=== PATIENT | male | born 1950 | race Caucasian/White ===

== ENCOUNTER → 2017-12-08 | Outpatient (CLI) | payer MEDICARE ==
[2017-12-08 19:48] LABS: Blood Urea Nitrogen 19 mg/dL (9-20)
--- NOTE | 2017-12-08 22:53 | MR ---
MRI CERVICAL SPINE: MRI THORACIC SPINE: CLINICAL HISTORY: Recurrent falls per order. Pain and weakness into both arms and fingers with histor y of Guillian Glasgow. Arm and leg weakness with dialysis use in March 22, 2011. TECHNIQUE: Multiplanar, multisequence imaging of the cervical the thoracic spine are performed withou t and with IV contrast, 10 cc of gadolinium was given intravenously. COMPARISON: None. FINDINGS: C-SPINE: Sagittal images of the cervical spine show the craniocervical junction to appear within normal limits . The cervical and upper thoracic spinal cord is normal in course, caliber, and signal. Vertebral a lignment is 3. The vertebral body heights are normal. There is [id number]-[id number] disc space narrowing C4-C5 through C6-C7 levels. Multilevel posterior disc herniations are seen C3-C4 through C6-C7 level s on sagittal images. The bone marrow signal intensity is within normal limits. No suspicious enhance ment is noted. [id number] multilevel anterior spurring is seen. Axial images show the C2-C3 level to appear within normal limits. Axial images at the C3-C4 level shows central disc protrusion effacing the anterior thecal sac, there is additional right foraminal disc protrusion component, there is mild to moderate right-sided neura l foraminal narrowing. Left-sided neural foramina is patent. Axial images at C4-C5 level showed broad based posterior disc protrusion effacing anterior thecal sac , there is mild bilateral neural foraminal narrowing noted. Axial images at C5-C6 level show more prominent broad-based posterior disc protrusion with right para central/foraminal component, there is effacement of the anterior thecal sac with fairly moderate bila teral neural foraminal narrowing. Axial images at C6-C7 levels are broad-based posterior disc protrusion effacing anterior thecal sac a nd causing moderate bilateral neural foraminal narrowing. Axial images at C7-T1 level showed right paracentral/foraminal spur disc complex effacing anterior le ft thecal sac and causing asymmetric moderate to advanced right-sided neural foraminal narrowing. Lef t-sided neural foramina is patent. IMPRESSION: Straightening of cervical spine with multilevel degenerative changes seen as detailed abo ve. T-SPINE: FINDINGS: Spinal cord shows normal course, caliber, and signal as it courses the thoracic spine. Ana tebral body heights and alignment are satisfactory. Disc space heights are fairly well maintained. Th ere are small posterior disc herniations noted at T6-T7, T7-T8, T9-T10, T10-T11 levels effacing anter ior thecal sac on sagittal images . Bone marrow signal intensity shows some heterogeneous endplate ch anges in the lower thoracic spine. There is mild to moderate multilevel anterior and lateral spurring . No suspicious enhancement is seen. Review of the axial images also shows facet arthropathy and ligamentum flavum hypertrophy effacing po sterior lateral thecal sac T10-11 and T11-T12 levels. No additional disc herniations are seen. No efrain picious enhancement is noted. IMPRESSION: Multilevel degenerative changes in the mid to lower thoracic spine as detailed above.
== END ==
LOC: RADMRIMAIN 19:12
PROVIDERS: ATTEND Psychiatry & Neurology Neurology
DX: M48.02 Spinal stenosis, cervical region (principal); M99.71 Connective tissue and disc stenosis of intervertebral foramina of cervical region; M50.21 Other cervical disc displacement, high cervical region; M47.812 Spondylosis without myelopathy or radiculopathy, cervical region; M51.24 Other intervertebral disc displacement, thoracic region; M46.94 Unspecified inflammatory spondylopathy, thoracic region; M47.814 Spondylosis without myelopathy or radiculopathy, thoracic region; Z79.899 Other long term (current) drug therapy
CPT/HCPCS: 82565; 84520; 72156; 72157; A9581

== ENCOUNTER → 2018-01-19 | Outpatient (CLI) | payer MEDICARE ==
--- NOTE | 2018-01-20 07:30 | MR ---
MR brain without contrast HISTORY: Gait dysfunction and repeated falls Multiplanar multisequence imaging obtained through the brain No comparisons There is no restricted diffusion. Corpus callosum, pituitary, cervical medullary junction, cerebellop ontine angles are normal. Orbits show symmetric appearance. There is no hemorrhage or hydrocephalus. Brain signal is remarkable for punctate focus of hyperintensity within the subcortical white matter a xial image 23 in the left frontal lobe of questionable clinical significance.. Minimal inflammatory c hange right mastoid air cells. Mild mucosal disease present in the maxillary sinuses. There is age-re lated atrophy. IMPRESSION: No abnormality evident to account for patient's symptoms. Mild sinus disease, inflammator y change right mastoid air cells. Nonspecific focus of demyelination of questionable clinical signifi cance.
== END ==
LOC: RADMRIMAIN 19:00
PROVIDERS: ATTEND Psychiatry & Neurology Neurology
DX: R26.9 Unspecified abnormalities of gait and mobility (principal); R29.6 Repeated falls
CPT/HCPCS: 70551

== ENCOUNTER → 2019-03-30 | Outpatient (CLI) | payer MEDICARE ==
--- NOTE | 2019-03-30 15:18 | US ---
EXAMINATION TYPE: US carotid duplex BILAT DATE OF EXAM: 03/30/2019 COMPARISON: MR brain CLINICAL HISTORY: R42 LIGHT HEADEDNESS. Dizziness is noted after walking 1mile EXAM MEASUREMENTS: RIGHT: Peak Systolic Velocity (PSV) cm/sec ----- Right CCA: 79.1 ----- Right ICA: 62.3 ----- Right ECA: 89.2 ICA/CCA ratio: 0.8 RIGHT: End Diastole cm/sec ----- Right CCA: 24.8 ----- Right ICA: 17.2 ----- Right ECA: 15.9 LEFT: Peak Systolic Velocity (PSV) cm/sec ----- Left CCA: 79.1 ----- Left ICA: 66.8 ----- Left ECA: 73.1 ICA/CCA ratio: 0.8 LEFT: End Diastole cm/sec ----- Left CCA: 28.5 ----- Left ICA: 25.1 ----- Left ECA: 13.8 VERTEBRALS (direction of flow): Right Vertebral: Antegrade Left Vertebral: Antegrade Rhythm: Normal Very mild intimal wall thickening, but PSV is wnl bilaterally. IMPRESSION: Mild degree of grayscale atheromatous plaquing with no sonographically evident hemodynam ically significant stenosis within either visualized carotid arterial system. Criteria for Assigning % of Stenosis / Diameter reduction (Estimation based on the indirect measurements of the internal carotid artery velocities (ICA PSV). 1. Normal (no stenosis)=ICA PSV < 125 cm/s: ratio < 2.0: ICA EDV<40 cm/s. 2. Less than 50% stenosis=ICA PSV < 125 cm/s: ratio < 2.0: ICA EDV<40 cm/s. 3. 50 to 69% stenosis=ICA PSV of 125 to 230 cm/s: ration 2.0 ? 4.0: ICA EDV 40-100 cm/s. 4. Greater than 70% stenosis to near occlusion= ICA PSV > 230 cm/s: ratio > 4.0: ICA EDV > 100 cm/s. 5. Near occlusion= ICA PSV velocities may be low or undetectable: variable ratio and ICA EDV. 6. Total occlusion=unable to detect flow.
== END | disposition home or self-care (01) ==
LOC: RADUSWWP 13:24
PROVIDERS: ATTEND Internal Medicine Geriatric Medicine
DX: I65.23 Occlusion and stenosis of bilateral carotid arteries (principal)
CPT/HCPCS: 93880

== ENCOUNTER → 2019-04-12 | Outpatient (CLI) | payer MEDICARE, OTHER ==
--- NOTE | 2019-04-19 10:41 | HM ---
HOLTER MONITOR REPORT The 48-hour Holter monitor. 1. The -Holter monitor shows sinus mechanism with a mild MN prolongation. Sinus rhythm. 2. Sinus tachycardia. Heart rate is 54 to 138 beats per minute. Average 71 beats per minute. 3. No significant arrhythmias. 4. Occasional premature beats. JOSHUA / KELL: [id number] /
== END | disposition home or self-care (01) ==
LOC: RADECHMAIN 12:38
PROVIDERS: ATTEND Nurse Practitioner Gerontology
DX: R00.0 Tachycardia, unspecified (principal)
CPT/HCPCS: 93225; 93226

== ENCOUNTER → 2019-07-13 | Outpatient (CLI) | payer MEDICARE, OTHER ==
--- NOTE | 2019-07-13 11:44 | XR ---
EXAMINATION TYPE: XR lumbar spine 2 or 3V DATE OF EXAM: 07/13/2019 COMPARISON: None HISTORY: Falls, pain TECHNIQUE: Three-view lumbar spine FINDINGS: There 5 lumbar-type vertebral bodies. Pedicles are intact. There is diffuse loss of disc he ight throughout the lumbar spine greatest to L2-3 through L5-S1. Vacuum phenomenon is present L3-4, L 4-5, L5-S1. Spondylosis is present. Some posterior endplate spurring may be present L2-3 and L5-S1. MRI can be performed if additional evaluation would be of benefit. IMPRESSION: 1. No acute osseous abnormality. 2. Advanced degenerative disc changes and spondylosis discussed above.
== END | disposition home or self-care (01) ==
LOC: RADXRMAIN 10:30
PROVIDERS: ATTEND Internal Medicine Geriatric Medicine
DX: M47.896 Other spondylosis, lumbar region (principal)
CPT/HCPCS: 72100

== ENCOUNTER → 2019-08-17 | Outpatient (CLI) | payer MEDICARE, OTHER ==
--- NOTE | 2019-08-17 14:17 | MR ---
EXAMINATION TYPE: MR lumbar spine wo/w con DATE OF EXAM: 08/17/2019 1:28 PM COMPARISON: NONE HISTORY: Spinal Stenosis CONTRAST: The patient was injected with 10 mL intravenous Gadavist gadolinium contrast. Multiplanar, MultiSpin echo imaging of the lumbar spine was performed. L1-L2: Normal disc appearance without desiccation. No herniation, protrusion or disc bulging. No ca nal stenosis is present. Foramina are patent bilaterally. L2-L3: Severe disc desiccation with degenerative endplate marrow change and vacuum disc. Moderate cir cumferential disc bulge greatest posteriorly with hypertrophy of the ligamentum flavum and facet join t arthropathy resulting in moderate central stenosis as well as bilateral foraminal encroachment. L3-L4: Severe disc desiccation with degenerative endplate marrow change and vacuum disc. Moderate cir cumferential disc bulge greatest posteriorly with hypertrophy of the ligamentum flavum and facet join t arthropathy resulting in moderate central stenosis as well as bilateral foraminal encroachment. L4-L5: Moderate disc desiccation with posterior disc bulge. Constriction of the thecal sac with mild central stenosis. Bilateral lateral recess stenosis and bilateral foraminal encroachment. Facet joint arthropathy. L5-S1: Left-sided hemilaminectomy change. Severe disc desiccation with vacuum disc. Partially enhanci ng focus of decreased signal left paracentral region may reflect granulation tissue however a recurre nt disc herniation is difficult to exclude. There is left lateral recess stenosis and foraminal encro achment. Lumbar segments are intact. No paraspinal masses are identified. Conus medullaris has a normal appe arance. Multilevel degenerative endplate marrow change. IMPRESSION: 1. Multilevel degenerative disc disease as outlined above. 2. Multilevel central stenosis. 3. Recurrent disc herniation is difficult to exclude paracentrally and to the left at L5-S1 with left lateral recess stenosis and foraminal encroachment. Left hemilaminectomy changes at this level.
== END | disposition home or self-care (01) ==
LOC: RADMRIMAIN 11:51
PROVIDERS: ATTEND Internal Medicine Geriatric Medicine
DX: M51.36 Other intervertebral disc degeneration, lumbar region (principal); M48.061 Spinal stenosis, lumbar region without neurogenic claudication; Z98.890 Other specified postprocedural states
CPT/HCPCS: 72158; A9585

== ENCOUNTER → 2019-09-16 | Outpatient (CLI) | payer MEDICARE, OTHER ==
--- NOTE | 2019-09-16 19:20 | MR ---
EXAMINATION TYPE: MR brain wo/w con DATE OF EXAM: 09/16/2019 COMPARISON: MRI brain 01/19/2018 HISTORY: Falls, anteropulsion. Gait abnormality. TECHNIQUE: Multiplanar, multisequence images of the brain and brainstem is performed without and with IV contras t, utilizing 10.5 mL intravenous Gadavist . FINDINGS: Diffusion weighted images demonstrate no evidence of a recent infarct or other diffusion ab normality. There is no extra-axial fluid collection or significant white matter signal abnormality. Prominent ventricular temporal horns are unchanged versus 2018 comparison and most likely related to age-related volume loss. Otherwise the ventricular system and cisternal spaces are normal in size an d appearance. Midline structures demonstrate normal morphology. The craniocervical junction demonstrates normal al ignment with degenerative changes at the atlantooccipital joint. Post contrast images demonstrate no abnormal enhancement. The dural venous sinuses appear patent. The visualized sinuses are clear and t he globes are intact. Small focus of fluid of the right mastoid air cells unchanged versus 2018. IMPRESSION: No abnormality to account for patient's symptoms of falls and gait abnormality.
== END | disposition home or self-care (01) ==
LOC: RADMRIMAIN 08:27
PROVIDERS: ATTEND Psychiatry & Neurology Neurology
DX: R26.89 Other abnormalities of gait and mobility (principal)
CPT/HCPCS: 70553; A9585

== ENCOUNTER → 2019-10-25 | Outpatient (CLI) | payer MEDICARE, OTHER ==
--- NOTE | 2019-10-25 17:29 | MR ---
EXAMINATION TYPE: MR cervical spine wo con DATE OF EXAM: 10/25/2019 COMPARISON: None HISTORY: 69-year-old male Recurrent falls; r/o myelopathy TECHNIQUE: Multiplanar, multisequence images of the cervical spine were acquired. FINDINGS: No craniocervical junction abnormality, predental space widening, or prevertebral soft tissue swellin g. There is grade 1 anterolisthesis at C3-C4. Otherwise, alignment is maintained. No suspicious bone marrow replacement. Scattered facet and uncovertebral joint degenerative change. Moderate degenerative disc disease from C4 through C7 levels with disc space narrowing, disc desiccat ion, disc osteophyte complex formation. At C2-C3, mild facet arthropathy. No significant canal or foraminal stenosis. At C3-C4, mild discussed by complex formation with ligamentum flavum thickening and facet and uncover tebral joint arthropathy. Changes result in moderate right neuroforaminal stenosis. Mild overall narr owing of the spinal canal. At C4-C5, as discussed by complex formation with uncovertebral joint and facet degenerative change. M ild overall narrowing of the spinal canal. No significant neural foraminal stenosis. At C5-C6, broad-based disc osteophyte complex with ligamentum flavum thickening and uncovertebral devin nt and facet degenerative change. Changes result in moderate right greater than left neuroforaminal s tenosis. There is mild overall spinal canal stenosis with abutment and slight flattening of the ventr al cord. At C6-C7, broad-based disc osteophyte complex with hypertrophic uncovertebral joint and facet arthrop athy. Changes result in moderate to severe left and moderate right neuroforaminal stenosis. Mild over all spinal canal stenosis with impression on the ventral thecal sac but no cord contact or cord jef ening. At C7-T1, there is a right paracentral disc osteophyte complex with facet and uncovertebral joint art hropathy. Changes result in moderate right neuroforaminal stenosis. No spinal canal stenosis. Normal course and signal intensity of the cervical spinal cord. No prevertebral or paravertebral soft tissue abnormality seen. IMPRESSION: 1. Moderate multilevel spondylotic change. Degenerative grade 1 anterolisthesis at C3-C4. 2. Multilevel mild spinal canal stenoses. At some levels, disc osteophyte complex abuts and slightly flattens the ventral cord. No cord compression or myelopathic cord signal change. 3. Variable moderate neural foraminal stenoses as outlined above, more moderate to severe on the left at C6-C7.
== END | disposition home or self-care (01) ==
LOC: RADMRIMAIN 11:55
PROVIDERS: ATTEND Psychiatry & Neurology Neurology
DX: M48.02 Spinal stenosis, cervical region (principal); Z91.81 History of falling; M25.78 Osteophyte, vertebrae
CPT/HCPCS: 72141

== ENCOUNTER 2020-10-01 18:20 | Inpatient (IN) | payer MEDICARE, OTHER ==
[2020-10-01] MEDS ORDERED: ACETAMINOPHEN TAB 500 MG TAB PO STA (18:39)
[2020-10-01] MEDS ORDERED: IBUPROFEN 600 MG TAB PO STA (18:39)
--- NOTE | 2020-10-01 18:42 | ED ---
General Adult HPI - General Chief complaint: Altered Mental Status Stated complaint: memory loss/fever Time Seen by Provider: 10/01/20 18:34 Source: patient, family, RN notes reviewed Mode of arrival: wheelchair Limitations: no limitations - History of Present Illness Initial comments: Patient is a pleasant [age]-year-old male presenting to the emergency department with confusion and fever. Son is present and provides majority of history. Onset of symptoms was today. Patient did seem somewhat confused about several things. They did check his temperature at 102.0 at home. Patient does admit to having mild cough recently. Son has noticed also mild cough. Nonproductive. No urinary symptoms. No abdominal pain. No other upper respiratory symptoms. Patient did not receive covid vaccination secondary to history of Guellian barre - Related Data Home Medications Medication Instructions Recorded Confirmed Aspirin EC [Ecotrin Low Dose] 81 mg PO DAILY 10/01/20 10/01/20 Carbidopa-Levodopa 25-100 mg 1.5 tab PO TID 10/01/20 10/01/20 [Sinemet 25-100] Levothyroxine Sodium [Synthroid] 150 mcg PO DAILY 10/01/20 10/01/20 Multivitamins, Thera [Multivitamin 1 tab PO DAILY 10/01/20 10/01/20 (formulary)] Pregabalin [Lyrica] 150 mg PO TID 10/01/20 10/01/20 Tamsulosin HCl [Flomax] 0.4 mg PO DAILY 10/01/20 10/01/20 metFORMIN HCL [Glucophage] 1,000 mg PO BID 10/01/20 10/01/20 Allergies Allergy/AdvReac Type Severity Reaction Status Date / Time Sulfa (Sulfonamide Allergy Unknown Verified 10/01/20 20:11 Antibiotics) Review of Systems ROS Statement: Those systems with pertinent positive or pertinent negative responses have been documented in the HPI. ROS Other: All systems not noted in ROS Statement are negative. Constitutional: Reports: fever, chills, weakness Eyes: Denies: eye pain ENT: Denies: ear pain Respiratory: Reports: cough. Denies: dyspnea Cardiovascular: Denies: chest pain Endocrine: Reports: fatigue Gastrointestinal: Denies: abdominal pain, nausea, vomiting Genitourinary: Denies: dysuria Musculoskeletal: Denies: back pain Skin: Denies: rash Neurological: Reports: confusion. Denies: weakness Past Medical History Past Medical History: Diabetes Mellitus Additional Past Medical History / Comment(s): guillian-barre syndrome, parkinsons History of Any Multi-Drug Resistant Organisms: None Reported Past Surgical History: Back Surgery Past Psychological History: No Psychological Hx Reported Smoking Status: Never smoker Past Alcohol Use History: None Reported Past Drug Use History: None Reported General Exam Limitations: no limitations General appearance: alert, in no apparent distress Head exam: Present: atraumatic Eye exam: Present: normal appearance, PERRL, EOMI ENT exam: Present: normal oropharynx Neck exam: Present: normal inspection, full ROM. Absent: tenderness, meningismus Respiratory exam: Present: normal lung sounds bilaterally Cardiovascular Exam: Present: regular rate, normal rhythm GI/Abdominal exam: Present: soft. Absent: tenderness Extremities exam: Present: normal inspection Neurological exam: Present: alert, CN II-XII intact. Absent: motor sensory deficit Expanded Patient oriented to: Absent: time Psychiatric exam: Present: normal affect, normal mood Skin exam: Present: normal color Course Vital Signs 10/01/20 10/01/20 10/01/20 18:21 18:48 20:24 Temperature 99.8 F H 103.2 F H 100.4 F H Pulse Rate 109 H 108 H 91 Respiratory 18 18 18 Rate Blood Pressure 149/79 139/81 122/79 O2 Sat by Pulse 96 92 L 95 Oximetry - Reevaluation(s) Reevaluation #1: 10/01/20 21:11 There is concern for sepsis diagnosed at 2030. Blood culture and lactic acid and IV antibiotics have all been ordered. EKG Findings - EKG Comments: EKG Findings:: Sinus tachycardia with rate of 107. WA 172. QRS 90. QT 36. QTc 408. Normal axis. Q wave in lead III. No acute ST change. Medical Decision Making - Medical Decision Making Patient reevaluated and significantly improved. Patient updated on results and plan. Patient is alert and oriented 3. Case discussed with Dr. Robert, covering Dr. davis, who will admit. - Lab Data Result diagrams: 10/01/20 18:46 10/01/20 18:46 Lab Results 10/01/20 10/01/20 10/01/20 Range/Units 18:46 18:46 18:46 WBC 9.3 (3.8-10.6) k/uL RBC 4.99 (4.30-5.90) m/uL Hgb 15.4 (13.0-17.5) gm/dL Hct 45.3 (39.0-53.0) % MCV 90.8 (80.0-100.0) fL MCH 30.8 (25.0-35.0) pg MCHC 33.9 (31.0-37.0) g/dL RDW 14.4 (11.5-15.5) % Plt Count 189 (150-450) k/uL MPV 7.9 Neutrophils % 87 % Lymphocytes % 7 % Monocytes % 2 % Eosinophils % 2 % Basophils % 0 % Neutrophils # 8.1 H (1.3-7.7) k/uL Lymphocytes # 0.7 L (1.0-4.8) k/uL Monocytes # 0.2 (0-1.0) k/uL Eosinophils # 0.2 (0-0.7) k/uL Basophils # 0.0 (0-0.2) k/uL PT 10.7 (9.0-12.0) sec INR 1.0 (<1.2) APTT 21.1 L (22.0-30.0) sec Sodium (137-145) mmol/L Potassium (3.5-5.1) mmol/L Chloride (98-107) mmol/L Carbon Dioxide (22-30) mmol/L Anion Gap mmol/L BUN (9-20) mg/dL Creatinine (0.66-1.25) mg/dL Est GFR (CKD-EPI)AfAm (>60 ml/min/1.73 sqM) Est GFR (CKD-EPI)NonAf (>60 ml/min/1.73 sqM) Glucose (74-99) mg/dL Lactic Ac Sepsis Rflx Plasma Lactic Acid Be (0.7-2.0) mmol/L Calcium (8.4-10.2) mg/dL Total Bilirubin (0.2-1.3) mg/dL AST (17-59) U/L ALT (4-49) U/L Alkaline Phosphatase (38-126) U/L Total Protein (6.3-8.2) g/dL Albumin (3.5-5.0) g/dL Urine Color Yellow Urine Appearance Clear (Clear) Urine pH 7.0 (5.0-8.0) Ur Specific [place] 1.016 (1.001-1.035) Urine Protein Negative (Negative) Urine Glucose (UA) Negative (Negative) Urine Ketones Trace H (Negative) Urine Blood Large H (Negative) Urine Nitrite Negative (Negative) Urine Bilirubin Negative (Negative) Urine Urobilinogen <2.0 (<2.0) mg/dL Ur Leukocyte Esterase Large H (Negative) Urine RBC 110 H (0-5) /hpf Urine WBC 69 H (0-5) /hpf Urine Bacteria Moderate H (None) /hpf Urine Mucus Rare H (None) /hpf Coronavirus (PCR) (Not Detectd) 10/01/20 10/01/20 10/01/20 Range/Units 18:46 18:46 18:57 WBC (3.8-10.6) k/uL RBC (4.30-5.90) m/uL Hgb (13.0-17.5) gm/dL Hct (39.0-53.0) % MCV (80.0-100.0) fL MCH (25.0-35.0) pg MCHC (31.0-37.0) g/dL RDW (11.5-15.5) % Plt Count (150-450) k/uL MPV Neutrophils % % Lymphocytes % % Monocytes % % Eosinophils % % Basophils % % Neutrophils # (1.3-7.7) k/uL Lymphocytes # (1.0-4.8) k/uL Monocytes # (0-1.0) k/uL Eosinophils # (0-0.7) k/uL Basophils # (0-0.2) k/uL PT (9.0-12.0) sec INR (<1.2) APTT (22.0-30.0) sec Sodium 137 (137-145) mmol/L Potassium 4.5 (3.5-5.1) mmol/L Chloride 104 (98-107) mmol/L Carbon Dioxide 22 (22-30) mmol/L Anion Gap 11 mmol/L BUN 17 (9-20) mg/dL Creatinine 0.88 (0.66-1.25) mg/dL Est GFR (CKD-EPI)AfAm >90 (>60 ml/min/1.73 sqM) Est GFR (CKD-EPI)NonAf 88 (>60 ml/min/1.73 sqM) Glucose 134 H (74-99) mg/dL Lactic Ac Sepsis Rflx Plasma Lactic Acid Be 3.0 H* (0.7-2.0) mmol/L Calcium 10.6 H (8.4-10.2) mg/dL Total Bilirubin 0.6 (0.2-1.3) mg/dL AST 72 H (17-59) U/L ALT 60 H (4-49) U/L Alkaline Phosphatase 87 (38-126) U/L Total Protein 7.4 (6.3-8.2) g/dL Albumin 4.3 (3.5-5.0) g/dL Urine Color Urine Appearance (Clear) Urine pH (5.0-8.0) Ur Specific [place] (1.001-1.035) Urine Protein (Negative) Urine Glucose (UA) (Negative) Urine Ketones (Negative) Urine Blood (Negative) Urine Nitrite (Negative) Urine Bilirubin (Negative) Urine Urobilinogen (<2.0) mg/dL Ur Leukocyte Esterase (Negative) Urine RBC (0-5) /hpf Urine WBC (0-5) /hpf Urine Bacteria (None) /hpf Urine Mucus (None) /hpf Coronavirus (PCR) Not Detected (Not Detectd) 10/01/20 Range/Units 19:08 WBC (3.8-10.6) k/uL RBC (4.30-5.90) m/uL Hgb (13.0-17.5) gm/dL Hct (39.0-53.0) % MCV (80.0-100.0) fL MCH (25.0-35.0) pg MCHC (31.0-37.0) g/dL RDW (11.5-15.5) % Plt Count (150-450) k/uL MPV Neutrophils % % Lymphocytes % % Monocytes % % Eosinophils % % Basophils % % Neutrophils # (1.3-7.7) k/uL Lymphocytes # (1.0-4.8) k/uL Monocytes # (0-1.0) k/uL Eosinophils # (0-0.7) k/uL Basophils # (0-0.2) k/uL PT (9.0-12.0) sec INR (<1.2) APTT (22.0-30.0) sec Sodium (137-145) mmol/L Potassium (3.5-5.1) mmol/L Chloride (98-107) mmol/L Carbon Dioxide (22-30) mmol/L Anion Gap mmol/L BUN (9-20) mg/dL Creatinine (0.66-1.25) mg/dL Est GFR (CKD-EPI)AfAm (>60 ml/min/1.73 sqM) Est GFR (CKD-EPI)NonAf (>60 ml/min/1.73 sqM) Glucose (74-99) mg/dL Lactic Ac Sepsis Rflx Y Plasma Lactic Acid Be (0.7-2.0) mmol/L Calcium (8.4-10.2) mg/dL Total Bilirubin (0.2-1.3) mg/dL AST (17-59) U/L ALT (4-49) U/L Alkaline Phosphatase (38-126) U/L Total Protein (6.3-8.2) g/dL Albumin (3.5-5.0) g/dL Urine Color Urine Appearance (Clear) Urine pH (5.0-8.0) Ur Specific [place] (1.001-1.035) Urine Protein (Negative) Urine Glucose (UA) (Negative) Urine Ketones (Negative) Urine Blood (Negative) Urine Nitrite (Negative) Urine Bilirubin (Negative) Urine Urobilinogen (<2.0) mg/dL Ur Leukocyte Esterase (Negative) Urine RBC (0-5) /hpf Urine WBC (0-5) /hpf Urine Bacteria (None) /hpf Urine Mucus (None) /hpf Coronavirus (PCR) (Not Detectd) - Radiology Data Radiology results: report reviewed (Computed tomography scan of the brain shows no hemorrhage or mass effect or shift. Mildly prominent ventricular system, possible normal pressure hydrocephalus.), image reviewed (Chest x-ray shows no acute process) Critical Care Time Critical Care Time: Yes Total Critical Care Time: 33 Disposition Clinical Impression: Sepsis, Urinary tract infection Disposition: ADMITTED IP TO THIS HOSP Is patient prescribed a controlled substance at d/c from ED?: No Referrals: Guru Davis MD [Primary Care Provider] - 1-2 days Decision Time: 21:12
[2020-10-01] MEDS: SODIUM CHLORIDE 0.9% 500 ML 500 ML IV SCH ×2 (18:53→20:10)
[2020-10-01 18:59] LABS: Basophils % (A) 0 %; Eosinophils # (A) 0.2 k/uL (0-0.7); Eosinophils % (A) 2 %; HCT 45.3 % (39.0-53.0); HGB 15.4 gm/dL (13.0-17.5); Lymphocytes # (A) 0.7 k/uL (1.0-4.8); Lymphocytes % (A) 7 %; MCH 30.8 pg (25.0-35.0); MCHC 33.9 g/dL (31.0-37.0); MCV 90.8 fL (80.0-100.0); Mean Platelet Volume 7.9; Monocytes # (A) 0.2 k/uL (0-1.0); Monocytes % (A) 2 %; Neutrophils # (A) 8.1 k/uL (1.3-7.7); Neutrophils % (A) 87 %; Platelet Count 189 k/uL (150-450); RBC 4.99 m/uL (4.30-5.90); RDW 14.4 % (11.5-15.5); WBC 9.3 k/uL (3.8-10.6)
[2020-10-01 19:06] LABS: ALT 60 U/L (4-49); AST 72 U/L (17-59); African American GFR (CKD) >90 (>60 ml/min/1.73 sqM); Albumin 4.3 g/dL (3.5-5.0); Alkaline Phosphatase 87 U/L (38-126); Anion Gap 11 mmol/L; Blood Urea Nitrogen 17 mg/dL (9-20); Calcium 10.6 mg/dL (8.4-10.2); Carbon Dioxide 22 mmol/L (22-30); Chloride 104 mmol/L (98-107); Glucose 134 mg/dL (74-99); Non-African American GFR(CKD) 88 (>60 ml/min/1.73 sqM); Potassium 4.5 mmol/L (3.5-5.1); Sodium 137 mmol/L (137-145); Total Bilirubin 0.6 mg/dL (0.2-1.3); Total Protein 7.4 g/dL (6.3-8.2)
[2020-10-01] MEDS ORDERED: SODIUM CHLORIDE 0.9% 1,000 ML IV STA ×2 (19:13)
[2020-10-01 19:14] LABS: Prothrombin Time 10.7 sec (9.0-12.0)
--- NOTE | 2020-10-01 19:21 | CT ---
EXAMINATION TYPE: CT brain wo con DATE OF EXAM: 10/01/2020 1906 COMPARISON: Brain MRI 09/16/2019 and 01/19/2018 HISTORY: Altered mental status. CT DLP: 1153.4 mGycm Automated exposure control for dose reduction was used. FINDINGS: Acute intracranial hemorrhage, mass effect, or midline shift. Mildly prominent ventricular system, wh ich has mildly progressed compared to prior and is slightly out of proportion for the sulci. White di fferentiation is preserved. No CT evidence of large vessel ischemic changes. IMPRESSION: 1. NO ACUTE INTRACRANIAL HEMORRHAGE, MASS EFFECT, OR MIDLINE SHIFT. 2. MILDLY PROMINENT VENTRICULAR SYSTEM SLIGHTLY OUT OF PROPORTION FOR THE SULCI, WHICH HAS PROGRESSED COMPARED TO PRIOR. FINDINGS MAY RELATE TO CENTRAL ATROPHY; HOWEVER, RECOMMEND CLINICAL CORRELATION F OR NORMAL PRESSURE HYDROCEPHALUS.
--- NOTE | 2020-10-01 19:22 | XR ---
EXAMINATION TYPE: XR chest 2V DATE OF EXAM: 10/01/20201913 COMPARISON: NONE HISTORY: Altered mental status TECHNIQUE: Frontal and lateral views of the chest are obtained. FINDINGS: There is no focal air space opacity, pleural effusion, or pneumothorax seen. The cardiac silhouette size is within normal limits. The osseous structures are intact. IMPRESSION: No acute cardiopulmonary process.
[2020-10-01 19:33] LABS: Partial Thromboplastin Time 21.1 sec (22.0-30.0)
[2020-10-01 20:36] LABS: Appearance,Urine Clear (Clear); Bacteria,Urine Moderate /hpf; Bilirubin,Urine Negative (Negative); Blood,Urine Large (Negative); Color,Urine Yellow; Glucose,Urine (UA) Negative (Negative); Ketones,Urine Trace (Negative); Leukocyte Esterase,Urine Large (Negative); Mucus,Urine Rare /hpf; Nitrite,Urine Negative (Negative); Protein,Urine Negative (Negative); RBC,Urine 110 /hpf (0-5); Specific Gravity,Urine 1.016 (1.001-1.035); Urobilinogen,Urine <2.0 mg/dL (<2.0); WBC,Urine 69 /hpf (0-5)
[2020-10-01] MEDS ORDERED: NALOXONE 0.4 MG/ML 1 ML VIAL IV PRN (21:13)
[2020-10-01] MEDS: SODIUM CHLORIDE 0.9% 1,000 ML IV SCH (21:15)
[2020-10-02] MEDS: LEVOTHYROXINE 75 MCG TAB PO SCH (05:43)
[2020-10-02] MEDS: SODIUM CHLORIDE 0.9% 1,000 ML IV SCH (05:49)
[2020-10-02] MEDS ORDERED: metFORMIN 500 MG TAB PO SCH (09:00)
[2020-10-02] MEDS: TAMSULOSIN 0.4 MG CAP.ER.24H PO SCH (09:24)
[2020-10-02] MEDS: PREGABALIN 75 MG CAP PO SCH ×3 (09:25→21:15)
[2020-10-02] MEDS: ASPIRIN 81 MG PO SCH (09:25)
[2020-10-02] MEDS: CARBIDOPA-LEVODOPA 25-100 MG 1 EACH TAB PO SCH ×3 (09:27→21:16)
--- NOTE | 2020-10-02 10:24 | P.HPIM ---
History of Present Illness H&P Date: 10/02/20 HISTORY OF PRESENT ILLNESS This is a 70-year-old male patient of Dr. Pennington with past medical history of diabetes mellitus type 2, diabetic poly-neuropathy, Guillain-Hoffman syndrome in 2007, Parkinson's, hypothyroidism, chronic back pain with lumbar surgery approximately 25 years ago. He denies history of stroke. Patient has had ongoing problems with weakness and degenerative disc disease and follows with Dr. Erica Benitez) [facility]ists at [facility]. The patient has chronic tremor secondary to Parkinson's but he does go to the gym 4 times per week and is able to walk on a treadmill at 1.8 miles per hour. He does not use a cane or walker. Patient states that he was confused yesterday afternoon which occurred around 4 or 5 PM. Family past on the patient was feeling dizzy falling a lot and had a fall prior to coming into the hospital. Patient apparently was confused and unable to answer questions appropriately. Patient presented to [facility] emergency center with temperature max of 103.2, heart rate 109, blood pressure 149/79 and pulse ox 96%. EKG was sinus tachycardia with no acute ST changes. CBC was normal. Electrolytes and renal function within normal limits. Blood sugar 134. INR 1.0. Urinalysis clear, blood large, leukoesterase large, WBC 69, RBCs 110, bacteria moderate. Lactic acid 3.0. Calcium 10.6, total bilirubin 0.6, AST 72, ALT 60, apply phosphatase 87. Albumin 4.3. Coronavirus PCR not detected. est x-ray shows no acute cardio pulmonary process. CT of the brain revealed no acute intracranial hemorrhage, mass effect or midline shift. Mildly prominent ventricular system slightly out of proportion for the sulci which has progressed compared to prior. Findings may be related to central atrophy however recommend clinical correlation for normal pressure hydrocephalus. Patient admitted to the [facility] floor and started on ceftriaxone and IV fluids, consult with neurology added. REVIEW OF SYSTEMS Constitutional: Noted fever, no chills, no night sweats. No weight change. No weakness, fatigue or lethargy. No daytime sleepiness. EENT: No headache. No blurred vision or double vision, no loss of vision. No loss of Hearing, no ringing in the ears, no dizziness. No nasal drainage or congestion. No epistaxis. No sore throat. Lungs: No shortness of breath, cough, no sputum production. No wheezing. Cardiovascular: No chest pain, no lower extremity edema. No palpitations. No paroxysmal nocturnal dyspnea. No orthopnea. Reported dizziness. No syncopal e pisodes. Abdominal: No abdominal pain. No nausea, vomiting. No diarrhea. No constipation. No bloody or tarry stools.. No loss of appetite. Genitourinary: No dysuria, increased frequency, urgency. No urinary retention. Musculoskeletal: No myalgias. No muscle weakness, reported gait dysfunction, reported frequent falls. Reported chronic back pain. Reported chronic neck pain. Integumentary: No wounds, no lesions. No rash or pruritus. No unusual bruising. No change in hair or nails. Neurologic: No aphasia. No facial droop. Reported change in mentation with confusion. No head injury. No headache. No paralysis. No paresthesia. Psychiatric: No depression. No anxiety. No mood swings. Endocrine: No abnormal blood sugars. No weight change. No excessive sweating or thirst. No cold intolerance. SOCIAL HISTORY Patient is a lifelong nonsmoker. He denies any alcohol or street drug use. He is using THC cream for neuropathy. FAMILY HISTORY Mother is alive at age 90 with no major medical problems. Father at age 88 from dementia. Patient has 2 brothers and 2 sisters with no major medical problems. Patient has one son and one daughter with no major medical problems.. PHYSICAL EXAMINATION Gen: This is a 70-year-old male patient, resting in bed and appears to be comfortable and in no acute distress. HEENT: Head is atraumatic, normocephalic. Pupils equal, round. Sclerae is anicteric. NECK: Supple. No JVD. No lymphadenopathy. No thyromegaly. LUNGS: Clear to auscultation. No wheezes or rhonchi. No intercostal retractions. HEART: Regular rate and rhythm. No murmur. ABDOMEN: Soft. Bowel sounds are present. No masses. No tenderness. EXTREMITIES: No pedal edema. No calf tenderness. Chronic numbness to the anterior pretibial areas residual from Guillain-[place]sa syndrome. NEUROLOGICAL: Patient is awake, alert and oriented x3. Cranial nerves 2 through 12 are grossly intact. Tremor noted. ASSESSMENT AND PLAN 1. Sepsis secondary to acute urinary tract infection. Continue ceftriaxone 2 g IV piggyback daily. Monitor urine culture and blood cultures. 2. Lactic acidosis secondary to sepsis. Patient is status post 2-1/2 L of IV fluids. 3. Infectious metabolic encephalopathy and rule out and rule out normal pressure hydrocephalus . Continue treatment and #1. Neurology consult. 4. Frequent falls possibly related to worsening Parkinson's, exacerbated by sepsis. PT and OT.h 5. Diabetes mellitus type 2. Continue metformin 1000 mg twice daily, NovoLog scale before meals and at bedtime. 6. Diabetic polyneuropathy. Continue Lyrica 150 mg 3 times daily. 7. Parkinson's. Continue Sinemet 251 101-1/2 3 times daily. 8 Hypothyroidism. Continue levothyroxine 150 Scott grams daily. 9. Guillain-Tulsa syndrome in 2007. 10. Benign prostatic hypertrophy. Continue Flomax or 0.4 mg daily. 11. GI prophylaxis. Protonix. 12. DVT prophylaxis. Heparin subcu. Patient will be admitted to the hospital for a minimum of 2 night stay. DISCHARGE PLAN Home, to be determined. PT and OT consults.. Impression and plan of care have been directed as dictated by the signing physician. Sophie Hitchcock nurse practitioner acting as scribe for signing physician. Past Medical History Past Medical History: Diabetes Mellitus Additional Past Medical History / Comment(s): guillian-barre syndrome, parkinsons, rt. shoulder rotator cuff repair, lasic eye surgery, L4-L5 laporoscopy History of Any Multi-Drug Resistant Organisms: None Reported Past Surgical History: Back Surgery Past Psychological History: No Psychological Hx Reported Smoking Status: Never smoker Past Alcohol Use History: None Reported Past Drug Use History: None Reported Medications and Allergies Home Medications Medication Instructions Recorded Confirmed Type Aspirin EC [Ecotrin Low Dose] 81 mg PO DAILY 10/01/20 10/01/20 History Carbidopa-Levodopa 25-100 mg 1.5 tab PO TID 10/01/20 10/01/20 History [Sinemet 25-100] Levothyroxine Sodium [Synthroid] 150 mcg PO DAILY 10/01/20 10/01/20 History Multivitamins, Thera [Multivitamin 1 tab PO DAILY 10/01/20 10/01/20 History (formulary)] Pregabalin [Lyrica] 150 mg PO TID 10/01/20 10/01/20 History Tamsulosin HCl [Flomax] 0.4 mg PO DAILY 10/01/20 10/01/20 History metFORMIN HCL [Glucophage] 1,000 mg PO BID 10/01/20 10/01/20 History Allergies Allergy/AdvReac Type Severity Reaction Status Date / Time Sulfa (Sulfonamide Allergy Unknown Verified 10/01/20 20:11 Antibiotics) Physical Exam Vitals: Vital Signs Temp Pulse Pulse Resp BP BP Pulse Ox 10/02/20 02:00 98.3 F 70 17 100/65 98 10/01/20 22:10 98.8 F 77 18 113/67 97 10/01/20 21:50 98.7 F 82 18 105/75 95 10/01/20 20:24 100.4 F H 91 18 122/79 95 10/01/20 18:48 103.2 F H 108 H 18 139/81 92 L 10/01/20 18:21 99.8 F H 109 H 18 149/79 96 Intake and Output 10/01/20 10/02/20 10/02/20 22:59 06:59 14:59 Other: Voiding Method Urinal # Voids 2 Weight 108.862 kg Results CBC & Chem 7: 10/01/20 18:46 10/01/20 18:46 Labs: Abnormal Lab Results - Last 24 Hours (Table) 10/01/20 10/01/20 10/01/20 Range/Units 18:46 18:46 18:46 Neutrophils # 8.1 H (1.3-7.7) k/uL Lymphocytes # 0.7 L (1.0-4.8) k/uL APTT 21.1 L (22.0-30.0) sec Glucose (74-99) mg/dL Plasma Lactic Acid Be (0.7-2.0) mmol/L Calcium (8.4-10.2) mg/dL AST (17-59) U/L ALT (4-49) U/L Urine Ketones Trace H (Negative) Urine Blood Large H (Negative) Ur Leukocyte Esterase Large H (Negative) Urine RBC 110 H (0-5) /hpf Urine WBC 69 H (0-5) /hpf Urine Bacteria Moderate H (None) /hpf Urine Mucus Rare H (None) /hpf 08/01/21 08/01/21 Range/Units 18:46 18:46 Neutrophils # (1.3-7.7) k/uL Lymphocytes # (1.0-4.8) k/uL APTT (22.0-30.0) sec Glucose 134 H (74-99) mg/dL Plasma Lactic Acid Be 3.0 H* (0.7-2.0) mmol/L Calcium 10.6 H (8.4-10.2) mg/dL AST 72 H (17-59) U/L ALT 60 H (4-49) U/L Urine Ketones (Negative) Urine Blood (Negative) Ur Leukocyte Esterase (Negative) Urine RBC (0-5) /hpf Urine WBC (0-5) /hpf Urine Bacteria (None) /hpf Urine Mucus (None) /hpf
--- NOTE | 2020-10-02 10:44 | US ---
EXAMINATION TYPE: US abdomen complete DATE OF EXAM: 10/02/2020 COMPARISON: NONE CLINICAL HISTORY: 70-year-old male elevated LFT, UTI r/o pyel. TECHNIQUE: Multiple sonographic images of the abdomen are obtained. FINDINGS: EXAM MEASUREMENTS: Liver Length: 18.4 cm Gallbladder Wall: .2 cm CBD: .5 cm Spleen: 13.6 cm Right Kidney: 11.9 x 5.0 x 5.2 cm Left Kidney: 12.7 x 5.8 x 5.1cm Pancreas: Only small portions of the pancreatic body are seen. Remainder is obscured by bowel gas sh adowing. Liver: Mildly enlarged, echogenic, and attenuating. The secondary limits assessment for focal lesions . Gallbladder: No gallstones or wall thickening. Evidence for sonographic Zhao's sign: No CBD: wnl Spleen: Borderline in size. Right Kidney: wnl Left Kidney: wnl Upper IVC: wnl Abd Aorta: Limited IMPRESSION: 1. Hepatomegaly (18.4 cm) with severe hepatic steatosis. This secondarily limits assessment for focal lesions by ultrasound. 2. No gallstones or biliary ductal dilatation. 3. No hydronephrosis on either side.
[2020-10-02] MEDS: MULTIVITAMINS, THERA 1 EACH TAB PO SCH (11:34)
--- NOTE | 2020-10-02 12:11 | ECHOF ---
Referral Reason:LVF MEASUREMENTS -------- HEIGHT: 180.3 cm WEIGHT: 108.9 kg BP: 120/76 RVIDd: 3.5 cm (< 3.3) IVSd: 1.3 cm (0.6 - 1.1) LVIDd: 4.6 cm (3.9 - 5.3) LVPWd: 1.7 cm (0.6 - 1.1) IVSs: 2.1 cm LVIDs: 2.7 cm LVPWs: 2.3 cm Ao Diam: 3.6 cm (2.0 - 3.7) AV Cusp: 2.2 cm (1.5 - 2.6) LA Diam: 3.9 cm (2.7 - 3.8) MV EXCURSION: 10.759 mm (> 18.000) MV EF SLOPE: 33 mm/s (70 - 150) EPSS: 0.3 cm MV E Allen: 0.87 m/s MV DecT: 193 ms MV A Allen: 0.75 m/s MV E/A Ratio: 1.16 RAP: 5.00 mmHg RVSP: 13.69 mmHg FINDINGS -------- Sinus rhythm. This was a technically difficult study with suboptimal views. The left ventricular size is normal. There is moderate concentric left ventricular hypertrophy. O verall left ventricular systolic function is normal with, an EF between 55 - 60 %. The right ventricle is mildly enlarged. The left atrial size is normal. The right atrial size is normal. Lumason used The aortic valve is trileaflet, and appears structurally normal. No aortic stenosis or regurgitation. The mitral valve is normal. Mild mitral regurgitation is present. The tricuspid valve appears structurally normal. Mild tricuspid regurgitation present. Right vent ricular systolic pressure is normal at < 35 mmHg. Trace/mild (physiologic) pulmonic regurgitation. The aortic root size is normal. Normal inferior vena cava with normal inspiratory collapse consistent with estimated right atrial pre ssure of 5 mmHg. There is no pericardial effusion. CONCLUSIONS -------- 1. This was a technically difficult study with suboptimal views. 2. There is moderate concentric left ventricular hypertrophy. 3. Overall left ventricular systolic function is normal with, an EF between 55 - 60 %. 4. The right ventricle is mildly enlarged. 5. The left atrial size is normal. 6. The aortic valve is trileaflet, and appears structurally normal. No aortic stenosis or regurgitati on. 7. Mild mitral regurgitation is present. 8. Mild tricuspid regurgitation present. 9. There is no pericardial effusion. [employer] SUPERVISOR: Sarahi Maldonado RDCS
--- NOTE | 2020-10-02 12:13 | P.CNNES ---
History of Present Illness Consult date: 10/02/20 Requesting physician: Sophie Hitchcock Reason for Consult: encephalopathy, parkinson's History of Present Illness: This is a 70-year-old gentleman with medical history of Parkinson's disease, Guillain-Clinton Syndrome (GBS) in 2007, diabetic polyneuropathy and neuropathy due to history of GBS, diabetes mellitus (for 20 years), chronic back pain, lumbar surgery about 25 years ago, hypothyroidism who presented to the emergency department on 10/01/2020 for confusion and fever. Some of the history is obtained from patient's daughter (Ana Laura) who is at bedside and medical records. According to the patient he was confused yesterday but unsure what transpired. Per the daughter she was notified around 4-5pm yesterday he was confused, had a temperature of 101F that was checked by the patient son and had generalized chi lls and tremor of entire body. Per the ED note they were notified the temp at home was 102F. per the daughter there is no focal deficit associated with the his confusion, there is no gaze deviation, no foaming around the mouth that was witnessed, no urinary or bowel incontinence. Patient denies of any headaches that he had the. Denies of any recent travel, denies of any visual disturbance, denies of any focal weakness, denies any history of seizure. Denies of any rash. Denies of any new neck pain. He does have history of chronic neck and lower back pain. He denies of any new numbness or tingling. She denies of any nausea or vomiting. Patient has chronic cough and it's not new. Today at patient stated that he has some headache over the occipital region and he stated it's because the way he was lying on the pillow but denies being very severe or aggravating. Denies any photophobia, nausea or vomitting. According to patient he has an episode of GBS in 2007 and he had a fever and then had significant weakness of the lower extremities as well as numbness. He also had upset stomach. He said that his symptoms currently are not as drastic as a the one in 2007 and he denies of any weakness or numbness the that's new. Patient stated that the during the 2007 his the weakness as a result but his numbness has not and his numbness is up to his knees bilaterally. He also has n umbness of bilateral hands up to the wrist and he said that predominantly has neuropathy due to GBS and some component due to diabetes. Patient does follow up with a neurologist over at the [facility] (Dr. Erica Tamayo). Regarding his Parkinson's he does not use a cane or walker but has tremor. He goes to the gym 4 times a week. A shunt has been diagnosed with Parkinson's disease and he has tremor of bilateral hands and he said he was diagnosed Parkinson's disease in the last 1 year. He has chronic falls because of the way he walks and likely due to neuropathy and he said that he does not lose consciousness with these episodes and he was told it's because of that his gait while walking. He denies using any cane or walker Some of the patient's home medications consists of: ASA 81mg daily, Metformin, Sinement 25-100mg 1 1/2 tab tid, synthroid, Flomax, Lyrica 150mg 1 tab tid. Some of the work-up in the hospital consisted of: Initial vitals his blood pressure of 149/79, heart rate of 109, temperature of 99.8 Fahrenheit oral, respiratory of 18 and pulse ox of 96% room air. Then next temperature was 103.2 Fahrenheit oral. Currently the patient has been afebrile. CT of the head is reported as no acute intracranial hemorrhage, mass effect or midline shift. Mildly prominent ventricular system slightly out of proportion for the sulci which has a progressed compared to prior. Finding may relate to central atrophy the; however recommend clinical correlation for normal pressure hydrocephalus. Chest x-rays reported as no acute cardiopulmonary process. Initial white blood cell is 9.3 thousand which is considered within normal limits. Chemistry panel was significant as a plasma lactic acid vein is 3.0 which is elevated, the glucose is 134 which is elevated but not too significant. AST of 72 and ALT of 60 which is elevated. Calcium is 10.6 which is elevated that. Urinalysis suggestive of UTI. Hoff virus not detected. Per the patient's nurse it seems that today the patient got up on his own and using his socks and not hospital and slipped and fell. He did not have any jerk in of any extremities, no loss of consciousness. Per the patient's nurse he is alert, oriented X3. No seizure activity noted. Review of Systems Review of system: The 12 point system was reviewed and apparent positive and negative per HPI. Past Medical History Past Medical History: Diabetes Mellitus Additional Past Medical History / Comment(s): guillian-barre syndrome, sandra sons, rt. shoulder rotator cuff repair, lasic eye surgery, L4-L5 laporoscopy History of Any Multi-Drug Resistant Organisms: None Reported Past Surgical History: Back Surgery Past Psychological History: No Psychological Hx Reported Smoking Status: Never smoker Past Alcohol Use History: None Reported Past Drug Use History: None Reported Medications and Allergies Home Medications Medication Instructions Recorded Confirmed Type Aspirin EC [Ecotrin Low Dose] 81 mg PO DAILY 10/01/20 10/01/20 History Carbidopa-Levodopa 25-100 mg 1.5 tab PO TID 10/01/20 10/01/20 History [Sinemet 25-100] Levothyroxine Sodium [Synthroid] 150 mcg PO DAILY 10/01/20 10/01/20 History Multivitamins, Thera [Multivitamin 1 tab PO DAILY 10/01/20 10/01/20 History (formulary)] Pregabalin [Lyrica] 150 mg PO TID 10/01/20 10/01/20 History Tamsulosin HCl [Flomax] 0.4 mg PO DAILY 10/01/20 10/01/20 History metFORMIN HCL [Glucophage] 1,000 mg PO BID 10/01/20 10/01/20 History Allergies Allergy/AdvReac Type Severity Reaction Status Date / Time Sulfa (Sulfonamide Allergy Unknown Verified 10/01/20 20:11 Antibiotics) Physical Examination - Vital Signs Vital Signs: Vital Signs Temp Pulse Pulse Pulse Pulse Pulse Resp 10/02/20 10:22 76 10/02/20 10:21 84 10/02/20 10:18 87 10/02/20 07:00 99.1 F 81 18 10/02/20 02:00 98.3 F 70 17 10/01/20 22:10 98.8 F 77 18 10/01/20 21:50 98.7 F 82 18 10/01/20 20:24 100.4 F H 91 18 10/01/20 18:48 103.2 F H 108 H 18 10/01/20 18:21 99.8 F H 109 H 18 BP BP BP BP BP Pulse Ox 10/02/20 10:22 111/69 94 L 10/02/20 10:21 106/66 94 L 10/02/20 10:18 108/66 92 L 10/02/20 07:00 120/76 98 10/02/20 02:00 100/65 98 10/01/20 22:10 113/67 97 10/01/20 21:50 105/75 95 10/01/20 20:24 122/79 95 10/01/20 18:48 139/81 92 L 10/01/20 18:21 149/79 96 Intake and Output 10/01/20 10/02/20 10/02/20 22:59 06:59 14:59 Other: Voiding Method Urinal # Voids 2 Weight 108.862 kg GENERAL: The patient is lying in bed and is not in acute distress. HENT: Normocephalic, atraumatic. Supple neck. No nuchal rigidity. CHEST: The heart rate is regular rate rhythm. No murmurs to auscultation. No carotid bruit bilaterally. LUNG: Clear to auscultation bilaterally no wheezing noted throughout. Not labored breathing. ABDOMEN/GI: Bowel sounds present in all 4 quadrants. No tenderness to palpation throughout. NEUROLOGICAL: Higher mental function: The patient is awake, alert, oriented to self, place and time. Patient is following commands. No aphasia and no neglect. Cranial nerves: The pupils are round, equal and reactive to light and accommodation. Visual pollard are full to confrontation throughout. Extraocular movement is intact no nystagmus is noted. Facial sensation is normal to touch throughout. The facial strength is normal throughout. Hearing is normal bilaterally to hand rub. Tongue is midline and moved [id number] without any difficulty. No dysarthria is noted. Shoulder shrug is normal bilaterally. Motor: Gait is normal walk with arm swings but upon turning I felt he was slightly unsteady not making a careful turn (per daughter baseline). The strength is 5 over 5 throughout. Normal tone and bulk. Cerebellum: Normal finger to nose heel to shah bilaterally. Sensation: Sensation is decreased from knees down and from bilateral wrist down (chronic). . Reflexes (right/left): 1+ throughout upper and lowers are 0 bilaterally. Plantars are mute bilaterally. Results - Laboratory Findings CBC and BMP: 10/01/20 18:46 10/01/20 18:46 Abnormal Lab Findings: Abnormal Labs 10/01/20 10/01/20 10/01/20 18:46 18:46 18:46 Neutrophils # 8.1 H Lymphocytes # 0.7 L APTT 21.1 L Glucose Plasma Lactic Acid Eb Calcium AST ALT Urine Ketones Trace H Urine Blood Large H Ur Leukocyte Esterase Large H Urine RBC 110 H Urine WBC 69 H Urine Bacteria Moderate H Urine Mucus Rare H 10/01/20 10/01/20 18:46 18:46 Neutrophils # Lymphocytes # APTT Glucose 134 H Plasma Lactic Acid Be 3.0 H* Calcium 10.6 H AST 72 H ALT 60 H Urine Ketones Urine Blood Ur Leukocyte Esterase Urine RBC Urine WBC Urine Bacteria Urine Mucus Assessment and Plan Assessment: * Altered mental status seems due septic encephalopathy (acute UTI). Also mild component of metabolic (has elevated LFT's). Rule out any intracranial process or acute inflammatory demylination polyneuropathy (GBS) * Acute urinary tract infection * Mild elevated LFT's (AST 72 and ALT 60) * Parkinson's disease * History of Guillain-Clinton syndrome in 2007 with residual numbness. * Diabetes mellitus * Diabetic polyneuropathy * Chronic history lower back pain and had history lumbar surgery (remote0 Plan: I ordered MRI of the brain w and without. Also ordered routine EEG. I will not start the patient on anti-epileptic drug unless there is epileptiform discharges or seizure on the EEG. Patient refused Lumbar puncture. He said beside those work-up he will follow-up with his neurologist as outpatient regarding further management. Ordered TSH, vitamin B-12, folate and HbA1c. 2-D echo was ordered by the primary team. Every 4 hours neuro checks Blood cultures are ordered by the primary team and are pending. Consulted physical therapy and occupation therapy Recommend infection disease team consult because of the patient's underlying infection. Upon discharge, the patient needs to follow-up with his neurologist (Dr. Erica Tamayo) as outpatient within 1-2 weeks. The plan is discussed with the patient and his daughter (Ana Laura) who is at bedside and his nurse. Thank you for the consult. Justin Wade MD Neuro-Hospitalist Time with Patient: Greater than 30
[2020-10-02 12:14] LABS: Glucose,Whole Blood 131 mg/dL (75-99)
[2020-10-02] MEDS: ACETAMINOPHEN TAB 325 MG TAB PO PRN ×2 (13:03→18:29)
[2020-10-02] MEDS: INSULIN ASPART (NovoLOG) 100 UNIT/ML VIAL SQ SCH ×3 (13:39→21:16)
[2020-10-02 17:16] LABS: Glucose,Whole Blood 213 mg/dL (75-99)
[2020-10-02 20:23] LABS: Glucose,Whole Blood 171 mg/dL (75-99)
--- NOTE | 2020-10-02 21:06 | EEG ---
ELECTROENCEPHALOGRAM REPORT DATE OF SERVICE: 10/02/2020 This is a 70-year-old gentleman with episode of confusion. The video EEG is obtained to evaluate for seizure and epileptiform activity. RELEVANT MEDICATION: The patient is not on any antiepileptic drugs. EEG TYPE: Routine 21 channel EEG is performed with video using the 10/20 electrode placement system. DESCRIPTION: Wakefulness and drowsiness are obtained. During wakefulness there is a posterior dominant rhythm of low to moderate amplitude, well modulated, well sustained of 8.5-9 hertz activity. During drowsiness there is slowing attenuation of the background activity. There is no physiological stage 2 sleep architecture. There is no focal slowing. Interictal and ictal are none. ACTIVATION PROCEDURE: Photic stimulation did not evoke a posterior driving response. Hyperventilation is not performed. CLINICAL INTERPRETATION: This is a normal routine EEG. There are no focal slowing, epileptiform discharge or seizure on the EEG. Clinical correlation is recommended. JOSHUA / KELL: [id number] / [id number]
[2020-10-02] MEDS: HEPARIN SODIUM,PORCINE/PF 5,000 UNIT/0.5 ML SYRINGE SQ SCH ×2 (21:15→21:41)
[2020-10-02 21:19] LABS: Folate, Serum >24.0 ng/mL
[2020-10-02 21:24] LABS: Hemoglobin A1C 7.2 % (4.0-6.0)
[2020-10-03] MEDS: LEVOTHYROXINE 75 MCG TAB PO SCH (05:57)
[2020-10-03 07:18] LABS: Glucose,Whole Blood 129 mg/dL (75-99)
[2020-10-03] MEDS: INSULIN ASPART (NovoLOG) 100 UNIT/ML VIAL SQ SCH ×4 (08:09→21:45)
[2020-10-03] MEDS: MULTIVITAMINS, THERA 1 EACH TAB PO SCH (08:10)
[2020-10-03] MEDS: CARBIDOPA-LEVODOPA 25-100 MG 1 EACH TAB PO SCH ×3 (08:11→21:55)
[2020-10-03] MEDS: TAMSULOSIN 0.4 MG CAP.ER.24H PO SCH (08:11)
[2020-10-03] MEDS: PREGABALIN 75 MG CAP PO SCH ×3 (08:11→21:45)
[2020-10-03] MEDS: ASPIRIN 81 MG PO SCH (08:12)
[2020-10-03] MEDS: HEPARIN SODIUM,PORCINE/PF 5,000 UNIT/0.5 ML SYRINGE SQ SCH ×2 (08:13→21:45)
[2020-10-03] MEDS ORDERED: LORazepam 2 MG/ML INJ IV STA (08:26)
[2020-10-03 08:43] LABS: HCT 39.4 % (39.0-53.0); HGB 13.1 gm/dL (13.0-17.5); MCH 30.4 pg (25.0-35.0); MCHC 33.3 g/dL (31.0-37.0); MCV 91.4 fL (80.0-100.0); Mean Platelet Volume 8.1; Platelet Count 138 k/uL (150-450); RBC 4.32 m/uL (4.30-5.90); RDW 14.5 % (11.5-15.5); WBC 4.3 k/uL (3.8-10.6)
[2020-10-03 09:06] LABS: ALT 23 U/L (4-49); AST 53 U/L (17-59); African American GFR (CKD) >90 (>60 ml/min/1.73 sqM); Albumin 3.1 g/dL (3.5-5.0); Albumin/Globulin Ratio 1.1; Alkaline Phosphatase 54 U/L (38-126); Anion Gap 7 mmol/L; Blood Urea Nitrogen 12 mg/dL (9-20); Calcium 9.3 mg/dL (8.4-10.2); Carbon Dioxide 23 mmol/L (22-30); Chloride 107 mmol/L (98-107); Globulin 2.9 g/dL; Glucose 134 mg/dL (74-99); Non-African American GFR(CKD) >90 (>60 ml/min/1.73 sqM); Potassium 4.2 mmol/L (3.5-5.1); Sodium 137 mmol/L (137-145); Total Bilirubin 0.4 mg/dL (0.2-1.3)
--- NOTE | 2020-10-03 11:16 | MR ---
EXAMINATION TYPE: MR brain wo/w con DATE OF EXAM: 10/03/2020 COMPARISON: CT brain 2 days ago. MRI brain September 16, 2019 HISTORY: Altered mental status, headache. TECHNIQUE: Multiplanar, multisequence images of the brain and brainstem is performed without and with IV contras t, utilizing 11 mL intravenous Gadavist . FINDINGS: Diffusion weighted images demonstrate no evidence of a recent infarct or other diffusion ab normality. There is no extra-axial fluid collection or significant white matter signal abnormality. The ventricular system and cisternal spaces are stable in size and appearance. The brain volume is age appropriate. Midline structures demonstrate normal morphology. The craniocervical junction appears within normal limits. Post contrast images demonstrate no abnormal enhancement. The dural venous sinuses appear pa tent. The visualized sinuses are clear and the globes are intact. IMPRESSION: Fairly unremarkable study. No significant change from prior MRI.
--- NOTE | 2020-10-03 11:26 | P.PN ---
Subjective Progress Note Date: 10/03/20 HISTORY OF PRESENT ILLNESS This is a 70-year-old male patient of Dr. Pennington with past medical history of diabetes mellitus type 2, diabetic poly-neuropathy, Guillain-Hoffman syndrome in 2007, Parkinson's, hypothyroidism, chronic back pain with lumbar surgery approximately 25 years ago. He denies history of stroke. Patient has had ongoing problems with weakness and degenerative disc disease [facility]. The patient has chronic tremor secondary to Parkinson's but he does go to the gym 4 times per week and is able to walk on a treadmill at 1.8 miles per hour. He does not use a cane or walker. Patient states that he was confused yesterday afternoon which occurred around 4 or 5 PM. Family past on the patient was feeling dizzy falling a lot and had a fall prior to coming into the hospital. Patient apparently was confused and unable to answer questions appropriately. Patient presented to [facility] emergency center with temperature max of 103.2, heart rate 109, blood pressure 149/79 and pulse ox 96%. EKG was sinus tachycardia with no acute ST changes. CBC was normal. Electrolytes and renal function within normal limits. Blood sugar 134. INR 1.0. Urinalysis clear, blood large, leukoesterase large, WBC 69, RBCs 110, bacteria moderate. Lactic acid 3.0. Calcium 10.6, total bilirubin 0.6, AST 72, ALT 60, apply phosphatase 87. Albumin 4.3. Coronavirus PCR not detected. Chest x-ray shows no acute cardio pulmonary process. CT of the brain revealed no acute intracranial hemorrhage, mass effect or midline shift. Mildly prominent ventricular system slightly out of proportion for the sulci which has progressed compared to prior. Findings may be related to central atrophy how ever recommend clinical correlation for normal pressure hydrocephalus. Patient admitted to the MedSurg floor and started on ceftriaxone and IV fluids, consult with neurology added. 10/03: Temperature max 100.2, heart rate 69, blood pressure 125/76, pulse ox 95% on room air. Capillary blood glucose running between 129 and 213. Hemoglobin A1c 7.2. Vitamin B12 270. Folate greater than 24. TSH 1.450. Repeat blood work reveals WBC 4.3, hemoglobin 13.1, platelet count 138. Electrolytes are normal. Creatinine 0.81. Urine culture is gram-negative bacilli. The patient states that this first time he's been out of bed. Patient seen sitting up in a chair. He does complain of dysuria. Patient has been seen by neurology for altered mental status due to septic encephalopathy with component of metabolic with elevated liver function tests. MRI of the brain with and without contrast has been ordered. Echocardiogram reveals EF of 55-60% with moderate concentric left ventricle hypertrophy, mild mitral regurgitation, mild tricuspid regurgitation. EEG was normal. REVIEW OF SYSTEMS Constitutional: Noted fever, no chills, no night sweats. No weight change. No weakness, fatigue or lethargy. No daytime sleepiness. EENT: No headache. No blurred vision or double vision, no loss of vision. No loss of Hearing, no ringing in the ears, no dizziness. No nasal drainage or congestion. No epistaxis. No sore throat. Lungs: No shortness of breath, cough, no sputum production. No wheezing. Cardiovascular: No chest pain, no lower extremity edema. No palpitations. No paroxysmal nocturnal dyspnea. No orthopnea. Reported dizziness. No syncopal episodes. Abdominal: No abdominal pain. No nausea, vomiting. No diarrhea. No constipation. No bloody or tarry stools.. No loss of appetite. Genitourinary: No dysuria, increased frequency, urgency. No urinary retention. Musculoskeletal: No myalgias. No muscle weakness, reported gait dysfunction, reported frequent falls. Reported chronic back pain. Reported chronic neck pain. Integumentary: No wounds, no lesions. No rash or pruritus. No unusual bruising. No change in hair or nails. Neurologic: No aphasia. No facial droop. Reported change in mentation with confusion. No head injury. No headache. No paralysis. No paresthesia. Psychiatric: No depression. No anxiety. No mood swings. Endocrine: No abnormal blood sugars. No weight change. No excessive sweating or thirst. No cold intolerance. PHYSICAL EXAMINATION Gen: This is a 70-year-old male patient, resting in bed and appears to be comfortable and in no acute distress. HEENT: Head is atraumatic, normocephalic. Pupils equal, round. Sclerae is anicteric. NECK: Supple. No JVD. No lymphadenopathy. No thyromegaly. LUNGS: Clear to auscultation. No wheezes or rhonchi. No intercostal retractions. HEART: Regular rate and rhythm. No murmur. ABDOMEN: Soft. Bowel sounds are present. No masses. No tenderness. EXTREMITIES: No pedal edema. No calf tenderness. Chronic numbness to the anterior pretibial areas residual from Guillain-[place] syndrome. NEUROLOGICAL: Patient is awake, alert and oriented x3. Cranial nerves 2 through 12 are grossly intact. Tremor noted. ASSESSMENT AND PLAN 1. Sepsis secondary to acute urinary tract infection. Continue ceftriaxone 2 g IV piggyback daily. Monitor urine culture and blood cultures. 2. Lactic acidosis secondary to sepsis. Patient is status post 2-1/2 L of IV fluids. Hold metformin. 3. Infectious metabolic encephalopathy and rule out and rule out normal pressure hydrocephalus . Continue treatment and #1. Neurology consult. 4. Frequent falls possibly related to worsening Parkinson's, exacerbated by sepsis. PT and OT. 5. Diabetes mellitus type 2. Holed metformin 1000 mg twice daily, continue NovoLog scale before meals and at bedtime. 6. Diabetic polyneuropathy. Continue Lyrica 150 mg 3 times daily. 7. Parkinson's. Continue Sinemet 251 101-1/2 3 times daily. 8 Hypothyroidism. Continue levothyroxine 150 Scott grams daily. 9. Guillain-[place] syndrome in 2007. 10. Benign prostatic hypertrophy. Continue Flomax or 0.4 mg daily. 11. GI prophylaxis. Protonix. 12. DVT prophylaxis. Heparin subcu. Patient will be admitted to the hospital for a minimum of 2 night stay. DISCHARGE PLAN Home, to be determined. PT and OT consults. Impression and plan of care have been directed as dictated by the signing physician. Sophie Hitchcock nurse practitioner acting as scribe for signing physician. Objective - Vital Signs Vital signs: Vital Signs Temp 98.4 F 10/03/20 07:00 Pulse 69 10/03/20 07:00 Resp 16 10/03/20 07:00 BP 125/76 10/03/20 07:00 Pulse Ox 95 10/03/20 07:00 Intake & Output 10/02/20 10/03/20 10/03/20 18:59 06:59 18:59 Intake Total 550 Output Total 850 Balance -300 Intake: Oral 550 Output: Urine 850 Other: Voiding Method Urinal # Voids 3 1 - Labs CBC & Chem 7: 10/03/20 08:02 10/03/20 08:02 Labs: Abnormal Lab Results - Last 24 Hours (Table) 10/02/20 10/02/20 10/02/20 Range/Units 12:13 12:52 17:15 POC Glucose (mg/dL) 131 H 213 H (75-99) mg/dL Hemoglobin A1c 7.2 H (4.0-6.0) % 10/02/20 10/03/20 Range/Units 20:22 07:04 POC Glucose (mg/dL) 171 H 129 H (75-99) mg/dL Hemoglobin A1c (4.0-6.0) % Microbiology - Last 24 Hours (Table) 10/01/20 19:29 Blood Culture - Preliminary Blood No Growth after 24 hours 10/01/20 19:29 Blood Culture - Preliminary Blood No Growth after 24 hours 10/01/20 18:46 Urine Culture - Preliminary Urine,Voided
[2020-10-03 11:40] LABS: Glucose,Whole Blood 187 mg/dL (75-99)
[2020-10-03] MEDS ORDERED: CYANOCOBALAMIN 1,000 MCG/ML 1 ML VIAL IM STA (16:46)
--- NOTE | 2020-10-03 16:48 | P.PN ---
Subjective Progress Note Date: 10/03/20 Ration seen at bedside and he stated that he's doing well. He denies of any weakness, numbness, visual disturbance, difficulty getting his words out that. He feels neurologically back to baseline. Objective - Vital Signs Vital signs: Vital Signs Temp 97.9 F 10/03/20 13:55 Pulse 70 10/03/20 13:55 Resp 14 10/03/20 13:55 BP 113/67 10/03/20 13:55 Pulse Ox 97 10/03/20 13:55 Intake & Output 10/02/20 10/03/20 10/03/20 18:59 06:59 18:59 Intake Total 550 Output Total 850 Balance -300 Intake: Oral 550 Output: Urine 850 Other: Voiding Method Urinal Urinal # Voids 3 1 4 # Bowel Movements 0 - Exam GENERAL: The patient is lying in bed and is not in acute distress. HENT: Normocephalic, atraumatic. Supple neck. No nuchal rigidity. NEUROLOGICAL: Higher mental function: The patient is awake, alert, oriented to self, place and time. Patient is following commands. No aphasia and no neglect. Cranial nerves: The pupils are round, equal and reactive to light and accommodation. Visual pollard are full to confrontation throughout. Extraocular movement is intact no nystagmus is noted. Facial sensation is normal to touch throughout. The facial strength is normal throughout. Hearing is normal bilate rally to hand rub. Tongue is midline and moved [id number] without any difficulty. No dysarthria is noted. Shoulder shrug is normal bilaterally. Motor: Gait is deferred. The strength is 5 over 5 throughout. Normal tone and bulk. Cerebellum: Normal finger to nose heel to shah bilaterally. Sensation: Sensation is decreased from knees down and from bilateral wrist down (chronic). . Reflexes (right/left): 1+ throughout upper and lowers are 0 bilaterally. Plantars are mute bilaterally. WORK-UP: CT of the head is reported as no acute intracranial hemorrhage, mass effect or midline shift. Mildly prominent ventricular system slightly out of proportion for the sulci which has a progressed compared to prior. Finding may relate to central atrophy the; however recommend clinical correlation for normal pressure hydrocephalus. Chest x-rays reported as no acute cardiopulmonary process. Initial white blood cell is 9.3 thousand which is considered within normal limits. Chemistry panel was significant as a plasma lactic acid vein is 3.0 which is elevated, the glucose is 134 which is elevated but not too significant. AST of 72 and ALT of 60 which is elevated. Calcium is 10.6 which is elevated that. Urinalysis suggestive of UTI. Routine EEG on 10/02/2020: Normal. There are no focal slowing, epileptiform discharges or seizure in the EEG. MR the brain is reported as fairly unremarkable study. No significant change from prior MRI. Hemoglobin A1c is 7.2 which is elevated. Vitamin B12 is 270 which is considered normal but very low normal. Folate is more than 24 which is considered within normal limits. TSH is 1.45 which is considered within normal limits - Labs CBC & Chem 7: 10/03/20 08:02 10/03/20 08:02 Labs: Abnormal Lab Results - Last 24 Hours (Table) 10/02/20 10/02/20 10/02/20 Range/Units 12:52 12:52 17:15 Plt Count (150-450) k/uL Glucose (74-99) mg/dL POC Glucose (mg/dL) 213 H (75-99) mg/dL Hemoglobin A1c 7.2 H (4.0-6.0) % Total Protein (6.3-8.2) g/dL Albumin (3.5-5.0) g/dL RBC Folate 1,060 H (280 - 791) ng/mL 10/02/20 10/03/20 10/03/20 Range/Units 20:22 07:04 08:02 Plt Count 138 L (150-450) k/uL Glucose (74-99) mg/dL POC Glucose (mg/dL) 171 H 129 H (75-99) mg/dL Hemoglobin A1c (4.0-6.0) % Total Protein (6.3-8.2) g/dL Albumin (3.5-5.0) g/dL RBC Folate (280 - 791) ng/mL 10/03/20 10/03/20 Range/Units 08:02 11:35 Plt Count (150-450) k/uL Glucose 134 H (74-99) mg/dL POC Glucose (mg/dL) 187 H (75-99) mg/dL Hemoglobin A1c (4.0-6.0) % Total Protein 6.0 L (6.3-8.2) g/dL Albumin 3.1 L (3.5-5.0) g/dL RBC Folate (280 - 791) ng/mL Microbiology - Last 24 Hours (Table) 10/01/20 18:46 Urine Culture - Preliminary Urine,Voided Gram Neg Bacilli 10/01/20 19:29 Blood Culture - Preliminary Blood No Growth after 24 hours 10/01/20 19:29 Blood Culture - Preliminary Blood No Growth after 24 hours Assessment and Plan Assessment: * Altered mental status seems due septic encephalopathy (acute UTI). Also mild component of metabolic (has elevated LFT's). * Low Vitamin B12 (270) * Acute urinary tract infection * Mild elevated LFT's (AST 72 and ALT 60) * Parkinson's disease * History of Guillain-[place] syndrome in 2007 with residual numbness. * Diabetes mellitus * Diabetic polyneuropathy * Chronic history lower back pain and had history lumbar surgery (remote0 Plan: I gave the patient on vitamin B12 1000 mcg IM once and said to be on vitamin B12 1000 mcg daily. Patient refused Lumbar puncture (since he felt possible same or close symptoms to his prior GBS in the past). Every 4 hours neuro checks Consulted physical therapy and occupation therapy Recommend infection disease team consult because of the patient's underlying infection. Upon discharge, the patient needs to follow-up with his neurologist (Dr. Erica Tamayo) as outpatient within 1-2 weeks. The plan is discussed with the patient and his daughter (Ana Laura) who is at bedside and his nurse. He is clear from neurological perspective. Justin Wade MD Neuro-Hospitalist Time with Patient: Less than 30
[2020-10-03 17:06] LABS: Glucose,Whole Blood 147 mg/dL (75-99)
[2020-10-03 19:54] VITALS: RESP 16
[2020-10-03 20:33] LABS: Glucose,Whole Blood 233 mg/dL (75-99)
[2020-10-04] MEDS: LEVOTHYROXINE 75 MCG TAB PO SCH (06:17)
[2020-10-04] MEDS: ACETAMINOPHEN TAB 325 MG TAB PO PRN (06:20)
[2020-10-04 07:44] LABS: Glucose,Whole Blood 122 mg/dL (75-99)
[2020-10-04 08:24] VITALS: BP 121/80; PULSE 62; TEMP 97.7
[2020-10-04] MEDS: HEPARIN SODIUM,PORCINE/PF 5,000 UNIT/0.5 ML SYRINGE SQ SCH (08:33)
[2020-10-04] MEDS: PREGABALIN 75 MG CAP PO SCH (08:34)
[2020-10-04] MEDS: ASPIRIN 81 MG PO SCH (08:34)
[2020-10-04] MEDS: MULTIVITAMINS, THERA 1 EACH TAB PO SCH (08:35)
[2020-10-04] MEDS: TAMSULOSIN 0.4 MG CAP.ER.24H PO SCH (08:35)
[2020-10-04] MEDS: INSULIN ASPART (NovoLOG) 100 UNIT/ML VIAL SQ SCH (08:39)
[2020-10-04] MEDS ORDERED: CYANOCOBALAMIN 500 MCG TAB PO SCH (09:00)
--- NOTE | 2020-10-04 09:15 | P.DS ---
Providers Date of admission: 10/02/20 08:01 Expected date of discharge: 10/04/20 Attending physician: Adrian Sy MD Consults: 10/02/20 08:56 Consult Physician Routine Consulting Provider: Justin Wade Consult Reason/Comments: encephalopathy, parkinsons Do you want consulting provider notified?: Yes Primary care physician: [facility] Course: HISTORY OF PRESENT ILLNESS This is a 70-year-old male patient of Dr. Pennington with past medical history of diabetes mellitus type 2, diabetic poly-neuropathy, Guillain-Hoffman syndrome in 2007, Parkinson's, hypothyroidism, chronic back pain with lumbar surgery approximately 25 years ago. He denies history of stroke. Patient has had ongoing problems with weakness and degenerative disc disease [facility]. The patient has chronic tremor secondary to Parkinson's but he does go to the gym 4 times per week and is able to walk on a treadmill at 1.8 miles per hour. He does not use a cane or walker. Patient states that he was confused yesterday afternoon which occurred around 4 or 5 PM. Family past on the patient was feeling dizzy falling a lot and had a fall prior to coming into the hospital. Patient apparently was confused and unable to answer questions appropriately. Patient presented to [facility] emergency center with temperature max of 103.2, heart rate 109, blood pressure 149/79 and pulse ox 96%. EKG was sinus tachycardia with no acute ST changes. CBC was normal. Electrolytes and renal function within normal limits. Blood sugar 134. INR 1.0. Urinalysis clear, blood large, leukoesterase large, WBC 69, RBCs 110, bacteria moderate. Lactic acid 3.0. Calcium 10.6, total bilirubin 0.6, AST 72, ALT 60, apply phosphatase 87. Albumin 4.3. Coronavirus PCR not detected. Chest x-ray shows no acute cardio pulmonary process. CT of the brain revealed no acute intracranial hemorrhage, mass effect or midline shift. Mildly prominent ventricular system slightly out of proportion for the sulci which has progressed compared to prior. Findings may be related to central atrophy however recommend clinical correlation for normal pressure hydrocephalus. Patient admitted to the MedSur floor and started on ceftriaxone and IV fluids, consult with neurology added. 10/03: Temperature max 100.2, heart rate 69, blood pressure 125/76, pulse ox 95% on room air. Capillary blood glucose running between 129 and 213. Hemoglobin A1c 7.2. Vitamin B12 270. Folate greater than 24. TSH 1.450. Repeat blood work reveals WBC 4.3, hemoglobin 13.1, platelet count 138. Electrolytes are normal. Creatinine 0.81. Urine culture is gram-negative bacilli. The patient states that this first time he's been out of bed. Patient seen sitting up in a chair. He does complain of dysuria. Patient has been seen by neurology for altered mental status due to septic encephalopathy with component of metabolic with elevated liver function tests. MRI of the brain with and without contrast has been ordered. Echocardiogram reveals EF of 55-60% with moderate concentric left ventricle hypertrophy, mild mitral regurgitation, mild tricuspid regurgitation. EEG was normal. 10/04: She was seen yesterday by neurology and cleared for discharge. His urine culture remains pending. He has been afebrile, heart rate 62, blood pressure 121/80, pulse ox 96% on room air. Patient is very anxious to be discharged home and is being discharged on Cipro until culture is been completed. ASSESSMENT AND PLAN 1. Sepsis secondary to acute urinary tract infection. 2. Lactic acidosis secondary to sepsis. 3. Infectious metabolic encephalopathy and rule out and rule out normal pressure hydrocephalus. 4. Frequent falls possibly related to worsening Parkinson's, exacerbated by sepsis, back to baseline. 5. Diabetes mellitus type 2. 6. Diabetic polyneuropathy. 7. Parkinson's. 8 Hypothyroidism. 9. Guillain-[place] syndrome in 2007. 10. Benign prostatic hypertrophy. DISCHARGE PLAN Home. Impression and plan of care have been directed as dictated by the signing physician. Sophie Hitchcock nurse practitioner acting as scribe for signing physician. Patient Condition at Discharge: Good Plan - Discharge Summary Discharge Rx Participant: Yes New Discharge Prescriptions: New Cyanocobalamin [Vitamin B-12] 1,000 mcg PO DAILY tab Ciprofloxacin HCl [Cipro] 500 mg PO BID 12 Days #24 tab Continue Tamsulosin HCl [Flomax] 0.4 mg PO DAILY Pregabalin [Lyrica] 150 mg PO TID Multivitamins, Thera [Multivitamin (formulary)] 1 tab PO DAILY Aspirin EC [Ecotrin Low Dose] 81 mg PO DAILY metFORMIN HCL [Glucophage] 1,000 mg PO BID Levothyroxine Sodium [Synthroid] 150 mcg PO DAILY Carbidopa-Levodopa 25-100 mg [Sinemet 25-100 mg] 1.5 tab PO TID Discharge Medication List Aspirin EC [Ecotrin Low Dose] 81 mg PO DAILY 10/01/20 [History] Carbidopa-Levodopa 25-100 mg [Sinemet 25-100 mg] 1.5 tab PO TID 10/01/20 [History] Levothyroxine Sodium [Synthroid] 150 mcg PO DAILY 10/01/20 [History] Multivitamins, Thera [Multivitamin (formulary)] 1 tab PO DAILY 10/01/20 [History] Pregabalin [Lyrica] 150 mg PO TID 10/01/20 [History] Tamsulosin HCl [Flomax] 0.4 mg PO DAILY 10/01/20 [History] metFORMIN HCL [Glucophage] 1,000 mg PO BID 10/01/20 [History] Ciprofloxacin HCl [Cipro] 500 mg PO BID 12 Days #24 tab 10/04/20 [Rx] Cyanocobalamin [Vitamin B-12] 1,000 mcg PO DAILY tab 10/04/20 [Rx] Follow up Appointment(s)/Referral(s): Erica Concepcion DO [REFERRING] - 10/24/20 8:15 am Guru Pennington MD [Primary Care Provider] - 10/11/20 9:30 am Patient Instructions/Handouts: Urinary Tract Infection in Men (DC) Discharge Disposition: HOME SELF-CARE
[2020-10-04] MEDS: CARBIDOPA-LEVODOPA 25-100 MG 1 EACH TAB PO SCH (09:27)
== END 2020-10-04 10:28 | disposition home or self-care (01) | DRG 871 ==
LOC: EC 18:20 → 6NMEDSUR 21:13 → OBSVTOIN 10-02 08:01 → 6NMEDSUR 10-02 23:56
PROVIDERS: ADMIT Internal Medicine; ATTEND Internal Medicine
DX: A41.9 Sepsis, unspecified organism (principal); G93.41 Metabolic encephalopathy; G61.0 Guillain-Barre syndrome; N39.0 Urinary tract infection, site not specified; E87.2 Acidosis; G20 Parkinson's disease; E11.42 Type 2 diabetes mellitus with diabetic polyneuropathy; R29.6 Repeated falls; Z20.822 Contact with and (suspected) exposure to COVID-19; E03.9 Hypothyroidism, unspecified; N40.0 Benign prostatic hyperplasia without lower urinary tract symptoms; Z79.82 Long term (current) use of aspirin; Z79.84 Long term (current) use of oral hypoglycemic drugs; Z79.890 Hormone replacement therapy; G89.29 Other chronic pain; M54.9 Dorsalgia, unspecified; I51.7 Cardiomegaly; Z79.899 Other long term (current) drug therapy
CPT/HCPCS: 36415; 70450; 70553; 71046; 76700; 80053; 81001; 82607; 82746; 82747; 83036; 83605; 84443; 85025; 85027; 85610; 85730; 87040; 87077; 87086; 87186; 87635; 93005; 93306; 95819; 96360; 96361; 96365; 99285

== ENCOUNTER 2021-03-21 12:31 | Inpatient (IN) | payer MEDICARE, OTHER ==
[2021-03-21] MEDS ORDERED: SODIUM CHLORIDE 0.9% 1,000 ML IV STA (13:00)
--- NOTE | 2021-03-21 13:15 | ED ---
Upper Extremity HPI - General Chief Complaint: Extremity Injury, Upper Stated Complaint: fall Time Seen by Provider: 03/21/21 12:35 Source: patient Mode of arrival: ambulatory Limitations: no limitations - History of Present Illness Initial Comments: 70-year-old male past history of Parkinson's presents emergency department after he had a fall and was pinned in between his bed and nightstand. Patient reports that he was watching football on Friday night. He was playing in his bed. He fell asleep, when he awoke he had rolled over onto his side. His right arm was flexed at the elbow and pinned behind his back. The patient's weight was on top of the extremity. Patient was suspended in the air in between the bed and the nightstand. He was unable to move himself from this position. Family had not heard from him in a couple of days therefore they went to his house this afternoon. They're unable to get into the front door and therefore police were called. They found the patient alert and released him from the position. He denies that he passed out or had any chest pain or headache previous to the episode. Denies that he was drinking. Patient arrives with complete paralysis of the right hand. Hand is ecchymotic. Has no sensation from the mid arm to the fingers. This is his dominant hand. He had been given 50 of fentanyl by Estefani MORGAN. Reports his pain is controlled at this time. He denies any headaches or visual changes. No chest pain or shortness of breath. No pain in his neck, back or lower extremities. No paralysis in his legs. 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 - Related Data Home Medications Medication Instructions Recorded Confirmed Aspirin EC [Ecotrin Low Dose] 81 mg PO DAILY 10/01/20 03/21/21 Carbidopa-Levodopa 25-100 mg 1.5 tab PO TID 10/01/20 03/21/21 [Sinemet 25-100 mg] Levothyroxine Sodium [Synthroid] 150 mcg PO DAILY 10/01/20 03/21/21 Multivitamins, Thera [Multivitamin 1 tab PO DAILY 10/01/20 03/21/21 (formulary)] Tamsulosin HCl [Flomax] 0.4 mg PO DAILY 10/01/20 03/21/21 Previous Rx's Medication Instructions Recorded ALPRAZolam [Xanax] 0.25 mg PO TID PRN #9 tab 04/03/21 Ascorbic Acid [Vitamin C] 1,000 mg PO DAILY tab 04/03/21 Calcium Carbonate [Tums] 500 mg PO TID 04/03/21 Cephalexin [Keflex] 250 mg PO Q6HR #20 cap 04/03/21 Cyanocobalamin [Vitamin B-12] 1,000 mcg PO DAILY tab 04/03/21 Ergocalciferol [Vitamin D2 (1250 1,250 mcg PO Q7D capsule 04/03/21 Mcg = 70487 Iu)] HYDROcodone/APAP 5-325MG [[place] 1 each PO Q6HR PRN #12 tab 04/03/21 5-325] INSULIN ASPART (NovoLOG) [NovoLOG 0 unit SQ ACHS ml 04/03/21 (formulary)] Insulin Detemir (Levemir) [Levemir] 15 unit SQ HS ml 04/03/21 Pregabalin [Lyrica] 150 mg PO TID #9 cap 04/03/21 Sennosides-Docusate Sodium 2 each PO HS PRN tab 04/03/21 [Senokot-S] Sodium Bicarbonate Tab 1,300 mg PO BID tab 04/03/21 Zinc Sulfate [Orazinc] 220 mg PO DAILY cap 04/03/21 Allergies Allergy/AdvReac Type Severity Reaction Status Date / Time Sulfa (Sulfonamide Allergy Unknown Verified 03/21/21 15:47 Antibiotics) Review of Systems ROS Statement: Those systems with pertinent positive or pertinent negative responses have been documented in the HPI. ROS Other: All systems not noted in ROS Statement are negative. Past Medical History Past Medical History: Diabetes Mellitus Additional Past Medical History / Comment(s): guillian-barre syndrome, parkinsons, rt. shoulder rotator cuff repair, lasic eye surgery, L4-L5 laporoscopy History of Any Multi-Drug Resistant Organisms: None Reported Past Surgical History: Back Surgery Past Psychological History: No Psychological Hx Reported Smoking Status: Never smoker Past Alcohol Use History: None Reported Past Drug Use History: None Reported General Exam Limitations: no limitations General appearance: alert, in no apparent distress Head exam: Present: atraumatic, normocephalic, normal inspection Eye exam: Present: normal appearance, PERRL, EOMI. Absent: scleral icterus, conjunctival injection, periorbital swelling ENT exam: Present: normal exam, mucous membranes moist Neck exam: Present: normal inspection. Absent: tenderness, meningismus, lymphadenopathy Respiratory exam: Present: normal lung sounds bilaterally, chest wall tenderness (ecchymosis over left chest wall with pressure abrasions). Absent: respiratory distress, wheezes, rales, rhonchi, stridor Cardiovascular Exam: Present: regular rate, normal rhythm, normal heart sounds. Absent: systolic murmur, diastolic murmur, rubs, gallop, clicks GI/Abdominal exam: Present: soft, normal bowel sounds. Absent: distended, tenderness, guarding, rebound, rigid Extremities exam: Present: other (right hand ecchymotic with pitting edema extending up to elbow. All fingers contracted into a loose fist. Patient unable to open hand, flex/extend at the wrist or elbow. No sensation in any nerve distribution below the shoulder. bounding radial pulse ). Absent: pedal edema Back exam: Present: normal inspection Neurological exam: Present: alert, oriented X3, CN II-XII intact Psychiatric exam: Present: normal affect, normal mood Skin exam: Present: warm, dry, other (ecchymosis right elbow to wrist. ). Absent: rash Course Vital Signs 03/21/21 03/21/21 03/21/21 12:36 14:48 15:10 Temperature 98 F 98.9 F Pulse Rate 74 82 Pulse Rate [ 63 Pulse Oximetery ] Respiratory 18 18 16 Rate Blood Pressure 142/99 147/99 Blood Pressure 174/80 [Left Arm] O2 Sat by Pulse 96 95 97 Oximetry - Reevaluation(s) Reevaluation #1: 03/21/21 13:[address] Paez Reevaluation #2: Spoke with Dr. Gerardo - will come to evaluate the patient 03/21/21 13:21 Reevaluation #3: 03/21/21 13:43 Dr. Paez and Dr. Gerardo has evaluated the patient - will go for fasciotomy with Dr. Paez Reevaluation #4: 03/21/21 14:22 Dr. Sy notified of patients presence Medical Decision Making - Medical Decision Making Upon arrival patient is placed in room 18. Patient evaluated immediately upon EMS arrival. Concern for right upper external compartment syndrome. Laboratory studies are ordered. I did speak with Dr. Paez and Dr. Gerardo who do evaluate the patient in the ER. Dr. Gerardo requests right upper extremity ultrasound. Dr. Paez requests upper extremity x-rays. Studies are performed. Patient remained in stable condition and does have some improvement in his symptoms. Patient taken to OR with Dr. Paez. - Lab Data Result diagrams: 03/31/21 06:27 04/04/21 05:50 Lab Results 03/21/21 03/21/21 03/21/21 Range/Units 13:08 13:08 13:08 WBC 13.9 H (3.8-10.6) k/uL RBC 5.72 (4.30-5.90) m/uL Hgb 17.4 (13.0-17.5) gm/dL Hct 53.6 H (39.0-53.0) % MCV 93.8 (80.0-100.0) fL MCH 30.5 (25.0-35.0) pg MCHC 32.5 (31.0-37.0) g/dL RDW 13.9 (11.5-15.5) % Plt Count 233 (150-450) k/uL MPV 8.8 Neutrophils % 87 % Lymphocytes % 5 % Monocytes % 6 % Eosinophils % 0 % Basophils % 1 % Neutrophils # 12.2 H (1.3-7.7) k/uL Lymphocytes # 0.7 L (1.0-4.8) k/uL Monocytes # 0.9 (0-1.0) k/uL Eosinophils # 0.0 (0-0.7) k/uL Basophils # 0.1 (0-0.2) k/uL PT 11.6 (9.0-12.0) sec INR 1.1 (<1.2) APTT 22.7 (22.0-30.0) sec Sodium 136 L (137-145) mmol/L Potassium 6.1 H* (3.5-5.1) mmol/L Chloride 100 (98-107) mmol/L Carbon Dioxide 19 L (22-30) mmol/L Anion Gap 17 mmol/L BUN 16 (9-20) mg/dL Creatinine 1.35 H (0.66-1.25) mg/dL Est GFR (CKD-EPI)AfAm 61 (>60 ml/min/1.73 sqM) Est GFR (CKD-EPI)NonAf 53 (>60 ml/min/1.73 sqM) Glucose 242 H (74-99) mg/dL Estimated Ave Glu mg/dL Hemoglobin A1c (0.0-6.0) % Lactic Ac Sepsis Rflx Plasma Lactic Acid Be (0.7-2.0) mmol/L Calcium 9.8 (8.4-10.2) mg/dL Magnesium 2.2 (1.6-2.3) mg/dL Total Bilirubin 0.7 (0.2-1.3) mg/dL AST 660 H (17-59) U/L ALT 259 H (4-49) U/L Alkaline Phosphatase 80 (38-126) U/L Creatine Kinase 44994 H* (55-170) U/L Troponin I (0.000-0.034) ng/mL Total Protein 8.0 (6.3-8.2) g/dL Albumin 4.5 (3.5-5.0) g/dL 03/21/21 03/21/21 03/21/21 Range/Units 13:08 13:08 13:08 WBC (3.8-10.6) k/uL RBC (4.30-5.90) m/uL Hgb (13.0-17.5) gm/dL Hct (39.0-53.0) % MCV (80.0-100.0) fL MCH (25.0-35.0) pg MCHC (31.0-37.0) g/dL RDW (11.5-15.5) % Plt Count (150-450) k/uL MPV Neutrophils % % Lymphocytes % % Monocytes % % Eosinophils % % Basophils % % Neutrophils # (1.3-7.7) k/uL Lymphocytes # (1.0-4.8) k/uL Monocytes # (0-1.0) k/uL Eosinophils # (0-0.7) k/uL Basophils # (0-0.2) k/uL PT (9.0-12.0) sec INR (<1.2) APTT (22.0-30.0) sec Sodium (137-145) mmol/L Potassium (3.5-5.1) mmol/L Chloride (98-107) mmol/L Carbon Dioxide (22-30) mmol/L Anion Gap mmol/L BUN (9-20) mg/dL Creatinine (0.66-1.25) mg/dL Est GFR (CKD-EPI)AfAm (>60 ml/min/1.73 sqM) Est GFR (CKD-EPI)NonAf (>60 ml/min/1.73 sqM) Glucose (74-99) mg/dL Estimated Ave Glu mg/dL 191 Hemoglobin A1c 8.3 H (0.0-6.0) % Lactic Ac Sepsis Rflx Plasma Lactic Acid Be 7.1 H* (0.7-2.0) mmol/L Calcium (8.4-10.2) mg/dL Magnesium (1.6-2.3) mg/dL Total Bilirubin (0.2-1.3) mg/dL AST (17-59) U/L ALT (4-49) U/L Alkaline Phosphatase (38-126) U/L Creatine Kinase (55-170) U/L Troponin I 0.013 (0.000-0.034) ng/mL Total Protein (6.3-8.2) g/dL Albumin (3.5-5.0) g/dL 03/21/21 Range/Units 13:38 WBC (3.8-10.6) k/uL RBC (4.30-5.90) m/uL Hgb (13.0-17.5) gm/dL Hct (39.0-53.0) % MCV (80.0-100.0) fL MCH (25.0-35.0) pg MCHC (31.0-37.0) g/dL RDW (11.5-15.5) % Plt Count (150-450) k/uL MPV Neutrophils % % Lymphocytes % % Monocytes % % Eosinophils % % Basophils % % Neutrophils # (1.3-7.7) k/uL Lymphocytes # (1.0-4.8) k/uL Monocytes # (0-1.0) k/uL Eosinophils # (0-0.7) k/uL Basophils # (0-0.2) k/uL PT (9.0-12.0) sec INR (<1.2) APTT (22.0-30.0) sec Sodium (137-145) mmol/L Potassium (3.5-5.1) mmol/L Chloride (98-107) mmol/L Carbon Dioxide (22-30) mmol/L Anion Gap mmol/L BUN (9-20) mg/dL Creatinine (0.66-1.25) mg/dL Est GFR (CKD-EPI)AfAm (>60 ml/min/1.73 sqM) Est GFR (CKD-EPI)NonAf (>60 ml/min/1.73 sqM) Glucose (74-99) mg/dL Estimated Ave Glu mg/dL Hemoglobin A1c (0.0-6.0) % Lactic Ac Sepsis Rflx Y Plasma Lactic Acid Be (0.7-2.0) mmol/L Calcium (8.4-10.2) mg/dL Magnesium (1.6-2.3) mg/dL Total Bilirubin (0.2-1.3) mg/dL AST (17-59) U/L ALT (4-49) U/L Alkaline Phosphatase (38-126) U/L Creatine Kinase (55-170) U/L Troponin I (0.000-0.034) ng/mL Total Protein (6.3-8.2) g/dL Albumin (3.5-5.0) g/dL - EKG Data EKG Comments: EKG demonstrates normal sinus rhythm with a ventricular rate of 79. MI interval 158. QRS 98. QTC 426. Biphasic T waves in V4 through V6. Inverted T-wave in 1 and aVL Critical Care Time Critical Care Time: Yes Critical Care Time: 45 minutes for consultation with multiple surgeons, diagnosis of compartment syndrome and transfer to the OR for limb sparing procedure Disposition Clinical Impression: Fall, Compression neuropathy of right upper extremity, Compartment syndrome of right upper extremity, MINI (acute kidney injury), Lactic acidosis, Hyperkalemia Disposition: ADMITTED IP TO THIS [facility] Condition: Stable Is patient prescribed a controlled substance at d/c from ED?: No Decision to Admit Reason: Admit from EC Decision Date: 03/21/21 Decision Time: 14:15
[2021-03-21 13:22] LABS: Basophils # (A) 0.1 k/uL (0-0.2); Basophils % (A) 1 %; Eosinophils % (A) 0 %; HCT 53.6 % (39.0-53.0); HGB 17.4 gm/dL (13.0-17.5); Lymphocytes # (A) 0.7 k/uL (1.0-4.8); Lymphocytes % (A) 5 %; MCH 30.5 pg (25.0-35.0); MCHC 32.5 g/dL (31.0-37.0); MCV 93.8 fL (80.0-100.0); Mean Platelet Volume 8.8; Monocytes # (A) 0.9 k/uL (0-1.0); Monocytes % (A) 6 %; Neutrophils # (A) 12.2 k/uL (1.3-7.7); Neutrophils % (A) 87 %; Platelet Count 233 k/uL (150-450); RBC 5.72 m/uL (4.30-5.90); RDW 13.9 % (11.5-15.5); WBC 13.9 k/uL (3.8-10.6)
[2021-03-21 13:33] LABS: Albumin 4.5 g/dL (3.5-5.0); Calcium 9.8 mg/dL (8.4-10.2); Magnesium 2.2 mg/dL (1.6-2.3); Total Bilirubin 0.7 mg/dL (0.2-1.3)
[2021-03-21 13:39] LABS: INR 1.1 (<1.2); Partial Thromboplastin Time 22.7 sec (22.0-30.0); Prothrombin Time 11.6 sec (9.0-12.0)
[2021-03-21 13:45] LABS: Potassium 6.1 mmol/L (3.5-5.1)
[2021-03-21] MEDS ORDERED: INSULIN REGULAR 100 UNIT/ML VIAL (IV) IV ONE (13:46)
[2021-03-21] MEDS ORDERED: SODIUM CHLORIDE 0.9% 1,000 ML IV ONE (13:48)
--- NOTE | 2021-03-21 14:03 | CT ---
EXAMINATION TYPE: CT brain cspine wo con DATE OF EXAM: 03/21/2021 COMPARISON: 10/01/2020 HISTORY: R arm paralysis CT DLP: 1713.4 mGycm Automated exposure control for dose reduction was used. TECHNIQUE: CT scan of the head and cervical spine are performed without contrast. FINDINGS: Moderate generalized degenerative change of the greater central component. Low-attenuatio n in the white matter is not cystic. No acute hemorrhage or mass effect. Right internal carotid arter y somewhat hyperdense. Recommend CTA mecho[place]da of [place] to exclude internal thrombus. Calvarium intact. Orbits are symmetric. Multilevel hypertrophic and degenerative change of the spine compatible severe multilevel degenerativ e disc disease and facet arthropathy. Suspect multilevel foraminal encroachment and canal stenosis. Assessment spinal canal nondiagnostic due to artifact and resolution. Incidental note made of a 7 mm soft tissue nodule posterior subcutaneous tissues on the right proxima l level C5-C6 which is indeterminate due to size. Odontoid intact. No definite acute fracture. Multilevel uncovertebral joint hypertrophy and facet art hropathy noted. IMPRESSION: 1. Right ICA is somewhat hyperdense would recommend CTA of the mecho[place]da of [place] to exclude internal t hrombus. 2. No acute intracranial hemorrhage or mass effect. Degenerative and nonspecific white matter changes most typical remote ischemia. Slightly greater central component of ventricular dilation can be asso ciated with normal pressure hydrocephalus correlate clinically. 3. Severe multilevel degenerative disc disease with no acute fracture.
[2021-03-21] MEDS ORDERED: SODIUM BICARB 8.4% 50 ML SYR (1 MEQ/ML) IV STA (14:07)
[2021-03-21] MEDS ORDERED: DEXTROSE 50% SYRINGE 50 ML IVP STA (14:23)
--- NOTE | 2021-03-21 14:36 | P.HPOR ---
History of Present Illness H&P Date: 03/21/21 Chief Complaint: right upper extremity injury Mr. Busby is a 70-year-old male with a history of Parkinson's and diabetes who either Friday night or Friday morning got trapped between an end table and the box spring of his bed with his right arm caught behind him with his weight on it. He was trapped in this position as he was unable to extricate himself until today, Friday, when he was found by relatives and brought to [facility] for further evaluation and management. On admission to the ER, he was found to have a ecchymotic and swollen right upper extremity which the patient was unable to move with regards to the shoulder, elbow or wrist/fingers. He was noted to be particularly swollen and tense in his forearm compartments. He lacks sensation below the level of the elbow in all areas, and had patchy significantly decreased sensation above the elbow to the shoulder. He was unable to move shoulder elbow or hand/fingers as previously noted. Pulses were checked at the time of the admission and found to have excellent radial and ulna r pulses. I was called for further evaluation and management considering that this patient was showing signs of compartment syndrome. He has a history of Parkinson syndrome for which he takes medications, and denies any other injury currently. He is a diabetic with a history of diabetes-related bilateral lower extremity neuropathy. He is somewhat of a poor historian and so it is unclear whether he had neuropathy involving his upper extremities prior to this injury. However, he notes full motion, strength and sensation of the contralateral left forearm, hand, and wrist. Review of Systems Constitutional: Reports as per HPI Past Medical History Past Medical History: Diabetes Mellitus Additional Past Medical History / Comment(s): guillian-barre syndrome, parkinsons, rt. shoulder rotator cuff repair, lasic eye surgery, L4-L5 laporoscopy History of Any Multi-Drug Resistant Organisms: None Reported Past Surgical History: Back Surgery Past Psychological History: No Psychological Hx Reported Smoking Status: Never smoker Past Alcohol Use History: None Reported Past Drug Use History: None Reported Medications and Allergies Home Medications Medication Instructions Recorded Confirmed Type Aspirin EC [Ecotrin Low Dose] 81 mg PO DAILY 10/01/20 10/01/20 History Carbidopa-Levodopa 25-100 mg 1.5 tab PO TID 10/01/20 10/01/20 History [Sinemet 25-100 mg] Levothyroxine Sodium [Synthroid] 150 mcg PO DAILY 10/01/20 10/01/20 History Multivitamins, Thera [Multivitamin 1 tab PO DAILY 10/01/20 10/01/20 History (formulary)] Pregabalin [Lyrica] 150 mg PO TID 10/01/20 10/01/20 History Tamsulosin HCl [Flomax] 0.4 mg PO DAILY 10/01/20 10/01/20 History metFORMIN HCL [Glucophage] 1,000 mg PO BID 10/01/20 10/01/20 History Ciprofloxacin HCl [Cipro] 500 mg PO BID 12 Days #24 tab 10/04/20 Rx Cyanocobalamin [Vitamin B-12] 1,000 mcg PO DAILY tab 10/04/20 Rx Cephalexin [Keflex] 500 mg PO Q12HR 10 Days #20 cap 10/05/20 Rx Allergies Allergy/AdvReac Type Severity Reaction Status Date / Time Sulfa (Sulfonamide Allergy Unknown Verified 03/21/21 15:34 Antibiotics) Physical Examination Examination of the right upper extremity shows a swollen arm region from the shoulder to the elbow, with moderate swelling but minimal ecchymosis. Sensation is very patchy in this region as he is able to feel some degree of light touch but he describes it as a electric sensation. He was unable to elevate the arm at the shoulder in any direction. Passive movement of the shoulder does not cause much pain but it is slightly irritable. Compartments of the actual arm feel relatively soft compared to the forearm. Forearm compartments are tense. He is unable to feel any sensation below the level of the elbow in median, ulnar and radial nerve distributions. Hand and wrist are ecchymotic but fingertips are relatively normal. Capillary refill in fingertips is approximately 2 seconds. He is unable to move the wrist or the fingers including the thumb in any direction. Passive extension of the fingers and flexion of the fingers produces no pain presumably due to his lack of sensation below the level of the elbow. Radial pulse and ulnar pulse are 2+. Forearm compartments are tense, especially proximally. Results - Labs Labs: Abnormal Lab Results - Last 24 Hours (Table) 03/21/21 03/21/21 03/21/21 Range/Units 13:08 13:08 13:08 WBC 13.9 H (3.8-10.6) k/uL Hct 53.6 H (39.0-53.0) % Neutrophils # 12.2 H (1.3-7.7) k/uL Lymphocytes # 0.7 L (1.0-4.8) k/uL Sodium 136 L (137-145) mmol/L Potassium 6.1 H* (3.5-5.1) mmol/L Carbon Dioxide 19 L (22-30) mmol/L Creatinine 1.35 H (0.66-1.25) mg/dL Glucose 242 H (74-99) mg/dL Plasma Lactic Acid Be 7.1 H* (0.7-2.0) mmol/L AST 660 H (17-59) U/L ALT 259 H (4-49) U/L H & H 03/21/21 Range/Units 13:08 Hgb 17.4 (13.0-17.5) gm/dL Hct 53.6 H (39.0-53.0) % Coagulation 03/21/21 Range/Units 13:08 INR 1.1 (<1.2) Result Diagrams: 03/21/21 13:08 03/21/21 13:08 Assessment and Plan Assessment: 70 year old with apparent right upper extremity compartment syndrome involving the forearm (1) Compartment syndrome of forearm Current Visit: Yes Status: Acute Priority: High Onset Date: ~03/21/21 Code(s): T79.A19A - TRAUMATIC COMPARTMENT SYNDROME OF UNSP UPPER EXTREMITY, INIT SNOMED Code(s): 996060923 Plan: I have seen and examined the patient personally today along with Dr. Gerardo, from vascular who recommended an upper extremity Doppler exam. I'm still awaiting upper extremity x-rays. Considering his clinical picture and warm ischemia time of 30+ hours, I do feel that forearm compartment fasciotomy would be his best chance of regaining function, although I have warned him of the risk of persistent problems such as diminished hand, wrist, finger, forearm, elbow, and possibly shoulder function due to the compression of neurovascular structures. He has signs of reperfusion injury with a plasma lactic acid [place] 7.[address] [place] [id number]. He also has elevated potassium at 6.2. I have recommended forearm fasciotomies for this patient and have discussed the procedure with the patient and his daughter in depth. I have told him that this may or may not help and recovery of the muscle depending on the issues around the warm ischemia time was 30+ hours. He also has a history of diabetes, which will increase the risk of certain complications. It may be that the muscle will continue to due to microvascular compromise during these last 36 hours. However, the fasciotomy would provide the best chance of recovery for this patient. I discussed the risks of surgery as being inclusive of, but not limited to: Bleeding, infection, scarring, discomfort, blood vessel and/or nerve damage, persistence of or worsening of problems, blood clot, pulmonary embolism, , loss of limb, need for amputation, and other risks. We have also considered transferred to a higher level institution, however, per Dr. Austin emergency rooms of higher level centers are not accepting patients for any reason. The operation has been scheduled at the earliest available time which is 3:30 pm today. I have answered all the patient's questions and those of his daughter and they wish to proceed with surgery. A consent will be signed forthwith. Time with Patient: Greater than 30
--- NOTE | 2021-03-21 14:46 | XR ---
EXAMINATION TYPE: XR humerus RT DATE OF EXAM: 03/21/2021 COMPARISON: NONE HISTORY: Pain TECHNIQUE: 2 views submitted. FINDINGS: The osseous structures are intact and hypertrophic changes involving the humeral noted. IMPRESSION: 1. No acute fracture or dislocation.
--- NOTE | 2021-03-21 14:47 | XR ---
EXAMINATION TYPE: XR forearm RT DATE OF EXAM: 03/21/2021 COMPARISON: NONE HISTORY: Pain Two views of the forearm demonstrate that the osseous structures appear to be intact and the joint sp aces appear to be preserved. There is no acute fracture or dislocation. Soft tissue edema noted. IMPRESSION: 1. No acute fracture or dislocation. 2. Diffuse soft tissue edema. Correlate for posttraumatic or postinfectious edema.
--- NOTE | 2021-03-21 14:48 | XR ---
EXAMINATION TYPE: XR shoulder complete RT DATE OF EXAM: 03/21/2021 COMPARISON: NONE HISTORY: Pain TECHNIQUE: Three views are submitted. FINDINGS: Widening of the AC joint is likely chronic. Hypertrophic spurring and arthropathy of the glenohumeral joint. Visualized rib cage intact. There is a faint lucency involving the distal margin of the clavi rhoda. Soft tissue edema noted. IMPRESSION: 1. Findings suspicious for hairline fracture nondisplaced distal right clavicle. 2. Correlate for soft tissue edema.
[2021-03-21] MEDS ORDERED: SODIUM POLYSTYRENE SULFONATE 15 GM/60 ML BOTTLE PO STA (14:49)
--- NOTE | 2021-03-21 14:49 | XR ---
EXAMINATION TYPE: XR chest 2V DATE OF EXAM: 03/21/2021 COMPARISON: 10/01/2020 TECHNIQUE: PA and lateral views submitted. HISTORY: Pain FINDINGS: Elevated right hemidiaphragm with subsegmental changes at the right lung base. There is no pneumothor ax. No overt failure. Heart size is enlarged but stable. Widening of the right AC joint noted. Arthro juliane of the left AC joint. Density overlying the right upper lobe may be related to the tubing rathe r than a pulmonary nodule. IMPRESSION: 1. Right lower lobe atelectasis or early infiltrate. 2. Nodular density right lung may be related to superimposed structures short-term follow-up PA and l ateral view of the chest recommended.
[2021-03-21] MEDS ORDERED: NALOXONE 0.4 MG/ML 1 ML VIAL IV PRN (14:50)
--- NOTE | 2021-03-21 15:00 | XR ---
Right hand HISTORY: Trauma and pain 3 views of the right hand Arthropathy is present in the first digit to include the carpometacarpal joint, metacarpophalangeal j oint and interphalangeal joint, degenerative changes are present at the interphalangeal joints of the remaining digits. Digits are flexed which could limit evaluation. Some remodeling present at the rad iocarpal joint. Alignment is maintained. Soft tissue swelling is suspected. Some sclerosis at the dis rupa phalanx of the first digit appears chronic. IMPRESSION: Flexed digits limits evaluation. No fracture or dislocation is evident, follow-up as mathieu cated. There is extensive soft tissue swelling. Osteoarthritis.
[2021-03-21] MEDS ORDERED: CALCIUM GLUCONATE 1 GM in SODIUM CHLORIDE 0.9% 100 ML IVPB ONE (15:02)
--- NOTE | 2021-03-21 15:25 | US ---
EXAMINATION TYPE: US venous doppler duplex UE RT DATE OF EXAM: 03/21/2021 COMPARISON: NONE CLINICAL HISTORY: dvt. Patient had pinned right arm for 2 days, discoloration of arm - purple, pain, numbness, no h/o dvt, patient headed to OR immediate following for compartment syndrome SIDE PERFORMED: Right Visualized portions of the right internal jugular vein, subclavian vein and brachial veins are patent with color flow and vascular waveforms. The cephalic vein, basilic vein, ulnar and radial veins are patent. Right Arm: Limited view of distal subclavian vein and axillary vein due to extensive edema and irregu lar breathing due to pain, otherwise no obvious DVT or SVT seen at this time. IMPRESSION: There are some limitations the exam. No evident deep venous thrombosis in the right upper extremity a s described.
[2021-03-21] MEDS ORDERED: IV FLUID CONTINUATION 800 ML IV ONE (15:41)
[2021-03-21] MEDS ORDERED: IV FLUID CONTINUATION 600 ML IV ONE (15:42)
[2021-03-21 15:45] LABS: Albumin 3.8 g/dL (3.5-5.0); Calcium 8.7 mg/dL (8.4-10.2); Potassium 5.1 mmol/L (3.5-5.1); Total Bilirubin 0.6 mg/dL (0.2-1.3); Total Protein 7.1 g/dL (6.3-8.2)
--- NOTE | 2021-03-21 15:54 | P.CONS ---
History of Present Illness - Reason for Consult Consult date: 03/21/21 - Chief Complaint Compartment syndrome right arm - History of Present Illness 70 years old male patient of Dr. Pennington with past medical history of Parkinson's, diabetes with diabetic neuropathy, hypothyroidism, calendar in 2007, chronic back pain with lumbar surgery 25 years ago comes in after he was found pinned in between his bed and the nightstand. Patient stated that he was rolling in his bed when he got stuck. According to the daughter bedside it appears patient has been stuck there for 2 days since he has not taken his medication. Patient was unable to reach anybody. Since nobody heard anything from the patient family called neighbors and friends to check on him. Patient was alert and was found suspended and there in between his bed and nightstand and unable to move himself from this position. Patient was released from his position and brought to the hospital. He is unable to move his right upper extremity with significant bruising and ecchymosis involving the forearm and the hand. Patient has no mobility involving his right arm , with contracture involving his hand.. Patient denies dizziness, confusion or recent falls. He states he was doing well and had no fever, chills, polyuria increased frequency or concern for sepsis. He did see a urologist at [facility] for his recurrent UTIs in January and was found to have a urine infection. Patient was admitted in in October for recurrent falls and UTI sepsis with E. coli resistant to fluoroquinolones. Patient is fairly active at baseline and goes to gym 4 times a week. Patient had a detailed workup including MRI, EEG and echocardiogram on his admission in October, echocardiogram suggest moderate concentric left ventricle hypertrophy with EF 55-60% on the valves with mild mitral and tr icuspid regurgitation. Right ventricle pressures were less than 35mm. Vitals reviewed patient is afebrile pulse 63 respiratory rate 16 blood pressure 147/99 oxybutynin 95% on room air. Labs reviewed WBC 13.9 hemoglobin 17.4 sodium 136 potassium 6.1 bicarbonate 19 creatinine 1.35 and blood sugar 242 lactic acid 7.1 AST 660 ALT 259 with CK levels [id number] troponin [address] head and cervical spine showed right ICA hyperdense and recommended CT angiography to: For list exclude internal thrombosis no acute intracranial hemorrhage or mass effect degenerative and nonspecific white matter changes most typical remote ischemia slightly gait greater central competent of ventricle dil ation can be associated with normal pressure hydrocephalus severe multilevel degenerative disc disease no fracture X-rays humerus was negative for fracture or dislocation. X-ray forearm suggestive no acute fracture diffuse soft tissue edema suggestive of posttraumatic or postinfectious edema shoulder x-ray on the right shows hairline fracture nondisplaced distal right clavicle with soft tissue edema. Chest x-ray with right lower lobe A to lactose is only infiltrated nodular density right lung may be related to superimposed structure short-term follow-up with repeat chest x-ray recommended. EKG suggested normal sinus rhythm with T-wave abnormality noted x-ray hand no fracture or dislocation but patient's patient's were flexed extensive soft tissue swelling noted ROS Constitutional: Denies chills, Denies fever, Denies lethargy, Denies malaise, Denies poor appetite, Denies weakness, Denies weight loss Eyes: denies decreased vision, denies diplopia, denies discharge, denies pain Ears: deny: decreased hearing Ears, nose, mouth and throat: Denies dental pain, Denies headache, Denies nasal discharge, Denies nose pain Cardiovascular: Denies chest pain, Denies decreased exercise tolerance, Denies edema, Denies high blood pressure, Denies irregular heart beat, Denies palpitations, Denies paroxysmal nocturnal dyspnea, Denies rapid heart beat, Denies shortness of breath Respiratory: Denies congestion, Denies cough, Denies cough with sputum, Denies dyspnea, Denies home oxygen, Denies wheezing Gastrointestinal: Denies abdominal pain, Denies change in bowel habits, Denies coffee ground emesis, Denies early satiety, Denies excessive gas, Denies heartb urn, Denies hematemesis, Denies hematochezia, Denies loss of appetite, Denies nausea, Denies vomiting Genitourinary: Denies dysuria, Denies flank pain, Denies kidney stones, Denies menorrhagia, Denies urgency, Denies urinary frequency Musculoskeletal: Denies gait dysfunction, Denies limitation of motion, Denies morning stiffness, Denies muscle cramps endorses contracture, swelling involving right upper extremity Integumentary: Denies rash, Denies wounds, Denies brittle nails, Denies change in hair/nails, Denies darkening of skin Neurological: Denies balance difficulties, Denies change in speech, Denies double vision, Denies gait dysfunction, Denies loss of vision, Denies motor disturbance, Denies numbness, Denies paralysis, induces theER and tingling involving the dorsal aspect of foot Denies seizures Psychiatric: Denies anxiety, Denies depression Endocrine: Denies excessive sweating, Denies excessive thirst, Denies high blood sugars, Denies palpitations Hematologic/Lymphatic: Denies easy bruising, Denies lymphadenopathy SOCIAL HISTORY Patient is a lifelong nonsmoker. He denies any alcohol or street drug use. He is using THC cream for neuropathy. FAMILY HISTORY Mother is alive at age 90 with no major medical problems. Father at age 88 from dementia. Patient has 2 brothers and 2 sisters with no major medical problems. Patient has one son and one daughter with no major medical problems.. Physical exam - Constitutional General appearance: Alert and oriented 3 cooperative, no acute distress, obese - EENT Eyes: anicteric sclerae, PERRLA, normal appearance ENT: hearing grossly normal - Neck Neck: no lymphadenopathy, normal ROM, no other, no rigidity, no stridor, no thyromegaly - Respiratory Respiratory: bilateral: CTA, negative: diminished, dullness, rales, rhonchi - Cardiovascular Rhythm: regular Heart sounds: normal: S1, S2 Abnormal Heart Sounds: no systolic murmur, no diastolic murmur, no rub, no S3 Gallop, no S4 Gallop, no click, no other - Gastrointestinal General gastrointestinal: normal bowel sounds, soft nontender - Integumentary Integumentary: Significant bruising and ecchymosis involving right upper extremity involving the hand, forearm and arm with significant swelling. - Neurologic Neurologic: 0/5 on flexion/extension /internal rotation and external rotation involving right upper extremity, lack of sensation involving the right forearm. Sensation intact in the upper arm. tingling and numbness involving the dorsal aspect of both feet - Musculoskeletal Musculoskeletal: gait not assessed, , right upper extremity with no active movement, hand in flexion with diffuse swelling involving the digits, wrist, forearm and upper arm and axilla. Nontender to touch peripheral pulses are diminished involving the right upper extremity. No mobility involving shoulder, elbow or wrist or fingers. Lack of sensation involving the right upper extremity. Passive shoulder movement present with no significant pain. No significant pain involving forearm or hand. capillary refill close to 2 seconds. Peripheral pulses are diminished compared to the other extremity. - Psychiatric Psychiatric: A&O x's 3, appropriate affect Assessment and plan Right forearm compartment syndrome -Plan for fasciotomy today with Dr. Paez. Vascular surgery Dr. Gerardo is consulted -Patient is cleared for surgery but carries a risk of 2.4% for any acute cardiac event involving cardiac nonfatal MT or nonfatal cardiac arrest. His surgery is eminent to save his limb. Patient echocardiogram from October 2020 denies any history of previous MT with ejection fraction of 55-60%. - Potassium corrected with insulin and bicarbonate. Repeat CMP and one dose of Kayexalate and calcium gluconate recommended to prevent arrhythmia loss during surgery Acute rhabdomyolysis secondary to injury -Status post 2 L IV fluids. Continue IV fluids at 1 30 mL per hour - Unclear if patient had a fall due to confusion Hyperkalemia secondary to Rhabdomyolysis - Status post insulin regular 10 units with sodium bicarb - 1 dose of Kayexalate 15 g ordered - Calcium gluconate 1 g stat to stabilize patient for surgery - EKG suggestive of T-wave changes Acute lactic acidosis secondary to hypovolemia - Repeat lactic acid - Status post 2 L IV fluids - Continue IV fluids at 1 30 mL/h. Patient may need further boluses Acute kidney injury secondary to rhabdomyolysis secondary to ATN - Continue IV fluids with normal saline at 1 30 mL per hour - Baseline creatinine 0.8 -Avoid nephrotoxic agent -Hold metformin Acute transaminitis - Liver enzymes have worsened since last admission -Continue perfusion with IV fluids Type II uncontrolled diabetes - Last A1c 7.2 - Hold metformin - Continue insulin sliding Scale and Lantus at 5 units at at bedtime History of UTI - Would recommend urinalysis as patient was septic in October 2020 and is currently undergoing treatment with urologist according to the daughter bedside. History of Sepsis secondary to acute urinary tract infection In October 2020 - Unclear if patient fall was a result of confusion. Infectious metabolic encephalopathy - resolved - CT head and neck suggestive of hyperdense involving right carotid. We will evaluate with CT angiogram head and neck.. Also mentioned normal pressure hydrocephalus on the CAT scan though MRI was negative for hydrocephalus in October Frequent falls possibly related to worsening Parkinson's, exacerbated by sepsis. - Does PT as outpatient. We'll evaluate for rehab once patient is stable Diabetic polyneuropathy. Lyrica 225 mg twice daily Parkinson's. -Continue Sinemet 251 101-1/2 3 times daily. Hypothyroidism. -Continue levothyroxine 150 Scott grams daily. Guillain-Tacoma syndrome in 2008. Benign prostatic hypertrophy. -Continue Flomax or 0.4 mg daily. GI prophylaxis. Protonix. DVT prophylaxis. Heparin subcu. . Thank you for the consult and I'll be happy to assist in patient's medical needs while patient is in the hospital DISCHARGE PLAN Home, to be determined. PT and OT consults.. Past Medical History Past Medical History: Diabetes Mellitus Additional Past Medical History / Comment(s): guillian-barre syndrome, parkinsons, rt. shoulder rotator cuff repair, lasic eye surgery, L4-L5 laporoscopy History of Any Multi-Drug Resistant Organisms: None Reported Past Surgical History: Back Surgery Past Psychological History: No Psychological Hx Reported Smoking Status: Never smoker Past Alcohol Use History: None Reported Past Drug Use History: None Reported Medications and Allergies Home Medications Medication Instructions Recorded Confirmed Type Aspirin EC [Ecotrin Low Dose] 81 mg PO DAILY 10/01/20 10/01/20 History Carbidopa-Levodopa 25-100 mg 1.5 tab PO TID 10/01/20 10/01/20 History [Sinemet 25-100 mg] Levothyroxine Sodium [Synthroid] 150 mcg PO DAILY 10/01/20 10/01/20 History Multivitamins, Thera [Multivitamin 1 tab PO DAILY 10/01/20 10/01/20 History (formulary)] Pregabalin [Lyrica] 150 mg PO TID 10/01/20 10/01/20 History Tamsulosin HCl [Flomax] 0.4 mg PO DAILY 10/01/20 10/01/20 History metFORMIN HCL [Glucophage] 1,000 mg PO BID 10/01/20 10/01/20 History Ciprofloxacin HCl [Cipro] 500 mg PO BID 12 Days #24 tab 10/04/20 Rx Cyanocobalamin [Vitamin B-12] 1,000 mcg PO DAILY tab 10/04/20 Rx Cephalexin [Keflex] 500 mg PO Q12HR 10 Days #20 cap 10/05/20 Rx Allergies Allergy/AdvReac Type Severity Reaction Status Date / Time Sulfa (Sulfonamide Allergy Unknown Verified 03/21/21 15:09 Antibiotics) Physical Exam Vitals: Vital Signs Temp Pulse Resp BP Pulse Ox 03/21/21 14:48 82 18 147/99 95 03/21/21 12:36 98 F 74 18 142/99 96 Intake and Output 03/21/21 03/21/21 03/21/21 06:59 14:59 22:59 Other: Weight 74.843 kg Results CBC & Chem 7: 03/21/21 13:08 03/21/21 13:08 Labs: Abnormal Lab Results - Last 24 Hours (Table) 03/21/21 03/21/21 03/21/21 Range/Units 13:08 13:08 13:08 WBC 13.9 H (3.8-10.6) k/uL Hct 53.6 H (39.0-53.0) % Neutrophils # 12.2 H (1.3-7.7) k/uL Lymphocytes # 0.7 L (1.0-4.8) k/uL Sodium 136 L (137-145) mmol/L Potassium 6.1 H* (3.5-5.1) mmol/L Carbon Dioxide 19 L (22-30) mmol/L Creatinine 1.35 H (0.66-1.25) mg/dL Glucose 242 H (74-99) mg/dL Plasma Lactic Acid Be 7.1 H* (0.7-2.0) mmol/L AST 660 H (17-59) U/L ALT 259 H (4-49) U/L Creatine Kinase 69814 H* (55-170) U/L
[2021-03-21] MEDS ORDERED: fentaNYL (PF) 50 MCG/ML 2 ML AMP ONE (15:55)
[2021-03-21] MEDS ORDERED: PHENYLEPHRINE-0.9% NACL SYG 1,000 MCG/10 ML SYRINGE ONE (15:55)
[2021-03-21] MEDS ORDERED: MIDAZOLAM 2 MG/2 ML VIAL ONE (15:55)
[2021-03-21] MEDS ORDERED: PROPOFOL 10 MG/ML 20 ML VIAL IV ONE (15:55)
[2021-03-21] MEDS ORDERED: ROCURONIUM 10 MG/ML (5 ML VIAL) IV ONE (15:55)
[2021-03-21] MEDS ORDERED: NEOSTIGMINE 1 MG/ML 10 ML VIAL ONE (15:55)
[2021-03-21] MEDS ORDERED: GLYCOPYRROLATE 0.2 MG/ML 2 ML VIAL ONE (15:55)
[2021-03-21] MEDS ORDERED: LIDOCAINE 1% INJ 10MG/ML (20 ML MDV) ONE (15:55)
[2021-03-21] MEDS ORDERED: LACTATED RINGERS 1,000 ML IV ONE (16:30)
[2021-03-21] MEDS ORDERED: SENNOSIDES-DOCUSATE SODIUM 1 EACH TAB PO PRN (17:24)
[2021-03-21] MEDS ORDERED: TEMAZEPAM 15 MG CAP PO PRN (17:24)
[2021-03-21] MEDS ORDERED: HYDROmorphone 0.2 MG/1 ML SYRINGE IVP PRN (17:24)
[2021-03-21] MEDS ORDERED: diphenhydrAMINE 25 MG CAP PO PRN (17:24)
[2021-03-21] MEDS ORDERED: HYDROmorphone 0.5 MG/0.5 ML SYRINGE IVP PRN (17:24)
[2021-03-21] MEDS ORDERED: ONDANSETRON 4 MG/2 ML VIAL IVP PRN (17:24)
--- NOTE | 2021-03-21 17:36 | P.OP ---
Date of Procedure: 03/21/21 Procedure(s) Performed: PREOPERATIVE DIAGNOSES: 1. Right forearm compartment syndrome POSTOPERATIVE DIAGNOSES: 1. Right forearm compartment syndrome PROCEDURES PERFORMED: 1. Right forearm fasciotomies of 3 compartments (volar, mobile wad, dorsal) 2. Application of wound VAC (negative pressure wound dressing) to forearm fasciotomy wounds ANESTHESIA: Gen. COMPLICATIONS: None ESTIMATED BLOOD LOSS: 25 mL. DISPOSITION: To post-anesthesia care unit INDICATIONS: Nilay is a 70-year-old male with multiple medical problems including Guillain-Hoffman syndrome, diabetes, peripheral neuropathy, and Parkinson's, who injured his right upper extremity when he was trapped between and end table and the boxspring of his bed. He has developed obvious compartment syndrome of his right forearm and I have recommended emergent fasciotomies to relieve the pressure. He already has signs of her reperfusion injury with high creatine kinase, potassium, lactic acid, and LFTs. The amount of time he was trapped is unclear, but apparently at least 8 hours to perhaps as long as 30 hours. I described the steps of the fasciotomy operation and potential risks and complications as being inclusive of, but not limited to: Bleeding, infection, scarring, discomfort, blood vessel and/or nerve damage, need for skin grafting, persistent pain, ischemic contracture, stiffness of elbow wrist and/or fingers, weakness, permanent nerve damage, , loss of limb, and other risks. The patient is aware these risks and wishes to proceed with surgery. The consent form has been signed. PROCEDURE: After appropriate consent was obtained, the patient was taken to the operating room placed in the supine position. General anesthesia was initiated, and after confirmation of adequate anesthesia, the patient was carefully positioned. Care was taken to make sure that all pressure points were adequately padded. Prepping and draping were completed in the usual aseptic fashion using ChloraPrep. Timeout was called, confirming patient identity, side, procedure, and administration of antibiotics. No tourniquet was used. An incision was created on the volar aspect of the forearm in the central third, starting from just radial to the FCU tendon and progressing to the radial side of the biceps tendon. After incision through skin, was noted that there was significant bulging of the wound just from the skin incision. The dissection proceeded down to FCU fascia which was identified and split longitudinally using long Metzenbaum scissors. Significant bulging of this muscular compartment was noted. Normal-appearing color, consistency, contractility, and perfusion with bleeding of the muscles was noted. There was no evidence of ischemic tissue. Dissection then proceeded between the FCU and FDS muscles to the deep flexor compartment which was also incised longitudinally. The mobile wad containing the brachial radialis, ECRB, and ECRL muscles was then approached from this volar incision and the brachial radialis muscular fascia was identified and split longitudinally in similar fashion under direct visualization. Once again, muscle appeared normal throughout. Once this above procedure was performed, attention was then directed to the dorsal side of the forearm. The dorsal compartment felt fairly soft at this point; however, dorsal compartment release was performed in similar fashion to the volar compartment with an incision from approximately midline wrist to the area approximately 2 cm distal to the lateral epicondyle. Incision was carefully taken down through skin and to fascia and the dorsal muscular compartment just adjacent to the ulna was released using long Metzenbaum scissors, under direct visualization. Both wounds were then thoroughly irrigated with normal saline and hemostasis was obtained using electrocautery. A large wound VAC was applied to both the dorsal and volar wounds with a bridge sponge between. Adequate seal was confirmed. Noticeable improvement in the color and appearance including the swelling of the hand was noted once these compartments were released. Radial pulse remained 2+ and capillary refill was at this point less than 2 seconds. Patient tolerated the procedure well and taken to recovery room in stable condition.
--- NOTE | 2021-03-21 18:02 | P.GSCN ---
History of Present Illness Consult date: 03/21/21 History of present illness: Nilay is a 70-year-old male who presented to the ER with a issue with his right upper extremity. He has a history of Parkinson's, diabetes, diabetic neuropathy, hypothyroidism, chronic back pain. He was found by a wellness visit after known had seen the patient and was reportedly found stuck in between his bed in his nightstand. He was alert and found suspended in this location and unable to move himself. Once he was released from his physician he was brought to the hospital. At the time of our evaluation he is able to move his right extremity. He has significant areas of mottling and tightness to his upper extremity with some ecchymosis. He has no mobility and a contracture of his hand. He denies a recent falls or other issues. He has a fevers, chills, nausea, vomiting or issues otherwise. Upon further evaluation in the area was found to be Covid positive Past Medical History Past Medical History: Diabetes Mellitus Additional Past Medical History / Comment(s): guillian-barre syndrome, parkinsons, rt. shoulder rotator cuff repair, lasic eye surgery, L4-L5 laporoscopy History of Any Multi-Drug Resistant Organisms: None Reported Past Surgical History: Back Surgery Past Psychological History: No Psychological Hx Reported Smoking Status: Never smoker Past Alcohol Use History: None Reported Past Drug Use History: None Reported Medications and Allergies Home Medications Medication Instructions Recorded Confirmed Type Aspirin EC [Ecotrin Low Dose] 81 mg PO DAILY 10/01/20 03/21/21 History Carbidopa-Levodopa 25-100 mg 1.5 tab PO TID 10/01/20 03/21/21 History [Sinemet 25-100 mg] Levothyroxine Sodium [Synthroid] 150 mcg PO DAILY 10/01/20 03/21/21 History Multivitamins, Thera [Multivitamin 1 tab PO DAILY 10/01/20 03/21/21 History (formulary)] Pregabalin [Lyrica] 150 mg PO TID 10/01/20 03/21/21 History Tamsulosin HCl [Flomax] 0.4 mg PO DAILY 10/01/20 03/21/21 History metFORMIN HCL [Glucophage] 1,000 mg PO BID 10/01/20 03/21/21 History Allergies Allergy/AdvReac Type Severity Reaction Status Date / Time Sulfa (Sulfonamide Allergy Unknown Verified 03/21/21 15:47 Antibiotics) Surgical - Exam Vital Signs Temp Pulse Resp BP Pulse Ox 98 F 74 18 142/99 96 03/21/21 12:36 03/21/21 12:36 03/21/21 12:36 03/21/21 12:36 03/21/21 12:36 Gen. a pleasant cooperative male in no acute distress. he is evaluated post-CT in the radiology suite. HEENT is normal cephalic, atraumatic, extraction motion intact. Heart appears regular this time. Lungs are clear bilaterally. Abdomen is soft, obese, nontender. There is some areas of pressure ulcers and pressure deformities of his chest wall and right upper arm. He has normal motor function of his lower extremities. Normal left upper extremity. Right upper extremity appears taut. He has palpable radial ulnar pulses. Cyanotic changes to the hand. Contraction deformity, unable to move. Results - Labs 03/21/21 13:08 03/21/21 15:25 Abnormal Lab Results - Last 24 Hours (Table) 03/21/21 03/21/21 03/21/21 Range/Units 13:08 13:08 13:08 WBC 13.9 H (3.8-10.6) k/uL Hct 53.6 H (39.0-53.0) % Neutrophils # 12.2 H (1.3-7.7) k/uL Lymphocytes # 0.7 L (1.0-4.8) k/uL Sodium 136 L (137-145) mmol/L Potassium 6.1 H* (3.5-5.1) mmol/L Carbon Dioxide 19 L (22-30) mmol/L Creatinine 1.35 H (0.66-1.25) mg/dL Glucose 242 H (74-99) mg/dL Plasma Lactic Acid Be 7.1 H* (0.7-2.0) mmol/L AST 660 H (17-59) U/L ALT 259 H (4-49) U/L Creatine Kinase 67884 H* (55-170) U/L Coronavirus (PCR) (Not Detectd) 03/21/21 03/21/21 03/21/21 Range/Units 15:20 15:25 15:25 WBC (3.8-10.6) k/uL Hct (39.0-53.0) % Neutrophils # (1.3-7.7) k/uL Lymphocytes # (1.0-4.8) k/uL Sodium 135 L (137-145) mmol/L Potassium (3.5-5.1) mmol/L Carbon Dioxide 21 L (22-30) mmol/L Creatinine 1.39 H (0.66-1.25) mg/dL Glucose 259 H (74-99) mg/dL Plasma Lactic Acid Be 6.9 H* (0.7-2.0) mmol/L AST 1293 H (17-59) U/L ALT 322 H (4-49) U/L Creatine Kinase (55-170) U/L Coronavirus (PCR) Detected A (Not Detectd) Diabetes panel 03/21/21 03/21/21 Range/Units 13:08 15:25 Sodium 136 L 135 L (137-145) mmol/L Potassium 6.1 H* 5.1 (3.5-5.1) mmol/L Chloride 100 102 (98-107) mmol/L Carbon Dioxide 19 L 21 L (22-30) mmol/L BUN 16 18 (9-20) mg/dL Creatinine 1.35 H 1.39 H (0.66-1.25) mg/dL Glucose 242 H 259 H (74-99) mg/dL Calcium 9.8 8.7 (8.4-10.2) mg/dL AST 660 H 1293 H (17-59) U/L ALT 259 H 322 H (4-49) U/L Alkaline Phosphatase 80 73 (38-126) U/L Total Protein 8.0 7.1 (6.3-8.2) g/dL Albumin 4.5 3.8 (3.5-5.0) g/dL Calcium panel 03/21/21 03/21/21 Range/Units 13:08 15:25 Calcium 9.8 8.7 (8.4-10.2) mg/dL Albumin 4.5 3.8 (3.5-5.0) g/dL Pituitary panel 03/21/21 03/21/21 Range/Units 13:08 15:25 Sodium 136 L 135 L (137-145) mmol/L Potassium 6.1 H* 5.1 (3.5-5.1) mmol/L Chloride 100 102 (98-107) mmol/L Carbon Dioxide 19 L 21 L (22-30) mmol/L BUN 16 18 (9-20) mg/dL Creatinine 1.35 H 1.39 H (0.66-1.25) mg/dL Glucose 242 H 259 H (74-99) mg/dL Calcium 9.8 8.7 (8.4-10.2) mg/dL Adrenal panel 03/21/21 03/21/21 Range/Units 13:08 15:25 Sodium 136 L 135 L (137-145) mmol/L Potassium 6.1 H* 5.1 (3.5-5.1) mmol/L Chloride 100 102 (98-107) mmol/L Carbon Dioxide 19 L 21 L (22-30) mmol/L BUN 16 18 (9-20) mg/dL Creatinine 1.35 H 1.39 H (0.66-1.25) mg/dL Glucose 242 H 259 H (74-99) mg/dL Calcium 9.8 8.7 (8.4-10.2) mg/dL Total Bilirubin 0.7 0.6 (0.2-1.3) mg/dL AST 660 H 1293 H (17-59) U/L ALT 259 H 322 H (4-49) U/L Alkaline Phosphatase 80 73 (38-126) U/L Total Protein 8.0 7.1 (6.3-8.2) g/dL Albumin 4.5 3.8 (3.5-5.0) g/dL Assessment and Plan Assessment: right upper extremity cyanotic changes, ischemia due to compression Palpable radial and ulnar pulse on the right Right arm compartment syndrome Plan: at this point no further vascular intervention is warranted. I did ask for a right upper extremity ultrasound for DVT to ensure no thrombus given his prolonged compression time. The plan will be for him to go to the operative suite with orthopedics for an emergent fasciotomy of his upper extremity.
[2021-03-21] MEDS: SODIUM CHLORIDE 0.9% 1,000 ML IV SCH ×2 (18:23→21:10)
[2021-03-21 19:13] LABS: Lactic Acid, Venous 4.5 mmol/L (0.7-2.0)
[2021-03-21 19:59] LABS: Glucose,Whole Blood 273 mg/dL (75-99)
[2021-03-21] MEDS: INSULIN ASPART (NovoLOG) 100 UNIT/ML VIAL SQ SCH (21:10)
[2021-03-21] MEDS: CARBIDOPA-LEVODOPA 25-100 MG 1 EACH TAB PO SCH (21:10)
[2021-03-21] MEDS: PREGABALIN 75 MG CAP PO SCH (21:10)
[2021-03-21] MEDS: HYDROmorphone 0.5 MG/0.5 ML SYRINGE IVP PRN (23:00)
--- NOTE | 2021-03-22 00:19 | CT ---
EXAMINATION TYPE: CT angio head neck DATE OF EXAM: 03/22/2021 COMPARISON: None HISTORY: abn ct brain read Right arm paralysis. CT DLP: 965.6 mGycm Automated exposure control for dose reduction was used. CONTRAST: Performed with IV Contrast, patient injected with 65 mL of Isovue 370. Images obtained from the aortic arch to the vertex of the brain with IV contrast. There are Three-D p ostprocessed images. There is normal branching pattern of the great vessels on the aortic arch. There is arterial flow in both subclavian arteries. There is arterial flow in the common internal and external carotid arteries bilaterally. There is wide patency of the carotid artery bifurcations. There is arterial flow in bot h vertebral arteries. There is arterial flow in the vertebrobasilar artery system. There is no eviden ce of carotid or vertebral artery aneurysm or dissection. There is arterial flow in the anterior middle and posterior cerebral arteries. There is no evidence o f intracranial aneurysm or neovascularity. There is no mass effect. No evidence of hemodynamic stenos is. There is normal enhancement of the venous sinuses. IMPRESSION: Negative CT angiogram of the neck. Negative CT angiogram of the brain.
[2021-03-22 01:41] LABS: Chol/HDL Ratio 4.52 Ratio; LDL Cholesterol,Calculated 87.6 mg/dL (0.0-131.0)
[2021-03-22] MEDS: SODIUM CHLORIDE 0.9% 1,000 ML IV SCH ×2 (03:29→21:29)
[2021-03-22 03:40] LABS: Appearance,Urine Turbid (Clear); Color,Urine Brown
[2021-03-22] MEDS: HYDROmorphone 0.5 MG/0.5 ML SYRINGE IVP PRN ×3 (03:42→15:30)
[2021-03-22 03:46] LABS: Amorphous Sediment,Urine Few /hpf; Bacteria,Urine Many /hpf; Mucus,Urine Many /hpf; RBC,Urine 56 /hpf (0-5); WBC,Urine >182 /hpf (0-5)
[2021-03-22] MEDS: LEVOTHYROXINE 75 MCG TAB PO SCH (06:26)
[2021-03-22] MEDS: INSULIN ASPART (NovoLOG) 100 UNIT/ML VIAL SQ SCH ×4 (06:26→21:41)
[2021-03-22] MEDS: PREGABALIN 75 MG CAP PO SCH ×3 (08:22→21:42)
[2021-03-22] MEDS: MULTIVITAMINS, THERA 1 EACH TAB PO SCH (08:22)
[2021-03-22] MEDS: CARBIDOPA-LEVODOPA 25-100 MG 1 EACH TAB PO SCH ×3 (08:22→21:41)
[2021-03-22] MEDS: TAMSULOSIN 0.4 MG CAP.ER.24H PO SCH (08:22)
[2021-03-22 09:49] LABS: Glucose,Whole Blood 221 mg/dL (75-99)
[2021-03-22] MEDS ORDERED: SODIUM CHLORIDE 0.9% 2,000 ML IV ONE ×2 (10:33→18:26)
--- NOTE | 2021-03-22 11:04 | P.PN ---
Subjective Progress Note Date: 03/22/21 Principal diagnosis: Compartment syndrome right forearm. Status post Dorsal and volar fasciotomy Right forearm. Multiple medical comorbidities. This is a 70-year-old male who is postop day #1 status post dorsal and volar fasciotomies to the right forearm. He states that he has no sensation to the entire right upper extremity at this time. He also has a nondisplaced distal clavicle fracture. The patient tested positive for Covid 19 on admission. He is afebrile. Objective - Vital Signs Vital signs: Vital Signs Temp 97.5 F L 03/22/21 04:00 Pulse 107 H 03/22/21 04:00 Resp 16 03/22/21 04:00 BP 92/86 03/22/21 04:00 Pulse Ox 95 03/22/21 08:27 Intake & Output 03/21/21 03/22/21 03/22/21 18:59 06:59 18:59 Intake Total 1950 240 360 Output Total 25 300 Balance 1925 -60 360 Weight 74.843 kg Intake: IV 1950 Oral 240 360 Output: Drainage 200 Right Arm 200 Urine 100 Estimated Blood Loss 25 Other: Voiding Method Urinal # Voids 1 - Exam This is a pleasant 70-year-old male in no acute distress. He is alert and oriented at this time. Exam of the right upper extremity reveals mild tenderness to the distal clavicle. There is some swelling to the upper extremity but compartments feel soft. The forearm has 2 open wounds with wound VAC in place. The wound VAC appears to be functioning well. He does not have a palpable radial or ulnar pulse at this time. I am able to find a weak radial pulse with the Doppler. He is unable to actively move fingers. Capillary refill is less than 3 seconds to all fingers. - Labs CBC & Chem 7: 03/21/21 13:08 03/21/21 15:25 Labs: Abnormal Lab Results - Last 24 Hours (Table) 03/21/21 03/21/21 03/21/21 Range/Units 13:08 13:08 13:08 WBC 13.9 H (3.8-10.6) k/uL Hct 53.6 H (39.0-53.0) % Neutrophils # 12.2 H (1.3-7.7) k/uL Lymphocytes # 0.7 L (1.0-4.8) k/uL Sodium 136 L (137-145) mmol/L Potassium 6.1 H* (3.5-5.1) mmol/L Carbon Dioxide 19 L (22-30) mmol/L Creatinine 1.35 H (0.66-1.25) mg/dL Glucose 242 H (74-99) mg/dL POC Glucose (mg/dL) (75-99) mg/dL Hemoglobin A1c (0.0-6.0) % Plasma Lactic Acid Be 7.1 H* (0.7-2.0) mmol/L AST 660 H (17-59) U/L ALT 259 H (4-49) U/L Creatine Kinase 93857 H* (55-170) U/L HDL Cholesterol (40.00-60.00) mg/dL Urine RBC (0-5) /hpf Urine WBC (0-5) /hpf Amorphous Sediment (None) /hpf Urine Bacteria (None) /hpf Urine Mucus (None) /hpf Coronavirus (PCR) (Not Detectd) 03/21/21 03/21/21 03/21/21 Range/Units 13:08 15:20 15:25 WBC (3.8-10.6) k/uL Hct (39.0-53.0) % Neutrophils # (1.3-7.7) k/uL Lymphocytes # (1.0-4.8) k/uL Sodium 135 L (137-145) mmol/L Potassium (3.5-5.1) mmol/L Carbon Dioxide 21 L (22-30) mmol/L Creatinine 1.39 H (0.66-1.25) mg/dL Glucose 259 H (74-99) mg/dL POC Glucose (mg/dL) (75-99) mg/dL Hemoglobin A1c 8.3 H (0.0-6.0) % Plasma Lactic Acid Eb (0.7-2.0) mmol/L AST 1293 H (17-59) U/L ALT 322 H (4-49) U/L Creatine Kinase (55-170) U/L HDL Cholesterol (40.00-60.00) mg/dL Urine RBC (0-5) /hpf Urine WBC (0-5) /hpf Amorphous Sediment (None) /hpf Urine Bacteria (None) /hpf Urine Mucus (None) /hpf Coronavirus (PCR) Detected A (Not Detectd) 03/21/21 03/21/21 03/21/21 Range/Units 15:25 18:34 18:34 WBC (3.8-10.6) k/uL Hct (39.0-53.0) % Neutrophils # (1.3-7.7) k/uL Lymphocytes # (1.0-4.8) k/uL Sodium (137-145) mmol/L Potassium (3.5-5.1) mmol/L Carbon Dioxide (22-30) mmol/L Creatinine (0.66-1.25) mg/dL Glucose (74-99) mg/dL POC Glucose (mg/dL) (75-99) mg/dL Hemoglobin A1c (0.0-6.0) % Plasma Lactic Acid Be 6.9 H* 4.5 H* (0.7-2.0) mmol/L AST (17-59) U/L ALT (4-49) U/L Creatine Kinase (55-170) U/L HDL Cholesterol 33.00 L (40.00-60.00) mg/dL Urine RBC (0-5) /hpf Urine WBC (0-5) /hpf Amorphous Sediment (None) /hpf Urine Bacteria (None) /hpf Urine Mucus (None) /hpf Coronavirus (PCR) (Not Detectd) 03/21/21 03/21/21 03/22/21 Range/Units 19:57 21:54 00:48 WBC (3.8-10.6) k/uL Hct (39.0-53.0) % Neutrophils # (1.3-7.7) k/uL Lymphocytes # (1.0-4.8) k/uL Sodium (137-145) mmol/L Potassium (3.5-5.1) mmol/L Carbon Dioxide (22-30) mmol/L Creatinine (0.66-1.25) mg/dL Glucose (74-99) mg/dL POC Glucose (mg/dL) 273 H (75-99) mg/dL Hemoglobin A1c (0.0-6.0) % Plasma Lactic Acid Be 4.7 H* 4.1 H* (0.7-2.0) mmol/L AST (17-59) U/L ALT (4-49) U/L Creatine Kinase (55-170) U/L HDL Cholesterol (40.00-60.00) mg/dL Urine RBC (0-5) /hpf Urine WBC (0-5) /hpf Amorphous Sediment (None) /hpf Urine Bacteria (None) /hpf Urine Mucus (None) /hpf Coronavirus (PCR) (Not Detectd) 03/22/21 03/22/21 03/22/21 Range/Units 03:36 04:45 06:08 WBC (3.8-10.6) k/uL Hct (39.0-53.0) % Neutrophils # (1.3-7.7) k/uL Lymphocytes # (1.0-4.8) k/uL Sodium (137-145) mmol/L Potassium (3.5-5.1) mmol/L Carbon Dioxide (22-30) mmol/L Creatinine (0.66-1.25) mg/dL Glucose (74-99) mg/dL POC Glucose (mg/dL) 221 H (75-99) mg/dL Hemoglobin A1c (0.0-6.0) % Plasma Lactic Acid Be 3.3 H* (0.7-2.0) mmol/L AST (17-59) U/L ALT (4-49) U/L Creatine Kinase (55-170) U/L HDL Cholesterol (40.00-60.00) mg/dL Urine RBC 56 H (0-5) /hpf Urine WBC >182 H (0-5) /hpf Amorphous Sediment Few H (None) /hpf Urine Bacteria Many H (None) /hpf Urine Mucus Many H (None) /hpf Coronavirus (PCR) (Not Detectd) Assessment and Plan (1) MINI (acute kidney injury) Current Visit: Yes Status: Acute Code(s): N17.9 - ACUTE KIDNEY FAILURE, UNSPECIFIED SNOMED Code(s): 36437615 (2) Compartment syndrome of right upper extremity Current Visit: Yes Status: Acute Code(s): T79.A11A - TRAUMATIC COMPARTMENT SYNDROME OF R UP EXTREM, INIT SNOMED Code(s): 687511317 (3) Compression neuropathy of right upper extremity Current Visit: Yes Status: Acute Code(s): G56.91 - UNSPECIFIED M ONONEUROPATHY OF RIGHT UPPER LIMB SNOMED Code(s): 674608169 (4) Fall Current Visit: Yes Status: Acute Code(s): W19.XXXA - UNSPECIFIED FALL, INITIAL ENCOUNTER SNOMED Code(s): 8697174 (5) Lactic acidosis Current Visit: Yes Status: Acute Code(s): E87.2 - ACIDOSIS SNOMED Code(s): 47740325 (6) Urinary tract infection Current Visit: No Status: Acute Code(s): N39.0 - URINARY TRACT INFECTION, SITE NOT SPECIFIED SNOMED Code(s): 45618515 Plan: The clinical findings are discussed with the patient and nursing staff. I would recommend reevaluation by vascular surgery to assess his pulses to that upper extremity. We're planning return to OR tomorrow to remove the wound VAC in assess the wounds with possible new wound VAC placement or possible closure/partial closure of the wounds.
--- NOTE | 2021-03-22 11:16 | P.CNNES ---
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 who presented emergency department on 03/21/2021 after the patient was found pinned between the bed and the nightstand. Neurology is consulted for dense right MCA reported on the CT of the head. Some of the history is obtained from medical records (since patient was drowsy and just received Dilaudid). It seems that the patient was sleeping and rolled in his bed and got stock and it seemed to the patient got stock therefore 2 days and it at prior to presented to the hospital and that is a result he was not taking any of his medication. He was unable to contact anybody as a result of him being stock. Then the patient was found suspended between his bed and nightstand and unable to move the from that position. He was unable to move his right upper extremity was significant bruising and ecchymosis in the forearm and the hand and had no ability of moving his right arm and had contraction of the right hand on presentation. Patient stated that the that he denied any recurrent falls, confusion or dizziness but just the rolled over in bed and as a result his arm got stock. Of note I personally saw the patient on 10/03/2020 for altered mental status I felt was mostly due to septic encephalopathy due to acute urinary tract infection and a component of metabolic. The patient had low vitamin B12 of 270. I started the patient on vitamin B12 1000 g daily. In admission the patient refused lumbar puncture since he felt possible same local symptoms his prior GBS in the past and he was notified to follow up with his neurologist (Dr. Erica Tamayo). Patient had an EEG during that admission and it was normal. Patient had MRI of the brain and it was fairly unremarkable study. Patient had hemoglobin A1c which was 7.2. Please review my note for further details. Some other workup in the hospital consisted of: Initial vital signs his blood pressure of 142/99, heart rate of 74, respiratory of 18, temperature of 98.0 Fahrenheit oral pulse ox of 96% room air. Initial white blood cells 13.9 thousand, hematocrit is 53.6 and predominantly neutrophilic otherwise the CBC with differential is unremarkable. Initial potassium 6.1 and the repeat is 5.1. Sodium is 136, creatinine is 1.3 5 repeat is 1.39, serum glucose is 242 and repeated is 259. Calcium is 9.8, magnesium 2.2, AST of 6 on 16 repeat is 1293 while the ALTs to 59 repeated 322. Ammonia level is 12. CK level is 45,732. Lipid panel is triglyceride of 142, cholesterol 149, LDLs 87, HDL is 33. Hoff virus PCR is detected positive Urinalysis seems possible suggestive of urinary tract infection CT of the head is reported right internal carotid artery is somewhat hyperdense would recommend CT angiography of [place] of [place] exclude internal thrombus. No acute intracranial hemorrhage or mass effect. Degenerative and nonspecific white matter changes most typical remote ischemia. Slightly greater central component ventricle dilation can be associated with normal pressure hydrocephalus correlate clinically. Personally reviewed the CT of the head there is no acute or subacute ischemia and there is no proximal hemorrhage. CT Cervical spine is reported as Severe multilevel degenerative disc disease with no acute fracture. I personally contacted the ED physician yesterday and notified the the ED to change from CT angiography of the neck too CT angiography of the head and neck and an change the order from routine to more urgent. CT angiography of the head and neck is reported as negative. X-ray of the right shoulder is reported as finding suspicious for hairline fracture nondisplaced distal right clavicle. Correlate for soft tissue edema. Otherwise the rest of the x-ray of the right upper extremity was negative for fracture reported. As a result in the ED the patient was found to have right forearm compartment syndrome and the was taken to surgery on 03/21/21. Also patient had acute rhabdomyolysis secondary to injury and had hyperkalemia due to rhabdo as well as acute kidney injury. Review of Systems Review of system: The 12 point system was reviewed and apparent positive and negative per HPI. Past Medical History Past Medical History: Diabetes Mellitus Additional Past Medical History / Comment(s): guillian-barre syndrome, parkinsons, rt. shoulder rotator cuff repair, lasic eye surgery, L4-L5 laporoscopy History of Any Multi-Drug Resistant Organisms: None Reported Past Surgical History: Back Surgery Past Psychological History: No Psychological Hx Reported Smoking Status: Never smoker Past Alcohol Use History: None Reported Past Drug Use History: None Reported Medications and Allergies Home Medications Medication Instructions Recorded Confirmed Type Aspirin EC [Ecotrin Low Dose] 81 mg PO DAILY 10/01/20 03/21/21 History Carbidopa-Levodopa 25-100 mg 1.5 tab PO TID 10/01/20 03/21/21 History [Sinemet 25-100 mg] Levothyroxine Sodium [Synthroid] 150 mcg PO DAILY 10/01/20 03/21/21 History Multivitamins, Thera [Multivitamin 1 tab PO DAILY 10/01/20 03/21/21 History (formulary)] Pregabalin [Lyrica] 150 mg PO TID 10/01/20 03/21/21 History Tamsulosin HCl [Flomax] 0.4 mg PO DAILY 10/01/20 03/21/21 History metFORMIN HCL [Glucophage] 1,000 mg PO BID 10/01/20 03/21/21 History Allergies Allergy/AdvReac Type Severity Reaction Status Date / Time Sulfa (Sulfonamide Allergy Unknown Verified 03/21/21 15:47 Antibiotics) Physical Examination - Vital Signs Vital Signs: Vital Signs Temp Pulse Pulse Pulse Resp BP BP 03/22/21 08:27 03/22/21 04:00 97.5 F L 107 H 16 92/86 03/22/21 00:00 97 F L 107 H 18 108/76 03/21/21 20:00 96.7 F L 110 H 18 98/72 03/21/21 17:41 92 18 110/78 03/21/21 17:26 83 16 122/65 03/21/21 17:11 86 18 112/84 03/21/21 16:56 97.6 F 88 16 140/88 03/21/21 15:10 98.9 F 63 16 174/80 03/21/21 14:48 82 18 147/99 03/21/21 12:36 98 F 74 18 142/99 Pulse Ox 03/22/21 08:27 95 03/22/21 04:00 96 03/22/21 00:00 95 03/21/21 20:00 96 03/21/21 17:41 96 03/21/21 17:26 97 03/21/21 17:11 98 03/21/21 16:56 98 03/21/21 15:10 97 03/21/21 14:48 95 03/21/21 12:36 96 Intake and Output 03/21/21 03/22/21 03/22/21 22:59 06:59 14:59 Intake Total 1950 240 Output Total 25 300 Balance 1924 Intake: IV 1950 Oral 240 Output: Drainage 200 Right Arm 200 Urine 100 Estimated Blood Loss 25 Other: Voiding Method Urinal Urinal # Voids 1 Weight 74.843 kg GENERAL: The patient is lying in bed and is in moderate acute distress. CHEST: The heart rate is regular rate rhythm. No murmurs to auscultation. No carotid bruit bilaterally. LUNG: Clear to auscultation bilaterally no wheezing noted throughout. Not labored breathing. ABDOMEN/GI: Bowel sounds present in all 4 quadrants. No tenderness to palpation throughout. INTEGUMENTARY: Has significant edema of entire right upper extremity. NEUROLOGICAL: Higher mental function: The patient is drowsy but is awakeable to voice, Is oriented to self, place and time. Patient is following simple commands. No aphasia and no neglect. Cranial nerves: The pupils are round, equal and reactive to light. Visual pollard are full to confrontation throughout. Extraocular movement is intact no nystagmus is noted. Facial sensation is normal to touch throughout. The facial strength is normal throughout. Tongue is midline and moved [id number] without any difficulty. No dysarthria is noted. Could not assess shoulder assessment because of pain. Motor: Gait is deferred because of his condition. The strength is 0/5 and was in pain trying to moving his arm. Otherwise is able to lift all extremities above gravity. Has significant edema of entire right upper extremity. Sensation: Unable to assess because of his cooperation. Reflexes (right/left): 1+ throughout except unable to perform right upper because of pain and significant edema. Plantars are mute bilaterally. Results - Laboratory Findings CBC and BMP: 03/22/21 12:28 03/22/21 11:04 Abnormal Lab Findings: Abnormal Labs 03/21/21 03/21/21 03/21/21 13:08 13:08 13:08 WBC 13.9 H Hct 53.6 H Neutrophils # 12.2 H Lymphocytes # 0.7 L Sodium 136 L Potassium 6.1 H* Carbon Dioxide 19 L Creatinine 1.35 H Glucose 242 H POC Glucose (mg/dL) Plasma Lactic Acid Be 7.1 H* AST 660 H ALT 259 H Creatine Kinase 38613 H* HDL Cholesterol Urine RBC Urine WBC Amorphous Sediment Urine Bacteria Urine Mucus Coronavirus (PCR) 03/21/21 03/21/21 03/21/21 15:20 15:25 15:25 WBC Hct Neutrophils # Lymphocytes # Sodium 135 L Potassium Carbon Dioxide 21 L Creatinine 1.39 H Glucose 259 H POC Glucose (mg/dL) Plasma Lactic Acid Be 6.9 H* AST 1293 H ALT 322 H Creatine Kinase HDL Cholesterol Urine RBC Urine WBC Amorphous Sediment Urine Bacteria Urine Mucus Coronavirus (PCR) Detected A 03/21/21 03/21/21 03/21/21 18:34 18:34 19:57 WBC Hct Neutrophils # Lymphocytes # Sodium Potassium Carbon Dioxide Creatinine Glucose POC Glucose (mg/dL) 273 H Plasma Lactic Acid Be 4.5 H* AST ALT Creatine Kinase HDL Cholesterol 33.00 L Urine RBC Urine WBC Amorphous Sediment Urine Bacteria Urine Mucus Coronavirus (PCR) 03/21/21 03/22/21 03/22/21 21:54 00:48 03:36 WBC Hct Neutrophils # Lymphocytes # Sodium Potassium Carbon Dioxide Creatinine Glucose POC Glucose (mg/dL) Plasma Lactic Acid Be 4.7 H* 4.1 H* AST ALT Creatine Kinase HDL Cholesterol Urine RBC 56 H Urine WBC >182 H Amorphous Sediment Few H Urine Bacteria Many H Urine Mucus Many H Coronavirus (PCR) 03/22/21 04:45 WBC Hct Neutrophils # Lymphocytes # Sodium Potassium Carbon Dioxide Creatinine Glucose POC Glucose (mg/dL) Plasma Lactic Acid Be 3.3 H* AST ALT Creatine Kinase HDL Cholesterol Urine RBC Urine WBC Amorphous Sediment Urine Bacteria Urine Mucus Coronavirus (PCR) Assessment and Plan Assessment: Right forearm compartment syndrome status post fasciotomy on 03/21/2021 (as result him rolling over while sleeping) Acute rhabdomyolysis secondary due to injury Acute COVID-19 infection Altered mental status due to toxic-metabolic encephalopathy (MINI, elevated LFT's, Dilaudid use). Acute kidney injury due to fall Possible acute urinary tract infection suspicious for hairline fracture nondisplaced distal right clavicle reported on x-ray: Likely from from his trauma Hyperkalemia secondary due to rhabdomyolysis---resolved Normal CTA of head and neck reported (initially CT head was reported as right internal carotid artery is somewhat hyperdense but that was overcalled). 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 Plan: I ordered a repeat CK level. Stroke is not suspected at this time, therefore cancelled MRI Brain (as well cannot get MRI because of surgical procedure). He is restarted on his home dose of Sinemet 34548 1-1/2 tablet 3 times a day. I start the patient on vitamin B12 1000 g daily since he has low vitamin B12 from October 2020 Infection disease is consulted for wound care PT, OT are consulted We'll defer the rest of the medical management to the primary team Upon discharge the patient needs to follow-up with his neurologist (Dr. Erica Tamayo) within 1-2 weeks. Recommend further investigation whether the patient truly has normal pressure hydrocephalus as outpatient. The plan is discussed with the patient's nurse. Thank you for the consultation Justin Wade M.D. Neuro-Hospitaist Time with Patient: Greater than 30
[2021-03-22 11:58] LABS: Glucose,Whole Blood 207 mg/dL (75-99)
[2021-03-22 12:02] LABS: Calcium 7.2 mg/dL (8.4-10.2); Total Bilirubin 0.8 mg/dL (0.2-1.3)
[2021-03-22 12:17] LABS: Potassium 6.5 mmol/L (3.5-5.1)
[2021-03-22 12:18] LABS: Albumin 2.6 g/dL (3.5-5.0); Total Protein 5.6 g/dL (6.3-8.2)
[2021-03-22 13:00] LABS: Basophils % (A) 0 %; Eosinophils % (A) 0 %; HCT 49.8 % (39.0-53.0); HGB 15.8 gm/dL (13.0-17.5); Hypochromasia Slight; Lymphocytes # (A) 1.1 k/uL (1.0-4.8); Lymphocytes % (A) 9 %; MCH 30.6 pg (25.0-35.0); MCHC 31.7 g/dL (31.0-37.0); MCV 96.5 fL (80.0-100.0); Monocytes # (A) 1.2 k/uL (0-1.0); Monocytes % (A) 10 %; Neutrophils # (A) 9.4 k/uL (1.3-7.7); Neutrophils % (A) 78 %; Platelet Count 170 k/uL (150-450); RBC 5.17 m/uL (4.30-5.90); RDW 14.4 % (11.5-15.5)
[2021-03-22] MEDS: CYANOCOBALAMIN 500 MCG TAB PO SCH (15:36)
[2021-03-22] MEDS ORDERED: DEXTROSE 50% SYRINGE 50 ML IVP STA (16:03)
[2021-03-22] MEDS ORDERED: SODIUM POLYSTYRENE SULFONATE 15 GM/60 ML BOTTLE PO STA (16:03)
[2021-03-22] MEDS ORDERED: INSULIN REGULAR 100 UNIT/ML VIAL (IV) IV ONE (16:15)
--- NOTE | 2021-03-22 16:16 | P.PN ---
Subjective Progress Note Date: 03/22/21 70 years old male patient of Dr. Pennington with past medical history of Parkinson's, diabetes with diabetic neuropathy, hypothyroidism, calendar in 2007, chronic back pain with lumbar surgery 25 years ago comes in after he was found pinned in between his bed and the nightstand. Patient stated that he was rolling in his bed when he got stuck. According to the daughter bedside it appears patient has been stuck there for 2 days since he has not taken his medication. Patient was unable to reach anybody. Since nobody heard anything from the patient family called neighbors and friends to check on him. Patient was alert and was found suspended and there in between his bed and nightstand and unable to move himself from this position. Patient was released from his position and brought to the hospital. He is unable to move his right upper extremity with significant bruising and ecchymosis involving the forearm and the hand. Patient has no mobility involving his right arm , with contracture involving his hand.. Patient denies dizziness, confusion or recent falls. He states he was doing well and had no fever, chills, polyuria increased frequency or concern for sepsis. He did see a urologist at [facility] for his recurrent UTIs in January and was found to have a urine infection. Patient was admitted in in October for recurrent falls and UTI sepsis with E. coli resistant to fluoroquinolones. Patient is fairly active at baseline and goes to gym 4 times a week. Patient had a detailed workup including MRI, EEG and echocardiogram on his admission in October, echocardiogram suggest moderate concentric left ventricle hypertrophy with EF 55-60% on the valves with mild mitral and tricuspid regurgitation. Right ventricle pressures were less than 35mm. Vitals reviewed patient is afebrile pulse 63 respiratory rate 16 blood pressure 147/99 oxybutynin 95% on room air. Labs reviewed WBC 13.9 hemoglobin 17.4 sodium 136 potassium 6.1 bicarbonate 19 creatinine 1.35 and blood sugar 242 lactic acid 7.1 AST 660 ALT 259 with CK levels [id number] troponin [address] head and cervical spine showed right ICA hyperdense and recommended CT angiography to: For list exclude internal thrombosis no acute intracranial hemorrhage or mass effect degenerative and nonspecific white matter changes most typical remote ischemia slightly gait greater central competent of ventricle dilation can be associated with normal pressure hydrocephalus severe multilevel degenerative disc disease no fracture X-rays humerus was negative for fracture or dislocation. X-ray forearm suggestive no acute fracture diffuse soft tissue edema suggestive of posttraumatic or postinfectious edema shoulder x-ray on the right shows hairline fracture nondisplaced distal right clavicle with soft tissue edema. Chest x-ray with right lower lobe A to lactose is only infiltrated nodular density right lung may be related to superimposed structure short-term follow-up with repeat chest x-ray recommended. EKG suggested normal sinus rhythm with T-wave abnormality noted x-ray hand no fracture or dislocation but patient's patient's were flexed extensive soft tissue swelling noted 03/22: She and has been hypotensive and ordered for 2 more liters of IV fluid bolus. Blood culture and urine culture in progress. Patient has been afebrile, temperature actually on the lower side 96.7-97.5. Heart rate 78, blood pressure 110/71 after fluids, pulse ox 93% on 4 L nasal cannula. Repeat blood work reveals WBC 12.0. Sodium 133, potassium 6.5, chloride 112, CO2 10, BUN 31 and creatinine 2.65. Blood sugars running between 207 and 221. Repeat lactic acid 2.7. CK 60,158. AST 1424, ALT 87. Kayexalate 30 g, calcium gluconate 1 g with 10 units of regular insulin and D50 50 ML's all ordered. Consult added for nephrology. Orthopedics is planning on returning to or tomorrow to remove wound VAC and assess wounds and possible new wound VAC placement, possible closure partial closure of the wounds. Patient also followed by neurology and infectious disease. Patient is currently on 2 g every 12 hours ROS Constitutional: Denies chills, Denies fever, Denies lethargy, Denies malaise, Denies poor appetite, Denies weakness, Denies weight loss Eyes: denies decreased vision, denies diplopia, denies discharge, denies pain Ears: deny: decreased hearing Ears, nose, mouth and throat: Denies dental pain, Denies headache, Denies nasal discharge, Denies nose pain Cardiovascular: Denies chest pain, Denies decreased exercise tolerance, Denies edema, Denies high blood pressure, Denies irregular heart beat, Denies palpitations, Denies paroxysmal nocturnal dyspnea, Denies rapid heart beat, Denies shortness of breath Respiratory: Denies congestion, Denies cough, Denies cough with sputum, Denies dyspnea, Denies home oxygen, Denies wheezing Gastrointestinal: Denies abdominal pain, Denies change in bowel habits, Denies coffee ground emesis, Denies heartburn, Denies hematemesis, Denies hematochezia, Denies loss of appetite, Denies nausea, Denies vomiting Genitourinary: Denies dysuria, Denies flank pain, Denies kidney stones, Denies menorrhagia, Denies urgency, Denies urinary frequency Musculoskeletal: Denies gait dysfunction, Denies limitation of motion, Denies morning stiffness, Denies muscle cramps endorses contracture, swelling involving right upper extremity Integumentary: Denies rash, Denies wounds, Denies brittle nails, Denies change in hair/nails, Denies darkening of skin Neurological: Denies balance difficulties, Denies change in speech, Denies double vision, Denies gait dysfunction, Denies loss of vision, Denies motor disturbance, Denies numbness, Denies paralysis, induces theER and tingling involving the dorsal aspect of foot Denies seizures Psychiatric: Denies anxiety, Denies depression Endocrine: Denies excessive sweating, Denies excessive thirst, Denies high blood sugars, Denies palpitations Hematologic/Lymphatic: Denies easy bruising, Denies lymphadenopathy Physical exam - Constitutional General appearance: Alert and oriented 3 cooperative, no acute distress, obese - EENT Eyes: anicteric sclerae, PERRLA, normal appearance ENT: hearing grossly normal - Neck Neck: no lymphadenopathy, normal ROM, no other, no rigidity, no stridor, no thyromegaly - Respiratory Respiratory: bilateral: CTA, negative: diminished, dullness, rales, rhonchi - Cardiovascular Rhythm: regular Heart sounds: normal: S1, S2 Abnormal Heart Sounds: no systolic murmur, no diastolic murmur, no rub, no S3 Gallop, no S4 Gallop, no click, no other - Gastrointestinal General gastrointestinal: normal bowel sounds, soft nontender - Integumentary Integumentary: Significant bruising and ecchymosis involving right upper extremity involving the hand, forearm and arm with significant swelling. Patient has no movement of the right arm. - Neurologic Neurologic: 0/5 on flexion/extension /internal rotation and external rotation involving right upper extremity, lack of sensation involving the right forearm. Sensation intact in the upper arm. tingling and numbness involving the dorsal aspect of both feet - Musculoskeletal Musculoskeletal: gait not assessed, , right upper extremity with no active movement, hand in flexion with diffuse swelling involving the digits, wrist, forearm and upper arm and axilla. Nontender to touch peripheral pulses are diminished involving the right upper extremity. No mobility involving shoulder, elbow or wrist or fingers. Lack of sensation involving the right upper extremity. Passive shoulder movement present with no significant pain. No significant pain involving forearm or hand. capillary refill close to 2 seconds. Peripheral pulses are diminished compared to the other extremity. - Psychiatric Psychiatric: A&O x's 3, appropriate affect Assessment and plan Right forearm compartment syndrome -Status post dorsal and volar fasciotomies with Dr. Paez, 03/21. Vascular surgery Dr. Gerardo is consulted -Patient is cleared for surgery but carries a risk of 2.4% for any acute cardiac event involving cardiac nonfatal MN or nonfatal cardiac arrest. His surgery is eminent to save his limb. Patient echocardiogram from October 2020 denies any history of previous MN with ejection fraction of 55-60%. - Repeat surgical intervention scheduled for 03/23 Acute rhabdomyolysis secondary to injury -Status post 2 L IV fluids. Continue IV fluids at 130 mL per hour -Repeat CK tomorrow Distal nondisplaced right clavicle fracture Acute COVID19 infection - Continue isolation Acute metabolic encephalopathy secondary to sepsis and acute kidney injury, rhabdomyolysis, Dilaudid Consult with neurology appreciated Stroke is not suspected Vitamin B12 1000 g daily added by neurology Hyperkalemia secondary to Rhabdomyolysis - Repeat calcium gluconate 1 g, 10 units of regular insulin and 50 ML's of D50. - Consult nephrology - EKG suggestive of T-wave changes Acute lactic acidosis secondary to hypovolemia - Repeat lactic acid - Status post 2 L IV fluids - Continue IV fluids at 1 30 mL/h. Patient may need further boluses Acute kidney injury secondary to rhabdomyolysis secondary to ATN - Continue IV fluids with normal saline at 130 mL per hour - Baseline creatinine 0.8 -Avoid nephrotoxic agent -Hold metformin -Consult nephrology Acute transaminitis - Liver enzymes have worsened since last admission -Continue perfusion with IV fluids Type II uncontrolled diabetes - Last A1c 7.2 - Hold metformin - Continue insulin sliding Scale and Lantus at 5 units at at bedtime History of UTI - Would recommend urinalysis as patient was septic in October 2020 and is currently undergoing treatment with urologist according to the daughter bedside. History of Sepsis secondary to acute urinary tract infection In October 2020 - Unclear if patient fall was a result of confusion. Infectious metabolic encephalopathy - resolved - CT head and neck suggestive of hyperdense involving right carotid. We will evaluate with CT angiogram head and neck.. Also mentioned normal pressure hydrocephalus on the CAT scan though MRI was negative for hydrocephalus in October Frequent falls possibly related to worsening Parkinson's, exacerbated by sepsis. - Does PT as outpatient. We'll evaluate for rehab once patient is stableDiabetic polyneuropathy. Lyrica 225 mg twice daily Parkinson's. -Continue Sinemet 251 101-1/2 3 times daily. Hypothyroidism. -Continue levothyroxine 150 Scott grams daily. Guillain-[place] syndrome in 2007. Benign prostatic hypertrophy. -Continue Flomax or 0.4 mg daily. GI prophylaxis. Protonix. DVT prophylaxis. Heparin subcu. Thank you for the consult and I'll be happy to assist in patient's medical needs while patient is in the hospital DISCHARGE PLAN Home, to be determined. PT and OT consults. Impression and plan of care have been directed as dictated by the signing physician. Sophie Hitchcock nurse practitioner acting as scribe for signing physician. Objective - Vital Signs Vital signs: Vital Signs Temp 97.5 F L 03/22/21 04:00 Pulse 107 H 03/22/21 04:00 Resp 16 03/22/21 04:00 BP 92/86 03/22/21 04:00 Pulse Ox 95 03/22/21 08:27 Intake & Output 03/21/21 03/22/21 03/22/21 18:59 06:59 18:59 Intake Total 1950 240 360 Output Total 25 300 Balance 1925 -60 360 Weight 74.843 kg Intake: IV 1950 Oral 240 360 Output: Drainage 200 Right Arm 200 Urine 100 Estimated Blood Loss 25 Other: Voiding Method Urinal # Voids 1 - Labs CBC & Chem 7: 03/22/21 12:28 03/22/21 11:04 Labs: Abnormal Lab Results - Last 24 Hours (Table) 03/21/21 03/21/21 03/21/21 Range/Units 13:08 13:08 13:08 WBC 13.9 H (3.8-10.6) k/uL Hct 53.6 H (39.0-53.0) % Neutrophils # 12.2 H (1.3-7.7) k/uL Lymphocytes # 0.7 L (1.0-4.8) k/uL Sodium 136 L (137-145) mmol/L Potassium 6.1 H* (3.5-5.1) mmol/L Carbon Dioxide 19 L (22-30) mmol/L Creatinine 1.35 H (0.66-1.25) mg/dL Glucose 242 H (74-99) mg/dL POC Glucose (mg/dL) (75-99) mg/dL Hemoglobin A1c (0.0-6.0) % Plasma Lactic Acid Be 7.1 H* (0.7-2.0) mmol/L AST 660 H (17-59) U/L ALT 259 H (4-49) U/L Creatine Kinase 43111 H* (55-170) U/L HDL Cholesterol (40.00-60.00) mg/dL Urine RBC (0-5) /hpf Urine WBC (0-5) /hpf Amorphous Sediment (None) /hpf Urine Bacteria (None) /hpf Urine Mucus (None) /hpf Coronavirus (PCR) (Not Detectd) 03/21/21 03/21/21 03/21/21 Range/Units 13:08 15:20 15:25 WBC (3.8-10.6) k/uL Hct (39.0-53.0) % Neutrophils # (1.3-7.7) k/uL Lymphocytes # (1.0-4.8) k/uL Sodium 135 L (137-145) mmol/L Potassium (3.5-5.1) mmol/L Carbon Dioxide 21 L (22-30) mmol/L Creatinine 1.39 H (0.66-1.25) mg/dL Glucose 259 H (74-99) mg/dL POC Glucose (mg/dL) (75-99) mg/dL Hemoglobin A1c 8.3 H (0.0-6.0) % Plasma Lactic Acid Be (0.7-2.0) mmol/L AST 1293 H (17-59) U/L ALT 322 H (4-49) U/L Creatine Kinase (55-170) U/L HDL Cholesterol (40.00-60.00) mg/dL Urine RBC (0-5) /hpf Urine WBC (0-5) /hpf Amorphous Sediment (None) /hpf Urine Bacteria (None) /hpf Urine Mucus (None) /hpf Coronavirus (PCR) Detected A (Not Detectd) 03/21/21 03/21/21 03/21/21 Range/Units 15:25 18:34 18:34 WBC (3.8-10.6) k/uL Hct (39.0-53.0) % Neutrophils # (1.3-7.7) k/uL Lymphocytes # (1.0-4.8) k/uL Sodium (137-145) mmol/L Potassium (3.5-5.1) mmol/L Carbon Dioxide (22-30) mmol/L Creatinine (0.66-1.25) mg/dL Glucose (74-99) mg/dL POC Glucose (mg/dL) (75-99) mg/dL Hemoglobin A1c (0.0-6.0) % Plasma Lactic Acid Be 6.9 H* 4.5 H* (0.7-2.0) mmol/L AST (17-59) U/L ALT (4-49) U/L Creatine Kinase (55-170) U/L HDL Cholesterol 33.00 L (40.00-60.00) mg/dL Urine RBC (0-5) /hpf Urine WBC (0-5) /hpf Amorphous Sediment (None) /hpf Urine Bacteria (None) /hpf Urine Mucus (None) /hpf Coronavirus (PCR) (Not Detectd) 03/21/21 03/21/21 03/22/21 Range/Units 19:57 21:54 00:48 WBC (3.8-10.6) k/uL Hct (39.0-53.0) % Neutrophils # (1.3-7.7) k/uL Lymphocytes # (1.0-4.8) k/uL Sodium (137-145) mmol/L Potassium (3.5-5.1) mmol/L Carbon Dioxide (22-30) mmol/L Creatinine (0.66-1.25) mg/dL Glucose (74-99) mg/dL POC Glucose (mg/dL) 273 H (75-99) mg/dL Hemoglobin A1c (0.0-6.0) % Plasma Lactic Acid Be 4.7 H* 4.1 H* (0.7-2.0) mmol/L AST (17-59) U/L ALT (4-49) U/L Creatine Kinase (55-170) U/L HDL Cholesterol (40.00-60.00) mg/dL Urine RBC (0-5) /hpf Urine WBC (0-5) /hpf Amorphous Sediment (None) /hpf Urine Bacteria (None) /hpf Urine Mucus (None) /hpf Coronavirus (PCR) (Not Detectd) 03/22/21 03/22/21 03/22/21 Range/Units 03:36 04:45 06:08 WBC (3.8-10.6) k/uL Hct (39.0-53.0) % Neutrophils # (1.3-7.7) k/uL Lymphocytes # (1.0-4.8) k/uL Sodium (137-145) mmol/L Potassium (3.5-5.1) mmol/L Carbon Dioxide (22-30) mmol/L Creatinine (0.66-1.25) mg/dL Glucose (74-99) mg/dL POC Glucose (mg/dL) 221 H (75-99) mg/dL Hemoglobin A1c (0.0-6.0) % Plasma Lactic Acid Be 3.3 H* (0.7-2.0) mmol/L AST (17-59) U/L ALT (4-49) U/L Creatine Kinase (55-170) U/L HDL Cholesterol (40.00-60.00) mg/dL Urine RBC 56 H (0-5) /hpf Urine WBC >182 H (0-5) /hpf Amorphous Sediment Few H (None) /hpf Urine Bacteria Many H (None) /hpf Urine Mucus Many H (None) /hpf Coronavirus (PCR) (Not Detectd)
[2021-03-22] MEDS ORDERED: CALCIUM GLUCONATE 1 GM in SODIUM CHLORIDE 0.9% 100 ML IVPB ONE (16:30)
[2021-03-22] MEDS ORDERED: SODIUM BICARB 8.4% 50 ML SYR (1 MEQ/ML) IV STA ×3 (16:42→21:32)
[2021-03-22] MEDS ORDERED: SODIUM ZIRCONIUM CYCLOSILICATE 10 GM PACKET PO ONE (16:45)
[2021-03-22 16:52] LABS: Glucose,Whole Blood 217 mg/dL (75-99)
--- NOTE | 2021-03-22 17:53 | XR ---
EXAMINATION TYPE: XR chest 1V portable DATE OF EXAM: 03/22/2021 5:21 PM COMPARISON:Chest radiograph from one day prior. Radiograph 10/01/2020. CLINICAL INDICATION:Male, 70 years old with history of shortness of breath; TECHNIQUE: Frontal view of the chest. FINDINGS: Lungs/Pleura: Patient is semiupright. The lung bases are grossly unchanged from one day prior. Serum of the right upper lung is in fact relate to patient's tubing. There is no evidence of pleural effusi on, focal consolidation, or pneumothorax. Pulmonary vascularity: Pulmonary vascular congestion. Heart/mediastinum: Cardiomediastinal silhouette is enlarged and stable. Musculoskeletal: No acute osseous pathology. IMPRESSION: 1. Basilar atelectasis in the lung bases. Not significantly changed from radiograph from 10/01/2020. 2. Pulmonary vascular congestion. Correlate with serum BNP for congestive heart failure.
--- NOTE | 2021-03-22 18:29 | P.PN ---
Subjective Progress Note Date: 03/22/21 patient is seen and examined He underwent right upper extremity fasciotomy. He remains unable to move his right upper extremity and no sensory Objective - Vital Signs Vital signs: Vital Signs Temp 97.4 F L 03/22/21 12:00 Pulse 78 03/22/21 14:00 Resp 16 03/22/21 14:00 BP 110/71 03/22/21 12:00 Pulse Ox 93 L 03/22/21 12:00 Intake & Output 03/21/21 03/22/21 03/22/21 18:59 06:59 18:59 Intake Total 1849 754 9454 Output Total 25 300 600 Balance 1925 -60 3890 Weight 74.843 kg Intake: IV 1950 Intake, IV Titration 3090 Amount Sodium Chloride 0.9% 1, 1040 000 ml @ 130 mls/hr IV . Q7H42M [facility] Rx#:[id number] Sodium Chloride 0.9% 2, 2000 000 ml @ 999 mls/hr IV . Q2H1M ONE Rx#:[id number] ceFAZolin 2 gm In Sodium 50 Chloride 0.9% 50 ml @ 100 mls/hr IVPB Q8HR [facility] Rx# :[id number] Oral 240 1400 Output: Drainage 200 Right Arm 200 Urine 100 600 Uretheral (Gerardo) 300 Estimated Blood Loss 25 Other: Voiding Method Urinal Urinal # Voids 1 - Exam Gen. a pleasant cooperative male in no acute distress. HEENT is normal cephalic, atraumatic, extraocular motion intact. Heart appears regular this time. Lungs are clear bilaterally. Abdomen is soft, obese, nontender. There is some areas of pressure ulcers and pressure deformities of his chest wall and right upper arm. He has normal motor function of his lower extremities. Normal left upper extremity. Right upper extremitycontinues to be swollen. Right forearm fasciotomy with wound VAC. Multiphasic radial and ulnar, as well as Palmar flow noted. Cyanotic changes to the hand, unable to move. - Labs CBC & Chem 7: 03/22/21 12:28 03/22/21 11:04 Labs: Abnormal Lab Results - Last 24 Hours (Table) 03/21/21 03/21/21 03/21/21 Range/Units 13:08 18:34 18:34 WBC (3.8-10.6) k/uL Neutrophils # (1.3-7.7) k/uL Monocytes # (0-1.0) k/uL Sodium (137-145) mmol/L Potassium (3.5-5.1) mmol/L Chloride (98-107) mmol/L Carbon Dioxide (22-30) mmol/L BUN (9-20) mg/dL Creatinine (0.66-1.25) mg/dL Glucose (74-99) mg/dL POC Glucose (mg/dL) (75-99) mg/dL Hemoglobin A1c 8.3 H (0.0-6.0) % Plasma Lactic Acid Be 4.5 H* (0.7-2.0) mmol/L Calcium (8.4-10.2) mg/dL AST (17-59) U/L ALT (4-49) U/L Creatine Kinase (55-170) U/L Total Protein (6.3-8.2) g/dL Albumin (3.5-5.0) g/dL HDL Cholesterol 33.00 L (40.00-60.00) mg/dL Urine RBC (0-5) /hpf Urine WBC (0-5) /hpf Amorphous Sediment (None) /hpf Urine Bacteria (None) /hpf Urine Mucus (None) /hpf 03/21/21 03/21/21 03/22/21 Range/Units 19:57 21:54 00:48 WBC (3.8-10.6) k/uL Neutrophils # (1.3-7.7) k/uL Monocytes # (0-1.0) k/uL Sodium (137-145) mmol/L Potassium (3.5-5.1) mmol/L Chloride (98-107) mmol/L Carbon Dioxide (22-30) mmol/L BUN (9-20) mg/dL Creatinine (0.66-1.25) mg/dL Glucose (74-99) mg/dL POC Glucose (mg/dL) 273 H (75-99) mg/dL Hemoglobin A1c (0.0-6.0) % Plasma Lactic Acid Be 4.7 H* 4.1 H* (0.7-2.0) mmol/L Calcium (8.4-10.2) mg/dL AST (17-59) U/L ALT (4-49) U/L Creatine Kinase (55-170) U/L Total Protein (6.3-8.2) g/dL Albumin (3.5-5.0) g/dL HDL Cholesterol (40.00-60.00) mg/dL Urine RBC (0-5) /hpf Urine WBC (0-5) /hpf Amorphous Sediment (None) /hpf Urine Bacteria (None) /hpf Urine Mucus (None) /hpf 03/22/21 03/22/21 03/22/21 Range/Units 03:36 04:45 06:08 WBC (3.8-10.6) k/uL Neutrophils # (1.3-7.7) k/uL Monocytes # (0-1.0) k/uL Sodium (137-145) mmol/L Potassium (3.5-5.1) mmol/L Chloride (98-107) mmol/L Carbon Dioxide (22-30) mmol/L BUN (9-20) mg/dL Creatinine (0.66-1.25) mg/dL Glucose (74-99) mg/dL POC Glucose (mg/dL) 221 H (75-99) mg/dL Hemoglobin A1c (0.0-6.0) % Plasma Lactic Acid Be 3.3 H* (0.7-2.0) mmol/L Calcium (8.4-10.2) mg/dL AST (17-59) U/L ALT (4-49) U/L Creatine Kinase (55-170) U/L Total Protein (6.3-8.2) g/dL Albumin (3.5-5.0) g/dL HDL Cholesterol (40.00-60.00) mg/dL Urine RBC 56 H (0-5) /hpf Urine WBC >182 H (0-5) /hpf Amorphous Sediment Few H (None) /hpf Urine Bacteria Many H (None) /hpf Urine Mucus Many H (None) /hpf 03/22/21 03/22/21 03/22/21 Range/Units 11:04 11:45 12:28 WBC (3.8-10.6) k/uL Neutrophils # (1.3-7.7) k/uL Monocytes # (0-1.0) k/uL Sodium 133 L (137-145) mmol/L Potassium 6.5 H* (3.5-5.1) mmol/L Chloride 112 H (98-107) mmol/L Carbon Dioxide 10 L (22-30) mmol/L BUN 31 H (9-20) mg/dL Creatinine 2.65 H (0.66-1.25) mg/dL Glucose 244 H (74-99) mg/dL POC Glucose (mg/dL) 207 H (75-99) mg/dL Hemoglobin A1c (0.0-6.0) % Plasma Lactic Acid Be 2.7 H* (0.7-2.0) mmol/L Calcium 7.2 L (8.4-10.2) mg/dL AST 1424 H (17-59) U/L ALT 87 H (4-49) U/L Creatine Kinase (55-170) U/L Total Protein 5.6 L (6.3-8.2) g/dL Albumin 2.6 L (3.5-5.0) g/dL HDL Cholesterol (40.00-60.00) mg/dL Urine RBC (0-5) /hpf Urine WBC (0-5) /hpf Amorphous Sediment (None) /hpf Urine Bacteria (None) /hpf Urine Mucus (None) /hpf 03/22/21 03/22/21 03/22/21 Range/Units 12:28 12:28 16:47 WBC 12.0 H (3.8-10.6) k/uL Neutrophils # 9.4 H (1.3-7.7) k/uL Monocytes # 1.2 H (0-1.0) k/uL Sodium (137-145) mmol/L Potassium (3.5-5.1) mmol/L Chloride (98-107) mmol/L Carbon Dioxide (22-30) mmol/L BUN (9-20) mg/dL Creatinine (0.66-1.25) mg/dL Glucose (74-99) mg/dL POC Glucose (mg/dL) 217 H (75-99) mg/dL Hemoglobin A1c (0.0-6.0) % Plasma Lactic Acid Be (0.7-2.0) mmol/L Calcium (8.4-10.2) mg/dL AST (17-59) U/L ALT (4-49) U/L Creatine Kinase 37982 H* (55-170) U/L Total Protein (6.3-8.2) g/dL Albumin (3.5-5.0) g/dL HDL Cholesterol (40.00-60.00) mg/dL Urine RBC (0-5) /hpf Urine WBC (0-5) /hpf Amorphous Sediment (None) /hpf Urine Bacteria (None) /hpf Urine Mucus (None) /hpf Microbiology - Last 24 Hours (Table) 03/22/21 03:36 Urine Culture - Preliminary Urine,Voided Assessment and Plan Assessment: right upper extremity cyanotic changes, ischemia due to compression Right arm compartment syndromepost fasciotomy Plan: at this time no vascular intervention or workup is noted. I believe he does not have a palpable pulses Due to the significant edema that is continuing. He maintained appropriate capillary refill and multiphasic signaling. await further demarcation Time with Patient: Less than 30
[2021-03-22 18:30] LABS: Glucose,Whole Blood 257 mg/dL (75-99)
[2021-03-22] MEDS: DEXTROSE 5% IN WATER 1,000 ML with SODIUM BICARB (1 MEQ/ML) 150 ML IV SCH (20:30)
[2021-03-22 21:18] LABS: Glucose,Whole Blood 189 mg/dL (75-99)
--- NOTE | 2021-03-22 21:31 | P.CNPUL ---
History of Present Illness Consult date: 03/22/21 Requesting physician: Lalo Paez Reason for consult: other (Acute compartment syndrome of right forearm, acute rhabdomyolysis, acute kidney injury. Hypotension.) Chief complaint: Swelling and pain of right forearm with change in color History of present illness: This is a 70-year-old white male with history of Parkinson's disease, diabetes and diabetic neuropathy, hypothyroidism, chronic back pain, patient apparently fell, and he was found pinned in between his bed and the nightstand. Patient apparently was rolling in bed when he fell and he got stuck. And apparently he was stuck for 2 days has not taken any of his medication. He was unable to reach anyone. Neighbors came in to check on him, and he was noted to be stuck in between the bed and the nightstand, unable to move, patient was released by the neighbor, and brought into the hospital. Upon arrival to the hospital, suri parker was found to have a thickened swelling bruising ecchymosis of the right forearm and right hand. Seen by orthopedics on consultation, and he was diagnosed as having acute compartment syndrome involving the forearm and right hand. Patient underwent fasciotomy of the right arm shortly after he was seen in the emergency room, and this was done on 03/21/2021. The surgery was done by Dr. Paez, apparently patient had right forearm fasciotomies of 3 compartments volar, dorsal, and mobile wad. He should also had application of wound VAC with negative pressure and wound dressing to forearm fasciotomy wounds. Patient was seen by internal medicine on consultation, and today he was noted to have hyperkalemia, hypotension, worsening renal failure, acute kidney injury, worsening CPK, and clearly the patient is developing a picture of acute rhabdomyolysis and acute renal failure. Hence arrangements were made to transfer the patient to the ICU. And nephrology was consulted. I was notified about this patient shortly after he arrived to the ICU, he had no adequate venous access, apparently multiple nurses attempted to establish a peripheral IV access and the patient, and attempts were unsuccessful. Then I came in and evaluated the patient. I was able to establish a right femoral triple-lumen catheter, and a left brachial arterial line. And I recommended more fluids to be given, recommended more bicarb to be given, I also recommended close monitoring of his urine output, as well as his electrolytes, and recommended an ABG which is pending during my evaluation. Patient was noted to have WBC count of 12, hemoglobin of 15.8, potassium was 6.5, and his potassium was 5.1 yesterda y. Bicarb came down from 21-10 over the last 24 hours, BUN up from 18-31, creatinine up from 1.39-2.65 today, CPK went up from 45,000-60,000 today. Clearly the patient is developing a picture of acute rhabdomyolysis, and acute kidney injury. Nephrology is already on the case today, and recommended sodium bicarb drip, more fluids, and the patient is on antibiotics in the form of cefazolin. Review of Systems Constitutional: Negative. Eyes: Negative. Ears: Negative. Ears, negative. Cardiovascular: Negative. Respiratory: Negative. Gastrointestinal: Negative. Genitourinary: Negative. Musculoskeletal: As noted in HPI, patient presented with right arm swelling, and he does have history of chronic back pain. Integumentary: As noted in HPI, patient had skin discoloration of the forearm and right hand on presentation. Neurological: Negative. History of Parkinson's disease. Psychiatric: Negative. Endocrine: History of type 2 diabetes. Hematologic/Lymphatic: Negative. Past Medical History Past Medical History: Diabetes Mellitus Additional Past Medical History / Comment(s): guillian-barre syndrome, parkinsons, rt. shoulder rotator cuff repair, lasic eye surgery, L4-L5 laporoscopy History of Any Multi-Drug Resistant Organisms: None Reported Past Surgical History: Back Surgery Past Psychological History: No Psychological Hx Reported Smoking Status: Never smoker Past Alcohol Use History: None Reported Past Drug Use History: None Reported Medications and Allergies Home Medications Medication Instructions Recorded Confirmed Type Aspirin EC [Ecotrin Low Dose] 81 mg PO DAILY 10/01/20 03/21/21 History Carbidopa-Levodopa 25-100 mg 1.5 tab PO TID 10/01/20 03/21/21 History [Sinemet 25-100 mg] Levothyroxine Sodium [Synthroid] 150 mcg PO DAILY 10/01/20 03/21/21 History Multivitamins, Thera [Multivitamin 1 tab PO DAILY 10/01/20 03/21/21 History (formulary)] Pregabalin [Lyrica] 150 mg PO TID 10/01/20 03/21/21 History Tamsulosin HCl [Flomax] 0.4 mg PO DAILY 10/01/20 03/21/21 History metFORMIN HCL [Glucophage] 1,000 mg PO BID 10/01/20 03/21/21 History Allergies Allergy/AdvReac Type Severity Reaction Status Date / Time Sulfa (Sulfonamide Allergy Unknown Verified 03/21/21 15:47 Antibiotics) Physical Exam Vitals: Vital Signs Temp Pulse Pulse Resp BP BP Pulse Ox 03/22/21 20:00 101 H 13 96/49 94 L 03/22/21 19:45 99 12 81/60 93 L 03/22/21 19:30 99 11 L 79/69 93 L 03/22/21 19:15 100 11 L 72/44 95 03/22/21 19:00 100 11 L 104/70 95 03/22/21 18:45 99 11 L 104/70 94 L 03/22/21 18:30 98 11 L 95 03/22/21 18:25 101 H 10 L 97 03/22/21 16:00 97.5 F L 95 20 86/66 03/22/21 14:00 78 16 03/22/21 12:00 97.4 F L 78 16 101/71 93 L 03/22/21 08:27 95 03/22/21 08:00 97.2 F L 104 H 16 86/44 95 03/22/21 04:00 97.5 F L 107 H 16 92/86 96 03/22/21 00:00 97 F L 107 H 18 108/76 95 Intake and Output 03/22/21 03/22/21 03/22/21 06:59 14:59 22:59 Intake Total 240 4490 Output Total 300 640 Balance -60 4490 -640 Intake: Intake, IV Titration 3090 Amount Sodium Chloride 0.9% 1, 1040 000 ml @ 130 mls/hr IV . Q7H42M [facility] Rx#:[id number] Sodium Chloride 0.9% 2, 2000 000 ml @ 999 mls/hr IV . Q2H1M [facility] Rx#:[id number] ceFAZolin 2 gm In Sodium 50 Chloride 0.9% 50 ml @ 100 mls/hr IVPB Q8HR [facility] Rx# :[id number] Oral 240 1400 Output: Drainage 200 Right Arm 200 Urine 100 640 Uretheral (Gerardo) 300 Other: Voiding Method Urinal Urinal # Voids 1 Physical Exam: Revealed a 70-year-old white male on 2 L nasal cannula, in no distress. Head: Atraumatic, normocephalic. HEENT:[Neck is supple.] [No neck masses.] [No thyromegaly.] [No JVD.] Chest: [Symmetrical chest expansion, diminished breath sounds at the bases. Cardiac Exam: [Distant S1 and S2, no S3 gallop. No murmur. Abdomen: [Soft, nontender, no megaly, no rebound, no guarding, normal bowel sounds.] Extremities: Right upper extremity swelling is noted. Right forearm is status post fasciotomy in 3 different compartments, and wound VAC is noted with serosanguineous material oxygen into the wound VAC.. Patient had lack of sensation involving the right upper extremity. And lack of sensation in the right hand. Significant swelling is noted. Neurological Exam: Alert and oriented 3, no gross focal neurologic deficits. Psychiatric: Normal mood, affect and normal mental status examination. Musculoskeletal: As noted above with issues related to right forearm and right hand. Results - Laboratory Findings CBC and BMP: 03/22/21 12:28 03/22/21 11:04 PT/INR, D-dimer PT 11.6 sec (9.0-12.0) 03/21/21 13:08 INR 1.1 (<1.2) 03/21/21 13:08 Abnormal lab findings: Abnormal Labs 03/21/21 03/21/21 03/21/21 13:08 13:08 13:08 WBC 13.9 H Hct 53.6 H Neutrophils # 12.2 H Lymphocytes # 0.7 L Monocytes # Sodium 136 L Potassium 6.1 H* Chloride Carbon Dioxide 19 L BUN Creatinine 1.35 H Glucose 242 H POC Glucose (mg/dL) Hemoglobin A1c Plasma Lactic Acid Be 7.1 H* Calcium AST 660 H ALT 259 H Creatine Kinase 99436 H* Total Protein Albumin HDL Cholesterol Urine RBC Urine WBC Amorphous Sediment Urine Bacteria Urine Mucus Coronavirus (PCR) 03/21/21 03/21/21 03/21/21 13:08 15:20 15:25 WBC Hct Neutrophils # Lymphocytes # Monocytes # Sodium 135 L Potassium Chloride Carbon Dioxide 21 L BUN Creatinine 1.39 H Glucose 259 H POC Glucose (mg/dL) Hemoglobin A1c 8.3 H Plasma Lactic Acid Eb Calcium AST 1293 H ALT 322 H Creatine Kinase Total Protein Albumin HDL Cholesterol Urine RBC Urine WBC Amorphous Sediment Urine Bacteria Urine Mucus Coronavirus (PCR) Detected A 03/21/21 03/21/21 03/21/21 15:25 18:34 18:34 WBC Hct Neutrophils # Lymphocytes # Monocytes # Sodium Potassium Chloride Carbon Dioxide BUN Creatinine Glucose POC Glucose (mg/dL) Hemoglobin A1c Plasma Lactic Acid Be 6.9 H* 4.5 H* Calcium AST ALT Creatine Kinase Total Protein Albumin HDL Cholesterol 33.00 L Urine RBC Urine WBC Amorphous Sediment Urine Bacteria Urine Mucus Coronavirus (PCR) 03/21/21 03/21/21 03/22/21 19:57 21:54 00:48 WBC Hct Neutrophils # Lymphocytes # Monocytes # Sodium Potassium Chloride Carbon Dioxide BUN Creatinine Glucose POC Glucose (mg/dL) 273 H Hemoglobin A1c Plasma Lactic Acid Be 4.7 H* 4.1 H* Calcium AST ALT Creatine Kinase Total Protein Albumin HDL Cholesterol Urine RBC Urine WBC Amorphous Sediment Urine Bacteria Urine Mucus Coronavirus (PCR) 03/22/21 03/22/21 03/22/21 03:36 04:45 06:08 WBC Hct Neutrophils # Lymphocytes # Monocytes # Sodium Potassium Chloride Carbon Dioxide BUN Creatinine Glucose POC Glucose (mg/dL) 221 H Hemoglobin A1c Plasma Lactic Acid Be 3.3 H* Calcium AST ALT Creatine Kinase Total Protein Albumin HDL Cholesterol Urine RBC 56 H Urine WBC >182 H Amorphous Sediment Few H Urine Bacteria Many H Urine Mucus Many H Coronavirus (PCR) 03/22/21 03/22/21 03/22/21 11:04 11:45 12:28 WBC Hct Neutrophils # Lymphocytes # Monocytes # Sodium 133 L Potassium 6.5 H* Chloride 112 H Carbon Dioxide 10 L BUN 31 H Creatinine 2.65 H Glucose 244 H POC Glucose (mg/dL) 207 H Hemoglobin A1c Plasma Lactic Acid Be 2.7 H* Calcium 7.2 L AST 1424 H ALT 87 H Creatine Kinase Total Protein 5.6 L Albumin 2.6 L HDL Cholesterol Urine RBC Urine WBC Amorphous Sediment Urine Bacteria Urine Mucus Coronavirus (PCR) 03/22/21 03/22/21 03/22/21 12:28 12:28 16:47 WBC 12.0 H Hct Neutrophils # 9.4 H Lymphocytes # Monocytes # 1.2 H Sodium Potassium Chloride Carbon Dioxide BUN Creatinine Glucose POC Glucose (mg/dL) 217 H Hemoglobin A1c Plasma Lactic Acid Be Calcium AST ALT Creatine Kinase 97899 H* Total Protein Albumin HDL Cholesterol Urine RBC Urine WBC Amorphous Sediment Urine Bacteria Urine Mucus Coronavirus (PCR) 03/22/21 18:27 WBC Hct Neutrophils # Lymphocytes # Monocytes # Sodium Potassium Chloride Carbon Dioxide BUN Creatinine Glucose POC Glucose (mg/dL) 257 H Hemoglobin A1c Plasma Lactic Acid Be Calcium AST ALT Creatine Kinase Total Protein Albumin HDL Cholesterol Urine RBC Urine WBC Amorphous Sediment Urine Bacteria Urine Mucus Coronavirus (PCR) - Diagnostic Findings Chest x-ray: image reviewed (Chest x-ray is showing mostly by basilar atelectasis left more so than right. No evidence of congestive heart failure although the pulmonary vascular is a bit prominent.) Assessment and Plan Assessment: Impression: Acute rhabdomyolysis secondary to forearm injury and compartment syndrome, status post fasciotomy. Postoperative day #1. Acute kidney injury secondary to rhabdomyolysis. Acute lactic acidosis secondary to poor tissue perfusion of the right upper extremity and acute kidney injury. Acute hyperkalemia secondary to worsening metabolic acidosis, and worsening renal failure. History of type 2 diabetes. History of Parkinson's disease. History of chronic and recurrent urinary tract infections History of diabetic neuropathy History of Guillain-Hoffman syndrome in 2007. Recommendation: Agree with transferring the patient to the ICU. Agree with fluids and sodium bicarb drip. Patient was given 1 amp of bicarb while I was placing lines in this patient including a triple-lumen catheter and arterial line. Continue antibiotics. Continue GI prophylaxis and DVT prophylaxis. Resume home meds except hold any blood pressure medication, and hold metformin. Nephrology to see on consultation for his acute kidney injury. Continue to monitor closely his electrolytes, renal profile, and CPK. Prognosis is relatively guarded. We will continue to follow in the ICU. Critical care time is over 30 minutes, not including time spent on procedures. Time with Patient: Greater than 30
[2021-03-22] MEDS: HEPARIN SODIUM,PORCINE/PF 5,000 UNIT/0.5 ML SYRINGE SQ SCH (21:41)
[2021-03-22] MEDS: INSULIN DETEMIR (LEVEMIR) 100 UNIT/ML SYR SQ SCH (22:16)
[2021-03-22 22:26] LABS: ABG Base Excess 0.6 mmol/L; ABG HCO3 25 mmol/L (21-25); ABG Oxygen Saturation 97.9 % (94-97); ABG PCO2 38 mmHg (35-45); ABG PH 7.42 (7.35-7.45); ABG PO2 92 mmHg (83-108); ABG TCO2 26 mmol/L (19-24); Allen Test Performed? Yes
--- NOTE | 2021-03-22 22:29 | OP ---
OPERATIVE REPORT OPERATIVE REPORT: Placement of right femoral triple-lumen catheter. PREOPERATIVE DIAGNOSIS: Acute compartment syndrome of right forearm and acute rhabdomyolysis with acute kidney injury. POSTOPERATIVE DIAGNOSIS: Acute compartment syndrome of right forearm and acute rhabdomyolysis with acute kidney injury. ANESTHESIA USED: Two mL of 1% lidocaine. PROCEDURE DESCRIPTION: The patient was placed in the supine position. The area of the right groin was prepared in a sterile fashion and drapes were applied. The area of the groin was locally anesthetized with lidocaine. Then the right femoral vein was cannulated easily, a guidewire was placed, and the area around the guidewire was dilated. Then a triple- lumen catheter was inserted over the guidewire, and the guidewire was removed. Good blood flow was noted in the 3 different ports of the triple-lumen catheter. Line was secured using 3.0 silk sutures. No evidence of any complications. A sterile dressing was applied. MMODL / IJN: [id number] /
--- NOTE | 2021-03-22 22:31 | OP ---
OPERATIVE REPORT OPERATIVE REPORT: Placement of a left brachial arterial line. PREOPERATIVE DIAGNOSIS: Acute rhabdomyolysis, acute compartment syndrome of right forearm and hypotension. POSTOPERATIVE DIAGNOSIS: Acute rhabdomyolysis, acute compartment syndrome of right forearm and hypotension. ANESTHESIA USED: None deployed. PROCEDURE DESCRIPTION: The patient was placed in a supine position. The left brachial area was prepared in a sterile fashion and drapes were applied. The left brachial artery could not be palpated; then Doppler was used. Using Doppler as guidance, the left brachial artery was cannulated easily and a guidewire was placed. A Cook's catheter was inserted over the guidewire, and the guidewire was removed. Good blood flow, good waveform noted. Line was secured using 3.0 silk sutures. Procedure was tolerated. No complications. MMODL / IJN: [id number] /
--- NOTE | 2021-03-22 22:33 | P.CONS ---
History of Present Illness - Reason for Consult Consult date: 03/22/21 antibiotics and wound care Requesting physician: Lalo Paez - Chief Complaint right arm pain x 2 days - History of Present Illness History of present illness : Patient is 70-year-old male with a past medical history significant for Parkinson disease diabetes hypothyroidism chronic back pain apparently the patient fell down and was found pain in between his bed and the nightstand patient was rolling in the bed when he fell and caught himself stuck. The patient was stopped for 2 days as he was unable to reach anyone neighbors came to check on him and he was TAKEN between the bed and the nightstand EMS was calling and the patient was brought to the hospital patient was noticed to have a swelling bruising and ecchymosis of the right forearm and right hand patient was evaluated by orthopedics and the patient has been diagnosed with a compartment syndrome patient was taken to the OR last evening and the patient is status post right forearm fasciotomy of 3 compartment did not mention any evidence of significant purulence and no culture was done wound work was applied and the patient was subsequently admitted to the floor patient on presentation to the hospital was afebrile and no fever has been recorded subsequently no hypoxemia was noticed on need for supplemental oxygen patient did have white count of 13.11 initially with slight left shift noticed to have elevated BUN and creatinine which is up to 2.65 today he did have elevated lactic acid AST is elevated with a CK of 45,000 admission is up to 60,000 today patient has been empirically treated with the cefazolin dose has been adjusted renally infectious disease was consulted for local wound care and management of antibiotic therapy patient at time evaluation is breathing comfortably on room air has been complaining of some pain to the right upper extremity morphine relieving pain 4-5 today and had no additional denies any nausea no vomiting and no diarrhea Review of system: CONSTITUTIONAL: Positive for weakness denies fever. EYES: No complaint. ENT: No complaint. RESPIRATORY: Mild cough. CARDIOVASCULAR: No complaint. GENITOURINARY: No complaint. GASTROINTESTINAL: No complaint. MUSCULOSKELETAL: As per history of present illness. INTEGUMENTARY: As per history of present illness. PSYCHOLOGIC: No complaint. ENDOCRINE: No complaint. NEUROLOGIC: No complaint. Past medical history : Reviewed, documented below Past surgical history : Reviewed, documented below Social history: Reviewed, documented below Medications: Reviewed, as documented below EXAMINATION: Vital sigans= Reviewed and documented below GENERAL DESCRIPTION: Elderly male lying in bed, no distress. No tachypnea or accessory muscle of respiration use. HEENT: Shows Pallor , no scleral icterus. Oral mucous membrane is dry. NECK: Trachea central, no thyromegaly. LUNGS: Unlabored breathing. Decreased breath sound at the base. No wheeze or crackle. HEART: S1, S2, regular rate and rhythm. ABDOMEN: Soft, no tenderness , guarding or rigidity EXTREMITIES: Right upper extremity with swelling multiple wounds currently covered with a wound VAC SKIN: No rash, no masses palpable. NEUROLOGICAL: The patient is awake, alert, oriented x3, mood and affect normal. LABS AND RADIOLOGY: Reviewed results see below Assessment :1-chest x-ray with no multifocal infiltrate treatment only mostly supportive patient presented to hospital with significant swelling of the right upper extremity this patient apparently was started between the bed and the nightstand for almost 2 days with evidence of compartment syndrome to the right upper extremity status post fasciotomy x3 there was no mention of any purulence at the time of surgical procedure and the patient did not have any fever White count is mildly elevated more likely no evidence of secondary infection 2-patient with a positive COVID test in this patient not vaccinated for COVID- 19, patient did not have significant hypoxemia or need for supplemental oxygen and no groundglass opacity seen on the chest x-ray patient not very clear about any respiratory symptoms before his fall Plan: 1-cefazolin 2 g every 12hr to continue, dose adjusted to kidney function 2-we will add zinc ascorbic acid and continue with heparin 3-we will recheck his inflammatory marker 4-droplet isolation and respiratory support We will follow on clinical condition and cultures to further adjust medication if needed Thank you for this consultation we will follow the patient along with you Past Medical History Past Medical History: Diabetes Mellitus Additional Past Medical History / Comment(s): guillian-barre syndrome, parkinsons, rt. shoulder rotator cuff repair, lasic eye surgery, L4-L5 laporosco py History of Any Multi-Drug Resistant Organisms: None Reported Past Surgical History: Back Surgery Past Psychological History: No Psychological Hx Reported Smoking Status: Never smoker Past Alcohol Use History: None Reported Past Drug Use History: None Reported Medications and Allergies Home Medications Medication Instructions Recorded Confirmed Type Aspirin EC [Ecotrin Low Dose] 81 mg PO DAILY 10/01/20 03/21/21 History Carbidopa-Levodopa 25-100 mg 1.5 tab PO TID 10/01/20 03/21/21 History [Sinemet 25-100 mg] Levothyroxine Sodium [Synthroid] 150 mcg PO DAILY 10/01/20 03/21/21 History Multivitamins, Thera [Multivitamin 1 tab PO DAILY 10/01/20 03/21/21 History (formulary)] Pregabalin [Lyrica] 150 mg PO TID 10/01/20 03/21/21 History Tamsulosin HCl [Flomax] 0.4 mg PO DAILY 10/01/20 03/21/21 History metFORMIN HCL [Glucophage] 1,000 mg PO BID 10/01/20 03/21/21 History Allergies Allergy/AdvReac Type Severity Reaction Status Date / Time Sulfa (Sulfonamide Allergy Unknown Verified 03/21/21 15:47 Antibiotics) Physical Exam Vitals: Vital Signs Temp Pulse Pulse Pulse Resp BP BP 03/22/21 08:27 03/22/21 04:00 97.5 F L 107 H 16 92/86 03/22/21 00:00 97 F L 107 H 18 108/76 03/21/21 20:00 96.7 F L 110 H 18 98/72 03/21/21 17:41 92 18 110/78 03/21/21 17:26 83 16 122/65 03/21/21 17:11 86 18 112/84 03/21/21 16:56 97.6 F 88 16 140/88 03/21/21 15:10 98.9 F 63 16 174/80 03/21/21 14:48 82 18 147/99 03/21/21 12:36 98 F 74 18 142/99 Pulse Ox 03/22/21 08:27 95 03/22/21 04:00 96 03/22/21 00:00 95 03/21/21 20:00 96 03/21/21 17:41 96 03/21/21 17:26 97 03/21/21 17:11 98 03/21/21 16:56 98 03/21/21 15:10 97 03/21/21 14:48 95 03/21/21 12:36 96 Intake and Output 03/21/21 03/22/21 03/22/21 22:59 06:59 14:59 Intake Total 1950 240 360 Output Total 25 300 Balance 1925 -60 360 Intake: IV 1950 Oral 240 360 Output: Drainage 200 Right Arm 200 Urine 100 Estimated Blood Loss 25 Other: Voiding Method Urinal Urinal # Voids 1 Weight 74.843 kg Results CBC & Chem 7: 03/22/21 12:28 03/22/21 21:20 Labs: Abnormal Lab Results - Last 24 Hours (Table) 03/21/21 03/21/21 03/21/21 Range/Units 13:08 13:08 13:08 WBC 13.9 H (3.8-10.6) k/uL Hct 53.6 H (39.0-53.0) % Neutrophils # 12.2 H (1.3-7.7) k/uL Lymphocytes # 0.7 L (1.0-4.8) k/uL Sodium 136 L (137-145) mmol/L Potassium 6.1 H* (3.5-5.1) mmol/L Carbon Dioxide 19 L (22-30) mmol/L Creatinine 1.35 H (0.66-1.25) mg/dL Glucose 242 H (74-99) mg/dL POC Glucose (mg/dL) (75-99) mg/dL Hemoglobin A1c (0.0-6.0) % Plasma Lactic Acid Be 7.1 H* (0.7-2.0) mmol/L AST 660 H (17-59) U/L ALT 259 H (4-49) U/L Creatine Kinase 68606 H* (55-170) U/L HDL Cholesterol (40.00-60.00) mg/dL Urine RBC (0-5) /hpf Urine WBC (0-5) /hpf Amorphous Sediment (None) /hpf Urine Bacteria (None) /hpf Urine Mucus (None) /hpf Coronavirus (PCR) (Not Detectd) 03/21/21 03/21/21 03/21/21 Range/Units 13:08 15:20 15:25 WBC (3.8-10.6) k/uL Hct (39.0-53.0) % Neutrophils # (1.3-7.7) k/uL Lymphocytes # (1.0-4.8) k/uL Sodium 135 L (137-145) mmol/L Potassium (3.5-5.1) mmol/L Carbon Dioxide 21 L (22-30) mmol/L Creatinine 1.39 H (0.66-1.25) mg/dL Glucose 259 H (74-99) mg/dL POC Glucose (mg/dL) (75-99) mg/dL Hemoglobin A1c 8.3 H (0.0-6.0) % Plasma Lactic Acid Be (0.7-2.0) mmol/L AST 1293 H (17-59) U/L ALT 322 H (4-49) U/L Creatine Kinase (55-170) U/L HDL Cholesterol (40.00-60.00) mg/dL Urine RBC (0-5) /hpf Urine WBC (0-5) /hpf Amorphous Sediment (None) /hpf Urine Bacteria (None) /hpf Urine Mucus (None) /hpf Coronavirus (PCR) Detected A (Not Detectd) 03/21/21 03/21/21 03/21/21 Range/Units 15:25 18:34 18:34 WBC (3.8-10.6) k/uL Hct (39.0-53.0) % Neutrophils # (1.3-7.7) k/uL Lymphocytes # (1.0-4.8) k/uL Sodium (137-145) mmol/L Potassium (3.5-5.1) mmol/L Carbon Dioxide (22-30) mmol/L Creatinine (0.66-1.25) mg/dL Glucose (74-99) mg/dL POC Glucose (mg/dL) (75-99) mg/dL Hemoglobin A1c (0.0-6.0) % Plasma Lactic Acid Be 6.9 H* 4.5 H* (0.7-2.0) mmol/L AST (17-59) U/L ALT (4-49) U/L Creatine Kinase (55-170) U/L HDL Cholesterol 33.00 L (40.00-60.00) mg/dL Urine RBC (0-5) /hpf Urine WBC (0-5) /hpf Amorphous Sediment (None) /hpf Urine Bacteria (None) /hpf Urine Mucus (None) /hpf Coronavirus (PCR) (Not Detectd) 03/21/21 03/21/21 03/22/21 Range/Units 19:57 21:54 00:48 WBC (3.8-10.6) k/uL Hct (39.0-53.0) % Neutrophils # (1.3-7.7) k/uL Lymphocytes # (1.0-4.8) k/uL Sodium (137-145) mmol/L Potassium (3.5-5.1) mmol/L Carbon Dioxide (22-30) mmol/L Creatinine (0.66-1.25) mg/dL Glucose (74-99) mg/dL POC Glucose (mg/dL) 273 H (75-99) mg/dL Hemoglobin A1c (0.0-6.0) % Plasma Lactic Acid Be 4.7 H* 4.1 H* (0.7-2.0) mmol/L AST (17-59) U/L ALT (4-49) U/L Creatine Kinase (55-170) U/L HDL Cholesterol (40.00-60.00) mg/dL Urine RBC (0-5) /hpf Urine WBC (0-5) /hpf Amorphous Sediment (None) /hpf Urine Bacteria (None) /hpf Urine Mucus (None) /hpf Coronavirus (PCR) (Not Detectd) 03/22/21 03/22/21 03/22/21 Range/Units 03:36 04:45 06:08 WBC (3.8-10.6) k/uL Hct (39.0-53.0) % Neutrophils # (1.3-7.7) k/uL Lymphocytes # (1.0-4.8) k/uL Sodium (137-145) mmol/L Potassium (3.5-5.1) mmol/L Carbon Dioxide (22-30) mmol/L Creatinine (0.66-1.25) mg/dL Glucose (74-99) mg/dL POC Glucose (mg/dL) 221 H (75-99) mg/dL Hemoglobin A1c (0.0-6.0) % Plasma Lactic Acid Be 3.3 H* (0.7-2.0) mmol/L AST (17-59) U/L ALT (4-49) U/L Creatine Kinase (55-170) U/L HDL Cholesterol (40.00-60.00) mg/dL Urine RBC 56 H (0-5) /hpf Urine WBC >182 H (0-5) /hpf Amorphous Sediment Few H (None) /hpf Urine Bacteria Many H (None) /hpf Urine Mucus Many H (None) /hpf Coronavirus (PCR) (Not Detectd)
[2021-03-23] MEDS: DEXTROSE 5% IN WATER 1,000 ML with SODIUM BICARB (1 MEQ/ML) 150 ML IV SCH ×2 (03:38→03:39)
[2021-03-23 05:30] LABS: Albumin 2.1 g/dL (3.5-5.0); Calcium 6.7 mg/dL (8.4-10.2); Magnesium 2.2 mg/dL (1.6-2.3); Potassium 4.3 mmol/L (3.5-5.1); Total Bilirubin 0.4 mg/dL (0.2-1.3); Total Protein 4.3 g/dL (6.3-8.2)
[2021-03-23 05:44] LABS: C Reactive Protein 16.8 mg/dL (<1.0)
--- NOTE | 2021-03-23 06:15 | XR ---
EXAMINATION TYPE: XR chest 1V portable DATE OF EXAM: 03/23/2021 CLINICAL HISTORY: Difficulty breathing progress study. TECHNIQUE: Single AP portable semiupright view of the chest is obtained. COMPARISON: Chest x-ray from one day earlier and older studies. FINDINGS: Elevated right hemidiaphragm redemonstrated. Persistent cardiomegaly. Persistent central l eft hilar opacity extending inferiorly consistent with atelectasis and/or infiltrate. Upper lungs rem ain clear without pneumothorax. Osseous structures are intact. IMPRESSION: Chronic changes and cardiomegaly with medial left lower lung atelectasis and/or infiltrat e noted.
[2021-03-23 06:37] LABS: Glucose,Whole Blood 196 mg/dL (75-99)
[2021-03-23] MEDS: LEVOTHYROXINE 75 MCG TAB PO SCH (06:41)
[2021-03-23] MEDS: INSULIN ASPART (NovoLOG) 100 UNIT/ML VIAL SQ SCH ×4 (06:42→20:22)
--- NOTE | 2021-03-23 08:34 | P.NPCON ---
History of Present Illness - Reason for Consult acute renal failure, hyperkalemia - History of Present Illness Reason for consultation: Acute kidney injury and hyperkalemia History of present illness: Patient is a 70-year-old male seen in consultation for acute kidney injury and hyperkalemia. Patient's baseline creatinine from October 2020 is near 0.8. It was elevated at 1.35 this admission and is 3.57 today. Patient presented to the hospital after sustaining a fall. Patient states his right arm was stuck between his bed and nightstand. Patient states he was down for several hours. Patient was noted to have right forearm compartment syndrome and underwent fasciotomy with application of wound VAC on 03/21/2021. Patient was also noted to be in rhabdomyolysis. Patient's CK level was 45,732 on admission and was up to 60,158 yesterday. Today it is 50,166. He does have history of diabetes. I don't see statin and his home medication list. He also underwent CT angiogram on 03/22/2021. Blood pressure stable. Patient was also hyperkalemic with potassium level as high as 6.5 yesterday. This was medically treated and improved. This morning's potassium is 4.3. Currently maintain a bicarb drip. Urine output about 30 mL an hour. Vital signs are stable. General: The patient appeared well nourished and normally developed. HEENT: Head exam is unremarkable. LUNGS: Breath sounds decreased. HEART: Rate and Rhythm are regular. ABDOMEN: Soft, no distention. EXTREMITITES: No edema. Right arm wound VAC noted. Past Medical History Past Medical History: Diabetes Mellitus Additional Past Medical History / Comment(s): guillian-barre syndrome, parkinsons, rt. shoulder rotator cuff repair, lasic eye surgery, L4-L5 laporo scopy History of Any Multi-Drug Resistant Organisms: None Reported Past Surgical History: Back Surgery Past Psychological History: No Psychological Hx Reported Smoking Status: Never smoker Past Alcohol Use History: None Reported Past Drug Use History: None Reported Medications and Allergies Home Medications Medication Instructions Recorded Confirmed Type Aspirin EC [Ecotrin Low Dose] 81 mg PO DAILY 10/01/20 03/21/21 History Carbidopa-Levodopa 25-100 mg 1.5 tab PO TID 10/01/20 03/21/21 History [Sinemet 25-100 mg] Levothyroxine Sodium [Synthroid] 150 mcg PO DAILY 10/01/20 03/21/21 History Multivitamins, Thera [Multivitamin 1 tab PO DAILY 10/01/20 03/21/21 History (formulary)] Pregabalin [Lyrica] 150 mg PO TID 10/01/20 03/21/21 History Tamsulosin HCl [Flomax] 0.4 mg PO DAILY 10/01/20 03/21/21 History metFORMIN HCL [Glucophage] 1,000 mg PO BID 10/01/20 03/21/21 History Allergies Allergy/AdvReac Type Severity Reaction Status Date / Time Sulfa (Sulfonamide Allergy Unknown Verified 03/21/21 15:47 Antibiotics) Physical Exam Vitals: Vital Signs Temp Pulse Pulse Resp BP BP Pulse Ox 03/23/21 07:00 81 10 L 98 03/23/21 06:30 82 11 L 98 03/23/21 06:00 85 12 98 03/23/21 05:30 81 14 99 03/23/21 05:00 85 13 96 03/23/21 04:30 83 11 L 96 03/23/21 04:00 84 13 95 03/23/21 03:30 85 11 L 96 03/23/21 03:00 87 12 95 03/23/21 02:30 85 12 96 03/23/21 02:00 86 11 L 95 03/23/21 01:30 84 10 L 96 03/23/21 01:00 84 17 96 03/23/21 00:38 82 11 L 96 03/23/21 00:30 84 10 L 96 03/23/21 00:00 93 11 L 95 03/22/21 23:30 91 11 L 96 03/22/21 23:00 90 11 L 96 03/22/21 22:30 87 12 95 03/22/21 22:00 98.1 F 84 10 L 136/93 97 03/22/21 21:30 83 11 L 136/93 97 03/22/21 21:15 85 14 136/93 96 03/22/21 21:00 83 11 L 97/82 94 L 03/22/21 20:45 92 12 90/73 94 L 03/22/21 20:30 95 11 L 83/66 97 03/22/21 20:15 100 12 87/61 94 L 03/22/21 20:00 101 H 13 96/49 94 L 03/22/21 19:45 99 12 81/60 93 L 03/22/21 19:30 99 11 L 79/69 93 L 03/22/21 19:15 100 11 L 72/44 95 03/22/21 19:00 100 11 L 104/70 95 03/22/21 18:45 99 11 L 104/70 94 L 03/22/21 18:30 98 11 L 95 03/22/21 18:25 101 H 10 L 97 03/22/21 16:00 97.5 F L 95 20 86/66 03/22/21 14:00 78 16 03/22/21 12:00 97.4 F L 78 16 101/71 93 L 03/22/21 08:27 95 Intake and Output 03/22/21 03/23/21 03/23/21 22:59 06:59 14:59 Intake Total 2600 1440 150 Output Total 665 225 30 Balance 1935 1215 120 Intake: IV 2600 1200 150 Dextrose 5% in Water 1, 600 1200 150 000 ml @ 150 mls/hr IV . Q7H40M ANABEL with Sodium Bicarb (1 Meq/ml) 150 ml Rx#:[id number] Sodium Chloride 0.9% 2, 2000 000 ml @ 999 mls/hr IV . Q2H1M ONE Rx#:[id number] Tube Feeding 240 Output: Urine 665 225 30 Uretheral (Gerardo) 300 Other: Voiding Method Indwelling Catheter Indwelling Catheter Weight 79 kg ABP, PAP, CO, CI - Last 8 Hours Arterial Blood Pressure 109/61 Arterial Blood Pressure 117/64 Arterial Blood Pressure 109/65 Arterial Blood Pressure 125/72 Arterial Blood Pressure 129/73 Arterial Blood Pressure 116/71 Arterial Blood Pressure 110/70 Arterial Blood Pressure 118/70 Arterial Blood Pressure 117/66 Arterial Blood Pressure 110/62 Arterial Blood Pressure 116/65 Arterial Blood Pressure 128/72 Arterial Blood Pressure 138/70 Arterial Blood Pressure 123/66 Arterial Blood Pressure 104/67 Results - Lab Results Most recent lab results ABG pH 7.42 (7.35-7.45) 03/22/21 22:23 ABG pCO2 38 mmHg (35-45) 03/22/21 22:23 ABG pO2 92 mmHg (83-108) 03/22/21 22:23 ABG HCO3 25 mmol/L (21-25) 03/22/21 22:23 ABG O2 Saturation 97.9 % (94-97) H 03/22/21 22:23 Calcium 6.7 mg/dL (8.4-10.2) L 03/23/21 04:45 Magnesium 2.2 mg/dL (1.6-2.3) 03/23/21 04:45 03/22/21 12:28 03/23/21 04:45 Assessment and Plan Plan: Assessment: 1. Acute kidney injury secondary to ATN secondary to rhabdomyolysis. Baseline creatinine near 1 and is up to 3.57 today. Patient also received IV contrast for CT angiogram on 03/22/2021. Urine output about 30 mL an hour. 2. Rhabdomyolysis secondary to fall and crush injury. CK level peaked at 60,158 on 03/22/2021 and is down to 50,166 today. 3. Right forearm compartment syndrome status post fasciotomy and wound VAC placement. Scheduled for another surgery today. 4. Hyperkalemia secondary to acute kidney injury and rhabdomyolysis. Improved with medical management. 5. Metabolic acidosis secondary to acute kidney injury. He is also on metformin outpatient. 6. Diabetes mellitus. 7. Hypocalcemia secondary to acute kidney injury and rhabdomyolysis. Corrected calcium for albumin is normal. 8. COVID-19 infection. Plan: Stop bicarb drip. Start normal saline at 150 mL an hour. Continue to monitor renal function and urine output. Monitor CK levels. Continue to assess daily for need for renal replacement therapy. Check renal ultrasound. Thank you for the consultation. I will continue to follow the patient with you during his hospital stay.
[2021-03-23] MEDS: CARBIDOPA-LEVODOPA 25-100 MG 1 EACH TAB PO SCH ×3 (08:42→20:14)
[2021-03-23] MEDS: SODIUM CHLORIDE 0.9% 1,000 ML IV SCH ×3 (08:42→23:27)
[2021-03-23] MEDS: MULTIVITAMINS, THERA 1 EACH TAB PO SCH (08:43)
[2021-03-23] MEDS: CYANOCOBALAMIN 500 MCG TAB PO SCH (08:43)
[2021-03-23] MEDS: ZINC SULFATE 220 MG CAP PO SCH (08:43)
[2021-03-23] MEDS: TAMSULOSIN 0.4 MG CAP.ER.24H PO SCH (08:43)
[2021-03-23] MEDS: PREGABALIN 75 MG CAP PO SCH ×3 (08:43→20:14)
[2021-03-23] MEDS: ASCORBIC ACID 500 MG TAB PO SCH (08:43)
[2021-03-23] MEDS: HEPARIN SODIUM,PORCINE/PF 5,000 UNIT/0.5 ML SYRINGE SQ SCH ×2 (08:43→20:14)
--- NOTE | 2021-03-23 09:48 | P.PN ---
Subjective Progress Note Date: 03/23/21 patient is seen and examined He underwent right upper extremity fasciotomy. He remains unable to move his right upper extremity and no sensory. Overnight he was transferred to ICU for worsening rhabdomyolysis and renal dysfunction. Central line and brachial A-line were placed Objective - Vital Signs Vital signs: Vital Signs Temp 97.6 F 03/23/21 08:00 Pulse 87 03/23/21 09:00 Resp 14 03/23/21 09:00 BP 136/93 03/22/21 22:00 Pulse Ox 99 03/23/21 09:00 Intake & Output 03/22/21 03/23/21 03/23/21 18:59 06:59 18:59 Intake Total 4490 4040 450 Output Total 600 290 90 Balance 3890 3750 360 Weight 79 kg Intake: IV 3800 450 Dextrose 5% in Water 1, 1800 450 000 ml @ 150 mls/hr IV . Q7H40M ANABEL with Sodium Bicarb (1 Meq/ml) 150 ml Rx#:[id number] Sodium Chloride 0.9% 2, 2000 000 ml @ 999 mls/hr IV . Q2H1M ONE Rx#:[id number] Intake, IV Titration 3090 Amount Sodium Chloride 0.9% 1, 1040 000 ml @ 130 mls/hr IV . Q7H42M [facility] Rx#:[id number] Sodium Chloride 0.9% 2, 2000 000 ml @ 999 mls/hr IV . Q2H1M ONE Rx#:[id number] ceFAZolin 2 gm In Sodium 50 Chloride 0.9% 50 ml @ 100 mls/hr IVPB Q8HR [facility] Rx# :[id number] Oral 1400 Tube Feeding 240 Output: Urine 600 290 90 Uretheral (Gerardo) 300 Other: Voiding Method Urinal Indwelling Catheter Indwelling Catheter ABP, PAP, CO, CI - Last Documented Arterial Blood Pressure 118/69 - Exam Gen. a pleasant cooperative male in no acute distress. Undergoing renal ultrasound HEENT is normal cephalic, atraumatic, extraocular motion intact. Heart appears regular this time. Lungs are clear bilaterally. Abdomen is soft, obese, nontender. He has normal motor function of his lower extremities. Normal left upper extremity. Right upper extremitycontinues to be swollen. Right forearm fasciotomy with wound VAC. Cyanotic changes to the hand, unable to move. - Labs CBC & Chem 7: 03/22/21 12:28 03/23/21 04:45 Labs: Abnormal Lab Results - Last 24 Hours (Table) 03/22/21 03/22/21 03/22/21 Range/Units 06:08 11:04 11:45 WBC (3.8-10.6) k/uL Neutrophils # (1.3-7.7) k/uL Monocytes # (0-1.0) k/uL D-Dimer (<0.60) mg/L FEU ABG Total CO2 (19-24) mmol/L ABG O2 Saturation (94-97) % Sodium 133 L (137-145) mmol/L Potassium 6.5 H* (3.5-5.1) mmol/L Chloride 112 H (98-107) mmol/L Carbon Dioxide 10 L (22-30) mmol/L BUN 31 H (9-20) mg/dL Creatinine 2.65 H (0.66-1.25) mg/dL Glucose 244 H (74-99) mg/dL POC Glucose (mg/dL) 221 H 207 H (75-99) mg/dL Plasma Lactic Acid Be (0.7-2.0) mmol/L Calcium 7.2 L (8.4-10.2) mg/dL AST 1424 H (17-59) U/L ALT 87 H (4-49) U/L Lactate Dehydrogenase (313-618) U/L Creatine Kinase (55-170) U/L C-Reactive Protein (<1.0) mg/dL Total Protein 5.6 L (6.3-8.2) g/dL Albumin 2.6 L (3.5-5.0) g/dL 03/22/21 03/22/21 03/22/21 Range/Units 12:28 12:28 12:28 WBC 12.0 H (3.8-10.6) k/uL Neutrophils # 9.4 H (1.3-7.7) k/uL Monocytes # 1.2 H (0-1.0) k/uL D-Dimer (<0.60) mg/L FEU ABG Total CO2 (19-24) mmol/L ABG O2 Saturation (94-97) % Sodium (137-145) mmol/L Potassium (3.5-5.1) mmol/L Chloride (98-107) mmol/L Carbon Dioxide (22-30) mmol/L BUN (9-20) mg/dL Creatinine (0.66-1.25) mg/dL Glucose (74-99) mg/dL POC Glucose (mg/dL) (75-99) mg/dL Plasma Lactic Acid Be 2.7 H* (0.7-2.0) mmol/L Calcium (8.4-10.2) mg/dL AST (17-59) U/L ALT (4-49) U/L Lactate Dehydrogenase (313-618) U/L Creatine Kinase 60400 H* (55-170) U/L C-Reactive Protein (<1.0) mg/dL Total Protein (6.3-8.2) g/dL Albumin (3.5-5.0) g/dL 03/22/21 03/22/21 03/22/21 Range/Units 16:47 18:27 21:17 WBC (3.8-10.6) k/uL Neutrophils # (1.3-7.7) k/uL Monocytes # (0-1.0) k/uL D-Dimer (<0.60) mg/L FEU ABG Total CO2 (19-24) mmol/L ABG O2 Saturation (94-97) % Sodium (137-145) mmol/L Potassium (3.5-5.1) mmol/L Chloride (98-107) mmol/L Carbon Dioxide (22-30) mmol/L BUN (9-20) mg/dL Creatinine (0.66-1.25) mg/dL Glucose (74-99) mg/dL POC Glucose (mg/dL) 217 H 257 H 189 H (75-99) mg/dL Plasma Lactic Acid Be (0.7-2.0) mmol/L Calcium (8.4-10.2) mg/dL AST (17-59) U/L ALT (4-49) U/L Lactate Dehydrogenase (313-618) U/L Creatine Kinase (55-170) U/L C-Reactive Protein (<1.0) mg/dL Total Protein (6.3-8.2) g/dL Albumin (3.5-5.0) g/dL 03/22/21 03/23/21 03/23/21 Range/Units 22:23 04:45 04:45 WBC (3.8-10.6) k/uL Neutrophils # (1.3-7.7) k/uL Monocytes # (0-1.0) k/uL D-Dimer 2.31 H (<0.60) mg/L FEU ABG Total CO2 26 H (19-24) mmol/L ABG O2 Saturation 97.9 H (94-97) % Sodium 134 L (137-145) mmol/L Potassium (3.5-5.1) mmol/L Chloride (98-107) mmol/L Carbon Dioxide (22-30) mmol/L BUN 42 H (9-20) mg/dL Creatinine 3.57 H (0.66-1.25) mg/dL Glucose 225 H (74-99) mg/dL POC Glucose (mg/dL) (75-99) mg/dL Plasma Lactic Acid Be (0.7-2.0) mmol/L Calcium 6.7 L (8.4-10.2) mg/dL AST 867 H (17-59) U/L ALT (4-49) U/L Lactate Dehydrogenase 4032 H (313-618) U/L Creatine Kinase 64889 H* (55-170) U/L C-Reactive Protein 16.8 H (<1.0) mg/dL Total Protein 4.3 L (6.3-8.2) g/dL Albumin 2.1 L (3.5-5.0) g/dL 03/23/21 Range/Units 06:35 WBC (3.8-10.6) k/uL Neutrophils # (1.3-7.7) k/uL Monocytes # (0-1.0) k/uL D-Dimer (<0.60) mg/L FEU ABG Total CO2 (19-24) mmol/L ABG O2 Saturation (94-97) % Sodium (137-145) mmol/L Potassium (3.5-5.1) mmol/L Chloride (98-107) mmol/L Carbon Dioxide (22-30) mmol/L BUN (9-20) mg/dL Creatinine (0.66-1.25) mg/dL Glucose (74-99) mg/dL POC Glucose (mg/dL) 196 H (75-99) mg/dL Plasma Lactic Acid Be (0.7-2.0) mmol/L Calcium (8.4-10.2) mg/dL AST (17-59) U/L ALT (4-49) U/L Lactate Dehydrogenase (313-618) U/L Creatine Kinase (55-170) U/L C-Reactive Protein (<1.0) mg/dL Total Protein (6.3-8.2) g/dL Albumin (3.5-5.0) g/dL Microbiology - Last 24 Hours (Table) 03/21/21 18:34 Blood Culture - Preliminary Blood No Growth after 24 hours 03/21/21 18:34 Blood Culture - Preliminary Blood No Growth after 24 hours 03/22/21 03:36 Urine Culture - Preliminary Urine,Voided Assessment and Plan Assessment: right upper extremity cyanotic changes, ischemia due to compression Right arm compartment syndromepost fasciotomy Hyperkalemia, improved Rhabdomyolysis, improving Plan: Continue to monitor for recommendations of renal replacement therapy and possible dialysis catheter. No further vascular for the upper extremity this time. Call if needed during the takeback procedure for evaluation intraoperatively.
--- NOTE | 2021-03-23 09:49 | US ---
EXAMINATION TYPE: US kidneys/renal and bladder DATE OF EXAM: 03/23/2021 COMPARISON: US abdomen 2020 CLINICAL HISTORY: brandon. COVID ICU patient EXAM MEASUREMENTS: Right Kidney: 10.8 x 8.1x 6.0 cm Left Kidney: 12.0 x 6.6 x 6.2 cm Post Void Residual Volume: not assessed on inpatient with Gerardo Catheter present. Limited US due to patient inability to turn with ICU status and right arm surgical dressings. Right Kidney: No hydronephrosis or masses seen Left Kidney: No hydronephrosis or masses seen Bladder: Gerardo Catheter is noted within There is no evidence for hydronephrosis at this point in time. No nephrolithiasis is seen. No rylei s are identified on images saved. IMPRESSION: Suboptimal study without hydronephrosis seen bilaterally.
--- NOTE | 2021-03-23 10:24 | P.PN ---
Subjective Progress Note Date: 03/23/21 The patient is seen at bedside and he feels he is more awake today compared to yesterday. He continues not to be able to move right upper extremity and it is significantly edematous. He said he rolled out of bed and his significant other who resides in [place] has not heard from him and result his neighbor was contacted and came over his place. Objective - Vital Signs Vital signs: Vital Signs Temp 97.6 F 03/23/21 08:00 Pulse 87 03/23/21 09:00 Resp 14 03/23/21 09:00 BP 136/93 03/22/21 22:00 Pulse Ox 99 03/23/21 09:00 Intake & Output 03/22/21 03/23/21 03/23/21 18:59 06:59 18:59 Intake Total 4490 4040 450 Output Total 600 290 90 Balance 3890 3750 360 Weight 79 kg Intake: IV 3800 450 Dextrose 5% in Water 1, 1800 450 000 ml @ 150 mls/hr IV . Q7H40M [facility] with Sodium Bicarb (1 Meq/ml) 150 ml Rx#:[id number] Sodium Chloride 0.9% 2, 2000 000 ml @ 999 mls/hr IV . Q2H1M ONE Rx#:[id number] Intake, IV Titration 3090 Amount Sodium Chloride 0.9% 1, 1040 000 ml @ 130 mls/hr IV . Q7H42M [facility] Rx#:[id number] Sodium Chloride 0.9% 2, 2000 000 ml @ 999 mls/hr IV . Q2H1M ONE Rx#:[id number] ceFAZolin 2 gm In Sodium 50 Chloride 0.9% 50 ml @ 100 mls/hr IVPB Q8HR [facility] Rx# :[id number] Oral 1400 Tube Feeding 240 Output: Urine 600 290 90 Uretheral (Gerardo) 300 Other: Voiding Method Urinal Indwelling Catheter Indwelling Catheter ABP, PAP, CO, CI - Last Documented Arterial Blood Pressure 118/69 - Exam GENERAL: The patient is lying in bed and is in moderate acute distress. INTEGUMENTARY: Has significant edema of entire right upper extremity. NEUROLOGICAL: Higher mental function: The patient is awake, alert, oriented to self, place and time. Patient is following simple commands. No aphasia and no neglect. Cranial nerves: The pupils are round, equal and reactive to light. Visual pollard are full to confrontation throughout. Extraocular movement is intact no nystagmus is noted. Facial sensation is normal to touch throughout. The facial strength is normal throughout. Tongue is midline and moved [id number] without any difficulty. No dysarthria is noted. Could not assess shoulder assessment because of pain. Motor: Gait is deferred because of his condition. The strength is 0/5 and was in pain trying to moving his arm. Otherwise 5/5 throughout. Has significant edema of entire right upper extremity. Sensation: Unable to assess entire upper extremity because of significant edema. Otherwise normal to touch. . Reflexes (right/left): 1+ throughout except unable to perform right upper because of pain and significant edema. Plantars are mute bilaterally. WORK-UP: Calcium is 9.8, magnesium 2.2, AST of 6 on 16 repeat is 1293 while the ALTs to 59 repeated 322. Ammonia level is 12. CK level is 45,732-->14824 Lipid panel is triglyceride of 142, cholesterol 149, LDLs 87, HDL is 33. Hoff virus PCR is detected positive Urinalysis seems possible suggestive of urinary tract infection. Pending urine culture. CT of the head is reported right internal carotid artery is somewhat hyperdense would recommend CT angiography of [place] exclude internal thrombus. No acute intracranial hemorrhage or mass effect. Degenerative and nonspecific white matter changes most typical remote ischemia. Slightly greater central component ventricle dilation can be associated with normal pressure hydrocephalus correlate clinically. Personally reviewed the CT of the head there is no acute or subacute ischemia and there is no proximal hemorrhage. CT Cervical spine is reported as Severe multilevel degenerative disc disease with no acute fracture. I personally contacted the ED physician yesterday and notified the the ED to change from CT angiography of the neck too CT angiography of the head and neck and an change the order from routine to more urgent. CT angiography of the head and neck is reported as negative. X-ray of the right shoulder is reported as finding suspicious for hairline fracture nondisplaced distal right clavicle. Correlate for soft tissue edema. Otherwise the rest of the x-ray of the right upper extremity was negative for fracture reported. - Labs CBC & Chem 7: 03/23/21 04:45 03/23/21 04:45 Labs: Abnormal Lab Results - Last 24 Hours (Table) 03/22/21 03/22/21 03/22/21 Range/Units 11:04 11:45 12:28 WBC (3.8-10.6) k/uL Neutrophils # (1.3-7.7) k/uL Monocytes # (0-1.0) k/uL D-Dimer (<0.60) mg/L FEU ABG Total CO2 (19-24) mmol/L ABG O2 Saturation (94-97) % Sodium 133 L (137-145) mmol/L Potassium 6.5 H* (3.5-5.1) mmol/L Chloride 112 H (98-107) mmol/L Carbon Dioxide 10 L (22-30) mmol/L BUN 31 H (9-20) mg/dL Creatinine 2.65 H (0.66-1.25) mg/dL Glucose 244 H (74-99) mg/dL POC Glucose (mg/dL) 207 H (75-99) mg/dL Plasma Lactic Acid Be 2.7 H* (0.7-2.0) mmol/L Calcium 7.2 L (8.4-10.2) mg/dL AST 1424 H (17-59) U/L ALT 87 H (4-49) U/L Lactate Dehydrogenase (313-618) U/L Creatine Kinase (55-170) U/L C-Reactive Protein (<1.0) mg/dL Total Protein 5.6 L (6.3-8.2) g/dL Albumin 2.6 L (3.5-5.0) g/dL 03/22/21 03/22/21 03/22/21 Range/Units 12:28 12:28 16:47 WBC 12.0 H (3.8-10.6) k/uL Neutrophils # 9.4 H (1.3-7.7) k/uL Monocytes # 1.2 H (0-1.0) k/uL D-Dimer (<0.60) mg/L FEU ABG Total CO2 (19-24) mmol/L ABG O2 Saturation (94-97) % Sodium (137-145) mmol/L Potassium (3.5-5.1) mmol/L Chloride (98-107) mmol/L Carbon Dioxide (22-30) mmol/L BUN (9-20) mg/dL Creatinine (0.66-1.25) mg/dL Glucose (74-99) mg/dL POC Glucose (mg/dL) 217 H (75-99) mg/dL Plasma Lactic Acid Be (0.7-2.0) mmol/L Calcium (8.4-10.2) mg/dL AST (17-59) U/L ALT (4-49) U/L Lactate Dehydrogenase (313-618) U/L Creatine Kinase 02541 H* (55-170) U/L C-Reactive Protein (<1.0) mg/dL Total Protein (6.3-8.2) g/dL Albumin (3.5-5.0) g/dL 03/22/21 03/22/21 03/22/21 Range/Units 18:27 21:17 22:23 WBC (3.8-10.6) k/uL Neutrophils # (1.3-7.7) k/uL Monocytes # (0-1.0) k/uL D-Dimer (<0.60) mg/L FEU ABG Total CO2 26 H (19-24) mmol/L ABG O2 Saturation 97.9 H (94-97) % Sodium (137-145) mmol/L Potassium (3.5-5.1) mmol/L Chloride (98-107) mmol/L Carbon Dioxide (22-30) mmol/L BUN (9-20) mg/dL Creatinine (0.66-1.25) mg/dL Glucose (74-99) mg/dL POC Glucose (mg/dL) 257 H 189 H (75-99) mg/dL Plasma Lactic Acid Be (0.7-2.0) mmol/L Calcium (8.4-10.2) mg/dL AST (17-59) U/L ALT (4-49) U/L Lactate Dehydrogenase (313-618) U/L Creatine Kinase (55-170) U/L C-Reactive Protein (<1.0) mg/dL Total Protein (6.3-8.2) g/dL Albumin (3.5-5.0) g/dL 03/23/21 03/23/21 03/23/21 Range/Units 04:45 04:45 06:35 WBC (3.8-10.6) k/uL Neutrophils # (1.3-7.7) k/uL Monocytes # (0-1.0) k/uL D-Dimer 2.31 H (<0.60) mg/L FEU ABG Total CO2 (19-24) mmol/L ABG O2 Saturation (94-97) % Sodium 134 L (137-145) mmol/L Potassium (3.5-5.1) mmol/L Chloride (98-107) mmol/L Carbon Dioxide (22-30) mmol/L BUN 42 H (9-20) mg/dL Creatinine 3.57 H (0.66-1.25) mg/dL Glucose 225 H (74-99) mg/dL POC Glucose (mg/dL) 196 H (75-99) mg/dL Plasma Lactic Acid Be (0.7-2.0) mmol/L Calcium 6.7 L (8.4-10.2) mg/dL AST 867 H (17-59) U/L ALT (4-49) U/L Lactate Dehydrogenase 4032 H (313-618) U/L Creatine Kinase 74434 H* (55-170) U/L C-Reactive Protein 16.8 H (<1.0) mg/dL Total Protein 4.3 L (6.3-8.2) g/dL Albumin 2.1 L (3.5-5.0) g/dL Microbiology - Last 24 Hours (Table) 03/21/21 18:34 Blood Culture - Preliminary Blood No Growth after 24 hours 03/21/21 18:34 Blood Culture - Preliminary Blood No Growth after 24 hours 03/22/21 03:36 Urine Culture - Preliminary Urine,Voided Assessment and Plan Assessment: Right forearm compartment syndrome status post fasciotomy on 03/21/2021 (as result him rolling over while sleeping) Acute rhabdomyolysis secondary due to injury Acute COVID-19 infection Altered mental status due to toxic-metabolic encephalopathy (MINI, elevated LFT's, Dilaudid use)---improved Acute kidney injury due to fall--trending upwards Possible acute urinary tract infection suspicious for hairline fracture nondisplaced distal right clavicle reported on x-ray: Likely from from his trauma Hyperkalemia secondary due to rhabdomyolysis---resolved Normal CTA of head and neck reported (initially CT head was reported as right internal carotid artery is somewhat hyperdense but that was overcalled). 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 Plan: Stroke is not suspected at this time, therefore cancelled MRI Brain (as well cannot get MRI because of surgical procedure). If patient has any new weakness or neurological deficit can consider MRI Brain. Recommend EMG with NCS of right upper extremity as outpatient ROCIO. He is restarted on his home dose of Sinemet 97540 1-1/2 tablet 3 times a day. Continue vitamin B12 1000 g daily since he has low vitamin B12 from October 2020 Infection disease is consulted for wound care nephrology team is consulted. PT, OT are consulted We'll defer the rest of the medical management to the primary team Upon discharge the patient needs to follow-up with his neurologist (Dr. Erica Tamayo) within 1-2 weeks. Recommend further investigation whether the patient truly has normal pressure hydrocephalus as outpatient. The plan is discussed with the patient and his nurse. Also discussed the plan with Dr. Sy. Neurology will sign off. Please reconsult if needed. Justin Wade M.D. Neuro-Hospitaist Time with Patient: Less than 30
[2021-03-23 11:45] LABS: Glucose,Whole Blood 168 mg/dL (75-99)
[2021-03-23] MEDS ORDERED: SODIUM CHLORIDE 0.9% 1,000 ML IV ONE ×2 (12:12)
--- NOTE | 2021-03-23 12:36 | P.PN ---
Subjective Progress Note Date: 03/23/21 Principal diagnosis: Acute compartment syndrome of right forearm status post fasciotomy, and acute rhabdomyolysis. This is a 70-year-old white male with history of Parkinson's disease, diabetes and diabetic neuropathy, hypothyroidism, chronic back pain, patient apparently fell, and he was found pinned in between his bed and the nightstand. Patient apparently was rolling in bed when he fell and he got stuck. And apparently he was stuck for 2 days has not taken any of his medication. He was unable to reach anyone. Neighbors came in to check on him, and he was noted to be stuck in between the bed and the nightstand, unable to move, patient was released by the neighbor, and brought into the hospital. Upon arrival to the hospital, patient was found to have a thickened swelling bruising ecchymosis of the right forearm and right hand. Seen by orthopedics on consultation, and he was diagnosed as having acute compartment syndrome involving the forearm and right hand. Patient underwent fasciotomy of the right arm shortly after he was seen in the emergency room, and this was done on 03/21/2021. The surgery was done by Dr. Paez, apparently patient had right forearm fasciotomies of 3 compartments volar, dorsal, and mobile wad. He should also had application of wound VAC with negative pressure and wound dressing to forearm fasciotomy wounds. Patient was seen by internal medicine on consultation, and today he was noted to have hyperkalemia, hypotension, worsening renal failure, acute kidney injury, worsening CPK, and clearly the patient is developing a picture of acute rhabdomyolysis and acute renal failure. Hence arrangements were made to transfer the patient to the ICU. And nephrology was consulted. I was notified about this patient shortly after he arrived to the ICU, he had no adequate venous access, apparently multiple nurses attempted to establish a peripheral IV access and the patient, and attempts were unsuccessful. Then I came in and eval uated the patient. I was able to establish a right femoral triple-lumen catheter, and a left brachial arterial line. And I recommended more fluids to be given, recommended more bicarb to be given, I also recommended close monitoring of his urine output, as well as his electrolytes, and recommended an ABG which is pending during my evaluation. Patient was noted to have WBC count of 12, hemoglobin of 15.8, potassium was 6.5, and his potassium was 5.1 yesterday. Bicarb came down from 21-10 over the last 24 hours, BUN up from 18- 31, creatinine up from 1.39-2.65 today, CPK went up from 45,000-60,000 today. Clearly the patient is developing a picture of acute rhabdomyolysis, and acute kidney injury. Nephrology is already on the case today, and recommended sodium bicarb drip, more fluids, and the patient is on antibiotics in the form of cefazolin. Reevaluated today on 03/23/21, patient remains in the ICU, I saw this patient last night on consultation. Patient is resting in bed, he is mostly on 4 L nasal cannula. Hemodynamically stable, not requiring any pressors. CPK is down to 50,000. Alkaline phosphatase is a 67, C-reactive protein is 16.8. ABG last night showed a pO2 of 92 pCO2 of 38 pH of 7.42. Patient is now off bicarb. Remains on IV fluid in the form of 0.9 normal saline at 150 mL per hour. His urine output seems to be picking up nicely, renal functioning is a bit worse today. But I expect that will improve with more fluids and decent urine output. Patient was seen by nephrology on consultation, no plans for hemodialysis at least at this point yet. Pulmonary-tony the patient denies any shortness of breath, he is on 4 L nasal cannula with O2 saturation in the high 90s. His chest x-ray showed mostly minimal atelectasis especially at the bases. Hence patient was advised to do more work of breathing and deep cough, and more incentive spirometer. Objective - Vital Signs Vital signs: Vital Signs Temp 97.6 F 03/23/21 08:00 Pulse 87 03/23/21 12:00 Resp 12 03/23/21 12:00 BP 136/93 03/22/21 22:00 Pulse Ox 97 03/23/21 12:00 Intake & Output 03/22/21 03/23/21 03/23/21 18:59 06:59 18:59 Intake Total 4490 4040 750 Output Total 600 290 135 Balance 3890 3750 615 Weight 79 kg Intake: IV 3800 750 Dextrose 5% in Water 1, 1800 750 000 ml @ 150 mls/hr IV . Q7H40M [facility] with Sodium Bicarb (1 Meq/ml) 150 ml Rx#:[id number] Sodium Chloride 0.9% 2, 2000 000 ml @ 999 mls/hr IV . Q2H1M [facility] Rx#:[id number] Intake, IV Titration 3090 Amount Sodium Chloride 0.9% 1, 1040 000 ml @ 130 mls/hr IV . Q7H42M [facility] Rx#:[id number] Sodium Chloride 0.9% 2, 2000 000 ml @ 999 mls/hr IV . Q2H1M ONE Rx#:[id number] ceFAZolin 2 gm In Sodium 50 Chloride 0.9% 50 ml @ 100 mls/hr IVPB Q8HR [facility] Rx# :[id number] Oral 1400 Tube Feeding 240 Output: Urine 600 290 135 Uretheral (Gerardo) 300 Other: Voiding Method Urinal Indwelling Catheter Indwelling Catheter ABP, PAP, CO, CI - Last Documented Arterial Blood Pressure 97/57 - Exam Physical Exam: Revealed a 70-year-old white male on 4 L nasal cannula, in no distress. Head: Atraumatic, normocephalic. HEENT:[Neck is supple.] [No neck masses.] [No thyromegaly.] [No JVD.] Chest: [Symmetrical chest expansion, diminished breath sounds at the bases. Cardiac Exam: [Distant S1 and S2, no S3 gallop. No murmur. Abdomen: [Soft, nontender, no megaly, no rebound, no guarding, normal bowel sounds.] Extremities: Right upper extremity swelling is noted. Right forearm is status post fasciotomy in 3 different compartments, and wound VAC is noted with serosanguineous material oxygen into the wound VAC.. Patient had lack of s ensation involving the right upper extremity. And lack of sensation in the right hand. Significant swelling is noted. Neurological Exam: Alert and oriented 3, no gross focal neurologic deficits. Psychiatric: Normal mood, affect and normal mental status examination. Musculoskeletal: As noted above with issues related to right forearm and right hand. - Labs CBC & Chem 7: 03/22/21 12:28 03/23/21 04:45 Labs: Abnormal Lab Results - Last 24 Hours (Table) 03/22/21 03/22/21 03/22/21 Range/Units 12:28 12:28 12:28 WBC 12.0 H (3.8-10.6) k/uL Neutrophils # 9.4 H (1.3-7.7) k/uL Monocytes # 1.2 H (0-1.0) k/uL D-Dimer (<0.60) mg/L FEU ABG Total CO2 (19-24) mmol/L ABG O2 Saturation (94-97) % Sodium (137-145) mmol/L BUN (9-20) mg/dL Creatinine (0.66-1.25) mg/dL Glucose (74-99) mg/dL POC Glucose (mg/dL) (75-99) mg/dL Plasma Lactic Acid Be 2.7 H* (0.7-2.0) mmol/L Calcium (8.4-10.2) mg/dL AST (17-59) U/L Lactate Dehydrogenase (313-618) U/L Creatine Kinase 83766 H* (55-170) U/L C-Reactive Protein (<1.0) mg/dL Total Protein (6.3-8.2) g/dL Albumin (3.5-5.0) g/dL 03/22/21 03/22/21 03/22/21 Range/Units 16:47 18:27 21:17 WBC (3.8-10.6) k/uL Neutrophils # (1.3-7.7) k/uL Monocytes # (0-1.0) k/uL D-Dimer (<0.60) mg/L FEU ABG Total CO2 (19-24) mmol/L ABG O2 Saturation (94-97) % Sodium (137-145) mmol/L BUN (9-20) mg/dL Creatinine (0.66-1.25) mg/dL Glucose (74-99) mg/dL POC Glucose (mg/dL) 217 H 257 H 189 H (75-99) mg/dL Plasma Lactic Acid Be (0.7-2.0) mmol/L Calcium (8.4-10.2) mg/dL AST (17-59) U/L Lactate Dehydrogenase (313-618) U/L Creatine Kinase (55-170) U/L C-Reactive Protein (<1.0) mg/dL Total Protein (6.3-8.2) g/dL Albumin (3.5-5.0) g/dL 03/22/21 03/23/21 03/23/21 Range/Units 22:23 04:45 04:45 WBC (3.8-10.6) k/uL Neutrophils # (1.3-7.7) k/uL Monocytes # (0-1.0) k/uL D-Dimer 2.31 H (<0.60) mg/L FEU ABG Total CO2 26 H (19-24) mmol/L ABG O2 Saturation 97.9 H (94-97) % Sodium 134 L (137-145) mmol/L BUN 42 H (9-20) mg/dL Creatinine 3.57 H (0.66-1.25) mg/dL Glucose 225 H (74-99) mg/dL POC Glucose (mg/dL) (75-99) mg/dL Plasma Lactic Acid Be (0.7-2.0) mmol/L Calcium 6.7 L (8.4-10.2) mg/dL AST 867 H (17-59) U/L Lactate Dehydrogenase 4032 H (313-618) U/L Creatine Kinase 64621 H* (55-170) U/L C-Reactive Protein 16.8 H (<1.0) mg/dL Total Protein 4.3 L (6.3-8.2) g/dL Albumin 2.1 L (3.5-5.0) g/dL 03/23/21 03/23/21 Range/Units 06:35 11:43 WBC (3.8-10.6) k/uL Neutrophils # (1.3-7.7) k/uL Monocytes # (0-1.0) k/uL D-Dimer (<0.60) mg/L FEU ABG Total CO2 (19-24) mmol/L ABG O2 Saturation (94-97) % Sodium (137-145) mmol/L BUN (9-20) mg/dL Creatinine (0.66-1.25) mg/dL Glucose (74-99) mg/dL POC Glucose (mg/dL) 196 H 168 H (75-99) mg/dL Plasma Lactic Acid Be (0.7-2.0) mmol/L Calcium (8.4-10.2) mg/dL AST (17-59) U/L Lactate Dehydrogenase (313-618) U/L Creatine Kinase (55-170) U/L C-Reactive Protein (<1.0) mg/dL Total Protein (6.3-8.2) g/dL Albumin (3.5-5.0) g/dL Microbiology - Last 24 Hours (Table) 03/21/21 18:34 Blood Culture - Preliminary Blood No Growth after 24 hours 03/21/21 18:34 Blood Culture - Preliminary Blood No Growth after 24 hours 03/22/21 03:36 Urine Culture - Preliminary Urine,Voided Assessment and Plan Assessment: Impression: Acute rhabdomyolysis secondary to forearm injury and compartment syndrome, status post fasciotomy. Postoperative day #2, patient is scheduled to undergo further surgery/fasciotomy today. Acute kidney injury secondary to rhabdomyolysis. Secondary to above. Acute lactic acidosis secondary to poor tissue perfusion of the right upper extremity and acute kidney injury. Acute hyperkalemia secondary to worsening metabolic acidosis, and worsening renal failure. Resolved. History of type 2 diabetes. History of Parkinson's disease. History of chronic and recurrent urinary tract infections History of diabetic neuropathy History of Guillain-Hoffman syndrome in 2007. Recommendation: Continue present supportive care measures. Discontinue sodium bicarb drip. Continue IV fluids at 1 50 mL per hour. Continue antibiotics. Continue GI prophylaxis and DVT prophylaxis. Continue to monitor closely his electrolytes, renal profile, and CPK. His CPKs seems to be trending down. However her renal functioning is a bit worse today. Prognosis is relatively guarded. We will continue to follow in the ICU. Time with Patient: Less than 30
[2021-03-23 12:51] LABS: Basophils % (A) 0 %; Eosinophils % (A) 0 %; HCT 42.7 % (39.0-53.0); HGB 13.6 gm/dL (13.0-17.5); Lymphocytes # (A) 0.8 k/uL (1.0-4.8); Lymphocytes % (A) 9 %; MCH 30.1 pg (25.0-35.0); MCHC 31.9 g/dL (31.0-37.0); MCV 94.5 fL (80.0-100.0); Mean Platelet Volume 10.7; Monocytes % (A) 11 %; Neutrophils # (A) 6.7 k/uL (1.3-7.7); Neutrophils % (A) 78 %; Platelet Count 152 k/uL (150-450); RBC 4.52 m/uL (4.30-5.90); RDW 14.7 % (11.5-15.5); WBC 8.6 k/uL (3.8-10.6)
--- NOTE | 2021-03-23 14:30 | P.PN ---
Subjective Progress Note Date: 03/23/21 70 years old male patient of Dr. Pennington with past medical history of Parkinson's, diabetes with diabetic neuropathy, hypothyroidism, calendar in 2007, chronic back pain with lumbar surgery 25 years ago comes in after he was found pinned in between his bed and the nightstand. Patient stated that he was rolling in his bed when he got stuck. According to the daughter bedside it appears patient has been stuck there for 2 days since he has not taken his medication. Patient was unable to reach anybody. Since nobody heard anything from the patient family called neighbors and friends to check on him. Patient was alert and was found suspended and there in between his bed and nightstand and unable to move himself from this position. Patient was released from his position and brought to the hospital. He is unable to move his right upper extremity with significant bruising and ecchymosis involving the forearm and the hand. Patient has no mobility involving his right arm , with contracture involving his hand.. Patient denies dizziness, confusion or recent falls. He states he was doing well and had no fever, chills, polyuria increased frequency or concern for sepsis. He did see a urologist at [facility] for his recurrent UTIs in January and was found to have a urine infection. Patient was admitted in in October for recurrent falls and UTI sepsis with E. coli resistant to fluoroquinolones. Patient is fairly active at baseline and goes to gym 4 times a week. Patient had a detailed workup including MRI, EEG and echocardiogram on his admission in October, echocardiogram suggest moderate concentric left ventricle hypertrophy with EF 55-60% on the valves with mild mitral and tricuspid regurgitation. Right ventricle pressures were less than 35mm. Vitals reviewed patient is afebrile pulse 63 respiratory rate 16 blood pressure 147/99 oxybutynin 95% on room air. Labs reviewed WBC 13.9 hemoglobin 17.4 sodium 136 potassium 6.1 bicarbonate 19 creatinine 1.35 and blood sugar 242 lactic acid 7.1 AST 660 ALT 259 with CK levels 395562 troponin [address] head and cervical spine showed right ICA hyperdense and recommended CT angiography to: For list exclude internal thrombosis no acute intracranial hemorrhage or mass effect degenerative and nonspecific white matter changes most typical remote ischemia slightly gait greater central competent of ventricle dilation can be associated with normal pressure hydrocephalus severe multilevel degenerative disc disease no fracture X-rays humerus was negative for fracture or dislocation. X-ray forearm suggestive no acute fracture diffuse soft tissue edema suggestive of posttraumatic or postinfectious edema shoulder x-ray on the right shows hairline fracture nondisplaced distal right clavicle with soft tissue edema. Chest x-ray with right lower lobe A to lactose is only infiltrated nodular density right lung may be related to superimposed structure short-term follow-up with repeat chest x-ray recommended. EKG suggested normal sinus rhythm with T-wave abnormality noted x-ray hand no fracture or dislocation but patient's patient's were flexed extensive soft tissue swelling noted 03/22: She and has been hypotensive and ordered for 2 more liters of IV fluid bolus. Blood culture and urine culture in progress. Patient has been afebrile, temperature actually on the lower side 96.7-97.5. Heart rate 78, blood pressure 110/71 after fluids, pulse ox 93% on 4 L nasal cannula. Repeat blood work reveals WBC 12.0. Sodium 133, potassium 6.5, chloride 112, CO2 10, BUN 31 and creatinine 2.65. Blood sugars running between 207 and 221. Repeat lactic acid 2.7. CK 60,158. AST 1424, ALT 87. Kayexalate 30 g, calcium gluconate 1 g with 10 units of regular insulin and D50 50 ML's all ordered. Consult added for nephrology. Orthopedics is planning on returning to or tomorrow to remove wound VAC and assess wounds and possible new wound VAC placement, possible closure partial closure of the wounds. Patient also followed by neurology and infectious disease. Patient is currently on 2 g every 12 hours 03/23: Due to worsening renal function and worsening rhabdomyolysis as well as hypotension yesterday, patient was moved into the intensive care unit. His uri ne output has been 20-30 ML's. He has been continued on IV fluids currently at 150 mL per hour. We will add in fluid bolus of 2 L. Patient has been seen by nephrology and was started on bicarb drip yesterday now discontinued. Continue to assess daily for need for renal replacement therapy. Vascular surgery is following for possible dialysis catheter. No further vascular intervention for the upper extremity at this time. Neurology has no further plans will recommend follow-up with his neurologist and will sign off the case for now. Renal ultrasound revealed suboptimal study without hydronephrosis bilaterally. ROS Constitutional: Denies chills, Denies fever, Denies lethargy, Denies malaise, Denies poor appetite, Denies weakness, Denies weight loss Eyes: denies decreased vision, denies diplopia, denies discharge, denies pain Ears: deny: decreased hearing Ears, nose, mouth and throat: Denies dental pain, Denies headache, Denies nasal discharge, Denies nose pain Cardiovascular: Denies chest pain, Denies decreased exercise tolerance, Denies edema, Denies high blood pressure, Denies irregular heart beat, Denies palpitations, Denies paroxysmal nocturnal dyspnea, Denies rapid heart beat, Denies shortness of breath Respiratory: Denies congestion, Denies cough, Denies cough with sputum, Denies dyspnea, Denies home oxygen, Denies wheezing Gastrointestinal: Denies abdominal pain, Denies change in bowel habits, Denies coffee ground emesis, Denies heartburn, Denies hematemesis, Denies hematochezia, Denies loss of appetite, Denies nausea, Denies vomiting Genitourinary: Denies dysuria, Denies flank pain, Denies kidney stones, Denies menorrhagia, Denies urgency, Denies urinary frequency Musculoskeletal: Denies gait dysfunction, Denies limitation of motion, Denies morning stiffness, Denies muscle cramps endorses contracture, swelling involving right upper extremity Integumentary: Denies rash, Denies wounds, Denies brittle nails, Denies change in hair/nails, Denies darkening of skin Neurological: Denies balance difficulties, no change in speech, Denies double vision, Denies gait dysfunction, Denies loss of vision, Denies motor disturbance, Denies numbness, Denies paralysis, induces tingling involving the dorsal aspect of foot Denies seizures Psychiatric: Denies anxiety, Denies depression Endocrine: Denies excessive sweating, Denies excessive thirst, Denies high blood sugars, Denies palpitations Hematologic/Lymphatic: Denies easy bruising, Denies lymphadenopathy Physical exam - Constitutional General appearance: Alert and oriented 3 cooperative, no acute distress, obese - EENT Eyes: anicteric sclerae, PERRLA, normal appearance ENT: hearing grossly normal - Neck Neck: no lymphadenopathy, normal ROM, no other, no rigidity, no stridor, no thyromegaly - Respiratory Respiratory: bilateral: CTA, negative: diminished, dullness, rales, rhonchi - Cardiovascular Rhythm: regular Heart sounds: normal: S1, S2 Abnormal Heart Sounds: no systolic murmur, no diastolic murmur, no rub, no S3 Gallop, no S4 Gallop, no click, no other - Gastrointestinal General gastrointestinal: normal bowel sounds, soft nontender - Integumentary Integumentary: Significant bruising and ecchymosis involving right upper extremity involving the hand, forearm and arm with significant swelling. Patient has no movement of the right arm. - Neurologic Neurologic: 0/5 on flexion/extension /internal rotation and external rotation involving right upper extremity, lack of sensation involving the right forearm. Sensation intact in the upper arm. tingling and numbness involving the dorsal aspect of both feet - Musculoskeletal Musculoskeletal: gait not assessed, , right upper extremity with no active movement, hand in flexion with diffuse swelling involving the digits, wrist, forearm and upper arm and axilla. Nontender to touch peripheral pulses are diminished involving the right upper extremity. No mobility involving shoulder, elbow or wrist or fingers. Lack of sensation involving the right upper extremity. Passive shoulder movement present with no significant pain. No significant pain involving forearm or hand. capillary refill close to 2 seconds. Peripheral pulses are diminished compared to the other extremity. - Psychiatric Psychiatric: A&O x's 3, appropriate affect Assessment and plan Right forearm compartment syndrome -Status post dorsal and volar fasciotomies with Dr. Paez, 03/21. Vascular surgery Dr. Gerardo is not planning any further intervention. Patient is to return to the or today possibly. -Patient is cleared for surgery but carries a risk of 2.4% for any acute cardiac event involving cardiac nonfatal AL or nonfatal cardiac arrest. His surgery is eminent to save his limb. Patient echocardiogram from October 2020 denies any history of previous AL with ejection fraction of 55-60%. - Repeat surgical intervention scheduled for 03/23 Acute rhabdomyolysis secondary to injury -Status post 2 L IV fluids. Continue IV fluids at 150 mL per hour -Repeat CK tomorrow -Status post bicarb drip -Fluid bolus of 2 L ordered for today. Distal nondisplaced right clavicle fracture Acute COVID19 infection - Continue isolation Acute metabolic encephalopathy secondary to sepsis and acute kidney injury, rhab domyolysis, Dilaudid Consult with neurology appreciated Stroke is not suspected Vitamin B12 1000 g daily added by neurology Hyperkalemia secondary to Rhabdomyolysis - Repeat calcium gluconate 1 g, 10 units of regular insulin and 50 ML's of D50. - Consult nephrology - EKG suggestive of T-wave changes Acute lactic acidosis secondary to hypovolemia - Repeat lactic acid - Status post 2 L IV fluids - Continue IV fluids at 1 30 mL/h. Patient may need further boluses Acute kidney injury secondary to rhabdomyolysis secondary to ATN - Continue IV fluids with normal saline at 130 mL per hour - Baseline creatinine 0.8 -Avoid nephrotoxic agent -Hold metformin -Consult nephrology appreciated Acute transaminitis - Liver enzymes have worsened since last admission -Continue perfusion with IV fluids Type II uncontrolled diabetes - Last A1c 7.2 - Hold metformin - Continue insulin sliding Scale and Lantus at 5 units at at bedtime History of UTI - Would recommend urinalysis as patient was septic in October 2020 and is currently undergoing treatment with urologist according to the daughter bedside. History of Sepsis secondary to acute urinary tract infection In October 2020 - Unclear if patient fall was a result of confusion. Infectious metabolic encephalopathy - resolved - CT head and neck suggestive of hyperdense involving right carotid. We will evaluate with CT angiogram head and neck.. Also mentioned normal pressure hydrocephalus on the CAT scan though MRI was negative for hydrocephalus in October Frequent falls possibly related to worsening Parkinson's, exacerbated by sepsis. - Does PT as outpatient. We'll evaluate for rehab once patient is stableDiabetic polyneuropathy. Lyrica 225 mg twice daily Parkinson's. -Continue Sinemet 251 101-1/2 3 times daily. Hypothyroidism. -Continue levothyroxine 150 Scott grams daily. Guillain-[place] syndrome in 2007. Benign prostatic hypertrophy. -Continue Flomax or 0.4 mg daily. GI prophylaxis. Protonix. DVT prophylaxis. Heparin subcu. DISCHARGE PLAN Home, to be determined. PT and OT consults. Impression and plan of care have been directed as dictated by the signing physician. Sophie Hitchcock nurse practitioner acting as scribe for signing physician. Objective - Vital Signs Vital signs: Vital Signs Temp 97.6 F 03/23/21 08:00 Pulse 90 03/23/21 11:00 Resp 13 03/23/21 11:00 BP 136/93 03/22/21 22:00 Pulse Ox 98 03/23/21 11:00 Intake & Output 03/22/21 03/23/21 03/23/21 18:59 06:59 18:59 Intake Total 4490 4040 750 Output Total 600 290 135 Balance 3890 3750 615 Weight 79 kg Intake: IV 3800 750 Dextrose 5% in Water 1, 1800 750 000 ml @ 150 mls/hr IV . Q7H40M [facility] with Sodium Bicarb (1 Meq/ml) 150 ml Rx#:[id number] Sodium Chloride 0.9% 2, 2000 000 ml @ 999 mls/hr IV . Q2H1M ONE Rx#:[id number] Intake, IV Titration 3090 Amount Sodium Chloride 0.9% 1, 1040 000 ml @ 130 mls/hr IV . Q7H42M [facility] Rx#:[id number] Sodium Chloride 0.9% 2, 2000 000 ml @ 999 mls/hr IV . Q2H1M ONE Rx#:[id number] ceFAZolin 2 gm In Sodium 50 Chloride 0.9% 50 ml @ 100 mls/hr IVPB Q8HR [facility] Rx# :[id number] Oral 1400 Tube Feeding 240 Output: Urine 600 290 135 Uretheral (Gerardo) 300 Other: Voiding Method Urinal Indwelling Catheter Indwelling Catheter ABP, PAP, CO, CI - Last Documented Arterial Blood Pressure 104/59 - Labs CBC & Chem 7: 03/23/21 04:45 03/23/21 04:45 Labs: Abnormal Lab Results - Last 24 Hours (Table) 03/22/21 03/22/21 03/22/21 Range/Units 11:04 12:28 12:28 WBC 12.0 H (3.8-10.6) k/uL Neutrophils # 9.4 H (1.3-7.7) k/uL Monocytes # 1.2 H (0-1.0) k/uL D-Dimer (<0.60) mg/L FEU ABG Total CO2 (19-24) mmol/L ABG O2 Saturation (94-97) % Sodium 133 L (137-145) mmol/L Potassium 6.5 H* (3.5-5.1) mmol/L Chloride 112 H (98-107) mmol/L Carbon Dioxide 10 L (22-30) mmol/L BUN 31 H (9-20) mg/dL Creatinine 2.65 H (0.66-1.25) mg/dL Glucose 244 H (74-99) mg/dL POC Glucose (mg/dL) (75-99) mg/dL Plasma Lactic Acid Be 2.7 H* (0.7-2.0) mmol/L Calcium 7.2 L (8.4-10.2) mg/dL AST 1424 H (17-59) U/L ALT 87 H (4-49) U/L Lactate Dehydrogenase (313-618) U/L Creatine Kinase (55-170) U/L C-Reactive Protein (<1.0) mg/dL Total Protein 5.6 L (6.3-8.2) g/dL Albumin 2.6 L (3.5-5.0) g/dL 03/22/21 03/22/21 03/22/21 Range/Units 12:28 16:47 18:27 WBC (3.8-10.6) k/uL Neutrophils # (1.3-7.7) k/uL Monocytes # (0-1.0) k/uL D-Dimer (<0.60) mg/L FEU ABG Total CO2 (19-24) mmol/L ABG O2 Saturation (94-97) % Sodium (137-145) mmol/L Potassium (3.5-5.1) mmol/L Chloride (98-107) mmol/L Carbon Dioxide (22-30) mmol/L BUN (9-20) mg/dL Creatinine (0.66-1.25) mg/dL Glucose (74-99) mg/dL POC Glucose (mg/dL) 217 H 257 H (75-99) mg/dL Plasma Lactic Acid Be (0.7-2.0) mmol/L Calcium (8.4-10.2) mg/dL AST (17-59) U/L ALT (4-49) U/L Lactate Dehydrogenase (313-618) U/L Creatine Kinase 46101 H* (55-170) U/L C-Reactive Protein (<1.0) mg/dL Total Protein (6.3-8.2) g/dL Albumin (3.5-5.0) g/dL 03/22/21 03/22/21 03/23/21 Range/Units 21:17 22:23 04:45 WBC (3.8-10.6) k/uL Neutrophils # (1.3-7.7) k/uL Monocytes # (0-1.0) k/uL D-Dimer (<0.60) mg/L FEU ABG Total CO2 26 H (19-24) mmol/L ABG O2 Saturation 97.9 H (94-97) % Sodium 134 L (137-145) mmol/L Potassium (3.5-5.1) mmol/L Chloride (98-107) mmol/L Carbon Dioxide (22-30) mmol/L BUN 42 H (9-20) mg/dL Creatinine 3.57 H (0.66-1.25) mg/dL Glucose 225 H (74-99) mg/dL POC Glucose (mg/dL) 189 H (75-99) mg/dL Plasma Lactic Acid Be (0.7-2.0) mmol/L Calcium 6.7 L (8.4-10.2) mg/dL AST 867 H (17-59) U/L ALT (4-49) U/L Lactate Dehydrogenase 4032 H (313-618) U/L Creatine Kinase 47825 H* (55-170) U/L C-Reactive Protein 16.8 H (<1.0) mg/dL Total Protein 4.3 L (6.3-8.2) g/dL Albumin 2.1 L (3.5-5.0) g/dL 03/23/21 03/23/21 03/23/21 Range/Units 04:45 06:35 11:43 WBC (3.8-10.6) k/uL Neutrophils # (1.3-7.7) k/uL Monocytes # (0-1.0) k/uL D-Dimer 2.31 H (<0.60) mg/L FEU ABG Total CO2 (19-24) mmol/L ABG O2 Saturation (94-97) % Sodium (137-145) mmol/L Potassium (3.5-5.1) mmol/L Chloride (98-107) mmol/L Carbon Dioxide (22-30) mmol/L BUN (9-20) mg/dL Creatinine (0.66-1.25) mg/dL Glucose (74-99) mg/dL POC Glucose (mg/dL) 196 H 168 H (75-99) mg/dL Plasma Lactic Acid Be (0.7-2.0) mmol/L Calcium (8.4-10.2) mg/dL AST (17-59) U/L ALT (4-49) U/L Lactate Dehydrogenase (313-618) U/L Creatine Kinase (55-170) U/L C-Reactive Protein (<1.0) mg/dL Total Protein (6.3-8.2) g/dL Albumin (3.5-5.0) g/dL Microbiology - Last 24 Hours (Table) 03/21/21 18:34 Blood Culture - Preliminary Blood No Growth after 24 hours 03/21/21 18:34 Blood Culture - Preliminary Blood No Growth after 24 hours 03/22/21 03:36 Urine Culture - Preliminary Urine,Voided
--- NOTE | 2021-03-23 15:05 | P.PN ---
Subjective Progress Note Date: 03/23/21 Principal diagnosis: Right forearm compartment syndrome , covid 19 infection Patient is a 70-year-old male who was brought into the hospital after the patient was started between bed and nightstand for 2 days noticed to have compartment syndrome right forearm status post fasciotomy 3, patient was transferred to the ICU last night because of worsening hypertension. On today's evaluation, and that is 03/23/2021 the patient denies having any fever or any chills, the patient is feeling better the right forearm. Insulin is currently controlled, patient denies having any chest pain shortness of breath minimal cough no nausea no vomiting no abdominal pain and no diarrhea Objective - Vital Signs Vital signs: Vital Signs Temp 97.6 F 03/23/21 08:00 Pulse 80 03/23/21 14:00 Resp 13 03/23/21 14:00 BP 136/93 03/22/21 22:00 Pulse Ox 97 03/23/21 14:00 Intake & Output 03/22/21 03/23/21 03/23/21 18:59 06:59 18:59 Intake Total 4490 4040 3200 Output Total 600 290 210 Balance 3890 3750 2990 Weight 79 kg Intake: IV 3800 1200 Dextrose 5% in Water 1, 1800 1200 000 ml @ 150 mls/hr IV . Q7H40M [facility] with Sodium Bicarb (1 Meq/ml) 150 ml Rx#:[id number] Sodium Chloride 0.9% 2, 2000 000 ml @ 999 mls/hr IV . Q2H1M [facility] Rx#:[id number] Intake, IV Titration 3090 2000 Amount Sodium Chloride 0.9% 1, 1040 000 ml @ 130 mls/hr IV . Q7H42M [facility] Rx#:[id number] Sodium Chloride 0.9% 1, 2000 000 ml @ 999 mls/hr IV . Q1H1M [facility] Rx#:[id number] Sodium Chloride 0.9% 2, 2000 000 ml @ 999 mls/hr IV . Q2H1M [facility] Rx#:[id number] ceFAZolin 2 gm In Sodium 50 Chloride 0.9% 50 ml @ 100 mls/hr IVPB Q8HR [facility] Rx# :[id number] Oral 1400 Tube Feeding 240 Output: Urine 600 290 210 Uretheral (Gerardo) 300 Other: Voiding Method Urinal Indwelling Catheter Indwelling Catheter ABP, PAP, CO, CI - Last Documented Arterial Blood Pressure 121/64 - Exam GENERAL DESCRIPTION:[ Patient is awake and alert in no distress] HEENT: [Oral mucosa is dry and no pharyngeal erythema] EYES : [No pallor or scleral icterus] RESPIRATORY SYSTEM: [Unlabored breathing decreased breath sounds at the base] CARDIA VASCULAR SYSTEM: [S1-S2 regular rate and rhythm no murmur] GI: [Abdominal soft there's no tenderness no organomegaly] EXTREMITIES: [Right forearm currently covered with a wound VAC there's no significant swelling no redness] - Labs CBC & Chem 7: 03/23/21 04:45 03/23/21 04:45 Labs: Abnormal Lab Results - Last 24 Hours (Table) 03/22/21 03/22/21 03/22/21 Range/Units 16:47 18:27 21:17 Lymphocytes # (1.0-4.8) k/uL D-Dimer (<0.60) mg/L FEU ABG Total CO2 (19-24) mmol/L ABG O2 Saturation (94-97) % Sodium (137-145) mmol/L BUN (9-20) mg/dL Creatinine (0.66-1.25) mg/dL Glucose (74-99) mg/dL POC Glucose (mg/dL) 217 H 257 H 189 H (75-99) mg/dL Calcium (8.4-10.2) mg/dL AST (17-59) U/L Lactate Dehydrogenase (313-618) U/L Creatine Kinase (55-170) U/L C-Reactive Protein (<1.0) mg/dL Total Protein (6.3-8.2) g/dL Albumin (3.5-5.0) g/dL Procalcitonin (0.02-0.09) ng/mL 03/22/21 03/23/21 03/23/21 Range/Units 22:23 04:45 04:45 Lymphocytes # (1.0-4.8) k/uL D-Dimer (<0.60) mg/L FEU ABG Total CO2 26 H (19-24) mmol/L ABG O2 Saturation 97.9 H (94-97) % Sodium 134 L (137-145) mmol/L BUN 42 H (9-20) mg/dL Creatinine 3.57 H (0.66-1.25) mg/dL Glucose 225 H (74-99) mg/dL POC Glucose (mg/dL) (75-99) mg/dL Calcium 6.7 L (8.4-10.2) mg/dL AST 867 H (17-59) U/L Lactate Dehydrogenase 4032 H (313-618) U/L Creatine Kinase 03386 H* (55-170) U/L C-Reactive Protein 16.8 H (<1.0) mg/dL Total Protein 4.3 L (6.3-8.2) g/dL Albumin 2.1 L (3.5-5.0) g/dL Procalcitonin 2.67 H (0.02-0.09) ng/mL 03/23/21 03/23/21 03/23/21 Range/Units 04:45 04:45 06:35 Lymphocytes # 0.8 L (1.0-4.8) k/uL D-Dimer 2.31 H (<0.60) mg/L FEU ABG Total CO2 (19-24) mmol/L ABG O2 Saturation (94-97) % Sodium (137-145) mmol/L BUN (9-20) mg/dL Creatinine (0.66-1.25) mg/dL Glucose (74-99) mg/dL POC Glucose (mg/dL) 196 H (75-99) mg/dL Calcium (8.4-10.2) mg/dL AST (17-59) U/L Lactate Dehydrogenase (313-618) U/L Creatine Kinase (55-170) U/L C-Reactive Protein (<1.0) mg/dL Total Protein (6.3-8.2) g/dL Albumin (3.5-5.0) g/dL Procalcitonin (0.02-0.09) ng/mL 03/23/21 Range/Units 11:43 Lymphocytes # (1.0-4.8) k/uL D-Dimer (<0.60) mg/L FEU ABG Total CO2 (19-24) mmol/L ABG O2 Saturation (94-97) % Sodium (137-145) mmol/L BUN (9-20) mg/dL Creatinine (0.66-1.25) mg/dL Glucose (74-99) mg/dL POC Glucose (mg/dL) 168 H (75-99) mg/dL Calcium (8.4-10.2) mg/dL AST (17-59) U/L Lactate Dehydrogenase (313-618) U/L Creatine Kinase (55-170) U/L C-Reactive Protein (<1.0) mg/dL Total Protein (6.3-8.2) g/dL Albumin (3.5-5.0) g/dL Procalcitonin (0.02-0.09) ng/mL Microbiology - Last 24 Hours (Table) 03/21/21 18:34 Blood Culture - Preliminary Blood No Growth after 24 hours 03/21/21 18:34 Blood Culture - Preliminary Blood No Growth after 24 hours 03/22/21 03:36 Urine Culture - Preliminary Urine,Voided Assessment and Plan Assessment: Patient with right forearm compartment syndrome traumatic in this patient with status post fasciotomy and wound VAC application to patient will go back to the OR today for evaluation of his wounds, patient is afebrile and his white count is normalized, blood culture has been negative so far to continue with this episode and monitor his clinical course closely 2-patient did have a positive covid test, no significant respiratory symptoms continue with current supportive treatment Time with Patient: Less than 30
[2021-03-23] MEDS ORDERED: GLYCOPYRROLATE 0.2 MG/ML 2 ML VIAL ONE (17:10)
[2021-03-23] MEDS ORDERED: fentaNYL (PF) 50 MCG/ML 2 ML AMP ONE (17:10)
[2021-03-23] MEDS ORDERED: ePHEDrine 50 MG/ML 1 ML AMP ONE (17:10)
[2021-03-23] MEDS ORDERED: ONDANSETRON 4 MG/2 ML VIAL ONE (17:10)
[2021-03-23] MEDS ORDERED: NEOSTIGMINE 1 MG/ML 10 ML VIAL ONE (17:10)
[2021-03-23] MEDS ORDERED: LIDOCAINE 1% INJ 10MG/ML (20 ML MDV) ONE (17:10)
[2021-03-23] MEDS ORDERED: ROCURONIUM 10 MG/ML (5 ML VIAL) IV ONE (17:10)
[2021-03-23] MEDS ORDERED: PROPOFOL 10 MG/ML 20 ML VIAL IV ONE (17:10)
[2021-03-23] MEDS ORDERED: PHENYLEPHRINE-0.9% NACL SYG 1,000 MCG/10 ML SYRINGE ONE (17:10)
[2021-03-23] MEDS ORDERED: IV FLUID CONTINUATION 800 ML IV ONE (17:15)
--- NOTE | 2021-03-23 18:19 | P.OP ---
Date of Procedure: 03/23/21 Procedure(s) Performed: PREOPERATIVE DIAGNOSES: 1. Right forearm compartment syndrome status post compartment fasciotomies POSTOPERATIVE DIAGNOSES: 1. Right forearm compartment syndrome status post compartment fasciotomies PROCEDURES PERFORMED: 1. Right forearm 3 compartment debridement and irrigation of wound (sharp debridement using knife of devitalized muscle) 2. Application of wound VAC (negative pressure wound dressing) to forearm fasciotomy wounds ANESTHESIA: Gen. SECURITY DOOR INSTALLER: Sraahi Pena PA-C (assistance with exposure, hemostasis, retraction, fixation, closure, dressing, splint) COMPLICATIONS: None ESTIMATED BLOOD LOSS: 10 mL. DISPOSITION: To post-anesthesia care unit INDICATIONS: Nilay is a 70-year-old male who previously had forearm compartment fasciotomies performed Friday who returns today for debridement irrigation and possible closure of fasciotomies. His status is guarded as he has increased creatinine due to rhabdomyolysis but has maintained what appears to be adequate blood supply to the hand with palpable and dopplerable radial pulses. He is currently in the ICU. I described the steps of the operation and potential risks and complications as being inclusive of, but not limited to: Bleeding, infection, scarring, discomfort, blood vessel and/or nerve damage, need for skin grafting, persistent pain, ischemic contracture, stiffness of elbow wrist and/or fingers, weakness, permanent nerve damage, , loss of limb, and other risks. The patient is aware of these risks and wishes to proceed with surgery. The consent form has been signed. PROCEDURE: After appropriate consent was obtained, the patient was taken to the operating room placed in the supine position. General anesthesia was initiated, and after confirmation of adequate anesthesia, the patient was carefully positioned. Care was taken to make sure that all pressure points were adequately padded. Prepping and draping were completed in the usual aseptic fashion using ChloraPrep. Timeout was called, confirming patient identity, side, procedure, and administration of antibiotics. No tourniquet was used. Wounds were visually inspected, and devitalized-appearing muscle on the volar side consisting of superficial flexor carpi radialis muscle fibers were debrided as they were dusky in appearance, noncontractile and not bleeding. Muscle was debrided back to bleeding tissue. Elsewhere, muscle appeared relatively healthy with bleeding, contractile under interrogation with Bovie, and of satisfactory consistency. Intraoperative Doppler was performed on both the brachial artery and the radial artery both were found to be normal and both pulses were palpable. The amount of swelling of the muscles was considerable especially on the volar side and no closure could be contemplated at this time. Similarly, the dorsal fasciotomy wound was gaping and wide and closure could not be performed without undue tension on the skin. Therefore thorough irrigation of the wound on both sides was performed using pulsatile lavage. For the purposes of wound care, the volar wound measured 23 cm x 9.5 cm in greatest dimension. The dorsal wound measured 20 cm x 4.5 cm in greatest dimension. Both wounds were then thoroughly irrigated as above with normal saline and hemostasis was obtained using electrocautery. A large wound VAC was applied to both the dorsal and volar wounds with a bridge sponge between. Adequate seal was confirmed. Radial pulse 1+ at the conclusion of the case. Fingers were pink with capillary refill approximately 2 seconds. Patient tolerated the procedure well and taken to recovery room in stable condition.
[2021-03-23 20:16] LABS: Glucose,Whole Blood 143 mg/dL (75-99)
[2021-03-23] MEDS: INSULIN DETEMIR (LEVEMIR) 100 UNIT/ML SYR SQ SCH (20:21)
[2021-03-23] MEDS: ACETAMINOPHEN TAB 325 MG TAB PO PRN (23:24)
[2021-03-24 04:49] LABS: Basophils % (A) 0 %; Eosinophils # (A) 0.1 k/uL (0-0.7); Eosinophils % (A) 1 %; HCT 36.2 % (39.0-53.0); HGB 11.1 gm/dL (13.0-17.5); Lymphocytes # (A) 0.8 k/uL (1.0-4.8); Lymphocytes % (A) 13 %; MCH 28.1 pg (25.0-35.0); MCHC 30.5 g/dL (31.0-37.0); MCV 91.8 fL (80.0-100.0); Mean Platelet Volume 9.5; Monocytes # (A) 0.7 k/uL (0-1.0); Monocytes % (A) 10 %; Neutrophils # (A) 4.7 k/uL (1.3-7.7); Neutrophils % (A) 74 %; Platelet Count 151 k/uL (150-450); RBC 3.94 m/uL (4.30-5.90); RDW 14.2 % (11.5-15.5); WBC 6.4 k/uL (3.8-10.6)
[2021-03-24] MEDS: SODIUM CHLORIDE 0.9% 1,000 ML IV SCH ×3 (05:48→16:01)
[2021-03-24 05:54] LABS: Calcium 6.2 mg/dL (8.4-10.2)
[2021-03-24] MEDS: LEVOTHYROXINE 75 MCG TAB PO SCH (06:32)
[2021-03-24 06:46] LABS: Glucose,Whole Blood 115 mg/dL (75-99)
[2021-03-24] MEDS: INSULIN ASPART (NovoLOG) 100 UNIT/ML VIAL SQ SCH ×4 (06:49→21:05)
[2021-03-24] MEDS: ZINC SULFATE 220 MG CAP PO SCH (08:50)
[2021-03-24] MEDS: HYDROcodone/APAP 5-325MG 1 EACH TAB PO PRN (08:50)
[2021-03-24] MEDS: CYANOCOBALAMIN 500 MCG TAB PO SCH (08:51)
[2021-03-24] MEDS: TAMSULOSIN 0.4 MG CAP.ER.24H PO SCH (08:51)
[2021-03-24] MEDS: PREGABALIN 75 MG CAP PO SCH ×3 (08:51→21:05)
[2021-03-24] MEDS: MULTIVITAMINS, THERA 1 EACH TAB PO SCH (08:51)
[2021-03-24] MEDS: ASCORBIC ACID 500 MG TAB PO SCH (08:51)
[2021-03-24] MEDS: CARBIDOPA-LEVODOPA 25-100 MG 1 EACH TAB PO SCH ×3 (08:51→21:05)
--- NOTE | 2021-03-24 08:51 | P.PN ---
Subjective Progress Note Date: 03/24/21 This patient is a 70-year-old male who is status-post right forearm 3 compartment debridement and irrigation of wounds, and application of wound VAC to forearm fasciotomy wounds on 03/23/[address] Paez. Patient underwent initial fasciotomy of right forearm on 03/21/21 for compartment syndrome. Today's post-operative day #1. The patient is seen and examined bedside in the ICU. Patient states he has no sensation to his right hand or fingers. He states his pain is well-controlled at this time. He has no complaints or concerns at the time of exam. Vital signs are stable. Objective - Vital Signs Vital signs: Vital Signs Temp 97.5 F L 03/23/21 16:00 Pulse 74 03/24/21 07:00 Resp 14 03/24/21 07:00 BP 136/93 03/22/21 22:00 Pulse Ox 98 03/24/21 07:00 Intake & Output 03/23/21 03/24/21 03/24/21 18:59 06:59 18:59 Intake Total 4100 1800 150 Output Total 780 950 40 Balance 3320 850 110 Weight 123.3 kg Intake: IV 2100 1800 150 Dextrose 5% in Water 1, 1500 1800 150 000 ml @ 150 mls/hr IV . Q7H40M ANABEL with Sodium Bicarb (1 Meq/ml) 150 ml Rx#:[id number] Intake, IV Titration 2000 Amount Sodium Chloride 0.9% 1, 2000 000 ml @ 999 mls/hr IV . Q1H1M ONE Rx#:[id number] Output: Drainage 500 500 Right Arm 500 500 Urine 270 450 40 Estimated Blood Loss 10 Other: Voiding Method Indwelling Catheter Indwelling Catheter ABP, PAP, CO, CI - Last Documented Arterial Blood Pressure 123/21 - Exam On examination, the patient is sitting up in bed in no apparent distress. He is alert and oriented 3. On inspection of the right upper extremity, there is diffuse swelling of the extremity, although the compartments do feel soft. There are 2 open wounds of the forearm with a wound VAC in place which appears to be functioning well. The wound VAC does have a good seal at this time. The patient has an easily palpable radial pulse. Capillary refill of all fingers and thumb are less than 2 seconds. Patient has no active motion of the fingers. Per patient, he is no sensation of the right hand or fingers. - Labs CBC & Chem 7: 03/24/21 04:40 03/24/21 04:40 Labs: Abnormal Lab Results - Last 24 Hours (Table) 03/23/21 03/23/21 03/23/21 Range/Units 04:45 04:45 11:43 RBC (4.30-5.90) m/uL Hgb (13.0-17.5) gm/dL Hct (39.0-53.0) % MCHC (31.0-37.0) g/dL Lymphocytes # 0.8 L (1.0-4.8) k/uL Sodium (137-145) mmol/L BUN (9-20) mg/dL Creatinine (0.66-1.25) mg/dL Glucose (74-99) mg/dL POC Glucose (mg/dL) 168 H (75-99) mg/dL Calcium (8.4-10.2) mg/dL Creatine Kinase (55-170) U/L Procalcitonin 2.67 H (0.02-0.09) ng/mL 03/23/21 03/24/21 03/24/21 Range/Units 20:14 04:40 04:40 RBC 3.94 L (4.30-5.90) m/uL Hgb 11.1 L (13.0-17.5) gm/dL Hct 36.2 L (39.0-53.0) % MCHC 30.5 L (31.0-37.0) g/dL Lymphocytes # 0.8 L (1.0-4.8) k/uL Sodium 136 L (137-145) mmol/L BUN 47 H (9-20) mg/dL Creatinine 4.31 H (0.66-1.25) mg/dL Glucose 133 H (74-99) mg/dL POC Glucose (mg/dL) 143 H (75-99) mg/dL Calcium 6.2 L* (8.4-10.2) mg/dL Creatine Kinase 35830 H* (55-170) U/L Procalcitonin (0.02-0.09) ng/mL 03/24/21 Range/Units 06:44 RBC (4.30-5.90) m/uL Hgb (13.0-17.5) gm/dL Hct (39.0-53.0) % MCHC (31.0-37.0) g/dL Lymphocytes # (1.0-4.8) k/uL Sodium (137-145) mmol/L BUN (9-20) mg/dL Creatinine (0.66-1.25) mg/dL Glucose (74-99) mg/dL POC Glucose (mg/dL) 115 H (75-99) mg/dL Calcium (8.4-10.2) mg/dL Creatine Kinase (55-170) U/L Procalcitonin (0.02-0.09) ng/mL Microbiology - Last 24 Hours (Table) 03/23/21 04:45 Blood Culture - Preliminary Blood No Growth after 24 hours 03/21/21 18:34 Blood Culture - Preliminary Blood No Growth after 48 hours 03/21/21 18:34 Blood Culture - Preliminary Blood No Growth after 48 hours 03/22/21 03:36 Urine Culture - Preliminary Urine,Voided Gram Neg Bacilli Assessment and Plan Assessment: Status-post right forearm 3 compartment debridement and irrigation of wounds, and application of wound VAC to forearm fasciotomy wounds on 03/23/[address] Paez. Post-operative day #1. Patient underwent initial fasciotomy of right forearm on 03/21/21 for compartment syndrome. Plan: - Patient was discussed in detail with the nursing staff. Keep wound VAC in place at this time. We are planning for a repeat irrigation and debridement, and wound VAC change in the operating room on 03/26/21. - Pain management as needed. - Medical management per multiple medical specialties.
[2021-03-24] MEDS: HEPARIN SODIUM,PORCINE/PF 5,000 UNIT/0.5 ML SYRINGE SQ SCH ×2 (08:52→21:05)
[2021-03-24 11:32] LABS: Glucose,Whole Blood 180 mg/dL (75-99)
--- NOTE | 2021-03-24 12:35 | P.PN ---
Subjective Progress Note Date: 03/24/21 patient is seen and examined He remains unable to move his right upper extremity and no sensory. Doing well otherwise. Went back to OR yesterday for vac change Objective - Vital Signs Vital signs: Vital Signs Temp 98 F 03/24/21 12:00 Pulse 70 03/24/21 12:00 Resp 12 03/24/21 12:00 BP 133/94 03/24/21 12:00 Pulse Ox 98 03/24/21 12:00 Intake & Output 03/23/21 03/24/21 03/24/21 18:59 06:59 18:59 Intake Total 4100 1800 1200 Output Total 780 950 190 Balance 3320 850 1010 Weight 123.3 kg Intake: IV 2100 1800 150 Dextrose 5% in Water 1, 1500 1800 150 000 ml @ 150 mls/hr IV . Q7H40M ANABEL with Sodium Bicarb (1 Meq/ml) 150 ml Rx#:[id number] Intake, IV Titration 2000 750 Amount Sodium Chloride 0.9% 1, 750 000 ml @ 150 mls/hr IV . Q6H40M ANABEL Rx#:[id number] Sodium Chloride 0.9% 1, 2000 000 ml @ 999 mls/hr IV . Q1H1M ONE Rx#:[id number] Oral 300 Output: Drainage 500 500 Right Arm 500 500 Urine 270 450 190 Estimated Blood Loss 10 Other: Voiding Method Indwelling Catheter Indwelling Catheter Indwelling Catheter ABP, PAP, CO, CI - Last Documented Arterial Blood Pressure 120/63 - Exam Gen. a pleasant cooperative male in no acute distress. Undergoing renal ultrasound HEENT is normal cephalic, atraumatic, extraocular motion intact. Heart appears regular this time. Lungs are clear bilaterally. Abdomen is soft, obese, nontender. He has normal motor function of his lower extremities. Normal left upper extremity. Right upper extremitycontinues to be swollen. Right forearm fasciotomy with wound VAC. Cyanotic changes to the hand, unable to move. Palpable radial pulses - Labs CBC & Chem 7: 03/24/21 04:40 03/24/21 04:40 Labs: Abnormal Lab Results - Last 24 Hours (Table) 03/23/21 03/23/21 03/23/21 Range/Units 04:45 04:45 20:14 RBC (4.30-5.90) m/uL Hgb (13.0-17.5) gm/dL Hct (39.0-53.0) % MCHC (31.0-37.0) g/dL Lymphocytes # 0.8 L (1.0-4.8) k/uL Sodium (137-145) mmol/L BUN (9-20) mg/dL Creatinine (0.66-1.25) mg/dL Glucose (74-99) mg/dL POC Glucose (mg/dL) 143 H (75-99) mg/dL Calcium (8.4-10.2) mg/dL Creatine Kinase (55-170) U/L Procalcitonin 2.67 H (0.02-0.09) ng/mL 03/24/21 03/24/21 03/24/21 Range/Units 04:40 04:40 06:44 RBC 3.94 L (4.30-5.90) m/uL Hgb 11.1 L (13.0-17.5) gm/dL Hct 36.2 L (39.0-53.0) % MCHC 30.5 L (31.0-37.0) g/dL Lymphocytes # 0.8 L (1.0-4.8) k/uL Sodium 136 L (137-145) mmol/L BUN 47 H (9-20) mg/dL Creatinine 4.31 H (0.66-1.25) mg/dL Glucose 133 H (74-99) mg/dL POC Glucose (mg/dL) 115 H (75-99) mg/dL Calcium 6.2 L* (8.4-10.2) mg/dL Creatine Kinase 86401 H* (55-170) U/L Procalcitonin (0.02-0.09) ng/mL 03/24/21 Range/Units 11:30 RBC (4.30-5.90) m/uL Hgb (13.0-17.5) gm/dL Hct (39.0-53.0) % MCHC (31.0-37.0) g/dL Lymphocytes # (1.0-4.8) k/uL Sodium (137-145) mmol/L BUN (9-20) mg/dL Creatinine (0.66-1.25) mg/dL Glucose (74-99) mg/dL POC Glucose (mg/dL) 180 H (75-99) mg/dL Calcium (8.4-10.2) mg/dL Creatine Kinase (55-170) U/L Procalcitonin (0.02-0.09) ng/mL Microbiology - Last 24 Hours (Table) 03/23/21 04:45 Blood Culture - Preliminary Blood No Growth after 24 hours 03/21/21 18:34 Blood Culture - Preliminary Blood No Growth after 48 hours 03/21/21 18:34 Blood Culture - Preliminary Blood No Growth after 48 hours 03/22/21 03:36 Urine Culture - Preliminary Urine,Voided Gram Neg Bacilli Assessment and Plan Assessment: right upper extremity cyanotic changes, ischemia due to compression Right arm compartment syndromepost fasciotomy Hyperkalemia, improved Rhabdomyolysis, improving Renal dysfunction, slightly worsened Plan: Continue to monitor for recommendations of renal replacement therapy and possible dialysis catheter. No further vascular for the upper extremity this time. We'll plan to sign off at this time please renotify if patient is in need of dialysis access.
--- NOTE | 2021-03-24 13:03 | P.PN ---
Subjective Progress Note Date: 03/24/21 Principal diagnosis: Acute compartment syndrome of right forearm status post fasciotomy, and acute rhabdomyolysis. This is a 70-year-old white male with history of Parkinson's disease, diabetes and diabetic neuropathy, hypothyroidism, chronic back pain, patient apparently fell, and he was found pinned in between his bed and the nightstand. Patient apparently was rolling in bed when he fell and he got stuck. And apparently he was stuck for 2 days has not taken any of his medication. He was unable to reach anyone. Neighbors came in to check on him, and he was noted to be stuck in between the bed and the nightstand, unable to move, patient was released by the neighbor, and brought into the hospital. Upon arrival to the hospital, patient was found to have a thickened swelling bruising ecchymosis of the right forearm and right hand. Seen by orthopedics on consultation, and he was diagnosed as having acute compartment syndrome involving the forearm and right hand. Patient underwent fasciotomy of the right arm shortly after he was seen in the emergency room, and this was done on 03/21/2021. The surgery was done by Dr. Paez, apparently patient had right forearm fasciotomies of 3 compartments volar, dorsal, and mobile wad. He should also had application of wound VAC with negative pressure and wound dressing to forearm fasciotomy wounds. Patient was seen by internal medicine on consultation, and today he was noted to have hyperkalemia, hypotension, worsening renal failure, acute kidney injury, worsening CPK, and clearly the patient is developing a picture of acute rhabdomyolysis and acute renal failure. Hence arrangements were made to transfer the patient to the ICU. And nephrology was consulted. I was notified about this patient shortly after he arrived to the ICU, he had no adequate venous access, apparently multiple nurses attempted to establish a peripheral IV access and the patient, and attempts were unsuccessful. Then I came in and eval uated the patient. I was able to establish a right femoral triple-lumen catheter, and a left brachial arterial line. And I recommended more fluids to be given, recommended more bicarb to be given, I also recommended close monitoring of his urine output, as well as his electrolytes, and recommended an ABG which is pending during my evaluation. Patient was noted to have WBC count of 12, hemoglobin of 15.8, potassium was 6.5, and his potassium was 5.1 yesterday. Bicarb came down from 21-10 over the last 24 hours, BUN up from 18- 31, creatinine up from 1.39-2.65 today, CPK went up from 45,000-60,000 today. Clearly the patient is developing a picture of acute rhabdomyolysis, and acute kidney injury. Nephrology is already on the case today, and recommended sodium bicarb drip, more fluids, and the patient is on antibiotics in the form of cefazolin. Reevaluated today on 03/23/21, patient remains in the ICU, I saw this patient last night on consultation. Patient is resting in bed, he is mostly on 4 L nasal cannula. Hemodynamically stable, not requiring any pressors. CPK is down to 50,000. Alkaline phosphatase is a 67, C-reactive protein is 16.8. ABG last night showed a pO2 of 92 pCO2 of 38 pH of 7.42. Patient is now off bicarb. Remains on IV fluid in the form of 0.9 normal saline at 150 mL per hour. His urine output seems to be picking up nicely, renal functioning is a bit worse today. But I expect that will improve with more fluids and decent urine output. Patient was seen by nephrology on consultation, no plans for hemodialysis at least at this point yet. Pulmonary-tony the patient denies any shortness of breath, he is on 4 L nasal cannula with O2 saturation in the high 90s. His chest x-ray showed mostly minimal atelectasis especially at the bases. Hence patient was advised to do more work of breathing and deep cough, and more incentive spirometer. Reevaluated today on 03/24/21, patient remains in the ICU, went back to surgery yesterday, and he had a wound VAC change. Patient is hemodynamically stable, not in any distress, on 2 L nasal cannula with O2 sat from 98%. Patient is not requiring any pressors, blood pressure is 133/94. Temp is 98. WBC count is 6.4 hemoglobin is 11.1. Electrolytes are normal however his BUN is 47 creatinine 4.31. CPK is down to 39,000. Renal functioning is a bit worse, being closely followed by nephrology, he is making marginal urine output anywhere between 20- 30 mL/h, no need for hemodialysis at this point. Objective - Vital Signs Vital signs: Vital Signs Temp 98 F 03/24/21 12:00 Pulse 70 03/24/21 12:00 Resp 12 03/24/21 12:00 BP 133/94 03/24/21 12:00 Pulse Ox 98 03/24/21 12:00 Intake & Output 03/23/21 03/24/21 03/24/21 18:59 06:59 18:59 Intake Total 4100 1800 1200 Output Total 780 950 190 Balance 3320 850 1010 Weight 123.3 kg Intake: IV 2100 1800 150 Dextrose 5% in Water 1, 1500 1800 150 000 ml @ 150 mls/hr IV . Q7H40M ANABEL with Sodium Bicarb (1 Meq/ml) 150 ml Rx#:[id number] Intake, IV Titration 2000 750 Amount Sodium Chloride 0.9% 1, 750 000 ml @ 150 mls/hr IV . Q6H40M ANABEL Rx#:[id number] Sodium Chloride 0.9% 1, 2000 000 ml @ 999 mls/hr IV . Q1H1M ONE Rx#:[id number] Oral 300 Output: Drainage 500 500 Right Arm 500 500 Urine 270 450 190 Estimated Blood Loss 10 Other: Voiding Method Indwelling Catheter Indwelling Catheter Indwelling Catheter ABP, PAP, CO, CI - Last Documented Arterial Blood Pressure 120/63 - Exam Physical Exam: Revealed a 70-year-old white male on 2 L nasal cannula, in no distress. Head: Atraumatic, normocephalic. HEENT:[Neck is supple.] [No neck masses.] [No thyromegaly.] [No JVD.] Chest: [Symmetrical chest expansion, diminished breath sounds at the bases. Cardiac Exam: [Distant S1 and S2, no S3 gallop. No murmur. Abdomen: [Soft, nontender, no megaly, no rebound, no guarding, normal bowel sounds.] Extremities: Right upper extremity swelling is noted. Right forearm is status post fasciotomy in 3 different compartments, and wound VAC is noted with serosanguineous material oxygen into the wound VAC.. Wound VAC was changed yesterday. No sensation of right forearm and hand. And patient cannot move right arm. Neurological Exam: Alert and oriented 3, no gross focal neurologic deficits. Psychiatric: Normal mood, affect and normal mental status examination. Musculoskeletal: As noted above with issues related to right forearm and right hand. - Labs CBC & Chem 7: 03/24/21 04:40 03/24/21 04:40 Labs: Abnormal Lab Results - Last 24 Hours (Table) 03/23/21 03/23/21 03/24/21 Range/Units 04:45 20:14 04:40 RBC (4.30-5.90) m/uL Hgb (13.0-17.5) gm/dL Hct (39.0-53.0) % MCHC (31.0-37.0) g/dL Lymphocytes # (1.0-4.8) k/uL Sodium 136 L (137-145) mmol/L BUN 47 H (9-20) mg/dL Creatinine 4.31 H (0.66-1.25) mg/dL Glucose 133 H (74-99) mg/dL POC Glucose (mg/dL) 143 H (75-99) mg/dL Calcium 6.2 L* (8.4-10.2) mg/dL Creatine Kinase 53709 H* (55-170) U/L Procalcitonin 2.67 H (0.02-0.09) ng/mL 03/24/21 03/24/21 03/24/21 Range/Units 04:40 06:44 11:30 RBC 3.94 L (4.30-5.90) m/uL Hgb 11.1 L (13.0-17.5) gm/dL Hct 36.2 L (39.0-53.0) % MCHC 30.5 L (31.0-37.0) g/dL Lymphocytes # 0.8 L (1.0-4.8) k/uL Sodium (137-145) mmol/L BUN (9-20) mg/dL Creatinine (0.66-1.25) mg/dL Glucose (74-99) mg/dL POC Glucose (mg/dL) 115 H 180 H (75-99) mg/dL Calcium (8.4-10.2) mg/dL Creatine Kinase (55-170) U/L Procalcitonin (0.02-0.09) ng/mL Microbiology - Last 24 Hours (Table) 03/23/21 04:45 Blood Culture - Preliminary Blood No Growth after 24 hours 03/21/21 18:34 Blood Culture - Preliminary Blood No Growth after 48 hours 03/21/21 18:34 Blood Culture - Preliminary Blood No Growth after 48 hours 03/22/21 03:36 Urine Culture - Preliminary Urine,Voided Gram Neg Bacilli Assessment and Plan Assessment: Impression: Acute rhabdomyolysis secondary to forearm injury and compartment syndrome, status post fasciotomy. Postoperative day #3, status post a wound VAC change postoperative day #1 Acute kidney injury secondary to rhabdomyolysis. Secondary to above. Acute lactic acidosis secondary to poor tissue perfusion of the right upper extremity and acute kidney injury. Acute hyperkalemia secondary to worsening metabolic acidosis, and worsening renal failure. Resolved. History of type 2 diabetes. History of Parkinson's disease. History of chronic and recurrent urinary tract infections History of diabetic neuropathy History of Guillain-Hoffman syndrome in 2007. Recommendation: Continue present supportive care measures. Continue IV fluids at 150 mL per hour. Continue antibiotics. Continue GI prophylaxis and DVT prophylaxis. Continue to monitor closely his electrolytes, renal profile, and CPK. His CPKs seems to be trending down nicely. Today is 39,000. Prognosis is relatively guarded. We will continue to follow in the ICU. Time with Patient: Less than 30
--- NOTE | 2021-03-24 13:32 | P.PN ---
Subjective Progress Note Date: 03/24/21 Follow-up for acute kidney injury and hyperkalemia. Urine output of 1.7 L in the last 24 hours. Objective - Vital Signs Vital signs: Vital Signs Temp 98 F 03/24/21 12:00 Pulse 76 03/24/21 13:00 Resp 13 03/24/21 13:00 BP 123/94 03/24/21 13:00 Pulse Ox 97 03/24/21 13:00 Intake & Output 03/23/21 03/24/21 03/24/21 18:59 06:59 18:59 Intake Total 4100 1800 1200 Output Total 780 950 190 Balance 3320 850 1010 Weight 123.3 kg Intake: IV 2100 1800 150 Dextrose 5% in Water 1, 1500 1800 150 000 ml @ 150 mls/hr IV . Q7H40M ANABEL with Sodium Bicarb (1 Meq/ml) 150 ml Rx#:[id number] Intake, IV Titration 2000 750 Amount Sodium Chloride 0.9% 1, 750 000 ml @ 150 mls/hr IV . Q6H40M ANABEL Rx#:[id number] Sodium Chloride 0.9% 1, 2000 000 ml @ 999 mls/hr IV . Q1H1M ONE Rx#:[id number] Oral 300 Output: Drainage 500 500 Right Arm 500 500 Urine 270 450 190 Estimated Blood Loss 10 Other: Voiding Method Indwelling Catheter Indwelling Catheter Indwelling Catheter ABP, PAP, CO, CI - Last Documented Arterial Blood Pressure 118/61 - Exam COVID-19 isolation - Labs CBC & Chem 7: 03/24/21 04:40 03/24/21 04:40 Labs: Abnormal Lab Results - Last 24 Hours (Table) 03/23/21 03/23/21 03/24/21 Range/Units 04:45 20:14 04:40 RBC (4.30-5.90) m/uL Hgb (13.0-17.5) gm/dL Hct (39.0-53.0) % MCHC (31.0-37.0) g/dL Lymphocytes # (1.0-4.8) k/uL Sodium 136 L (137-145) mmol/L BUN 47 H (9-20) mg/dL Creatinine 4.31 H (0.66-1.25) mg/dL Glucose 133 H (74-99) mg/dL POC Glucose (mg/dL) 143 H (75-99) mg/dL Calcium 6.2 L* (8.4-10.2) mg/dL Creatine Kinase 40514 H* (55-170) U/L Procalcitonin 2.67 H (0.02-0.09) ng/mL 03/24/21 03/24/21 03/24/21 Range/Units 04:40 06:44 11:30 RBC 3.94 L (4.30-5.90) m/uL Hgb 11.1 L (13.0-17.5) gm/dL Hct 36.2 L (39.0-53.0) % MCHC 30.5 L (31.0-37.0) g/dL Lymphocytes # 0.8 L (1.0-4.8) k/uL Sodium (137-145) mmol/L BUN (9-20) mg/dL Creatinine (0.66-1.25) mg/dL Glucose (74-99) mg/dL POC Glucose (mg/dL) 115 H 180 H (75-99) mg/dL Calcium (8.4-10.2) mg/dL Creatine Kinase (55-170) U/L Procalcitonin (0.02-0.09) ng/mL Microbiology - Last 24 Hours (Table) 03/23/21 04:45 Blood Culture - Preliminary Blood No Growth after 24 hours 03/21/21 18:34 Blood Culture - Preliminary Blood No Growth after 48 hours 03/21/21 18:34 Blood Culture - Preliminary Blood No Growth after 48 hours 03/22/21 03:36 Urine Culture - Preliminary Urine,Voided Gram Neg Bacilli Assessment and Plan Assessment: #1 nonoliguric acute kidney injury secondary to toxic ATN from rhabdomyolysis/CT with contrast. -Baseline creatinine 1.0 MG per DL #2 traumatic rhabdomyolysis with crush injury #3 compartment syndrome of the right arm #4 metabolic acidosis, improved #5 hypocalcemia suspect from hyperphosphatemia from rhabdomyolysis #6 Covid 19 Plan: #1 continue with bicarb drip at 150 ML's an hour. #2 check ionized calcium and phosphorous level. #3 if renal function continues to worsen, CK level still high and oliguric may need dialysis. Currently monitor off dialysis. #4 avoid nephrotoxic agents and hypotensive episodes.
[2021-03-24] MEDS ORDERED: CALCIUM GLUCONATE 1 GM in SODIUM CHLORIDE 0.9% 100 ML IVPB ONE (14:03)
[2021-03-24] MEDS: BENZOCAINE/MENTHOL LOZENG 1 EACH LOZENGE MUCOUS MEM PRN ×2 (16:05→21:05)
--- NOTE | 2021-03-24 16:28 | P.PN ---
Subjective Progress Note Date: 03/24/21 70 years old male patient of Dr. Pennington with past medical history of Parkinson's, diabetes with diabetic neuropathy, hypothyroidism, calendar in 2007, chronic back pain with lumbar surgery 25 years ago comes in after he was found pinned in between his bed and the nightstand. Patient stated that he was rolling in his bed when he got stuck. According to the daughter bedside it appears patient has been stuck there for 2 days since he has not taken his medication. Patient was unable to reach anybody. Since nobody heard anything from the patient family called neighbors and friends to check on him. Patient was alert and was found suspended and there in between his bed and nightstand and unable to move himself from this position. Patient was released from his position and brought to the hospital. He is unable to move his right upper extremity with significant bruising and ecchymosis involving the forearm and the hand. Patient has no mobility involving his right arm , with contracture involving his hand.. Patient denies dizziness, confusion or recent falls. He states he was doing well and had no fever, chills, polyuria increased frequency or concern for sepsis. He did see a urologist at [facility] for his recurrent UTIs in January and was found to have a urine infection. Patient was admitted in in October for recurrent falls and UTI sepsis with E. coli resistant to fluoroquinolones. Patient is fairly active at baseline and goes to gym 4 times a week. Patient had a detailed workup including MRI, EEG and echocardiogram on his admission in October, echocardiogram suggest moderate concentric left ventricle hypertrophy with EF 55-60% on the valves with mild mitral and tricuspid regurgitation. Right ventricle pressures were less than 35mm. Vitals reviewed patient is afebrile pulse 63 respiratory rate 16 blood pressure 147/99 oxybutynin 95% on room air. Labs reviewed WBC 13.9 hemoglobin 17.4 sodium 136 potassium 6.1 bicarbonate 19 creatinine 1.35 and blood sugar 242 lactic acid 7.1 AST 660 ALT 259 with CK levels [id number] troponin [address] head and cervical spine showed right ICA hyperdense and recommended CT angiography to: For list exclude internal thrombosis no acute intracranial hemorrhage or mass effect degenerative and nonspecific white matter changes most typical remote ischemia slightly gait greater central competent of ventricle dilation can be associated with normal pressure hydrocephalus severe multilevel degenerative disc disease no fracture X-rays humerus was negative for fracture or dislocation. X-ray forearm suggestive no acute fracture diffuse soft tissue edema suggestive of posttraumatic or postinfectious edema shoulder x-ray on the right shows hairline fracture nondisplaced distal right clavicle with soft tissue edema. Chest x-ray with right lower lobe A to lactose is only infiltrated nodular density right lung may be related to superimposed structure short-term follow-up with repeat chest x-ray recommended. EKG suggested normal sinus rhythm with T-wave abnormality noted x-ray hand no fracture or dislocation but patient's patient's were flexed extensive soft tissue swelling noted 03/22: She and has been hypotensive and ordered for 2 more liters of IV fluid bolus. Blood culture and urine culture in progress. Patient has been afebrile, temperature actually on the lower side 96.7-97.5. Heart rate 78, blood pressure 110/71 after fluids, pulse ox 93% on 4 L nasal cannula. Repeat blood work reveals WBC 12.0. Sodium 133, potassium 6.5, chloride 112, CO2 10, BUN 31 and creatinine 2.65. Blood sugars running between 207 and 221. Repeat lactic acid 2.7. CK 60,158. AST 1424, ALT 87. Kayexalate 30 g, calcium gluconate 1 g with 10 units of regular insulin and D50 50 ML's all ordered. Consult added for nephrology. Orthopedics is planning on returning to or tomorrow to remove wound VAC and assess wounds and possible new wound VAC placement, possible closure partial closure of the wounds. Patient also followed by neurology and infectious disease. Patient is currently on 2 g every 12 hours 03/23: Due to worsening renal function and worsening rhabdomyolysis as well as hypotension yesterday, patient was moved into the intensive care unit. His uri ne output has been 20-30 ML's. He has been continued on IV fluids currently at 150 mL per hour. We will add in fluid bolus of 2 L. Patient has been seen by nephrology and was started on bicarb drip yesterday now discontinued. Continue to assess daily for need for renal replacement therapy. Vascular surgery is following for possible dialysis catheter. No further vascular intervention for the upper extremity at this time. Neurology has no further plans will recommend follow-up with his neurologist and will sign off the case for now. Renal ultrasound revealed suboptimal study without hydronephrosis bilaterally. 03/24 patient examined at bedside. He has no improvement in sensation involving her right upper extremity. He did have an episode last night when he woke up in Panic as patient thought he lost hus arm. He is otherwise alert and answer questions appropriately. Vitals stable hemoglobin stable, calcium is 6.2 creatinine kinase is 39,000 181. IV fluids are running at 1 50 mL per hour urine output approximately 30 ML per hour. 1 L bolus given to the patient 1 calcium 1 g calcium gluconate ordered. Tums Ultra 45 and repeat treatment 3 times a day. Discussed with patient the possible need to be on PTSD reluctant to start at this point medication. Patient is ROS Constitutional: Denies chills, Denies fever, Denies lethargy, Denies malaise, Denies poor appetite, Denies weakness, Denies weight loss Eyes: denies decreased vision, denies diplopia, denies discharge, denies pain Ears: deny: decreased hearing Ears, nose, mouth and throat: Denies dental pain, Denies headache, Denies nasal discharge, Denies nose pain Cardiovascular: Denies chest pain, Denies decreased exercise tolerance, Denies edema, Denies high blood pressure, Denies irregular heart beat, Denies palpitations, Denies paroxysmal nocturnal dyspnea, Denies rapid heart beat, Denies shortness of breath Respiratory: Denies congestion, Denies cough, Denies cough with sputum, Denies dyspnea, Denies home oxygen, Denies wheezing Gastrointestinal: Denies abdominal pain, Denies change in bowel habits, Denies coffee ground emesis, Denies heartburn, Denies hematemesis, Denies hematochezia, Denies loss of appetite, Denies nausea, Denies vomiting Genitourinary: Denies dysuria, Denies flank pain, Denies kidney stones, Denies menorrhagia, Denies urgency, Denies urinary frequency Musculoskeletal: Denies gait dysfunction, Denies limitation of motion, Denies morning stiffness, Denies muscle cramps endorses contracture, swelling involving right upper extremity Integumentary: Denies rash, Denies wounds, Denies brittle nails, Denies change in hair/nails, Denies darkening of skin Neurological: Denies balance difficulties, no change in speech, Denies double vision, Denies gait dysfunction, Denies loss of vision, Denies motor disturbance, Denies numbness, Denies paralysis, induces tingling involving the dorsal aspect of foot Denies seizures Psychiatric: Denies anxiety, Denies depression mild PTSD Endocrine: Denies excessive sweating, Denies excessive thirst, Denies high blood sugars, Denies palpitations Hematologic/Lymphatic: Denies easy bruising, Denies lymphadenopathy Physical exam - Constitutional General appearance: Alert and oriented 3 cooperative, no acute distress, obese - EENT Eyes: anicteric sclerae, PERRLA, normal appearance ENT: hearing grossly normal - Neck Neck: no lymphadenopathy, normal ROM, no other, no rigidity, no stridor, no thyromegaly - Respiratory Respiratory: bilateral: CTA, negative: diminished, dullness, rales, rhonchi - Cardiovascular Rhythm: regular Heart sounds: normal: S1, S2 Abnormal Heart Sounds: no systolic murmur, no diastolic murmur, no rub, no S3 Gallop, no S4 Gallop, no click, no other - Gastrointestinal General gastrointestinal: normal bowel sounds, soft nontender - Integumentary Integumentary: Significant bruising and ecchymosis involving right upper extremity involving the hand, forearm and arm with significant swelling. Patient has no movement of the right arm. - Neurologic Neurologic: 0/5 on flexion/extension /internal rotation and external rotation involving right upper extremity, lack of sensation involving the right forearm. Sensation intact in the upper arm. tingling and numbness involving the dorsal aspect of both feet - Musculoskeletal Musculoskeletal: gait not assessed, , right upper extremity with no active movement, hand in flexion with diffuse swelling involving the digits, wrist, forearm and upper arm and axilla. Nontender to touch peripheral pulses are diminished involving the right upper extremity. No mobility involving shoulder, elbow or wrist or fingers. Lack of sensation involving the right upper extremity. Passive shoulder movement present with no significant pain. No significant pain involving forearm or hand. capillary refill close to 2 seconds. Peripheral pulses are diminished compared to the other extremity. - Psychiatric Psychiatric: A&O x's 3, appropriate affect Assessment and plan Right forearm compartment syndrome -Status post dorsal and volar fasciotomies with Dr. Paez, 03/21. Vascular surgery Dr. Gerardo is not planning any further intervention. Patient is to return to the or today possibly. -Patient is cleared for surgery but carries a risk of 2.4% for any acute cardiac event involving cardiac nonfatal AZ or nonfatal cardiac arrest. His surgery is eminent to save his limb. Patient echocardiogram from October 2020 denies any history of previous AZ with ejection fraction of 55-60%. - Repeat surgical intervention on 03/23 I&D done patient on wound back Acute rhabdomyolysis secondary to injury -Status post 2 L IV fluids. Continue IV fluids at 150 mL per hour -Repeat CK tomorrow -Status post bicarb drip -Fluid bolus of 2 L ordered for today. Hypo-calcemia -Status post calcium gluconate calcium carbonate 500 3 times a day - Distal nondisplaced right clavicle fracture Acute COVID19 infection - Continue isolation Acute metabolic encephalopathy secondary to sepsis and acute kidney injury, rhabdomyolysis, Dilaudid Consult with neurology appreciated Stroke is not suspected Vitamin B12 1000 g daily added by neurology Hyperkalemia secondary to Rhabdomyolysis - Repeat calcium gluconate 1 g, 10 units of regular insulin and 50 ML's of D50. - Consult nephrology - EKG suggestive of T-wave changes Acute lactic acidosis secondary to hypovolemia - Repeat lactic acid - Status post 2 L IV fluids - Continue IV fluids at 1 30 mL/h. Patient may need further boluses Acute kidney injury secondary to rhabdomyolysis secondary to ATN - Continue IV fluids with normal saline at 130 mL per hour - Baseline creatinine 0.8 -Avoid nephrotoxic agent -Hold metformin -Consult nephrology appreciated Acute transaminitis - Liver enzymes have worsened since last admission -Continue perfusion with IV fluids Type II uncontrolled diabetes - Last A1c 7.2 - Hold metformin - Continue insulin sliding Scale and Lantus at 5 units at at bedtime History of UTI - Would recommend urinalysis as patient was septic in October 2020 and is currently undergoing treatment with urologist according to the daughter bedside. History of Sepsis secondary to acute urinary tract infection In October 2020 - Unclear if patient fall was a result of confusion. Infectious metabolic encephalopathy - resolved - CT head and neck suggestive of hyperdense involving right carotid. We will evaluate with CT angiogram head and neck.. Also mentioned normal pressure hydrocephalus on the CAT scan though MRI was negative for hydrocephalus in October Frequent falls possibly related to worsening Parkinson's, exacerbated by sepsis. - Does PT as outpatient. We'll evaluate for rehab once patient is stableDiabetic polyneuropathy. Lyrica 225 mg twice daily Parkinson's. -Continue Sinemet 251 101-1/2 3 times daily. Hypothyroidism. -Continue levothyroxine 150 Scott grams daily. Guillain-Trenton syndrome in 2007. Benign prostatic hypertrophy. -Continue Flomax or 0.4 mg daily. GI prophylaxis. Protonix. DVT prophylaxis. Heparin subcu. DISCHARGE PLAN Home, to be determined. PT and OT consults. Objective - Vital Signs Vital signs: Vital Signs Temp 98 F 03/24/21 12:00 Pulse 78 03/24/21 15:00 Resp 13 03/24/21 15:00 BP 123/94 03/24/21 15:00 Pulse Ox 98 03/24/21 15:00 Intake & Output 03/23/21 03/24/21 03/24/21 18:59 06:59 18:59 Intake Total 4100 1800 1500 Output Total 780 950 260 Balance 3320 850 1240 Weight 123.3 kg Intake: IV 2100 1800 150 Dextrose 5% in Water 1, 1500 1800 150 000 ml @ 150 mls/hr IV . Q7H40M ANABEL with Sodium Bicarb (1 Meq/ml) 150 ml Rx#:[id number] Intake, IV Titration 2000 1050 Amount Sodium Chloride 0.9% 1, 1050 000 ml @ 150 mls/hr IV . Q6H40M ANABEL Rx#:[id number] Sodium Chloride 0.9% 1, 2000 000 ml @ 999 mls/hr IV . Q1H1M ONE Rx#:[id number] Oral 300 Output: Drainage 500 500 Right Arm 500 500 Urine 270 450 260 Estimated Blood Loss 10 Other: Voiding Method Indwelling Catheter Indwelling Catheter Indwelling Catheter ABP, PAP, CO, CI - Last Documented Arterial Blood Pressure 125/63 - Labs CBC & Chem 7: 03/24/21 04:40 03/24/21 04:40 Labs: Abnormal Lab Results - Last 24 Hours (Table) 03/23/21 03/24/21 03/24/21 Range/Units 20:14 04:40 04:40 RBC 3.94 L (4.30-5.90) m/uL Hgb 11.1 L (13.0-17.5) gm/dL Hct 36.2 L (39.0-53.0) % MCHC 30.5 L (31.0-37.0) g/dL Lymphocytes # 0.8 L (1.0-4.8) k/uL Sodium 136 L (137-145) mmol/L BUN 47 H (9-20) mg/dL Creatinine 4.31 H (0.66-1.25) mg/dL Glucose 133 H (74-99) mg/dL POC Glucose (mg/dL) 143 H (75-99) mg/dL Calcium 6.2 L* (8.4-10.2) mg/dL Creatine Kinase 79281 H* (55-170) U/L 03/24/21 03/24/21 Range/Units 06:44 11:30 RBC (4.30-5.90) m/uL Hgb (13.0-17.5) gm/dL Hct (39.0-53.0) % MCHC (31.0-37.0) g/dL Lymphocytes # (1.0-4.8) k/uL Sodium (137-145) mmol/L BUN (9-20) mg/dL Creatinine (0.66-1.25) mg/dL Glucose (74-99) mg/dL POC Glucose (mg/dL) 115 H 180 H (75-99) mg/dL Calcium (8.4-10.2) mg/dL Creatine Kinase (55-170) U/L Microbiology - Last 24 Hours (Table) 03/22/21 03:36 Urine Culture - Final Urine,Voided Escherichia coli Escherichia coli#2 03/23/21 04:45 Blood Culture - Preliminary Blood No Growth after 24 hours 03/21/21 18:34 Blood Culture - Preliminary Blood No Growth after 48 hours 03/21/21 18:34 Blood Culture - Preliminary Blood No Growth after 48 hours
[2021-03-24] MEDS: HYDROmorphone 0.5 MG/0.5 ML SYRINGE IVP PRN (16:42)
[2021-03-24 16:46] LABS: Glucose,Whole Blood 155 mg/dL (75-99)
[2021-03-24] MEDS ORDERED: ALPRAZolam 0.25 MG TAB PO PRN (18:31)
[2021-03-24 20:22] LABS: Glucose,Whole Blood 139 mg/dL (75-99)
[2021-03-24] MEDS: CALCIUM CARBONATE 500 MG CHEWABLE PO SCH (21:05)
[2021-03-24] MEDS: INSULIN DETEMIR (LEVEMIR) 100 UNIT/ML SYR SQ SCH (21:05)
--- NOTE | 2021-03-24 21:32 | P.PN ---
Subjective Progress Note Date: 03/24/21 Principal diagnosis: Right forearm compartment syndrome , covid 19 infection Patient is a 70-year-old male who was brought into the hospital after the patient was started between bed and nightstand for 2 days noticed to have compartment syndrome right forearm status post fasciotomy 3, patient was transferred to the ICU last night because of worsening hypotension. Patient was taken back to the OR 03/23/2021 and is status post debridement of devitalized tissue and reapplication of the wound VAC On today's evaluation, and that is 03/24/2021 the patient remains to be afebrile, the patient denies any worsening pain the right forearm. patient denies having any chest pain shortness of breath minimal cough , the patient denies nausea no vomiting no abdominal pain and no diarrhea Objective - Vital Signs Vital signs: Vital Signs Temp 98.2 F 03/24/21 16:00 Pulse 79 03/24/21 19:00 Resp 20 03/24/21 19:00 BP 153/94 03/24/21 16:00 Pulse Ox 97 03/24/21 19:00 Intake & Output 03/24/21 03/24/21 03/25/21 06:59 18:59 06:59 Intake Total 1800 3400 150 Output Total 950 805 130 Balance 850 2595 20 Weight 123.3 kg Intake: IV 1800 150 Dextrose 5% in Water 1, 1800 150 000 ml @ 150 mls/hr IV . Q7H40M ANABEL with Sodium Bicarb (1 Meq/ml) 150 ml Rx#:[id number] Intake, IV Titration 2650 150 Amount IV Fluid Continuation 800 1000 ml @ 0 mls/hr IV .STK- MED ONE Rx#:[id number] Sodium Chloride 0.9% 1, 1650 150 000 ml @ 150 mls/hr IV . Q6H40M ANABEL Rx#:[id number] Oral 600 Output: Drainage 500 400 100 Right Arm 500 400 100 Urine 450 405 30 Other: Voiding Method Indwelling Catheter Indwelling Catheter ABP, PAP, CO, CI - Last Documented Arterial Blood Pressure 109/58 - Exam GENERAL DESCRIPTION:[ Patient is awake and alert in no distress] HEENT: [Oral mucosa is dry and no pharyngeal erythema] EYES : [No pallor or scleral icterus] RESPIRATORY SYSTEM: [Unlabored breathing decreased breath sounds at the base] CARDIA VASCULAR SYSTEM: [S1-S2 regular rate and rhythm no murmur] GI: [Abdominal soft there's no tenderness no organomegaly] EXTREMITIES: [Right forearm currently covered with a wound VAC there's no significant swelling no redness] - Labs CBC & Chem 7: 03/24/21 04:40 03/24/21 04:40 Labs: Abnormal Lab Results - Last 24 Hours (Table) 03/24/21 03/24/21 03/24/21 Range/Units 04:40 04:40 06:44 RBC 3.94 L (4.30-5.90) m/uL Hgb 11.1 L (13.0-17.5) gm/dL Hct 36.2 L (39.0-53.0) % MCHC 30.5 L (31.0-37.0) g/dL Lymphocytes # 0.8 L (1.0-4.8) k/uL Sodium 136 L (137-145) mmol/L BUN 47 H (9-20) mg/dL Creatinine 4.31 H (0.66-1.25) mg/dL Glucose 133 H (74-99) mg/dL POC Glucose (mg/dL) 115 H (75-99) mg/dL Calcium 6.2 L* (8.4-10.2) mg/dL Phosphorus (2.5-4.5) mg/dL Creatine Kinase 89093 H* (55-170) U/L 03/24/21 03/24/21 03/24/21 Range/Units 11:30 16:11 16:43 RBC (4.30-5.90) m/uL Hgb (13.0-17.5) gm/dL Hct (39.0-53.0) % MCHC (31.0-37.0) g/dL Lymphocytes # (1.0-4.8) k/uL Sodium (137-145) mmol/L BUN (9-20) mg/dL Creatinine (0.66-1.25) mg/dL Glucose (74-99) mg/dL POC Glucose (mg/dL) 180 H 155 H (75-99) mg/dL Calcium (8.4-10.2) mg/dL Phosphorus 5.7 H (2.5-4.5) mg/dL Creatine Kinase (55-170) U/L 03/24/21 Range/Units 20:21 RBC (4.30-5.90) m/uL Hgb (13.0-17.5) gm/dL Hct (39.0-53.0) % MCHC (31.0-37.0) g/dL Lymphocytes # (1.0-4.8) k/uL Sodium (137-145) mmol/L BUN (9-20) mg/dL Creatinine (0.66-1.25) mg/dL Glucose (74-99) mg/dL POC Glucose (mg/dL) 139 H (75-99) mg/dL Calcium (8.4-10.2) mg/dL Phosphorus (2.5-4.5) mg/dL Creatine Kinase (55-170) U/L Microbiology - Last 24 Hours (Table) 03/22/21 03:36 Urine Culture - Final Urine,Voided Escherichia coli Escherichia coli#2 03/23/21 04:45 Blood Culture - Preliminary Blood No Growth after 24 hours 03/21/21 18:34 Blood Culture - Preliminary Blood No Growth after 48 hours 03/21/21 18:34 Blood Culture - Preliminary Blood No Growth after 48 hours Assessment and Plan (1) Compartment syndrome of forearm Current Visit: Yes Status: Acute Priority: High Onset Date: ~03/21/21 Code(s): T79.A19A - TRAUMATIC COMPARTMENT SYNDROME OF UNSP UPPER EXTREMITY, INIT SNOMED Code(s): 454420857 (2) COVID-19 Current Visit: Yes Status: Acute Code(s): U07.1 - COVID-19 SNOMED Code(s): 386917476 Plan: Patient with right forearm compartment syndrome traumatic in this patient with status post fasciotomy and wound VAC application 2, patient is afebrile and his white count is normalized, blood culture has been negative so far to continue with this episode and monitor his clinical course closely 2-patient did have a positive covid test, no significant respiratory symptoms continue with current supportive treatment Time with Patient: Less than 30
[2021-03-25 00:41] LABS: Amorphous Sediment,Urine Occasional /hpf; Appearance,Urine Turbid (Clear); Bacteria,Urine Occasional /hpf; Bilirubin,Urine Negative (Negative); Blood,Urine Large (Negative); Color,Urine Light Red; Glucose,Urine (UA) Negative (Negative); Granular Casts,Urine 67 /lpf (0); Hyaline Casts,Urine 8 /lpf (0-2); Ketones,Urine Negative (Negative); Leukocyte Esterase,Urine Large (Negative); Mucus,Urine Occasional /hpf; Nitrite,Urine Negative (Negative); PH, Urine 5.5 (5.0-8.0); Protein,Urine 2+ (Negative); RBC,Urine >182 /hpf (0-5); Specific Gravity,Urine 1.021 (1.001-1.035); Squamous Epithelial Cell,Urine 4 /hpf (0-4); Urobilinogen,Urine <2.0 mg/dL (<2.0); WBC,Urine >182 /hpf (0-5)
[2021-03-25] MEDS: SODIUM CHLORIDE 0.9% 1,000 ML IV SCH ×4 (01:42→21:36)
[2021-03-25] MEDS: LEVOTHYROXINE 75 MCG TAB PO SCH (05:14)
[2021-03-25 06:04] LABS: Basophils % (A) 0 %; Eosinophils # (A) 0.1 k/uL (0-0.7); Eosinophils % (A) 2 %; HCT 33.7 % (39.0-53.0); HGB 10.8 gm/dL (13.0-17.5); Hypochromasia Slight; Lymphocytes # (A) 0.5 k/uL (1.0-4.8); Lymphocytes % (A) 10 %; MCH 30.7 pg (25.0-35.0); MCV 95.8 fL (80.0-100.0); Mean Platelet Volume 8.7; Monocytes # (A) 0.6 k/uL (0-1.0); Monocytes % (A) 13 %; Neutrophils # (A) 3.2 k/uL (1.3-7.7); Neutrophils % (A) 72 %; Platelet Count 114 k/uL (150-450); RBC 3.52 m/uL (4.30-5.90); RDW 14.2 % (11.5-15.5); WBC 4.5 k/uL (3.8-10.6)
[2021-03-25 06:51] LABS: Glucose,Whole Blood 112 mg/dL (75-99)
[2021-03-25] MEDS: INSULIN ASPART (NovoLOG) 100 UNIT/ML VIAL SQ SCH ×4 (07:08→21:37)
[2021-03-25] MEDS: CALCIUM CARBONATE 500 MG CHEWABLE PO SCH ×3 (09:00→21:38)
[2021-03-25] MEDS: CYANOCOBALAMIN 500 MCG TAB PO SCH (09:00)
[2021-03-25] MEDS: TAMSULOSIN 0.4 MG CAP.ER.24H PO SCH (09:00)
[2021-03-25] MEDS: MULTIVITAMINS, THERA 1 EACH TAB PO SCH (09:00)
[2021-03-25] MEDS: PREGABALIN 75 MG CAP PO SCH ×3 (09:01→21:38)
[2021-03-25] MEDS: ASCORBIC ACID 500 MG TAB PO SCH (09:01)
[2021-03-25] MEDS: HEPARIN SODIUM,PORCINE/PF 5,000 UNIT/0.5 ML SYRINGE SQ SCH ×2 (09:01→21:36)
[2021-03-25] MEDS: ZINC SULFATE 220 MG CAP PO SCH (09:01)
[2021-03-25] MEDS: CARBIDOPA-LEVODOPA 25-100 MG 1 EACH TAB PO SCH ×3 (09:01→21:38)
[2021-03-25 09:58] LABS: Calcium 6.6 mg/dL (8.4-10.2); Potassium 3.6 mmol/L (3.5-5.1)
--- NOTE | 2021-03-25 10:10 | P.PN ---
Subjective Progress Note Date: 03/25/21 This patient is a 70-year-old male who is status-post right forearm 3 compartment debridement and irrigation of wounds, and application of wound VAC to forearm fasciotomy wounds on 03/23/[address] Paez. Patient underwent initial fasciotomy of right forearm on 03/21/21 for compartment syndrome. Today's post-operative day #2. The patient is seen and examined bedside in the ICU. Patient continues to have no sensation to his right hand or fingers. Patient states overall he is feeling well today. Pain is well-controlled. He stood up with physical therapy yesterday per nursing. Vital signs stable. Objective - Vital Signs Vital signs: Vital Signs Temp 98 F 03/25/21 08:00 Pulse 69 03/25/21 09:00 Resp 11 L 03/25/21 09:00 BP 106/62 03/25/21 09:00 Pulse Ox 90 L 03/25/21 09:00 Intake & Output 03/24/21 03/25/21 03/25/21 18:59 06:59 18:59 Intake Total 3400 2580 750 Output Total 805 565 615 Balance 2594 2014 135 Weight 124.4 kg Intake: IV 150 1650 450 Dextrose 5% in Water 1, 150 000 ml @ 150 mls/hr IV . Q7H40M A[facility] with Sodium Bicarb (1 Meq/ml) 150 ml Rx#:[id number] Sodium Chloride 0.9% 1, 1650 450 000 ml @ 150 mls/hr IV . Q6H40M ANA[facility]EL Rx#:[id number] Intake, IV Titration 2650 150 Amount IV Fluid Continuation 800 1000 ml @ 0 mls/hr IV .STK- MED ONE Rx#:[id number] Sodium Chloride 0.9% 1, 1650 150 000 ml @ 150 mls/hr IV . Q6H40M ANABEL Rx#:[id number] Oral 600 300 Tube Feeding 780 Output: Drainage 400 100 500 Right Arm 400 100 500 Urine 405 465 115 Other: Voiding Method Indwelling Catheter Indwelling Catheter ABP, PAP, CO, CI - Last Documented Arterial Blood Pressure 114/75 - Exam On examination, the patient is sitting up in bed in no apparent distress. He is alert and oriented 3. On inspection of the right upper extremity, there is diffuse swelling of the extremity, although the compartments do feel soft. There are 2 open wounds of the forearm with a wound VAC in place which appears to be functioning well. The wound VAC does have a good seal at this time. The patient has an easily palpable radial pulse. Capillary refill of all fingers and thumb are less than 2 seconds. Patient has no active motion of the fingers. Per patient, he is no sensation of the right hand or fingers. - Labs CBC & Chem 7: 03/25/21 05:28 03/25/21 09:22 Labs: Abnormal Lab Results - Last 24 Hours (Table) 03/24/21 03/24/21 03/24/21 Range/Units 11:30 16:11 16:43 RBC (4.30-5.90) m/uL Hgb (13.0-17.5) gm/dL Hct (39.0-53.0) % Plt Count (150-450) k/uL Lymphocytes # (1.0-4.8) k/uL Sodium (137-145) mmol/L BUN (9-20) mg/dL Creatinine (0.66-1.25) mg/dL Glucose (74-99) mg/dL POC Glucose (mg/dL) 180 H 155 H (75-99) mg/dL Calcium (8.4-10.2) mg/dL Ionized Calcium Sukhi (4.5-5.3) mg/dL Phosphorus 5.7 H (2.5-4.5) mg/dL C-Reactive Protein (<1.0) mg/dL Urine Protein (Negative) Urine Blood (Negative) Ur Leukocyte Esterase (Negative) Urine RBC (0-5) /hpf Urine WBC (0-5) /hpf Urine WBC Clumps (None) /hpf Amorphous Sediment (None) /hpf Urine Bacteria (None) /hpf Hyaline Casts (0-2) /lpf Urine Mucus (None) /hpf 03/24/21 03/25/21 03/25/21 Range/Units 20:21 00:10 05:28 RBC (4.30-5.90) m/uL Hgb (13.0-17.5) gm/dL Hct (39.0-53.0) % Plt Count (150-450) k/uL Lymphocytes # (1.0-4.8) k/uL Sodium (137-145) mmol/L BUN (9-20) mg/dL Creatinine (0.66-1.25) mg/dL Glucose (74-99) mg/dL POC Glucose (mg/dL) 139 H (75-99) mg/dL Calcium (8.4-10.2) mg/dL Ionized Calcium Sukhi 4.1 L (4.5-5.3) mg/dL Phosphorus (2.5-4.5) mg/dL C-Reactive Protein (<1.0) mg/dL Urine Protein 2+ H (Negative) Urine Blood Large H (Negative) Ur Leukocyte Esterase Large H (Negative) Urine RBC >182 H (0-5) /hpf Urine WBC >182 H (0-5) /hpf Urine WBC Clumps Occasional H (None) /hpf Amorphous Sediment Occasional H (None) /hpf Urine Bacteria Occasional H (None) /hpf Hyaline Casts 8 H (0-2) /lpf Urine Mucus Occasional H (None) /hpf 03/25/21 03/25/21 03/25/21 Range/Units 05:28 05:28 06:49 RBC 3.52 L (4.30-5.90) m/uL Hgb 10.8 L (13.0-17.5) gm/dL Hct 33.7 L (39.0-53.0) % Plt Count 114 L (150-450) k/uL Lymphocytes # 0.5 L (1.0-4.8) k/uL Sodium (137-145) mmol/L BUN (9-20) mg/dL Creatinine (0.66-1.25) mg/dL Glucose (74-99) mg/dL POC Glucose (mg/dL) 112 H (75-99) mg/dL Calcium (8.4-10.2) mg/dL Ionized Calcium Sukhi (4.5-5.3) mg/dL Phosphorus (2.5-4.5) mg/dL C-Reactive Protein 8.4 H (<1.0) mg/dL Urine Protein (Negative) Urine Blood (Negative) Ur Leukocyte Esterase (Negative) Urine RBC (0-5) /hpf Urine WBC (0-5) /hpf Urine WBC Clumps (None) /hpf Amorphous Sediment (None) /hpf Urine Bacteria (None) /hpf Hyaline Casts (0-2) /lpf Urine Mucus (None) /hpf 03/25/21 Range/Units 09:22 RBC (4.30-5.90) m/uL Hgb (13.0-17.5) gm/dL Hct (39.0-53.0) % Plt Count (150-450) k/uL Lymphocytes # (1.0-4.8) k/uL Sodium 135 L (137-145) mmol/L BUN 50 H (9-20) mg/dL Creatinine 4.89 H (0.66-1.25) mg/dL Glucose 113 H (74-99) mg/dL POC Glucose (mg/dL) (75-99) mg/dL Calcium 6.6 L (8.4-10.2) mg/dL Ionized Calcium Sukhi (4.5-5.3) mg/dL Phosphorus (2.5-4.5) mg/dL C-Reactive Protein (<1.0) mg/dL Urine Protein (Negative) Urine Blood (Negative) Ur Leukocyte Esterase (Negative) Urine RBC (0-5) /hpf Urine WBC (0-5) /hpf Urine WBC Clumps (None) /hpf Amorphous Sediment (None) /hpf Urine Bacteria (None) /hpf Hyaline Casts (0-2) /lpf Urine Mucus (None) /hpf Microbiology - Last 24 Hours (Table) 03/23/21 04:45 Blood Culture - Preliminary Blood No Growth after 48 hours 03/21/21 18:34 Blood Culture - Preliminary Blood No Growth after 72 hours 03/21/21 18:34 Blood Culture - Preliminary Blood No Growth after 72 hours 03/22/21 03:36 Urine Culture - Final Urine,Voided Escherichia coli Escherichia coli#2 Assessment and Plan Assessment: Status-post right forearm 3 compartment debridement and irrigation of wounds, and application of wound VAC to forearm fasciotomy wounds on 03/23/[address] Paez. Post-operative day #2. Patient underwent initial fasciotomy of right forearm on 03/21/21 for compartment syndrome. Plan: - Patient was discussed in detail with the nursing staff. Keep wound VAC in place at this time. We are planning for a repeat irrigation and debridement, and wound VAC change in the operating room on 03/26/21. Patient will be made NPO at midnight. - Pain management as needed. - Medical management per multiple medical specialties.
[2021-03-25 11:27] LABS: Glucose,Whole Blood 145 mg/dL (75-99)
--- NOTE | 2021-03-25 13:21 | P.PN ---
Subjective Progress Note Date: 03/25/21 Follow-up for acute kidney injury and hyperkalemia. Urine output of 1.4 L in the last 24 hours. Objective - Vital Signs Vital signs: Vital Signs Temp 98 F 03/25/21 08:00 Pulse 82 03/25/21 13:00 Resp 15 03/25/21 13:00 BP 134/72 03/25/21 13:00 Pulse Ox 92 L 03/25/21 13:00 Intake & Output 03/24/21 03/25/21 03/25/21 18:59 06:59 18:59 Intake Total 3400 2580 1050 Output Total 805 565 695 Balance 259 2015 355 Weight 124.4 kg Intake: IV 150 1650 750 Dextrose 5% in Water 1, 150 000 ml @ 150 mls/hr IV . Q7H40M [facility] with Sodium Bicarb (1 Meq/ml) 150 ml Rx#:[id number] Sodium Chloride 0.9% 1, 1650 750 000 ml @ 150 mls/hr IV . Q6H40M [facility] Rx#:[id number] Intake, IV Titration 2650 150 Amount IV Fluid Continuation 800 1000 ml @ 0 mls/hr IV .STK- MED ONE Rx#:[id number] Sodium Chloride 0.9% 1, 1650 150 000 ml @ 150 mls/hr IV . Q6H40M [facility] Rx#:[id number] Oral 600 300 Tube Feeding 780 Output: Drainage 400 100 500 Right Arm 400 100 500 Urine 405 465 195 Other: Voiding Method Indwelling Catheter Indwelling Catheter Indwelling Catheter ABP, PAP, CO, CI - Last Documented Arterial Blood Pressure 114/75 - Exam COVID-19 isolation, refer to primary team exam - Labs CBC & Chem 7: 03/25/21 05:28 03/25/21 09:22 Labs: Abnormal Lab Results - Last 24 Hours (Table) 03/24/21 03/24/21 03/24/21 Range/Units 16:11 16:43 20:21 RBC (4.30-5.90) m/uL Hgb (13.0-17.5) gm/dL Hct (39.0-53.0) % Plt Count (150-450) k/uL Lymphocytes # (1.0-4.8) k/uL Sodium (137-145) mmol/L BUN (9-20) mg/dL Creatinine (0.66-1.25) mg/dL Glucose (74-99) mg/dL POC Glucose (mg/dL) 155 H 139 H (75-99) mg/dL Calcium (8.4-10.2) mg/dL Ionized Calcium Sukhi (4.5-5.3) mg/dL Phosphorus 5.7 H (2.5-4.5) mg/dL C-Reactive Protein (<1.0) mg/dL Urine Protein (Negative) Urine Blood (Negative) Ur Leukocyte Esterase (Negative) Urine RBC (0-5) /hpf Urine WBC (0-5) /hpf Urine WBC Clumps (None) /hpf Amorphous Sediment (None) /hpf Urine Bacteria (None) /hpf Hyaline Casts (0-2) /lpf Urine Mucus (None) /hpf 03/25/21 03/25/21 03/25/21 Range/Units 00:10 05:28 05:28 RBC 3.52 L (4.30-5.90) m/uL Hgb 10.8 L (13.0-17.5) gm/dL Hct 33.7 L (39.0-53.0) % Plt Count 114 L (150-450) k/uL Lymphocytes # 0.5 L (1.0-4.8) k/uL Sodium (137-145) mmol/L BUN (9-20) mg/dL Creatinine (0.66-1.25) mg/dL Glucose (74-99) mg/dL POC Glucose (mg/dL) (75-99) mg/dL Calcium (8.4-10.2) mg/dL Ionized Calcium Sukhi 4.1 L (4.5-5.3) mg/dL Phosphorus (2.5-4.5) mg/dL C-Reactive Protein (<1.0) mg/dL Urine Protein 2+ H (Negative) Urine Blood Large H (Negative) Ur Leukocyte Esterase Large H (Negative) Urine RBC >182 H (0-5) /hpf Urine WBC >182 H (0-5) /hpf Urine WBC Clumps Occasional H (None) /hpf Amorphous Sediment Occasional H (None) /hpf Urine Bacteria Occasional H (None) /hpf Hyaline Casts 8 H (0-2) /lpf Urine Mucus Occasional H (None) /hpf 03/25/21 03/25/21 03/25/21 Range/Units 05:28 06:49 09:22 RBC (4.30-5.90) m/uL Hgb (13.0-17.5) gm/dL Hct (39.0-53.0) % Plt Count (150-450) k/uL Lymphocytes # (1.0-4.8) k/uL Sodium 135 L (137-145) mmol/L BUN 50 H (9-20) mg/dL Creatinine 4.89 H (0.66-1.25) mg/dL Glucose 113 H (74-99) mg/dL POC Glucose (mg/dL) 112 H (75-99) mg/dL Calcium 6.6 L (8.4-10.2) mg/dL Ionized Calcium Sukhi (4.5-5.3) mg/dL Phosphorus (2.5-4.5) mg/dL C-Reactive Protein 8.4 H (<1.0) mg/dL Urine Protein (Negative) Urine Blood (Negative) Ur Leukocyte Esterase (Negative) Urine RBC (0-5) /hpf Urine WBC (0-5) /hpf Urine WBC Clumps (None) /hpf Amorphous Sediment (None) /hpf Urine Bacteria (None) /hpf Hyaline Casts (0-2) /lpf Urine Mucus (None) /hpf 03/25/21 Range/Units 11:26 RBC (4.30-5.90) m/uL Hgb (13.0-17.5) gm/dL Hct (39.0-53.0) % Plt Count (150-450) k/uL Lymphocytes # (1.0-4.8) k/uL Sodium (137-145) mmol/L BUN (9-20) mg/dL Creatinine (0.66-1.25) mg/dL Glucose (74-99) mg/dL POC Glucose (mg/dL) 145 H (75-99) mg/dL Calcium (8.4-10.2) mg/dL Ionized Calcium Sukhi (4.5-5.3) mg/dL Phosphorus (2.5-4.5) mg/dL C-Reactive Protein (<1.0) mg/dL Urine Protein (Negative) Urine Blood (Negative) Ur Leukocyte Esterase (Negative) Urine RBC (0-5) /hpf Urine WBC (0-5) /hpf Urine WBC Clumps (None) /hpf Amorphous Sediment (None) /hpf Urine Bacteria (None) /hpf Hyaline Casts (0-2) /lpf Urine Mucus (None) /hpf Microbiology - Last 24 Hours (Table) 03/23/21 04:45 Blood Culture - Preliminary Blood No Growth after 48 hours 03/21/21 18:34 Blood Culture - Preliminary Blood No Growth after 72 hours 03/21/21 18:34 Blood Culture - Preliminary Blood No Growth after 72 hours 03/22/21 03:36 Urine Culture - Final Urine,Voided Escherichia coli Escherichia coli#2 Assessment and Plan Assessment: #1 nonoliguric acute kidney injury secondary to toxic ATN from rhabdomyolysis/CT with contrast. -Baseline creatinine 1.0 MG per DL #2 traumatic rhabdomyolysis with crush injury #3 compartment syndrome of the right arm #4 metabolic acidosis, improved #5 hypocalcemia suspect from hyperphosphatemia from rhabdomyolysis #6 Covid 19 Plan: #1 continue with bicarb drip at 150 ML's an hour. #2 if renal function continues to worsen, CK level still high and oliguric may need dialysis. Currently monitor off dialysis. #3 avoid nephrotoxic agents and hypotensive episodes.
--- NOTE | 2021-03-25 13:42 | P.PN ---
Subjective Progress Note Date: 03/25/21 Principal diagnosis: Acute compartment syndrome of right forearm status post fasciotomy, and acute rhabdomyolysis. This is a 70-year-old white male with history of Parkinson's disease, diabetes and diabetic neuropathy, hypothyroidism, chronic back pain, patient apparently fell, and he was found pinned in between his bed and the nightstand. Patient apparently was rolling in bed when he fell and he got stuck. And apparently he was stuck for 2 days has not taken any of his medication. He was unable to reach anyone. Neighbors came in to check on him, and he was noted to be stuck in between the bed and the nightstand, unable to move, patient was released by the neighbor, and brought into the hospital. Upon arrival to the hospital, patient was found to have a thickened swelling bruising ecchymosis of the right forearm and right hand. Seen by orthopedics on consultation, and he was diagnosed as having acute compartment syndrome involving the forearm and right hand. Patient underwent fasciotomy of the right arm shortly after he was seen in the emergency room, and this was done on 03/21/2021. The surgery was done by Dr. Paez, apparently patient had right forearm fasciotomies of 3 compartments volar, dorsal, and mobile wad. He should also had application of wound VAC with negative pressure and wound dressing to forearm fasciotomy wounds. Patient was seen by internal medicine on consultation, and today he was noted to have hyperkalemia, hypotension, worsening renal failure, acute kidney injury, worsening CPK, and clearly the patient is developing a picture of acute rhabdomyolysis and acute renal failure. Hence arrangements were made to transfer the patient to the ICU. And nephrology was consulted. I was notified about this patient shortly after he arrived to the ICU, he had no adequate venous access, apparently multiple nurses attempted to establish a peripheral IV access and the patient, and attempts were unsuccessful. Then I came in and eval uated the patient. I was able to establish a right femoral triple-lumen catheter, and a left brachial arterial line. And I recommended more fluids to be given, recommended more bicarb to be given, I also recommended close monitoring of his urine output, as well as his electrolytes, and recommended an ABG which is pending during my evaluation. Patient was noted to have WBC count of 12, hemoglobin of 15.8, potassium was 6.5, and his potassium was 5.1 yesterday. Bicarb came down from 21-10 over the last 24 hours, BUN up from 18- 31, creatinine up from 1.39-2.65 today, CPK went up from 45,000-60,000 today. Clearly the patient is developing a picture of acute rhabdomyolysis, and acute kidney injury. Nephrology is already on the case today, and recommended sodium bicarb drip, more fluids, and the patient is on antibiotics in the form of cefazolin. Reevaluated today on 03/23/21, patient remains in the ICU, I saw this patient last night on consultation. Patient is resting in bed, he is mostly on 4 L nasal cannula. Hemodynamically stable, not requiring any pressors. CPK is down to 50,000. Alkaline phosphatase is a 67, C-reactive protein is 16.8. ABG last night showed a pO2 of 92 pCO2 of 38 pH of 7.42. Patient is now off bicarb. Remains on IV fluid in the form of 0.9 normal saline at 150 mL per hour. His urine output seems to be picking up nicely, renal functioning is a bit worse today. But I expect that will improve with more fluids and decent urine output. Patient was seen by nephrology on consultation, no plans for hemodialysis at least at this point yet. Pulmonary-tony the patient denies any shortness of breath, he is on 4 L nasal cannula with O2 saturation in the high 90s. His chest x-ray showed mostly minimal atelectasis especially at the bases. Hence patient was advised to do more work of breathing and deep cough, and more incentive spirometer. Reevaluated today on 03/24/21, patient remains in the ICU, went back to surgery yesterday, and he had a wound VAC change. Patient is hemodynamically stable, not in any distress, on 2 L nasal cannula with O2 sat from 98%. Patient is not requiring any pressors, blood pressure is 133/94. Temp is 98. WBC count is 6.4 hemoglobin is 11.1. Electrolytes are normal however his BUN is 47 creatinine 4.31. CPK is down to 39,000. Renal functioning is a bit worse, being closely followed by nephrology, he is making marginal urine output anywhere between 20- 30 mL/h, no need for hemodialysis at this point. Reevaluated today on 03/25/21, patient is doing fairly well, he is relatively asymptomatic, remains on IV fluids, remains on antibiotics. Good urine output,, renal functioning is a bit worse with a BUN of 50 creatinine 4.89. WBC count is 4.5 hemoglobin is 10.8. Patient is on room air with O2 saturation of 92%, he is hemodynamically stable, not requiring any pressors. Patient is scheduled to undergo more surgery on his forearms tomorrow, and may be closure of his fasciotomy. This will be attempted tomorrow. Patient had acute kidney injury and hyperkalemia, his urine output was about 1.4 L in the last 24 hours. Patient seems to have nonoliguric acute kidney injury secondary to acute tubular necrosis from rhabdomyolysis and possibly CT with contrast. Objective - Vital Signs Vital signs: Vital Signs Temp 98 F 03/25/21 08:00 Pulse 82 03/25/21 13:00 Resp 15 03/25/21 13:00 BP 134/72 03/25/21 13:00 Pulse Ox 92 L 03/25/21 13:00 Intake & Output 03/24/21 03/25/21 03/25/21 18:59 06:59 18:59 Intake Total 3400 2580 1050 Output Total 805 565 695 Balance 2592014 355 Weight 124.4 kg Intake: IV 150 1650 750 Dextrose 5% in Water 1, 150 000 ml @ 150 mls/hr IV . Q7H40M [facility] with Sodium Bicarb (1 Meq/ml) 150 ml Rx#:[id number] Sodium Chloride 0.9% 1, 1650 750 000 ml @ 150 mls/hr IV . Q6H40M [facility] Rx#:[id number] Intake, IV Titration 2650 150 Amount IV Fluid Continuation 800 1000 ml @ 0 mls/hr IV .STK- MED ONE Rx#:[id number] Sodium Chloride 0.9% 1, 1650 150 000 ml @ 150 mls/hr IV . Q6H40M [facility] Rx#:[id number] Oral 600 300 Tube Feeding 780 Output: Drainage 400 100 500 Right Arm 400 100 500 Urine 405 465 195 Other: Voiding Method Indwelling Catheter Indwelling Catheter Indwelling Catheter ABP, PAP, CO, CI - Last Documented Arterial Blood Pressure 114/75 - Exam Physical Exam: Revealed a 70-year-old white male on room air, in no distress. Head: Atraumatic, normocephalic. HEENT:[Neck is supple.] [No neck masses.] [No thyromegaly.] [No JVD.] Chest: [Symmetrical chest expansion, diminished breath sounds at the bases. Cardiac Exam: [Distant S1 and S2, no S3 gallop. No murmur. Abdomen: [Soft, nontender, no megaly, no rebound, no guarding, normal bowel sounds.] Extremities: Right upper extremity swelling is noted. Wound VAC is noted. Neurological Exam: Alert and oriented 3, no gross focal neurologic deficits. Psychiatric: Normal mood, affect and normal mental status examination. Musculoskeletal: As noted above with issues related to right forearm and right hand. - Labs CBC & Chem 7: 03/25/21 05:28 03/25/21 09:22 Labs: Abnormal Lab Results - Last 24 Hours (Table) 03/24/21 03/24/21 03/24/21 Range/Units 16:11 16:43 20:21 RBC (4.30-5.90) m/uL Hgb (13.0-17.5) gm/dL Hct (39.0-53.0) % Plt Count (150-450) k/uL Lymphocytes # (1.0-4.8) k/uL Sodium (137-145) mmol/L BUN (9-20) mg/dL Creatinine (0.66-1.25) mg/dL Glucose (74-99) mg/dL POC Glucose (mg/dL) 155 H 139 H (75-99) mg/dL Calcium (8.4-10.2) mg/dL Ionized Calcium Sukhi (4.5-5.3) mg/dL Phosphorus 5.7 H (2.5-4.5) mg/dL C-Reactive Protein (<1.0) mg/dL Urine Protein (Negative) Urine Blood (Negative) Ur Leukocyte Esterase (Negative) Urine RBC (0-5) /hpf Urine WBC (0-5) /hpf Urine WBC Clumps (None) /hpf Amorphous Sediment (None) /hpf Urine Bacteria (None) /hpf Hyaline Casts (0-2) /lpf Urine Mucus (None) /hpf 03/25/21 03/25/21 03/25/21 Range/Units 00:10 05:28 05:28 RBC 3.52 L (4.30-5.90) m/uL Hgb 10.8 L (13.0-17.5) gm/dL Hct 33.7 L (39.0-53.0) % Plt Count 114 L (150-450) k/uL Lymphocytes # 0.5 L (1.0-4.8) k/uL Sodium (137-145) mmol/L BUN (9-20) mg/dL Creatinine (0.66-1.25) mg/dL Glucose (74-99) mg/dL POC Glucose (mg/dL) (75-99) mg/dL Calcium (8.4-10.2) mg/dL Ionized Calcium Sukhi 4.1 L (4.5-5.3) mg/dL Phosphorus (2.5-4.5) mg/dL C-Reactive Protein (<1.0) mg/dL Urine Protein 2+ H (Negative) Urine Blood Large H (Negative) Ur Leukocyte Esterase Large H (Negative) Urine RBC >182 H (0-5) /hpf Urine WBC >182 H (0-5) /hpf Urine WBC Clumps Occasional H (None) /hpf Amorphous Sediment Occasional H (None) /hpf Urine Bacteria Occasional H (None) /hpf Hyaline Casts 8 H (0-2) /lpf Urine Mucus Occasional H (None) /hpf 03/25/21 03/25/21 03/25/21 Range/Units 05:28 06:49 09:22 RBC (4.30-5.90) m/uL Hgb (13.0-17.5) gm/dL Hct (39.0-53.0) % Plt Count (150-450) k/uL Lymphocytes # (1.0-4.8) k/uL Sodium 135 L (137-145) mmol/L BUN 50 H (9-20) mg/dL Creatinine 4.89 H (0.66-1.25) mg/dL Glucose 113 H (74-99) mg/dL POC Glucose (mg/dL) 112 H (75-99) mg/dL Calcium 6.6 L (8.4-10.2) mg/dL Ionized Calcium Sukhi (4.5-5.3) mg/dL Phosphorus (2.5-4.5) mg/dL C-Reactive Protein 8.4 H (<1.0) mg/dL Urine Protein (Negative) Urine Blood (Negative) Ur Leukocyte Esterase (Negative) Urine RBC (0-5) /hpf Urine WBC (0-5) /hpf Urine WBC Clumps (None) /hpf Amorphous Sediment (None) /hpf Urine Bacteria (None) /hpf Hyaline Casts (0-2) /lpf Urine Mucus (None) /hpf 03/25/21 Range/Units 11:26 RBC (4.30-5.90) m/uL Hgb (13.0-17.5) gm/dL Hct (39.0-53.0) % Plt Count (150-450) k/uL Lymphocytes # (1.0-4.8) k/uL Sodium (137-145) mmol/L BUN (9-20) mg/dL Creatinine (0.66-1.25) mg/dL Glucose (74-99) mg/dL POC Glucose (mg/dL) 145 H (75-99) mg/dL Calcium (8.4-10.2) mg/dL Ionized Calcium Sukhi (4.5-5.3) mg/dL Phosphorus (2.5-4.5) mg/dL C-Reactive Protein (<1.0) mg/dL Urine Protein (Negative) Urine Blood (Negative) Ur Leukocyte Esterase (Negative) Urine RBC (0-5) /hpf Urine WBC (0-5) /hpf Urine WBC Clumps (None) /hpf Amorphous Sediment (None) /hpf Urine Bacteria (None) /hpf Hyaline Casts (0-2) /lpf Urine Mucus (None) /hpf Microbiology - Last 24 Hours (Table) 03/23/21 04:45 Blood Culture - Preliminary Blood No Growth after 48 hours 03/21/21 18:34 Blood Culture - Preliminary Blood No Growth after 72 hours 03/21/21 18:34 Blood Culture - Preliminary Blood No Growth after 72 hours 03/22/21 03:36 Urine Culture - Final Urine,Voided Escherichia coli Escherichia coli#2 Assessment and Plan Assessment: Impression: Acute rhabdomyolysis secondary to forearm injury and compartment syndrome, status post fasciotomy. Postoperative day #4, status post a wound VAC change postoperative day #2 Acute kidney injury secondary to rhabdomyolysis. Secondary to above. Acute lactic acidosis secondary to poor tissue perfusion of the right upper extremity and acute kidney injury. Acute hyperkalemia secondary to worsening metabolic acidosis, and worsening renal failure. Resolved. History of type 2 diabetes. History of Parkinson's disease. History of chronic and recurrent urinary tract infections History of diabetic neuropathy History of Guillain-Hoffman syndrome in 2007. Recommendation: Continue present supportive care measures. Continue IV fluids at 150 mL per hour. Continue to monitor urine output and renal profile. Continue antibiotics. Continue GI prophylaxis and DVT prophylaxis. Continue to monitor closely his electrolytes, renal profile, and CPK. CPK today is pending. His C-reactive protein is down to 8.4 from 16.8 on admission Prognosis is relatively guarded. We will continue to follow in the ICU. At least for the next 24 hours. And possibly transfer also has a medical floor if the patient continues to do well after surgery tomorrow. Time with Patient: Less than 30
[2021-03-25] MEDS ORDERED: HYDROmorphone 0.5 MG/0.5 ML SYRINGE IVP STA (15:27)
--- NOTE | 2021-03-25 15:31 | P.PN ---
Subjective Progress Note Date: 03/25/21 70 years old male patient of Dr. Pennington with past medical history of Parkinson's, diabetes with diabetic neuropathy, hypothyroidism, calendar in 2007, chronic back pain with lumbar surgery 25 years ago comes in after he was found pinned in between his bed and the nightstand. Patient stated that he was rolling in his bed when he got stuck. According to the daughter bedside it appears patient has been stuck there for 2 days since he has not taken his medication. Patient was unable to reach anybody. Since nobody heard anything from the patient family called neighbors and friends to check on him. Patient was alert and was found suspended and there in between his bed and nightstand and unable to move himself from this position. Patient was released from his position and brought to the hospital. He is unable to move his right upper extremity with significant bruising and ecchymosis involving the forearm and the hand. Patient has no mobility involving his right arm , with contracture involving his hand.. Patient denies dizziness, confusion or recent falls. He states he was doing well and had no fever, chills, polyuria increased frequency or concern for sepsis. He did see a urologist at [facility] for his recurrent UTIs in January and was found to have a urine infection. Patient was admitted in in October for recurrent falls and UTI sepsis with E. coli resistant to fluoroquinolones. Patient is fairly active at baseline and goes to gym 4 times a week. Patient had a detailed workup including MRI, EEG and echocardiogram on his admission in October, echocardiogram suggest moderate concentric left ventricle hypertrophy with EF 55-60% on the valves with mild mitral and tricuspid regurgitation. Right ventricle pressures were less than 35mm. Vitals reviewed patient is afebrile pulse 63 respiratory rate 16 blood pressure 147/99 oxybutynin 95% on room air. Labs reviewed WBC 13.9 hemoglobin 17.4 sodium 136 potassium 6.1 bicarbonate 19 creatinine 1.35 and blood sugar 242 lactic acid 7.1 AST 660 ALT 259 with CK levels [id number] troponin [address] head and cervical spine showed right ICA hyperdense and recommended CT angiography to: For list exclude internal thrombosis no acute intracranial hemorrhage or mass effect degenerative and nonspecific white matter changes most typical remote ischemia slightly gait greater central competent of ventricle dilation can be associated with normal pressure hydrocephalus severe multilevel degenerative disc disease no fracture X-rays humerus was negative for fracture or dislocation. X-ray forearm suggestive no acute fracture diffuse soft tissue edema suggestive of posttraumatic or postinfectious edema shoulder x-ray on the right shows hairline fracture nondisplaced distal right clavicle with soft tissue edema. Chest x-ray with right lower lobe A to lactose is only infiltrated nodular density right lung may be related to superimposed structure short-term follow-up with repeat chest x-ray recommended. EKG suggested normal sinus rhythm with T-wave abnormality noted x-ray hand no fracture or dislocation but patient's patient's were flexed extensive soft tissue swelling noted 03/22: She and has been hypotensive and ordered for 2 more liters of IV fluid bolus. Blood culture and urine culture in progress. Patient has been afebrile, temperature actually on the lower side 96.7-97.5. Heart rate 78, blood pressure 110/71 after fluids, pulse ox 93% on 4 L nasal cannula. Repeat blood work reveals WBC 12.0. Sodium 133, potassium 6.5, chloride 112, CO2 10, BUN 31 and creatinine 2.65. Blood sugars running between 207 and 221. Repeat lactic acid 2.7. CK 60,158. AST 1424, ALT 87. Kayexalate 30 g, calcium gluconate 1 g with 10 units of regular insulin and D50 50 ML's all ordered. Consult added for nephrology. Orthopedics is planning on returning to or tomorrow to remove wound VAC and assess wounds and possible new wound VAC placement, possible closure partial closure of the wounds. Patient also followed by neurology and infectious disease. Patient is currently on 2 g every 12 hours 03/23: Due to worsening renal function and worsening rhabdomyolysis as well as hypotension yesterday, patient was moved into the intensive care unit. His uri ne output has been 20-30 ML's. He has been continued on IV fluids currently at 150 mL per hour. We will add in fluid bolus of 2 L. Patient has been seen by nephrology and was started on bicarb drip yesterday now discontinued. Continue to assess daily for need for renal replacement therapy. Vascular surgery is following for possible dialysis catheter. No further vascular intervention for the upper extremity at this time. Neurology has no further plans will recommend follow-up with his neurologist and will sign off the case for now. Renal ultrasound revealed suboptimal study without hydronephrosis bilaterally. 03/24 patient examined at bedside. He has no improvement in sensation involving her right upper extremity. He did have an episode last night when he woke up in Panic as patient thought he lost hus arm. He is otherwise alert and answer questions appropriately. Vitals stable hemoglobin stable, calcium is 6.2 creatinine kinase is 39,000 181. IV fluids are running at 1 50 mL per hour urine output approximately 30 ML per hour. 1 L bolus given to the patient 1 calcium 1 g calcium gluconate ordered. Tums Ultra 45 and repeat treatment 3 times a day. Discussed with patient the possible need to be on PTSD reluctant to start at this point medication. 03/25 patient examined at bedside. He is complaining of significant pain in his right arm is otherwise stable patient's to 94% on 2 L. Hemoglobin stable at 10, BUN and creatinine continued to trend up. Urine continues to remain infected. Urine output is 1.4 L in the past 24 hours patient may need dialysis if no i mprovement in unit urine output is seen. Dilaudid 0.5 mg stat given ROS Constitutional: Denies chills, Denies fever, Denies lethargy, Denies malaise, Denies poor appetite, Denies weakness, Denies weight loss Eyes: denies decreased vision, denies diplopia, denies discharge, denies pain Ears: deny: decreased hearing Ears, nose, mouth and throat: Denies dental pain, Denies headache, Denies nasal discharge, Denies nose pain Cardiovascular: Denies chest pain, Denies decreased exercise tolerance, Denies edema, Denies high blood pressure, Denies irregular heart beat, Denies palpitations, Denies paroxysmal nocturnal dyspnea, Denies rapid heart beat, Denies shortness of breath Respiratory: Denies congestion, Denies cough, Denies cough with sputum, Denies dyspnea, Denies home oxygen, Denies wheezing Gastrointestinal: Denies abdominal pain, Denies change in bowel habits, Denies coffee ground emesis, Denies heartburn, Denies hematemesis, Denies hematochezia, Denies loss of appetite, Denies nausea, Denies vomiting Genitourinary: Denies dysuria, Denies flank pain, Denies kidney stones, Denies menorrhagia, Denies urgency, Denies urinary frequency Musculoskeletal: Denies gait dysfunction, Denies limitation of motion, Denies morning stiffness, Denies muscle cramps endorses contracture, swelling involving right upper extremity Integumentary: Denies rash, Denies wounds, Denies brittle nails, Denies change in hair/nails, Denies darkening of skin Neurological: Denies balance difficulties, no change in speech, Denies double vision, Denies gait dysfunction, Denies loss of vision, Denies motor disturbance, Denies numbness, Denies paralysis, induces tingling involving the dorsal aspect of foot Denies seizures Psychiatric: Denies anxiety, Denies depression mild PTSD Endocrine: Denies excessive sweating, Denies excessive thirst, Denies high blood sugars, Denies palpitations Hematologic/Lymphatic: Denies easy bruising, Denies lymphadenopathy Physical exam - Constitutional General appearance: Alert and oriented 3 cooperative, no acute distress, obese - EENT Eyes: anicteric sclerae, PERRLA, normal appearance ENT: hearing grossly normal - Neck Neck: no lymphadenopathy, normal ROM, no other, no rigidity, no stridor, no thyromegaly - Respiratory Respiratory: bilateral: CTA, negative: diminished, dullness, rales, rhonchi - Cardiovascular Rhythm: regular Heart sounds: normal: S1, S2 Abnormal Heart Sounds: no systolic murmur, no diastolic murmur, no rub, no S3 Gallop, no S4 Gallop, no click, no other - Gastrointestinal General gastrointestinal: normal bowel sounds, soft nontender - Integumentary Integumentary: Significant bruising and ecchymosis involving right upper extremity involving the hand, forearm and arm with significant swelling. Mike watts has no movement of the right arm. - Neurologic Neurologic: 0/5 on flexion/extension /internal rotation and external rotation involving right upper extremity, lack of sensation involving the right forearm. Sensation intact in the upper arm. tingling and numbness involving the dorsal aspect of both feet - Musculoskeletal Musculoskeletal: gait not assessed, , right upper extremity with no active movement, hand in flexion with diffuse swelling involving the digits, wrist, forearm and upper arm and axilla. Nontender to touch peripheral pulses are diminished involving the right upper extremity. No mobility involving shoulder, elbow or wrist or fingers. Lack of sensation involving the right upper extremity. Passive shoulder movement present with no significant pain. No significant pain involving forearm or hand. capillary refill close to 2 seconds. Peripheral pulses are diminished compared to the other extremity. - Psychiatric Psychiatric: A&O x's 3, appropriate affect Assessment and plan Right forearm compartment syndrome -Status post dorsal and volar fasciotomies with Dr. Paez, 03/21. Vascular surgery Dr. Gerardo is not planning any further intervention. Patient is to return to the or today possibly. -Patient is cleared for surgery but carries a risk of 2.4% for any acute cardiac event involving cardiac nonfatal IN or nonfatal cardiac arrest. His surge ry is eminent to save his limb. Patient echocardiogram from October 2020 denies any history of previous IN with ejection fraction of 55-60%. - Repeat surgical intervention on 03/23 I&D done patient on wound back - Uncontrolled diabetes ordered Acute rhabdomyolysis secondary to injury - Continue IV fluids at 150 mL per hour -Repeat CK tomorrow -Status post bicarb drip -Fluid bolus of 2 L ordered for today. Hypo-calcemia -Status post calcium gluconate calcium carbonate 500 3 times a day - Distal nondisplaced right clavicle fracture Acute COVID19 infection - Continue isolation Acute metabolic encephalopathy secondary to sepsis and acute kidney injury, rhabdomyolysis, Dilaudid Consult with neurology appreciated Stroke is not suspected Vitamin B12 1000 g daily added by neurology Hyperkalemia secondary to Rhabdomyolysis - Repeat calcium gluconate 1 g, 10 units of regular insulin and 50 ML's of D50. - Consult nephrology - EKG suggestive of T-wave changes Acute lactic acidosis secondary to hypovolemia - Repeat lactic acid - Status post 2 L IV fluids - Continue IV fluids at 1 30 mL/h. Patient may need further boluses Acute kidney injury secondary to rhabdomyolysis secondary to ATN - Continue IV fluids with normal saline at 130 mL per hour - Baseline creatinine 0.8 -Avoid nephrotoxic agent -Hold metformin -Consult nephrology appreciated - May need dialysis next 24 Acute transaminitis - Liver enzymes have worsened since last admission -Continue perfusion with IV fluids Type II uncontrolled diabetes - Last A1c 7.2 - Hold metformin - Continue insulin sliding Scale and Lantus at 5 units at at bedtime History of UTI - Would recommend urinalysis as patient was septic in October 2020 and is currently undergoing treatment with urologist according to the daughter bedside. History of Sepsis secondary to acute urinary tract infection In October 2020 - Unclear if patient fall was a result of confusion. Infectious metabolic encephalopathy - resolved - CT head and neck suggestive of hyperdense involving right carotid. We will evaluate with CT angiogram head and neck.. Also mentioned normal pressure hydrocephalus on the CAT scan though MRI was negative for hydrocephalus in October Frequent falls possibly related to worsening Parkinson's, exacerbated by sepsis. - Does PT as outpatient. We'll evaluate for rehab once patient is stableDiabetic polyneuropathy. Lyrica 225 mg twice daily Parkinson's. -Continue Sinemet 251 101-1/2 3 times daily. Hypothyroidism. -Continue levothyroxine 150 Scott grams daily. Guillain-[place] syndrome in 2007. Benign prostatic hypertrophy. -Continue Flomax or 0.4 mg daily. GI prophylaxis. Protonix. DVT prophylaxis. Heparin subcu. DISCHARGE PLAN Home, to be determined. PT and OT consults. Objective - Vital Signs Vital signs: Vital Signs Temp 98 F 03/25/21 08:00 Pulse 80 03/25/21 14:00 Resp 16 03/25/21 14:00 BP 108/49 03/25/21 14:00 Pulse Ox 94 L 03/25/21 14:00 Intake & Output 03/24/21 03/25/21 03/25/21 18:59 06:59 18:59 Intake Total 3400 2580 1750 Output Total 805 565 815 Balance 2595 2014 935 Weight 124.4 kg Intake: IV 150 1650 1200 Dextrose 5% in Water 1, 150 000 ml @ 150 mls/hr IV . Q7H40M ANABEL with Sodium Bicarb (1 Meq/ml) 150 ml Rx#:[id number] Sodium Chloride 0.9% 1, 1650 1200 000 ml @ 150 mls/hr IV . Q6H40M ANABEL Rx#:[id number] Intake, IV Titration 2650 150 Amount IV Fluid Continuation 800 1000 ml @ 0 mls/hr IV .STK- MED ONE Rx#:[id number] Sodium Chloride 0.9% 1, 1650 150 000 ml @ 150 mls/hr IV . Q6H40M ANABEL Rx#:[id number] Oral 600 550 Tube Feeding 780 Output: Drainage 400 100 500 Right Arm 400 100 500 Urine 405 465 315 Other: Voiding Method Indwelling Catheter Indwelling Catheter Indwelling Catheter # Bowel Movements 1 ABP, PAP, CO, CI - Last Documented Arterial Blood Pressure 114/75 - Labs CBC & Chem 7: 03/25/21 05:28 03/25/21 09:22 Labs: Abnormal Lab Results - Last 24 Hours (Table) 03/24/21 03/24/21 03/24/21 Range/Units 16:11 16:43 20:21 RBC (4.30-5.90) m/uL Hgb (13.0-17.5) gm/dL Hct (39.0-53.0) % Plt Count (150-450) k/uL Lymphocytes # (1.0-4.8) k/uL Sodium (137-145) mmol/L BUN (9-20) mg/dL Creatinine (0.66-1.25) mg/dL Glucose (74-99) mg/dL POC Glucose (mg/dL) 155 H 139 H (75-99) mg/dL Calcium (8.4-10.2) mg/dL Ionized Calcium Sukhi (4.5-5.3) mg/dL Phosphorus 5.7 H (2.5-4.5) mg/dL C-Reactive Protein (<1.0) mg/dL Urine Protein (Negative) Urine Blood (Negative) Ur Leukocyte Esterase (Negative) Urine RBC (0-5) /hpf Urine WBC (0-5) /hpf Urine WBC Clumps (None) /hpf Amorphous Sediment (None) /hpf Urine Bacteria (None) /hpf Hyaline Casts (0-2) /lpf Urine Mucus (None) /hpf 03/25/21 03/25/21 03/25/21 Range/Units 00:10 05:28 05:28 RBC 3.52 L (4.30-5.90) m/uL Hgb 10.8 L (13.0-17.5) gm/dL Hct 33.7 L (39.0-53.0) % Plt Count 114 L (150-450) k/uL Lymphocytes # 0.5 L (1.0-4.8) k/uL Sodium (137-145) mmol/L BUN (9-20) mg/dL Creatinine (0.66-1.25) mg/dL Glucose (74-99) mg/dL POC Glucose (mg/dL) (75-99) mg/dL Calcium (8.4-10.2) mg/dL Ionized Calcium Sukhi 4.1 L (4.5-5.3) mg/dL Phosphorus (2.5-4.5) mg/dL C-Reactive Protein (<1.0) mg/dL Urine Protein 2+ H (Negative) Urine Blood Large H (Negative) Ur Leukocyte Esterase Large H (Negative) Urine RBC >182 H (0-5) /hpf Urine WBC >182 H (0-5) /hpf Urine WBC Clumps Occasional H (None) /hpf Amorphous Sediment Occasional H (None) /hpf Urine Bacteria Occasional H (None) /hpf Hyaline Casts 8 H (0-2) /lpf Urine Mucus Occasional H (None) /hpf 03/25/21 03/25/21 03/25/21 Range/Units 05:28 06:49 09:22 RBC (4.30-5.90) m/uL Hgb (13.0-17.5) gm/dL Hct (39.0-53.0) % Plt Count (150-450) k/uL Lymphocytes # (1.0-4.8) k/uL Sodium 135 L (137-145) mmol/L BUN 50 H (9-20) mg/dL Creatinine 4.89 H (0.66-1.25) mg/dL Glucose 113 H (74-99) mg/dL POC Glucose (mg/dL) 112 H (75-99) mg/dL Calcium 6.6 L (8.4-10.2) mg/dL Ionized Calcium S[place]hi (4.5-5.3) mg/dL Phosphorus (2.5-4.5) mg/dL C-Reactive Protein 8.4 H (<1.0) mg/dL Urine Protein (Negative) Urine Blood (Negative) Ur Leukocyte Esterase (Negative) Urine RBC (0-5) /hpf Urine WBC (0-5) /hpf Urine WBC Clumps (None) /hpf Amorphous Sediment (None) /hpf Urine Bacteria (None) /hpf Hyaline Casts (0-2) /lpf Urine Mucus (None) /hpf 03/25/21 Range/Units 11:26 RBC (4.30-5.90) m/uL Hgb (13.0-17.5) gm/dL Hct (39.0-53.0) % Plt Count (150-450) k/uL Lymphocytes # (1.0-4.8) k/uL Sodium (137-145) mmol/L BUN (9-20) mg/dL Creatinine (0.66-1.25) mg/dL Glucose (74-99) mg/dL POC Glucose (mg/dL) 145 H (75-99) mg/dL Calcium (8.4-10.2) mg/dL Ionized Calcium S[place] (4.5-5.3) mg/dL Phosphorus (2.5-4.5) mg/dL C-Reactive Protein (<1.0) mg/dL Urine Protein (Negative) Urine Blood (Negative) Ur Leukocyte Esterase (Negative) Urine RBC (0-5) /hpf Urine WBC (0-5) /hpf Urine WBC Clumps (None) /hpf Amorphous Sediment (None) /hpf Urine Bacteria (None) /hpf Hyaline Casts (0-2) /lpf Urine Mucus (None) /hpf Microbiology - Last 24 Hours (Table) 03/25/21 00:10 Urine Culture - Preliminary Urine,Voided 03/23/21 04:45 Blood Culture - Preliminary Blood No Growth after 48 hours 03/21/21 18:34 Blood Culture - Preliminary Blood No Growth after 72 hours 03/21/21 18:34 Blood Culture - Preliminary Blood No Growth after 72 hours 03/22/21 03:36 Urine Culture - Final Urine,Voided Escherichia coli Escherichia coli#2
--- NOTE | 2021-03-25 16:26 | P.PN ---
Subjective Progress Note Date: 03/25/21 Principal diagnosis: Right forearm compartment syndrome , covid 19 infection Patient is a 70-year-old male who was brought into the hospital after the patient was started between bed and nightstand for 2 days noticed to have compartment syndrome right forearm status post fasciotomy 3, patient was transferred to the ICU last night because of worsening hypotension. Patient was taken back to the OR 03/23/2021 and is status post debridement of devitalized tissue and reapplication of the wound VAC On today's evaluation, and that is 03/25/2021 the patient continues to be afebrile, the patient is symptomatically stable not any pressor support, the patient is currently on home, patient has been complaining of pain the right forearm But no worsening, patient denies having any chest pain shortness of breath , no significant cough , the patient denies nausea no vomiting no abdominal pain and no diarrhea Objective - Vital Signs Vital signs: Vital Signs Temp 98.8 F 03/25/21 16:00 Pulse 80 03/25/21 16:00 Resp 14 03/25/21 16:00 BP 131/66 03/25/21 16:00 Pulse Ox 93 L 03/25/21 16:00 Intake & Output 03/24/21 03/25/21 03/25/21 18:59 06:59 18:59 Intake Total 3400 2580 2200 Output Total 116 759 3967 Balance 2595 2015 810 Weight 124.4 kg Intake: IV 150 1650 1500 Dextrose 5% in Water 1, 150 000 ml @ 150 mls/hr IV . Q7H40M [facility] with Sodium Bicarb (1 Meq/ml) 150 ml Rx#:[id number] Sodium Chloride 0.9% 1, 1650 1500 000 ml @ 150 mls/hr IV . Q6H40M [facility] Rx#:[id number] Intake, IV Titration 2650 150 Amount IV Fluid Continuation 800 1000 ml @ 0 mls/hr IV .[facility]- [facility] Rx#:[id number] Sodium Chloride 0.9% 1, 1650 150 000 ml @ 150 mls/hr IV . Q6H40M [facility] Rx#:[id number] Oral 600 700 Tube Feeding 780 Output: Drainage 213 860 7163 Right Arm 134 553 7181 Urine 405 465 390 Other: Voiding Method Indwelling Catheter Indwelling Catheter Indwelling Catheter # Bowel Movements 1 ABP, PAP, CO, CI - Last Documented Arterial Blood Pressure 114/75 - Exam GENERAL DESCRIPTION:[ Patient is awake and alert in no distress] HEENT: [Oral mucosa is dry and no pharyngeal erythema] EYES : [No pallor or scleral icterus] RESPIRATORY SYSTEM: [Unlabored breathing decreased breath sounds at the base] CARDIA VASCULAR SYSTEM: [S1-S2 regular rate and rhythm no murmur] GI: [Abdominal soft there's no tenderness no organomegaly] EXTREMITIES: [Right forearm currently covered with a wound VAC there's no significant swelling no redness] - Labs CBC & Chem 7: 03/25/21 05:28 03/25/21 09:22 Labs: Abnormal Lab Results - Last 24 Hours (Table) 03/24/21 03/24/21 03/24/21 Range/Units 16:11 16:43 20:21 RBC (4.30-5.90) m/uL Hgb (13.0-17.5) gm/dL Hct (39.0-53.0) % Plt Count (150-450) k/uL Lymphocytes # (1.0-4.8) k/uL Sodium (137-145) mmol/L BUN (9-20) mg/dL Creatinine (0.66-1.25) mg/dL Glucose (74-99) mg/dL POC Glucose (mg/dL) 155 H 139 H (75-99) mg/dL Calcium (8.4-10.2) mg/dL Ionized Calcium Sukhi (4.5-5.3) mg/dL Phosphorus 5.7 H (2.5-4.5) mg/dL Creatine Kinase (55-170) U/L C-Reactive Protein (<1.0) mg/dL Urine Protein (Negative) Urine Blood (Negative) Ur Leukocyte Esterase (Negative) Urine RBC (0-5) /hpf Urine WBC (0-5) /hpf Urine WBC Clumps (None) /hpf Amorphous Sediment (None) /hpf Urine Bacteria (None) /hpf Hyaline Casts (0-2) /lpf Urine Mucus (None) /hpf 03/25/21 03/25/21 03/25/21 Range/Units 00:10 05:28 05:28 RBC 3.52 L (4.30-5.90) m/uL Hgb 10.8 L (13.0-17.5) gm/dL Hct 33.7 L (39.0-53.0) % Plt Count 114 L (150-450) k/uL Lymphocytes # 0.5 L (1.0-4.8) k/uL Sodium (137-145) mmol/L BUN (9-20) mg/dL Creatinine (0.66-1.25) mg/dL Glucose (74-99) mg/dL POC Glucose (mg/dL) (75-99) mg/dL Calcium (8.4-10.2) mg/dL Ionized Calcium Sukhi 4.1 L (4.5-5.3) mg/dL Phosphorus (2.5-4.5) mg/dL Creatine Kinase (55-170) U/L C-Reactive Protein (<1.0) mg/dL Urine Protein 2+ H (Negative) Urine Blood Large H (Negative) Ur Leukocyte Esterase Large H (Negative) Urine RBC >182 H (0-5) /hpf Urine WBC >182 H (0-5) /hpf Urine WBC Clumps Occasional H (None) /hpf Amorphous Sediment Occasional H (None) /hpf Urine Bacteria Occasional H (None) /hpf Hyaline Casts 8 H (0-2) /lpf Urine Mucus Occasional H (None) /hpf 03/25/21 03/25/21 03/25/21 Range/Units 05:28 06:49 09:22 RBC (4.30-5.90) m/uL Hgb (13.0-17.5) gm/dL Hct (39.0-53.0) % Plt Count (150-450) k/uL Lymphocytes # (1.0-4.8) k/uL Sodium 135 L (137-145) mmol/L BUN 50 H (9-20) mg/dL Creatinine 4.89 H (0.66-1.25) mg/dL Glucose 113 H (74-99) mg/dL POC Glucose (mg/dL) 112 H (75-99) mg/dL Calcium 6.6 L (8.4-10.2) mg/dL Ionized Calcium Sukhi (4.5-5.3) mg/dL Phosphorus (2.5-4.5) mg/dL Creatine Kinase (55-170) U/L C-Reactive Protein 8.4 H (<1.0) mg/dL Urine Protein (Negative) Urine Blood (Negative) Ur Leukocyte Esterase (Negative) Urine RBC (0-5) /hpf Urine WBC (0-5) /hpf Urine WBC Clumps (None) /hpf Amorphous Sediment (None) /hpf Urine Bacteria (None) /hpf Hyaline Casts (0-2) /lpf Urine Mucus (None) /hpf 03/25/21 03/25/21 Range/Units 09:22 11:26 RBC (4.30-5.90) m/uL Hgb (13.0-17.5) gm/dL Hct (39.0-53.0) % Plt Count (150-450) k/uL Lymphocytes # (1.0-4.8) k/uL Sodium (137-145) mmol/L BUN (9-20) mg/dL Creatinine (0.66-1.25) mg/dL Glucose (74-99) mg/dL POC Glucose (mg/dL) 145 H (75-99) mg/dL Calcium (8.4-10.2) mg/dL Ionized Calcium Sukhi (4.5-5.3) mg/dL Phosphorus (2.5-4.5) mg/dL Creatine Kinase 45393 H* (55-170) U/L C-Reactive Protein (<1.0) mg/dL Urine Protein (Negative) Urine Blood (Negative) Ur Leukocyte Esterase (Negative) Urine RBC (0-5) /hpf Urine WBC (0-5) /hpf Urine WBC Clumps (None) /hpf Amorphous Sediment (None) /hpf Urine Bacteria (None) /hpf Hyaline Casts (0-2) /lpf Urine Mucus (None) /hpf Microbiology - Last 24 Hours (Table) 03/25/21 00:10 Urine Culture - Preliminary Urine,Voided 03/23/21 04:45 Blood Culture - Preliminary Blood No Growth after 48 hours 03/21/21 18:34 Blood Culture - Preliminary Blood No Growth after 72 hours 03/21/21 18:34 Blood Culture - Preliminary Blood No Growth after 72 hours 03/22/21 03:36 Urine Culture - Final Urine,Voided Escherichia coli Escherichia coli#2 Assessment and Plan (1) Compartment syndrome of forearm Current Visit: Yes Status: Acute Priority: High Onset Date: ~03/21/21 Code(s): T79.A19A - TRAUMATIC COMPARTMENT SYNDROME OF UNSP UPPER EXTREMITY, INIT SNOMED Code(s): 359820670 (2) COVID-19 Current Visit: Yes Status: Acute Code(s): U07.1 - COVID-19 SNOMED Code(s): 133290178 Plan: Patient with right forearm compartment syndrome traumatic in this patient with status post fasciotomy and wound VAC application 2, patient is afebrile and his white count is normalized, blood culture has been negative so far 2-patient did have a positive covid test, no significant respiratory symptoms and the patient is currently on room air, patient to continue with current supportive treatment 3-positive urine culture with ESBL E. coli repeat urine history positive urinalysis is still positive, antibiotics will be switched over to Invanz while waiting for repeat urine cultures to finalize
[2021-03-25 18:05] LABS: Glucose,Whole Blood 110 mg/dL (75-99)
[2021-03-25] MEDS: MEROPENEM 1 GM in SODIUM CHLORIDE 0.9% 100 ML IVPB SCH (18:38)
[2021-03-25 20:43] LABS: Glucose,Whole Blood 160 mg/dL (75-99)
[2021-03-25] MEDS: INSULIN DETEMIR (LEVEMIR) 100 UNIT/ML SYR SQ SCH (21:37)
[2021-03-26] MEDS: HYDROmorphone 0.5 MG/0.5 ML SYRINGE IVP PRN (00:49)
[2021-03-26] MEDS: SODIUM CHLORIDE 0.9% 1,000 ML IV SCH ×3 (05:35→17:08)
[2021-03-26 06:38] LABS: Glucose,Whole Blood 106 mg/dL (75-99)
[2021-03-26] MEDS: LEVOTHYROXINE 75 MCG TAB PO SCH (06:39)
[2021-03-26] MEDS: INSULIN ASPART (NovoLOG) 100 UNIT/ML VIAL SQ SCH ×4 (06:39→21:55)
[2021-03-26] MEDS: MEROPENEM 1 GM in SODIUM CHLORIDE 0.9% 100 ML IVPB SCH ×2 (06:42→17:14)
[2021-03-26 06:51] LABS: Total Bilirubin 0.7 mg/dL (0.2-1.3); Total Protein 4.3 g/dL (6.3-8.2)
[2021-03-26] MEDS: CALCIUM CARBONATE 500 MG CHEWABLE PO SCH ×3 (09:32→21:57)
[2021-03-26] MEDS: MULTIVITAMINS, THERA 1 EACH TAB PO SCH (09:32)
[2021-03-26] MEDS: PREGABALIN 75 MG CAP PO SCH ×3 (09:32→21:55)
[2021-03-26] MEDS: ASCORBIC ACID 500 MG TAB PO SCH (09:32)
[2021-03-26] MEDS: ZINC SULFATE 220 MG CAP PO SCH (09:32)
[2021-03-26] MEDS: CYANOCOBALAMIN 500 MCG TAB PO SCH (09:33)
[2021-03-26] MEDS: CARBIDOPA-LEVODOPA 25-100 MG 1 EACH TAB PO SCH ×3 (09:33→21:56)
[2021-03-26] MEDS: HEPARIN SODIUM,PORCINE/PF 5,000 UNIT/0.5 ML SYRINGE SQ SCH ×2 (09:34→21:54)
[2021-03-26] MEDS: TAMSULOSIN 0.4 MG CAP.ER.24H PO SCH (09:34)
--- NOTE | 2021-03-26 10:12 | P.PN ---
Subjective Principal diagnosis: Patient is seen for follow-up for acute kidney injury from rhabdo my lysis/ATN and hyperkalemia. Renal function has been improving. Serum creatinine is down to 4.6 mg/dL from 4.8 yesterday. Urine output maintained at 40-50 mL an hour. Patient is maintained on IV fluids at 1 50 mL an hour. He is scheduled for surgery on his right upper extremity Objective - Vital Signs Vital signs: Vital Signs Temp 98.7 F 03/26/21 04:00 Pulse 73 03/26/21 07:00 Resp 13 03/26/21 07:00 BP 105/62 03/26/21 07:00 Pulse Ox 92 L 03/26/21 07:00 Intake & Output 03/25/21 03/26/21 03/26/21 18:59 06:59 18:59 Intake Total 2500 1800 150 Output Total 1490 1470 40 Balance 1010 330 110 Weight 127 kg Intake: IV 1800 1800 150 Sodium Chloride 0.9% 1, 1800 1800 150 000 ml @ 150 mls/hr IV . Q6H40M [facility] Rx#:[id number] Oral 700 Output: Drainage 1000 950 Right Arm 1000 950 Urine 490 520 40 Other: Voiding Method Indwelling Catheter Indwelling Catheter # Bowel Movements 1 ABP, PAP, CO, CI - Last Documented Arterial Blood Pressure 114/75 - Exam On examination patient is comfortable awake alert oriented 3. He is not in any acute distress. Examination of the lower extremities shows 1+ edema bilaterally. Right upper extremity is currently wrapped and elevated. Abdomen is soft nontender. Lungs and heart are not examined due to COVID infection. - Labs CBC & Chem 7: 03/25/21 05:28 03/26/21 06:11 Labs: Abnormal Lab Results - Last 24 Hours (Table) 03/25/21 03/25/21 03/25/21 Range/Units 09:22 11:26 18:02 Sodium (137-145) mmol/L Chloride (98-107) mmol/L Carbon Dioxide (22-30) mmol/L BUN (9-20) mg/dL Creatinine (0.66-1.25) mg/dL POC Glucose (mg/dL) 145 H 110 H (75-99) mg/dL Calcium (8.4-10.2) mg/dL AST (17-59) U/L Creatine Kinase 93101 H* (55-170) U/L Total Protein (6.3-8.2) g/dL Albumin (3.5-5.0) g/dL 03/25/21 03/26/21 03/26/21 Range/Units 20:41 06:11 06:36 Sodium 134 L (137-145) mmol/L Chloride 108 H (98-107) mmol/L Carbon Dioxide 20 L (22-30) mmol/L BUN 57 H (9-20) mg/dL Creatinine 4.64 H (0.66-1.25) mg/dL POC Glucose (mg/dL) 160 H 106 H (75-99) mg/dL Calcium 7.0 L (8.4-10.2) mg/dL AST 873 H (17-59) U/L Creatine Kinase (55-170) U/L Total Protein 4.3 L (6.3-8.2) g/dL Albumin 2.0 L (3.5-5.0) g/dL Microbiology - Last 24 Hours (Table) 03/23/21 04:45 Blood Culture - Preliminary Blood No Growth after 72 hours 03/22/21 03:36 Urine Culture - Final Urine,Voided Escherichia coli Escherichia coli#2 03/21/21 18:34 Blood Culture - Preliminary Blood No Growth after 96 hours 03/21/21 18:34 Blood Culture - Preliminary Blood No Growth after 96 hours 03/25/21 00:10 Urine Culture - Preliminary Urine,Voided Assessment and Plan Assessment: 1. Acute kidney injury nonoliguric ATN secondary to rhabdo my lysis/CT contrast. Baseline creatinine 1.0 mg/dL. Renal function is improving. Continue with IV fluids. 2. Traumatic rhabdo my lysis with crush injury 3. Compartment syndrome of right arm 4. Metabolic acidosis associated with acute kidney injury currently improving 5. Hypocalcemia associated with hyperphosphatemia from rhabdo my lysis rule out nutritional vitamin D deficiency 6. COVID-19 infection currently maintained on room air. Plan: Continue with IV fluids. Patient is currently maintained on normal saline. I will decrease rate about 70 mL an hour once patient is eating. Check 25 hydroxyvitamin D levels. Repeat labs in a.m.
[2021-03-26 11:46] LABS: Glucose,Whole Blood 116 mg/dL (75-99)
--- NOTE | 2021-03-26 11:49 | P.PN ---
Subjective Progress Note Date: 03/26/21 70 years old male patient of Dr. Pennington with past medical history of Parkinson's, diabetes with diabetic neuropathy, hypothyroidism, calendar in 2007, chronic back pain with lumbar surgery 25 years ago comes in after he was found pinned in between his bed and the nightstand. Patient stated that he was rolling in his bed when he got stuck. According to the daughter bedside it appears patient has been stuck there for 2 days since he has not taken his medication. Patient was unable to reach anybody. Since nobody heard anything from the patient family called neighbors and friends to check on him. Patient was alert and was found suspended and there in between his bed and nightstand and unable to move himself from this position. Patient was released from his position and brought to the hospital. He is unable to move his right upper extremity with significant bruising and ecchymosis involving the forearm and the hand. Patient has no mobility involving his right arm , with contracture involving his hand.. Patient denies dizziness, confusion or recent falls. He states he was doing well and had no fever, chills, polyuria increased frequency or concern for sepsis. He did see a urologist at [facility] for his recurrent UTIs in January and was found to have a urine infection. Patient was admitted in in October for recurrent falls and UTI sepsis with E. coli resistant to fluoroquinolones. Patient is fairly active at baseline and goes to gym 4 times a week. Patient had a detailed workup including MRI, EEG and echocardiogram on his admission in October, echocardiogram suggest moderate concentric left ventricle hypertrophy with EF 55-60% on the valves with mild mitral and tricuspid regurgitation. Right ventricle pressures were less than 35mm. Vitals reviewed patient is afebrile pulse 63 respiratory rate 16 blood pressure 147/99 oxybutynin 95% on room air. Labs reviewed WBC 13.9 hemoglobin 17.4 sodium 136 potassium 6.1 bicarbonate 19 creatinine 1.35 and blood sugar 242 lactic acid 7.1 AST 660 ALT 259 with CK levels 369019 troponin [address] head and cervical spine showed right ICA hyperdense and recommended CT angiography to: For list exclude internal thrombosis no acute intracranial hemorrhage or mass effect degenerative and nonspecific white matter changes most typical remote ischemia slightly gait greater central competent of ventricle dilation can be associated with normal pressure hydrocephalus severe multilevel degenerative disc disease no fracture X-rays humerus was negative for fracture or dislocation. X-ray forearm suggestive no acute fracture diffuse soft tissue edema suggestive of posttraumatic or postinfectious edema shoulder x-ray on the right shows hairline fracture nondisplaced distal right clavicle with soft tissue edema. Chest x-ray with right lower lobe A to lactose is only infiltrated nodular density right lung may be related to superimposed structure short-term follow-up with repeat chest x-ray recommended. EKG suggested normal sinus rhythm with T-wave abnormality noted x-ray hand no fracture or dislocation but patient's patient's were flexed extensive soft tissue swelling noted 03/22: She and has been hypotensive and ordered for 2 more liters of IV fluid bolus. Blood culture and urine culture in progress. Patient has been afebrile, temperature actually on the lower side 96.7-97.5. Heart rate 78, blood pressure 110/71 after fluids, pulse ox 93% on 4 L nasal cannula. Repeat blood work reveals WBC 12.0. Sodium 133, potassium 6.5, chloride 112, CO2 10, BUN 31 and creatinine 2.65. Blood sugars running between 207 and 221. Repeat lactic acid 2.7. CK 60,158. AST 1424, ALT 87. Kayexalate 30 g, calcium gluconate 1 g with 10 units of regular insulin and D50 50 ML's all ordered. Consult added for nephrology. Orthopedics is planning on returning to or tomorrow to remove wound VAC and assess wounds and possible new wound VAC placement, possible closure partial closure of the wounds. Patient also followed by neurology and infectious disease. Patient is currently on 2 g every 12 hours 03/23: Due to worsening renal function and worsening rhabdomyolysis as well as hypotension yesterday, patient was moved into the intensive care unit. His uri ne output has been 20-30 ML's. He has been continued on IV fluids currently at 150 mL per hour. We will add in fluid bolus of 2 L. Patient has been seen by nephrology and was started on bicarb drip yesterday now discontinued. Continue to assess daily for need for renal replacement therapy. Vascular surgery is following for possible dialysis catheter. No further vascular intervention for the upper extremity at this time. Neurology has no further plans will recommend follow-up with his neurologist and will sign off the case for now. Renal ultrasound revealed suboptimal study without hydronephrosis bilaterally. 03/24 patient examined at bedside. He has no improvement in sensation involving her right upper extremity. He did have an episode last night when he woke up in Panic as patient thought he lost hus arm. He is otherwise alert and answer questions appropriately. Vitals stable hemoglobin stable, calcium is 6.2 creatinine kinase is 39,000 181. IV fluids are running at 1 50 mL per hour urine output approximately 30 ML per hour. 1 L bolus given to the patient 1 calcium 1 g calcium gluconate ordered. Tums Ultra 45 and repeat treatment 3 times a day. Discussed with patient the possible need to be on PTSD reluctant to start at this point medication. 03/25 patient examined at bedside. He is complaining of significant pain in his right arm is otherwise stable patient's to 94% on 2 L. Hemoglobin stable at 10, BUN and creatinine continued to trend up. Urine continues to remain infected. Urine output is 1.4 L in the past 24 hours patient may need dialysis if no i mprovement in unit urine output is seen. Dilaudid 0.5 mg stat given 03/26: Patient remains in the intensive care unit. Urine culture finalized with 2 E. coli 1 ESBL, currently on meropenem and followed by Dr. Muro. Nephrology has decreased IV fluids to 70 ML's per hour once patient is eating. He is scheduled for another I&D today with orthopedics. He continues to have no movement to the right upper extremity and has slight sensation. Patient has been afebrile, heart rate in the 70s, blood pressure 121/65, pulse ox 94% on room air. Sodium 134, potassium 4, chloride 108, CO2 20, BUN 57 creatinine 4.64. Blood sugars running between 106 and 160. AST 873. ROS Constitutional: Denies chills, Denies fever, Denies lethargy, Denies malaise, Denies poor appetite, Denies weakness, Denies weight loss Eyes: denies decreased vision, denies diplopia, denies discharge, denies pain Ears: deny: decreased hearing Ears, nose, mouth and throat: Denies dental pain, Denies headache, Denies nasal discharge, Denies nose pain Cardiovascular: Denies chest pain, Denies decreased exercise tolerance, Denies edema, Denies high blood pressure, Denies irregular heart beat, Denies palpitations, Denies paroxysmal nocturnal dyspnea, Denies rapid heart beat, Denies shortness of breath Respiratory: Denies congestion, Denies cough, Denies cough with sputum, Denies dyspnea, Denies home oxygen, Denies wheezing Gastrointestinal: Denies abdominal pain, Denies change in bowel habits, Denies coffee ground emesis, Denies heartburn, Denies hematemesis, Denies hematochezia, Denies loss of appetite, Denies nausea, Denies vomiting Genitourinary: Denies dysuria, Denies flank pain, Denies kidney stones, Denies menorrhagia, Denies urgency, Denies urinary frequency Musculoskeletal: Denies gait dysfunction, Denies limitation of motion, Denies morning stiffness, Denies muscle cramps endorses contracture, swelling involving right upper extremity Integumentary: Denies rash, Denies wounds, Denies brittle nails, Denies change in hair/nails, Denies darkening of skin Neurological: Denies balance difficulties, no change in speech, Denies double vision, Denies gait dysfunction, Denies loss of vision, Denies motor disturbance, Denies numbness, Denies paralysis, induces tingling involving the dorsal aspect of foot Denies seizures Psychiatric: Denies anxiety, Denies depression mild PTSD Endocrine: Denies excessive sweating, Denies excessive thirst, Denies high blood sugars, Denies palpitations Hematologic/Lymphatic: Denies easy bruising, Denies lymphadenopathy Physical exam - Constitutional General appearance: Alert and oriented 3 cooperative, no acute distress, obese - EENT Eyes: anicteric sclerae, PERRLA, normal appearance ENT: hearing grossly normal - Neck Neck: no lymphadenopathy, normal ROM, no other, no rigidity, no stridor, no thyromegaly - Respiratory Respiratory: bilateral: CTA, negative: diminished, dullness, rales, rhonchi - Cardiovascular Rhythm: regular Heart sounds: normal: S1, S2 Abnormal Heart Sounds: no systolic murmur, no diastolic murmur, no rub, no S3 Gallop, no S4 Gallop, no click, no other - Gastrointestinal General gastrointestinal: normal bowel sounds, soft nontender - Integumentary Integumentary: Significant bruising and ecchymosis involving right upper extremity involving the hand, forearm and arm with significant swelling. Pa mac has no movement of the right arm. - Neurologic Neurologic: 0/5 on flexion/extension /internal rotation and external rotation involving right upper extremity, lack of sensation involving the right forearm. Sensation intact in the upper arm. tingling and numbness involving the dorsal aspect of both feet - Musculoskeletal Musculoskeletal: gait not assessed, , right upper extremity with no active movement, hand in flexion with diffuse swelling involving the digits, wrist, forearm and upper arm and axilla. Nontender to touch peripheral pulses are diminished involving the right upper extremity. No mobility involving shoulder, elbow or wrist or fingers. Lack of sensation involving the right upper extremity. Passive shoulder movement present with no significant pain. No significant pain involving forearm or hand. capillary refill close to 2 seconds. Peripheral pulses are diminished compared to the other extremity. - Psychiatric Psychiatric: A&O x's 3, appropriate affect Assessment and plan Right forearm compartment syndrome -Status post dorsal and volar fasciotomies with Dr. Paez, 03/21. Vascular surgery Dr. Gerardo is not planning any further intervention. -Status post debridement and irrigation on 03/23 - Repeat I&D scheduled for 03/26 Acute rhabdomyolysis secondary to injury - Continue IV fluids at 70 mL per hour -Repeat CK tomorrow -Status post bicarb drip Hypo-calcemia -Status post calcium gluconate, calcium carbonate 500 3 times a day - Distal nondisplaced right clavicle fracture Acute COVID19 infection - Continue isolation Acute metabolic encephalopathy secondary to sepsis and acute kidney injury, rhabdomyolysis, Dilaudid Consult with neurology appreciated and signed off Stroke is not suspected Vitamin B12 1000 g daily added by neurology Hyperkalemia secondary to Rhabdomyolysis - Consult nephrology appreciated Acute lactic acidosis secondary to hypovolemia - Status post IV fluid bolus - Continue IV fluids at 70 mL/h. Acute kidney injury secondary to rhabdomyolysis secondary to ATN - Continue IV fluids with normal saline at 70 mL per hour - Baseline creatinine 0.8 -Avoid nephrotoxic agent -Hold metformin -Consult nephrology appreciated - May need dialysis next 24 Acute transaminitis - Liver enzymes have worsened since last admission -Continue perfusion with IV fluids Type II uncontrolled diabetes - Last A1c 7.2 - Hold metformin - Continue insulin sliding Scale and Lantus at 5 units at at bedtime History of UTI, acute ESBL E. coli UTI - Merrem. History of Sepsis secondary to acute urinary tract infection In October 2020 - Unclear if patient fall was a result of confusion. Infectious metabolic encephalopathy - resolved - CT head and neck suggestive of hyperdense involving right carotid. We will evaluate with CT angiogram head and neck.. Also mentioned normal pressure hydrocephalus on the CAT scan though MRI was negative for hydrocephalus in October Frequent falls possibly related to worsening Parkinson's, exacerbated by sepsis. - Does PT as outpatient. We'll evaluate for rehab once patient is stab leDiabetic polyneuropathy. - Lyrica 150 mg twice daily Parkinson's. -Continue Sinemet 251 101-1/2 3 times daily. Hypothyroidism. -Continue levothyroxine 150 mcg daily. Guillain-[place] syndrome in 2007. Benign prostatic hypertrophy. -Continue Flomax or 0.4 mg daily. GI prophylaxis. Protonix. DVT prophylaxis. Heparin subcu. DISCHARGE PLAN Home, to be determined. PT and OT consults. Impression and plan of care have been directed as dictated by the signing physician. Sophie Hitchcock nurse practitioner acting as scribe for signing physician. Objective - Vital Signs Vital signs: Vital Signs Temp 98.6 F 03/26/21 08:00 Pulse 76 03/26/21 10:00 Resp 9 L 03/26/21 10:00 BP 121/65 03/26/21 10:00 Pulse Ox 94 L 03/26/21 10:00 Intake & Output 03/25/21 03/26/21 03/26/21 18:59 06:59 18:59 Intake Total 2500 1800 700 Output Total 1490 1470 310 Balance 1010 330 390 Weight 127 kg Intake: IV 1800 1800 600 Sodium Chloride 0.9% 1, 1800 1800 600 000 ml @ 150 mls/hr IV . [id number] [facility] Rx#:[id number] Oral 700 100 Output: Drainage 1000 950 Right Arm 1000 950 Urine 490 520 310 Other: Voiding Method Indwelling Catheter Indwelling Catheter Indwelling Catheter # Bowel Movements 1 ABP, PAP, CO, CI - Last Documented Arterial Blood Pressure 114/75 - Labs CBC & Chem 7: 03/25/21 05:28 03/26/21 06:11 Labs: Abnormal Lab Results - Last 24 Hours (Table) 03/25/21 03/25/21 03/25/21 Range/Units 09:22 11:26 18:02 Sodium (137-145) mmol/L Chloride (98-107) mmol/L Carbon Dioxide (22-30) mmol/L BUN (9-20) mg/dL Creatinine (0.66-1.25) mg/dL POC Glucose (mg/dL) 145 H 110 H (75-99) mg/dL Calcium (8.4-10.2) mg/dL AST (17-59) U/L Creatine Kinase 67086 H* (55-170) U/L Total Protein (6.3-8.2) g/dL Albumin (3.5-5.0) g/dL 03/25/21 03/26/21 03/26/21 Range/Units 20:41 06:11 06:36 Sodium 134 L (137-145) mmol/L Chloride 108 H (98-107) mmol/L Carbon Dioxide 20 L (22-30) mmol/L BUN 57 H (9-20) mg/dL Creatinine 4.64 H (0.66-1.25) mg/dL POC Glucose (mg/dL) 160 H 106 H (75-99) mg/dL Calcium 7.0 L (8.4-10.2) mg/dL AST 873 H (17-59) U/L Creatine Kinase (55-170) U/L Total Protein 4.3 L (6.3-8.2) g/dL Albumin 2.0 L (3.5-5.0) g/dL Microbiology - Last 24 Hours (Table) 03/23/21 04:45 Blood Culture - Preliminary Blood No Growth after 72 hours 03/22/21 03:36 Urine Culture - Final Urine,Voided Escherichia coli Escherichia coli#2 03/21/21 18:34 Blood Culture - Preliminary Blood No Growth after 96 hours 03/21/21 18:34 Blood Culture - Preliminary Blood No Growth after 96 hours 03/25/21 00:10 Urine Culture - Preliminary Urine,Voided
--- NOTE | 2021-03-26 12:03 | P.PN ---
Subjective Progress Note Date: 03/26/21 Principal diagnosis: Acute compartment syndrome of right forearm, status post fasciotomy, and acute rhabdomyolysis, COVID-19 infection This is a 70-year-old white male with history of Parkinson's disease, diabetes and diabetic neuropathy, hypothyroidism, chronic back pain, patient apparently fell, and he was found pinned in between his bed and the nightstand. Patient apparently was rolling in bed when he fell and he got stuck. And apparently he was stuck for 2 days has not taken any of his medication. He was unable to reach anyone. Neighbors came in to check on him, and he was noted to be stuck in between the bed and the nightstand, unable to move, patient was released by the neighbor, and brought into the hospital. Upon arrival to the hospital, patient was found to have a thickened swelling bruising ecchymosis of the right forearm and right hand. Seen by orthopedics on consultation, and he was diagnosed as having acute compartment syndrome involving the forearm and right hand. Patient underwent fasciotomy of the right arm shortly after he was seen in the emergency room, and this was done on 03/21/2021. The surgery was done by Dr. Paez, apparently patient had right forearm fasciotomies of 3 compartments volar, dorsal, and mobile wad. He should also had application of wound VAC with negative pressure and wound dressing to forearm fasciotomy wounds. Patient was seen by internal medicine on consultation, and today he was noted to have hyperkalemia, hypotension, worsening renal failure, acute kidney injury, worsening CPK, and clearly the patient is developing a picture of acute rhabdomyolysis and acute renal failure. Hence arrangements were made to transfer the patient to the ICU. And nephrology was consulted. I was notified about this patient shortly after he arrived to the ICU, he had no adequate venous access, apparently multiple nurses attempted to establish a peripheral IV access and the patient, and attempts were unsuccessful. Then I came in and evaluated the patient. I was able to establish a right femoral triple-lumen catheter, and a left brachial arterial line. And I recommended more fluids to be given, recommended more bicarb to be given, I also recommended close monitoring of his urine output, as well as his electrolytes, and recommended an ABG which is pending during my evaluation. Patient was noted to have WBC count of 12, hemoglobin of 15.8, potassium was 6.5, and his potassium was 5.1 yesterday. Bicarb came down from 21-10 over the last 24 hours, BUN up from 18- 31, creatinine up from 1.39-2.65 today, CPK went up from 45,000-60,000 today. Clearly the patient is developing a picture of acute rhabdomyolysis, and acute kidney injury. Nephrology is already on the case today, and recommended sodium bicarb drip, more fluids, and the patient is on antibiotics in the form of cefazolin. Reevaluated today on 03/23/21, patient remains in the ICU, I saw this patient last night on consultation. Patient is resting in bed, he is mostly on 4 L nasal cannula. Hemodynamically stable, not requiring any pressors. CPK is down to 50,000. Alkaline phosphatase is a 67, C-reactive protein is 16.8. ABG last night showed a pO2 of 92 pCO2 of 38 pH of 7.42. Patient is now off bicarb. Remains on IV fluid in the form of 0.9 normal saline at 150 mL per hour. His urine output seems to be picking up nicely, renal functioning is a bit worse today. But I expect that will improve with more fluids and decent urine output. Patient was seen by nephrology on consultation, no plans for hemodialysis at least at this point yet. Pulmonary-tony the patient denies any shortness of breath, he is on 4 L nasal cannula with O2 saturation in the high 90s. His chest x-ray showed mostly minimal atelectasis especially at the bases. Hence patient was advised to do more work of breathing and deep cough, and more incentive spirometer. Reevaluated today on 03/24/21, patient remains in the ICU, went back to surgery yesterday, and he had a wound VAC change. Patient is hemodynamically stable, not in any distress, on 2 L nasal cannula with O2 sat from 98%. Patient is not requiring any pressors, blood pressure is 133/94. Temp is 98. WBC count is 6.4 hemoglobin is 11.1. Electrolytes are normal however his BUN is 47 creatinine 4.31. CPK is down to 39,000. Renal functioning is a bit worse, being closely followed by nephrology, he is making marginal urine output anywhere between 20- 30 mL/h, no need for hemodialysis at this point. Reevaluated today on 03/25/21, patient is doing fairly well, he is relatively asymptomatic, remains on IV fluids, remains on antibiotics. Good urine output,, renal functioning is a bit worse with a BUN of 50 creatinine 4.89. WBC count is 4.5 hemoglobin is 10.8. Patient is on room air with O2 saturation of 92%, he is hemodynamically stable, not requiring any pressors. Patient is scheduled to undergo more surgery on his forearms tomorrow, and may be closure of his fasciotomy. This will be attempted tomorrow. Patient had acute kidney injury and hyperkalemia, his urine output was about 1.4 L in the last 24 hours. Patient seems to have nonoliguric acute kidney injury secondary to acute tubular necrosis from rhabdomyolysis and possibly CT with contrast. On 03/26/2021 patient seen in follow-up in intensive care unit, he is awake and alert, in no acute distress, breathing comfortably, he is currently on room air with a pulse ox of 94%, hemodynamically stable, he remains on IV fluids with point and was seen at a rate of 150 ML per hour, no other drips, no vasopressors , she has been afebrile, hemodynamically has been stable, he is currently in sinus mechanism with a rate of 76 BPM. His last chest x-ray from 03/23/2021 showed chronic changes and cardiomegaly with the medial left lower lung atelectasis. From pulmonary perspective he has remained very stable. Patient is status post I&D, and fissurectomy of the right arm on 03/23/2021. Today's labs have been reviewed, his sodium is 134, potassium is 4.0, chloride is 108, CO2 is 20, BUN is 57, creatinine is 4.64, AST is 873, ALT and alk phos were within normal limits, his last CK was 38,434, improving, urinalysis showed evidence of urinary tract infection, and patient remains on meropenem for antibiotic coverage, urine culture showed ESBL E-Coli and a regular E-coli. Patient is receiving pain medications for his right arm. His pain is reasonably controlled. Patient has decreased mobility of his right upper extremity and patient does have slight sensation. He is being closely followed by orthopedic surgery and the plan is to the patient to go back to the operating room for repeat irrigation and debridement and wound VAC change of the right arm today by Dr. Paez Objective - Vital Signs Vital signs: Vital Signs Temp 98.6 F 03/26/21 08:00 Pulse 76 03/26/21 10:00 Resp 9 L 03/26/21 10:00 BP 121/65 03/26/21 10:00 Pulse Ox 94 L 03/26/21 10:00 Intake & Output 03/25/21 03/26/21 03/26/21 18:59 06:59 18:59 Intake Total 2500 1800 700 Output Total 1490 1470 310 Balance 1010 330 390 Weight 127 kg Intake: IV 1800 1800 600 Sodium Chloride 0.9% 1, 1800 1800 600 000 ml @ 150 mls/hr IV . Q6H40M [facility] Rx#:[id number] Oral 700 100 Output: Drainage 1000 950 Right Arm 1000 950 Urine 490 520 310 Other: Voiding Method Indwelling Catheter Indwelling Catheter Indwelling Catheter # Bowel Movements 1 ABP, PAP, CO, CI - Last Documented Arterial Blood Pressure 114/75 - Exam GENERAL EXAM: Alert, very pleasant, 70-year-old white male, on room air, resting comfortably in bed satting 94% on room air, breathing comfortably, patient is awake and alert oriented 3 comfortable in no apparent distress. HEAD: Normocephalic/atraumatic. EYES: Normal reaction of pupils, equal size. Conjunctiva pink, sclera white. NOSE: Clear with pink turbinates. THROAT: No erythema or exudates. NECK: No masses, no JVD, no thyroid enlargement, no adenopathy. CHEST: No chest wall deformity. Symmetrical expansion. LUNGS: Equal air entry with no crackles, wheeze, rhonchi or dullness. CVS: Regular rate and rhythm, normal S1 and S2, no gallops, no murmurs, no rubs ABDOMEN: Soft, nontender. No hepatosplenomegaly, normal bowel sounds, no guarding or rigidity. EXTREMITIES: No clubbing, no edema, no cyanosis, 2+ pulses and upper and lower extremities. Right upper arm has a surgical dressing, and wound VAC in place, patient is status post right arm fasciotomy for compartment syndrome MUSCULOSKELETAL: Muscle strength and tone normal. SPINE: No scoliosis or deformity SKIN: No rashes. CENTRAL NERVOUS SYSTEM: Alert and oriented -3. No focal deficits, tone is normal in all 4 extremities. PSYCHIATRIC: Alert and oriented -3. Appropriate affect. Intact judgment and insight. - Labs CBC & Chem 7: 03/25/21 05:28 03/26/21 06:11 Labs: Abnormal Lab Results - Last 24 Hours (Table) 03/25/21 03/25/21 03/25/21 Range/Units 09:22 18:02 20:41 Sodium (137-145) mmol/L Chloride (98-107) mmol/L Carbon Dioxide (22-30) mmol/L BUN (9-20) mg/dL Creatinine (0.66-1.25) mg/dL POC Glucose (mg/dL) 110 H 160 H (75-99) mg/dL Calcium (8.4-10.2) mg/dL AST (17-59) U/L Creatine Kinase 60903 H* (55-170) U/L Total Protein (6.3-8.2) g/dL Albumin (3.5-5.0) g/dL 03/26/21 03/26/21 03/26/21 Range/Units 06:11 06:36 11:44 Sodium 134 L (137-145) mmol/L Chloride 108 H (98-107) mmol/L Carbon Dioxide 20 L (22-30) mmol/L BUN 57 H (9-20) mg/dL Creatinine 4.64 H (0.66-1.25) mg/dL POC Glucose (mg/dL) 106 H 116 H (75-99) mg/dL Calcium 7.0 L (8.4-10.2) mg/dL AST 873 H (17-59) U/L Creatine Kinase (55-170) U/L Total Protein 4.3 L (6.3-8.2) g/dL Albumin 2.0 L (3.5-5.0) g/dL Microbiology - Last 24 Hours (Table) 03/23/21 04:45 Blood Culture - Preliminary Blood No Growth after 72 hours 03/22/21 03:36 Urine Culture - Final Urine,Voided Escherichia coli Escherichia coli#2 03/21/21 18:34 Blood Culture - Preliminary Blood No Growth after 96 hours 03/21/21 18:34 Blood Culture - Preliminary Blood No Growth after 96 hours 03/25/21 00:10 Urine Culture - Preliminary Urine,Voided Assessment and Plan Plan: Assessment: #1. Acute rhabdomyolysis secondary to forearm injury and compartment syndrome status post patient adamant, postoperative day #5, status post wound VAC change, postoperative day #3. Today on the 03/26/2021 patient is awake and alert, no respiratory distress, vital signs are stable, total CK levels are improving, remains on IV fluids, no vasopressor support. The plan is for the patient to return to or today on 03/26/2021 for repeat right arm washout, and reapplication of the wound VAC dressing #2. Acute kidney injury secondary to rhabdomyolysis, remains on IV fluids, nephrology is following, today's creatinine is 4.64, slightly improved compared to yesterday #3. ESBL E. coli urinary tract infection, currently on meropenem #4. Acute COVID-19 infection without evidence of pneumonia on the chest x-ray. he is maintaining stable O2 saturations on room air #5. Acute lactic acidosis secondary to poor tissue perfusion of the right upper extremity and acute kidney injury, improving with IV fluid hydration #6. Acute hyperkalemia secondary to worsening metabolic acidosis and worsening renal failure, resolved #7. History 2 diabetes mellitus #8. History of Parkinson's disease #9. History of chronic and recurrent urinary tract infections #10. History of diabetic neuropathy #11. History of Guillain-Hoffman syndrome in 2007 Plan: Continue present supportive care measures Patient denies any trouble breathing, remains on room air Hemodynamically has remained stable, not requiring any vasopressor support Continue meropenem for ESBL urinary tract infection Continue IV fluids 150 ML per hour Today's labs reviewed We'll continue to monitor closely his labs including electrolytes, renal profile His last CPK level is improving His lactic acid is improving Continue to closely follow in the intensive care unit Patient is returning to the operating room for right arm wound washout and reapplication of a wound VAC We'll follow him in the postoperative period Follow-up chest x-ray, CBC, CMP for tomorrow Follow-up CPK level We'll continue to follow I performed a history & physical examination of the patient and discussed their management with my nurse practitioner, Lilian Chance. I reviewed the nurse practitioner's note and agree with the documented findings and plan of care. Lung sounds are positive for dim breath sounds throughout the lung pollard. The findings and the impression was discussed with the patient. I attest to the documentation by the nurse practitioner. Time with Patient: Greater than 30
[2021-03-26] MEDS ORDERED: fentaNYL (PF) 50 MCG/ML 2 ML AMP ONE (13:26)
[2021-03-26] MEDS ORDERED: GLYCOPYRROLATE 0.2 MG/ML 2 ML VIAL ONE (13:26)
[2021-03-26] MEDS ORDERED: ePHEDrine 50 MG/ML 1 ML AMP ONE (13:26)
[2021-03-26] MEDS ORDERED: NEOSTIGMINE 1 MG/ML 10 ML VIAL ONE (13:26)
[2021-03-26] MEDS ORDERED: ONDANSETRON 4 MG/2 ML VIAL ONE (13:26)
[2021-03-26] MEDS ORDERED: PROPOFOL 10 MG/ML 20 ML VIAL IV ONE (13:26)
[2021-03-26] MEDS ORDERED: ROCURONIUM 10 MG/ML (5 ML VIAL) IV ONE (13:26)
[2021-03-26] MEDS ORDERED: PHENYLEPHRINE-0.9% NACL SYG 1,000 MCG/10 ML SYRINGE ONE (13:26)
[2021-03-26] MEDS ORDERED: SODIUM CHLORIDE 0.9% 1,000 ML IV ONE ×2 (13:32→14:07)
[2021-03-26 17:30] LABS: Glucose,Whole Blood 121 mg/dL (75-99)
[2021-03-26 19:46] LABS: Hepatitis B Surface AB- Quant 3.5 mIU/mL; Hepatitis B Surface Antibody Nonreactive (Nonreactive)
[2021-03-26 20:07] LABS: Hepatitis B Surface Antigen Nonreactive (Nonreactive)
--- NOTE | 2021-03-26 21:28 | P.PN ---
Subjective Progress Note Date: 03/26/21 Principal diagnosis: Right forearm compartment syndrome , covid 19 infection Patient is a 70-year-old male who was brought into the hospital after the patient was started between bed and nightstand for 2 days noticed to have compartment syndrome right forearm status post fasciotomy 3, patient was transferred to the ICU last night because of worsening hypotension. Patient was taken back to the OR 03/23/2021 and is status post debridement of devitalized tissue and reapplication of the wound VAC On today's evaluation, and that is 03/26/2021 the patient denies any fever or any chills, the patient is hemodynamically stable not any pressor support, the patient is breathing comfortably currently on room air, patient denies any worsening pain the right forearm, patient denies having any chest pain shortness of breath , no significant cough , the patient denies nausea no vomiting no abdominal pain and no diarrhea Objective - Vital Signs Vital signs: Vital Signs Temp 99.3 F 03/26/21 20:00 Pulse 75 03/26/21 20:00 Resp 13 03/26/21 20:00 BP 110/69 03/26/21 20:00 Pulse Ox 95 03/26/21 20:00 Intake & Output 03/26/21 03/26/21 03/27/21 06:59 18:59 06:59 Intake Total 1800 2255 195 Output Total 1470 1295 245 Balance 330 960 -50 Weight 127 kg Intake: IV 1800 1675 75 Sodium Chloride 0.9% 1, 1800 1275 000 ml @ 150 mls/hr IV . Q6H40M [facility] Rx#:[id number] Sodium Chloride 0.9% 1, 75 000 ml @ 75 mls/hr IV . [id number] [facility] Rx#:[id number] Oral 580 120 Output: Drainage 950 500 100 Right Arm 950 500 100 Urine 520 785 145 Estimated Blood Loss 10 Other: Voiding Method Indwelling Catheter Indwelling Catheter Indwelling Catheter ABP, PAP, CO, CI - Last Documented Arterial Blood Pressure 114/75 - Exam GENERAL DESCRIPTION:[ Patient is awake and alert in no distress] HEENT: [Oral mucosa is dry and no pharyngeal erythema] EYES : [No pallor or scleral icterus] RESPIRATORY SYSTEM: [Unlabored breathing decreased breath sounds at the base] CARDIA VASCULAR SYSTEM: [S1-S2 regular rate and rhythm no murmur] GI: [Abdominal soft there's no tenderness no organomegaly] EXTREMITIES: [Right forearm currently covered with a wound VAC there's no significant swelling no redness] - Labs CBC & Chem 7: 03/25/21 05:28 03/26/21 06:11 Labs: Abnormal Lab Results - Last 24 Hours (Table) 03/26/21 03/26/21 03/26/21 Range/Units 06:11 06:36 11:44 Sodium 134 L (137-145) mmol/L Chloride 108 H (98-107) mmol/L Carbon Dioxide 20 L (22-30) mmol/L BUN 57 H (9-20) mg/dL Creatinine 4.64 H (0.66-1.25) mg/dL POC Glucose (mg/dL) 106 H 116 H (75-99) mg/dL Calcium 7.0 L (8.4-10.2) mg/dL AST 873 H (17-59) U/L Total Protein 4.3 L (6.3-8.2) g/dL Albumin 2.0 L (3.5-5.0) g/dL 03/26/21 Range/Units 17:28 Sodium (137-145) mmol/L Chloride (98-107) mmol/L Carbon Dioxide (22-30) mmol/L BUN (9-20) mg/dL Creatinine (0.66-1.25) mg/dL POC Glucose (mg/dL) 121 H (75-99) mg/dL Calcium (8.4-10.2) mg/dL AST (17-59) U/L Total Protein (6.3-8.2) g/dL Albumin (3.5-5.0) g/dL Microbiology - Last 24 Hours (Table) 03/25/21 00:10 Urine Culture - Final Urine,Voided 03/23/21 04:45 Blood Culture - Preliminary Blood No Growth after 72 hours 03/22/21 03:36 Urine Culture - Final Urine,Voided Escherichia coli Escherichia coli#2 03/21/21 18:34 Blood Culture - Preliminary Blood No Growth after 96 hours 03/21/21 18:34 Blood Culture - Preliminary Blood No Growth after 96 hours Assessment and Plan (1) Compartment syndrome of forearm Current Visit: Yes Status: Acute Priority: High Onset Date: ~03/21/21 Code(s): T79.A19A - TRAUMATIC COMPARTMENT SYNDROME OF UNSP UPPER EXTREMITY, INIT SNOMED Code(s): 285388384 (2) COVID-19 Current Visit: Yes Status: Acute Code(s): U07.1 - COVID-19 SNOMED Code(s): 313170015 Plan: Patient with right forearm compartment syndrome traumatic in this patient with status post fasciotomy and wound VAC application 2, patient is afebrile and his white count is normalized, blood culture has been negative so far 2-patient did have a positive covid test, no significant respiratory symptoms and the patient is currently on room air, patient to continue with current supportive treatment 3-positive urine culture with ESBL E. coli repeat urinalysis is still positive, patient is currently covered with Invanz while waiting for repeat urine cultures to finalize Time with Patient: Less than 30
[2021-03-26 21:44] LABS: Glucose,Whole Blood 173 mg/dL (75-99)
[2021-03-26] MEDS: INSULIN DETEMIR (LEVEMIR) 100 UNIT/ML SYR SQ SCH (21:57)
[2021-03-27] MEDS: MEROPENEM 1 GM in SODIUM CHLORIDE 0.9% 100 ML IVPB SCH ×2 (06:06→17:37)
[2021-03-27] MEDS: LEVOTHYROXINE 75 MCG TAB PO SCH (06:06)
[2021-03-27] MEDS: SODIUM CHLORIDE 0.9% 1,000 ML IV SCH (06:06)
[2021-03-27 06:46] LABS: Albumin 1.9 g/dL (3.5-5.0); Calcium 7.4 mg/dL (8.4-10.2); Potassium 3.6 mmol/L (3.5-5.1); Total Bilirubin 0.7 mg/dL (0.2-1.3)
[2021-03-27 06:47] LABS: Glucose,Whole Blood 187 mg/dL (75-99)
[2021-03-27] MEDS: INSULIN ASPART (NovoLOG) 100 UNIT/ML VIAL SQ SCH ×4 (06:56→21:08)
--- NOTE | 2021-03-27 08:16 | XR ---
EXAMINATION TYPE: XR chest 1V portable DATE OF EXAM: 03/27/2021 HISTORY: Shortness of breath. COMPARISON: 03/23/2021 TECHNIQUE: Single view of the chest is submitted. FINDINGS: Demonstrated are scattered senescent parenchymal change. Patchy basilar atelectasis and or infiltrates persist unchanged. The heart is stable. Hilar and mediastinal structures are within normal limits. Degenerative changes are seen of the dorsal spine. IMPRESSION: 1. Patchy basilar atelectasis and or infiltrates persist unchanged.
--- NOTE | 2021-03-27 08:25 | P.OP ---
Date of Procedure: 03/26/21 Procedure(s) Performed: PREOPERATIVE DIAGNOSES: 1. Right forearm compartment syndrome status post compartment fasciotomies POSTOPERATIVE DIAGNOSES: 1. Right forearm compartment syndrome status post compartment fasciotomies PROCEDURES PERFORMED: 1. Right forearm 3 compartment irrigation of wound (no sharp debridement indicated) 2. Application of wound VAC (negative pressure wound dressing) to forearm fasciotomy wounds 3. Low tension elastic retention band placement for volar and dorsal wounds ANESTHESIA: Gen. LEAD POURER: Sarahi Pena PA-C (assistance with exposure, hemostasis, retraction, fixation, closure, dressing, splint) COMPLICATIONS: None ESTIMATED BLOOD LOSS: 10 mL. DISPOSITION: To post-anesthesia care unit INDICATIONS: Nilay is a 70-year-old male who previously had forearm compartment fasciotomies performed Friday who returns today for repeat debridement irrigation and possible closure of fasciotomies. His status is guarded as he has increased creatinine due to rhabdomyolysis but has maintained what appears to be adequate blood supply to the hand with palpable and dopplerable radial pulses. He is currently in the ICU. I described the steps of the operation and potential risks and complications as being inclusive of, but not limited to: Bleeding, infection, scarring, discomfort, blood vessel and/or nerve damage, need for skin grafting, persistent pain, ischemic contracture, stiffness of elbow wrist and/or fingers, weakness, permanent nerve damage, , loss of limb, and other risks. The patient is aware of these risks and wishes to proceed with surgery. The consent form has been signed. PROCEDURE: After appropriate consent was obtained, the patient was taken to the operating room placed in the supine position. General anesthesia was initiated, and after confirmation of adequate anesthesia, the patient was carefully positioned. Care was taken to make sure that all pressure points were adequately padded. Prepping and draping were completed in the usual aseptic fashion using ChloraPrep. Timeout was called, confirming patient identity, side, procedure, and administration of antibiotics. No tourniquet was used. Wounds were visually inspected, and no devitalized tissue was seen. Muscle was normal in appearance, contractility, and bleeding. Intraoperative Doppler was performed on both the brachial artery and the radial artery both were found to be normal and both pulses were palpable. Thorough irrigation of the wound on both sides was performed using pulsatile lavage. Both wounds at this point did appear to have the potential to favorably respond to wound retension with elastic. 2 silicone vessel loops were used, one on each side, under low tension and applied to the skin edges using nicoel. This decreased the wound size considerably on both sides, without creating undue pressure in the compartments or placing undue tension across the skin. Both wounds were then thoroughly irrigated as above with normal saline and hemostasis was obtained using electrocautery. A large wound VAC was applied to both the dorsal and volar wounds with a bridge sponge between. Adequate seal was confirmed. Radial pulse 1+ at the conclusion of the case. Fingers were pink with capillary refill approximately 2 seconds. Patient tolerated the procedure well and taken to recovery room in stable condition.
[2021-03-27] MEDS ORDERED: Potassium Replacement Protocol 1 EACH MISC MISCELLANE PRN (08:40)
[2021-03-27] MEDS: ASCORBIC ACID 500 MG TAB PO SCH (08:59)
[2021-03-27] MEDS: CARBIDOPA-LEVODOPA 25-100 MG 1 EACH TAB PO SCH ×3 (09:00→21:36)
[2021-03-27] MEDS: PREGABALIN 75 MG CAP PO SCH ×3 (09:00→20:15)
[2021-03-27] MEDS ORDERED: POTASSIUM CHLORIDE ER 20 MEQ TAB.ER PO SCH (09:00)
[2021-03-27] MEDS: CYANOCOBALAMIN 500 MCG TAB PO SCH (09:01)
[2021-03-27] MEDS: TAMSULOSIN 0.4 MG CAP.ER.24H PO SCH (09:02)
[2021-03-27] MEDS: ZINC SULFATE 220 MG CAP PO SCH (09:02)
[2021-03-27] MEDS: MULTIVITAMINS, THERA 1 EACH TAB PO SCH (09:02)
[2021-03-27] MEDS: CALCIUM CARBONATE 500 MG CHEWABLE PO SCH ×3 (09:03→20:15)
[2021-03-27] MEDS: HEPARIN SODIUM,PORCINE/PF 5,000 UNIT/0.5 ML SYRINGE SQ SCH ×2 (09:03→20:15)
--- NOTE | 2021-03-27 10:32 | P.PN ---
Subjective Progress Note Date: 03/27/21 Principal diagnosis: Acute compartment syndrome of right forearm, status post fasciotomy, and acute rhabdomyolysis, COVID-19 infection This is a 70-year-old white male with history of Parkinson's disease, diabetes and diabetic neuropathy, hypothyroidism, chronic back pain, patient apparently fell, and he was found pinned in between his bed and the nightstand. Patient apparently was rolling in bed when he fell and he got stuck. And apparently he was stuck for 2 days has not taken any of his medication. He was unable to reach anyone. Neighbors came in to check on him, and he was noted to be stuck in between the bed and the nightstand, unable to move, patient was released by the neighbor, and brought into the hospital. Upon arrival to the hospital, patient was found to have a thickened swelling bruising ecchymosis of the right forearm and right hand. Seen by orthopedics on consultation, and he was diagnosed as having acute compartment syndrome involving the forearm and right hand. Patient underwent fasciotomy of the right arm shortly after he was seen in the emergency room, and this was done on 03/21/2021. The surgery was done by Dr. Paez, apparently patient had right forearm fasciotomies of 3 compartments volar, dorsal, and mobile wad. He should also had application of wound VAC with negative pressure and wound dressing to forearm fasciotomy wounds. Patient was seen by internal medicine on consultation, and today he was noted to have hyperkalemia, hypotension, worsening renal failure, acute kidney injury, worsening CPK, and clearly the patient is developing a picture of acute rhabdomyolysis and acute renal failure. Hence arrangements were made to transfer the patient to the ICU. And nephrology was consulted. I was notified about this patient shortly after he arrived to the ICU, he had no adequate venous access, apparently multiple nurses attempted to establish a peripheral IV access and the patient, and attempts were unsuccessful. Then I came in and evaluated the patient. I was able to establish a right femoral triple-lumen catheter, and a left brachial arterial line. And I recommended more fluids to be given, recommended more bicarb to be given, I also recommended close monitoring of his urine output, as well as his electrolytes, and recommended an ABG which is pending during my evaluation. Patient was noted to have WBC count of 12, hemoglobin of 15.8, potassium was 6.5, and his potassium was 5.1 yesterday. Bicarb came down from 21-10 over the last 24 hours, BUN up from 18- 31, creatinine up from 1.39-2.65 today, CPK went up from 45,000-60,000 today. Clearly the patient is developing a picture of acute rhabdomyolysis, and acute kidney injury. Nephrology is already on the case today, and recommended sodium bicarb drip, more fluids, and the patient is on antibiotics in the form of cefazolin. Reevaluated today on 03/23/21, patient remains in the ICU, I saw this patient last night on consultation. Patient is resting in bed, he is mostly on 4 L nasal cannula. Hemodynamically stable, not requiring any pressors. CPK is down to 50,000. Alkaline phosphatase is a 67, C-reactive protein is 16.8. ABG last night showed a pO2 of 92 pCO2 of 38 pH of 7.42. Patient is now off bicarb. Remains on IV fluid in the form of 0.9 normal saline at 150 mL per hour. His urine output seems to be picking up nicely, renal functioning is a bit worse today. But I expect that will improve with more fluids and decent urine output. Patient was seen by nephrology on consultation, no plans for hemodialysis at least at this point yet. Pulmonary-tony the patient denies any shortness of breath, he is on 4 L nasal cannula with O2 saturation in the high 90s. His chest x-ray showed mostly minimal atelectasis especially at the bases. Hence patient was advised to do more work of breathing and deep cough, and more incentive spirometer. Reevaluated today on 03/24/21, patient remains in the ICU, went back to surgery yesterday, and he had a wound VAC change. Patient is hemodynamically stable, not in any distress, on 2 L nasal cannula with O2 sat from 98%. Patient is not requiring any pressors, blood pressure is 133/94. Temp is 98. WBC count is 6.4 hemoglobin is 11.1. Electrolytes are normal however his BUN is 47 creatinine 4.31. CPK is down to 39,000. Renal functioning is a bit worse, being closely followed by nephrology, he is making marginal urine output anywhere between 20- 30 mL/h, no need for hemodialysis at this point. Reevaluated today on 03/25/21, patient is doing fairly well, he is relatively asymptomatic, remains on IV fluids, remains on antibiotics. Good urine output,, renal functioning is a bit worse with a BUN of 50 creatinine 4.89. WBC count is 4.5 hemoglobin is 10.8. Patient is on room air with O2 saturation of 92%, he is hemodynamically stable, not requiring any pressors. Patient is scheduled to undergo more surgery on his forearms tomorrow, and may be closure of his fasciotomy. This will be attempted tomorrow. Patient had acute kidney injury and hyperkalemia, his urine output was about 1.4 L in the last 24 hours. Patient seems to have nonoliguric acute kidney injury secondary to acute tubular necrosis from rhabdomyolysis and possibly CT with contrast. On 03/26/2021 patient seen in follow-up in intensive care unit, he is awake and alert, in no acute distress, breathing comfortably, he is currently on room air with a pulse ox of 94%, hemodynamically stable, he remains on IV fluids with point and was seen at a rate of 150 ML per hour, no other drips, no vasopressors , she has been afebrile, hemodynamically has been stable, he is currently in sinus mechanism with a rate of 76 BPM. His last chest x-ray from 03/23/2021 showed chronic changes and cardiomegaly with the medial left lower lung atelectasis. From pulmonary perspective he has remained very stable. Patient is status post I&D, and fissurectomy of the right arm on 03/23/2021. Today's labs have been reviewed, his sodium is 134, potassium is 4.0, chloride is 108, CO2 is 20, BUN is 57, creatinine is 4.64, AST is 873, ALT and alk phos were within normal limits, his last CK was 38,434, improving, urinalysis showed evidence of urinary tract infection, and patient remains on meropenem for antibiotic coverage, urine culture showed ESBL E-Coli and a regular E-coli. Patient is receiving pain medications for his right arm. His pain is reasonably controlled. Patient has decreased mobility of his right upper extremity and patient does have slight sensation. He is being closely followed by orthopedic surgery and the plan is to the patient to go back to the operating room for repeat irrigation and debridement and wound VAC change of the right arm today by Dr. Paez On 03/27/2021 patient seen in follow-up in the intensive care unit, he is awake and alert, in no acute distress, resting in bed, breathing comfortably, room air pulse ox is 94%, hemodynamically patient has remained stable, he is not on any vasopressor support, he is on point of saline at a rate of 75 ML per hour, no other drips. Patient is status post right forearm compartment fasciotomy wound INT irrigation without debridement, and replacement of the wound VAC, and placement of the retention sutures with elastic Vesseloops and nicole. Patient tolerated procedure very well yesterday, he returned to his room in the ICU in stable condition, overnight there has been some noted swelling in the area of the right forearm, and surgical services have been notified. Today's labs have been reviewed, his CPK level was improving, today's level is still pending, his CBC has not resulted yet, his sodium was 134, potassium is 3.6, chloride was 108, CO2 is 21 BUN 60, creatinine is 4.47, slightly improved compared to yesterday, and has been improving for the last couple of days. His AST is improving and is down to 697, ALT is 30, and alk phos is 72. Patient remains on meropenem for ESBL E. coli urinary tract infection, ID services are following. Patient is receiving pain medications for pain in his surgical site in the right forearm. His pain is fairly well controlled. he has not had any worsening dyspnea or cough, no completes of chest discomfort. His follow-up chest x-ray yesterday showed patchy basilar atelectasis or infiltrates that were unchanged compared his chest x-ray from 03/23/2021. His urine output is anywhere from 60- 70 ML per hour. Objective - Vital Signs Vital signs: Vital Signs Temp 99.1 F 03/27/21 00:00 Pulse 85 03/27/21 07:00 Resp 24 03/27/21 06:00 BP 127/87 03/27/21 07:00 Pulse Ox 94 L 03/27/21 08:07 Intake & Output 03/26/21 03/27/21 03/27/21 18:59 06:59 18:59 Intake Total 2255 1145 75 Output Total 1295 1835 60 Balance 960 -690 15 Intake: IV 1675 825 75 Sodium Chloride 0.9% 1, 1275 000 ml @ 150 mls/hr IV . Q6H40M [facility] Rx#:[id number] Sodium Chloride 0.9% 1, 825 75 000 ml @ 75 mls/hr IV . [id number] [facility] Rx#:[id number] Oral 580 320 Output: Drainage 500 1000 Right Arm 500 1000 Urine 785 835 60 Estimated Blood Loss 10 Other: Voiding Method Indwelling Catheter Indwelling Catheter ABP, PAP, CO, CI - Last Documented Arterial Blood Pressure 114/75 - Exam GENERAL EXAM: Alert, very pleasant, 70-year-old white male, on room air, resting comfortably in bed satting 94% on room air, breathing comfortably, patient is awake and alert oriented 3 comfortable in no apparent distress. HEAD: Normocephalic/atraumatic. EYES: Normal reaction of pupils, equal size. Conjunctiva pink, sclera white. NOSE: Clear with pink turbinates. THROAT: No erythema or exudates. NECK: No masses, no JVD, no thyroid enlargement, no adenopathy. CHEST: No chest wall deformity. Symmetrical expansion. LUNGS: Equal air entry with no crackles, wheeze, rhonchi or dullness. CVS: Regular rate and rhythm, normal S1 and S2, no gallops, no murmurs, no rubs ABDOMEN: Soft, nontender. No hepatosplenomegaly, normal bowel sounds, no guarding or rigidity. EXTREMITIES: No clubbing, no edema, no cyanosis, 2+ pulses and upper and lower extremities. Right upper arm has a surgical dressing, and wound VAC in place, patient is status post right arm fasciotomy for compartment syndrome MUSCULOSKELETAL: Muscle strength and tone normal. SPINE: No scoliosis or deformity SKIN: No rashes. CENTRAL NERVOUS SYSTEM: Alert and oriented -3. No focal deficits, tone is normal in all 4 extremities. PSYCHIATRIC: Alert and oriented -3. Appropriate affect. Intact judgment and insight. - Labs CBC & Chem 7: 03/25/21 05:28 03/27/21 05:48 Labs: Abnormal Lab Results - Last 24 Hours (Table) 03/26/21 03/26/21 03/26/21 Range/Units 11:44 17:28 21:42 Sodium (137-145) mmol/L Chloride (98-107) mmol/L Carbon Dioxide (22-30) mmol/L BUN (9-20) mg/dL Creatinine (0.66-1.25) mg/dL Glucose (74-99) mg/dL POC Glucose (mg/dL) 116 H 121 H 173 H (75-99) mg/dL Calcium (8.4-10.2) mg/dL AST (17-59) U/L Total Protein (6.3-8.2) g/dL Albumin (3.5-5.0) g/dL 03/27/21 03/27/21 Range/Units 05:48 06:45 Sodium 134 L (137-145) mmol/L Chloride 108 H (98-107) mmol/L Carbon Dioxide 21 L (22-30) mmol/L BUN 60 H (9-20) mg/dL Creatinine 4.47 H (0.66-1.25) mg/dL Glucose 141 H (74-99) mg/dL POC Glucose (mg/dL) 187 H (75-99) mg/dL Calcium 7.4 L (8.4-10.2) mg/dL AST 697 H (17-59) U/L Total Protein 4.0 L (6.3-8.2) g/dL Albumin 1.9 L (3.5-5.0) g/dL Microbiology - Last 24 Hours (Table) 03/23/21 04:45 Blood Culture - Preliminary Blood No Growth after 96 hours 03/21/21 18:34 Blood Culture - Preliminary Blood No Growth after 120 hours 03/21/21 18:34 Blood Culture - Preliminary Blood No Growth after 120 hours 03/25/21 00:10 Urine Culture - Final Urine,Voided 03/22/21 03:36 Urine Culture - Final Urine,Voided Escherichia coli Escherichia coli#2 Assessment and Plan Plan: Assessment: #1. Acute rhabdomyolysis secondary to forearm injury and compartment syndrome status post patient adamant, postoperative day #5, status post wound VAC change, postoperative day #3. Today on the 03/26/2021 patient is awake and alert, no respiratory distress, vital signs are stable, total CK levels are improving, remains on IV fluids, no vasopressor support. The plan is for the patient to return to or today on 03/26/2021 for repeat right arm washout, and reapplication of the wound VAC dressing #2. Acute kidney injury secondary to rhabdomyolysis, remains on IV fluids, nephrology is following, today's creatinine is 4.64, slightly improved compared to yesterday #3. ESBL E. coli urinary tract infection, currently on meropenem #4. Acute COVID-19 infection without evidence of pneumonia on the chest x-ray. he is maintaining stable O2 saturations on room air #5. Acute lactic acidosis secondary to poor tissue perfusion of the right upper extremity and acute kidney injury, improving with IV fluid hydration #6. Acute hyperkalemia secondary to worsening metabolic acidosis and worsening renal failure, resolved #7. History 2 diabetes mellitus #8. History of Parkinson's disease #9. History of chronic and recurrent urinary tract infections #10. History of diabetic neuropathy #11. History of Guillain-Hoffman syndrome in 2007 Plan: Patient is status post I and D of the right arm and washout and reapplication of the wound VAC on a 03/26/2021 Have some swelling at the site of the right forearm, surgical services have been notified Awaiting results of the CBC Hemodynamically has remained stable Not requiring any vasopressor support From pulmonary perspective he has also remained stable, denies any dyspnea, his been on room air Awaiting follow-up CBC and CPK levels Renal profile slightly improved Provide incentive spirometer, and encouraged patient to use incentive spirometer Continue antibiotics for ESBL E. coli urinary tract infection Maintain pain control Increase activity as tolerated May need physical therapy consultation Stable to transfer out of intensive care unit to general medical floor today I performed a history & physical examination of the patient and discussed their management with my nurse practitioner, Lilian Chance. I reviewed the nurse practitioner's note and agree with the documented findings and plan of care. Lung sounds are positive for dim breath sounds throughout the lung pollard. The findings and the impression was discussed with the patient. I attest to the documentation by the nurse practitioner. Time with Patient: Greater than 30
--- NOTE | 2021-03-27 11:08 | P.PN ---
Subjective Progress Note Date: 03/27/21 This is a 70-year-old male who is admitted and being managed for compartment syndrome. Patient is status post irrigation of the right forearm compartment fasciotomy wounds and replacement of the wound vac by Dr. Paez. This is postoperative day #1 and patient is seen and evaluated at bedside today. Nurs ing reported a collection of blood within the wound vac dressing, but states that the wound VAC is functioning normally. Patient reports a shooting pain in the right arm occasionally, but otherwise denies any new complaints today. Objective - Vital Signs Vital signs: Vital Signs Temp 98.4 F 03/27/21 08:00 Pulse 82 03/27/21 10:00 Resp 14 03/27/21 10:00 BP 116/68 03/27/21 10:00 Pulse Ox 95 03/27/21 10:00 Intake & Output 03/26/21 03/27/21 03/27/21 18:59 06:59 18:59 Intake Total 2255 1145 465 Output Total 1295 1835 210 Balance 960 -690 255 Intake: IV 1675 825 225 Sodium Chloride 0.9% 1, 1275 000 ml @ 150 mls/hr IV . Q6H40M [facility] Rx#:[id number] Sodium Chloride 0.9% 1, 825 225 000 ml @ 75 mls/hr IV . [id number] [facility] Rx#:[id number] Oral 580 320 240 Output: Drainage 500 1000 Right Arm 500 1000 Urine 785 835 210 Estimated Blood Loss 10 Other: Voiding Method Indwelling Catheter Indwelling Catheter ABP, PAP, CO, CI - Last Documented Arterial Blood Pressure 114/75 - Exam Vital signs are stable. Patient is in no acute distress and is alert and oriented 3. Wound VAC is in place to the right upper extremity. There is a collection of blood within the dressing of the wound vac. Radial pulse is 2+. Capillary refill is normal at less than 2 seconds. - Labs CBC & Chem 7: 03/25/21 05:28 03/27/21 05:48 Labs: Abnormal Lab Results - Last 24 Hours (Table) 03/26/21 03/26/21 03/26/21 Range/Units 11:44 17:28 21:42 Sodium (137-145) mmol/L Chloride (98-107) mmol/L Carbon Dioxide (22-30) mmol/L BUN (9-20) mg/dL Creatinine (0.66-1.25) mg/dL Glucose (74-99) mg/dL POC Glucose (mg/dL) 116 H 121 H 173 H (75-99) mg/dL Calcium (8.4-10.2) mg/dL AST (17-59) U/L Total Protein (6.3-8.2) g/dL Albumin (3.5-5.0) g/dL 03/27/21 03/27/21 Range/Units 05:48 06:45 Sodium 134 L (137-145) mmol/L Chloride 108 H (98-107) mmol/L Carbon Dioxide 21 L (22-30) mmol/L BUN 60 H (9-20) mg/dL Creatinine 4.47 H (0.66-1.25) mg/dL Glucose 141 H (74-99) mg/dL POC Glucose (mg/dL) 187 H (75-99) mg/dL Calcium 7.4 L (8.4-10.2) mg/dL AST 697 H (17-59) U/L Total Protein 4.0 L (6.3-8.2) g/dL Albumin 1.9 L (3.5-5.0) g/dL Microbiology - Last 24 Hours (Table) 03/23/21 04:45 Blood Culture - Preliminary Blood No Growth after 96 hours 03/21/21 18:34 Blood Culture - Preliminary Blood No Growth after 120 hours 03/21/21 18:34 Blood Culture - Preliminary Blood No Growth after 120 hours 03/25/21 00:10 Urine Culture - Final Urine,Voided 03/22/21 03:36 Urine Culture - Final Urine,Voided Escherichia coli Escherichia coli#2 Assessment and Plan (1) COVID-19 Current Visit: Yes Status: Acute Code(s): U07.1 - COVID-19 SNOMED Code(s): 786825728 (2) Compartment syndrome of right upper extremity Current Visit: Yes Status: Acute Code(s): T79.A11A - TRAUMATIC COMPARTMENT SYNDROME OF R UP EXTREM, INIT SNOMED Code(s): 165603080 (3) Fall Current Visit: Yes Status: Acute Code(s): W19.XXXA - UNSPECIFIED FALL, INITIAL ENCOUNTER SNOMED Code(s): 4858071 Plan: Continue current treatment plan with wound VAC. Patient is scheduled for a repeat I&D with a wound VAC change for the right arm on 03/28/[address] Paez.
[2021-03-27 12:00] LABS: Glucose,Whole Blood 201 mg/dL (75-99)
--- NOTE | 2021-03-27 12:30 | P.PN ---
Subjective Principal diagnosis: Patient is seen for follow-up for acute kidney injury. His renal function has been slowly improving. Creatinine is down to 4.47 today. Urine output is at 60-75 mL an hour. Patient had surgery for right forearm compartment syndrome and replacement of wound VAC yesterday. He had I&D. No significant complaints today trying to increase oral intake. Objective - Vital Signs Vital signs: Vital Signs Temp 98.4 F 03/27/21 08:00 Pulse 82 03/27/21 10:00 Resp 14 03/27/21 10:00 BP 116/68 03/27/21 10:00 Pulse Ox 95 03/27/21 10:00 Intake & Output 03/26/21 03/27/21 03/27/21 18:59 06:59 18:59 Intake Total 2255 1145 465 Output Total 1295 1835 210 Balance 960 -690 255 Intake: IV 1675 825 225 Sodium Chloride 0.9% 1, 1275 000 ml @ 150 mls/hr IV . Q6H40M [facility] Rx#:[id number] Sodium Chloride 0.9% 1, 825 225 000 ml @ 75 mls/hr IV . [id number] [facility] Rx#:[id number] Oral 580 320 240 Output: Drainage 500 1000 Right Arm 500 1000 Urine 785 835 210 Estimated Blood Loss 10 Other: Voiding Method Indwelling Catheter Indwelling Catheter ABP, PAP, CO, CI - Last Documented Arterial Blood Pressure 114/75 - Exam Patient is awake comfortable alert oriented 3. Not in any acute distress. Examination lower extremities shows edema 1+ bilaterally Abdomen is soft nontender Examination of the right upper extremity shows the arm is swollen currently in wound VAC. Patient is not able to move his fingers much. Lungs and heart are not examined as patient is in isolation for coronavirus. - Labs CBC & Chem 7: 03/25/21 05:28 03/27/21 05:48 Labs: Abnormal Lab Results - Last 24 Hours (Table) 03/26/21 03/26/21 03/27/21 Range/Units 17:28 21:42 05:48 Sodium 134 L (137-145) mmol/L Chloride 108 H (98-107) mmol/L Carbon Dioxide 21 L (22-30) mmol/L BUN 60 H (9-20) mg/dL Creatinine 4.47 H (0.66-1.25) mg/dL Glucose 141 H (74-99) mg/dL POC Glucose (mg/dL) 121 H 173 H (75-99) mg/dL Calcium 7.4 L (8.4-10.2) mg/dL AST 697 H (17-59) U/L Total Protein 4.0 L (6.3-8.2) g/dL Albumin 1.9 L (3.5-5.0) g/dL 03/27/21 03/27/21 Range/Units 06:45 11:49 Sodium (137-145) mmol/L Chloride (98-107) mmol/L Carbon Dioxide (22-30) mmol/L BUN (9-20) mg/dL Creatinine (0.66-1.25) mg/dL Glucose (74-99) mg/dL POC Glucose (mg/dL) 187 H 201 H (75-99) mg/dL Calcium (8.4-10.2) mg/dL AST (17-59) U/L Total Protein (6.3-8.2) g/dL Albumin (3.5-5.0) g/dL Microbiology - Last 24 Hours (Table) 03/23/21 04:45 Blood Culture - Preliminary Blood No Growth after 96 hours 03/21/21 18:34 Blood Culture - Preliminary Blood No Growth after 120 hours 03/21/21 18:34 Blood Culture - Preliminary Blood No Growth after 120 hours 03/25/21 00:10 Urine Culture - Final Urine,Voided Assessment and Plan Assessment: 1. Acute kidney injury nonoliguric ATN secondary to rhabdo my lysis/CT contrast. Baseline creatinine 1.0 mg/dL. Renal function is improving. Continue with IV fluids. 2. Traumatic rhabdo myolysis with crush injury 3. Compartment syndrome of right arm, status post I&D yesterday 4. Metabolic acidosis associated with acute kidney injury currently improving 5. Hypocalcemia associated with hyperphosphatemia from rhabdo myolysis rule out nutritional vitamin D deficiency 6. COVID-19 infection currently maintained on room air. Chest x-ray shows bilateral mild infiltrates Plan: 1. Decrease IV fluids. 2. Encourage increased oral intake. 3. Replace potassium 4. Continue with IV antibiotics 5. No need for renal replacement therapy. Renal function has been improving
--- NOTE | 2021-03-27 14:11 | P.PN ---
Subjective Progress Note Date: 03/27/21 70 years old male patient of Dr. Pennington with past medical history of Parkinson's, diabetes with diabetic neuropathy, hypothyroidism, calendar in 2007, chronic back pain with lumbar surgery 25 years ago comes in after he was found pinned in between his bed and the nightstand. Patient stated that he was rolling in his bed when he got stuck. According to the daughter bedside it appears patient has been stuck there for 2 days since he has not taken his medication. Patient was unable to reach anybody. Since nobody heard anything from the patient family called neighbors and friends to check on him. Patient was alert and was found suspended and there in between his bed and nightstand and unable to move himself from this position. Patient was released from his position and brought to the hospital. He is unable to move his right upper extremity with significant bruising and ecchymosis involving the forearm and the hand. Patient has no mobility involving his right arm , with contracture involving his hand.. Patient denies dizziness, confusion or recent falls. He states he was doing well and had no fever, chills, polyuria increased frequency or concern for sepsis. He did see a urologist at [facility] for his recurrent UTIs in January and was found to have a urine infection. Patient was admitted in in October for recurrent falls and UTI sepsis with E. coli resistant to fluoroquinolones. Patient is fairly active at baseline and goes to gym 4 times a week. Patient had a detailed workup including MRI, EEG and echocardiogram on his admission in October, echocardiogram suggest moderate concentric left ventricle hypertrophy with EF 55-60% on the valves with mild mitral and tricuspid regurgitation. Right ventricle pressures were less than 35mm. Vitals reviewed patient is afebrile pulse 63 respiratory rate 16 blood pressure 147/99 oxybutynin 95% on room air. Labs reviewed WBC 13.9 hemoglobin 17.4 sodium 136 potassium 6.1 bicarbonate 19 creatinine 1.35 and blood sugar 242 lactic acid 7.1 AST 660 ALT 259 with CK levels [id number] troponin [address] head and cervical spine showed right ICA hyperdense and recommended CT angiography to: For list exclude internal thrombosis no acute intracranial hemorrhage or mass effect degenerative and nonspecific white matter changes most typical remote ischemia slightly gait greater central competent of ventricle dilation can be associated with normal pressure hydrocephalus severe multilevel degenerative disc disease no fracture X-rays humerus was negative for fracture or dislocation. X-ray forearm suggestive no acute fracture diffuse soft tissue edema suggestive of posttraumatic or postinfectious edema shoulder x-ray on the right shows hairline fracture nondisplaced distal right clavicle with soft tissue edema. Chest x-ray with right lower lobe A to lactose is only infiltrated nodular density right lung may be related to superimposed structure short-term follow-up with repeat chest x-ray recommended. EKG suggested normal sinus rhythm with T-wave abnormality noted x-ray hand no fracture or dislocation but patient's patient's were flexed extensive soft tissue swelling noted 03/22: She and has been hypotensive and ordered for 2 more liters of IV fluid bolus. Blood culture and urine culture in progress. Patient has been afebrile, temperature actually on the lower side 96.7-97.5. Heart rate 78, blood pressure 110/71 after fluids, pulse ox 93% on 4 L nasal cannula. Repeat blood work reveals WBC 12.0. Sodium 133, potassium 6.5, chloride 112, CO2 10, BUN 31 and creatinine 2.65. Blood sugars running between 207 and 221. Repeat lactic acid 2.7. CK 60,158. AST 1424, ALT 87. Kayexalate 30 g, calcium gluconate 1 g with 10 units of regular insulin and D50 50 ML's all ordered. Consult added for nephrology. Orthopedics is planning on returning to or tomorrow to remove wound VAC and assess wounds and possible new wound VAC placement, possible closure partial closure of the wounds. Patient also followed by neurology and infectious disease. Patient is currently on 2 g every 12 hours 03/23: Due to worsening renal function and worsening rhabdomyolysis as well as hypotension yesterday, patient was moved into the intensive care unit. His uri ne output has been 20-30 ML's. He has been continued on IV fluids currently at 150 mL per hour. We will add in fluid bolus of 2 L. Patient has been seen by nephrology and was started on bicarb drip yesterday now discontinued. Continue to assess daily for need for renal replacement therapy. Vascular surgery is following for possible dialysis catheter. No further vascular intervention for the upper extremity at this time. Neurology has no further plans will recommend follow-up with his neurologist and will sign off the case for now. Renal ultrasound revealed suboptimal study without hydronephrosis bilaterally. 03/24 patient examined at bedside. He has no improvement in sensation involving her right upper extremity. He did have an episode last night when he woke up in Panic as patient thought he lost hus arm. He is otherwise alert and answer questions appropriately. Vitals stable hemoglobin stable, calcium is 6.2 creatinine kinase is 39,000 181. IV fluids are running at 1 50 mL per hour urine output approximately 30 ML per hour. 1 L bolus given to the patient 1 calcium 1 g calcium gluconate ordered. Tums Ultra 45 and repeat treatment 3 times a day. Discussed with patient the possible need to be on PTSD reluctant to start at this point medication. 03/25 patient examined at bedside. He is complaining of significant pain in his right arm is otherwise stable patient's to 94% on 2 L. Hemoglobin stable at 10, BUN and creatinine continued to trend up. Urine continues to remain infected. Urine output is 1.4 L in the past 24 hours patient may need dialysis if no i mprovement in unit urine output is seen. Dilaudid 0.5 mg stat given 03/26: Patient remains in the intensive care unit. Urine culture finalized with 2 E. coli 1 ESBL, currently on meropenem and followed by Dr. Muro. Nephrology has decreased IV fluids to 70 ML's per hour once patient is eating. He is scheduled for another I&D today with orthopedics. He continues to have no movement to the right upper extremity and has slight sensation. Patient has been afebrile, heart rate in the 70s, blood pressure 121/65, pulse ox 94% on room air. Sodium 134, potassium 4, chloride 108, CO2 20, BUN 57 creatinine 4.64. Blood sugars running between 106 and 160. AST 873. 03/27: Patient remains in the intensive care unit but has been downgraded to [facility] without telemetry. Patient underwent I&D irrigation only yesterday with Dr. Paez. Wound VAC is in place and there is a collection of blood within the dressing. Repeat I&D scheduled for tomorrow. Patient is continued on meropenem. Patient is afebrile, heart rate 85, blood pressure 120/92, pulse ox 95% on room air. BUN 60, creatinine 4.47. Capillary blood glucose running between 121 at 201. Urine output is 60-75 mL per hour. Nephrology is not planning on renal replacement. Repeat chest x-ray reveals patchy basilar atelectasis and/or infiltrates persist unchanged. ROS Constitutional: Denies chills, Denies fever, Denies lethargy, Denies malaise, Denies poor appetite, Denies weakness, Denies weight loss Eyes: denies decreased vision, denies diplopia, denies discharge, denies pain Ears: deny: decreased hearing Ears, nose, mouth and throat: Denies dental pain, Denies headache, Denies nasal discharge, Denies nose pain Cardiovascular: Denies chest pain, Denies decreased exercise tolerance, Denies e sang, Denies high blood pressure, Denies irregular heart beat, Denies palpitations, Denies paroxysmal nocturnal dyspnea, Denies rapid heart beat, Denies shortness of breath Respiratory: Denies congestion, Denies cough, Denies cough with sputum, Denies dyspnea, Denies home oxygen, Denies wheezing Gastrointestinal: Denies abdominal pain, Denies change in bowel habits, Denies coffee ground emesis, Denies heartburn, Denies hematemesis, Denies hematochezia, Denies loss of appetite, Denies nausea, Denies vomiting Genitourinary: Denies dysuria, Denies flank pain, Denies kidney stones, Denies menorrhagia, Denies urgency, Denies urinary frequency Musculoskeletal: Denies gait dysfunction, Denies limitation of motion, Denies morning stiffness, Denies muscle cramps endorses contracture, swelling, loss of sensation involving right upper extremity Integumentary: Denies rash, Denies wounds, Denies brittle nails, Denies change in hair/nails, Denies darkening of skin Neurological: Denies balance difficulties, no change in speech, Denies double vision, Denies gait dysfunction, Denies loss of vision, Denies motor disturbance, Denies numbness, Denies paralysis, induces tingling involving the dorsal aspect of foot Denies seizures Psychiatric: Denies anxiety, Denies depression mild PTSD Endocrine: Denies excessive sweating, Denies excessive thirst, Denies high blood sugars, Denies palpitations Hematologic/Lymphatic: Denies easy bruising, Denies lymphadenopathy Physical exam - Constitutional General appearance: Alert and oriented 3 cooperative, no acute distress, obese - EENT Eyes: anicteric sclerae, PERRLA, normal appearance ENT: hearing grossly normal - Neck Neck: no lymphadenopathy, normal ROM, no other, no rigidity, no stridor, no thyromegaly - Respiratory Respiratory: bilateral: CTA, negative: diminished, dullness, rales, rhonchi - Cardiovascular Rhythm: regular Heart sounds: normal: S1, S2 Abnormal Heart Sounds: no systolic murmur, no diastolic murmur, no rub, no S3 Gallop, no S4 Gallop, no click, no other - Gastrointestinal General gastrointestinal: normal bowel sounds, soft nontender - Integumentary Integumentary: Significant bruising and ecchymosis involving right upper extremity involving the hand, forearm and arm with significant swelling. Patient has no movement of the right arm. - Neurologic Neurologic: 0/5 on flexion/extension /internal rotation and external rotation involving right upper extremity, lack of sensation involving the right forearm. Sensation intact in the upper arm. tingling and numbness involving the dorsal aspect of both feet - Musculoskeletal Musculoskeletal: gait not assessed,right upper extremity with no active movement, hand in flexion with diffuse swelling involving the digits, wrist, forearm and upper arm and axilla. Nontender to touch peripheral pulses are diminished involving the right upper extremity. No mobility involving shoulder, elbow or wrist or fingers. Lack of sensation involving the right upper extremity. Passive shoulder movement present with no significant pain. No significant pain involving forearm or hand. capillary refill close to 2 seconds. Peripheral pulses are diminished compared to the other extremity. - Psychiatric Psychiatric: A&O x's 3, appropriate affect Assessment and plan Right forearm compartment syndrome -Status post dorsal and volar fasciotomies with Dr. Paez, 03/21. Vascular surgery Dr. Gerardo is not planning any further intervention. -Status post debridement and irrigation on 03/23 - Repeat irrigation 03/26 Acute rhabdomyolysis secondary to injury - Continue IV fluids at 70 mL per hour -Repeat CK tomorrow -Status post bicarb drip Hypo-calcemia -Status post calcium gluconate, calcium carbonate 500 3 times a day - Distal nondisplaced right clavicle fracture Acute COVID19 infection - Continue isolation Acute metabolic encephalopathy secondary to sepsis and acute kidney injury, rhabdomyolysis, Dilaudid Consult with neurology appreciated and signed off Stroke is not suspected Vitamin B12 1000 g daily added by neurology Hyperkalemia secondary to Rhabdomyolysis - Consult nephrology appreciated Acute lactic acidosis secondary to hypovolemia - Status post IV fluid bolus - Continue IV fluids at 70 mL/h. Acute kidney injury secondary to rhabdomyolysis secondary to ATN - Continue IV fluids with normal saline at 75 mL per hour - Baseline creatinine 0.8 -Avoid nephrotoxic agent -Hold metformin -Consult nephrology appreciated - No plan for dialysis Acute transaminitis - Liver enzymes have worsened since last admission -Continue perfusion with IV fluids Type II uncontrolled diabetes - Last A1c 7.2 - Hold metformin - Continue insulin sliding Scale and Lantus at 5 units at at bedtime History of UTI, acute ESBL E. coli UTI - Merrem. History of Sepsis secondary to acute urinary tract infection In October 2020 - Unclear if patient fall was a result of confusion. Infectious metabolic encephalopathy - resolved - CT head and neck suggestive of hyperdense involving right carotid. We will evaluate with CT angiogram head and neck.. Also mentioned normal pressure hydrocephalus on the CAT scan though MRI was negative for hydrocephalus in October Frequent falls possibly related to worsening Parkinson's, exacerbated by sepsis. - Does PT as outpatient. We'll evaluate for rehab once patient is stableDiabetic polyneuropathy. - Lyrica 150 mg twice daily Parkinson's. -Continue Sinemet 251 101-1/2 3 times daily. Hypothyroidism. -Continue levothyroxine 150 mcg daily. Guillain-Stinnett syndrome in 2007. Benign prostatic hypertrophy. -Continue Flomax or 0.4 mg daily. GI prophylaxis. Protonix. DVT prophylaxis. Heparin subcu. DISCHARGE PLAN Home, to be determined. PT and OT consults. Impression and plan of care have been directed as dictated by the signing physician. Sophie Hitchcock nurse practitioner acting as scribe for signing physician. Objective - Vital Signs Vital signs: Vital Signs Temp 98.4 F 03/27/21 08:00 Pulse 82 03/27/21 10:00 Resp 14 03/27/21 10:00 BP 116/68 03/27/21 10:00 Pulse Ox 95 03/27/21 10:00 Intake & Output 03/26/21 03/27/21 03/27/21 18:59 06:59 18:59 Intake Total 2255 1145 465 Output Total 1295 1835 210 Balance 960 -690 255 Intake: IV 1675 825 225 Sodium Chloride 0.9% 1, 1275 000 ml @ 150 mls/hr IV . Q6H40M [facility] Rx#:[id number] Sodium Chloride 0.9% 1, 825 225 000 ml @ 75 mls/hr IV . [id number] [facility] Rx#:[id number] Oral 580 320 240 Output: Drainage 500 1000 Right Arm 500 1000 Urine 785 835 210 Estimated Blood Loss 10 Other: Voiding Method Indwelling Catheter Indwelling Catheter ABP, PAP, CO, CI - Last Documented Arterial Blood Pressure 114/75 - Labs CBC & Chem 7: 03/25/21 05:28 03/27/21 05:48 Labs: Abnormal Lab Results - Last 24 Hours (Table) 03/26/21 03/26/21 03/26/21 Range/Units 11:44 17:28 21:42 Sodium (137-145) mmol/L Chloride (98-107) mmol/L Carbon Dioxide (22-30) mmol/L BUN (9-20) mg/dL Creatinine (0.66-1.25) mg/dL Glucose (74-99) mg/dL POC Glucose (mg/dL) 116 H 121 H 173 H (75-99) mg/dL Calcium (8.4-10.2) mg/dL AST (17-59) U/L Total Protein (6.3-8.2) g/dL Albumin (3.5-5.0) g/dL 03/27/21 03/27/21 Range/Units 05:48 06:45 Sodium 134 L (137-145) mmol/L Chloride 108 H (98-107) mmol/L Carbon Dioxide 21 L (22-30) mmol/L BUN 60 H (9-20) mg/dL Creatinine 4.47 H (0.66-1.25) mg/dL Glucose 141 H (74-99) mg/dL POC Glucose (mg/dL) 187 H (75-99) mg/dL Calcium 7.4 L (8.4-10.2) mg/dL AST 697 H (17-59) U/L Total Protein 4.0 L (6.3-8.2) g/dL Albumin 1.9 L (3.5-5.0) g/dL Microbiology - Last 24 Hours (Table) 03/23/21 04:45 Blood Culture - Preliminary Blood No Growth after 96 hours 03/21/21 18:34 Blood Culture - Preliminary Blood No Growth after 120 hours 03/21/21 18:34 Blood Culture - Preliminary Blood No Growth after 120 hours 03/25/21 00:10 Urine Culture - Final Urine,Voided 03/22/21 03:36 Urine Culture - Final Urine,Voided Escherichia coli Escherichia coli#2
[2021-03-27 15:56] LABS: HCT 30.8 % (39.0-53.0); HGB 9.9 gm/dL (13.0-17.5); Hypochromasia Slight; MCH 30.8 pg (25.0-35.0); MCHC 32.2 g/dL (31.0-37.0); MCV 95.6 fL (80.0-100.0); Mean Platelet Volume 10.3; Platelet Count 167 k/uL (150-450); RBC 3.22 m/uL (4.30-5.90); RDW 14.8 % (11.5-15.5); WBC 4.9 k/uL (3.8-10.6)
[2021-03-27 16:45] LABS: Glucose,Whole Blood 121 mg/dL (75-99)
[2021-03-27] MEDS ORDERED: LIDOCAINE 1% (10MG/ML) FOR IV START INTRADERMA PRN (19:28)
[2021-03-27] MEDS ORDERED: LACTATED RINGERS 1,000 ML IV SCH (19:28)
[2021-03-27] MEDS ORDERED: ONDANSETRON 4 MG/2 ML VIAL IVP ONE (19:28)
[2021-03-27] MEDS: ACETAMINOPHEN TAB 325 MG TAB PO PRN (20:15)
[2021-03-27 20:38] LABS: Glucose,Whole Blood 125 mg/dL (75-99)
[2021-03-27] MEDS: INSULIN DETEMIR (LEVEMIR) 100 UNIT/ML SYR SQ SCH (21:08)
--- NOTE | 2021-03-27 22:29 | P.PN ---
Subjective Progress Note Date: 03/27/21 Principal diagnosis: Right forearm compartment syndrome , covid 19 infection Patient is a 70-year-old male who was brought into the hospital after the patient was started between bed and nightstand for 2 days noticed to have compartment syndrome right forearm status post fasciotomy 3, patient was transferred to the ICU last night because of worsening hypotension. Patient was taken back to the OR 03/23/2021 and is status post debridement of devitalized tissue and reapplication of the wound VAC, and did have a washout and change of the wound VAC on 03/27/2021 On today's evaluation, and that is the patient remains to be afebrile, the patient is hemodynamically stable not any pressor support, the patient is breathing comfortably currently on room air, patient pain the right forearm is currently controlled, patient denies cough or sputum production , the patient denies nausea no vomiting no abdominal pain and no diarrhea Objective - Vital Signs Vital signs: Vital Signs Temp 98.6 F 03/27/21 12:00 Pulse 85 03/27/21 12:00 Resp 14 03/27/21 12:00 BP 120/92 03/27/21 12:00 Pulse Ox 95 03/27/21 12:00 Intake & Output 03/26/21 03/27/21 03/27/21 18:59 06:59 18:59 Intake Total 2255 1145 930 Output Total 1295 1835 360 Balance 960 -690 570 Intake: IV 1675 825 450 Sodium Chloride 0.9% 1, 1275 000 ml @ 150 mls/hr IV . Q6H40M [facility] Rx#:[id number] Sodium Chloride 0.9% 1, 825 450 000 ml @ 75 mls/hr IV . [id number] [facility] Rx#:[id number] Oral 580 320 480 Output: Drainage 500 1000 Right Arm 500 1000 Urine 785 835 360 Estimated Blood Loss 10 Other: Voiding Method Indwelling Catheter Indwelling Catheter Indwelling Catheter ABP, PAP, CO, CI - Last Documented Arterial Blood Pressure 114/75 - Exam GENERAL DESCRIPTION:[ Patient is awake and alert in no distress] HEENT: [Oral mucosa is dry and no pharyngeal erythema] EYES : [No pallor or scleral icterus] RESPIRATORY SYSTEM: [Unlabored breathing decreased breath sounds at the base] CARDIA VASCULAR SYSTEM: [S1-S2 regular rate and rhythm no murmur] GI: [Abdominal soft there's no tenderness no organomegaly] EXTREMITIES: [Right forearm currently covered with a wound VAC there's no significant swelling no redness] - Labs CBC & Chem 7: 03/27/21 05:48 03/27/21 05:48 Labs: Abnormal Lab Results - Last 24 Hours (Table) 03/26/21 03/26/21 03/27/21 Range/Units 17:28 21:42 05:48 Sodium 134 L (137-145) mmol/L Chloride 108 H (98-107) mmol/L Carbon Dioxide 21 L (22-30) mmol/L BUN 60 H (9-20) mg/dL Creatinine 4.47 H (0.66-1.25) mg/dL Glucose 141 H (74-99) mg/dL POC Glucose (mg/dL) 121 H 173 H (75-99) mg/dL Calcium 7.4 L (8.4-10.2) mg/dL AST 697 H (17-59) U/L Total Protein 4.0 L (6.3-8.2) g/dL Albumin 1.9 L (3.5-5.0) g/dL 03/27/21 03/27/21 Range/Units 06:45 11:49 Sodium (137-145) mmol/L Chloride (98-107) mmol/L Carbon Dioxide (22-30) mmol/L BUN (9-20) mg/dL Creatinine (0.66-1.25) mg/dL Glucose (74-99) mg/dL POC Glucose (mg/dL) 187 H 201 H (75-99) mg/dL Calcium (8.4-10.2) mg/dL AST (17-59) U/L Total Protein (6.3-8.2) g/dL Albumin (3.5-5.0) g/dL Microbiology - Last 24 Hours (Table) 03/23/21 04:45 Blood Culture - Preliminary Blood No Growth after 96 hours 03/21/21 18:34 Blood Culture - Preliminary Blood No Growth after 120 hours 03/21/21 18:34 Blood Culture - Preliminary Blood No Growth after 120 hours 03/25/21 00:10 Urine Culture - Final Urine,Voided Assessment and Plan (1) Compartment syndrome of forearm Current Visit: Yes Status: Acute Priority: High Onset Date: ~03/21/21 Code(s): T79.A19A - TRAUMATIC COMPARTMENT SYNDROME OF UNSP UPPER EXTREMITY, INIT SNOMED Code(s): 086227495 (2) COVID-19 Current Visit: Yes Status: Acute Code(s): U07.1 - COVID-19 SNOMED Code(s): 028692902 Plan: Patient with right forearm compartment syndrome traumatic in this patient with status post fasciotomy and wound VAC application , patient is afebrile and his white count is normalized, blood culture has been negative so far 2-patient did have a positive covid test, no significant respiratory symptoms and the patient is currently on room air, patient to continue with current supportive treatment 3-positive urine culture with ESBL E. coli repeat urinalysis is still positive however the culture subsequently came back negative, patient to continue with Invanz and monitor clinical course closely Time with Patient: Less than 30
[2021-03-28] MEDS: SODIUM CHLORIDE 0.9% 1,000 ML IV SCH ×2 (01:39→09:24)
[2021-03-28] MEDS: MEROPENEM 1 GM in SODIUM CHLORIDE 0.9% 100 ML IVPB SCH ×2 (05:38→16:19)
[2021-03-28] MEDS: LEVOTHYROXINE 75 MCG TAB PO SCH (05:40)
[2021-03-28] MEDS ORDERED: HYDROmorphone 0.5 MG/0.5 ML SYRINGE IVP PRN (07:00)
[2021-03-28 07:10] LABS: Glucose,Whole Blood 163 mg/dL (75-99)
[2021-03-28 07:10] LABS: ALT 90 U/L (4-49); AST 570 U/L (17-59); African American GFR (CKD) 16 (>60 ml/min/1.73 sqM); Albumin 1.9 g/dL (3.5-5.0); Albumin/Globulin Ratio 0.8; Alkaline Phosphatase 62 U/L (38-126); Anion Gap 6 mmol/L; Blood Urea Nitrogen 68 mg/dL (9-20); Calcium 8.2 mg/dL (8.4-10.2); Carbon Dioxide 17 mmol/L (22-30); Chloride 113 mmol/L (98-107); Globulin 2.3 g/dL; Glucose 128 mg/dL (74-99); Non-African American GFR(CKD) 13 (>60 ml/min/1.73 sqM); Potassium 4.2 mmol/L (3.5-5.1); Sodium 136 mmol/L (137-145); Total Bilirubin 0.8 mg/dL (0.2-1.3); Total Protein 4.2 g/dL (6.3-8.2)
[2021-03-28] MEDS: INSULIN ASPART (NovoLOG) 100 UNIT/ML VIAL SQ SCH ×4 (09:22→21:10)
[2021-03-28] MEDS: TAMSULOSIN 0.4 MG CAP.ER.24H PO SCH (09:23)
[2021-03-28] MEDS: ZINC SULFATE 220 MG CAP PO SCH (09:23)
[2021-03-28] MEDS: MULTIVITAMINS, THERA 1 EACH TAB PO SCH (09:23)
[2021-03-28] MEDS: CYANOCOBALAMIN 500 MCG TAB PO SCH (09:23)
[2021-03-28] MEDS: HEPARIN SODIUM,PORCINE/PF 5,000 UNIT/0.5 ML SYRINGE SQ SCH ×2 (09:23→20:04)
[2021-03-28] MEDS: PREGABALIN 75 MG CAP PO SCH ×3 (09:23→20:09)
[2021-03-28] MEDS: ASCORBIC ACID 500 MG TAB PO SCH (09:23)
[2021-03-28] MEDS: CARBIDOPA-LEVODOPA 25-100 MG 1 EACH TAB PO SCH ×3 (09:23→20:08)
[2021-03-28] MEDS: CALCIUM CARBONATE 500 MG CHEWABLE PO SCH ×3 (09:23→20:08)
[2021-03-28 10:16] LABS: HCT 35.9 % (39.0-53.0); HGB 11.9 gm/dL (13.0-17.5); MCH 30.6 pg (25.0-35.0); MCHC 33.1 g/dL (31.0-37.0); MCV 92.3 fL (80.0-100.0); Mean Platelet Volume 10.7; Platelet Count 163 k/uL (150-450); RBC 3.89 m/uL (4.30-5.90); RDW 14.5 % (11.5-15.5); WBC 7.9 k/uL (3.8-10.6)
[2021-03-28] MEDS: LACTATED RINGERS 1,000 ML IV SCH (10:41)
--- NOTE | 2021-03-28 10:45 | P.PN ---
Subjective Progress Note Date: 03/28/21 Principal diagnosis: Compartment syndrome right forearm. Status post Dorsal and volar fasciotomy Right forearm. Multiple medical comorbidities. This is a 70-year-old male who is admitted and being managed for compartment syndrome. Patient is status post irrigation of the right forearm compartment fasciotomy wounds and replacement of the wound vac by Dr. Paez. This is postoperative day #2 from the most recent irrigation and debridement and wound VAC placement and patient is seen and evaluated at bedside today. Nursing reported a collection of blood within the wound vac dressing, but states that the wound VAC is functioning normally. Patient reports a shooting pain in the right arm occasionally, but otherwise denies any new complaints today. Vital signs are stable. Objective - Vital Signs Vital signs: Vital Signs Temp 98.6 F 03/28/21 10:28 Pulse 88 03/28/21 10:28 Resp 18 03/28/21 10:28 BP 118/82 03/28/21 10:28 Pulse Ox 92 L 03/28/21 10:28 Intake & Output 03/27/21 03/28/21 03/28/21 18:59 06:59 18:59 Intake Total 1155 Output Total 515 500 Balance 640 -500 Intake: IV 675 Sodium Chloride 0.9% 1, 675 000 ml @ 75 mls/hr IV . [id number] [facility] Rx#:[id number] Oral 480 Output: Urine 515 500 Other: Voiding Method Indwelling Catheter Indwelling Catheter ABP, PAP, CO, CI - Last Documented Arterial Blood Pressure 114/75 - Exam This is a pleasant 70-year-old male in no acute distress. He is alert and oriented at this time. Exam of the right upper extremity reveals mild tenderness to the distal clavicle. There is some swelling to the upper extremity but compartments feel soft. The forearm has 2 open wounds with wound VAC in place. The wound VAC appears to be functioning well. There is some fluid leaking from the clear adhesive wound VAC covering. I am able to palpate a weak radial pulse. Palpation of the pulse may be hindered by the drapes. He is unable to actively move fingers. Capillary refill is less than 3 seconds to all fingers. - Labs CBC & Chem 7: 03/28/21 07:58 03/28/21 05:33 Labs: Abnormal Lab Results - Last 24 Hours (Table) 03/27/21 03/27/2122 Range/Units 05:48 05:48 11:49 RBC 3.22 L (4.30-5.90) m/uL Hgb 9.9 L (13.0-17.5) gm/dL Hct 30.8 L (39.0-53.0) % Sodium (137-145) mmol/L Chloride (98-107) mmol/L Carbon Dioxide (22-30) mmol/L BUN (9-20) mg/dL Creatinine (0.66-1.25) mg/dL Glucose (74-99) mg/dL POC Glucose (mg/dL) 201 H (75-99) mg/dL Calcium (8.4-10.2) mg/dL AST (17-59) U/L ALT (4-49) U/L Creatine Kinase 61864 H* (55-170) U/L Total Protein (6.3-8.2) g/dL Albumin (3.5-5.0) g/dL 03/27/21 03/27/21 03/28/21 Range/Units 16:43 20:36 05:33 RBC (4.30-5.90) m/uL Hgb (13.0-17.5) gm/dL Hct (39.0-53.0) % Sodium 136 L (137-145) mmol/L Chloride 113 H (98-107) mmol/L Carbon Dioxide 17 L (22-30) mmol/L BUN 68 H (9-20) mg/dL Creatinine 4.22 H (0.66-1.25) mg/dL Glucose 128 H (74-99) mg/dL POC Glucose (mg/dL) 121 H 125 H (75-99) mg/dL Calcium 8.2 L (8.4-10.2) mg/dL AST 570 H (17-59) U/L ALT 90 H (4-49) U/L Creatine Kinase (55-170) U/L Total Protein 4.2 L (6.3-8.2) g/dL Albumin 1.9 L (3.5-5.0) g/dL 03/28/21 03/28/21 Range/Units 07:08 07:58 RBC 3.89 L (4.30-5.90) m/uL Hgb 11.9 L (13.0-17.5) gm/dL Hct 35.9 L (39.0-53.0) % Sodium (137-145) mmol/L Chloride (98-107) mmol/L Carbon Dioxide (22-30) mmol/L BUN (9-20) mg/dL Creatinine (0.66-1.25) mg/dL Glucose (74-99) mg/dL POC Glucose (mg/dL) 163 H (75-99) mg/dL Calcium (8.4-10.2) mg/dL AST (17-59) U/L ALT (4-49) U/L Creatine Kinase (55-170) U/L Total Protein (6.3-8.2) g/dL Albumin (3.5-5.0) g/dL Microbiology - Last 24 Hours (Table) 03/23/21 04:45 Blood Culture - Preliminary Blood No Growth after 120 hours 03/21/21 18:34 Blood Culture - Final Blood No Growth after 144 hours 03/21/21 18:34 Blood Culture - Final Blood No Growth after 144 hours Assessment and Plan (1) MINI (acute kidney injury) Current Visit: Yes Status: Acute Code(s): N17.9 - ACUTE KIDNEY FAILURE, UNSPECIFIED SNOMED Code(s): 78232779 (2) Compartment syndrome of right upper extremity Current Visit: Yes Status: Acute Code(s): T79.A11A - TRAUMATIC COMPARTMENT SYNDROME OF R UP EXTREM, INIT SNOMED Code(s): 691417850 (3) Compression neuropathy of right upper extremity Current Visit: Yes Status: Acute Code(s): G56.91 - UNSPECIFIED MONONEUROPATHY OF RIGHT UPPER LIMB SNOMED Code(s): 735966105 (4) Fall Current Visit: Yes Status: Acute Code(s): W19.XXXA - UNSPECIFIED FALL, INITIAL ENCOUNTER SNOMED Code(s): 3085525 (5) Lactic acidosis Current Visit: Yes Status: Acute Code(s): E87.2 - ACIDOSIS SNOMED Code(s): 59490721 (6) Urinary tract infection Current Visit: No Status: Acute Code(s): N39.0 - URINARY TRACT INFECTION, SITE NOT SPECIFIED SNOMED Code(s): 10919690 Plan: The clinical findings are discussed with the patient and nursing staff. We are planning repeat irrigation and debridement and wound VAC changed today in the OR. Continue current care.
[2021-03-28 11:41] LABS: Glucose,Whole Blood 153 mg/dL (75-99)
--- NOTE | 2021-03-28 11:43 | P.PN ---
Subjective Progress Note Date: 03/28/21 Principal diagnosis: Rhabdomyolysis. Reevaluated today on 03/25/21, patient is doing fairly well, he is relatively asymptomatic, remains on IV fluids, remains on antibiotics. Good urine output,, renal functioning is a bit worse with a BUN of 50 creatinine 4.89. WBC count is 4.5 hemoglobin is 10.8. Patient is on room air with O2 saturation of 92%, he is hemodynamically stable, not requiring any pressors. Patient is scheduled to undergo more surgery on his forearms tomorrow, and may be closure of his fasciotomy. This will be attempted tomorrow. Patient had acute kidney injury and hyperkalemia, his urine output was about 1.4 L in the last 24 hours. Patient seems to have nonoliguric acute kidney injury secondary to acute tubular necrosis from rhabdomyolysis and possibly CT with contrast. On 03/26/2021 patient seen in follow-up in intensive care unit, he is awake and alert, in no acute distress, breathing comfortably, he is currently on room air with a pulse ox of 94%, hemodynamically stable, he remains on IV fluids with point and was seen at a rate of 150 ML per hour, no other drips, no vasopressors, she has been afebrile, hemodynamically has been stable, he is currently in sinus mechanism with a rate of 76 BPM. His last chest x-ray from 03/23/2021 showed chronic changes and cardiomegaly with the medial left lower lung atelectasis. From pulmonary perspective he has remained very stable. Patient is status post I&D, and fissurectomy of the right arm on 03/23/2021. Today's labs have been reviewed, his sodium is 134, potassium is 4.0, chloride is 108, CO2 is 20, BUN is 57, creatinine is 4.64, AST is 873, ALT and alk phos were within normal limits, his last CK was 38,434, improving, urinalysis showed evidence of urinary tract infection, and patient remains on meropenem for antibiotic coverage, urine culture showed ESBL E-Coli and a regular E-coli. Patient is receiving pain medications for his right arm. His pain is reasonably controlled. Patient has decreased mobility of his right upper extremity and patient does have slight sensation. He is being closely followed by orthopedic surgery and the plan is to the patient to go back to the operating room for repeat irrigation and debridement and wound VAC change of the right arm today by Dr. Paez On 03/27/2021 patient seen in follow-up in the intensive care unit, he is awake and alert, in no acute distress, resting in bed, breathing comfortably, room air pulse ox is 94%, hemodynamically patient has remained stable, he is not on any vasopressor support, he is on point of saline at a rate of 75 ML per hour, no other drips. Patient is status post right forearm compartment fasciotomy wound INT irrigation without debridement, and replacement of the wound VAC, and placement of the retention sutures with elastic Vesseloops and nicole. Patient tolerated procedure very well yesterday, he returned to his room in the ICU in stable condition, overnight there has been some noted swelling in the area of the right forearm, and surgical services have been notified. Today's labs have been reviewed, his CPK level was improving, today's level is still pending, his CBC has not resulted yet, his sodium was 134, potassium is 3.6, chloride was 108, CO2 is 21 BUN 60, creatinine is 4.47, slightly improved compared to yesterday, and has been improving for the last couple of days. His AST is improving and is down to 697, ALT is 30, and alk phos is 72. Patient remains on meropenem for ESBL E. coli urinary tract infection, ID services are following. Patient is receiving pain medications for pain in his surgical site in the right forearm. His pain is fairly well controlled. he has not had any worsening dyspnea or cough, no completes of chest discomfort. His follow-up chest x-ray yesterday showed patchy basilar atelectasis or infiltrates that were unchanged compared his chest x-ray from 03/23/2021. His urine output is anywhere from 60- 70 ML per hour. Progress note dated 03/28/2021. The patient was transferred out of the intensive care unit yesterday. He was seen today in room 480. Currently, the patient's on room air. He is getting saline at 75 mL an hour. Generally speaking, is doing reasonably well. He denies any shortness of breath, cough, phlegm production, chest pain, chest discomfort, fever, or chills. Laboratory data includes a white count of 7.9, he moglobin 11.9, hematocrit 35.9, and a platelet count of 163,000. Sodium 136, potassium 4.2, chlorides 113, CO2 17, anion gap 6, BUN 68, creatinine 4.22. Urine cultures from March 22, show evidence of Escherichia coli. Objective - Vital Signs Vital signs: Vital Signs Temp 97.4 F L 03/28/21 10:53 Pulse 69 03/28/21 10:53 Resp 15 03/28/21 10:53 BP 118/75 03/28/21 10:53 Pulse Ox 95 03/28/21 10:53 Intake & Output 03/27/21 03/28/21 03/28/21 18:59 06:59 18:59 Intake Total 1155 600 Output Total 515 500 Balance 640 -500 600 Intake: IV 675 600 Sodium Chloride 0.9% 1, 675 600 000 ml @ 75 mls/hr IV . [id number] [facility] Rx#:[id number] Oral 480 Output: Urine 515 500 Other: Voiding Method Indwelling Catheter Indwelling Catheter Indwelling Catheter ABP, PAP, CO, CI - Last Documented Arterial Blood Pressure 114/75 - Exam No acute distress, oriented 3. Room air saturations 95%. HEENT examination is grossly unremarkable. Neck supple. Full range of motion. No adenopathy thyromegaly or neck vein distention. Cardiovascular examination reveals regular rhythm rate. S1-S2 normal. No S3 or S4. No discernible murmur noted. Heart rate 82 bpm. Lungs reveal clear breath sounds. Her sounds are equal bilaterally. No adventitious lung sounds including wheezes rhonchi or crackles. Abdomen soft bowel sounds are heard. No masses or tenderness. Extremities are intact. No cyanosis clubbing or edema. Right upper extremity has a surgical dressing and wound VAC in place. Status post fasciotomy noted and right upper extremity for compartment syndrome. Skin is without rash or lesion. Neurologic examination is brief but nonfocal. - Labs CBC & Chem 7: 03/28/21 07:58 03/28/21 05:33 Labs: Abnormal Lab Results - Last 24 Hours (Table) 03/27/21 03/27/21 03/27/21 Range/Units 05:48 05:48 11:49 RBC 3.22 L (4.30-5.90) m/uL Hgb 9.9 L (13.0-17.5) gm/dL Hct 30.8 L (39.0-53.0) % Sodium (137-145) mmol/L Chloride (98-107) mmol/L Carbon Dioxide (22-30) mmol/L BUN (9-20) mg/dL Creatinine (0.66-1.25) mg/dL Glucose (74-99) mg/dL POC Glucose (mg/dL) 201 H (75-99) mg/dL Calcium (8.4-10.2) mg/dL AST (17-59) U/L ALT (4-49) U/L Creatine Kinase 78662 H* (55-170) U/L Total Protein (6.3-8.2) g/dL Albumin (3.5-5.0) g/dL 03/27/21 03/27/21 03/28/21 Range/Units 16:43 20:36 05:33 RBC (4.30-5.90) m/uL Hgb (13.0-17.5) gm/dL Hct (39.0-53.0) % Sodium 136 L (137-145) mmol/L Chloride 113 H (98-107) mmol/L Carbon Dioxide 17 L (22-30) mmol/L BUN 68 H (9-20) mg/dL Creatinine 4.22 H (0.66-1.25) mg/dL Glucose 128 H (74-99) mg/dL POC Glucose (mg/dL) 121 H 125 H (75-99) mg/dL Calcium 8.2 L (8.4-10.2) mg/dL AST 570 H (17-59) U/L ALT 90 H (4-49) U/L Creatine Kinase (55-170) U/L Total Protein 4.2 L (6.3-8.2) g/dL Albumin 1.9 L (3.5-5.0) g/dL 03/28/21 03/28/21 Range/Units 07:08 07:58 RBC 3.89 L (4.30-5.90) m/uL Hgb 11.9 L (13.0-17.5) gm/dL Hct 35.9 L (39.0-53.0) % Sodium (137-145) mmol/L Chloride (98-107) mmol/L Carbon Dioxide (22-30) mmol/L BUN (9-20) mg/dL Creatinine (0.66-1.25) mg/dL Glucose (74-99) mg/dL POC Glucose (mg/dL) 163 H (75-99) mg/dL Calcium (8.4-10.2) mg/dL AST (17-59) U/L ALT (4-49) U/L Creatine Kinase (55-170) U/L Total Protein (6.3-8.2) g/dL Albumin (3.5-5.0) g/dL Microbiology - Last 24 Hours (Table) 03/23/21 04:45 Blood Culture - Preliminary Blood No Growth after 120 hours 03/21/21 18:34 Blood Culture - Final Blood No Growth after 144 hours 03/21/21 18:34 Blood Culture - Final Blood No Growth after 144 hours Assessment and Plan Assessment: Acute rhabdomyolysis secondary to forearm injury, and subsequent compartment syndrome, status post fasciotomy, postop day #6. Acute kidney injury, secondary to rhabdomyolysis. ESBL Escherichia coli, urinary tract infection, currently on meropenem. Acute COVID 19 infection, without evidence of pneumonia on chest x-ray. Lactic acidosis, much improved. Acute hyperkalemia, secondary to renal failure. Diabetes mellitus. History of Parkinson's disease. History of chronic and recurrent urinary tract infections. History of diabetic neuropathy. History of Guillain-Hoffman syndrome 2007. Plan: Plan dated 03/28/2021. The patient was in the intensive care unit up until yesterday. He was moved out. Hemodynamically, he is stable. He's not having any respiratory issues. The patient is not on any supplemental oxygen. The patient is not requiring any vasopressor support. The patient's on appropriate antibiotics. We will see the patient moving forward, only as needed. Please feel free to call us back should he require our services again. No additional recommendations are made. Time with Patient: Less than 30
--- NOTE | 2021-03-28 12:01 | CDI ---
Documentation Clarification Form Date: 03/28/2021 11:39:00 AM From: Bushra Hernandez RN, CCDS Admit Date: 03/21/2021 02:50:00 PM Patient Name: Nilay Busby Visit Number: [id number] Discharge Date: ATTENTION: The Clinical Documentation Specialists (CDI) and [facility] Coding Staff appreciate your assistance in clarifying documentation. Please respond to the clarification below the line at the bottom and electronically sign. The CDI & [facility] Coding staff will review the response and follow-up if needed. Please note: Queries are made part of the Legal Health Record. If you have any questions, please contact the author of this message via ITS. Dr. Lalo Paez A sharp debridement using knife of devitalized muscle is documented in the operative note on 01/21/2021. Additional clarification regarding the procedure is requested. History/Risk Factors: Diabetes Mellitus, Gullian-Woodland Syndrome, Parkinsons, Compartment syndrome right forearm Clinical Indicators: 70-year-old male with right forearm compartment syndrome who is post compartment fasciotomies on 03/21/2021. Taken to OR on 03/23 for right forearm 3 compartment debridement and irrigation. Operative note Wounds were visually inspected, and devitalized-appearing muscle on the volar side consisting of superficial flexor capi radialis muscle fibers were debrided as they were dusky in appearance, noncontractile and not bleeding. Muscle was debrided back to bleeding tissue. Treatment: 03/23 debridement and irrigation of wound Application of wound VAC to forearm fasciotomy wounds Please clarify the type of procedure performed: [ X] Excisional debridement (the removal of necrotic, devitalized tissue or slough by means of cutting away of tissue) [ ] Non-excisional debridement (the removal of necrotic, devitalized tissue or slough by means of flushing, brushing, or washing. (Irrigation) [ ] Other; please specify [ ] Unable to determine Five elements required for accurate and compliant documentation of a debridement: Technique used (e.g., excisional, excised, cutting, brushing, jet lavage etc.) Instrument(s) used (e.g., scalpel, curette, etc.) Nature of the tissue removed (e.g., necrotic, devitalized tissues, non-viable tissue, etc.) Appearance and size of the wound (e.g., down to fresh bleeding tissue, 7cm x 10cm, etc.) Depth of the debridement* (e.g., skin, subcutaneous tissue, fascia, muscle, bone, etc.) (Template Last Revised: May 2020) MTDD
--- NOTE | 2021-03-28 12:18 | P.PN ---
Subjective Principal diagnosis: Patient is seen for follow-up for acute kidney injury. His renal function has been slowly improving. Creatinine is down to 4.22 today. Urine output is at 60-75 mL an hour. Patient had surgery for right forearm compartment syndrome and replacement of wound VAC . He had I&D. No significant complaints today trying to increase oral intake. Patient states he is going back for surgery today Objective - Vital Signs Vital signs: Vital Signs Temp 97.4 F L 03/28/21 10:53 Pulse 69 03/28/21 10:53 Resp 15 03/28/21 10:53 BP 118/75 03/28/21 10:53 Pulse Ox 95 03/28/21 10:53 Intake & Output 03/27/21 03/28/21 03/28/21 18:59 06:59 18:59 Intake Total 1155 600 Output Total 515 500 Balance 640 -500 600 Intake: IV 675 600 Sodium Chloride 0.9% 1, 675 600 000 ml @ 75 mls/hr IV . [id number] [facility] Rx#:[id number] Oral 480 Output: Urine 515 500 Other: Voiding Method Indwelling Catheter Indwelling Catheter Indwelling Catheter ABP, PAP, CO, CI - Last Documented Arterial Blood Pressure 114/75 - Exam Patient is awake comfortable alert oriented 3. Not in any acute distress. Examination lower extremities shows edema 1+ bilaterally Abdomen is soft nontender Examination of the right upper extremity shows the arm is swollen currently in wound VAC. Patient is not able to move his fingers much. Lungs and heart are not examined as patient is in isolation for coronavirus. - Labs CBC & Chem 7: 03/28/21 07:58 03/28/21 05:33 Labs: Abnormal Lab Results - Last 24 Hours (Table) 03/27/21 03/27/21 03/27/21 Range/Units 05:48 05:48 16:43 RBC 3.22 L (4.30-5.90) m/uL Hgb 9.9 L (13.0-17.5) gm/dL Hct 30.8 L (39.0-53.0) % Sodium (137-145) mmol/L Chloride (98-107) mmol/L Carbon Dioxide (22-30) mmol/L BUN (9-20) mg/dL Creatinine (0.66-1.25) mg/dL Glucose (74-99) mg/dL POC Glucose (mg/dL) 121 H (75-99) mg/dL Calcium (8.4-10.2) mg/dL AST (17-59) U/L ALT (4-49) U/L Creatine Kinase 53803 H* (55-170) U/L Total Protein (6.3-8.2) g/dL Albumin (3.5-5.0) g/dL 03/27/21 03/28/21 03/28/21 Range/Units 20:36 05:33 07:08 RBC (4.30-5.90) m/uL Hgb (13.0-17.5) gm/dL Hct (39.0-53.0) % Sodium 136 L (137-145) mmol/L Chloride 113 H (98-107) mmol/L Carbon Dioxide 17 L (22-30) mmol/L BUN 68 H (9-20) mg/dL Creatinine 4.22 H (0.66-1.25) mg/dL Glucose 128 H (74-99) mg/dL POC Glucose (mg/dL) 125 H 163 H (75-99) mg/dL Calcium 8.2 L (8.4-10.2) mg/dL AST 570 H (17-59) U/L ALT 90 H (4-49) U/L Creatine Kinase (55-170) U/L Total Protein 4.2 L (6.3-8.2) g/dL Albumin 1.9 L (3.5-5.0) g/dL 03/28/21 03/28/21 Range/Units 07:58 11:40 RBC 3.89 L (4.30-5.90) m/uL Hgb 11.9 L (13.0-17.5) gm/dL Hct 35.9 L (39.0-53.0) % Sodium (137-145) mmol/L Chloride (98-107) mmol/L Carbon Dioxide (22-30) mmol/L BUN (9-20) mg/dL Creatinine (0.66-1.25) mg/dL Glucose (74-99) mg/dL POC Glucose (mg/dL) 153 H (75-99) mg/dL Calcium (8.4-10.2) mg/dL AST (17-59) U/L ALT (4-49) U/L Creatine Kinase (55-170) U/L Total Protein (6.3-8.2) g/dL Albumin (3.5-5.0) g/dL Microbiology - Last 24 Hours (Table) 03/23/21 04:45 Blood Culture - Preliminary Blood No Growth after 120 hours 03/21/21 18:34 Blood Culture - Final Blood No Growth after 144 hours 03/21/21 18:34 Blood Culture - Final Blood No Growth after 144 hours Assessment and Plan Assessment: 1. Acute kidney injury nonoliguric ATN secondary to rhabdomyolysis/CT contrast. Baseline creatinine 1.0 mg/dL. Renal function is slowly improving. Continue with IV fluids. Decrease rate 2. Traumatic rhabdomyolysis with crush injury 3. Compartment syndrome of right arm, status post I&D yesterday 4. Metabolic acidosis associated with acute kidney injury, was improving, IV fluids change to Ringer lactate and add oral sodium bicarb. 5. Hypocalcemia associated with hyperphosphatemia from rhabdo myolysis rule out nutritional vitamin D deficiency 6. COVID-19 infection currently maintained on room air. Chest x-ray shows bilateral mild infiltrates Plan: 1. Decrease IV fluids. 2. Encourage increased oral intake. 3. Replace potassium 4. Continue with IV antibiotics 5. No need for renal replacement therapy. Renal function has been improving 6. Add oral sodium bicarb
--- NOTE | 2021-03-28 12:32 | P.PN ---
Subjective Progress Note Date: 03/28/21 HISTORY OF PRESENT ILLNESS 70 years old male patient of Dr. Pennington with past medical history of Parkinson's, diabetes with diabetic neuropathy, hypothyroidism, calendar in 20 10, chronic back pain with lumbar surgery 25 years ago comes in after he was found pinned in between his bed and the nightstand. Patient stated that he was rolling in his bed when he got stuck. According to the daughter bedside it appears patient has been stuck there for 2 days since he has not taken his medication. Patient was unable to reach anybody. Since nobody heard anything from the patient family called neighbors and friends to check on him. Patient was alert and was found suspended and there in between his bed and nightstand and unable to move himself from this position. Patient was released from his position and brought to the hospital. He is unable to move his right upper e xtremity with significant bruising and ecchymosis involving the forearm and the hand. Patient has no mobility involving his right arm , with contracture involving his hand.. Patient denies dizziness, confusion or recent falls. He states he was doing well and had no fever, chills, polyuria increased frequency or concern for sepsis. He did see a urologist at [facility] for his recurrent UTIs in January and was found to have a urine infection. Patient was admitted in in October for recurrent falls and UTI sepsis with E. coli resistant to fluoroquinolones. Patient is fairly active at baseline and goes to gym 4 times a week. Patient had a detailed workup including MRI, EEG and echocardiogram on his admission in October, echocardiogram suggest moderate concentric left ventricle hypertrophy with EF 55-60% on the valves with mild mitral and tricuspid regurgitation. Right ventricle pressures were less than 35mm. Vitals reviewed patient is afebrile pulse 63 respiratory rate 16 blood pressure 147/99 oxybutynin 95% on room air. Labs reviewed WBC 13.9 hemoglobin 17.4 sodium 136 potassium 6.1 bicarbonate 19 creatinine 1.35 and blood sugar 242 lactic acid 7.1 AST 660 ALT 259 with CK levels [id number] troponin [address] head and cervical spine showed right ICA hyperdense and recommended CT angiography to: For list exclude internal thrombosis no acute intracranial hemorrhage or mass effect degenerative and nonspecific white matter changes most typical remote ischemia slightly gait greater central competent of ventricle dilation can be associated with normal pressure hydrocephalus severe multilevel degenerative disc disease no fracture X-rays humerus was negative for fracture or dislocation. X-ray forearm suggestive no acute fracture diffuse soft tissue edema suggestive of posttraumatic or postinfectious edema shoulder x-ray on the right shows hairline fracture nondisplaced distal right clavicle with soft tissue edema. Chest x-ray with right lower lobe A to lactose is only infiltrated nodular density right lung may be related to superimposed structure short-term follow-up with repeat chest x-ray recommended. EKG suggested normal sinus rhythm with T-wave abnormality noted x-ray hand no fracture or dislocation but patient's patient's were flexed extensive soft tissue swelling noted 03/22: She and has been hypotensive and ordered for 2 more liters of IV fluid bolus. Blood culture and urine culture in progress. Patient has been afebrile, temperature actually on the lower side 96.7-97.5. Heart rate 78, blood pressure 110/71 after fluids, pulse ox 93% on 4 L nasal cannula. Repeat blood work reveals WBC 12.0. Sodium 133, potassium 6.5, chloride 112, CO2 10, BUN 31 and creatinine 2.65. Blood sugars running between 207 and 221. Repeat lactic acid 2.7. CK 60,158. AST 1424, ALT 87. Kayexalate 30 g, calcium gluconate 1 g with 10 units of regular insulin and D50 50 ML's all ordered. Consult added for nephrology. Orthopedics is planning on returning to or tomorrow to remove wound VAC and assess wounds and possible new wound VAC placement, possible closure partial closure of the wounds. Patient also followed by neurology and infectious disease. Patient is currently on 2 g every 12 hours 03/23: Due to worsening renal function and worsening rhabdomyolysis as well as hypotension yesterday, patient was moved into the intensive care unit. His urine output has been 20-30 ML's. He has been continued on IV fluids currently at 150 mL per hour. We will add in fluid bolus of 2 L. Patient has been seen by nephrology and was started on bicarb drip yesterday now discontinued. Continue to assess daily for need for renal replacement therapy. Vascular surgery is following for possible dialysis catheter. No further vascular intervention for the upper extremity at this time. Neurology has no further plans will recommend follow-up with his neurologist and will sign off the case for now. Renal ultrasound revealed suboptimal study without hydronephrosis bilaterally. 03/24 patient examined at bedside. He has no improvement in sensation involving her right upper extremity. He did have an episode last night when he woke up in Panic as patient thought he lost hus arm. He is otherwise alert and answer questions appropriately. Vitals stable hemoglobin stable, calcium is 6.2 creatinine kinase is 39,000 181. IV fluids are running at 1 50 mL per hour urine output approximately 30 ML per hour. 1 L bolus given to the patient 1 calcium 1 g calcium gluconate ordered. Tums Ultra 45 and repeat treatment 3 times a day. Discussed with patient the possible need to be on PTSD reluctant to start at this point medication. 03/25 patient examined at bedside. He is complaining of significant pain in his right arm is otherwise stable patient's to 94% on 2 L. Hemoglobin stable at 10, BUN and creatinine continued to trend up. Urine continues to remain infected. Urine output is 1.4 L in the past 24 hours patient may need dialysis if no improvement in unit urine output is seen. Dilaudid 0.5 mg stat given 03/26: Patient remains in the intensive care unit. Urine culture finalized with 2 E. coli 1 ESBL, currently on meropenem and followed by Dr. Muro. Nephrology has decreased IV fluids to 70 ML's per hour once patient is eating. He is scheduled for another I&D today with orthopedics. He continues to have no movement to the right upper extremity and has slight sensation. Patient has been afebrile, heart rate in the 70s, blood pressure 121/65, pulse ox 94% on room air. Sodium 134, potassium 4, chloride 108, CO2 20, BUN 57 creatinine 4.64. Blood sugars running between 106 and 160. AST 873. 03/27: Patient remains in the intensive care unit but has been downgraded to [facility] without telemetry. Patient underwent I&D irrigation only yesterday with Dr. Paez. Wound VAC is in place and there is a collection of blood within the dressing. Repeat I&D scheduled for tomorrow. Patient is continued on meropenem. Patient is afebrile, heart rate 85, blood pressure 120/92, pulse ox 95% on room air. BUN 60, creatinine 4.47. Capillary blood glucose running between 121 at 201. Urine output is 60-75 mL per hour. Nephrology is not planning on renal replacement. Repeat chest x-ray reveals patchy basilar atelectasis and/or infiltrates persist unchanged. 03/28: [facility] Patient is scheduled for I&D and wound VAC change today in the OR with Dr. Paez today. Patient has very minimal movement to the fingers on the right. PT and OT working with the patient as well. Patient has significant edema to the right shoulder and upper arm, right clavicle area. CBG 123-153. BUN 68 creatinine 4.22. CK from yesterday was 19,643. AST 570, ALT 90. Discharge plan is for [facility]. Patient also had a midline placed yesterday. REVIEW OF SYSTEMS Constitutional: Denies chills, Denies fever, Denies lethargy, Denies malaise, Denies poor appetite, Denies weakness, Denies weight loss Eyes: denies decreased vision, denies diplopia, denies discharge, denies pain Ears: deny: decreased hearing Ears, nose, mouth and throat: Denies dental pain, Denies headache, Denies nasal discharge, Denies nose pain Cardiovascular: Denies chest pain, Denies decreased exercise tolerance, Denies edema, Denies high blood pressure, Denies irregular heart beat, Denies palpitations, Denies paroxysmal nocturnal dyspnea, Denies rapid heart beat, Denies shortness of breath Respiratory: Denies congestion, Denies cough, Denies cough with sputum, Denies dyspnea, Denies home oxygen, Denies wheezing Gastrointestinal: Denies abdominal pain, Denies change in bowel habits, Denies coffee ground emesis, Denies heartburn, Denies hematemesis, Denies hematochezia, Denies loss of appetite, Denies nausea, Denies vomiting Genitourinary: Denies dysuria, Denies flank pain, Denies kidney stones, Denies menorrhagia, Denies urgency, Denies urinary frequency Musculoskeletal: Denies gait dysfunction, Denies limitation of motion, Denies morning stiffness, Denies muscle cramps endorses contracture, swelling, loss of sensation involving right upper extremity Integumentary: Denies rash, Denies wounds, Denies brittle nails, Denies change in hair/nails, Denies darkening of skin Neurological: Denies balance difficulties, no change in speech, Denies double vision, Denies gait dysfunction, Denies loss of vision, Denies numbness, Denies paralysis, induces tingling involving the dorsal aspect of foot Denies seizures Psychiatric: Denies anxiety, Denies depression mild PTSD Endocrine: Denies excessive sweating, Denies excessive thirst, Denies high blood sugars, Denies palpitations Hematologic/Lymphatic: Denies easy bruising, Denies lymphadenopathy PHYSICAL EXAMINATION Gen: This is a 70-year-old male. He is laying in bed and appears to be comfortable and in no acute distress. HEENT: Head is atraumatic, normocephalic. Pupils equal, round. Sclerae is anicteric. NECK: Supple. No JVD. No lymphadenopathy. No thyromegaly. LUNGS: Clear to auscultation. No wheezes or rhonchi. No intercostal retractions. HEART: Regular rate and rhythm. No murmur. ABDOMEN: Soft. Bowel sounds are present. No masses. No tenderness. Gerardo catheter draining clear becki urine. EXTREMITIES: No pedal edema. No calf tenderness. Significant swelling to the right upper shoulder upper arm on the right. Large dressing/wound VAC in place to the right forearm. Patient has very small amount of movement of the fingers. NEUROLOGICAL: Patient is awake, alert and oriented x3. Cranial nerves 2 through 12 are grossly intact. ASSESSMENT AND PLAN 1. Right forearm compartment syndrome -Status post dorsal and volar fasciotomies with Dr. Paez, 03/21. Status post debridement and irrigation on 03/23, Repeat irrigation 03/26. Repeat I&D and wound VAC change scheduled today. PT and OT to follow. Vascular surgery Dr. Gerardo is not planning any further intervention. Acute rhabdomyolysis secondary to injury. Consult with nephrology appreciated. Continue IV fluids at 75 mL per hour - Repeat CK tomorrow -Status post bicarb drip Hypo-calcemia -Status post calcium gluconate, calcium carbonate 500 3 times a day Distal nondisplaced right clavicle fracture Acute COVID19 infection - Continue isolation Acute metabolic encephalopathy secondary to sepsis and acute kidney injury, rhab domyolysis, Dilaudid Consult with neurology appreciated and signed off Stroke is not suspected Vitamin B12 1000 g daily added by neurology Hyperkalemia secondary to Rhabdomyolysis - Consult nephrology appreciated Acute lactic acidosis secondary to hypovolemia - Status post IV fluid bolus - Continue IV fluids at 70 mL/h. Acute kidney injury secondary to rhabdomyolysis secondary to ATN - Continue IV fluids with normal saline at 75 mL per hour - Baseline creatinine 0.8 -Avoid nephrotoxic agent -Hold metformin -Consult nephrology appreciated - No plan for dialysis Acute transaminitis - Liver enzymes have worsened since last admission -Continue perfusion with IV fluids Type II uncontrolled diabetes - Last A1c 7.2 - Hold metformin - Continue insulin sliding Scale and Lantus at 5 units at at bedtime History of UTI, acute ESBL E. coli UTI - Merrem. History of Sepsis secondary to acute urinary tract infection In October 2020 - Unclear if patient fall was a result of confusion. Infectious metabolic encephalopathy - resolved - CT head and neck suggestive of hyperdense involving right carotid. We will evaluate with CT angiogram head and neck.. Also mentioned normal pressure h ydrocephalus on the CAT scan though MRI was negative for hydrocephalus in October Frequent falls possibly related to worsening Parkinson's, exacerbated by sepsis. - Does PT as outpatient. We'll evaluate for rehab once patient is stableDiabetic polyneuropathy. - Lyrica 150 mg twice daily Parkinson's. -Continue Sinemet 251 101-1/2 3 times daily. Hypothyroidism. -Continue levothyroxine 150 mcg daily. Guillain-[place] syndrome in 2007. Benign prostatic hypertrophy. -Continue Flomax or 0.4 mg daily. GI prophylaxis. Protonix. DVT prophylaxis. Heparin subcu. DISCHARGE PLAN Subacute rehab at [facility] . PT and OT consults. Impression and plan of care have been directed as dictated by the signing physician. Sophie Hitchcock nurse practitioner acting as scribe for signing physician. Objective - Vital Signs Vital signs: Vital Signs Temp 98.6 F 03/28/21 10:28 Pulse 88 03/28/21 10:28 Resp 18 03/28/21 10:28 BP 118/82 03/28/21 10:28 Pulse Ox 92 L 03/28/21 10:28 Intake & Output 03/27/21 03/28/21 03/28/21 18:59 06:59 18:59 Intake Total 1155 Output Total 515 500 Balance 640 -500 Intake: IV 675 Sodium Chloride 0.9% 1, 675 000 ml @ 75 mls/hr IV . [id number] [facility] Rx#:[id number] Oral 480 Output: Urine 515 500 Other: Voiding Method Indwelling Catheter Indwelling Catheter ABP, PAP, CO, CI - Last Documented Arterial Blood Pressure 114/75 - Labs CBC & Chem 7: 03/28/21 07:58 03/28/21 05:33 Labs: Abnormal Lab Results - Last 24 Hours (Table) 03/27/21 03/27/21 03/27/21 Range/Units 05:48 05:48 11:49 RBC 3.22 L (4.30-5.90) m/uL Hgb 9.9 L (13.0-17.5) gm/dL Hct 30.8 L (39.0-53.0) % Sodium (137-145) mmol/L Chloride (98-107) mmol/L Carbon Dioxide (22-30) mmol/L BUN (9-20) mg/dL Creatinine (0.66-1.25) mg/dL Glucose (74-99) mg/dL POC Glucose (mg/dL) 201 H (75-99) mg/dL Calcium (8.4-10.2) mg/dL AST (17-59) U/L ALT (4-49) U/L Creatine Kinase 72830 H* (55-170) U/L Total Protein (6.3-8.2) g/dL Albumin (3.5-5.0) g/dL 03/27/21 03/27/21 03/28/21 Range/Units 16:43 20:36 05:33 RBC (4.30-5.90) m/uL Hgb (13.0-17.5) gm/dL Hct (39.0-53.0) % Sodium 136 L (137-145) mmol/L Chloride 113 H (98-107) mmol/L Carbon Dioxide 17 L (22-30) mmol/L BUN 68 H (9-20) mg/dL Creatinine 4.22 H (0.66-1.25) mg/dL Glucose 128 H (74-99) mg/dL POC Glucose (mg/dL) 121 H 125 H (75-99) mg/dL Calcium 8.2 L (8.4-10.2) mg/dL AST 570 H (17-59) U/L ALT 90 H (4-49) U/L Creatine Kinase (55-170) U/L Total Protein 4.2 L (6.3-8.2) g/dL Albumin 1.9 L (3.5-5.0) g/dL 03/28/21 03/28/21 Range/Units 07:08 07:58 RBC 3.89 L (4.30-5.90) m/uL Hgb 11.9 L (13.0-17.5) gm/dL Hct 35.9 L (39.0-53.0) % Sodium (137-145) mmol/L Chloride (98-107) mmol/L Carbon Dioxide (22-30) mmol/L BUN (9-20) mg/dL Creatinine (0.66-1.25) mg/dL Glucose (74-99) mg/dL POC Glucose (mg/dL) 163 H (75-99) mg/dL Calcium (8.4-10.2) mg/dL AST (17-59) U/L ALT (4-49) U/L Creatine Kinase (55-170) U/L Total Protein (6.3-8.2) g/dL Albumin (3.5-5.0) g/dL Microbiology - Last 24 Hours (Table) 03/23/21 04:45 Blood Culture - Preliminary Blood No Growth after 120 hours 03/21/21 18:34 Blood Culture - Final Blood No Growth after 144 hours 03/21/21 18:34 Blood Culture - Final Blood No Growth after 144 hours
[2021-03-28] MEDS ORDERED: PROPOFOL 10 MG/ML 20 ML VIAL IV ONE (13:51)
[2021-03-28] MEDS ORDERED: MIDAZOLAM 2 MG/2 ML VIAL ONE (13:51)
[2021-03-28] MEDS ORDERED: SUCCINYLCHOLINE CHLORIDE VIAL 200 MG/10 ML VIAL IV ONE (13:51)
[2021-03-28] MEDS ORDERED: PHENYLEPHRINE-0.9% NACL SYG 1,000 MCG/10 ML SYRINGE ONE (13:51)
[2021-03-28] MEDS ORDERED: ePHEDrine 50 MG/ML 1 ML AMP ONE (13:51)
[2021-03-28] MEDS ORDERED: fentaNYL (PF) 50 MCG/ML 2 ML AMP ONE (13:51)
[2021-03-28] MEDS ORDERED: LIDOCAINE 1% INJ 10MG/ML (20 ML MDV) ONE (13:51)
[2021-03-28] MEDS ORDERED: IV FLUID CONTINUATION 1,000 ML IV ONE (13:51)
[2021-03-28 14:19] VITALS: BMI 39.0
[2021-03-28] MEDS ORDERED: ceFAZolin 1,000 MG in SODIUM CHLORIDE 0.9% 1,000 ML IRRIGATION ONE (14:30)
--- NOTE | 2021-03-28 15:21 | P.OP ---
Date of Procedure: 03/28/21 Procedure(s) Performed: PREOPERATIVE DIAGNOSES: 1. Right forearm compartment syndrome status post compartment fasciotomies POSTOPERATIVE DIAGNOSES: 1. Right forearm compartment syndrome status post compartment fasciotomies PROCEDURES PERFORMED: 1. Right forearm 3 compartment irrigation 2. Closure dorsal fasciotomy wound--simple 20 cm 3. Application of Prevena wound VAC (negative pressure wound dressing) to dorsal forearm fasciotomy wound 3. Application of regular wound VAC (negative pressure wound dressing) to volar forearm fasciotomy wound 4. Elastic retention banding volar wound ANESTHESIA: Gen. ROUGHER MACHINE OPERATOR: none COMPLICATIONS: None ESTIMATED BLOOD LOSS: 5 mL. DISPOSITION: To post-anesthesia care unit INDICATIONS: Nilay is a 70-year-old male who previously had forearm compartment fasciotomies performed one week ago on Friday who returns today for debridement irrigation and possible closure of fasciotomies. His status is guarded as he has increased creatinine due to rhabdomyolysis but has maintained what appears to be adequate blood supply to the hand with palpable and dopplerable radial pulses. His rhabdomyolysis is starting to resolve and his creatinine is improving. He is currently in the ICU. I described the steps of the operation and potential risks and complications as being inclusive of, but not limited to: Bleeding, infection, scarring, discomfort, blood vessel and/or nerve damage, need for skin grafting, persistent pain, ischemic contracture, stiffness of elbow wrist and/or fingers, weakness, permanent nerve damage, , loss of limb, and other risks. The patient is aware of these risks and wishes to proceed with surgery. The consent form has been signed. PROCEDURE: After appropriate consent was obtained, the patient was taken to the operating room placed in the supine position. General anesthesia was initiated, and after confirmation of adequate anesthesia, the patient was carefully positioned. Care was taken to make sure that all pressure points were adequately padded. Prepping and draping were completed in the usual aseptic fashion using ChloraPrep. Timeout was called, confirming patient identity, side, procedure, and administration of antibiotics. No tourniquet was used. Wounds were visually inspected, and devitalized-appearing muscle on the volar side consisting of superficial flexor carpi radialis muscle fibers were debrided as they were dusky in appearance, noncontractile and not bleeding. Muscle was debrided back to bleeding tissue. Elsewhere, muscle appeared relatively healthy with bleeding, contractile under interrogation with Bovie, and of satisfactory consistency. Intraoperative Doppler was performed on both the brachial artery and the radial artery both were found to be normal and both pulses were palpable. Thorough irrigation of the wound on both sides was performed using pulsatile lavage. The amount of swelling of the muscles was considerable still on the volar side and no closure of this wound could be contemplated at this time. However, the dorsal compartment appeared loose and the wound appeared amenable to attempted closure. Using 3-0 nylon suture, interrupted simple closure sutures were performed and complete closure of this wound was easily accomplished with no need for skin tensioning methods to assist in closure. Thereafter, a Prevena wound vac was placed over this wound. A large wound VAC was applied to the volar wound. Adequate seal was confirmed for both wounds. Radial pulse 2+, ulnar pulse 2+ and brachial pulse 2+ at the conclusion of the case. Fingers were pink with capillary refill approximately 2 seconds. Patient tolerated the procedure well and taken to recovery room in stable condition.
[2021-03-28 16:40] LABS: Glucose,Whole Blood 141 mg/dL (75-99)
[2021-03-28] MEDS: SODIUM BICARBONATE TAB 650 MG TAB PO SCH (20:08)
[2021-03-28] MEDS: ACETAMINOPHEN TAB 325 MG TAB PO PRN (20:18)
[2021-03-28 21:09] LABS: Glucose,Whole Blood 122 mg/dL (75-99)
[2021-03-28] MEDS: INSULIN DETEMIR (LEVEMIR) 100 UNIT/ML SYR SQ SCH (21:10)
[2021-03-29] MEDS: LEVOTHYROXINE 75 MCG TAB PO SCH (05:23)
[2021-03-29] MEDS: MEROPENEM 1 GM in SODIUM CHLORIDE 0.9% 100 ML IVPB SCH ×2 (05:23→16:15)
[2021-03-29] MEDS: LACTATED RINGERS 1,000 ML IV SCH ×2 (06:08→20:55)
[2021-03-29 06:13] LABS: HCT 31.6 % (39.0-53.0); HGB 10.5 gm/dL (13.0-17.5); MCH 31.3 pg (25.0-35.0); MCHC 33.2 g/dL (31.0-37.0); MCV 94.1 fL (80.0-100.0); Mean Platelet Volume 9.4; Platelet Count 184 k/uL (150-450); RBC 3.36 m/uL (4.30-5.90); RDW 15.1 % (11.5-15.5); WBC 6.4 k/uL (3.8-10.6)
[2021-03-29 07:18] LABS: Glucose,Whole Blood 132 mg/dL (75-99)
[2021-03-29] MEDS: CYANOCOBALAMIN 500 MCG TAB PO SCH (07:51)
[2021-03-29] MEDS: HEPARIN SODIUM,PORCINE/PF 5,000 UNIT/0.5 ML SYRINGE SQ SCH ×2 (07:51→20:56)
[2021-03-29] MEDS: PREGABALIN 75 MG CAP PO SCH ×3 (07:51→20:56)
[2021-03-29] MEDS: CALCIUM CARBONATE 500 MG CHEWABLE PO SCH ×3 (07:51→20:56)
[2021-03-29] MEDS: INSULIN ASPART (NovoLOG) 100 UNIT/ML VIAL SQ SCH ×4 (07:51→20:57)
[2021-03-29] MEDS: ASCORBIC ACID 500 MG TAB PO SCH (07:51)
[2021-03-29] MEDS: CARBIDOPA-LEVODOPA 25-100 MG 1 EACH TAB PO SCH ×3 (07:52→20:56)
[2021-03-29] MEDS: SODIUM BICARBONATE TAB 650 MG TAB PO SCH ×2 (07:52→20:56)
[2021-03-29] MEDS: TAMSULOSIN 0.4 MG CAP.ER.24H PO SCH (07:52)
[2021-03-29] MEDS: MULTIVITAMINS, THERA 1 EACH TAB PO SCH (07:52)
[2021-03-29] MEDS: ZINC SULFATE 220 MG CAP PO SCH (07:52)
[2021-03-29] MEDS ORDERED: LACTATED RINGERS 1,000 ML IV SCH (08:34)
--- NOTE | 2021-03-29 10:01 | P.PN ---
Subjective Progress Note Date: 03/29/21 Principal diagnosis: Compartment syndrome right forearm. Status post Dorsal and volar fasciotomy Right forearm. Multiple medical comorbidities. This is a 70-year-old male who is admitted and being managed for compartment syndrome. Patient is status post irrigation of the right forearm compartment fasciotomy wounds and replacement of the wound vac by Dr. Paez. This is postoperative day #1 from the most recent irrigation and debridement and wound VAC placement and patient is seen and evaluated at bedside today. He has no new complaints or concerns today. Vital signs are stable. CK is improving. Objective - Vital Signs Vital signs: Vital Signs Temp 99.1 F 03/29/21 05:25 Pulse 85 03/29/21 05:25 Resp 15 03/29/21 05:25 BP 142/72 03/29/21 05:25 Pulse Ox 99 03/29/21 05:25 Intake & Output 03/28/21 03/29/21 03/29/21 18:59 06:59 18:59 Intake Total 1101 Output Total 205 550 Balance 896 -550 Weight 127 kg Intake: IV 1101 Sodium Chloride 0.9% 1, 600 000 ml @ 75 mls/hr IV . [id number] [facility] Rx#:[id number] Output: Urine 200 550 Estimated Blood Loss 5 Other: Voiding Method Indwelling Catheter Indwelling Catheter # Bowel Movements 1 ABP, PAP, CO, CI - Last Documented Arterial Blood Pressure 114/75 - Exam This is a pleasant 70-year-old male in no acute distress. He is alert and oriented at this time. Exam of the right upper extremity reveals mild tenderness to the distal clavicle. There is some swelling to the upper extremity but compartments feel soft. The forearm has prevena wound vac in place in the dorsal forearm and a wound vac in place on the volar forearm. I am able to palpate a weak radial pulse. Palpation of the pulse may be hindered by the drapes. He is unable to actively move fingers. Capillary refill is less than 3 seconds to all fingers. - Labs CBC & Chem 7: 03/29/21 05:27 03/28/21 05:33 Labs: Abnormal Lab Results - Last 24 Hours (Table) 03/28/21 03/28/21 03/28/21 Range/Units 05:33 07:58 11:40 RBC 3.89 L (4.30-5.90) m/uL Hgb 11.9 L (13.0-17.5) gm/dL Hct 35.9 L (39.0-53.0) % POC Glucose (mg/dL) 153 H (75-99) mg/dL Creatine Kinase (55-170) U/L Vitamin D 25-Hydroxy 26.3 L (30.0-100.0) ng/mL 03/28/21 03/28/21 03/29/21 Range/Units 16:39 21:07 05:27 RBC 3.36 L (4.30-5.90) m/uL Hgb 10.5 L (13.0-17.5) gm/dL Hct 31.6 L (39.0-53.0) % POC Glucose (mg/dL) 141 H 122 H (75-99) mg/dL Creatine Kinase (55-170) U/L Vitamin D 25-Hydroxy (30.0-100.0) ng/mL 03/29/21 03/29/21 Range/Units 05:27 07:16 RBC (4.30-5.90) m/uL Hgb (13.0-17.5) gm/dL Hct (39.0-53.0) % POC Glucose (mg/dL) 132 H (75-99) mg/dL Creatine Kinase 5896 H* (55-170) U/L Vitamin D 25-Hydroxy (30.0-100.0) ng/mL Microbiology - Last 24 Hours (Table) 03/23/21 04:45 Blood Culture - Final Blood No Growth after 144 hours Assessment and Plan (1) MINI (acute kidney injury) Current Visit: Yes Status: Acute Code(s): N17.9 - ACUTE KIDNEY FAILURE, UNSPECIFIED SNOMED Code(s): 06845752 (2) Compartment syndrome of right upper extremity Current Visit: Yes Status: Acute Code(s): T79.A11A - TRAUMATIC COMPARTMENT SYNDROME OF R UP EXTREM, INIT SNOMED Code(s): 429729077 (3) Compression neuropathy of right upper extremity Current Visit: Yes Status: Acute Code(s): G56.91 - UNSPECIFIED M ONONEUROPATHY OF RIGHT UPPER LIMB SNOMED Code(s): 092194569 (4) Fall Current Visit: Yes Status: Acute Code(s): W19.XXXA - UNSPECIFIED FALL, INITIAL ENCOUNTER SNOMED Code(s): 4126968 (5) Lactic acidosis Current Visit: Yes Status: Acute Code(s): E87.2 - ACIDOSIS SNOMED Code(s): 58177088 (6) Urinary tract infection Current Visit: No Status: Acute Code(s): N39.0 - URINARY TRACT INFECTION, SITE NOT SPECIFIED SNOMED Code(s): 51197252 Plan: The clinical findings are discussed with the patient and nursing staff. We are planning repeat irrigation and debridement and wound VAC change on Friday. He will be on a Friday, , Friday rotation for wound VAC change per the wound care team. I have ordered a volar splint to keep his wrist and fingers in extension. Continue current care.
[2021-03-29 10:30] LABS: African American GFR (CKD) 16 (>60 ml/min/1.73 sqM); Anion Gap 8 mmol/L; Blood Urea Nitrogen 75 mg/dL (9-20); Calcium 8.7 mg/dL (8.4-10.2); Carbon Dioxide 15 mmol/L (22-30); Chloride 115 mmol/L (98-107); Glucose 119 mg/dL (74-99); Non-African American GFR(CKD) 14 (>60 ml/min/1.73 sqM); Potassium 4.3 mmol/L (3.5-5.1); Sodium 138 mmol/L (137-145)
[2021-03-29 11:54] LABS: Glucose,Whole Blood 169 mg/dL (75-99)
--- NOTE | 2021-03-29 12:12 | P.CONS ---
History of Present Illness - Reason for Consult Consult date: 03/29/21 - History of Present Illness This is a 70-year-old patient being seen for wound VAC management. Patient is scheduled to have a fasciotomy on 131. At this time patient has a negative pressure wound VAC in place and to probing wound vacs in place. Patient has significant amount of drainage from the wound VAC. He also has edema noted to the right upper extremity. At this time any recommendations will be held off until prior to discharge. Review Of Systems: Constitutional: No fever, no chills, no night sweats. No weight change. No weakness, fatigue or lethargy. No daytime sleepiness. Integumentary:reports wounds, no lesions. No rash or pruritus. No unusual bruising. No change in hair or nails. Physical exam: General Appearance: Alert, cooperative, no distress, appears stated age. Skin: See HPI all other Skin color, texture, tugor normal, no rashes or lesions. Neurologic: Alert oriented x3 Assessment: 1. Nonhealing ulceration to the right upper extremity multiple locations Plan: 1. Continue with negative pressure wound VAC as directed by orthopedics. We'll make recommendations prior to discharge if needed. We will be happy to see him in outpatient setting to help manage wound VAC and wound healing. Thank you for the consultation any questions was contact the wound care center DNP note has been reviewed and discussed with Dr. Ferrara and the impression and plan of care has been directed as dictated. Past Medical History Past Medical History: Diabetes Mellitus Additional Past Medical History / Comment(s): guillian-barre syndrome, parkinsons, rt. shoulder rotator cuff repair, lasic eye surgery, L4-L5 laporoscopy History of Any Multi-Drug Resistant Organisms: ESBL Year Discovered:: 03/22/21 ESBL E.coli MDRO Source:: ESBL-Urine Past Surgical History: Back Surgery Past Psychological History: No Psychological Hx Reported Smoking Status: Never smoker Past Alcohol Use History: None Reported Past Drug Use History: None Reported Medications and Allergies Home Medications Medication Instructions Recorded Confirmed Type Aspirin EC [Ecotrin Low Dose] 81 mg PO DAILY 10/01/20 03/21/21 History Carbidopa-Levodopa 25-100 mg 1.5 tab PO TID 10/01/20 03/21/21 History [Sinemet 25-100 mg] Levothyroxine Sodium [Synthroid] 150 mcg PO DAILY 10/01/20 03/21/21 History Multivitamins, Thera [Multivitamin 1 tab PO DAILY 10/01/20 03/21/21 History (formulary)] Pregabalin [Lyrica] 150 mg PO TID 10/01/20 03/21/21 History Tamsulosin HCl [Flomax] 0.4 mg PO DAILY 10/01/20 03/21/21 History metFORMIN HCL [Glucophage] 1,000 mg PO BID 10/01/20 03/21/21 History Allergies Allergy/AdvReac Type Severity Reaction Status Date / Time Sulfa (Sulfonamide Allergy Unknown Verified 03/21/21 15:47 Antibiotics) Physical Exam Vitals: Vital Signs Temp Pulse Resp BP Pulse Ox 03/29/21 10:00 99.0 F 94 15 122/68 97 03/29/21 05:25 99.1 F 85 15 142/72 99 03/29/21 02:49 97.8 F 89 15 128/77 99 03/28/21 22:03 98.0 F 94 19 109/66 97 03/28/21 18:15 97.7 F 69 16 138/74 97 03/28/21 17:08 100 114/82 92 L 03/28/21 16:38 97 133/85 94 L 03/28/21 16:25 97 125/68 94 L 03/28/21 15:07 98.1 F 78 18 118/74 94 L 03/28/21 14:06 97.6 F 99 18 115/82 99 03/28/21 14:00 98.1 F 78 18 118/74 94 L Intake and Output 03/28/21 03/29/21 03/29/21 22:59 06:59 14:59 Output Total 5 550 Balance -5 -550 Output: Urine 550 Estimated Blood Loss 5 Other: Voiding Method Indwelling Catheter # Bowel Movements 1 Results CBC & Chem 7: 03/29/21 05:27 03/29/21 05:27 Labs: Abnormal Lab Results - Last 24 Hours (Table) 03/28/21 03/28/21 03/28/21 Range/Units 05:33 16:39 21:07 RBC (4.30-5.90) m/uL Hgb (13.0-17.5) gm/dL Hct (39.0-53.0) % Chloride (98-107) mmol/L Carbon Dioxide (22-30) mmol/L BUN (9-20) mg/dL Creatinine (0.66-1.25) mg/dL Glucose (74-99) mg/dL POC Glucose (mg/dL) 141 H 122 H (75-99) mg/dL Creatine Kinase (55-170) U/L Vitamin D 25-Hydroxy 26.3 L (30.0-100.0) ng/mL 03/29/21 03/29/21 03/29/21 Range/Units 05:27 05:27 05:27 RBC 3.36 L (4.30-5.90) m/uL Hgb 10.5 L (13.0-17.5) gm/dL Hct 31.6 L (39.0-53.0) % Chloride 115 H (98-107) mmol/L Carbon Dioxide 15 L (22-30) mmol/L BUN 75 H (9-20) mg/dL Creatinine 4.17 H (0.66-1.25) mg/dL Glucose 119 H (74-99) mg/dL POC Glucose (mg/dL) (75-99) mg/dL Creatine Kinase 5896 H* (55-170) U/L Vitamin D 25-Hydroxy (30.0-100.0) ng/mL 03/29/21 03/29/21 Range/Units 07:16 11:53 RBC (4.30-5.90) m/uL Hgb (13.0-17.5) gm/dL Hct (39.0-53.0) % Chloride (98-107) mmol/L Carbon Dioxide (22-30) mmol/L BUN (9-20) mg/dL Creatinine (0.66-1.25) mg/dL Glucose (74-99) mg/dL POC Glucose (mg/dL) 132 H 169 H (75-99) mg/dL Creatine Kinase (55-170) U/L Vitamin D 25-Hydroxy (30.0-100.0) ng/mL Microbiology - Last 24 Hours (Table) 03/23/21 04:45 Blood Culture - Final Blood No Growth after 144 hours Assessment and Plan (1) Non-pressure chronic ulcer of skin of other sites with fat layer exposed Current Visit: Yes Status: Acute Code(s): L98.492 - NON-PRS CHRONIC ULCER OF SKIN OF SITES W FAT LAYER EXPOSED SNOMED Code(s): 87330310 (2) Compartment syndrome of right upper extremity Current Visit: Yes Status: Acute Code(s): T79.A11A - TRAUMATIC COMPARTMENT SYNDROME OF R UP EXTREM, INIT SNOMED Code(s): 314721492
--- NOTE | 2021-03-29 12:18 | P.PN ---
Subjective Principal diagnosis: Patient is seen for follow-up for acute kidney injury. His renal function has been slowly improving. Creatinine is down to 4.22 yesterday. Urine output is at 1 L for 24 hours yesterday Patient had surgery for right forearm compartment syndrome and replacement of wound VAC . He has had I&D. Arm looks better today No significant complaints today trying to increase oral intake. Objective - Vital Signs Vital signs: Vital Signs Temp 99.0 F 03/29/21 10:00 Pulse 94 03/29/21 10:00 Resp 15 03/29/21 10:00 BP 122/68 03/29/21 10:00 Pulse Ox 97 03/29/21 10:00 Intake & Output 03/28/21 03/29/21 03/29/21 18:59 06:59 18:59 Intake Total 1101 Output Total 205 550 Balance 896 -550 Weight 127 kg Intake: IV 1101 Sodium Chloride 0.9% 1, 600 000 ml @ 75 mls/hr IV . [id number] ANABEL Rx#:[id number] Output: Urine 200 550 Estimated Blood Loss 5 Other: Voiding Method Indwelling Catheter Indwelling Catheter # Bowel Movements 1 ABP, PAP, CO, CI - Last Documented Arterial Blood Pressure 114/75 - Exam Patient is awake comfortable alert oriented 3. Not in any acute distress. Examination lower extremities shows edema 1+ bilaterally Abdomen is soft nontender Examination of the right upper extremity shows the arm is swollen currently in wound VAC. Patient is not able to move his fingers much. Lungs and heart are not examined as patient is in isolation for coronavirus. - Labs CBC & Chem 7: 03/29/21 05:27 03/29/21 05:27 Labs: Abnormal Lab Results - Last 24 Hours (Table) 03/28/21 03/28/21 03/28/21 Range/Units 05:33 16:39 21:07 RBC (4.30-5.90) m/uL Hgb (13.0-17.5) gm/dL Hct (39.0-53.0) % Chloride (98-107) mmol/L Carbon Dioxide (22-30) mmol/L BUN (9-20) mg/dL Creatinine (0.66-1.25) mg/dL Glucose (74-99) mg/dL POC Glucose (mg/dL) 141 H 122 H (75-99) mg/dL Creatine Kinase (55-170) U/L Vitamin D 25-Hydroxy 26.3 L (30.0-100.0) ng/mL 03/29/21 03/29/21 03/29/21 Range/Units 05:27 05:27 05:27 RBC 3.36 L (4.30-5.90) m/uL Hgb 10.5 L (13.0-17.5) gm/dL Hct 31.6 L (39.0-53.0) % Chloride 115 H (98-107) mmol/L Carbon Dioxide 15 L (22-30) mmol/L BUN 75 H (9-20) mg/dL Creatinine 4.17 H (0.66-1.25) mg/dL Glucose 119 H (74-99) mg/dL POC Glucose (mg/dL) (75-99) mg/dL Creatine Kinase 5896 H* (55-170) U/L Vitamin D 25-Hydroxy (30.0-100.0) ng/mL 03/29/21 03/29/21 Range/Units 07:16 11:53 RBC (4.30-5.90) m/uL Hgb (13.0-17.5) gm/dL Hct (39.0-53.0) % Chloride (98-107) mmol/L Carbon Dioxide (22-30) mmol/L BUN (9-20) mg/dL Creatinine (0.66-1.25) mg/dL Glucose (74-99) mg/dL POC Glucose (mg/dL) 132 H 169 H (75-99) mg/dL Creatine Kinase (55-170) U/L Vitamin D 25-Hydroxy (30.0-100.0) ng/mL Microbiology - Last 24 Hours (Table) 03/23/21 04:45 Blood Culture - Final Blood No Growth after 144 hours Assessment and Plan Assessment: 1. Acute kidney injury nonoliguric ATN secondary to rhabdomyolysis/CT contrast. Baseline creatinine 1.0 mg/dL. Renal function is slowly improving. Continue with IV fluids. Decrease rate 2. Traumatic rhabdomyolysis with crush injury 3. Compartment syndrome of right arm, status post I&D and wound VAC with replacement of wound VAC yesterday with improvement in the right arm 4. Metabolic acidosis associated with acute kidney injury, was improving, IV fluids change to Ringer lactate and add oral sodium bicarb. 5. Hypocalcemia associated with hyperphosphatemia from rhabdo myolysis rule out nutritional vitamin D deficiency 6. COVID-19 infection currently maintained on room air. Chest x-ray shows b ilateral mild infiltrates Plan: 1. Continue IV fluids. 2. Encourage increased oral intake. 3. Replace potassium 4. Continue with IV antibiotics 5. No need for renal replacement therapy. Renal function has been improving 6. Add oral sodium bicarb
--- NOTE | 2021-03-29 13:30 | P.PN ---
Subjective Progress Note Date: 03/29/21 HISTORY OF PRESENT ILLNESS 70 years old male patient of Dr. Pennington with past medical history of Parkinson's, diabetes with diabetic neuropathy, hypothyroidism, calendar in 20 10, chronic back pain with lumbar surgery 25 years ago comes in after he was found pinned in between his bed and the nightstand. Patient stated that he was rolling in his bed when he got stuck. According to the daughter bedside it appears patient has been stuck there for 2 days since he has not taken his medication. Patient was unable to reach anybody. Since nobody heard anything from the patient family called neighbors and friends to check on him. Patient was alert and was found suspended and there in between his bed and nightstand and unable to move himself from this position. Patient was released from his position and brought to the hospital. He is unable to move his right upper e xtremity with significant bruising and ecchymosis involving the forearm and the hand. Patient has no mobility involving his right arm , with contracture involving his hand.. Patient denies dizziness, confusion or recent falls. He states he was doing well and had no fever, chills, polyuria increased frequency or concern for sepsis. He did see a urologist at [facility] for his recurrent UTIs in January and was found to have a urine infection. Patient was admitted in in October for recurrent falls and UTI sepsis with E. coli resistant to fluoroquinolones. Patient is fairly active at baseline and goes to gym 4 times a week. Patient had a detailed workup including MRI, EEG and echocardiogram on his admission in October, echocardiogram suggest moderate concentric left ventricle hypertrophy with EF 55-60% on the valves with mild mitral and tricuspid regurgitation. Right ventricle pressures were less than 35mm. Vitals reviewed patient is afebrile pulse 63 respiratory rate 16 blood pressure 147/99 oxybutynin 95% on room air. Labs reviewed WBC 13.9 hemoglobin 17.4 sodium 136 potassium 6.1 bicarbonate 19 creatinine 1.35 and blood sugar 242 lactic acid 7.1 AST 660 ALT 259 with CK levels [id number] troponin [address] head and cervical spine showed right ICA hyperdense and recommended CT angiography to: For list exclude internal thrombosis no acute intracranial hemorrhage or mass effect degenerative and nonspecific white matter changes most typical remote ischemia slightly gait greater central competent of ventricle dilation can be associated with normal pressure hydrocephalus severe multilevel degenerative disc disease no fracture X-rays humerus was negative for fracture or dislocation. X-ray forearm suggestive no acute fracture diffuse soft tissue edema suggestive of posttraumatic or postinfectious edema shoulder x-ray on the right shows hairline fracture nondisplaced distal right clavicle with soft tissue edema. Chest x-ray with right lower lobe A to lactose is only infiltrated nodular density right lung may be related to superimposed structure short-term follow-up with repeat chest x-ray recommended. EKG suggested normal sinus rhythm with T-wave abnormality noted x-ray hand no fracture or dislocation but patient's patient's were flexed extensive soft tissue swelling noted 03/22: She and has been hypotensive and ordered for 2 more liters of IV fluid bolus. Blood culture and urine culture in progress. Patient has been afebrile, temperature actually on the lower side 96.7-97.5. Heart rate 78, blood pressure 110/71 after fluids, pulse ox 93% on 4 L nasal cannula. Repeat blood work reveals WBC 12.0. Sodium 133, potassium 6.5, chloride 112, CO2 10, BUN 31 and creatinine 2.65. Blood sugars running between 207 and 221. Repeat lactic acid 2.7. CK 60,158. AST 1424, ALT 87. Kayexalate 30 g, calcium gluconate 1 g with 10 units of regular insulin and D50 50 ML's all ordered. Consult added for nephrology. Orthopedics is planning on returning to or tomorrow to remove wound VAC and assess wounds and possible new wound VAC placement, possible closure partial closure of the wounds. Patient also followed by neurology and infectious disease. Patient is currently on 2 g every 12 hours 03/23: Due to worsening renal function and worsening rhabdomyolysis as well as hypotension yesterday, patient was moved into the intensive care unit. His urine output has been 20-30 ML's. He has been continued on IV fluids currently at 150 mL per hour. We will add in fluid bolus of 2 L. Patient has been seen by nephrology and was started on bicarb drip yesterday now discontinued. Continue to assess daily for need for renal replacement therapy. Vascular surgery is following for possible dialysis catheter. No further vascular intervention for the upper extremity at this time. Neurology has no further plans will recommend follow-up with his neurologist and will sign off the case for now. Renal ultrasound revealed suboptimal study without hydronephrosis bilaterally. 03/24 patient examined at bedside. He has no improvement in sensation involving her right upper extremity. He did have an episode last night when he woke up in Panic as patient thought he lost hus arm. He is otherwise alert and answer questions appropriately. Vitals stable hemoglobin stable, calcium is 6.2 creatinine kinase is 39,000 181. IV fluids are running at 1 50 mL per hour urine output approximately 30 ML per hour. 1 L bolus given to the patient 1 calcium 1 g calcium gluconate ordered. Tums Ultra 45 and repeat treatment 3 times a day. Discussed with patient the possible need to be on PTSD reluctant to start at this point medication. 03/25 patient examined at bedside. He is complaining of significant pain in his right arm is otherwise stable patient's to 94% on 2 L. Hemoglobin stable at 10, BUN and creatinine continued to trend up. Urine continues to remain infected. Urine output is 1.4 L in the past 24 hours patient may need dialysis if no improvement in unit urine output is seen. Dilaudid 0.5 mg stat given 03/26: Patient remains in the intensive care unit. Urine culture finalized with 2 E. coli 1 ESBL, currently on meropenem and followed by Dr. Muro. Nephrology has decreased IV fluids to 70 ML's per hour once patient is eating. He is scheduled for another I&D today with orthopedics. He continues to have no movement to the right upper extremity and has slight sensation. Patient has been afebrile, heart rate in the 70s, blood pressure 121/65, pulse ox 94% on room air. Sodium 134, potassium 4, chloride 108, CO2 20, BUN 57 creatinine 4.64. Blood sugars running between 106 and 160. AST 873. 03/27: Patient remains in the intensive care unit but has been downgraded to [facility] without telemetry. Patient underwent I&D irrigation only yesterday with Dr. Paez. Wound VAC is in place and there is a collection of blood within the dressing. Repeat I&D scheduled for tomorrow. Patient is continued on meropenem. Patient is afebrile, heart rate 85, blood pressure 120/92, pulse ox 95% on room air. BUN 60, creatinine 4.47. Capillary blood glucose running between 121 at 201. Urine output is 60-75 mL per hour. Nephrology is not planning on renal replacement. Repeat chest x-ray reveals patchy basilar atelectasis and/or infiltrates persist unchanged. 03/28: [facility] Patient is scheduled for I&D and wound VAC change today in the OR with Dr. Paez today. Patient has very minimal movement to the fingers on the right. PT and OT working with the patient as well. Patient has significant edema to the right shoulder and upper arm, right clavicle area. CBG 123-153. BUN 68 creatinine 4.22. CK from yesterday was 19,643. AST 570, ALT 90. [facility] Patient also had a midline placed yesterday. 03/29: Wound VAC remains in place to the right arm, has slightly less edema and slight movement of his right hand. Patient also noted to have a large right flank hematoma and ecchymosis. Gerardo catheter remains in place. Repeat creatinine is 4.17 and BUN 75, CO2 15. Blood sugar 119. CBGs are running between 120 269. Repeat CK is down to 5896. Patient is currently on LR at 50 ML's per hour, and started on sodium bicarb, continued on meropenem. Patient has been seen by the wound care team with plan to follow-up in the wound healing Center at discharge. Orthopedics is planning for repeat irrigation and a bright red wound VAC change on Friday. For splint has been ordered for his right wrist and fingers to maintain extension.. REVIEW OF SYSTEMS Constitutional: Denies chills, Denies fever, Denies lethargy, Denies malaise, Denies poor appetite, Denies weakness, Denies weight loss Eyes: denies decreased vision, denies diplopia, denies discharge, denies pain Ears: deny: decreased hearing Ears, nose, mouth and throat: Denies dental pain, Denies headache, Denies nasal discharge, Denies nose pain Cardiovascular: Denies chest pain, Denies decreased exercise tolerance, Denies edema, Denies high blood pressure, Denies irregular heart beat, Denies palp itations, Denies paroxysmal nocturnal dyspnea, Denies rapid heart beat, Denies shortness of breath Respiratory: Denies congestion, Denies cough, Denies cough with sputum, Denies dyspnea, Denies home oxygen, Denies wheezing Gastrointestinal: Denies abdominal pain, Denies change in bowel habits, Denies coffee ground emesis, Denies heartburn, Denies hematemesis, Denies hematochezia, Denies loss of appetite, Denies nausea, Denies vomiting Genitourinary: Denies dysuria, Denies flank pain, Denies kidney stones, Denies menorrhagia, Denies urgency, Denies urinary frequency Musculoskeletal: Denies gait dysfunction, Denies limitation of motion, Denies morning stiffness, Denies muscle cramps endorses contracture, swelling, loss of sensation involving right upper extremity Integumentary: Denies rash, Denies wounds, Denies brittle nails, Denies change in hair/nails, Denies darkening of skin Neurological: Denies balance difficulties, no change in speech, Denies double vision, Denies gait dysfunction, Denies loss of vision, Denies numbness, Denies paralysis, induces tingling involving the dorsal aspect of foot Denies seizures Psychiatric: Denies anxiety, Denies depression mild PTSD Endocrine: Denies excessive sweating, Denies excessive thirst, Denies high blood sugars, Denies palpitations Hematologic/Lymphatic: Denies easy bruising, Denies lymphadenopathy PHYSICAL EXAMINATION Gen: This is a 70-year-old male. He is laying in bed and appears to be comfortable and in no acute distress. HEENT: Head is atraumatic, normocephalic. Pupils equal, round. Sclerae is anicteric. NECK: Supple. No JVD. No lymphadenopathy. No thyromegaly. LUNGS: Clear to auscultation. No wheezes or rhonchi. No intercostal retractions. HEART: Regular rate and rhythm. No murmur. ABDOMEN: Soft. Bowel sounds are present. No masses. No tenderness. Gerardo catheter draining clear becki urine. EXTREMITIES: No pedal edema. No calf tenderness. Significant swelling to the right upper shoulder upper arm on the right. Large dressing/wound VAC in place to the right forearm. Patient has very small amount of movement of the fingers. NEUROLOGICAL: Patient is awake, alert and oriented x3. Cranial nerves 2 through 12 are grossly intact. ASSESSMENT AND PLAN 1. Right forearm compartment syndrome -Status post dorsal and volar fasciotomies with Dr. Paez, 03/21. Status post debridement and irrigation on 03/23, Repeat irrigation 03/26, repeat irrigation, closure dorsal fasciotomy wound on 03/28. Patient is scheduled for now other irrigation on Friday. PT and OT following. Splint has been ordered for the right wrist. Vascular surgery Dr. Gerardo is not planning any further intervention. Acute rhabdomyolysis secondary to injury. Consult with nephrology appreciated. Continue IV fluids LR at 50 mL per hour -Status post bicarb drip Hypo-calcemia -Status post calcium gluconate, calcium carbonate 500 3 times a day Distal nondisplaced right clavicle fracture Acute COVID19 infection - Continue isolation Acute metabolic encephalopathy secondary to sepsis and acute kidney injury, rhabdomyolysis, Dilaudid Consult with neurology appreciated and signed off Stroke is not suspected Vitamin B12 1000 g daily added by neurology Hyperkalemia secondary to Rhabdomyolysis - Consult nephrology appreciated Acute lactic acidosis secondary to hypovolemia - Status post IV fluid bolus - Continue IV fluids at 70 mL/h. Acute kidney injury secondary to rhabdomyolysis secondary to ATN - Continue IV fluids with LR at 50 mL per hour - Baseline creatinine 0.8 -Avoid nephrotoxic agent -Hold metformin -Consult nephrology appreciated - No plan for dialysis - Sodium bicarb 325 mg twice daily Acute transaminitis - Liver enzymes have worsened since last admission -Continue perfusion with IV fluids Type II uncontrolled diabetes - Last A1c 7.2 - Hold metformin - Continue insulin sliding Scale and Lantus at 5 units at at bedtime History of UTI, acute ESBL E. coli UTI - Merrem. History of Sepsis secondary to acute urinary tract infection In October 2020 - Unclear if patient fall was a result of confusion. Infectious metabolic encephalopathy - resolved - CT head and neck suggestive of hyperdense involving right carotid. We will evaluate with CT angiogram head and neck.. Also mentioned normal pressure hydrocephalus on the CAT scan though MRI was negative for hydrocephalus in October Frequent falls possibly related to worsening Parkinson's, exacerbated by sepsis. - Does PT as outpatient. We'll evaluate for rehab once patient is stabl eDiabetic polyneuropathy. - Lyrica 150 mg twice daily Parkinson's. -Continue Sinemet 251 101-1/2 3 times daily. Hypothyroidism. -Continue levothyroxine 150 mcg daily. Guillain-Hill syndrome in 2007. Benign prostatic hypertrophy. -Continue Flomax or 0.4 mg daily. GI prophylaxis. Protonix. DVT prophylaxis. Heparin subcu. DISCHARGE PLAN Subacute rehab at [facility] next week. Impression and plan of care have been directed as dictated by the signing physician. Sophie Hitchcock nurse practitioner acting as scribe for signing physician. Objective - Vital Signs Vital signs: Vital Signs Temp 99.1 F 03/29/21 05:25 Pulse 85 03/29/21 05:25 Resp 15 03/29/21 05:25 BP 142/72 03/29/21 05:25 Pulse Ox 99 03/29/21 05:25 Intake & Output 03/28/21 03/29/21 03/29/21 18:59 06:59 18:59 Intake Total 1101 Output Total 205 550 Balance 896 -550 Weight 127 kg Intake: IV 1101 Sodium Chloride 0.9% 1, 600 000 ml @ 75 mls/hr IV . [id number] [facility] Rx#:[id number] Output: Urine 200 550 Estimated Blood Loss 5 Other: Voiding Method Indwelling Catheter Indwelling Catheter # Bowel Movements 1 ABP, PAP, CO, CI - Last Documented Arterial Blood Pressure 114/75 - Labs CBC & Chem 7: 03/29/21 05:27 03/29/21 05:27 Labs: Abnormal Lab Results - Last 24 Hours (Table) 03/28/21 03/28/21 03/28/21 Range/Units 05:33 11:40 16:39 RBC (4.30-5.90) m/uL Hgb (13.0-17.5) gm/dL Hct (39.0-53.0) % Chloride (98-107) mmol/L Carbon Dioxide (22-30) mmol/L BUN (9-20) mg/dL Creatinine (0.66-1.25) mg/dL Glucose (74-99) mg/dL POC Glucose (mg/dL) 153 H 141 H (75-99) mg/dL Creatine Kinase (55-170) U/L Vitamin D 25-Hydroxy 26.3 L (30.0-100.0) ng/mL 03/28/21 03/29/21 03/29/21 Range/Units 21:07 05:27 05:27 RBC 3.36 L (4.30-5.90) m/uL Hgb 10.5 L (13.0-17.5) gm/dL Hct 31.6 L (39.0-53.0) % Chloride (98-107) mmol/L Carbon Dioxide (22-30) mmol/L BUN (9-20) mg/dL Creatinine (0.66-1.25) mg/dL Glucose (74-99) mg/dL POC Glucose (mg/dL) 122 H (75-99) mg/dL Creatine Kinase 5896 H* (55-170) U/L Vitamin D 25-Hydroxy (30.0-100.0) ng/mL 03/29/21 03/29/21 Range/Units 05:27 07:16 RBC (4.30-5.90) m/uL Hgb (13.0-17.5) gm/dL Hct (39.0-53.0) % Chloride 115 H (98-107) mmol/L Carbon Dioxide 15 L (22-30) mmol/L BUN 75 H (9-20) mg/dL Creatinine 4.17 H (0.66-1.25) mg/dL Glucose 119 H (74-99) mg/dL POC Glucose (mg/dL) 132 H (75-99) mg/dL Creatine Kinase (55-170) U/L Vitamin D 25-Hydroxy (30.0-100.0) ng/mL Microbiology - Last 24 Hours (Table) 03/23/21 04:45 Blood Culture - Final Blood No Growth after 144 hours
[2021-03-29 16:59] LABS: Glucose,Whole Blood 125 mg/dL (75-99)
[2021-03-29 20:16] LABS: Glucose,Whole Blood 98 mg/dL (75-99)
[2021-03-29 20:51] LABS: Glucose,Whole Blood 132 mg/dL (75-99)
[2021-03-29] MEDS: INSULIN DETEMIR (LEVEMIR) 100 UNIT/ML SYR SQ SCH ×2 (20:57→21:36)
[2021-03-29] MEDS: ACETAMINOPHEN TAB 325 MG TAB PO PRN (21:05)
--- NOTE | 2021-03-29 22:39 | P.PN ---
Subjective Progress Note Date: 03/28/21 Principal diagnosis: Right forearm compartment syndrome , covid 19 infection Patient is a 70-year-old male who was brought into the hospital after the patient was started between bed and nightstand for 2 days noticed to have compartment syndrome right forearm status post fasciotomy 3, patient was transferred to the ICU last night because of worsening hypotension. Patient was taken back to the OR 03/23/2021 and is status post debridement of devitalized tissue and reapplication of the wound VAC, and did have a washout and change of the wound VAC on 03/27/2021 and 03/28/2021 On today's evaluation, and that is 03/28/2021 the patient continues to be afebrile, the patient is hemodynamically stable not any pressor support, the patient is breathing comfortably, patient pain the right forearm is currently controlled, patient denies chest pain shortness of breath or cough or sputum production , the patient denies nausea no vomiting no abdominal pain and no diarrhea Objective - Vital Signs Vital signs: Vital Signs Temp 97.4 F L 03/28/21 10:53 Pulse 69 03/28/21 10:53 Resp 15 03/28/21 10:53 BP 118/75 03/28/21 10:53 Pulse Ox 95 03/28/21 10:53 Intake & Output 03/27/21 03/28/21 03/28/21 18:59 06:59 18:59 Intake Total 1155 600 Output Total 515 500 Balance 640 -500 600 Intake: IV 675 600 Sodium Chloride 0.9% 1, 675 600 000 ml @ 75 mls/hr IV . [id number] [facility] Rx#:[id number] Oral 480 Output: Urine 515 500 Other: Voiding Method Indwelling Catheter Indwelling Catheter Indwelling Catheter ABP, PAP, CO, CI - Last Documented Arterial Blood Pressure 114/75 - Exam GENERAL DESCRIPTION:[ Patient is awake and alert in no distress] HEENT: [Oral mucosa is dry and no pharyngeal erythema] EYES : [No pallor or scleral icterus] RESPIRATORY SYSTEM: [Unlabored breathing decreased breath sounds at the base] CARDIA VASCULAR SYSTEM: [S1-S2 regular rate and rhythm no murmur] GI: [Abdominal soft there's no tenderness no organomegaly] EXTREMITIES: [Right forearm currently covered with a wound VAC there's no significant swelling no redness] - Labs CBC & Chem 7: 03/29/21 05:27 03/29/21 05:27 Labs: Abnormal Lab Results - Last 24 Hours (Table) 03/27/21 03/27/21 03/27/21 Range/Units 05:48 05:48 11:49 RBC 3.22 L (4.30-5.90) m/uL Hgb 9.9 L (13.0-17.5) gm/dL Hct 30.8 L (39.0-53.0) % Sodium (137-145) mmol/L Chloride (98-107) mmol/L Carbon Dioxide (22-30) mmol/L BUN (9-20) mg/dL Creatinine (0.66-1.25) mg/dL Glucose (74-99) mg/dL POC Glucose (mg/dL) 201 H (75-99) mg/dL Calcium (8.4-10.2) mg/dL AST (17-59) U/L ALT (4-49) U/L Creatine Kinase 22826 H* (55-170) U/L Total Protein (6.3-8.2) g/dL Albumin (3.5-5.0) g/dL 03/27/21 03/27/21 03/28/21 Range/Units 16:43 20:36 05:33 RBC (4.30-5.90) m/uL Hgb (13.0-17.5) gm/dL Hct (39.0-53.0) % Sodium 136 L (137-145) mmol/L Chloride 113 H (98-107) mmol/L Carbon Dioxide 17 L (22-30) mmol/L BUN 68 H (9-20) mg/dL Creatinine 4.22 H (0.66-1.25) mg/dL Glucose 128 H (74-99) mg/dL POC Glucose (mg/dL) 121 H 125 H (75-99) mg/dL Calcium 8.2 L (8.4-10.2) mg/dL AST 570 H (17-59) U/L ALT 90 H (4-49) U/L Creatine Kinase (55-170) U/L Total Protein 4.2 L (6.3-8.2) g/dL Albumin 1.9 L (3.5-5.0) g/dL 03/28/21 03/28/21 03/28/21 Range/Units 07:08 07:58 11:40 RBC 3.89 L (4.30-5.90) m/uL Hgb 11.9 L (13.0-17.5) gm/dL Hct 35.9 L (39.0-53.0) % Sodium (137-145) mmol/L Chloride (98-107) mmol/L Carbon Dioxide (22-30) mmol/L BUN (9-20) mg/dL Creatinine (0.66-1.25) mg/dL Glucose (74-99) mg/dL POC Glucose (mg/dL) 163 H 153 H (75-99) mg/dL Calcium (8.4-10.2) mg/dL AST (17-59) U/L ALT (4-49) U/L Creatine Kinase (55-170) U/L Total Protein (6.3-8.2) g/dL Albumin (3.5-5.0) g/dL Microbiology - Last 24 Hours (Table) 03/23/21 04:45 Blood Culture - Preliminary Blood No Growth after 120 hours 03/21/21 18:34 Blood Culture - Final Blood No Growth after 144 hours 03/21/21 18:34 Blood Culture - Final Blood No Growth after 144 hours Assessment and Plan (1) Compartment syndrome of forearm Current Visit: Yes Status: Acute Priority: High Onset Date: ~03/21/21 Code(s): T79.A19A - TRAUMATIC COMPARTMENT SYNDROME OF UNSP UPPER EXTREMITY, INIT SNOMED Code(s): 165110450 (2) COVID-19 Current Visit: Yes Status: Acute Code(s): U07.1 - COVID-19 SNOMED Code(s): 050711755 Plan: Patient with right forearm compartment syndrome traumatic in this patient with status post fasciotomy and wound VAC application , patient is afebrile and his white count is normalized, blood culture has been negative so far, no local cultures 2-patient did have a positive covid test, no significant respiratory symptoms and the patient is currently on room air, patient to continue with current supportive treatment 3-positive urine culture with ESBL E. coli repeat urinalysis is still positive however the culture subsequently came back negative, patient is currently covered with Invanz and monitor clinical course closely Time with Patient: Less than 30
--- NOTE | 2021-03-29 22:41 | P.PN ---
Subjective Progress Note Date: 03/29/21 Principal diagnosis: Right forearm compartment syndrome , covid 19 infection Patient is a 70-year-old male who was brought into the hospital after the patient was started between bed and nightstand for 2 days noticed to have compartment syndrome right forearm status post fasciotomy 3, patient was transferred to the ICU last night because of worsening hypotension. Patient was taken back to the OR 03/23/2021 and is status post debridement of devitalized tissue and reapplication of the wound VAC, and did have a washout and change of the wound VAC on 03/27/2021 and 03/28/2021 On today's evaluation, and that is 03/29/2021 the patient remains to be afebrile, the patient is hemodynamically stable not any pressor support, the patient is breathing comfortably denies chest pain shortness of breath or cough or sputum production , the patient denies nausea no vomiting no abdominal pain and no diarrhea, patient denies any worsening pain to the right forearm wound ar ea Objective - Vital Signs Vital signs: Vital Signs Temp 99.8 F H 03/29/21 21:06 Pulse 95 03/29/21 18:27 Resp 16 03/29/21 18:27 BP 119/79 03/29/21 18:27 Pulse Ox 94 L 03/29/21 18:27 Intake & Output 03/29/21 03/29/21 03/30/21 06:59 18:59 06:59 Intake Total 500 Output Total 550 500 Balance -550 500 -500 Intake: Intake, IV Titration 500 Amount Lactated Ringers 1,000 ml 400 @ 50 mls/hr IV .Q20H ANABEL Rx#:[id number] Meropenem 1 gm In Sodium 100 Chloride 0.9% 100 ml @ 33 .3 mls/hr IVPB Q12H A[facility] Rx#:[id number] Output: Drainage 500 Right Arm 500 Urine 550 Other: Voiding Method Indwelling Catheter Indwelling Catheter # Bowel Movements 1 ABP, PAP, CO, CI - Last Documented Arterial Blood Pressure 114/75 - Exam GENERAL DESCRIPTION:[ Patient is awake and alert in no distress] HEENT: [Oral mucosa is dry and no pharyngeal erythema] EYES : [No pallor or scleral icterus] RESPIRATORY SYSTEM: [Unlabored breathing decreased breath sounds at the base] CARDIA VASCULAR SYSTEM: [S1-S2 regular rate and rhythm no murmur] GI: [Abdominal soft there's no tenderness no organomegaly] EXTREMITIES: [Right forearm currently covered with a wound VAC there's no significant swelling no redness] - Labs CBC & Chem 7: 03/29/21 05:27 03/29/21 05:27 Labs: Abnormal Lab Results - Last 24 Hours (Table) 03/29/21 03/29/21 03/29/21 Range/Units 05:27 05:27 05:27 RBC 3.36 L (4.30-5.90) m/uL Hgb 10.5 L (13.0-17.5) gm/dL Hct 31.6 L (39.0-53.0) % Chloride 115 H (98-107) mmol/L Carbon Dioxide 15 L (22-30) mmol/L BUN 75 H (9-20) mg/dL Creatinine 4.17 H (0.66-1.25) mg/dL Glucose 119 H (74-99) mg/dL POC Glucose (mg/dL) (75-99) mg/dL Creatine Kinase 5896 H* (55-170) U/L 03/29/21 03/29/21 03/29/21 Range/Units 07:16 11:53 16:58 RBC (4.30-5.90) m/uL Hgb (13.0-17.5) gm/dL Hct (39.0-53.0) % Chloride (98-107) mmol/L Carbon Dioxide (22-30) mmol/L BUN (9-20) mg/dL Creatinine (0.66-1.25) mg/dL Glucose (74-99) mg/dL POC Glucose (mg/dL) 132 H 169 H 125 H (75-99) mg/dL Creatine Kinase (55-170) U/L 03/29/21 Range/Units 20:44 RBC (4.30-5.90) m/uL Hgb (13.0-17.5) gm/dL Hct (39.0-53.0) % Chloride (98-107) mmol/L Carbon Dioxide (22-30) mmol/L BUN (9-20) mg/dL Creatinine (0.66-1.25) mg/dL Glucose (74-99) mg/dL POC Glucose (mg/dL) 132 H (75-99) mg/dL Creatine Kinase (55-170) U/L Microbiology - Last 24 Hours (Table) 03/23/21 04:45 Blood Culture - Final Blood No Growth after 144 hours Assessment and Plan (1) Compartment syndrome of forearm Current Visit: Yes Status: Acute Priority: High Onset Date: ~03/21/21 Code(s): T79.A19A - TRAUMATIC COMPARTMENT SYNDROME OF UNSP UPPER EXTREMITY, INIT SNOMED Code(s): 260388897 (2) COVID-19 Current Visit: Yes Status: Acute Code(s): U07.1 - COVID-19 SNOMED Code(s): 496855134 Plan: Patient with right forearm compartment syndrome traumatic in this patient with status post fasciotomy and wound VAC application , patient is afebrile and his white count is normalized, blood culture has been negative so far, no local cultures , antibiotic adjusted to cefazolin 2-patient did have a positive covid test, no significant respiratory symptoms and the patient is currently on room air, patient to continue with current supportive treatment 3-positive urine culture with ESBL E. coli repeat urinalysis is still positive however the culture subsequently came back negative, we will discontinue Invanz Time with Patient: Less than 30
--- NOTE | 2021-03-30 00:18 | P.PN ---
Subjective Progress Note Date: 03/29/21 Neurology was reconsulted for evaluation of possible brachial plexus injury right upper extremity. Patient initially seen by Dr. Prince Wade. Please refer to his note for details. Patient is a 70-year-old male, who was brought into the hospital after the patient was strained between bed and nystatin for 2 days, and noticed to have compartment syndrome right forearm, status post fasciotomy 3 patient was taken back to the OR on 03/23/2021 and is status post debridement of the devitalized tissue and reapplication of the wound VAC, and did have a washout and change of the wound VAC on 03/27/2021 and 03/28/2021. Patient has been diagnosed with right forearm compartment syndrome, Covid-19 infection. Patient tells me that he came to the hospital because he was given too much exercises, "nurses forced exercises yesterday". He knows that he has been in the hospital for one and a half weeks. Patient states that he cannot move his right arm. He admits that he can move his lower extremities without issues. He admits to having neck soreness 8/10, low back pain 8/10. Patient states his whole right upper limb is hurting rating 8/10. Right arm is numb. Denies any numbness of the left arm. Denies any pain in the left upper activity. Patient admits to having diabetes for 10 years. He does not smoke. He drinks alcohol occasionally. Objective - Vital Signs Vital signs: Vital Signs Temp 99.1 F 03/29/21 22:01 Pulse 94 03/29/21 22:01 Resp 15 03/29/21 22:01 BP 115/67 03/29/21 22:01 Pulse Ox 95 03/29/21 22:01 Intake & Output 03/29/21 03/29/21 03/30/21 06:59 18:59 06:59 Intake Total 500 Output Total 550 1500 Balance -550 500 -1500 Intake: Intake, IV Titration 500 Amount Lactated Ringers 1,000 ml 400 @ 50 mls/hr IV .Q20H [facility] Rx#:[id number] Meropenem 1 gm In Sodium 100 Chloride 0.9% 100 ml @ 33 .3 mls/hr IVPB Q12H A[facility]EL Rx#:[id number] Output: Drainage 500 Right Arm 500 Urine 550 1000 Other: Voiding Method Indwelling Catheter Indwelling Catheter # Bowel Movements 1 ABP, PAP, CO, CI - Last Documented Arterial Blood Pressure 114/75 - Exam On examination patient is an elderly male, who appears obviously encephalopathic, slightly delirious with fluctuating mental status. Sometimes he becomes more alert, but other times he is more groggy, drowsy. Patient knows it is March and the year is 22. Patient knows he is in [facility], but when I asked what city it is, he states [facility]. When asked about the state, he states "state of confusion". He can name and repeat very well. No aphasia or dysarthria. On cranial examination pupils are equal, round and reacting to light. No Yael's. Extraocular muscles are intact. Face is symmetric, tongue protrudes to the midline. Palatal elevation and sensation normal. Hearing appears somewhat decreased partly because of mental status. Shoulder shrug decreased on the right. On muscle strength testing, the strength is normal in the left arm and bilateral lower limbs. Patient is completely flaccid in the right upper extremity. He has significant edema/swelling of the entire right upper extremity extending all the way to the deltoid and pectoral muscles. Deep tendon reflexes are (right/left) biceps 0/trace, brachioradialis 0/trace, knee 1/1, ankles 0/0, plantars are flat bilaterally. Sensory touch is decreased in the entire right upper extremity. Patient was feeling less sensation over the left deltoid as compared to the right. Patient was giving somewhat inconsistent responses due to his delirium/encephalopathy. Gait not tested. Patient did not cooperate for cerebellar function testing. Gait cannot be tested. Patient had peripheral edema. Right arm is severely swollen. S1 and S2 audible. Patient is coughing. Some chest congestion. Abdomen is soft and nontender. - Labs CBC & Chem 7: 03/29/21 05:27 03/29/21 05:27 Labs: Abnormal Lab Results - Last 24 Hours (Table) 03/29/21 03/29/21 03/29/21 Range/Units 05:27 05:27 05:27 RBC 3.36 L (4.30-5.90) m/uL Hgb 10.5 L (13.0-17.5) gm/dL Hct 31.6 L (39.0-53.0) % Chloride 115 H (98-107) mmol/L Carbon Dioxide 15 L (22-30) mmol/L BUN 75 H (9-20) mg/dL Creatinine 4.17 H (0.66-1.25) mg/dL Glucose 119 H (74-99) mg/dL POC Glucose (mg/dL) (75-99) mg/dL Creatine Kinase 5896 H* (55-170) U/L 03/29/21 03/29/21 03/29/21 Range/Units 07:16 11:53 16:58 RBC (4.30-5.90) m/uL Hgb (13.0-17.5) gm/dL Hct (39.0-53.0) % Chloride (98-107) mmol/L Carbon Dioxide (22-30) mmol/L BUN (9-20) mg/dL Creatinine (0.66-1.25) mg/dL Glucose (74-99) mg/dL POC Glucose (mg/dL) 132 H 169 H 125 H (75-99) mg/dL Creatine Kinase (55-170) U/L 03/29/21 Range/Units 20:44 RBC (4.30-5.90) m/uL Hgb (13.0-17.5) gm/dL Hct (39.0-53.0) % Chloride (98-107) mmol/L Carbon Dioxide (22-30) mmol/L BUN (9-20) mg/dL Creatinine (0.66-1.25) mg/dL Glucose (74-99) mg/dL POC Glucose (mg/dL) 132 H (75-99) mg/dL Creatine Kinase (55-170) U/L Microbiology - Last 24 Hours (Table) 03/23/21 04:45 Blood Culture - Final Blood No Growth after 144 hours Assessment and Plan Assessment: Right brachial plexopathy. Patient's right arm is entirely weak proximally and distally in all myotomes. Right forearm compartment syndrome status post fasciotomy 4 (as result him rolling over from the bed while sleeping, and was pinned between his back and the nightstand and stayed there for 2 days) Acute rhabdomyolysis secondary due to injury Acute COVID-19 infection Altered mental status due to toxic-metabolic encephalopathy (MINI, elevated LFT's, Dilaudid use)---improved Acute kidney injury due to fall--now trending downward Possible acute urinary tract infection suspicious for hairline fracture nondisplaced distal right clavicle reported on x-ray: Likely from from his trauma Hyperkalemia secondary due to rhabdomyolysis---resolved Normal CTA of head and neck Diabetes Mellitus and his sugar is uncontrolled (last HbA1c is 7.2 on 10/2020) Parkinson's disease Low normal Vitamin B12 (270 on 10/2020) 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 Plan: MRI of the cervical spine without contrast, and MRI of the right brachial plexus. Ideally I would suggest MRI of the right brachial plexus to be performed with and without contrast, but because of renal failure, may have to be performed without contrast. Recommend EMG with NCS of right upper extremity as outpatient when possible. Continue home dose of Sinemet 62517 1-1/2 tablet 3 times a day. Continue vitamin B12 1000 g daily since he has low vitamin B12 from October 2020 Infection disease is consulted for wound care nephrology team is consulted. PT, OT are consulted We'll defer the rest of the medical management to the primary team Upon discharge the patient needs to follow-up with his neurologist (Dr. Erica Tamayo) within 1-2 weeks. Recommend further investigation whether the patient truly has normal pressure hydrocephalus as outpatient. Time with Patient: Greater than 30
[2021-03-30] MEDS: LEVOTHYROXINE 75 MCG TAB PO SCH (05:46)
[2021-03-30 06:25] LABS: African American GFR (CKD) 17 (>60 ml/min/1.73 sqM); Anion Gap 6 mmol/L; Blood Urea Nitrogen 81 mg/dL (9-20); Calcium 8.9 mg/dL (8.4-10.2); Carbon Dioxide 18 mmol/L (22-30); Chloride 114 mmol/L (98-107); Glucose 96 mg/dL (74-99); Non-African American GFR(CKD) 15 (>60 ml/min/1.73 sqM); Potassium 4.4 mmol/L (3.5-5.1); Sodium 138 mmol/L (137-145)
[2021-03-30 06:35] LABS: Creatine Kinase 2184 U/L (55-170)
[2021-03-30 06:51] LABS: Glucose,Whole Blood 101 mg/dL (75-99)
[2021-03-30] MEDS: INSULIN ASPART (NovoLOG) 100 UNIT/ML VIAL SQ SCH ×4 (07:23→21:28)
[2021-03-30] MEDS: CALCIUM CARBONATE 500 MG CHEWABLE PO SCH ×3 (08:59→21:02)
[2021-03-30] MEDS: CYANOCOBALAMIN 500 MCG TAB PO SCH (08:59)
[2021-03-30] MEDS: ASCORBIC ACID 500 MG TAB PO SCH (08:59)
[2021-03-30] MEDS: HEPARIN SODIUM,PORCINE/PF 5,000 UNIT/0.5 ML SYRINGE SQ SCH ×2 (09:00→21:01)
[2021-03-30] MEDS: SODIUM BICARBONATE TAB 650 MG TAB PO SCH ×2 (09:00→21:01)
[2021-03-30] MEDS: MULTIVITAMINS, THERA 1 EACH TAB PO SCH (09:00)
[2021-03-30] MEDS: CARBIDOPA-LEVODOPA 25-100 MG 1 EACH TAB PO SCH ×3 (09:00→21:01)
[2021-03-30] MEDS: ZINC SULFATE 220 MG CAP PO SCH (09:00)
[2021-03-30] MEDS: TAMSULOSIN 0.4 MG CAP.ER.24H PO SCH (09:00)
[2021-03-30] MEDS: PREGABALIN 75 MG CAP PO SCH ×3 (09:00→21:01)
--- NOTE | 2021-03-30 10:12 | P.PN ---
Subjective Progress Note Date: 03/30/21 Principal diagnosis: Compartment syndrome right forearm. Status post Dorsal and volar fasciotomy Right forearm. Multiple medical comorbidities. This is a 70-year-old male who is admitted and being managed for compartment syndrome. Patient is status post irrigation of the right forearm compartment fasciotomy wounds and replacement of the wound vac by Dr. Paez. This is postoperative day #2 from the most recent irrigation and debridement and wound VAC placement as well as closure of the dorsal wound and placement of a Prevena wound VAC. Patient is seen and evaluated at bedside today. He has no new complaints or concerns today. Vital signs are stable. CK is improving. I have been informed by nursing that the hospital has no more wound VAC canisters. They just switched out the patient's canister with the very last existing canister in the hospital. Objective - Vital Signs Vital signs: Vital Signs Temp 97.7 F 03/30/21 08:19 Pulse 80 03/30/21 08:19 Resp 18 03/30/21 08:19 BP 128/71 03/30/21 08:19 Pulse Ox 97 03/30/21 08:19 Intake & Output 03/29/21 03/30/21 03/30/21 18:59 06:59 18:59 Intake Total 500 Output Total 2175 Balance 500 -2175 Intake: Intake, IV Titration 500 Amount Lactated Ringers 1,000 ml 400 @ 50 mls/hr IV .Q20H ANABEL Rx#:[id number] Meropenem 1 gm In Sodium 100 Chloride 0.9% 100 ml @ 33 .3 mls/hr IVPB Q12H ANABEL Rx#:[id number] Output: Drainage 500 Right Arm 500 Urine 1675 Other: Voiding Method Indwelling Catheter Indwelling Catheter ABP, PAP, CO, CI - Last Documented Arterial Blood Pressure 114/75 - Exam This is a pleasant 70-year-old male in no acute distress. He is alert and oriented at this time. Physical therapy is present in the room at this time. Exam of the right upper extremity reveals mild tenderness to the distal clavicle. There is some swelling to the upper extremity but compartments feel soft. The forearm has prevena wound vac in place in the dorsal forearm and a wound vac in place on the volar forearm. I am able to palpate a weak radial pulse. Palpation of the pulse may be hindered by the drapes. He is unable to actively move fingers. Capillary refill is less than 3 seconds to all fingers. - Labs CBC & Chem 7: 03/29/21 05:27 03/30/21 05:24 Labs: Abnormal Lab Results - Last 24 Hours (Table) 03/29/21 03/29/21 03/29/21 Range/Units 05:27 11:53 16:58 Chloride 115 H (98-107) mmol/L Carbon Dioxide 15 L (22-30) mmol/L BUN 75 H (9-20) mg/dL Creatinine 4.17 H (0.66-1.25) mg/dL Glucose 119 H (74-99) mg/dL POC Glucose (mg/dL) 169 H 125 H (75-99) mg/dL Creatine Kinase (55-170) U/L 03/29/21 03/30/21 03/30/21 Range/Units 20:44 05:24 06:47 Chloride 114 H (98-107) mmol/L Carbon Dioxide 18 L (22-30) mmol/L BUN 81 H (9-20) mg/dL Creatinine 3.87 H (0.66-1.25) mg/dL Glucose (74-99) mg/dL POC Glucose (mg/dL) 132 H 101 H (75-99) mg/dL Creatine Kinase 2184 H* (55-170) U/L Microbiology - Last 24 Hours (Table) 03/23/21 04:45 Blood Culture - Final Blood No Growth after 144 hours Assessment and Plan (1) MINI (acute kidney injury) Current Visit: Yes Status: Acute Code(s): N17.9 - ACUTE KIDNEY FAILURE, UNSPECIFIED SNOMED Code(s): 04651299 (2) Compartment syndrome of right upper extremity Current Visit: Yes Status: Acute Code(s): T79.A11A - TRAUMATIC COMPARTMENT SYNDROME OF R UP EXTREM, INIT SNOMED Code(s): 536057709 (3) Compression neuropathy of right upper extremity Current Visit: Yes Status: Acute Code(s): G56.91 - UNSPECIFIED MONONEUROPATHY OF RIGHT UPPER LIMB SNOMED Code(s): 522844497 (4) Fall Current Visit: Yes Status: Acute Code(s): W19.XXXA - UNSPECIFIED FALL, INITI AL ENCOUNTER SNOMED Code(s): 0073484 (5) Lactic acidosis Current Visit: Yes Status: Acute Code(s): E87.2 - ACIDOSIS SNOMED Code(s): 20795625 (6) Urinary tract infection Current Visit: No Status: Acute Code(s): N39.0 - URINARY TRACT INFECTION, SITE NOT SPECIFIED SNOMED Code(s): 66062285 Plan: The clinical findings are discussed with the patient and nursing staff. We are planning repeat irrigation and debridement and wound VAC change on Friday. He will be on a Friday, , Friday rotation for wound VAC change per the wound care team. I have ordered a volar splint to keep his wrist and fingers in extension. Continue current care. I have been singed Dr. Mary regarding the wound VAC canister shortage. Nursing staff will stay in contact with me for further instructions regarding wound care if we are unable to obtain a new canister. We likely will need to switch to wet-to-dry dressings if we are unable to continue with the wound VAC.
[2021-03-30 11:14] LABS: Glucose,Whole Blood 112 mg/dL (75-99)
--- NOTE | 2021-03-30 13:14 | P.PN ---
Subjective Progress Note Date: 03/30/21 HISTORY OF PRESENT ILLNESS 70 years old male patient of Dr. Pennington with past medical history of Parkinson's, diabetes with diabetic neuropathy, hypothyroidism, calendar in 20 10, chronic back pain with lumbar surgery 25 years ago comes in after he was found pinned in between his bed and the nightstand. Patient stated that he was rolling in his bed when he got stuck. According to the daughter bedside it appears patient has been stuck there for 2 days since he has not taken his medication. Patient was unable to reach anybody. Since nobody heard anything from the patient family called neighbors and friends to check on him. Patient was alert and was found suspended and there in between his bed and nightstand and unable to move himself from this position. Patient was released from his position and brought to the hospital. He is unable to move his right upper e xtremity with significant bruising and ecchymosis involving the forearm and the hand. Patient has no mobility involving his right arm , with contracture involving his hand.. Patient denies dizziness, confusion or recent falls. He states he was doing well and had no fever, chills, polyuria increased frequency or concern for sepsis. He did see a urologist at [facility] for his recurrent UTIs in January and was found to have a urine infection. Patient was admitted in in October for recurrent falls and UTI sepsis with E. coli resistant to fluoroquinolones. Patient is fairly active at baseline and goes to gym 4 times a week. Patient had a detailed workup including MRI, EEG and echocardiogram on his admission in October, echocardiogram suggest moderate concentric left ventricle hypertrophy with EF 55-60% on the valves with mild mitral and tricuspid regurgitation. Right ventricle pressures were less than 35mm. Vitals reviewed patient is afebrile pulse 63 respiratory rate 16 blood pressure 147/99 oxybutynin 95% on room air. Labs reviewed WBC 13.9 hemoglobin 17.4 sodium 136 potassium 6.1 bicarbonate 19 creatinine 1.35 and blood sugar 242 lactic acid 7.1 AST 660 ALT 259 with CK levels [id number] troponin [address] head and cervical spine showed right ICA hyperdense and recommended CT angiography to: For list exclude internal thrombosis no acute intracranial hemorrhage or mass effect degenerative and nonspecific white matter changes most typical remote ischemia slightly gait greater central competent of ventricle dilation can be associated with normal pressure hydrocephalus severe multilevel degenerative disc disease no fracture X-rays humerus was negative for fracture or dislocation. X-ray forearm suggestive no acute fracture diffuse soft tissue edema suggestive of posttraumatic or postinfectious edema shoulder x-ray on the right shows hairline fracture nondisplaced distal right clavicle with soft tissue edema. Chest x-ray with right lower lobe A to lactose is only infiltrated nodular density right lung may be related to superimposed structure short-term follow-up with repeat chest x-ray recommended. EKG suggested normal sinus rhythm with T-wave abnormality noted x-ray hand no fracture or dislocation but patient's patient's were flexed extensive soft tissue swelling noted 03/22: She and has been hypotensive and ordered for 2 more liters of IV fluid bolus. Blood culture and urine culture in progress. Patient has been afebrile, temperature actually on the lower side 96.7-97.5. Heart rate 78, blood pressure 110/71 after fluids, pulse ox 93% on 4 L nasal cannula. Repeat blood work reveals WBC 12.0. Sodium 133, potassium 6.5, chloride 112, CO2 10, BUN 31 and creatinine 2.65. Blood sugars running between 207 and 221. Repeat lactic acid 2.7. CK 60,158. AST 1424, ALT 87. Kayexalate 30 g, calcium gluconate 1 g with 10 units of regular insulin and D50 50 ML's all ordered. Consult added for nephrology. Orthopedics is planning on returning to or tomorrow to remove wound VAC and assess wounds and possible new wound VAC placement, possible closure partial closure of the wounds. Patient also followed by neurology and infectious disease. Patient is currently on 2 g every 12 hours 03/23: Due to worsening renal function and worsening rhabdomyolysis as well as hypotension yesterday, patient was moved into the intensive care unit. His urine output has been 20-30 ML's. He has been continued on IV fluids currently at 150 mL per hour. We will add in fluid bolus of 2 L. Patient has been seen by nephrology and was started on bicarb drip yesterday now discontinued. Continue to assess daily for need for renal replacement therapy. Vascular surgery is following for possible dialysis catheter. No further vascular intervention for the upper extremity at this time. Neurology has no further plans will recommend follow-up with his neurologist and will sign off the case for now. Renal ultrasound revealed suboptimal study without hydronephrosis bilaterally. 03/24 patient examined at bedside. He has no improvement in sensation involving her right upper extremity. He did have an episode last night when he woke up in Panic as patient thought he lost hus arm. He is otherwise alert and answer questions appropriately. Vitals stable hemoglobin stable, calcium is 6.2 creatinine kinase is 39,000 181. IV fluids are running at 1 50 mL per hour urine output approximately 30 ML per hour. 1 L bolus given to the patient 1 calcium 1 g calcium gluconate ordered. Tums Ultra 45 and repeat treatment 3 times a day. Discussed with patient the possible need to be on PTSD reluctant to start at this point medication. 03/25 patient examined at bedside. He is complaining of significant pain in his right arm is otherwise stable patient's to 94% on 2 L. Hemoglobin stable at 10, BUN and creatinine continued to trend up. Urine continues to remain infected. Urine output is 1.4 L in the past 24 hours patient may need dialysis if no improvement in unit urine output is seen. Dilaudid 0.5 mg stat given 03/26: Patient remains in the intensive care unit. Urine culture finalized with 2 E. coli 1 ESBL, currently on meropenem and followed by Dr. Muro. Nephrology has decreased IV fluids to 70 ML's per hour once patient is eating. He is scheduled for another I&D today with orthopedics. He continues to have no movement to the right upper extremity and has slight sensation. Patient has been afebrile, heart rate in the 70s, blood pressure 121/65, pulse ox 94% on room air. Sodium 134, potassium 4, chloride 108, CO2 20, BUN 57 creatinine 4.64. Blood sugars running between 106 and 160. AST 873. 03/27: Patient remains in the intensive care unit but has been downgraded to [facility] without telemetry. Patient underwent I&D irrigation only yesterday with Dr. Paez. Wound VAC is in place and there is a collection of blood within the dressing. Repeat I&D scheduled for tomorrow. Patient is continued on meropenem. Patient is afebrile, heart rate 85, blood pressure 120/92, pulse ox 95% on room air. BUN 60, creatinine 4.47. Capillary blood glucose running between 121 at 201. Urine output is 60-75 mL per hour. Nephrology is not planning on renal replacement. Repeat chest x-ray reveals patchy basilar atelectasis and/or infiltrates persist unchanged. 03/28: Patient is seen today on the [facility] floor. Patient is scheduled for I&D and wound VAC change today in the OR with Dr. Paez today. Patient has very minimal movement to the fingers on the right. PT and OT working with the patient as well. Patient has significant edema to the right shoulder and upper arm, right clavicle area. CBG 123-153. BUN 68 creatinine 4.22. CK from yesterday was 19,643. AST 570, ALT 90. Discharge plan is for [facility]. Patient also had a midline placed yesterday. 03/29: Wound VAC remains in place to the right arm, has slightly less edema and slight movement of his right hand. Patient also noted to have a large right flank hematoma and ecchymosis. Gerardo catheter remains in place. Repeat creatinine is 4.17 and BUN 75, CO2 15. Blood sugar 119. CBGs are running between 120 269. Repeat CK is down to 5896. Patient is currently on LR at 50 ML's per hour, and started on sodium bicarb, continued on meropenem. Patient has been seen by the wound care team with plan to follow-up in the wound healing Center at discharge. Orthopedics is planning for repeat irrigation and a bright red wound VAC change on Friday. For splint has been ordered for his right wrist and fingers to maintain extension.. 03/30: Patient denies any new concerns. Patient is followed closely by orthopedics with plan for irrigation on Friday and change out wound VAC. There is concern that there are no wound VAC canister available in the hospital due to shortage and thus patient may need to be switched to a wet-to-dry dressing. A is also followed by infectious disease and continued on Kefzol. CK continues to improve today at 2184. BUN 81 and creatinine 3.87. Nephrology is following closely with no plan for dialysis. Neurology has recommended EMG with NCS of the right upper extremity as an outpatient one possible with recommendations to follow up with his neurologist Dr. Erica Tamayo and recommend further investigation for normal pressure hydrocephalus as an outpatient. REVIEW OF SYSTEMS Constitutional: Denies chills, Denies fever, Denies lethargy, Denies malaise, Denies poor appetite, Denies weakness, Denies weight loss Eyes: denies decreased vision, denies diplopia, denies discharge, denies pain Ears: deny: decreased hearing Ears, nose, mouth and throat: Denies dental pain, Denies headache, Denies nasal discharge, Denies nose pain Cardiovascular: Denies chest pain, Denies decreased exercise tolerance, Denies edema, Denies high blood pressure, Denies irregular heart beat, Denies palpitations, Denies paroxysmal nocturnal dyspnea, Denies rapid heart beat, Denies shortness of breath Respiratory: Denies congestion, Denies cough, Denies cough with sputum, Denies dyspnea, Denies home oxygen, Denies wheezing Gastrointestinal: Denies abdominal pain, Denies change in bowel habits, Denies coffee ground emesis, Denies heartburn, Denies hematemesis, Denies hematochezia, Denies loss of appetite, Denies nausea, Denies vomiting Genitourinary: Denies dysuria, Denies flank pain, Denies kidney stones, Denies menorrhagia, Denies urgency, Denies urinary frequency Musculoskeletal: Denies gait dysfunction, Denies limitation of motion, Denies morning stiffness, Denies muscle cramps endorses contracture, swelling, loss of sensation involving right upper extremity Integumentary: Denies rash, Denies wounds, Denies brittle nails Neurological: Denies balance difficulties, no change in speech, Denies double vision, Denies gait dysfunction, Denies loss of vision, Denies numbness, Denies paralysis, loss of sensation to the right arm, paralysis of the right upper extremity, Denies seizures Psychiatric: Denies anxiety, Denies depression mild PTSD Endocrine: Denies excessive sweating, Denies excessive thirst, Denies high blood sugars, Denies palpitations Hematologic/Lymphatic: Denies easy bruising, Denies lymphadenopathy PHYSICAL EXAMINATION Gen: This is a 70-year-old male. He is laying in bed and appears to be comfortable and in no acute distress. HEENT: Head is atraumatic, normocephalic. Pupils equal, round. Sclerae is anicteric. NECK: Supple. No JVD. No lymphadenopathy. No thyromegaly. LUNGS: Clear to auscultation. No wheezes or rhonchi. No intercostal retractions. HEART: Regular rate and rhythm. No murmur. ABDOMEN: Soft. Bowel sounds are present. No masses. No tenderness. Gerardo catheter draining clear becki urine. EXTREMITIES: No pedal edema. No calf tenderness. Swelling to the right upper shoulder upper arm and clavicle on the right. Large dressing/wound VAC in place to the right forearm. Patient has very small amount of movement of the fingers. NEUROLOGICAL: Patient is awake, alert and oriented x3. Cranial nerves 2 through 12 are grossly intact. ASSESSMENT AND PLAN 1. Right forearm compartment syndrome -Status post dorsal and volar fasciotomies with Dr. Paez, 03/21. Status post debridement and irrigation on 03/23, Repeat irrigation 03/26, repeat irrigation, closure dorsal fasciotomy wound on 03/28. Patient is scheduled for now other irrigation on Friday. PT and OT following. Splint has been ordered for the right wrist. Vascular surgery Dr. Gerardo is not planning any further intervention. Plan for outpatient EMG 2. Acute rhabdomyolysis secondary to injury with metabolic acidoses, improving. Consult with nephrology appreciated. Continue IV fluids, s/p bicarb. 3. Hypo-calcemia. Status post calcium gluconate, calcium carbonate 500 3 times a day 4. Distal nondisplaced right clavicle fracture 5. Acute COVID19 infection. Continue isolation 6. Acute metabolic encephalopathy secondary to sepsis and acute kidney injury, rhabdomyolysis, Dilaudid, resolved. Consult with neurology appreciated and signed off. Vitamin B12 1000 g daily added by neurology. 7. Hyperkalemia secondary to Rhabdomyolysis, resolved. 8. Acute lactic acidosis secondary to hypovolemia, status post IV fluid bolus.Continue IV fluids . 9. Acute kidney injury secondary to rhabdomyolysis secondary to ATN. Continue IV fluids, Baseline creatinine 0.8, Avoid nephrotoxic agents, Hold metformin, Consult nephrology appreciated, No plan for dialysis, Sodium bicarb 325 mg twice daily. 10. Acute transaminitis. Monitor Type II uncontrolled diabetes - Last A1c 7.2 - Hold metformin - Continue insulin sliding Scale and Lantus at 5 units at at bedtime History of UTI, acute ESBL E. coli UTI - Merrem. History of Sepsis secondary to acute urinary tract infection In October 2020 - Unclear if patient fall was a result of confusion. Infectious metabolic encephalopathy - resolved - CT head and neck suggestive of hyperdense involving right carotid. We will evaluate with CT angiogram head and neck.. Also mentioned normal pressure hydrocephalus on the CAT scan though MRI was negative for hydrocephalus in October Frequent falls possibly related to worsening Parkinson's, exacerbated by sepsis. - Does PT as outpatient. We'll evaluate for rehab once patient is stableDiabetic polyneuropathy. - Lyrica 150 mg twice daily Parkinson's. -Continue Sinemet 251 101-1/2 3 times daily. Hypothyroidism. -Continue levothyroxine 150 mcg daily. Guillain-[place] syndrome in 2007. Benign prostatic hypertrophy. -Continue Flomax or 0.4 mg daily. GI prophylaxis. Protonix. DVT prophylaxis. Heparin subcu. DISCHARGE PLAN Subacute rehab at [facility] next week. Impression and plan of care have been directed as dictated by the signing physician. Sophie Hitchcock nurse practitioner acting as scribe for signing physician. Objective - Vital Signs Vital signs: Vital Signs Temp 97.7 F 03/30/21 08:19 Pulse 80 03/30/21 08:19 Resp 18 03/30/21 08:19 BP 128/71 03/30/21 08:19 Pulse Ox 97 03/30/21 08:19 Intake & Output 03/29/21 03/30/21 03/30/21 18:59 06:59 18:59 Intake Total 500 Output Total 2175 500 Balance 500 -2175 -500 Intake: Intake, IV Titration 500 Amount Lactated Ringers 1,000 ml 400 @ 50 mls/hr IV .Q20H ANABEL Rx#:[id number] Meropenem 1 gm In Sodium 100 Chloride 0.9% 100 ml @ 33 .3 mls/hr IVPB Q12H ANABEL Rx#:[id number] Output: Drainage 500 500 Right Arm 500 500 Urine 1675 Other: Voiding Method Indwelling Catheter Indwelling Catheter ABP, PAP, CO, CI - Last Documented Arterial Blood Pressure 114/75 - Labs CBC & Chem 7: 03/29/21 05:27 03/30/21 05:24 Labs: Abnormal Lab Results - Last 24 Hours (Table) 03/29/21 03/29/21 03/29/21 Range/Units 11:53 16:58 20:44 Chloride (98-107) mmol/L Carbon Dioxide (22-30) mmol/L BUN (9-20) mg/dL Creatinine (0.66-1.25) mg/dL POC Glucose (mg/dL) 169 H 125 H 132 H (75-99) mg/dL Creatine Kinase (55-170) U/L 03/30/21 03/30/21 Range/Units 05:24 06:47 Chloride 114 H (98-107) mmol/L Carbon Dioxide 18 L (22-30) mmol/L BUN 81 H (9-20) mg/dL Creatinine 3.87 H (0.66-1.25) mg/dL POC Glucose (mg/dL) 101 H (75-99) mg/dL Creatine Kinase 2184 H* (55-170) U/L Microbiology - Last 24 Hours (Table) 03/23/21 04:45 Blood Culture - Final Blood No Growth after 144 hours
--- NOTE | 2021-03-30 15:28 | P.PN ---
Subjective Progress Note Date: 03/30/21 Principal diagnosis: Right forearm compartment syndrome , covid 19 infection Patient is a 70-year-old male who was brought into the hospital after the patient was started between bed and nightstand for 2 days noticed to have compartment syndrome right forearm status post fasciotomy 3, patient was transferred to the ICU last night because of worsening hypotension. Patient was taken back to the OR 03/23/2021 and is status post debridement of devitalized tissue and reapplication of the wound VAC, and did have a washout and change of the wound VAC on 03/27/2021 and 03/28/2021 On today's evaluation, and that is 03/30/2021 the patient continues to be afebrile, the patient is hemodynamically stable not any pressor support, the patient is breathing comfortably on 2 L nasal cannula, the patient denies chest pain shortness of breath or cough or sputum production , the patient denies nausea no vomiting no abdominal pain and no diarrhea, patient denies any worsening pain to the right forearm wound area Objective - Vital Signs Vital signs: Vital Signs Temp 97.7 F 03/30/21 08:19 Pulse 80 03/30/21 08:19 Resp 18 03/30/21 08:19 BP 128/71 03/30/21 08:19 Pulse Ox 97 03/30/21 08:19 Intake & Output 03/29/21 03/30/21 03/30/21 18:59 06:59 18:59 Intake Total 500 Output Total 2175 500 Balance 500 -2175 -500 Intake: Intake, IV Titration 500 Amount Lactated Ringers 1,000 ml 400 @ 50 mls/hr IV .Q20H ANABEL Rx#:[id number] Meropenem 1 gm In Sodium 100 Chloride 0.9% 100 ml @ 33 .3 mls/hr IVPB Q12H ANABEL Rx#:[id number] Output: Drainage 500 500 Right Arm 500 500 Urine 1675 Other: Voiding Method Indwelling Catheter Indwelling Catheter ABP, PAP, CO, CI - Last Documented Arterial Blood Pressure 114/75 - Exam GENERAL DESCRIPTION:[ Patient is awake and alert in no distress] HEENT: [Oral mucosa is dry and no pharyngeal erythema] EYES : [No pallor or scleral icterus] RESPIRATORY SYSTEM: [Unlabored breathing decreased breath sounds at the base] CARDIA VASCULAR SYSTEM: [S1-S2 regular rate and rhythm no murmur] GI: [Abdominal soft there's no tenderness no organomegaly] EXTREMITIES: [Right forearm currently covered with a wound VAC there's no signi ficant swelling no redness] - Labs CBC & Chem 7: 03/29/21 05:27 03/30/21 05:24 Labs: Abnormal Lab Results - Last 24 Hours (Table) 03/29/21 03/29/21 03/30/21 Range/Units 16:58 20:44 05:24 Chloride 114 H (98-107) mmol/L Carbon Dioxide 18 L (22-30) mmol/L BUN 81 H (9-20) mg/dL Creatinine 3.87 H (0.66-1.25) mg/dL POC Glucose (mg/dL) 125 H 132 H (75-99) mg/dL Creatine Kinase 2184 H* (55-170) U/L 03/30/21 03/30/21 Range/Units 06:47 11:08 Chloride (98-107) mmol/L Carbon Dioxide (22-30) mmol/L BUN (9-20) mg/dL Creatinine (0.66-1.25) mg/dL POC Glucose (mg/dL) 101 H 112 H (75-99) mg/dL Creatine Kinase (55-170) U/L Assessment and Plan (1) Compartment syndrome of forearm Current Visit: Yes Status: Acute Priority: High Onset Date: ~03/21/21 Code(s): T79.A19A - TRAUMATIC COMPARTMENT SYNDROME OF UNSP UPPER EXTREMITY, INIT SNOMED Code(s): 716683048 (2) COVID-19 Current Visit: Yes Status: Acute Code(s): U07.1 - COVID-19 SNOMED Code(s): 972093331 Plan: Patient with right forearm compartment syndrome traumatic in this patient with status post fasciotomy and wound VAC application , patient is afebrile and his white count is normalized, blood culture has been negative so far, no local cul tures , patient is currently empirically covered with cefazolin 2-patient did have a positive covid test, no significant respiratory symptoms and the patient is currently on room air, patient to continue with current supportive treatment 3-positive urine culture with ESBL E. coli repeat urinalysis is still positive however the culture subsequently came back negative, Invanz was discontinued Time with Patient: Less than 30
[2021-03-30 16:19] LABS: Glucose,Whole Blood 104 mg/dL (75-99)
[2021-03-30] MEDS: LACTATED RINGERS 1,000 ML IV SCH (16:32)
--- NOTE | 2021-03-30 17:45 | P.PN ---
Subjective Principal diagnosis: Patient is seen for follow-up for acute kidney injury , mostly ATN associated with rhabdo my lysis and IV contrast. His renal function has been slowly improving. Creatinine is down to 3.8 today from peak of 4.8 mg/dL.. Urine output is at 1 L for 24 hours yesterday Patient had surgery for right forearm compartment syndrome and replacement of wound VAC . He has had I&D. Arm looked better yesterday but appears to be slightly more swollen today. No significant complaints today trying to increase oral intake. Objective - Vital Signs Vital signs: Vital Signs Temp 98 F 03/30/21 16:46 Pulse 88 03/30/21 16:46 Resp 18 03/30/21 16:46 BP 152/77 03/30/21 16:46 Pulse Ox 91 L 03/30/21 16:46 Intake & Output 03/29/21 03/30/21 03/30/21 18:59 06:59 18:59 Intake Total 500 Output Total 2175 500 Balance 500 -2175 -500 Intake: Intake, IV Titration 500 Amount Lactated Ringers 1,000 ml 400 @ 50 mls/hr IV .Q20H ANABEL Rx#:[id number] Meropenem 1 gm In Sodium 100 Chloride 0.9% 100 ml @ 33 .3 mls/hr IVPB Q12H ANABEL Rx#:[id number] Output: Drainage 500 500 Right Arm 500 500 Urine 1675 Other: Voiding Method Indwelling Catheter Indwelling Catheter ABP, PAP, CO, CI - Last Documented Arterial Blood Pressure 114/75 - Exam Patient is awake comfortable alert oriented 3. Not in any acute distress. Examination lower extremities shows edema 1+ bilaterally Abdomen is soft nontender Examination of the right upper extremity shows the arm is swollen currently in wound VAC. Patient is not able to move his fingers much. Lungs and heart are not examined as patient is in isolation for coronavirus. - Labs CBC & Chem 7: 03/29/21 05:27 03/30/21 05:24 Labs: Abnormal Lab Results - Last 24 Hours (Table) 03/29/21 03/30/21 03/30/21 Range/Units 20:44 05:24 06:47 Chloride 114 H (98-107) mmol/L Carbon Dioxide 18 L (22-30) mmol/L BUN 81 H (9-20) mg/dL Creatinine 3.87 H (0.66-1.25) mg/dL POC Glucose (mg/dL) 132 H 101 H (75-99) mg/dL Creatine Kinase 2184 H* (55-170) U/L 03/30/21 03/30/21 Range/Units 11:08 16:15 Chloride (98-107) mmol/L Carbon Dioxide (22-30) mmol/L BUN (9-20) mg/dL Creatinine (0.66-1.25) mg/dL POC Glucose (mg/dL) 112 H 104 H (75-99) mg/dL Creatine Kinase (55-170) U/L Assessment and Plan Assessment: 1. Acute kidney injury nonoliguric ATN secondary to rhabdomyolysis/CT contrast. Baseline creatinine 1.0 mg/dL. Renal function is slowly improving. Hold IV fluids as patient appears mildly hypervolemic. 2. Traumatic rhabdomyolysis with crush injury 3. Compartment syndrome of right arm, status post I&D and wound VAC with replacement of wound VAC yesterday with improvement in the right arm 4. Metabolic acidosis associated with acute kidney injury, was improving, IV f luids changed to Ringer lactate and added oral sodium bicarb. 5. Hypocalcemia associated with hyperphosphatemia from rhabdo myolysis and nutritional vitamin D deficiency 6. COVID-19 infection currently maintained on room air. Chest x-ray shows bilateral mild infiltrates Plan: 1. DC IV fluids 2. Encourage increased oral intake. 3. Add vitamin D 4. Continue with IV antibiotics 5. No need for renal replacement therapy. Renal function has been improving
[2021-03-30] MEDS ORDERED: ERGOCALCIFEROL 1,250 MCG (50,000 IU) CAPSULE PO SCH (18:00)
[2021-03-30] MEDS: HYDROcodone/APAP 5-325MG 1 EACH TAB PO PRN (19:12)
[2021-03-30 20:47] LABS: Glucose,Whole Blood 105 mg/dL (75-99)
[2021-03-30] MEDS: INSULIN DETEMIR (LEVEMIR) 100 UNIT/ML SYR SQ SCH (21:02)
--- NOTE | 2021-03-30 21:29 | MR ---
EXAMINATION TYPE: MR cervical spine wo con DATE OF EXAM: 03/30/2021 COMPARISON: CT C-spine 03/21/2019. HISTORY: Severe rt arm weakness, plexopathy. TECHNIQUE: Multiplanar, multisequence images of the cervical spine were acquired without contrast. Motion limits evaluation. C2-C3: No disc bulge/herniation or protrusion. No Canal stenosis. Uncovertebral and facet arthropath y results in moderate right neural foraminal stenosis. The left neural foramen is patent. C3-C4: Disc osteophyte complex with without spinal canal stenosis. No disc bulge/herniation or protru jaquelin. Uncovertebral and facet arthropathy results in moderate right and mild left neural foraminal st enosis. C4-C5: Disc osteophyte complex with mild spinal canal stenosis. No disc bulge/herniation or protrusi on. Uncovertebral and facet arthropathy results in moderate right and to moderate left neural foramin al stenosis. C5-C6: Eccentric right Disc osteophyte complex with mild spinal canal stenosis. No disc bulge/hernia tion or protrusion. Uncovertebral and facet arthropathy results in severe right and moderate left susu ral foraminal stenosis. C6-C7: Disc osteophyte complex with mild spinal canal stenosis. No disc bulge/herniation or protrusio n. Uncovertebral and facet arthropathy results in severe right and moderate left neural foraminal jaime nosis. C7-T1: Degeneration changes resulting in severe right foraminal stenosis. The left neural foramen is patent. A spinal canal is patent. Cervical segments are intact. There is normal alignment. Cervical spinal cord is of normal signal. Craniovertebral junction relationships are within normal limits. IMPRESSION: 1. Multilevel disc degeneration with neural foraminal stenosis worse on the right. 2. Severe right neural foraminal stenosis at C5-C6, C6-C7 and C7-T1 and moderate right neural foramin al stenosis at C3-C4 and C4-C5. 3. Moderate left neural foraminal stenosis at C4-C5, C5-C6 and C6-C7.
--- NOTE | 2021-03-30 22:22 | MR ---
MRI BRACHIAL PLEXUS EXTREMITY RIGHT W/O GADOLINIUM INDICATION: Patient age:Male; 70 years old; Reason for study: Severe rt arm weakness, plexopathy R/O uropathy COMPARISON: None TECHNIQUE: Coronal T2-weighted, STIR, T1 weighted, axial STIR MR images of the neck with attention to the brachial plexus as well as sagittal T1-weighted MR images of the right brachial plexus were obt ained. FINDINGS: Exam significantly limited by motion and poor [id number] ratio. Brachial plexus: Within the limitations of the exam, the right brachial plexus roots, trunks, and proximal aspects of the cords are without any focal mass effect upon it or abnormal signal intensity compared to the left brachial plexus. Visualized left brachial plexus is grossly unremarkable extending from the nerve roots to terminal br anches. The brachial plexus appears symmetrical. No focal mass or abnormal T2 signal is seen involving the ri ght brachial plexus. Severe multilevel right neural foraminal narrowing secondary to degenerative disc disease changes. IMPRESSION: 1. Severe multilevel right neural foraminal narrowing secondary to degenerative disc disease changes. This was better characterized on MRI C spine same day. 2. Extremely limited exam of the brachial plexus, no obvious abnormality.
[2021-03-31] MEDS: HYDROcodone/APAP 5-325MG 1 EACH TAB PO PRN ×2 (01:35→19:49)
[2021-03-31] MEDS: LEVOTHYROXINE 75 MCG TAB PO SCH (05:47)
[2021-03-31 06:53] LABS: HCT 29.8 % (39.0-53.0); MCHC 33.6 g/dL (31.0-37.0); MCV 92.3 fL (80.0-100.0); Platelet Count 204 k/uL (150-450); RBC 3.23 m/uL (4.30-5.90); RDW 15.1 % (11.5-15.5); WBC 7.5 k/uL (3.8-10.6)
[2021-03-31 07:02] LABS: ALT 29 U/L (4-49); African American GFR (CKD) 19 (>60 ml/min/1.73 sqM); Albumin/Globulin Ratio 0.8; Anion Gap 10 mmol/L; Blood Urea Nitrogen 89 mg/dL (9-20); Calcium 9.2 mg/dL (8.4-10.2); Carbon Dioxide 16 mmol/L (22-30); Chloride 116 mmol/L (98-107); Globulin 2.4 g/dL; Glucose 90 mg/dL (74-99); Non-African American GFR(CKD) 16 (>60 ml/min/1.73 sqM); Sodium 142 mmol/L (137-145); Total Protein 4.4 g/dL (6.3-8.2)
[2021-03-31 07:05] LABS: Creatine Kinase 1283 U/L (55-170)
[2021-03-31 07:06] LABS: AST 255 U/L (17-59); Alkaline Phosphatase 51 U/L (38-126); Potassium 4.4 mmol/L (3.5-5.1)
[2021-03-31 07:15] LABS: Glucose,Whole Blood 85 mg/dL (75-99)
[2021-03-31] MEDS: INSULIN ASPART (NovoLOG) 100 UNIT/ML VIAL SQ SCH ×4 (07:22→21:01)
[2021-03-31] MEDS: CALCIUM CARBONATE 500 MG CHEWABLE PO SCH ×3 (08:52→21:08)
[2021-03-31] MEDS: MULTIVITAMINS, THERA 1 EACH TAB PO SCH (08:52)
[2021-03-31] MEDS: ZINC SULFATE 220 MG CAP PO SCH (08:52)
[2021-03-31] MEDS: CYANOCOBALAMIN 500 MCG TAB PO SCH (08:52)
[2021-03-31] MEDS: CARBIDOPA-LEVODOPA 25-100 MG 1 EACH TAB PO SCH ×3 (08:52→21:06)
[2021-03-31] MEDS: SODIUM BICARBONATE TAB 650 MG TAB PO SCH ×2 (08:52→19:49)
[2021-03-31] MEDS: HEPARIN SODIUM,PORCINE/PF 5,000 UNIT/0.5 ML SYRINGE SQ SCH ×2 (08:53→19:50)
[2021-03-31] MEDS: ASCORBIC ACID 500 MG TAB PO SCH (08:53)
[2021-03-31] MEDS: TAMSULOSIN 0.4 MG CAP.ER.24H PO SCH (08:53)
[2021-03-31] MEDS: PREGABALIN 75 MG CAP PO SCH ×3 (08:53→21:06)
--- NOTE | 2021-03-31 10:24 | P.PN ---
Subjective Patient is seen in follow-up for acute kidney injury. Renal function gradually improving. Nonoliguric. CK levels trending down. Blood pressure stable. On 2 L nasal cannula. Denies chest pain or shortness of breath. Oral intake.. Vital signs are stable. General: On nasal cannula. HEENT: Head exam is unremarkable. LUNGS: Breath sounds decreased. HEART: Rate and Rhythm are regular. ABDOMEN: Soft, no distention. EXTREMITITES: 1+ edema. Objective - Vital Signs Vital signs: Vital Signs Temp 98.2 F 03/31/21 10:00 Pulse 83 03/31/21 10:00 Resp 16 03/31/21 10:00 BP 116/78 03/31/21 10:00 Pulse Ox 94 L 03/31/21 10:00 Intake & Output 03/30/21 03/31/21 03/31/21 18:59 06:59 18:59 Output Total 500 2101 Balance -500 -2101 Output: Drainage 500 450 Right Arm 500 450 Urine 1650 Stool 1 Other: Voiding Method Indwelling Catheter Indwelling Catheter # Bowel Movements 2 ABP, PAP, CO, CI - Last Documented Arterial Blood Pressure 114/75 - Labs CBC & Chem 7: 03/31/21 06:27 03/31/21 06:27 Labs: Abnormal Lab Results - Last 24 Hours (Table) 03/30/21 03/30/21 03/30/21 Range/Units 11:08 16:15 20:45 RBC (4.30-5.90) m/uL Hgb (13.0-17.5) gm/dL Hct (39.0-53.0) % Chloride (98-107) mmol/L Carbon Dioxide (22-30) mmol/L BUN (9-20) mg/dL Creatinine (0.66-1.25) mg/dL POC Glucose (mg/dL) 112 H 104 H 105 H (75-99) mg/dL AST (17-59) U/L Creatine Kinase (55-170) U/L Total Protein (6.3-8.2) g/dL Albumin (3.5-5.0) g/dL 03/31/21 03/31/21 Range/Units 06:27 06:27 RBC 3.23 L (4.30-5.90) m/uL Hgb 10.0 L (13.0-17.5) gm/dL Hct 29.8 L (39.0-53.0) % Chloride 116 H (98-107) mmol/L Carbon Dioxide 16 L (22-30) mmol/L BUN 89 H (9-20) mg/dL Creatinine 3.56 H (0.66-1.25) mg/dL POC Glucose (mg/dL) (75-99) mg/dL AST 255 H (17-59) U/L Creatine Kinase 1283 H* (55-170) U/L Total Protein 4.4 L (6.3-8.2) g/dL Albumin 2.0 L (3.5-5.0) g/dL Assessment and Plan Plan: Assessment: 1. Acute kidney injury secondary to ATN secondary to rhabdomyolysis. Renal function gradually improving. Creatinine 3.56 today. 2. Rhabdomyolysis secondary to fall and crush injury. CK levels trending down. 3. Right forearm compartment syndrome status post fasciotomy and wound VAC placement. 4. Hyperkalemia secondary to acute kidney injury and rhabdomyolysis. Resolved. 5. Metabolic acidosis secondary to acute kidney injury and IV fluids. On oral bicarbonate. 6. Diabetes mellitus. 7. COVID-19 infection. Plan: Off IV fluids. Encourage oral intake. Increase dose of oral bicarbonate. Avoid nephrotoxins. Continue to monitor renal function and urine output.
--- NOTE | 2021-03-31 11:40 | P.PN ---
Subjective Progress Note Date: 03/31/21 Principal diagnosis: Rhabdomyolysis patient continued to be hemodynamic a stable complaining of right upper extremity pain but seems to be at baseline mental status alert oriented 4. Patient in no acute distress denying chest pain or shortness breath and tolerating diet without difficulties. Objective - Vital Signs Vital signs: Vital Signs Temp 98.2 F 03/31/21 10:00 Pulse 83 03/31/21 10:00 Resp 16 03/31/21 10:00 BP 116/78 03/31/21 10:00 Pulse Ox 94 L 03/31/21 10:00 Intake & Output 03/30/21 03/31/21 03/31/21 18:59 06:59 18:59 Output Total 500 2101 Balance -500 -2101 Output: Drainage 500 450 Right Arm 500 450 Urine 1650 Stool 1 Other: Voiding Method Indwelling Catheter Indwelling Catheter # Bowel Movements 2 ABP, PAP, CO, CI - Last Documented Arterial Blood Pressure 114/75 - Exam Gen.: in stated age, no acute distress Heart: Normal S1-S2 Lungs: Clear to auscultation bilaterally Abdomen: Soft, no tenderness, positive bowel sounds in all 4 quadrant no guarding or rebound Skin: No new rash Psych: Alert and oriented 3 Neuro: No focal deficit Right upper extremity tenderness to touch with wound VAC in place. Pulses positive. Severe swelling noted and bruising - Labs CBC & Chem 7: 03/31/21 06:27 03/31/21 06:27 Labs: Abnormal Lab Results - Last 24 Hours (Table) 03/30/21 03/30/21 03/31/21 Range/Units 16:15 20:45 06:27 RBC 3.23 L (4.30-5.90) m/uL Hgb 10.0 L (13.0-17.5) gm/dL Hct 29.8 L (39.0-53.0) % Chloride (98-107) mmol/L Carbon Dioxide (22-30) mmol/L BUN (9-20) mg/dL Creatinine (0.66-1.25) mg/dL POC Glucose (mg/dL) 104 H 105 H (75-99) mg/dL AST (17-59) U/L Creatine Kinase (55-170) U/L Total Protein (6.3-8.2) g/dL Albumin (3.5-5.0) g/dL 03/31/21 Range/Units 06:27 RBC (4.30-5.90) m/uL Hgb (13.0-17.5) gm/dL Hct (39.0-53.0) % Chloride 116 H (98-107) mmol/L Carbon Dioxide 16 L (22-30) mmol/L BUN 89 H (9-20) mg/dL Creatinine 3.56 H (0.66-1.25) mg/dL POC Glucose (mg/dL) (75-99) mg/dL AST 255 H (17-59) U/L Creatine Kinase 1283 H* (55-170) U/L Total Protein 4.4 L (6.3-8.2) g/dL Albumin 2.0 L (3.5-5.0) g/dL Assessment and Plan Assessment: 1. Right forearm compartment syndrome status post fasciotomy on March 21 with debridement and irrigation and March 23 and followed by March 26 with wound VAC placement. 2. Rhabdomyolysis seems to be improving. 3. Acute kidney injury, resolving. 4. COVID-19 infection completed 10 days of isolation. 5. Encephalopathy, seems to be improving area 6. Obesity with underlying sleep apnea. 7. Diabetes like this type II, controlled. 8. History of ESBL UTI. Patient is improving overall plan to go to the operating room again on Friday and I was discussed with the nursing staff. Patient will be maintained on current antibiotics. Continue with close monitoring to hemodynamic and physical examination for the right upper extremity along with pulse check and I was discussed with nursing staff. Will follow-up with general surgery recommendation. We will continue with infectious disease recommendation. Nephrology evaluated the patient and recommended conservative management at this point and avoid IV hydration and encourage oral intake. I would like to follow- up with infectious disease regarding discontinuation of isolation as patient completed 10 days and currently on room air without any symptoms related to his COVID-19. That was discussed with nursing staff at the bedside.
[2021-03-31 11:45] LABS: Glucose,Whole Blood 156 mg/dL (75-99)
--- NOTE | 2021-03-31 12:03 | P.PN ---
Progress Note - Text Progress Note Date: 03/31/21 Orthopedics: History of present illness: Patient is a very pleasant 70-year-old male who is seen and examined at the bedside for follow up evaluation of his right upper extremity. Since being seen and examined yesterday he has not had any significant change in his symptoms. He was admitted and is being managed for right upper extremity compartment syndrome. Patient is status post irrigation of the right forearm compartment fasciotomy wounds and replacement of the wound vac by Dr. Paez. This is postoperative day #3 from the most recent irrigation and debridement and wound VAC placement as well as closure of the dorsal wound and placement of a Prevena wound VAC. Patient states he continues to have significant right upper extremity weakness and some reduced sensation with his right upper extremity. Overall, his symptoms have been controlled as compared to yesterday. He has been able to continue to keep his wound vacs intact without difficulty. Nursing states they have been able to obtain more canisters for his wound vacs. They h ave been able to changes canisters approximately twice per day. Patient states he had been lying on his right arm for approximately 2-1/2 days after sustaining a fall and being pinned between his bed and nightstand. He states prior to this fall he had no significant difficulties with his right upper extremity. He was not experiencing any significant right upper extremity weakness or radiculopat hy. He states his right upper extremity function well. Since lying on his arm for 2-1/2 days he has significant weakness of his right upper extremity. He has remained in bed. He has a Gerardo catheter intact. He has no other complaints at the bedside. He is currently scheduled to undergo repeat irrigation debridement with wound VAC change this coming 04/02/2021. He may keep his wound vacs intact until that time. He will continue with canister changes as needed. Nursing states patient is being cleared out of COVID-19 protocol. He continues to be multiple medical providers during his admission including neurology, nephrology, medicine, infectious disease, and wound care for multiple medical diagnoses including compartment syndrome of the right upper extremity, compressive neuropathy right upper extremity, status post fall, urinary tract infection, lactic acidosis, acute kidney injury, Parkinson's disease, acute rhabdomyolysis, hyperkalemia, COVID-19 infection, and distal nondisplaced right clavicle fracture. Since being seen in exam yesterday he has had MRI imaging of the right brachial plexus in the cervical spine. Physical Exam: Patient is awake, alert, and oriented 3 Vital signs stable Adequate chest excursion with deep inspiration and expiration Some tenderness to palpation over the right shoulder and over the right bicep Reduced sensation with palpation over the right bicep and forearm Patient is unable to feel significant sensation to palpation over the right hand Vascular intact right upper extremity I am able to palpate week radial and ulnar pulse Fingers of the right upper extremity are warm and soft Some swelling over the entire right upper extremity Significant global weakness but his right upper extremity Patient is unable to perform any significant right upper extremity active range of motion Prevena wound VAC in place over the distal forearm Wound VAC and placed over the volar forearm Pertinent studies: MRI of the cervical spine taken on 03/30/2021: C2-3 uncovertebral arthropathy and facet arthropathy resulting in moderate right neural foraminal stenosis; C3- 4 disc osteophyte complex with uncovertebral and facet arthropathy resulting in moderate right neural foraminal stenosis and mild left neural foraminal stenosis; C4-5 disc osteophyte complex with uncovertebral and facet arthropathy resulting in moderate bilateral neural foraminal stenosis and mild central stenosis; C5-6 eccentric right disc osteophyte complex with uncovertebral and facet arthropathy resulting in severe right and moderate left neuroforaminal stenosis with mild central stenosis; C6-7 disc osteophyte complex with uncovertebral and facet arthropathy resulting in moderate right and severe left neural foraminal stenosis with mild central stenosis; C7-T1 degenerative changes with severe right neural foraminal stenosis; no obvious cord signal change MRI of the right brachial plexus taken on 03/30/2021: Severe multilevel right neural foraminal narrowing secondary to degenerative changes better visualized on CT imaging of the cervical spine; the right brachial plexus bruits, trunks, and proximal aspects of the cords are without any focal mass effect upon and or abnormal signal intensity compared to the left brachial plexus; visualized left brachial plexus is grossly unremarkable; brachial plexus appears symmetrical; no focal mass or abnormal T2 signal is seen involving the right brachial plexus Assessment: Compartment syndrome right upper extremity Compressive neuropathy right upper extremity Status post fall Acute global right upper extremity weakness Acute right upper extremity sensation C5-6 and C7-T1 severe right neural foraminal stenosis C3-4, C4-5, and C6-7 moderate right neural foraminal stenosis C4-5, C5-6, and C6-7 mild central stenosis Multilevel cervical degenerative disc disease Urinary tract infection Lactic acidosis Acute kidney injury Parkinson's disease Acute rhabdomyolysis Hyperkalemia COVID-19 infection Distal minimally displaced right clavicle fracture Diabetes mellitus Obesity Plan: 1. Patient will currently plan to continue conservative treatment for his right upper extremity compartment syndrome with compressive neuropathy over the weekend. He is currently scheduled to undergo repeat irrigation debridement with wound VAC change this coming 04/02/2021. We will plan to keep his wound vacs intact until that time. He will continue with canister changes as needed and currently have been changed twice per day. He will also continue conservative treatment regards to his right minimally displaced clavicle fracture. He should remain non-weightbearing with the right upper extremity. Currently, he is unable to perform any active range of motion with the right upper extremity as he has significant weakness globally with the right upper extremity. We did discuss his recent MRI imaging of his right brachial plexus and cervical spine. There were not any significant findings in regards to his right brachial plexus. He does have significant degenerative changes at his cervical spine with multilevel right-sided foraminal stenosis. Patient states prior to laying on his right side for 2-1/2 days he was not experiencing any significant right upper extremity weakness or radiculopathy. He had good active range of motion of his right upper extremity without difficulty. We did discuss his degenerative changes of his cervical spine but that his symptoms are most likely in relation to the acute compartment syndrome and compressive neuropathy he is experiencing after laying on his right arm for 2-1/2 days. We did discuss we will continue to monitor and manage his right upper extremity. We did discuss based on his progress there is a possibility he may need further intervention and treatment including and even including the possibility of surgical intervention at his cervical spine if his symptoms fail to improve with treatment and it seems that his significant global right upper extremity weakness is coming more from his cervical spine rather than his compressive neuropathy and compartment syndrome. It seems currently that his findings on cervical MRI imaging are more chronic in nature as the patient was not experiencing any significant right upper extremity weakness or radiculopathy prior to his fall and that his current symptoms are more in relation as a result of his prolonged lying on his right upper extremity resulting in right upper extremity compartment syndrome and compressive neuropathy. We would not currently plan for acute surgical intervention at his cervical spine as his symptoms currently appear to be stemming more from his recent episode of lying on his right upper extremity for 2-1/2 resulting in compartment syndrome and compressive neuropathy. Patient feels this is a good plan of care. Patient could benefit with steroid medication. He is diabetic and on insulin. Nursing states his glucose levels have been well-controlled. We will plan to prescribe Solu-Medrol 60 mg IV every 12 hours to see if this can help improve his right upper extremity weakness. We'll continue with this medication if okayed by medicine. This medication may be discontinued by medicine or other medical provider if necessary. We are not currently planning for any specific treatment in regards to his distal minimally displaced right clavicle fracture and we'll continue with conservative care. We will not plan for bracing at this time. He is not currently complaining of any significant pain at his right clavicle. 2. Patient will continue with multiple other medical providers including including neurology, nephrology, medicine, infectious disease, and wound care for multiple medical diagnoses including compartment syndrome of the right upper extremity, compressive neuropathy right upper extremity, status post fall, urinary tract infection, lactic acidosis, acute kidney injury, Parkinson's disease, acute rhabdomyolysis, hyperkalemia, COVID-19 infection, diabetes mellitus, obesity, and distal nondisplaced right clavicle fracture
[2021-03-31] MEDS: methylPREDNISolone SOD SUCCI 125 MG/2 ML VIAL IV SCH ×2 (12:36→21:08)
[2021-03-31] MEDS: LACTATED RINGERS 1,000 ML IV SCH (12:36)
[2021-03-31 16:42] LABS: Glucose,Whole Blood 135 mg/dL (75-99)
--- NOTE | 2021-03-31 19:14 | P.PN ---
Subjective Progress Note Date: 03/31/21 03/31/2021: This is a Tele-neurology followup performed today on 03/31/2021. Patient is more alert and awake, less encephalopathic. Patient states that he is able to move his right arm slightly. Continues to have swelling in the right upper limb. Patient has been started on Solu-Medrol 60 mg every 12 hours. 03/29/2021: Neurology was reconsulted for evaluation of possible brachial plexus injury right upper extremity. Patient initially seen by Dr. Prince Wade. Please refer to his note for details. Patient is a 70-year-old male, who was brought into the hospital after the patient was strained between bed and nystatin for 2 days, and noticed to have compartment syndrome right forearm, status post fasciotomy 3 patient was taken back to the OR on 03/23/2021 and is status post debridement of the devitalized tissue and reapplication of the wound VAC, and did have a washout and change of the wound VAC on 03/27/2021 and 03/28/2021. Patient has been diagnosed with right forearm compartment syndrome, Covid-19 infection. Patient tells me that he came to the hospital because he was given too much exercises, "nurses forced exercises yesterday". He knows that he has been in the hospital for one and a half weeks. Patient states that he cannot move his right arm. He admits that he can move his lower extremities without issues. He admits to having neck soreness 8/10, low back pain 8/10. Patient states his whole right upper limb is hurting rating 8/10. Right arm is numb. Denies any numbness of the left arm. Denies any pain in the left upper activity. Patient admits to having diabetes for 10 years. He does not smoke. He drinks alcohol occasionally. Objective - Vital Signs Vital signs: Vital Signs Temp 98.2 F 03/31/21 10:00 Pulse 83 03/31/21 10:00 Resp 16 03/31/21 10:00 BP 116/78 03/31/21 10:00 Pulse Ox 94 L 03/31/21 10:00 Intake & Output 03/30/21 03/31/21 03/31/21 18:59 06:59 18:59 Output Total 500 2101 Balance -500 -2101 Output: Drainage 500 450 Right Arm 500 450 Urine 1650 Stool 1 Other: Voiding Method Indwelling Catheter Indwelling Catheter # Bowel Movements 2 ABP, PAP, CO, CI - Last Documented Arterial Blood Pressure 114/75 - Exam On examination patient is an elderly male, in no acute distress. He is more alert and awake. He is less encephalopathic. No aphasia or dysarthria. Speech and language functions are normal. On cranial examination pupils are equal, round and reacting to light. No Yael's. Extraocular muscles are intact. Face is symmetric, tongue protrudes to the midline. Palatal elevation and sensation normal. Hearing appears normal. Shoulder shrug significantly decreased on the right. On muscle strength testing, patient able to move his right arm proximally very minimally. No movement at the fingers, wrist, elbow. Sensory touch is decreased in the entire right upper extremity as compared to the left upper extremity. Gait not tested. - Labs CBC & Chem 7: 03/31/21 06:27 03/31/21 06:27 Labs: Abnormal Lab Results - Last 24 Hours (Table) 03/30/21 03/30/21 03/31/21 Range/Units 16:15 20:45 06:27 RBC 3.23 L (4.30-5.90) m/uL Hgb 10.0 L (13.0-17.5) gm/dL Hct 29.8 L (39.0-53.0) % Chloride (98-107) mmol/L Carbon Dioxide (22-30) mmol/L BUN (9-20) mg/dL Creatinine (0.66-1.25) mg/dL POC Glucose (mg/dL) 104 H 105 H (75-99) mg/dL AST (17-59) U/L Creatine Kinase (55-170) U/L Total Protein (6.3-8.2) g/dL Albumin (3.5-5.0) g/dL 03/31/21 03/31/21 Range/Units 06:27 11:44 RBC (4.30-5.90) m/uL Hgb (13.0-17.5) gm/dL Hct (39.0-53.0) % Chloride 116 H (98-107) mmol/L Carbon Dioxide 16 L (22-30) mmol/L BUN 89 H (9-20) mg/dL Creatinine 3.56 H (0.66-1.25) mg/dL POC Glucose (mg/dL) 156 H (75-99) mg/dL AST 255 H (17-59) U/L Creatine Kinase 1283 H* (55-170) U/L Total Protein 4.4 L (6.3-8.2) g/dL Albumin 2.0 L (3.5-5.0) g/dL Assessment and Plan Assessment: Right brachial plexopathy. Patient's right arm is entirely weak proximally and distally in all myotomes. Right forearm compartment syndrome status post fasciotomy 4 (as result him rolling over from the bed while sleeping, and was pinned between his back and the nightstand and stayed there for 2 days) Acute rhabdomyolysis secondary due to injury Acute COVID-19 infection Altered mental status due to toxic-metabolic encephalopathy (MINI, elevated LFT's, Dilaudid use)---improved Acute kidney injury due to fall--now trending downward Possible acute urinary tract infection suspicious for hairline fracture nondisplaced distal right clavicle reported on x-ray: Likely from from his trauma Normal CTA of head and neck Diabetes Mellitus and his sugar is uncontrolled (last HbA1c is 7.2 on 10/2020) Parkinson's disease Low normal Vitamin B12 (270 on 10/2020) 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 Plan: MRI of the cervical spine without contrast revealed multilevel disc degeneration with neural foraminal stenosis worse on the right. Severe right neural foraminal stenosis at C5 6, C6 7 and C7-T1 and moderate right neural foraminal stenosis at C3 4 and C4 5. I personally reviewed MRI in the computer, and appears the worst level is C5 6 on the right. No significant central spinal stenosis. This however would not explain the global weakness of the right upper extremity, likely due to brachial plexus compression injury from laying on the right side for over 2 days. MRI of the right brachial plexus was extremely limited exam of the brachial plexus, no obvious abnormality. Agree with steroids at current dose of Solu-Medrol 60 mg IV 12 hours. (Higher doses may impair wound healing). Recommend EMG with NCS of right upper extremity as outpatient when possible. Continue home dose of Sinemet 39292 1-1/2 tablet 3 times a day. Continue vitamin B12 1000 g daily since he has low vitamin B12 from October 2020 Infection disease is consulted for wound care nephrology team is consulted. PT, OT are consulted We'll defer the rest of the medical management to the primary team Upon discharge the patient needs to follow-up with his neurologist (Dr. Erica Tamayo) within 1-2 weeks. Recommend further investigation whether the patient truly has normal pressure hydrocephalus as outpatient. Please reconsult neurology if any further concerns. Dr. Justin Wade will be on service from Friday.
[2021-03-31 20:33] LABS: Glucose,Whole Blood 187 mg/dL (75-99)
[2021-03-31] MEDS: INSULIN DETEMIR (LEVEMIR) 100 UNIT/ML SYR SQ SCH (21:08)
[2021-04-01] MEDS: LEVOTHYROXINE 75 MCG TAB PO SCH (05:38)
[2021-04-01] MEDS: HYDROcodone/APAP 5-325MG 1 EACH TAB PO PRN (05:38)
[2021-04-01 06:53] LABS: African American GFR (CKD) 20 (>60 ml/min/1.73 sqM); Anion Gap 10 mmol/L; Blood Urea Nitrogen 98 mg/dL (9-20); Calcium 8.9 mg/dL (8.4-10.2); Carbon Dioxide 14 mmol/L (22-30); Chloride 117 mmol/L (98-107); Glucose 180 mg/dL (74-99); Magnesium 2.2 mg/dL (1.6-2.3); Non-African American GFR(CKD) 17 (>60 ml/min/1.73 sqM); Potassium 4.6 mmol/L (3.5-5.1); Sodium 141 mmol/L (137-145)
[2021-04-01 07:30] LABS: Glucose,Whole Blood 202 mg/dL (75-99)
[2021-04-01] MEDS: HEPARIN SODIUM,PORCINE/PF 5,000 UNIT/0.5 ML SYRINGE SQ SCH ×2 (08:37→20:59)
[2021-04-01] MEDS: TAMSULOSIN 0.4 MG CAP.ER.24H PO SCH (08:37)
[2021-04-01] MEDS: CALCIUM CARBONATE 500 MG CHEWABLE PO SCH ×3 (08:37→20:58)
[2021-04-01] MEDS: MULTIVITAMINS, THERA 1 EACH TAB PO SCH (08:37)
[2021-04-01] MEDS: SODIUM BICARBONATE TAB 650 MG TAB PO SCH ×2 (08:37→20:59)
[2021-04-01] MEDS: ASCORBIC ACID 500 MG TAB PO SCH (08:37)
[2021-04-01] MEDS: ZINC SULFATE 220 MG CAP PO SCH (08:37)
[2021-04-01] MEDS: PREGABALIN 75 MG CAP PO SCH ×3 (08:37→20:57)
[2021-04-01] MEDS: CYANOCOBALAMIN 500 MCG TAB PO SCH (08:37)
[2021-04-01] MEDS: methylPREDNISolone SOD SUCCI 125 MG/2 ML VIAL IV SCH ×2 (08:38→20:59)
[2021-04-01] MEDS: CARBIDOPA-LEVODOPA 25-100 MG 1 EACH TAB PO SCH ×3 (08:38→20:57)
[2021-04-01] MEDS: INSULIN ASPART (NovoLOG) 100 UNIT/ML VIAL SQ SCH ×4 (08:38→20:57)
--- NOTE | 2021-04-01 09:36 | P.PN ---
Subjective Progress Note Date: 04/01/21 Principal diagnosis: Rhabdomyolysis Patient continued to be hemodynamic a stable no major events reported by nursing staff patient is alert and oriented 4 at baseline mental status denying pain and stated that it's in the fifth control Objective - Vital Signs Vital signs: Vital Signs Temp 97.7 F 04/01/21 05:42 Pulse 67 04/01/21 05:42 Resp 17 04/01/21 05:42 BP 114/66 04/01/21 05:42 Pulse Ox 92 L 04/01/21 05:42 Intake & Output 03/31/21 04/01/21 04/01/21 18:59 06:59 18:59 Intake Total 210 Output Total 1000 1000 Balance -790 -1000 Intake: Intake, IV Titration 210 Amount Lactated Ringers 1,000 ml 160 @ 20 mls/hr IV .Q24H [facility] Rx#:[id number] ceFAZolin 2 gm In Sodium 50 Chloride 0.9% 50 ml @ 100 mls/hr IVPB Q12HR [facility] Rx #:[id number] Output: Drainage 150 Right Arm 50 Right Lower Arm 100 Urine 1000 850 Other: Voiding Method Indwelling Catheter Indwelling Catheter ABP, PAP, CO, CI - Last Documented Arterial Blood Pressure 114/75 - Exam Gen.: in stated age, no acute distress Heart: Normal S1-S2 Lungs: Clear to auscultation bilaterally Abdomen: Soft, no tenderness, positive bowel sounds in all 4 quadrant no guardi ng or rebound Skin: No new rash Psych: Alert and oriented 3 Neuro: No focal deficit Right upper extremity tenderness to touch with wound VAC in place. Pulses positive. Severe swelling noted and bruising - Labs CBC & Chem 7: 03/31/21 06:27 04/01/21 06:06 Labs: Abnormal Lab Results - Last 24 Hours (Table) 03/31/21 03/31/21 03/31/21 Range/Units 11:44 16:41 20:31 Chloride (98-107) mmol/L Carbon Dioxide (22-30) mmol/L BUN (9-20) mg/dL Creatinine (0.66-1.25) mg/dL Glucose (74-99) mg/dL POC Glucose (mg/dL) 156 H 135 H 187 H (75-99) mg/dL 04/01/21 04/01/21 Range/Units 06:06 07:29 Chloride 117 H (98-107) mmol/L Carbon Dioxide 14 L (22-30) mmol/L BUN 98 H (9-20) mg/dL Creatinine 3.48 H (0.66-1.25) mg/dL Glucose 180 H (74-99) mg/dL POC Glucose (mg/dL) 202 H (75-99) mg/dL Assessment and Plan Assessment: 1. Right forearm compartment syndrome status post fasciotomy on March 21 with debridement and irrigation and March 23 and followed by March 26 with wound VAC placement. 2. Rhabdomyolysis seems to be improving. 3. Acute kidney injury, resolving. 4. COVID-19 infection completed 10 days of isolation. 5. Encephalopathy, seems to be improving area 6. Obesity with underlying sleep apnea. 7. Diabetes like this type II, controlled. 8. History of ESBL UTI. Patient was evaluated by infectious disease who recommended continuation of IV antibiotics at this point and continue with isolation per hospital policy due to COVID-19. Patient is tolerating wound VAC without difficulties and aware with the possible irrigation in the morning by surgery area did would keep nothing by mouth after midnight. We will continue with tight glycemic control. We'll optimize his risk factors and continue with DVT prophylaxis per surgery recommendation. Plan discussed with nursing staff at the bedside
[2021-04-01] MEDS ORDERED: SODIUM BICARB 8.4% 50 ML SYR (1 MEQ/ML) IV STA (09:56)
--- NOTE | 2021-04-01 10:01 | P.PN ---
Subjective Patient is seen in follow-up for acute kidney injury. Renal function fairly stable. Nonoliguric. CK levels trending down. Blood pressure stable. On 2 L nasal cannula. Denies chest pain or shortness of breath. Oral intake fair. Noted to be acidotic with a bicarb level of 14 today. Vital signs are stable. General: On nasal cannula. HEENT: Head exam is unremarkable. LUNGS: Breath sounds decreased. HEART: Rate and Rhythm are regular. ABDOMEN: Soft, no distention. EXTREMITITES: 1+ edema. Objective - Vital Signs Vital signs: Vital Signs Temp 97.7 F 04/01/21 05:42 Pulse 67 04/01/21 05:42 Resp 17 04/01/21 05:42 BP 114/66 04/01/21 05:42 Pulse Ox 92 L 04/01/21 05:42 Intake & Output 03/31/21 04/01/21 04/01/21 18:59 06:59 18:59 Intake Total 210 Output Total 1000 1000 Balance -790 -1000 Intake: Intake, IV Titration 210 Amount Lactated Ringers 1,000 ml 160 @ 20 mls/hr IV .Q24H [facility] Rx#:[id number] ceFAZolin 2 gm In Sodium 50 Chloride 0.9% 50 ml @ 100 mls/hr IVPB Q12HR [facility] Rx #:[id number] Output: Drainage 150 Right Arm 50 Right Lower Arm 100 Urine 1000 850 Other: Voiding Method Indwelling Catheter Indwelling Catheter ABP, PAP, CO, CI - Last Documented Arterial Blood Pressure 114/75 - Labs CBC & Chem 7: 03/31/21 06:27 04/01/21 06:06 Labs: Abnormal Lab Results - Last 24 Hours (Table) 03/31/21 03/31/21 03/31/21 Range/Units 11:44 16:41 20:31 Chloride (98-107) mmol/L Carbon Dioxide (22-30) mmol/L BUN (9-20) mg/dL Creatinine (0.66-1.25) mg/dL Glucose (74-99) mg/dL POC Glucose (mg/dL) 156 H 135 H 187 H (75-99) mg/dL 04/01/21 04/01/21 Range/Units 06:06 07:29 Chloride 117 H (98-107) mmol/L Carbon Dioxide 14 L (22-30) mmol/L BUN 98 H (9-20) mg/dL Creatinine 3.48 H (0.66-1.25) mg/dL Glucose 180 H (74-99) mg/dL POC Glucose (mg/dL) 202 H (75-99) mg/dL Assessment and Plan Plan: Assessment: 1. Acute kidney injury secondary to ATN secondary to rhabdomyolysis. Renal function gradually improving. Creatinine 48 today. 2. Rhabdomyolysis secondary to fall and crush injury. CK levels trending down. 3. Right forearm compartment syndrome status post fasciotomy and wound VAC placement. 4. Hyperkalemia secondary to acute kidney injury and rhabdomyolysis. Resolved. 5. Metabolic acidosis secondary to acute kidney injury and IV fluids. On oral bicarbonate. 6. Diabetes mellitus. 7. COVID-19 infection. Plan: Off IV fluids. Encouraged oral intake. Further increase dose of oral bicarbonate. I will also give him 3 A of sodium bicarbonate IV push. Avoid nephrotoxins. Continue to monitor renal function and urine output.
[2021-04-01 11:51] LABS: Glucose,Whole Blood 213 mg/dL (75-99)
--- NOTE | 2021-04-01 12:21 | P.PN ---
Progress Note - Text Progress Note Date: 04/01/21 Orthopedics: History of present illness: Patient is a very pleasant 70-year-old male who is seen and examined at the bedside for follow up evaluation of his right upper extremity. Since being seen and examined yesterday he has not had any significant change in his symptoms except for some slight improvement in sensation for his right upper extremity. He continues to have significant global right upper extremity weakness.. He was admitted and is being managed for right upper extremity compartment syndrome. Patient is status post irrigation of the right forearm compartment fasciotomy wounds and replacement of the wound vac by Dr. Paez. This is postoperative day #4 from the most recent irrigation and debridement and wound VAC placement as well as closure of the dorsal wound and placement of a Prevena wound VAC. Patient states he continues to have significant right upper extremity weakness and some reduced sensation with his right upper extremity. Overall, his symptoms have been controlled as compared to yesterday. He has been able to continue to keep his wound vacs intact without difficulty. The wound VAC canister has not needed to be changed since 1800 hrs. yesterday, 03/31/2021. Patient states he had been lying on his right arm for approximately 2-1/2 days after sustaining a fall and being pinned between his bed and nightstand. Sitting states this morning that the son of the patient states the timeline is inaccurate and the patient had only been laying for approximately 8-10 hours on his arm. He states prior to this fall he had no significant difficulties with his right upper extremity. He was not experiencing any significant right upper extremity weakness or radiculopathy. He states his right upper extremity function well. Since lying on his arm he has significant weakness of his right upper extremity. He has remained in bed. He has a Gerardo catheter intact. He has no other complaints at the bedside. He was started on Solu-Medrol 60 mg every 12 hours yesterday. Patient has had until healthy evaluation by neurology who also agreed with this recommendation. Neurology has reviewed his MRI imaging as well and felt his symptoms were not stemming specifically from his cervical spine but more from a brachial plexus standpoint He is currently scheduled to undergo repeat irrigation debridement with wound VAC change this coming 04/02/2021. He may keep his wound vacs intact until that time. He will continue with canister changes as needed. Nursing states patient is being cleared out of COVID-19 protocol. He continues to be multiple medical providers during his admission including neurology, nephrology, medicine, infectious disease, and wound care for multiple medical diagnoses including compartment syndrome of the right upper extremity, compressive neuropathy right upper extremity, status post fall, urinary tract infection, lactic acidosis, acute kidney injury, Parkinson's disease, acute rhabdomyolysis, hyperkalemia, COVID-19 infection, and distal nondisplaced right clavicle fracture. Patient states patient has been acidotic this morning and will be receiving bicarbonate. Physical Exam: Patient is awake, alert, and oriented 3 Vital signs stable Adequate chest excursion with deep inspiration and expiration Some tenderness to palpation over the right shoulder and over the right bicep Reduced sensation with palpation over the right bicep and forearm Patient is unable to feel significant sensation to palpation over the right hand Vascular intact right upper extremity I am able to palpate week radial and ulnar pulse Fingers of the right upper extremity are warm and soft Some swelling over the entire right upper extremity Significant global weakness but his right upper extremity Patient is unable to perform any significant right upper extremity active range of motion Prevena wound VAC in place over the distal forearm Wound VAC and placed over the volar forearm Pertinent studies: MRI of the cervical spine taken on 03/30/2021: C2-3 uncovertebral arthropathy and facet arthropathy resulting in moderate right neural foraminal stenosis; C3- 4 disc osteophyte complex with uncovertebral and facet arthropathy resulting in moderate right neural foraminal stenosis and mild left neural foraminal stenosis; C4-5 disc osteophyte complex with uncovertebral and facet arthropathy resulting in moderate bilateral neural foraminal stenosis and mild central stenosis; C5-6 eccentric right disc osteophyte complex with uncovertebral and facet arthropathy resulting in severe right and moderate left neuroforaminal stenosis with mild central stenosis; C6-7 disc osteophyte complex with uncovertebral and facet arthropathy resulting in moderate right and severe left neural foraminal stenosis with mild central stenosis; C7-T1 degenerative changes with severe right neural foraminal stenosis; no obvious cord signal change MRI of the right brachial plexus taken on 03/30/2021: Extremely limited exam of the brachial plexus; Severe multilevel right neural foraminal narrowing secondary to degenerative changes better visualized on CT imaging of the cervical spine; the right brachial plexus bruits, trunks, and proximal aspects of the cords are without any focal mass effect upon and or abnormal signal intensity compared to the left brachial plexus; visualized left brachial plexus is grossly unremarkable; brachial plexus appears symmetrical; no focal mass or abnormal T2 signal is seen involving the right brachial plexus Assessment: Compartment syndrome right upper extremity Compressive neuropathy right upper extremity Status post fall Acute global right upper extremity weakness Acute right upper extremity sensation C5-6 and C7-T1 severe right neural foraminal stenosis C3-4, C4-5, and C6-7 moderate right neural foraminal stenosis C4-5, C5-6, and C6-7 mild central stenosis Multilevel cervical degenerative disc disease Urinary tract infection Lactic acidosis Acute kidney injury Parkinson's disease Acute rhabdomyolysis Hyperkalemia COVID-19 infection Distal minimally displaced right clavicle fracture Diabetes mellitus Obesity Plan: 1. We will currently planned to continue with the treatment plan as set forth yesterday. Patient will currently plan to continue conservative treatment for his right upper extremity compartment syndrome with compressive neuropathy over the weekend. He is currently scheduled to undergo repeat irrigation debridement with wound VAC change this coming 04/02/2021. We will plan to keep his wound vacs intact until that time. He will continue with canister changes as needed. He will also continue conservative treatment regards to his right minimally displaced clavicle fracture. He should remain non-weightbearing with the right upper extremity. Currently, he is unable to perform any active range of motion with the right upper extremity as he has significant weakness globally with the right upper extremity. We did again discuss his recent MRI imaging of his right brachial plexus and cervical spine. There were not any significant findings in regards to his right brachial plexus, however imaging was extremely limited. He does have significant degenerative changes at his cervical spine with multilevel right-sided foraminal stenosis. Patient states prior to laying on his right side for 2-1/2 days he was not experiencing any significant right upper extremity weakness or radiculopathy. He had good active range of motion of his right upper extremity without difficulty. We did discuss his degenerative changes of his cervical spine but that his symptoms are most likely in relation to the acute compartment syndrome and compressive neuropathy he is experiencing after laying on his right arm for 2-1/2 days. We did discuss we will continue to monitor and manage his right upper extremity. We did discuss based on his progress there is a possibility he may need further intervention and treatment including and even including the possibility of surgical intervention at his cervical spine if his symptoms fail to improve with khanh tment and it seems that his significant global right upper extremity weakness is coming more from his cervical spine rather than his compressive neuropathy and compartment syndrome. It seems currently that his findings on cervical MRI imaging are more chronic in nature as the patient was not experiencing any significant right upper extremity weakness or radiculopathy prior to his fall and that his current symptoms are more in relation as a result of his prolonged lying on his right upper extremity resulting in right upper extremity compartment syndrome and compressive neuropathy. Cervical MRI and brachial plexus MRI imaging was also reviewed by neurology who also felt his global right upper extremity weakness did not correlate well with his findings on his cervical spine MRI. We would not currently plan for acute surgical intervention at his cervical spine as his symptoms currently appear to be stemming more from his recent episode of lying on his right upper extremity for 2-1/2 resulting in compartment syndrome and compressive neuropathy. Patient feels this is a good plan of care. We started the patient on Solu-Medrol 60 mg IV every 12 hours yesterday to see if this can help improve his right upper extremity weakness. We'll continue with this medication if okayed by medicine. This medication may be discontinued by medicine or other medical provider if necessary. Since starting on this medication he feel some increased sensation in his right upper extremity but no significant improvement in his weakness. We are not currently planning for any specific treatment in regards to his distal minimally displaced right clavicle fracture and we'll continue with conservative care. We will not plan for bracing at this time. He is not currently complaining of any significant pain at his right clavicle. 2. Patient will continue with multiple other medical providers including including neurology, nephrology, medicine, infectious disease, and wound care for multiple medical diagnoses including compartment syndrome of the right upper extremity, compressive neuropathy right upper extremity, status post fall, urinary tract infection, lactic acidosis, acute kidney injury, Parkinson's disease, acute rhabdomyolysis, hyperkalemia, COVID-19 infection, diabetes mellitus, obesity, and distal nondisplaced right clavicle fracture
[2021-04-01] MEDS: LACTATED RINGERS 1,000 ML IV SCH (14:15)
[2021-04-01 16:53] LABS: Glucose,Whole Blood 224 mg/dL (75-99)
--- NOTE | 2021-04-01 17:12 | P.PN ---
Subjective Progress Note Date: 03/31/21 Principal diagnosis: Right forearm compartment syndrome , covid 19 infection Patient is a 70-year-old male who was brought into the hospital after the patient was started between bed and nightstand for 2 days noticed to have compartment syndrome right forearm status post fasciotomy 3, patient was transferred to the ICU last night because of worsening hypotension. Patient was taken back to the OR 03/23/2021 and is status post debridement of devitalized tissue and reapplication of the wound VAC, and did have a washout and change of the wound VAC on 03/27/2021 and 03/28/2021 On today's evaluation, and that is 03/31/2021 the patient remains to be afebrile, the patient is hemodynamically stable not any pressor support, the patient is breathing comfortably on 2 L nasal cannula, the patient denies chest pain shortness of breath or cough , the patient denies nausea no vomiting no abdominal pain and no diarrhea, the patient pain to the right forearm wound area currently controlled Objective - Vital Signs Vital signs: Vital Signs Temp 97.7 F 03/31/21 21:03 Pulse 79 03/31/21 21:03 Resp 18 03/31/21 21:03 BP 109/61 03/31/21 21:03 Pulse Ox 93 L 03/31/21 21:03 Intake & Output 03/31/21 03/31/21 04/01/21 06:59 18:59 06:59 Intake Total 210 Output Total 2101 1000 Balance -2101 -790 Intake: Intake, IV Titration 210 Amount Lactated Ringers 1,000 ml 160 @ 20 mls/hr IV .Q24H [facility] Rx#:[id number] ceFAZolin 2 gm In Sodium 50 Chloride 0.9% 50 ml @ 100 mls/hr IVPB Q12HR [facility] Rx #:[id number] Output: Drainage 450 Right Arm 450 Urine 1650 1000 Stool 1 Other: Voiding Method Indwelling Catheter Indwelling Catheter Indwelling Catheter # Bowel Movements 2 ABP, PAP, CO, CI - Last Documented Arterial Blood Pressure 114/75 - Exam GENERAL DESCRIPTION:[ Patient is awake and alert in no distress] HEENT: [Oral mucosa is dry and no pharyngeal erythema] EYES : [No pallor or scleral icterus] RESPIRATORY SYSTEM: [Unlabored breathing decreased breath sounds at the base] CARDIA VASCULAR SYSTEM: [S1-S2 regular rate and rhythm no murmur] GI: [Abdominal soft there's no tenderness no organomegaly] EXTREMITIES: [Right forearm currently covered with a wound VAC there's no significant swelling no redness] - Labs CBC & Chem 7: 03/31/21 06:27 04/01/21 06:06 Labs: Abnormal Lab Results - Last 24 Hours (Table) 03/31/21 03/31/21 03/31/21 Range/Units 06:27 06:27 11:44 RBC 3.23 L (4.30-5.90) m/uL Hgb 10.0 L (13.0-17.5) gm/dL Hct 29.8 L (39.0-53.0) % Chloride 116 H (98-107) mmol/L Carbon Dioxide 16 L (22-30) mmol/L BUN 89 H (9-20) mg/dL Creatinine 3.56 H (0.66-1.25) mg/dL POC Glucose (mg/dL) 156 H (75-99) mg/dL AST 255 H (17-59) U/L Creatine Kinase 1283 H* (55-170) U/L Total Protein 4.4 L (6.3-8.2) g/dL Albumin 2.0 L (3.5-5.0) g/dL 03/31/21 03/31/21 Range/Units 16:41 20:31 RBC (4.30-5.90) m/uL Hgb (13.0-17.5) gm/dL Hct (39.0-53.0) % Chloride (98-107) mmol/L Carbon Dioxide (22-30) mmol/L BUN (9-20) mg/dL Creatinine (0.66-1.25) mg/dL POC Glucose (mg/dL) 135 H 187 H (75-99) mg/dL AST (17-59) U/L Creatine Kinase (55-170) U/L Total Protein (6.3-8.2) g/dL Albumin (3.5-5.0) g/dL Assessment and Plan (1) Compartment syndrome of forearm Current Visit: Yes Status: Acute Priority: High Onset Date: ~03/21/21 Code(s): T79.A19A - TRAUMATIC COMPARTMENT SYNDROME OF UNSP UPPER EXTREMITY, INIT SNOMED Code(s): 724803897 (2) COVID-19 Current Visit: Yes Status: Acute Code(s): U07.1 - COVID-19 SNOMED Code(s): 638981763 Plan: Patient with right forearm compartment syndrome traumatic in this patient with status post fasciotomy and wound VAC application , patient is afebrile and his white count is normalized, blood culture has been negative so far, no local cultures , patient to continue with cefazolin 2-patient did have a positive covid test, no significant respiratory symptoms and the patient is currently on room air, patient to continue with current s upportive treatment 3-positive urine culture with ESBL E. coli repeat urinalysis is still positive h owever the culture subsequently came back negative, Invanz was discontinued Time with Patient: Less than 30
--- NOTE | 2021-04-01 17:13 | P.PN ---
Subjective Progress Note Date: 04/01/21 Principal diagnosis: Right forearm compartment syndrome , covid 19 infection Patient is a 70-year-old male who was brought into the hospital after the patient was started between bed and nightstand for 2 days noticed to have compartment syndrome right forearm status post fasciotomy 3, patient was transferred to the ICU last night because of worsening hypotension. Patient was taken back to the OR 03/23/2021 and is status post debridement of devitalized tissue and reapplication of the wound VAC, and did have a washout and change of the wound VAC on 03/27/2021 and 03/28/2021 On today's evaluation, and that is 04/01/2021 the patient denies any fever or any chills, the patient is breathing comfortably on 2 L nasal cannula, the patient denies chest pain shortness of breath or cough , the patient denies nausea no vomiting no abdominal pain and no diarrhea, the patient pain to the right forearm wound area currently controlled Objective - Vital Signs Vital signs: Vital Signs Temp 97.7 F 04/01/21 14:00 Pulse 74 04/01/21 14:00 Resp 16 04/01/21 14:00 BP 124/65 04/01/21 14:00 Pulse Ox 91 L 04/01/21 14:00 Intake & Output 03/31/21 04/01/21 04/01/21 18:59 06:59 18:59 Intake Total 210 210 Output Total 1000 1000 Balance -790 -1000 210 Intake: Intake, IV Titration 210 210 Amount Lactated Ringers 1,000 ml 160 160 @ 20 mls/hr IV .Q24H [facility] Rx#:[id number] ceFAZolin 2 gm In Sodium 50 50 Chloride 0.9% 50 ml @ 100 mls/hr IVPB Q12HR [facility] Rx #:[id number] Output: Drainage 150 Right Arm 50 Right Lower Arm 100 Urine 1000 850 Other: Voiding Method Indwelling Catheter Indwelling Catheter Indwelling Catheter ABP, PAP, CO, CI - Last Documented Arterial Blood Pressure 114/75 - Exam GENERAL DESCRIPTION:[ Patient is awake and alert in no distress] HEENT: [Oral mucosa is dry and no pharyngeal erythema] EYES : [No pallor or scleral icterus] RESPIRATORY SYSTEM: [Unlabored breathing decreased breath sounds at the base] CARDIA VASCULAR SYSTEM: [S1-S2 regular rate and rhythm no murmur] GI: [Abdominal soft there's no tenderness no organomegaly] EXTREMITIES: [Right forearm currently covered with a wound VAC there's no significant swelling no redness] - Labs CBC & Chem 7: 03/31/21 06:27 04/01/21 06:06 Labs: Abnormal Lab Results - Last 24 Hours (Table) 03/31/21 04/01/21 04/01/21 Range/Units 20:31 06:06 07:29 Chloride 117 H (98-107) mmol/L Carbon Dioxide 14 L (22-30) mmol/L BUN 98 H (9-20) mg/dL Creatinine 3.48 H (0.66-1.25) mg/dL Glucose 180 H (74-99) mg/dL POC Glucose (mg/dL) 187 H 202 H (75-99) mg/dL 04/01/21 04/01/21 Range/Units 11:49 16:52 Chloride (98-107) mmol/L Carbon Dioxide (22-30) mmol/L BUN (9-20) mg/dL Creatinine (0.66-1.25) mg/dL Glucose (74-99) mg/dL POC Glucose (mg/dL) 213 H 224 H (75-99) mg/dL Assessment and Plan (1) Compartment syndrome of forearm Current Visit: Yes Status: Acute Priority: High Onset Date: ~03/21/21 Code(s): T79.A19A - TRAUMATIC COMPARTMENT SYNDROME OF UNSP UPPER EXTREMITY, INIT SNOMED Code(s): 965639767 (2) COVID-19 Current Visit: Yes Status: Acute Code(s): U07.1 - COVID-19 SNOMED Code(s): 760062657 Plan: Patient with right forearm compartment syndrome traumatic in this patient with status post fasciotomy and wound VAC application , patient is afebrile and his white count is normal, blood culture has been negative, no local cultures , patient to continue with cefazolin which will be transitioned to oral Keflex on discharge 2-patient did have a positive covid test, no significant respiratory symptoms and the patient is currently on room air, patient to continue with current supportive treatment Time with Patient: Less than 30
[2021-04-01 20:43] LABS: Glucose,Whole Blood 206 mg/dL (75-99)
[2021-04-01] MEDS: INSULIN DETEMIR (LEVEMIR) 100 UNIT/ML SYR SQ SCH (20:57)
[2021-04-02] MEDS: LEVOTHYROXINE 75 MCG TAB PO SCH ×2 (03:53→05:00)
[2021-04-02 07:14] LABS: Glucose,Whole Blood 177 mg/dL (75-99)
[2021-04-02] MEDS: INSULIN ASPART (NovoLOG) 100 UNIT/ML VIAL SQ SCH ×4 (07:18→21:07)
[2021-04-02] MEDS: HEPARIN SODIUM,PORCINE/PF 5,000 UNIT/0.5 ML SYRINGE SQ SCH ×2 (08:13→21:07)
[2021-04-02] MEDS: CALCIUM CARBONATE 500 MG CHEWABLE PO SCH ×3 (08:14→21:07)
[2021-04-02] MEDS: CYANOCOBALAMIN 500 MCG TAB PO SCH (08:14)
[2021-04-02] MEDS: SODIUM BICARBONATE TAB 650 MG TAB PO SCH ×2 (08:14→21:07)
[2021-04-02] MEDS: PREGABALIN 75 MG CAP PO SCH ×3 (08:14→21:07)
[2021-04-02] MEDS: TAMSULOSIN 0.4 MG CAP.ER.24H PO SCH (08:14)
[2021-04-02] MEDS: MULTIVITAMINS, THERA 1 EACH TAB PO SCH (08:14)
[2021-04-02] MEDS: ZINC SULFATE 220 MG CAP PO SCH (08:14)
[2021-04-02] MEDS: CARBIDOPA-LEVODOPA 25-100 MG 1 EACH TAB PO SCH ×3 (08:15→21:07)
[2021-04-02] MEDS: ASCORBIC ACID 500 MG TAB PO SCH (08:15)
[2021-04-02] MEDS: methylPREDNISolone SOD SUCCI 125 MG/2 ML VIAL IV SCH ×2 (08:15→21:07)
[2021-04-02 09:15] LABS: African American GFR (CKD) 24.5 (60.0-200.0); Anion Gap 12.9 mmol/L (10.00-18.00); BUN/Creat Ratio 31.48 Ratio (12.00-20.00); Blood Urea Nitrogen 91.3 mg/dL (9.0-27.0); Calcium 8.6 mg/dL (8.7-10.3); Carbon Dioxide 22.1 mmol/L (20.0-27.5); Magnesium 2.2 mg/dL (1.5-2.4); Non-African American GFR(CKD) 21.1 (60.0-200.0); Potassium 3.1 mmol/L (3.5-5.5)
[2021-04-02] MEDS ORDERED: POTASSIUM CHLORIDE ER 20 MEQ TAB.ER PO STA (09:56)
--- NOTE | 2021-04-02 09:57 | P.PN ---
Subjective Patient is seen in follow-up for acute kidney injury. Renal function better. Nonoliguric. Blood pressure stable. On 2 L nasal cannula. Denies chest pain or shortness of breath. Oral intake fair. Acidosis improved. Vital signs are stable. General: On nasal cannula. HEENT: Head exam is unremarkable. LUNGS: Breath sounds decreased. HEART: Rate and Rhythm are regular. ABDOMEN: Soft, no distention. EXTREMITITES: Trace edema. Objective - Vital Signs Vital signs: Vital Signs Temp 97.7 F 04/02/21 05:44 Pulse 60 04/02/21 05:44 Resp 17 04/02/21 05:44 BP 110/57 04/02/21 05:44 Pulse Ox 94 L 04/02/21 05:44 Intake & Output 04/01/21 04/02/21 04/02/21 18:59 06:59 18:59 Intake Total 210 Output Total 500 951 Balance -290 -951 Intake: Intake, IV Titration 210 Amount Lactated Ringers 1,000 ml 160 @ 20 mls/hr IV .Q24H [facility] Rx#:[id number] ceFAZolin 2 gm In Sodium 50 Chloride 0.9% 50 ml @ 100 mls/hr IVPB Q12HR [facility] Rx #:[id number] Output: Drainage 500 Right Lower Arm 500 Urine 950 Stool 1 Other: Voiding Method Indwelling Catheter Indwelling Catheter ABP, PAP, CO, CI - Last Documented Arterial Blood Pressure 114/75 - Labs CBC & Chem 7: 03/31/21 06:27 04/02/21 05:36 Labs: Abnormal Lab Results - Last 24 Hours (Table) 04/01/21 04/01/21 04/01/21 Range/Units 11:49 16:52 20:41 Sodium (135-145) mmol/L Potassium (3.5-5.5) mmol/L Chloride (96-109) mmol/L BUN (9.0-27.0) mg/dL Creatinine (0.6-1.5) mg/dL Est GFR (CKD-EPI)AfAm (60.0-200.0) Est GFR (CKD-EPI)NonAf (60.0-200.0) BUN/Creatinine Ratio (12.00-20.00) Ratio Glucose (70-110) mg/dL POC Glucose (mg/dL) 213 H 224 H 206 H (75-99) mg/dL Calcium (8.7-10.3) mg/dL 04/02/21 04/02/21 Range/Units 05:36 07:12 Sodium 147 H (135-145) mmol/L Potassium 3.1 L (3.5-5.5) mmol/L Chloride 112 H (96-109) mmol/L BUN 91.3 H (9.0-27.0) mg/dL Creatinine 2.9 H (0.6-1.5) mg/dL Est GFR (CKD-EPI)AfAm 24.5 L (60.0-200.0) Est GFR (CKD-EPI)NonAf 21.1 L (60.0-200.0) BUN/Creatinine Ratio 31.48 H (12.00-20.00) Ratio Glucose 153 H (70-110) mg/dL POC Glucose (mg/dL) 177 H (75-99) mg/dL Calcium 8.6 L (8.7-10.3) mg/dL Assessment and Plan Plan: Assessment: 1. Acute kidney injury secondary to ATN secondary to rhabdomyolysis. Renal function gradually improving. Creatinine 2.9 today. 2. Rhabdomyolysis secondary to fall and crush injury. CK levels trending down. 3. Right forearm compartment syndrome status post fasciotomy and wound VAC placement. 4. Hypokalemia from poor intake. 5. Metabolic acidosis secondary to acute kidney injury and IV fluids. On oral bicarbonate. Improved. 6. Diabetes mellitus. 7. COVID-19 infection. 8. Hypernatremia from the oral water intake. Plan: Add D5W at 60 mL an hour. Encouraged oral intake. Avoid nephrotoxins. Replace potassium. Continue to monitor renal function and urine output.
[2021-04-02] MEDS: DEXTROSE 5% IN WATER 1,000 ML IV SCH (10:17)
[2021-04-02] MEDS ORDERED: POTASSIUM CHLORIDE 10 MEQ in WATER FOR INJECTION 1 100ML.BAG IVPB SCH (11:00)
[2021-04-02 12:07] LABS: Glucose,Whole Blood 174 mg/dL (75-99)
[2021-04-02] MEDS ORDERED: ONDANSETRON 4 MG/2 ML VIAL ONE (12:20)
[2021-04-02] MEDS ORDERED: GLYCOPYRROLATE 0.2 MG/ML 2 ML VIAL ONE (12:20)
[2021-04-02] MEDS ORDERED: LIDOCAINE 1% INJ 10MG/ML (20 ML MDV) ONE (12:20)
[2021-04-02] MEDS ORDERED: ePHEDrine 50 MG/ML 1 ML AMP ONE (12:20)
[2021-04-02] MEDS ORDERED: PHENYLEPHRINE-0.9% NACL SYG 1,000 MCG/10 ML SYRINGE ONE (12:20)
[2021-04-02] MEDS ORDERED: fentaNYL (PF) 50 MCG/ML 2 ML AMP ONE (12:20)
[2021-04-02] MEDS ORDERED: NEOSTIGMINE 1 MG/ML 10 ML VIAL ONE (12:20)
[2021-04-02] MEDS ORDERED: ROCURONIUM 10 MG/ML (5 ML VIAL) IV ONE (12:20)
[2021-04-02] MEDS ORDERED: PROPOFOL 10 MG/ML 20 ML VIAL IV ONE (12:20)
[2021-04-02] MEDS ORDERED: LACTATED RINGERS 1,000 ML IV ONE (12:28)
[2021-04-02] MEDS ORDERED: ceFAZolin 2,000 MG in SODIUM CHLORIDE 0.9% 2,000 ML IRRIGATION ONE (12:58)
--- NOTE | 2021-04-02 13:39 | P.OP ---
Date of Procedure: 04/02/21 Procedure(s) Performed: PREOPERATIVE DIAGNOSES: 1. Right forearm compartment syndrome status post compartment fasciotomies and closure of dorsal fasciotomy wound POSTOPERATIVE DIAGNOSES: 1. Right forearm compartment syndrome status post compartment fasciotomies and closure of dorsal fasciotomy wound PROCEDURES PERFORMED: 1. Right forearm volar compartment irrigation 2. Application of Prevena wound VAC (negative pressure wound dressing) to dorsal forearm fasciotomy wound 3. Application of regular wound VAC (negative pressure wound dressing) to volar forearm fasciotomy wound 4. Partial closure and elastic retention banding volar wound ANESTHESIA: Gen. BENZENE [employer]ILL UTILITY OPERATOR: Sarahi Pena PA-C(assistance with: Patient positioning, retraction, exposure, application of wound VAC, closure, dressing) COMPLICATIONS: None ESTIMATED BLOOD LOSS: 10 mL. DISPOSITION: To post-anesthesia care unit INDICATIONS: Nilay is a 70-year-old male who previously had forearm compartment fasciotomies performed approximately 12 days ago. We have successfully closed dorsal fasciotomy wound, however his volar wound still remains open and is draining copious amounts through the wound VAC. He returns to the operating today for irrigation of his volar wound, consideration of possible partial closure of and reapplication of wound VAC. I described the steps of the operation and potential risks and complications as being inclusive of, but not limited to: Bleeding, infection, scarring, discomfort, blood vessel and/or nerve damage, need for skin grafting, persistent pain, ischemic contracture, stiffness of elbow wrist and/or fingers, weakness, permanent nerve damage, , loss of limb, and other risks. The patient is aware of these risks and wishes to proceed with surgery. The consent form has been signed. PROCEDURE: After appropriate consent was obtained, the patient was taken to the operating room placed in the supine position. General anesthesia was initiated, and after confirmation of adequate anesthesia, the patient was carefully positioned. Care was taken to make sure that all pressure points were adequately padded. Prepping and draping were completed in the usual aseptic fashion using Hibiclens prep. Timeout was called, confirming patient identity, side, procedure, and antibiotics have been administered on the floor. No tourniquet was used. The dorsal wound was first inspected. All sutures remained intact, and the compartments were soft. Very small amount of serosanguineous drainage was seen from the wound, but no expressible drainage was noted. Next, the volar wound was inspected. A preliminary 1 L irrigation using pulsatile saline was performed on the surface of the wound. Next, the contractibility of the exposed muscles was evaluated with Bovie cautery. All muscles except the FCR had good contractility. The flexor carpi radialis muscle was minimally contractile with Bovie. An incision using a knife into the superficial muscle belly of the flexor carpi radialis showed well-perfused muscle. The muscle itself was healthy in appearance considering its color and consistency. Therefore, the muscle was left in place to provide additional blood supply to the wound. The radial artery was noted to be pulsing visibly and there was excellent palpable radial, ulnar, and brachial pulses. After inspection of these multiple and vascular supply, another 1 L of normal saline was pulse lavage. The volar compartments appeared to be significantly diminished in size since last trip to [place]. This appeared to be due to resolution of swelling. Therefore, partial closure was attempted. The proximal portion of the wound was able to be closed for approximately 2 inches. The distal portion of the wound was closed by approximately half inch. The remainder of the wound was placed under slight elastic tension using a red vessel loop and nicole. The size of the wound was significantly diminished during this step, indicating shrinkage of the compartments and continued elasticity of the wound edges. A large wound VAC was applied to the volar wound. A Prevena wound VAC was placed on the dorsal wound. Adequate seal was confirmed for both wounds. Radial pulse 2+, ulnar pulse 2+ and brachial pulse 2+ at the conclusion of the case. Fingers were pink with capillary refill approximately 2 seconds. Patient tolerated the procedure well and taken to recovery room in stable condition. Sponge and needle counts are correct.
[2021-04-02] MEDS: LACTATED RINGERS 1,000 ML IV SCH (14:41)
--- NOTE | 2021-04-02 14:50 | P.PN ---
Subjective Progress Note Date: 04/02/21 HISTORY OF PRESENT ILLNESS 70 years old male patient of Dr. Pennington with past medical history of Parkinson's, diabetes with diabetic neuropathy, hypothyroidism, calendar in 20 10, chronic back pain with lumbar surgery 25 years ago comes in after he was found pinned in between his bed and the nightstand. Patient stated that he was rolling in his bed when he got stuck. According to the daughter bedside it appears patient has been stuck there for 2 days since he has not taken his medication. Patient was unable to reach anybody. Since nobody heard anything from the patient family called neighbors and friends to check on him. Patient was alert and was found suspended and there in between his bed and nightstand and unable to move himself from this position. Patient was released from his position and brought to the hospital. He is unable to move his right upper e xtremity with significant bruising and ecchymosis involving the forearm and the hand. Patient has no mobility involving his right arm , with contracture involving his hand.. Patient denies dizziness, confusion or recent falls. He states he was doing well and had no fever, chills, polyuria increased frequency or concern for sepsis. He did see a urologist at [facility] for his recurrent UTIs in January and was found to have a urine infection. Patient was admitted in in October for recurrent falls and UTI sepsis with E. coli resistant to fluoroquinolones. Patient is fairly active at baseline and goes to gym 4 times a week. Patient had a detailed workup including MRI, EEG and echocardiogram on his admission in October, echocardiogram suggest moderate concentric left ventricle hypertrophy with EF 55-60% on the valves with mild mitral and tricuspid regurgitation. Right ventricle pressures were less than 35mm. Vitals reviewed patient is afebrile pulse 63 respiratory rate 16 blood pressure 147/99 oxybutynin 95% on room air. Labs reviewed WBC 13.9 hemoglobin 17.4 sodium 136 potassium 6.1 bicarbonate 19 creatinine 1.35 and blood sugar 242 lactic acid 7.1 AST 660 ALT 259 with CK levels [id number] troponin [address] head and cervical spine showed right ICA hyperdense and recommended CT angiography to: For list exclude internal thrombosis no acute intracranial hemorrhage or mass effect degenerative and nonspecific white matter changes most typical remote ischemia slightly gait greater central competent of ventricle dilation can be associated with normal pressure hydrocephalus severe multilevel degenerative disc disease no fracture X-rays humerus was negative for fracture or dislocation. X-ray forearm suggestive no acute fracture diffuse soft tissue edema suggestive of posttraumatic or postinfectious edema shoulder x-ray on the right shows hairline fracture nondisplaced distal right clavicle with soft tissue edema. Chest x-ray with right lower lobe A to lactose is only infiltrated nodular density right lung may be related to superimposed structure short-term follow-up with repeat chest x-ray recommended. EKG suggested normal sinus rhythm with T-wave abnormality noted x-ray hand no fracture or dislocation but patient's patient's were flexed extensive soft tissue swelling noted 03/22: She and has been hypotensive and ordered for 2 more liters of IV fluid bolus. Blood culture and urine culture in progress. Patient has been afebrile, temperature actually on the lower side 96.7-97.5. Heart rate 78, blood pressure 110/71 after fluids, pulse ox 93% on 4 L nasal cannula. Repeat blood work reveals WBC 12.0. Sodium 133, potassium 6.5, chloride 112, CO2 10, BUN 31 and creatinine 2.65. Blood sugars running between 207 and 221. Repeat lactic acid 2.7. CK 60,158. AST 1424, ALT 87. Kayexalate 30 g, calcium gluconate 1 g with 10 units of regular insulin and D50 50 ML's all ordered. Consult added for nephrology. Orthopedics is planning on returning to or tomorrow to remove wound VAC and assess wounds and possible new wound VAC placement, possible closure partial closure of the wounds. Patient also followed by neurology and infectious disease. Patient is currently on 2 g every 12 hours 03/23: Due to worsening renal function and worsening rhabdomyolysis as well as hypotension yesterday, patient was moved into the intensive care unit. His urine output has been 20-30 ML's. He has been continued on IV fluids currently at 150 mL per hour. We will add in fluid bolus of 2 L. Patient has been seen by nephrology and was started on bicarb drip yesterday now discontinued. Continue to assess daily for need for renal replacement therapy. Vascular surgery is following for possible dialysis catheter. No further vascular intervention for the upper extremity at this time. Neurology has no further plans will recommend follow-up with his neurologist and will sign off the case for now. Renal ultrasound revealed suboptimal study without hydronephrosis bilaterally. 03/24 patient examined at bedside. He has no improvement in sensation involving her right upper extremity. He did have an episode last night when he woke up in Panic as patient thought he lost hus arm. He is otherwise alert and answer questions appropriately. Vitals stable hemoglobin stable, calcium is 6.2 creatinine kinase is 39,000 181. IV fluids are running at 1 50 mL per hour urine output approximately 30 ML per hour. 1 L bolus given to the patient 1 calcium 1 g calcium gluconate ordered. Tums Ultra 45 and repeat treatment 3 times a day. Discussed with patient the possible need to be on PTSD reluctant to start at this point medication. 03/25 patient examined at bedside. He is complaining of significant pain in his right arm is otherwise stable patient's to 94% on 2 L. Hemoglobin stable at 10, BUN and creatinine continued to trend up. Urine continues to remain infected. Urine output is 1.4 L in the past 24 hours patient may need dialysis if no improvement in unit urine output is seen. Dilaudid 0.5 mg stat given 03/26: Patient remains in the intensive care unit. Urine culture finalized with 2 E. coli 1 ESBL, currently on meropenem and followed by Dr. Muro. Nephrology has decreased IV fluids to 70 ML's per hour once patient is eating. He is scheduled for another I&D today with orthopedics. He continues to have no movement to the right upper extremity and has slight sensation. Patient has been afebrile, heart rate in the 70s, blood pressure 121/65, pulse ox 94% on room air. Sodium 134, potassium 4, chloride 108, CO2 20, BUN 57 creatinine 4.64. Blood sugars running between 106 and 160. AST 873. 03/27: Patient remains in the intensive care unit but has been downgraded to [facility] without telemetry. Patient underwent I&D irrigation only yesterday with Dr. Paez. Wound VAC is in place and there is a collection of blood within the dressing. Repeat I&D scheduled for tomorrow. Patient is continued on meropenem. Patient is afebrile, heart rate 85, blood pressure 120/92, pulse ox 95% on room air. BUN 60, creatinine 4.47. Capillary blood glucose running between 121 at 201. Urine output is 60-75 mL per hour. Nephrology is not planning on renal replacement. Repeat chest x-ray reveals patchy basilar atelectasis and/or infiltrates persist unchanged. 03/28: Patient is seen today on the [facility] floor. Patient is scheduled for I&D and wound VAC change today in the OR with Dr. Paez today. Patient has very minimal movement to the fingers on the right. PT and OT working with the patient as well. Patient has significant edema to the right shoulder and upper arm, right clavicle area. CBG 123-153. BUN 68 creatinine 4.22. CK from yesterday was 19,643. AST 570, ALT 90. Discharge plan is for [facility]. Patient also had a midline placed yesterday. 03/29: Wound VAC remains in place to the right arm, has slightly less edema and slight movement of his right hand. Patient also noted to have a large right flank hematoma and ecchymosis. Gerardo catheter remains in place. Repeat creatinine is 4.17 and BUN 75, CO2 15. Blood sugar 119. CBGs are running between 120 269. Repeat CK is down to 5896. Patient is currently on LR at 50 ML's per hour, and started on sodium bicarb, continued on meropenem. Patient has been seen by the wound care team with plan to follow-up in the wound healing Center at discharge. Orthopedics is planning for repeat irrigation and a bright red wound VAC change on Friday. For splint has been ordered for his right wrist and fingers to maintain extension.. 03/30: Patient denies any new concerns. Patient is followed closely by orthopedics with plan for irrigation on Friday and change out wound VAC. There is concern that there are no wound VAC canister available in the hospital due to shortage and thus patient may need to be switched to a wet-to-dry dressing. Patient is also followed by infectious disease and continued on Kefzol. CK continues to improve today at 2184. BUN 81 and creatinine 3.87. Nephrology is following closely with no plan for dialysis. Neurology has recommended EMG with NCS of the right upper extremity as an outpatient one possible with recommendations to follow up with his neurologist Dr. Erica Tamayo and recommend further investigation for normal pressure hydrocephalus as an outpatient. 04/02: Over the weekend, patient was started on IV Solu-Medrol to help with sensation in his right upper extremity. We will add and scheduled NovoLog 3 units with meals and also increase Levemir to 10 units at bedtime. He is scheduled for repeat irrigation today. Yesterday, patient received 3 A of bicarb for metabolic acidosis. Patient is afebrile, heart rate 69, blood pressure 110/57, pulse ox 94% on 2 L nasal cannula. Repeat blood work today reveals sodium 147, potassium 3.1, chloride 112, CO2 22. BUN 91 creatinine 2.9. Blood sugars are running between 174 and 224. Magnesium 2.2. Anticipate possible discharge to rehab tomorrow. REVIEW OF SYSTEMS Constitutional: Denies chills, Denies fever, Denies lethargy, Denies malaise, Denies poor appetite, Denies weakness, Denies weight loss Eyes: denies decreased vision, denies diplopia, denies discharge, denies pain Ears: deny: decreased hearing Ears, nose, mouth and throat: Denies dental pain, Denies headache, Denies nasal discharge, Denies nose pain Cardiovascular: Denies chest pain, Denies decreased exercise tolerance, Denies edema, Denies high blood pressure, Denies irregular heart beat, Denies palpitations, Denies paroxysmal nocturnal dyspnea, Denies rapid heart beat, Denies shortness of breath Respiratory: Denies congestion, Denies cough, Denies cough with sputum, Denies dyspnea, Denies home oxygen, Denies wheezing Gastrointestinal: Denies abdominal pain, Denies change in bowel habits, Denies coffee ground emesis, Denies heartburn, Denies hematemesis, Denies hematochezia, Denies loss of appetite, Denies nausea, Denies vomiting Genitourinary: Denies dysuria, Denies flank pain, Denies kidney stones, Denies menorrhagia, Denies urgency, Denies urinary frequency Musculoskeletal: Denies gait dysfunction, Denies limitation of motion, Denies morning stiffness, Denies muscle cramps endorses contracture, swelling, loss of sensation involving right upper extremity Integumentary: Denies rash, Denies wounds, Denies brittle nails Neurological: Denies balance difficulties, no change in speech, Denies double vision, Denies gait dysfunction, Denies loss of vision, Denies numbness, Denies paralysis, loss of sensation to the right arm, paralysis of the right upper extremity, Denies seizures Psychiatric: Denies anxiety, Denies depression mild PTSD Endocrine: Denies excessive sweating, Denies excessive thirst, Denies high blood sugars, Denies palpitations Hematologic/Lymphatic: Denies easy bruising, Denies lymphadenopathy PHYSICAL EXAMINATION Gen: This is a 70-year-old male. He is laying in bed and appears to be comfortable and in no acute distress. HEENT: Head is atraumatic, normocephalic. Pupils equal, round. Sclerae is anicteric. NECK: Supple. No JVD. No lymphadenopathy. No thyromegaly. LUNGS: Clear to auscultation. No wheezes or rhonchi. No intercostal retractions. HEART: Regular rate and rhythm. No murmur. ABDOMEN: Soft. Bowel sounds are present. No masses. No tenderness. Gerardo catheter draining clear becki urine. EXTREMITIES: No pedal edema. No calf tenderness. Swelling to the right upper shoulder upper arm and clavicle on the right. Large dressing/wound VAC in place to the right forearm. Patient has very small amount of movement of the fingers. NEUROLOGICAL: Patient is awake, alert and oriented x3. Cranial nerves 2 through 12 are grossly intact. ASSESSMENT AND PLAN 1. Right forearm compartment syndrome -Status post dorsal and volar fasciotomies with Dr. Paez, 03/21. Status post debridement and irrigation on 03/23, Repeat irrigation 03/26, repeat irrigation, closure dorsal fasciotomy wound on 03/28. Patient is scheduled for irrigation today. PT and OT following. Splint has been ordered for the right wrist. Vascular surgery Dr. Gerardo is not planning any further intervention. Plan for outpatient EMG 2. Acute rhabdomyolysis secondary to injury with metabolic acidoses, improving. Consult with nephrology appreciated. Continue IV fluids, s/p bicarb. 3. Hypo-calcemia. Status post calcium gluconate, calcium carbonate 500 3 times a day 4. Distal nondisplaced right clavicle fracture 5. Acute COVID19 infection. Continue isolation 6. Acute metabolic encephalopathy secondary to sepsis and acute kidney injury, rhabdomyolysis, Dilaudid, resolved. Consult with neurology appreciated and signed off. Vitamin B12 1000 g daily added by neurology. 7. Hyperkalemia secondary to Rhabdomyolysis, resolved. 8. Acute lactic acidosis secondary to hypovolemia, status post IV fluid bolus.Continue IV fluids . 9. Acute kidney injury secondary to rhabdomyolysis secondary to ATN. Continue IV fluids, Baseline creatinine 0.8, Avoid nephrotoxic agents, Hold metformin, Consult nephrology appreciated, No plan for dialysis, Sodium bicarb 325 mg twice daily. 10. Acute transaminitis. Monitor Type II uncontrolled diabetes - Last A1c 7.2 - Hold metformin - Continue insulin sliding Scale and Lantus at 5 units at at bedtime History of UTI, acute ESBL E. coli UTI - Merrem. History of Sepsis secondary to acute urinary tract infection In October 2020 - Unclear if patient fall was a result of confusion. Infectious metabolic encephalopathy - resolved - CT head and neck suggestive of hyperdense involving right carotid. We will evaluate with CT angiogram head and neck.. Also mentioned normal pressure hydrocephalus on the CAT scan though MRI was negative for hydrocephalus in October Frequent falls possibly related to worsening Parkinson's, exacerbated by sepsis. - Does PT as outpatient. We'll evaluate for rehab once patient is stableDiabetic polyneuropathy. - Lyrica 150 mg twice daily Parkinson's. -Continue Sinemet 251 101-1/2 3 times daily. Hypothyroidism. -Continue levothyroxine 150 mcg daily. Guillain-[place] syndrome in 2007. Benign prostatic hypertrophy. -Continue Flomax or 0.4 mg daily. GI prophylaxis. Protonix. DVT prophylaxis. Heparin subcu. DISCHARGE PLAN Subacute rehab at [facility] on Friday. Impression and plan of care have been directed as dictated by the signing physician. Sophie Hitchcock nurse practitioner acting as scribe for signing physician. Objective - Vital Signs Vital signs: Vital Signs Temp 97.7 F 04/02/21 10:05 Pulse 69 04/02/21 10:05 Resp 17 04/02/21 10:05 BP 110/57 04/02/21 10:05 Pulse Ox 94 L 04/02/21 10:05 Intake & Output 04/01/21 04/02/21 04/02/21 18:59 06:59 18:59 Intake Total 210 Output Total 500 951 Balance -290 -951 Intake: Intake, IV Titration 210 Amount Lactated Ringers 1,000 ml 160 @ 20 mls/hr IV .Q24H [facility] Rx#:[id number] ceFAZolin 2 gm In Sodium 50 Chloride 0.9% 50 ml @ 100 mls/hr IVPB Q12HR [facility] Rx #:[id number] Output: Drainage 500 Right Lower Arm 500 Urine 950 Stool 1 Other: Voiding Method Indwelling Catheter Indwelling Catheter Indwelling Catheter ABP, PAP, CO, CI - Last Documented Arterial Blood Pressure 114/75 - Labs CBC & Chem 7: 03/31/21 06:27 04/02/21 05:36 Labs: Abnormal Lab Results - Last 24 Hours (Table) 04/01/21 04/01/21 04/01/21 Range/Units 11:49 16:52 20:41 Sodium (135-145) mmol/L Potassium (3.5-5.5) mmol/L Chloride (96-109) mmol/L BUN (9.0-27.0) mg/dL Creatinine (0.6-1.5) mg/dL Est GFR (CKD-EPI)AfAm (60.0-200.0) Est GFR (CKD-EPI)NonAf (60.0-200.0) BUN/Creatinine Ratio (12.00-20.00) Ratio Glucose (70-110) mg/dL POC Glucose (mg/dL) 213 H 224 H 206 H (75-99) mg/dL Calcium (8.7-10.3) mg/dL 04/02/21 04/02/21 Range/Units 05:36 07:12 Sodium 147 H (135-145) mmol/L Potassium 3.1 L (3.5-5.5) mmol/L Chloride 112 H (96-109) mmol/L BUN 91.3 H (9.0-27.0) mg/dL Creatinine 2.9 H (0.6-1.5) mg/dL Est GFR (CKD-EPI)AfAm 24.5 L (60.0-200.0) Est GFR (CKD-EPI)NonAf 21.1 L (60.0-200.0) BUN/Creatinine Ratio 31.48 H (12.00-20.00) Ratio Glucose 153 H (70-110) mg/dL POC Glucose (mg/dL) 177 H (75-99) mg/dL Calcium 8.6 L (8.7-10.3) mg/dL
[2021-04-02 17:01] LABS: Glucose,Whole Blood 222 mg/dL (75-99)
[2021-04-02 21:00] LABS: Glucose,Whole Blood 229 mg/dL (75-99)
[2021-04-02] MEDS: INSULIN DETEMIR (LEVEMIR) 100 UNIT/ML SYR SQ SCH (21:08)
--- NOTE | 2021-04-02 21:50 | P.PN ---
Subjective Progress Note Date: 04/02/21 Principal diagnosis: Right forearm compartment syndrome , covid 19 infection Patient is a 70-year-old male who was brought into the hospital after the patient was started between bed and nightstand for 2 days noticed to have compartment syndrome right forearm status post fasciotomy 3, patient was transferred to the ICU last night because of worsening hypotension. Patient was taken back to the OR 03/23/2021 and is status post debridement of devitalized tissue and reapplication of the wound VAC, and did have a washout and change of the wound VAC on 03/27/2021, 03/28/2021 and 04/02/2021 On today's evaluation, and that is 04/02/2021 the patient remains to be afeb rile, the patient is breathing comfortably on 2 L nasal cannula, the patient denies chest pain shortness of breath or cough , the patient denies nausea no vomiting no abdominal pain and no diarrhea, the patient right forearm pain is currently controlled Objective - Vital Signs Vital signs: Vital Signs Temp 97.5 F L 04/02/21 18:00 Pulse 62 04/02/21 18:00 Resp 16 04/02/21 18:00 BP 105/55 04/02/21 18:00 Pulse Ox 95 04/02/21 18:00 Intake & Output 04/02/21 04/02/21 04/03/21 06:59 18:59 06:59 Intake Total 781 Output Total 951 650 Balance -951 131 Intake: IV 301 Intake, IV Titration 480 Amount Dextrose 5% in Water 1, 480 000 ml @ 60 mls/hr IV . [id number] [facility] Rx#:[id number] Output: Urine 950 650 Stool 1 Estimated Blood Loss 0 Other: Voiding Method Indwelling Catheter Indwelling Catheter ABP, PAP, CO, CI - Last Documented Arterial Blood Pressure 114/75 - Exam GENERAL DESCRIPTION:[ Patient is awake and alert in no distress] HEENT: [Oral mucosa is dry and no pharyngeal erythema] EYES : [No pallor or scleral icterus] RESPIRATORY SYSTEM: [Unlabored breathing decreased breath sounds at the base] CARDIA VASCULAR SYSTEM: [S1-S2 regular rate and rhythm no murmur] GI: [Abdominal soft there's no tenderness no organomegaly] EXTREMITIES: [Right forearm currently covered with a wound VAC there's no significant swelling no redness] - Labs CBC & Chem 7: 03/31/21 06:27 04/02/21 05:36 Labs: Abnormal Lab Results - Last 24 Hours (Table) 04/02/21 04/02/21 04/02/21 Range/Units 05:36 07:12 12:05 Sodium 147 H (135-145) mmol/L Potassium 3.1 L (3.5-5.5) mmol/L Chloride 112 H (96-109) mmol/L BUN 91.3 H (9.0-27.0) mg/dL Creatinine 2.9 H (0.6-1.5) mg/dL Est GFR (CKD-EPI)AfAm 24.5 L (60.0-200.0) Est GFR (CKD-EPI)NonAf 21.1 L (60.0-200.0) BUN/Creatinine Ratio 31.48 H (12.00-20.00) Ratio Glucose 153 H (70-110) mg/dL POC Glucose (mg/dL) 177 H 174 H (75-99) mg/dL Calcium 8.6 L (8.7-10.3) mg/dL 04/02/21 04/02/21 Range/Units 17:00 20:58 Sodium (135-145) mmol/L Potassium (3.5-5.5) mmol/L Chloride (96-109) mmol/L BUN (9.0-27.0) mg/dL Creatinine (0.6-1.5) mg/dL Est GFR (CKD-EPI)AfAm (60.0-200.0) Est GFR (CKD-EPI)NonAf (60.0-200.0) BUN/Creatinine Ratio (12.00-20.00) Ratio Glucose (70-110) mg/dL POC Glucose (mg/dL) 222 H 229 H (75-99) mg/dL Calcium (8.7-10.3) mg/dL Assessment and Plan (1) Compartment syndrome of forearm Current Visit: Yes Status: Acute Priority: High Onset Date: ~03/21/21 Code(s): T79.A19A - TRAUMATIC COMPARTMENT SYNDROME OF UNSP UPPER EXTREMITY, INIT SNOMED Code(s): 462835884 (2) COVID-19 Current Visit: Yes Status: Acute Code(s): U07.1 - COVID-19 SNOMED Code(s): 795892662 Plan: Patient with right forearm compartment syndrome traumatic in this patient with status post fasciotomy and wound VAC application , patient is afebrile and his white count is normal, blood culture has been negative, no local cultures , patient is currently covered with cefazolin which will be transitioned to oral Keflex on discharge, discussed with the admitting team 2-patient did have a positive covid test, no significant respiratory symptoms and the patient is currently on room air, patient to continue with current supportive treatment Time with Patient: Less than 30
[2021-04-03] MEDS: DEXTROSE 5% IN WATER 1,000 ML IV SCH ×2 (03:36→21:44)
[2021-04-03] MEDS: LEVOTHYROXINE 75 MCG TAB PO SCH (05:30)
[2021-04-03 07:01] LABS: Glucose,Whole Blood 165 mg/dL (75-99)
[2021-04-03] MEDS: HEPARIN SODIUM,PORCINE/PF 5,000 UNIT/0.5 ML SYRINGE SQ SCH ×2 (07:28→21:37)
[2021-04-03] MEDS: CYANOCOBALAMIN 500 MCG TAB PO SCH (07:28)
[2021-04-03] MEDS: INSULIN ASPART (NovoLOG) 100 UNIT/ML VIAL SQ SCH ×4 (07:28→21:28)
[2021-04-03] MEDS: SODIUM BICARBONATE TAB 650 MG TAB PO SCH ×2 (07:29→21:29)
[2021-04-03] MEDS: CALCIUM CARBONATE 500 MG CHEWABLE PO SCH ×3 (07:29→21:29)
[2021-04-03] MEDS: methylPREDNISolone SOD SUCCI 125 MG/2 ML VIAL IV SCH ×2 (07:29→21:28)
[2021-04-03] MEDS: PREGABALIN 75 MG CAP PO SCH ×3 (07:29→21:29)
[2021-04-03] MEDS: ACETAMINOPHEN TAB 325 MG TAB PO PRN (07:30)
[2021-04-03] MEDS: ASCORBIC ACID 500 MG TAB PO SCH (07:30)
[2021-04-03] MEDS: MULTIVITAMINS, THERA 1 EACH TAB PO SCH (07:30)
[2021-04-03] MEDS: CARBIDOPA-LEVODOPA 25-100 MG 1 EACH TAB PO SCH ×3 (07:30→21:29)
[2021-04-03] MEDS: ZINC SULFATE 220 MG CAP PO SCH (07:30)
[2021-04-03] MEDS: TAMSULOSIN 0.4 MG CAP.ER.24H PO SCH (07:30)
--- NOTE | 2021-04-03 09:00 | P.CNOR ---
<Calin Wiseman - Last Filed: 04/03/21 08:53> History of Present Illness - [facility] Consult date: 04/03/21 Requesting physician: Sarahi Pena Consult reason: other (Global right upper extremity weakness) History of present illness: Patient is a very pleasant 70-year-old male who is seen and examined at the bedside for relation from a cervical spine standpoint for further evaluation of his right upper extremity. Consultation has been placed by Sarahi Pena. Patient was originally brought to [facility] after the patient reports he had been on his right arm for approximately 2-1/2 days after efrain taining a fall and being pinned between his bed and nightstand. Nursing states this morning that the son of the patient states the timeline is inaccurate and the patient had only been laying for approximately 8-10 hours on his arm. He was admitted and is being managed for right upper extremity compartment syndrome. Since the fall he has been experiencing significant right upper extremity global weakness. He states prior to this fall he had no significant difficulties with his right upper extremity. He was not experiencing any significant right upper extremity weakness or radiculopathy. He states his right upper extremity was functioning well. He has remained in bed. He has a Gerardo catheter intact. He has no other complaints at the bedside. I had been following the patient over the weekend as well. Since being seen and examined over the weekend his symptoms have essentially been unchanged. Yesterday he underwent right forearm volar compartment irrigation with partial closure and placement of wound VAC to the volar forearm fasciotomy wound and a Prevena wound VAC over the dorsal forearm fasciotomy wound. He has undergone multiple surgical interventions that his right forearm since his admittance to the hospital. He has not had any improvement of his symptoms since his admittance. Patient has been admitted since 03/21/2021. He continues to have significant global right upper extremity weakness. He was admitted and is being managed for right upper extremity compartment syndrome. He has had MRI imaging of the cervical spine and right brachial plexus. Patient has been evaluated multiple times by neurology as well. Neurology has reviewed his MRI imaging as well and felt his symptoms were not stemming specifically from his cervical spine but more from a brachial plexus standpoint During his admission he continues to be seen by multiple medical providers du ring his admission including neurology, nephrology, medicine, infectious disease, and wound care for multiple medical diagnoses including compartment syndrome of the right upper extremity, compressive neuropathy right upper extremity, status post fall, urinary tract infection, lactic acidosis, acute kidney injury, Parkinson's disease, acute rhabdomyolysis, hyperkalemia, COVID-19 infection, and distal nondisplaced right clavicle fracture. Past Medical History Past Medical History: Diabetes Mellitus Additional Past Medical History / Comment(s): guillian-barre syndrome, parkinsons, rt. shoulder rotator cuff repair, lasic eye surgery, L4-L5 laporoscopy History of Any Multi-Drug Resistant Organisms: ESBL Year Discovered:: 03/22/21 ESBL E.coli MDRO Source:: ESBL-Urine Past Surgical History: Back Surgery Past Psychological History: No Psychological Hx Reported Smoking Status: Never smoker Past Alcohol Use History: None Reported Past Drug Use History: None Reported Medications and Allergies Home Medications Medication Instructions Recorded Confirmed Type Aspirin EC [Ecotrin Low Dose] 81 mg PO DAILY 10/01/20 03/21/21 History Carbidopa-Levodopa 25-100 mg 1.5 tab PO TID 10/01/20 03/21/21 History [Sinemet 25-100 mg] Levothyroxine Sodium [Synthroid] 150 mcg PO DAILY 10/01/20 03/21/21 History Multivitamins, Thera [Multivitamin 1 tab PO DAILY 10/01/20 03/21/21 History (formulary)] Pregabalin [Lyrica] 150 mg PO TID 10/01/20 03/21/21 History Tamsulosin HCl [Flomax] 0.4 mg PO DAILY 10/01/20 03/21/21 History metFORMIN HCL [Glucophage] 1,000 mg PO BID 10/01/20 03/21/21 History Allergies Allergy/AdvReac Type Severity Reaction Status Date / Time Sulfa (Sulfonamide Allergy Unknown Verified 03/21/21 15:47 Antibiotics) Physical Examination Physical Exam: Patient is awake, alert, and oriented 3 Vital signs stable Adequate chest excursion with deep inspiration and expiration Some tenderness to palpation over the right shoulder and over the right bicep Reduced sensation with palpation over the right bicep and forearm Patient is unable to feel significant sensation to palpation over the right hand Vascular intact right upper extremity I am able to palpate week radial and ulnar pulse Fingers of the right upper extremity are warm and soft Some swelling over the entire right upper extremity Significant global weakness but his right upper extremity Patient is unable to perform any significant right upper extremity active range of motion Prevena wound VAC in place over the distal forearm Wound VAC and placed over the volar forearm Results Pertinent studies: MRI of the cervical spine taken on 03/30/2021: C2-3 uncovertebral arthropathy and facet arthropathy resulting in moderate right neural foraminal stenosis; C3- 4 disc osteophyte complex with uncovertebral and facet arthropathy resulting in moderate right neural foraminal stenosis and mild left neural foraminal stenosis; C4-5 disc osteophyte complex with uncovertebral and facet arthropathy resulting in moderate bilateral neural foraminal stenosis and mild central stenosis; C5-6 eccentric right disc osteophyte complex with uncovertebral and facet arthropathy resulting in severe right and moderate left neuroforaminal stenosis with mild central stenosis; C6-7 disc osteophyte complex with uncovertebral and facet arthropathy resulting in moderate right and severe left neural foraminal stenosis with mild central stenosis; C7-T1 degenerative changes with severe right neural foraminal stenosis; no obvious cord signal change MRI of the right brachial plexus taken on 03/30/2021: Extremely limited exam of the brachial plexus; Severe multilevel right neural foraminal narrowing s econdary to degenerative changes better visualized on CT imaging of the cervical spine; the right brachial plexus bruits, trunks, and proximal aspects of the cords are without any focal mass effect upon and or abnormal signal intensity compared to the left brachial plexus; visualized left brachial plexus is grossly unremarkable; brachial plexus appears symmetrical; no focal mass or abnormal T2 signal is seen involving the right brachial plexus - Labs Labs: Abnormal Lab Results - Last 24 Hours (Table) 04/02/21 04/02/21 04/02/21 Range/Units 05:36 12:05 17:00 Sodium 147 H (135-145) mmol/L Potassium 3.1 L (3.5-5.5) mmol/L Chloride 112 H (96-109) mmol/L BUN 91.3 H (9.0-27.0) mg/dL Creatinine 2.9 H (0.6-1.5) mg/dL Est GFR (CKD-EPI)AfAm 24.5 L (60.0-200.0) Est GFR (CKD-EPI)NonAf 21.1 L (60.0-200.0) BUN/Creatinine Ratio 31.48 H (12.00-20.00) Ratio Glucose 153 H (70-110) mg/dL POC Glucose (mg/dL) 174 H 222 H (75-99) mg/dL Calcium 8.6 L (8.7-10.3) mg/dL 04/02/21 04/03/21 Range/Units 20:58 06:59 Sodium (135-145) mmol/L Potassium (3.5-5.5) mmol/L Chloride (96-109) mmol/L BUN (9.0-27.0) mg/dL Creatinine (0.6-1.5) mg/dL Est GFR (CKD-EPI)AfAm (60.0-200.0) Est GFR (CKD-EPI)NonAf (60.0-200.0) BUN/Creatinine Ratio (12.00-20.00) Ratio Glucose (70-110) mg/dL POC Glucose (mg/dL) 229 H 165 H (75-99) mg/dL Calcium (8.7-10.3) mg/dL H & H 03/21/21 03/22/21 03/23/21 Range/Units 13:08 12:28 04:45 Hgb 17.4 15.8 13.6 (13.0-17.5) gm/dL Hct 53.6 H 49.8 42.7 (39.0-53.0) % 03/24/21 03/25/21 03/27/21 Range/Units 04:40 05:28 05:48 Hgb 11.1 L 10.8 L 9.9 L (13.0-17.5) gm/dL Hct 36.2 L 33.7 L 30.8 L (39.0-53.0) % 03/28/21 03/29/21 03/31/21 Range/Units 07:58 05:27 06:27 Hgb 11.9 L 10.5 L 10.0 L (13.0-17.5) gm/dL Hct 35.9 L 31.6 L 29.8 L (39.0-53.0) % Coagulation 03/21/21 Range/Units 13:08 INR 1.1 (<1.2) Result Diagrams: 03/31/21 06:27 04/02/21 05:36 Assessment and Plan Assessment: Assessment: Compartment syndrome right upper extremity Compressive neuropathy right upper extremity Status post fall Acute global right upper extremity weakness Acute reduced right upper extremity sensation C5-6 and C7-T1 severe right neural foraminal stenosis C3-4, C4-5, and C6-7 moderate right neural foraminal stenosis C4-5, C5-6, and C6-7 mild central stenosis Multilevel cervical degenerative disc disease Urinary tract infection Lactic acidosis Acute kidney injury Parkinson's disease Acute rhabdomyolysis Hyperkalemia COVID-19 infection Distal minimally displaced right clavicle fracture Diabetes mellitus Obesity (1) Right arm weakness Current Visit: Yes Status: Acute Code(s): R29.898 - OTH SYMPTOMS AND SIGNS INVOLVING THE MUSCULOSKELETAL SYSTEM SNOMED Code(s): 209244232 (2) Reduced sensation Current Visit: Yes Status: Acute Code(s): R20.1 - HYPOESTHESIA OF SKIN SNOMED Code(s): 218791592 (3) Cervical stenosis of spinal canal Current Visit: Yes Status: Acute Code(s): M48.02 - SPINAL STENOSIS, CERVICAL REGION SNOMED Code(s): 57452897 (4) Foraminal stenosis of cervical region Current Visit: Yes Status: Acute Code(s): M48.02 - SPINAL STENOSIS, CERVICAL REGION SNOMED Code(s): 159598837359 (5) Degenerative cervical disc Current Visit: Yes Status: Acute Code(s): M50.30 - OTHER CERVICAL DISC DEGENERATION, UNSP CERVICAL REGION SNOMED Code(s): 05252831 (6) Parkinsons disease Current Visit: Yes Status: Acute Code(s): G20 - PARKINSON'S DISEASE SNOMED Code(s): 49925743 (7) Clavicle fracture Current Visit: Yes Status: Acute Code(s): S42.009A - FRACTURE OF UNSP PART OF UNSP CLAVICLE, INIT FOR CLOS FX SNOMED Code(s): 62180659 (8) Diabetes mellitus Current Visit: Yes Status: Acute Code(s): E11.9 - TYPE 2 DIABETES MELLITUS WITHOUT COMPLICATIONS SNOMED Code(s): 35173530 (9) Obesity (BMI 30-39.9) Current Visit: Yes Status: Acute Code(s): E66.9 - OBESITY, UNSPECIFIED SNOMED Code(s): 587301887 (10) MINI (acute kidney injury) Current Visit: Yes Status: Acute Code(s): N17.9 - ACUTE KIDNEY FAILURE, UNSPECIFIED SNOMED Code(s): 86761511 (11) COVID-19 Current Visit: Yes Status: Acute Code(s): U07.1 - COVID-19 SNOMED Code(s): 679353130 (12) Compartment syndrome of forearm Current Visit: Yes Status: Acute Priority: High Onset Date: ~03/21/21 Code(s): T79.A19A - TRAUMATIC COMPARTMENT SYNDROME OF UNSP UPPER EXTREMITY, INIT SNOMED Code(s): 090150605 (13) Compression neuropathy of right upper extremity Current Visit: Yes Status: Acute Code(s): G56.91 - UNSPECIFIED MONONEUROPATHY OF RIGHT UPPER LIMB SNOMED Code(s): 167505930 (14) Fall Current Visit: Yes Status: Acute Code(s): W19.XXXA - UNSPECIFIED FALL, INITIAL ENCOUNTER SNOMED Code(s): 8646320 (15) Hyperkalemia Current Visit: Yes Status: Acute Code(s): E87.5 - HYPERKALEMIA SNOMED Code(s): 25284006 (16) Lactic acidosis Current Visit: Yes Status: Acute Code(s): E87.2 - ACIDOSIS SNOMED Code(s): 66628371 (17) Rhabdomyolysis Current Visit: Yes Status: Acute Code(s): M62.82 - RHABDOMYOLYSIS SNOMED Code(s): 421309686 (18) Urinary tract infection Current Visit: No Status: Acute Code(s): N39.0 - URINARY TRACT INFECTION, SITE NOT SPECIFIED SNOMED Code(s): 72377816 Plan: Plan: 1. We will currently planned to continue with the treatment plan as set forth previously. Patient will be seen and examined at the bedside by Dr. Chuck Abel today. Patient will currently plan to continue conservative treatment for his right upper extremity compartment syndrome with compressive neuropathy over the weekend. He underwent repeat irrigation debridement with wound VAC change yesterday, 04/02/2021. He will also continue conservative treatment regards to his right minimally displaced clavicle fracture. He should remain non- weightbearing with the right upper extremity. Currently, he is unable to perform any active range of motion with the right upper extremity as he has significant weakness globally with the right upper extremity. We did again discuss his recent MRI imaging of his right brachial plexus and cervical spine. There were not any significant findings in regards to his right brachial plexus, however imaging was extremely limited. He does have significant degenerative changes at his cervical spine with multilevel right-sided foraminal stenosis. Patient states prior to laying on his right side for 2-1/2 days he was not experiencing any significant right upper extremity weakness or radiculopathy. He had good active range of motion of his right upper extremity without difficulty. We did discuss his degenerative changes of his cervical spine but that his symptoms are most likely in relation to the acute compartment syndrome and compressive neuropathy he is experiencing after laying on his right arm for 2-1/2 days. We did discuss we will continue to monitor and manage his right upper extremity. We did discuss based on his progress there is a possibility he may need further intervention and treatment including and even including the possibility of surgical intervention at his cervical spine if his symptoms fail to improve with treatment and it seems that his significant global right upper extremity weakness is coming more from his cervical spine rather than his compressive neuropathy and compartment syndrome. It seems currently that his findings on cervical MRI imaging are more chronic in nature as the patient was not experiencing any significant right upper extremity weakness or radiculopathy prior to his fall and that his current symptoms are more in relation as a result of his prolonged lying on his right upper extremity resulting in right upper extremity compartment syndrome and compressive neuropathy. Cervical MRI and brachial plexus MRI imaging was also reviewed by neurology who also felt his global right upper extremity weakness did not correlate well with his findings on his cervical spine MRI. We would not currently plan for acute surgical intervention at his cervical spine as his symptoms currently appear to be stemming more from his recent episode of lying on his right upper extremity for 2-1/2 resulting in compartment syndrome and compressive neuropathy. Patient feels this is a good plan of care. She was previously started on Solu-Medrol 60 mg IV every 12 hours to see if this can help improve his right upper extremity weakness. We'll continue with this medication if okayed by medicine. This medication may be discontinued by medicine or other medical provider if necessary. Since starting on this medication he feel some increased sensation in his right upper extremity but no significant improvement in his weakness. We are not currently planning for any specific treatment in regards to his distal minimally displaced right clavicle fracture and we'll continue with conservative care. We will not plan for bracing at this time. He is not currently complaining of any significant pain at his right clavicle. 2. Patient will continue with multiple other medical providers including including neurology, nephrology, medicine, infectious disease, and wound care for multiple medical diagnoses including compartment syndrome of the right upper extremity, compressive neuropathy right upper extremity, status post fall, urinary tract infection, lactic acidosis, acute kidney injury, Parkinson's disease, acute rhabdomyolysis, hyperkalemia, COVID-19 infection, diabetes mellitus, obesity, and distal nondisplaced right clavicle fracture Time with Patient: Greater than 30 (Including obtaining history, physical examination, reviewing of imaging, and dictation.) <Estefani Abel - Last Filed: 04/03/21 12:26> Physical Examination Osteopathic Statement: *. No significant issues noted on an osteopathic structural exam other than those noted in the History and Physical/Consult. Results - Labs Labs: Abnormal Lab Results - Last 24 Hours (Table) 04/02/21 04/02/21 04/03/21 Range/Units 17:00 20:58 06:45 Sodium 146 H (135-145) mmol/L Chloride 112 H (96-109) mmol/L BUN 82.4 H (9.0-27.0) mg/dL Creatinine 2.6 H (0.6-1.5) mg/dL Est GFR (CKD-EPI)AfAm 27.9 L (60.0-200.0) Est GFR (CKD-EPI)NonAf 24.1 L (60.0-200.0) BUN/Creatinine Ratio 31.69 H (12.00-20.00) Ratio Glucose 162 H (70-110) mg/dL POC Glucose (mg/dL) 222 H 229 H (75-99) mg/dL Calcium 8.5 L (8.7-10.3) mg/dL 04/03/21 04/03/21 Range/Units 06:59 11:37 Sodium (135-145) mmol/L Chloride (96-109) mmol/L BUN (9.0-27.0) mg/dL Creatinine (0.6-1.5) mg/dL Est GFR (CKD-EPI)AfAm (60.0-200.0) Est GFR (CKD-EPI)NonAf (60.0-200.0) BUN/Creatinine Ratio (12.00-20.00) Ratio Glucose (70-110) mg/dL POC Glucose (mg/dL) 165 H 215 H (75-99) mg/dL Calcium (8.7-10.3) mg/dL H & H 03/21/21 03/22/21 03/23/21 Range/Units 13:08 12:28 04:45 Hgb 17.4 15.8 13.6 (13.0-17.5) gm/dL Hct 53.6 H 49.8 42.7 (39.0-53.0) % 03/24/21 03/25/21 03/27/21 Range/Units 04:40 05:28 05:48 Hgb 11.1 L 10.8 L 9.9 L (13.0-17.5) gm/dL Hct 36.2 L 33.7 L 30.8 L (39.0-53.0) % 03/28/21 03/29/21 03/31/21 Range/Units 07:58 05:27 06:27 Hgb 11.9 L 10.5 L 10.0 L (13.0-17.5) gm/dL Hct 35.9 L 31.6 L 29.8 L (39.0-53.0) % Coagulation 03/21/21 Range/Units 13:08 INR 1.1 (<1.2) Result Diagrams: 03/31/21 06:27 04/03/21 06:45 Assessment and Plan Plan: I personally saw the patient and reviewed the imaging. I agree with the dictation above and treatment the patient has had thus far. I reviewed the notes from each service including neurology and orthopedics. Cervical MRI shows degenerative changes and disc protrusion with right foraminal stenosis at C4 5 and C5 6. There is no significant central stenosis. The brachial plexus MRI report is reviewed. It does not show obvious mass effect or obvious damage at the brachial plexus itself. It is somewhat limited due to the patient's motion. Status post fall with prolonged positioning with new right upper extremity weakness since his fall. Right upper extremity brachial plexopathy due to his fall and prolonged positioning Right upper extremity compartment syndrome status post fasciotomy Cervical degenerative disc disease with disc protrusion and right foraminal stenosis C4 5 C5 6 which does not correlate well with the patient's right upper extremity global neurologic symptoms Covid positive Rhabdomyolysis Diabetes Nondisplaced right clavicle fracture I agree with these treatments above to plan to continue with conservative treatment in terms of his cervical spine. I do not think that the cervical spine findings correlate well with his upper extremity symptoms and I do not plan any specific intervention for his cervical spine at this point. He appears to have severe brachial plexopathy due to his prolonged positioning after his fall and being stuck. He had severe compartment syndrome and underwent fasciotomy which I believe is appropriate. He is being treated appropriately with wound care to manage that as well and will continue to follow with Dr. Paez in this regard. I appreciate the neurology workup and comments and I am in agreement with their findings of brachial plexopathy with continued conservative treatment for this. I do not have plans from a surgical standpoint for his spine at this point. From a spine standpoint we can follow him up on an as-needed basis and he should continue management with neurology and orthopedics as well as infectious disease and medicine.
--- NOTE | 2021-04-03 09:24 | P.PN ---
Subjective Progress Note Date: 04/03/21 This is a 70-year-old male who is admitted and being managed for compartment syndrome. Patient is status post irrigation of the volar compartment of right forearm and application of Prevena wound VAC and regular wound VAC with partial closure and elastic retention banding volar wound by Dr. Paez. This is postoperative day #1 and patient is seen and evaluated at bedside today. Patient denies any new complaints today. Objective - Vital Signs Vital signs: Vital Signs Temp 97.7 F 04/03/21 05:40 Pulse 57 L 04/03/21 05:40 Resp 16 04/03/21 08:00 BP 127/68 04/03/21 05:40 Pulse Ox 96 04/03/21 05:40 Intake & Output 04/02/21 04/03/21 04/03/21 18:59 06:59 18:59 Intake Total 781 710 Output Total 650 1250 Balance 131 -540 Intake: IV 301 710 Dextrose 5% in Water 1, 660 000 ml @ 60 mls/hr IV . [id number] ANABEL Rx#:[id number] ceFAZolin 2 gm In Sodium 50 Chloride 0.9% 50 ml @ 100 mls/hr IVPB Q12HR [facility] Rx #:[id number] Intake, IV Titration 480 Amount Dextrose 5% in Water 1, 480 000 ml @ 60 mls/hr IV . [id number] [facility]NABEL Rx#:[id number] Output: Urine 650 1250 Estimated Blood Loss 0 Other: Voiding Method Indwelling Catheter Indwelling Catheter ABP, PAP, CO, CI - Last Documented Arterial Blood Pressure 114/75 - Exam Vital signs are stable. Patient is in no acute distress and is alert. Wound VAC is in place to the right upper extremity. Radial pulse is 2+. Capillary refill is normal at less than 2 seconds. - Labs CBC & Chem 7: 03/31/21 06:27 04/02/21 05:36 Labs: Abnormal Lab Results - Last 24 Hours (Table) 04/02/21 04/02/21 04/02/21 Range/Units 12:05 17:00 20:58 POC Glucose (mg/dL) 174 H 222 H 229 H (75-99) mg/dL 04/03/21 Range/Units 06:59 POC Glucose (mg/dL) 165 H (75-99) mg/dL Assessment and Plan (1) COVID-19 Current Visit: Yes Status: Acute Code(s): U07.1 - COVID-19 SNOMED Code(s): 222275983 (2) Compartment syndrome of right upper extremity Current Visit: Yes Status: Acute Code(s): T79.A11A - TRAUMATIC COMPARTMENT SYNDROME OF R UP EXTREM, INIT SNOMED Code(s): 860102983 (3) Fall Current Visit: Yes Status: Acute Code(s): W19.XXXA - UNSPECIFIED FALL, INITIAL ENCOUNTER SNOMED Code(s): 5905096 Plan: 1. Continue current treatment plan with wound VAC. 2. Antibiotics per infectious disease. 3. We will continue to follow closely.
--- NOTE | 2021-04-03 11:07 | P.PN ---
Subjective Patient is seen in follow-up for acute kidney injury. Morning labs pending. Nonoliguric. Blood pressure stable. On 2 L nasal cannula. Denies chest pain or shortness of breath. Oral intake fair. Acidosis improved. Vital signs are stable. General: On nasal cannula. HEENT: Head exam is unremarkable. LUNGS: Breath sounds decreased. HEART: Rate and Rhythm are regular. ABDOMEN: Soft, no distention. EXTREMITITES: Trace edema. Objective - Vital Signs Vital signs: Vital Signs Temp 97.5 F L 04/03/21 10:00 Pulse 60 04/03/21 10:00 Resp 17 04/03/21 10:00 BP 128/71 04/03/21 10:00 Pulse Ox 96 04/03/21 10:00 Intake & Output 04/02/21 04/03/21 04/03/21 18:59 06:59 18:59 Intake Total 781 710 Output Total 650 1250 Balance 131 -540 Intake: IV 301 710 Dextrose 5% in Water 1, 660 000 ml @ 60 mls/hr IV . [id number] [facility]EL Rx#:[id number] ceFAZolin 2 gm In Sodium 50 Chloride 0.9% 50 ml @ 100 mls/hr IVPB Q12HR [facility] Rx #:[id number] Intake, IV Titration 480 Amount Dextrose 5% in Water 1, 480 000 ml @ 60 mls/hr IV . [id number] [facility]EL Rx#:[id number] Output: Urine 650 1250 Estimated Blood Loss 0 Other: Voiding Method Indwelling Catheter Indwelling Catheter ABP, PAP, CO, CI - Last Documented Arterial Blood Pressure 114/75 - Labs CBC & Chem 7: 03/31/21 06:27 04/02/21 05:36 Labs: Abnormal Lab Results - Last 24 Hours (Table) 04/02/21 04/02/21 04/02/21 Range/Units 12:05 17:00 20:58 POC Glucose (mg/dL) 174 H 222 H 229 H (75-99) mg/dL 04/03/21 Range/Units 06:59 POC Glucose (mg/dL) 165 H (75-99) mg/dL Assessment and Plan Plan: Assessment: 1. Acute kidney injury secondary to ATN secondary to rhabdomyolysis. Renal function gradually improving. Creatinine 2.9 yesterday. 2. Rhabdomyolysis secondary to fall and crush injury. CK levels improved. 3. Right forearm compartment syndrome status post fasciotomy and wound VAC placement. Underwent irrigation yesterday. 4. Hypokalemia from poor intake. Replaced. 5. Metabolic acidosis secondary to acute kidney injury and IV fluids. On oral bicarbonate. Improved. 6. Diabetes mellitus. 7. COVID-19 infection. 8. Hypernatremia from the oral water intake. Plan: Maintain D5W at 60 mL an hour. Encouraged oral intake. Avoid nephrotoxins. Follow-up morning labs. Continue to monitor renal function and urine output.
[2021-04-03 11:38] LABS: Glucose,Whole Blood 215 mg/dL (75-99)
[2021-04-03 11:50] LABS: African American GFR (CKD) 27.9 (60.0-200.0); Anion Gap 13.3 mmol/L (10.00-18.00); BUN/Creat Ratio 31.69 Ratio (12.00-20.00); Blood Urea Nitrogen 82.4 mg/dL (9.0-27.0); Calcium 8.5 mg/dL (8.7-10.3); Carbon Dioxide 20.7 mmol/L (20.0-27.5); Magnesium 2.1 mg/dL (1.5-2.4); Non-African American GFR(CKD) 24.1 (60.0-200.0); Potassium 3.6 mmol/L (3.5-5.5)
--- NOTE | 2021-04-03 13:37 | P.DS ---
Providers Date of admission: 03/21/21 14:50 Expected date of discharge: 04/03/21 Attending physician: Guru Pennington Consults: 03/21/21 14:50 Consult Physician Urgent Consulting Provider: Adrian Sy Consult Reason/Comments: fall, compartment syndrom RUE, hyperkalemia Do you want consulting provider notified?: Already Contacted 03/21/21 14:55 Consult Physician Urgent Consulting Provider: Justin Wade Consult Reason/Comments: dense right mca, right Do you want consulting provider notified?: Yes 03/21/21 17:29 Consult Physician Urgent Consulting Provider: French Muro Consult Reason/Comments: Wound care and antibiotic management. Do you want consulting provider notified?: Yes 03/22/21 15:58 Consult Physician Routine Consulting Provider: Emmanuel Stark Consult Reason/Comments: MINI, hyperkalemia Do you want consulting provider notified?: Yes 03/22/21 17:25 Consult Physician Urgent Consulting Provider: Chalino Lora Consult Reason/Comments: icu management Do you want consulting provider notified?: Yes 03/23/21 18:20 Consult Physician Urgent Consulting Provider: Lalo Paez Consult Reason/Comments: compartment syndrome Do you want consulting provider notified?: Already Contacted 03/28/21 14:36 Consult Physician Urgent Consulting Provider: Justin Wade Consult Reason/Comments: Eval for possible brachial plexus injury RUE. Do you want consulting provider notified?: Yes 04/02/21 12:24 Consult Physician Urgent Consulting Provider: Estefani Abel Consult Reason/Comments: Eval cervical spine, RUE weakness Do you want consulting provider notified?: Yes Primary care physician: Guru Pennington [facility] Course: HISTORY OF PRESENT ILLNESS 70-year-old male patient of Dr. Pennington with past medical history of Parkinson's, diabetes with diabetic neuropathy, hypothyroidism, calendar in 2007, chronic back pain with lumbar surgery 25 years ago comes in after he was found pinned in between his bed and the nightstand. Patient stated that he was rolling in his bed when he got stuck. According to the daughter bedside it appears patient has been stuck there for 2 days since he has not taken his medication. Patient was unable to reach anybody. Since nobody heard anything from the patient family called neighbors and friends to check on him. Patient was alert and was found suspended and there in between his bed and nightstand and unable to move himself from this position. Patient was released from his position and brought to the hospital. He is unable to move his right upper extremity with significant bruising and ecchymosis involving the forearm and the hand. Patient has no mobility involving his right arm , with contracture involving his hand.. Patient denies dizziness, confusion or recent falls. He states he was doing well and had no fever, chills, polyuria increased frequency or concern for sepsis. He did see a urologist at [facility] for his recurrent UTIs in January and was found to have a urine infection. Patient was admitted in in October for recurrent falls and UTI sepsis with E. coli resistant to fluoroquinolones. Patient is fairly active at baseline and goes to gym 4 times a week. Patient had a detailed workup including MRI, EEG and echocardiogram on his admission in October, echocardiogram suggest moderate concentric left ventricle hypertrophy with EF 55-60% on the valves with mild mitral and tricuspid regurgitation. Right ventricle pressures were less than 35mm. Vitals reviewed patient is afebrile pulse 63 respiratory rate 16 blood pressure 147/99 oxybutynin 95% on room air. Labs reviewed WBC 13.9 hemoglobin 17.4 sodium 136 potassium 6.1 bicarbonate 19 creatinine 1.35 and blood sugar 242 lactic acid 7.1 AST 660 ALT 259 with CK levels [id number] troponin [address] head and cervical spine showed right ICA hyperdense and recommended CT angiography to: For list exclude internal thrombosis no acute intracranial hemorrhage or mass effect degenerative and nonspecific white matter changes most typical remote ischemia slightly gait greater central competent of ventricle dilation can be associated with normal pressure hydrocephalus severe multilevel degenerative disc disease no fracture X-rays humerus was negative for fracture or dislocation. X-ray forearm suggestive no acute fracture diffuse soft tissue edema suggestive of posttraumatic or postinfectious edema shoulder x-ray on the right shows hairline fracture nondisplaced distal right clavicle with soft tissue edema. Chest x-ray with right lower lobe A to lactose is only infiltrated nodular density right lung may be related to superimposed structure short-term follow-up with repeat chest x-ray recommended. EKG suggested normal sinus rhythm with T-wave abnormality noted x-ray hand no fracture or dislocation but patient's patient's were flexed extensive soft tissue swelling noted 03/22: She and has been hypotensive and ordered for 2 more liters of IV fluid bolus. Blood culture and urine culture in progress. Patient has been afebrile, temperature actually on the lower side 96.7-97.5. Heart rate 78, blood pressure 110/71 after fluids, pulse ox 93% on 4 L nasal cannula. Repeat blood work reveals WBC 12.0. Sodium 133, potassium 6.5, chloride 112, CO2 10, BUN 31 and creatinine 2.65. Blood sugars running between 207 and 221. Repeat lactic acid 2.7. CK 60,158. AST 1424, ALT 87. Kayexalate 30 g, calcium gluconate 1 g with 10 units of regular insulin and D50 50 ML's all ordered. Consult added for nephrology. Orthopedics is planning on returning to or tomorrow to remove wound VAC and assess wounds and possible new wound VAC placement, possible closure partial closure of the wounds. Patient also followed by neurology and infectious disease. Patient is currently on 2 g every 12 hours 03/23: Due to worsening renal function and worsening rhabdomyolysis as well as hypotension yesterday, patient was moved into the intensive care unit. His urine output has been 20-30 ML's. He has been continued on IV fluids currently at 150 mL per hour. We will add in fluid bolus of 2 L. Patient has been seen by nephrology and was started on bicarb drip yesterday now discontinued. Continue to assess daily for need for renal replacement therapy. Vascular surgery is following for possible dialysis catheter. No further vascular intervention for the upper extremity at this time. Neurology has no further plans will recommend follow-up with his neurologist and will sign off the case for now. Renal ultrasound revealed suboptimal study without hydronephrosis bilaterally. 03/24 patient examined at bedside. He has no improvement in sensation involving her right upper extremity. He did have an episode last night when he woke up in Panic as patient thought he lost hus arm. He is otherwise alert and answer questions appropriately. Vitals stable hemoglobin stable, calcium is 6.2 creatinine kinase is 39,000 181. IV fluids are running at 1 50 mL per hour urine output approximately 30 ML per hour. 1 L bolus given to the patient 1 calcium 1 g calcium gluconate ordered. Tums Ultra 45 and repeat treatment 3 times a day. Discussed with patient the possible need to be on PTSD reluctant to start at this point medication. 03/25 patient examined at bedside. He is complaining of significant pain in his right arm is otherwise stable patient's to 94% on 2 L. Hemoglobin stable at 10, BUN and creatinine continued to trend up. Urine continues to remain infected. Urine output is 1.4 L in the past 24 hours patient may need dialysis if no improvement in unit urine output is seen. Dilaudid 0.5 mg stat given 03/26: Patient remains in the intensive care unit. Urine culture finalized with 2 E. coli 1 ESBL, currently on meropenem and followed by Dr. Muro. Nephrology has decreased IV fluids to 70 ML's per hour once patient is eating. He is scheduled for another I&D today with orthopedics. He continues to have no movement to the right upper extremity and has slight sensation. Patient has been afebrile, heart rate in the 70s, blood pressure 121/65, pulse ox 94% on room air. Sodium 134, potassium 4, chloride 108, CO2 20, BUN 57 creatinine 4.64. Blood sugars running between 106 and 160. AST 873. 03/27: Patient remains in the intensive care unit but has been downgraded to [facility] without telemetry. Patient underwent I&D irrigation only yesterday with Dr. Paez. Wound VAC is in place and there is a collection of blood within the dressing. Repeat I&D scheduled for tomorrow. Patient is continued on meropenem. Patient is afebrile, heart rate 85, blood pressure 120/92, pulse ox 95% on room air. BUN 60, creatinine 4.47. Capillary blood glucose running between 121 at 201. Urine output is 60-75 mL per hour. Nephrology is not planning on renal replacement. Repeat chest x-ray reveals patchy basilar atelectasis and/or infiltrates persist unchanged. 03/28: Patient is seen today on the [facility] floor. Patient is scheduled for I&D and wound VAC change today in the OR with Dr. Paez today. Patient has very minimal movement to the fingers on the right. PT and OT working with the patient as well. Patient has significant edema to the right shoulder and upper arm, right clavicle area. CBG 123-153. BUN 68 creatinine 4.22. CK from yesterday was 19,643. AST 570, ALT 90. Discharge plan is for [facility]. Patient also had a midline placed yesterday. 03/29: Wound VAC remains in place to the right arm, has slightly less edema and slight movement of his right hand. Patient also noted to have a large right flank hematoma and ecchymosis. Gerardo catheter remains in place. Repeat creatinine is 4.17 and BUN 75, CO2 15. Blood sugar 119. CBGs are running between 120 269. Repeat CK is down to 5896. Patient is currently on LR at 50 ML's per hour, and started on sodium bicarb, continued on meropenem. Patient has been seen by the wound care team with plan to follow-up in the wound healing Center at discharge. Orthopedics is planning for repeat irrigation and a bright red wound VAC change on Friday. For splint has been ordered for his right wrist and fingers to maintain extension.. 03/30: Patient denies any new concerns. Patient is followed closely by orthopedics with plan for irrigation on Friday and change out wound VAC. There is concern that there are no wound VAC canister available in the hospital due to shortage and thus patient may need to be switched to a wet-to-dry dressing. Patient is also followed by infectious disease and continued on Kefzol. CK continues to improve today at 2184. BUN 81 and creatinine 3.87. Nephrology is following closely with no plan for dialysis. Neurology has recommended EMG with NCS of the right upper extremity as an outpatient one possible with recommendations to follow up with his neurologist Dr. Erica Tamayo and recommend further investigation for normal pressure hydrocephalus as an outpatient. 04/02: Over the weekend, patient was started on IV Solu-Medrol to help with sensation in his right upper extremity. We will add and scheduled NovoLog 3 units with meals and also increase Levemir to 10 units at bedtime. He is scheduled for repeat irrigation today. Yesterday, patient received 3 A of bicarb for metabolic acidosis. Patient is afebrile, heart rate 69, blood pressure 110/57, pulse ox 94% on 2 L nasal cannula. Repeat blood work today reveals sodium 147, potassium 3.1, chloride 112, CO2 22. BUN 91 creatinine 2.9. Blood sugars are running between 174 and 224. Magnesium 2.2. Anticipate pos sible discharge to rehab tomorrow. MRI of the cervical spine revealed multilevel disc degeneration with neural foraminal stenosis worse on the right. Severe right neural foraminal stenosis at C5-C6, C6-C7, C7-T1 and moderate right neural foraminal stenosis at C3-C4 and C4-C5. Moderate left neural foraminal stenosis at C4-C5, C5-C6 and C6-C7. MRI of the brachial plexus right extremity reveals severe multilevel right neural foraminal narrowing secondary to degenerative disc changes. Extremely limited exam of the brachial plexus. No obvious abnormality. 04/03: Patient underwent additional irrigation of the right arm with Dr. Paez yesterday. Patient continues to have significant loss of function and sensation of the right upper extremity. He is followed also by orthopedic spine regarding cervical spine stenosis, started on Solu-Medrol with no significant improvement. Patient may require surgical intervention at a later date if underlying etiology thought to be related to the cervical spine. Patient is currently on cefazolin with plan for Keflex at discharge per Dr. Muro and also in agreement that patient will only need to be in isolation according to the standard 10 days. Orthopedic spine and orthopedic surgeon have cleared the patient for discharge as well. Patient will be discharged today to rehab in stable condition. DISCHARGE DIAGNOSES 1. Right forearm compartment syndrome -Status post dorsal and volar fasciotomies with Dr. Paez, 03/21. Status post debridement and irrigation on 03/23, Repeat irrigation 03/26, repeat irrigation, closure dorsal fasciotomy wound on 03/28. Irrigation 04/02. PT and OT following. Splint for the right wrist. Plan for outpatient EMG 2. Acute rhabdomyolysis secondary to injury with metabolic acidoses, improving. 3. Hypo-calcemia. 4. Distal nondisplaced right clavicle fracture 5. Acute COVID19 infection. 6. Acute metabolic encephalopathy secondary to sepsis and acute kidney injury, rhabdomyolysis, Dilaudid, resolved. 7. Hyperkalemia secondary to Rhabdomyolysis, resolved. 8. Acute lactic acidosis secondary to hypovolemia. 9. Acute kidney injury secondary to rhabdomyolysis secondary to ATN. 10. Acute transaminitis. Type II uncontrolled diabetes History of UTI, acute ESBL E. coli UTI History of Sepsis secondary to acute urinary tract infection In October 2020 Infectious metabolic encephalopathy, resolved Frequent falls possibly related to worsening Parkinson's, exacerbated by sepsis. Parkinson's. Hypothyroidism. Guillain-[place] syndrome in 2007. Benign prostatic hypertrophy. DISCHARGE PLAN Subacute rehab at [facility] on Friday. Greater than 35 minutes was utilized and coordinating patient's discharge. Impression and plan of care have been directed as dictated by the signing physician. Sophie Hitchcock nurse practitioner acting as scribe for signing physician. Patient Condition at Discharge: Stable Plan - Discharge Summary New Discharge Prescriptions: New Insulin Detemir (Levemir) [Levemir] 15 unit SQ HS ml HYDROcodone/APAP 5-325MG [Blanch 5-325] 1 each PO Q6HR PRN #12 tab PRN Reason: Pain Scale 1 To 5 INSULIN ASPART (NovoLOG) [NovoLOG (formulary)] 0 unit SQ ACHS ml Zinc Sulfate [Orazinc] 220 mg PO DAILY cap Sodium Bicarbonate Tab 1,300 mg PO BID tab Cyanocobalamin [Vitamin B-12] 1,000 mcg PO DAILY tab Ascorbic Acid [Vitamin C] 1,000 mg PO DAILY tab Cephalexin [Keflex] 250 mg PO Q6HR #20 cap Sennosides-Docusate Sodium [Senokot-S] 2 each PO HS PRN tab PRN Reason: Constipation Calcium Carbonate [Tums] 500 mg PO TID Ergocalciferol [Vitamin D2 (1250 Mcg = 06816 Iu)] 1,250 mcg PO Q7D capsule ALPRAZolam [Xanax] 0.25 mg PO TID PRN #9 tab PRN Reason: Anxiety Continue Tamsulosin HCl [Flomax] 0.4 mg PO DAILY Multivitamins, Thera [Multivitamin (formulary)] 1 tab PO DAILY Aspirin EC [Ecotrin Low Dose] 81 mg PO DAILY Levothyroxine Sodium [Synthroid] 150 mcg PO DAILY Carbidopa-Levodopa 25-100 mg [Sinemet 25-100 mg] 1.5 tab PO TID Pregabalin [Lyrica] 150 mg PO TID #9 cap Discontinued metFORMIN HCL [Glucophage] 1,000 mg PO BID Discharge Medication List Aspirin EC [Ecotrin Low Dose] 81 mg PO DAILY 10/01/20 [History] Carbidopa-Levodopa 25-100 mg [Sinemet 25-100 mg] 1.5 tab PO TID 10/01/20 [History] Levothyroxine Sodium [Synthroid] 150 mcg PO DAILY 10/01/20 [History] Multivitamins, Thera [Multivitamin (formulary)] 1 tab PO DAILY 10/01/20 [History] Tamsulosin HCl [Flomax] 0.4 mg PO DAILY 10/01/20 [History] ALPRAZolam [Xanax] 0.25 mg PO TID PRN #9 tab 04/03/21 [Rx] Ascorbic Acid [Vitamin C] 1,000 mg PO DAILY tab 04/03/21 [Rx] Calcium Carbonate [Tums] 500 mg PO TID 04/03/21 [Rx] Cephalexin [Keflex] 250 mg PO Q6HR #20 cap 04/03/21 [Rx] Cyanocobalamin [Vitamin B-12] 1,000 mcg PO DAILY tab 04/03/21 [Rx] Ergocalciferol [Vitamin D2 (1250 Mcg = 23540 Iu)] 1,250 mcg PO Q7D capsule 04/03/21 [Rx] HYDROcodone/APAP 5-325MG [Blanch 5-325] 1 each PO Q6HR PRN #12 tab 04/03/21 [Rx] INSULIN ASPART (NovoLOG) [NovoLOG (formulary)] 0 unit SQ ACHS ml 04/03/21 [Rx] Insulin Detemir (Levemir) [Levemir] 15 unit SQ HS ml 04/03/21 [Rx] Pregabalin [Lyrica] 150 mg PO TID #9 cap 04/03/21 [Rx] Sennosides-Docusate Sodium [Senokot-S] 2 each PO HS PRN tab 04/03/21 [Rx] Sodium Bicarbonate Tab 1,300 mg PO BID tab 04/03/21 [Rx] Zinc Sulfate [Orazinc] 220 mg PO DAILY cap 04/03/21 [Rx] Follow up Appointment(s)/Referral(s): Guru Pennington MD [Primary Care Provider] - 1-2 days [facility] [place], [NON-STAFF] - As Needed Nereyda Boothe [NON-STAFF] - As Needed (right splint ) Activity/Diet/Wound Care/Special Instructions: Follow-up with neurologist in 2 weeks for EMG with NCS of the right upper extremity and investigation for normal pressure hydrocephalus Wound Care center to manage wound and the wound vacs. Follow up with Dr Paez as needed. Discharge Disposition: TRANSFER TO SNF/ECF
[2021-04-03] MEDS ORDERED: POTASSIUM CHLORIDE ER 20 MEQ TAB.ER PO STA (13:51)
[2021-04-03 17:47] LABS: Glucose,Whole Blood 194 mg/dL (75-99)
[2021-04-03 20:40] LABS: Glucose,Whole Blood 158 mg/dL (75-99)
[2021-04-03] MEDS: INSULIN DETEMIR (LEVEMIR) 100 UNIT/ML SYR SQ SCH (21:28)
--- NOTE | 2021-04-03 22:09 | P.PN ---
Subjective Progress Note Date: 04/03/21 Principal diagnosis: Right forearm compartment syndrome , covid 19 infection Patient is a 70-year-old male who was brought into the hospital after the patient was started between bed and nightstand for 2 days noticed to have compartment syndrome right forearm status post fasciotomy 3, patient was transferred to the ICU last night because of worsening hypotension. Patient was taken back to the OR 03/23/2021 and is status post debridement of devitalized tissue and reapplication of the wound VAC, and did have a washout and change of the wound VAC on 03/27/2021, 03/28/2021 and 04/02/2021 On today's evaluation, and that is 04/03/2021 the patient denies any fever or any chills, the patient is breathing comfortably on 2 L nasal cannula, the patient denies chest pain shortness of breath or cough , the patient denies nausea no vomiting no abdominal pain and no diarrhea, the patient can to the right forearm is currently controlled Objective - Vital Signs Vital signs: Vital Signs Temp 97.5 F L 04/03/21 19:12 Pulse 64 04/03/21 19:12 Resp 18 04/03/21 19:12 BP 121/74 04/03/21 19:12 Pulse Ox 99 04/03/21 19:12 Intake & Output 04/03/21 04/03/21 04/04/21 06:59 18:59 06:59 Intake Total 710 Output Total 1250 400 Balance -540 -400 Intake: IV 710 Dextrose 5% in Water 1, 660 000 ml @ 60 mls/hr IV . [id number] ANABEL Rx#:[id number] ceFAZolin 2 gm In Sodium 50 Chloride 0.9% 50 ml @ 100 mls/hr IVPB Q12HR ANABEL Rx #:[id number] Output: Urine 1250 400 Uretheral (Gerardo) 400 Other: Voiding Method Indwelling Catheter ABP, PAP, CO, CI - Last Documented Arterial Blood Pressure 114/75 - Exam GENERAL DESCRIPTION:[ Patient is awake and alert in no distress] HEENT: [Oral mucosa is dry and no pharyngeal erythema] EYES : [No pallor or scleral icterus] RESPIRATORY SYSTEM: [Unlabored breathing decreased breath sounds at the base] CARDIA VASCULAR SYSTEM: [S1-S2 regular rate and rhythm no murmur] GI: [Abdominal soft there's no tenderness no organomegaly] EXTREMITIES: [Right forearm currently covered with a wound VAC there's no significant swelling no redness] - Labs CBC & Chem 7: 03/31/21 06:27 04/03/21 06:45 Labs: Abnormal Lab Results - Last 24 Hours (Table) 04/03/21 04/03/21 04/03/21 Range/Units 06:45 06:59 11:37 Sodium 146 H (135-145) mmol/L Chloride 112 H (96-109) mmol/L BUN 82.4 H (9.0-27.0) mg/dL Creatinine 2.6 H (0.6-1.5) mg/dL Est GFR (CKD-EPI)AfAm 27.9 L (60.0-200.0) Est GFR (CKD-EPI)NonAf 24.1 L (60.0-200.0) BUN/Creatinine Ratio 31.69 H (12.00-20.00) Ratio Glucose 162 H (70-110) mg/dL POC Glucose (mg/dL) 165 H 215 H (75-99) mg/dL Calcium 8.5 L (8.7-10.3) mg/dL 04/03/21 04/03/21 Range/Units 17:28 20:38 Sodium (135-145) mmol/L Chloride (96-109) mmol/L BUN (9.0-27.0) mg/dL Creatinine (0.6-1.5) mg/dL Est GFR (CKD-EPI)AfAm (60.0-200.0) Est GFR (CKD-EPI)NonAf (60.0-200.0) BUN/Creatinine Ratio (12.00-20.00) Ratio Glucose (70-110) mg/dL POC Glucose (mg/dL) 194 H 158 H (75-99) mg/dL Calcium (8.7-10.3) mg/dL Assessment and Plan (1) Compartment syndrome of forearm Current Visit: Yes Status: Acute Priority: High Onset Date: ~03/21/21 Code(s): T79.A19A - TRAUMATIC COMPARTMENT SYNDROME OF UNSP UPPER EXTREMITY, INIT SNOMED Code(s): 741400640 (2) COVID-19 Current Visit: Yes Status: Acute Code(s): U07.1 - COVID-19 SNOMED Code(s): 272489464 Plan: Patient with right forearm compartment syndrome traumatic in this patient with status post fasciotomy and wound VAC application , patient is afebrile and his white count is normal, blood culture has been negative, no local cultures , patient is currently covered with cefazolin which will be transitioned to oral Keflex on discharge 7 days and close outpatient follow-up 2-patient did have a positive covid test, no significant respiratory symptoms and the patient patient's symptom has been going on for almost 2 weeks now as the patient was not symptomatic from his covid , 10 days of isolation should be more than enough Time with Patient: Less than 30
[2021-04-04] MEDS: ACETAMINOPHEN TAB 325 MG TAB PO PRN (05:40)
[2021-04-04] MEDS: LEVOTHYROXINE 75 MCG TAB PO SCH (05:40)
[2021-04-04 07:06] LABS: Glucose,Whole Blood 214 mg/dL (75-99)
[2021-04-04] MEDS: methylPREDNISolone SOD SUCCI 125 MG/2 ML VIAL IV SCH (07:37)
[2021-04-04] MEDS: INSULIN ASPART (NovoLOG) 100 UNIT/ML VIAL SQ SCH ×2 (07:37→12:30)
[2021-04-04] MEDS: HEPARIN SODIUM,PORCINE/PF 5,000 UNIT/0.5 ML SYRINGE SQ SCH (07:37)
[2021-04-04] MEDS: MULTIVITAMINS, THERA 1 EACH TAB PO SCH (07:38)
[2021-04-04] MEDS: CARBIDOPA-LEVODOPA 25-100 MG 1 EACH TAB PO SCH ×2 (07:38→14:31)
[2021-04-04] MEDS: SODIUM BICARBONATE TAB 650 MG TAB PO SCH (07:38)
[2021-04-04] MEDS: ASCORBIC ACID 500 MG TAB PO SCH (07:38)
[2021-04-04] MEDS: ZINC SULFATE 220 MG CAP PO SCH (07:38)
[2021-04-04] MEDS: TAMSULOSIN 0.4 MG CAP.ER.24H PO SCH (07:38)
[2021-04-04] MEDS: CALCIUM CARBONATE 500 MG CHEWABLE PO SCH ×2 (07:38→14:31)
[2021-04-04] MEDS: HYDROcodone/APAP 5-325MG 1 EACH TAB PO PRN ×2 (07:39→14:30)
[2021-04-04] MEDS: CYANOCOBALAMIN 500 MCG TAB PO SCH (07:39)
[2021-04-04] MEDS: PREGABALIN 75 MG CAP PO SCH ×2 (07:39→14:30)
[2021-04-04 09:25] LABS: African American GFR (CKD) 34.2 (60.0-200.0); Anion Gap 10.6 mmol/L (10.00-18.00); BUN/Creat Ratio 34.14 Ratio (12.00-20.00); Blood Urea Nitrogen 75.1 mg/dL (9.0-27.0); Calcium 8.3 mg/dL (8.7-10.3); Carbon Dioxide 22.4 mmol/L (20.0-27.5); Non-African American GFR(CKD) 29.5 (60.0-200.0); Potassium 3.7 mmol/L (3.5-5.5)
--- NOTE | 2021-04-04 10:44 | P.PN ---
Subjective Progress Note Date: 04/03/21 HISTORY OF PRESENT ILLNESS 70-year-old male patient of Dr. Pennington with past medical history of Parkinson's, diabetes with diabetic neuropathy, hypothyroidism, calendar in 8, chronic back pain with lumbar surgery 25 years ago comes in after he was found pinned in between his bed and the nightstand. Patient stated that he was rolling in his bed when he got stuck. According to the daughter bedside it appears patient has been stuck there for 2 days since he has not taken his medication. Patient was unable to reach anybody. Since nobody heard anything from the patient family called neighbors and friends to check on him. Patient was alert and was found suspended and there in between his bed and nightstand and unable to move himself from this position. Patient was released from his position and brought to the hospital. He is unable to move his right upper ex tremity with significant bruising and ecchymosis involving the forearm and the hand. Patient has no mobility involving his right arm , with contracture involving his hand.. Patient denies dizziness, confusion or recent falls. He states he was doing well and had no fever, chills, polyuria increased frequency or concern for sepsis. He did see a urologist at [facility] for his recurrent UTIs in January and was found to have a urine infection. Patient was admitted in in October for recurrent falls and UTI sepsis with E. coli resistant to fluoroquinolones. Patient is fairly active at baseline and goes to gym 4 times a week. Patient had a detailed workup including MRI, EEG and echocardiogram on his admission in October, echocardiogram suggest moderate concentric left ventricle hypertrophy with EF 55-60% on the valves with mild mitral and tricuspid regurgitation. Right ventricle pressures were less than 35mm. Vitals reviewed patient is afebrile pulse 63 respiratory rate 16 blood pressure 147/99 oxybutynin 95% on room air. Labs reviewed WBC 13.9 hemoglobin 17.4 sodium 136 potassium 6.1 bicarbonate 19 creatinine 1.35 and blood sugar 242 lactic acid 7.1 AST 660 ALT 259 with CK levels [id number] troponin [address] head and cervical spine showed right ICA hyperdense and recommended CT angiography to: For list exclude internal thrombosis no acute intracranial hemorrhage or mass effect degenerative and nonspecific white matter changes most typical remote ischemia slightly gait greater central competent of ventricle dilation can be associated with normal pressure hydrocephalus severe multilevel degenerative disc disease no fracture X-rays humerus was negative for fracture or dislocation. X-ray forearm suggestive no acute fracture diffuse soft tissue edema suggestive of posttraumatic or postinfectious edema shoulder x-ray on the right shows hairline fracture nondisplaced distal right clavicle with soft tissue edema. Chest x-ray with right lower lobe A to lactose is only infiltrated nodular density right lung may be related to superimposed structure short-term follow-up with repeat chest x-ray recommended. EKG suggested normal sinus rhythm with T-wave abnormality noted x-ray hand no fracture or dislocation but patient's patient's were flexed extensive soft tissue swelling noted 03/22: She and has been hypotensive and ordered for 2 more liters of IV fluid bolus. Blood culture and urine culture in progress. Patient has been afebrile, temperature actually on the lower side 96.7-97.5. Heart rate 78, blood pressure 110/71 after fluids, pulse ox 93% on 4 L nasal cannula. Repeat blood work reveals WBC 12.0. Sodium 133, potassium 6.5, chloride 112, CO2 10, BUN 31 and creatinine 2.65. Blood sugars running between 207 and 221. Repeat lactic acid 2.7. CK 60,158. AST 1424, ALT 87. Kayexalate 30 g, calcium gluconate 1 g with 10 units of regular insulin and D50 50 ML's all ordered. Consult added for nephrology. Orthopedics is planning on returning to or tomorrow to remove wound VAC and assess wounds and possible new wound VAC placement, possible closure partial closure of the wounds. Patient also followed by neurology and infectious disease. Patient is currently on 2 g every 12 hours 03/23: Due to worsening renal function and worsening rhabdomyolysis as well as hypotension yesterday, patient was moved into the intensive care unit. His urine output has been 20-30 ML's. He has been continued on IV fluids currently at 150 mL per hour. We will add in fluid bolus of 2 L. Patient has been seen by nephrology and was started on bicarb drip yesterday now discontinued. Continue to assess daily for need for renal replacement therapy. Vascular surgery is following for possible dialysis catheter. No further vascular intervention for the upper extremity at this time. Neurology has no further plans will recommend follow-up with his neurologist and will sign off the case for now. Renal ultrasound revealed suboptimal study without hydronephrosis bilaterally. 03/24 patient examined at bedside. He has no improvement in sensation involving her right upper extremity. He did have an episode last night when he woke up in Panic as patient thought he lost hus arm. He is otherwise alert and answer questions appropriately. Vitals stable hemoglobin stable, calcium is 6.2 creatinine kinase is 39,000 181. IV fluids are running at 1 50 mL per hour urine output approximately 30 ML per hour. 1 L bolus given to the patient 1 calcium 1 g calcium gluconate ordered. Tums Ultra 45 and repeat treatment 3 times a day. Discussed with patient the possible need to be on PTSD reluctant to start at this point medication. 03/25 patient examined at bedside. He is complaining of significant pain in his right arm is otherwise stable patient's to 94% on 2 L. Hemoglobin stable at 10, BUN and creatinine continued to trend up. Urine continues to remain infected. Urine output is 1.4 L in the past 24 hours patient may need dialysis if no improvement in unit urine output is seen. Dilaudid 0.5 mg stat given 03/26: Patient remains in the intensive care unit. Urine culture finalized with 2 E. coli 1 ESBL, currently on meropenem and followed by Dr. Muro. Nephrology has decreased IV fluids to 70 ML's per hour once patient is eating. He is scheduled for another I&D today with orthopedics. He continues to have no movement to the right upper extremity and has slight sensation. Patient has been afebrile, heart rate in the 70s, blood pressure 121/65, pulse ox 94% on room air. Sodium 134, potassium 4, chloride 108, CO2 20, BUN 57 creatinine 4.64. Blood sugars running between 106 and 160. AST 873. 03/27: Patient remains in the intensive care unit but has been downgraded to [facility] without telemetry. Patient underwent I&D irrigation only yesterday with Dr. Paez. Wound VAC is in place and there is a collection of blood within the dressing. Repeat I&D scheduled for tomorrow. Patient is continued on meropenem. Patient is afebrile, heart rate 85, blood pressure 120/92, pulse ox 95% on room air. BUN 60, creatinine 4.47. Capillary blood glucose running between 121 at 201. Urine output is 60-75 mL per hour. Nephrology is not planning on renal replacement. Repeat chest x-ray reveals patchy basilar atelectasis and/or infiltrates persist unchanged. 03/28: Patient is seen today on the [facility] floor. Patient is scheduled for I&D and wound VAC change today in the OR with Dr. Paez today. Patient has very minimal movement to the fingers on the right. PT and OT working with the patient as well. Patient has significant edema to the right shoulder and upper arm, right clavicle area. CBG 123-153. BUN 68 creatinine 4.22. CK from yesterday was 19,643. AST 570, ALT 90. Discharge plan is for [facility]. Patient also had a midline placed yesterday. 03/29: Wound VAC remains in place to the right arm, has slightly less edema and slight movement of his right hand. Patient also noted to have a large right flank hematoma and ecchymosis. Gerardo catheter remains in place. Repeat creatinine is 4.17 and BUN 75, CO2 15. Blood sugar 119. CBGs are running between 120 269. Repeat CK is down to 5896. Patient is currently on LR at 50 ML's per hour, and started on sodium bicarb, continued on meropenem. Patient has been seen by the wound care team with plan to follow-up in the wound healing Center at discharge. Orthopedics is planning for repeat irrigation and a bright red wound VAC change on Friday. For splint has been ordered for his right wrist and fingers to maintain extension.. 03/30: Patient denies any new concerns. Patient is followed closely by orthopedics with plan for irrigation on Friday and change out wound VAC. There is concern that there are no wound VAC canister available in the hospital due to shortage and thus patient may need to be switched to a wet-to-dry dressing. Patient is also followed by infectious disease and continued on Kefzol. CK continues to improve today at 2184. BUN 81 and creatinine 3.87. Nephrology is following closely with no plan for dialysis. Neurology has recommended EMG with NCS of the right upper extremity as an outpatient one possible with recommendations to follow up with his neurologist Dr. Erica Tamayo and recommend further investigation for normal pressure hydrocephalus as an outpatient. 04/02: Over the weekend, patient was started on IV Solu-Medrol to help with sensation in his right upper extremity. We will add and scheduled NovoLog 3 units with meals and also increase Levemir to 10 units at bedtime. He is scheduled for repeat irrigation today. Yesterday, patient received 3 A of bicarb for metabolic acidosis. Patient is afebrile, heart rate 69, blood pressure 110/57, pulse ox 94% on 2 L nasal cannula. Repeat blood work today reveals sodium 147, potassium 3.1, chloride 112, CO2 22. BUN 91 creatinine 2.9. Blood sugars are running between 174 and 224. Magnesium 2.2. Anticipate possible discharge to rehab tomorrow. MRI of the cervical spine revealed multilevel disc degeneration with neural foraminal stenosis worse on the right. Severe right neural foraminal stenosis at C5-C6, C6-C7, C7-T1 and moderate right neural foraminal stenosis at C3-C4 and C4-C5. Moderate left neural foraminal stenosis at C4-C5, C5-C6 and C6-C7. MRI of the brachial plexus right extremity reveals severe multilevel right neural foraminal narrowing secondary to degenerative disc changes. Extremely limited exam of the brachial plexus. No obvious abnormality. 2: Patient underwent additional irrigation of the right arm with Dr. Paez yesterday. Patient continues to have significant loss of function and sensation of the right upper extremity. He is followed also by orthopedic spine regarding cervical spine stenosis, started on Solu-Medrol with no significant improvement. Patient may require surgical intervention at a later date if underlying etiology thought to be related to the cervical spine. Patient is currently on cefazolin with plan for Keflex at discharge per Dr. Muro. Discharge delayed due to need for wound vac at [facility]. Discusses with Orthopedics and preferred that patient have the wound vac prior to leaving the hospital. REVIEW OF SYSTEMS Constitutional: Denies chills, Denies fever, Denies lethargy, Denies malaise, Denies poor appetite, Denies weakness, Denies weight loss Eyes: denies decreased vision, denies diplopia, denies discharge, denies pain Ears: deny: decreased hearing Ears, nose, mouth and throat: Denies dental pain, Denies headache, Denies nasal discharge, Denies nose pain Cardiovascular: Denies chest pain, Denies decreased exercise tolerance, Denies edema, Denies high blood pressure, Denies irregular heart beat, Denies palpitations, Denies paroxysmal nocturnal dyspnea, Denies rapid heart beat, Denies shortness of breath Respiratory: Denies congestion, Denies cough, Denies cough with sputum, Denies dyspnea, Denies home oxygen, Denies wheezing Gastrointestinal: Denies abdominal pain, Denies change in bowel habits, Denies coffee ground emesis, Denies heartburn, Denies hematemesis, Denies hematochezia, Denies loss of appetite, Denies nausea, Denies vomiting Genitourinary: Denies dysuria, Denies flank pain, Denies kidney stones, Denies menorrhagia, Denies urgency, Denies urinary frequency Musculoskeletal: Denies gait dysfunction, Denies limitation of motion, Denies morning stiffness, Denies muscle cramps endorses contracture, swelling, loss of sensation involving right upper extremity Integumentary: Denies rash, Denies wounds, Denies brittle nails Neurological: Denies balance difficulties, no change in speech, Denies double vision, Denies gait dysfunction, Denies loss of vision, Denies numbness, Denies paralysis, loss of sensation to the right arm, paralysis of the right upper extremity, Denies seizures Psychiatric: Denies anxiety, Denies depression mild PTSD Endocrine: Denies excessive sweating, Denies excessive thirst, Denies high blood sugars, Denies palpitations Hematologic/Lymphatic: Denies easy bruising, Denies lymphadenopathy PHYSICAL EXAMINATION Gen: This is a 70-year-old male. He is laying in bed and appears to be comfortable and in no acute distress. HEENT: Head is atraumatic, normocephalic. Pupils equal, round. Sclerae is anicteric. NECK: Supple. No JVD. No lymphadenopathy. No thyromegaly. LUNGS: Clear to auscultation. No wheezes or rhonchi. No intercostal retracti ons. HEART: Regular rate and rhythm. No murmur. ABDOMEN: Soft. Bowel sounds are present. No masses. No tenderness. Gerardo catheter draining clear becki urine. EXTREMITIES: No pedal edema. No calf tenderness. Swelling to the right upper shoulder upper arm and clavicle on the right. Large dressing/wound VAC in place to the right arm. Patient has very small amount of movement of the fingers. NEUROLOGICAL: Patient is awake, alert and oriented x3. Cranial nerves 2 through 12 are grossly intact. ASSESSMENT AND PLAN 1. Right forearm compartment syndrome -Status post dorsal and volar fasciotomies with Dr. Paez, 03/21. Status post debridement and irrigation on 03/23, Repeat irrigation 03/26, repeat irrigation, closure dorsal fasciotomy wound on 03/28. Irrigation 04/02. PT and OT following. Splint has been ordered for the right wrist. Vascular surgery Dr. Gerardo is not planning any further intervention. Plan for outpatient EMG 2. Acute rhabdomyolysis secondary to injury with metabolic acidoses, improving. Consult with nephrology appreciated. Continue IV fluids, s/p bicarb. 3. Hypo-calcemia. Status post calcium gluconate, calcium carbonate 500 3 times a day 4. Distal nondisplaced right clavicle fracture 5. Acute COVID19 infection. Continue isolation 6. Acute metabolic encephalopathy secondary to sepsis and acute kidney injury, rhabdomyolysis, Dilaudid, resolved. Consult with neurology appreciated and signed off. Vitamin B12 1000 g daily added by neurology. 7. Hyperkalemia secondary to Rhabdomyolysis, resolved. 8. Acute lactic acidosis secondary to hypovolemia, status post IV fluid bolus.Continue IV fluids . 9. Acute kidney injury secondary to rhabdomyolysis secondary to ATN. Continue IV fluids, Baseline creatinine 0.8, Avoid nephrotoxic agents, Hold metformin, Consult nephrology appreciated, No plan for dialysis, Sodium bicarb 325 mg twice daily. 10. Acute transaminitis. Monitor Type II uncontrolled diabetes - Last A1c 7.2 - Hold metformin - Continue insulin sliding Scale and Lantus at 5 units at at bedtime History of UTI, acute ESBL E. coli UTI - Merrem. History of Sepsis secondary to acute urinary tract infection In October 2020 - Unclear if patient fall was a result of confusion. Infectious metabolic encephalopathy - resolved - CT head and neck suggestive of hyperdense involving right carotid. We will evaluate with CT angiogram head and neck.. Also mentioned normal pressure hydrocephalus on the CAT scan though MRI was negative for hydrocephalus in October Frequent falls possibly related to worsening Parkinson's, exacerbated by sepsis. - Does PT as outpatient. We'll evaluate for rehab once patient is stableDiabetic polyneuropathy. - Lyrica 150 mg twice daily Parkinson's. -Continue Sinemet 251 101-1/2 3 times daily. Hypothyroidism. -Continue levothyroxine 150 mcg daily. Guillain-Evant syndrome in 2007. Benign prostatic hypertrophy. -Continue Flomax or 0.4 mg daily. GI prophylaxis. Protonix. DVT prophylaxis. Heparin subcu. DISCHARGE PLAN Subacute rehab at [facility] on Friday once wound vac is available. Impression and plan of care have been directed as dictated by the signing physician. Sophie Hitchcock nurse practitioner acting as scribe for signing physician. Objective - Vital Signs Vital signs: Vital Signs Temp 97.7 F 04/03/21 05:40 Pulse 57 L 04/03/21 05:40 Resp 16 04/03/21 08:00 BP 127/68 04/03/21 05:40 Pulse Ox 96 04/03/21 05:40 Intake & Output 04/02/21 04/03/21 04/03/21 18:59 06:59 18:59 Intake Total 781 710 Output Total 650 1250 Balance 131 -540 Intake: IV 301 710 Dextrose 5% in Water 1, 660 000 ml @ 60 mls/hr IV . [id number] ANABEL Rx#:[id number] ceFAZolin 2 gm In Sodium 50 Chloride 0.9% 50 ml @ 100 mls/hr IVPB Q12HR ANABEL Rx #:[id number] Intake, IV Titration 480 Amount Dextrose 5% in Water 1, 480 000 ml @ 60 mls/hr IV . [id number] ANABEL Rx#:[id number] Output: Urine 650 1250 Estimated Blood Loss 0 Other: Voiding Method Indwelling Catheter Indwelling Catheter ABP, PAP, CO, CI - Last Documented Arterial Blood Pressure 114/75 - Labs CBC & Chem 7: 03/31/21 06:27 04/04/21 05:50 Labs: Abnormal Lab Results - Last 24 Hours (Table) 04/02/21 04/02/21 04/02/21 Range/Units 12:05 17:00 20:58 POC Glucose (mg/dL) 174 H 222 H 229 H (75-99) mg/dL 04/03/21 Range/Units 06:59 POC Glucose (mg/dL) 165 H (75-99) mg/dL
[2021-04-04 11:17] VITALS: BP 132/76; PULSE 61; RESP 17; TEMP 97.8
[2021-04-04 11:45] LABS: Glucose,Whole Blood 249 mg/dL (75-99)
--- NOTE | 2021-04-04 12:15 | P.PN ---
Subjective Patient is seen in follow-up for acute kidney injury. Renal function stable. Nonoliguric. Blood pressure stable. On 4 L nasal cannula. Denies chest pain or shortness of breath. Oral intake fair. Vital signs are stable. General: On nasal cannula. HEENT: Head exam is unremarkable. LUNGS: Breath sounds decreased. HEART: Rate and Rhythm are regular. ABDOMEN: Soft, no distention. EXTREMITITES: Trace edema. Objective - Vital Signs Vital signs: Vital Signs Temp 97.8 F 04/04/21 10:00 Pulse 61 04/04/21 10:00 Resp 17 04/04/21 10:00 BP 132/76 04/04/21 10:00 Pulse Ox 96 04/04/21 10:00 Intake & Output 04/03/21 04/04/21 04/04/21 18:59 06:59 18:59 Output Total 400 1000 Balance -400 -1000 Output: Urine 400 1000 Uretheral (Gerardo) 400 Other: Voiding Method Indwelling Catheter Indwelling Catheter ABP, PAP, CO, CI - Last Documented Arterial Blood Pressure 114/75 - Labs CBC & Chem 7: 03/31/21 06:27 04/04/21 05:50 Labs: Abnormal Lab Results - Last 24 Hours (Table) 04/03/21 04/03/21 04/04/21 Range/Units 17:28 20:38 05:50 Chloride 110 H (96-109) mmol/L BUN 75.1 H (9.0-27.0) mg/dL Creatinine 2.2 H (0.6-1.5) mg/dL Est GFR (CKD-EPI)AfAm 34.2 L (60.0-200.0) Est GFR (CKD-EPI)NonAf 29.5 L (60.0-200.0) BUN/Creatinine Ratio 34.14 H (12.00-20.00) Ratio Glucose 169 H (70-110) mg/dL POC Glucose (mg/dL) 194 H 158 H (75-99) mg/dL Calcium 8.3 L (8.7-10.3) mg/dL 04/04/21 04/04/21 Range/Units 07:04 11:44 Chloride (96-109) mmol/L BUN (9.0-27.0) mg/dL Creatinine (0.6-1.5) mg/dL Est GFR (CKD-EPI)AfAm (60.0-200.0) Est GFR (CKD-EPI)NonAf (60.0-200.0) BUN/Creatinine Ratio (12.00-20.00) Ratio Glucose (70-110) mg/dL POC Glucose (mg/dL) 214 H 249 H (75-99) mg/dL Calcium (8.7-10.3) mg/dL Assessment and Plan Plan: Assessment: 1. Acute kidney injury secondary to ATN secondary to rhabdomyolysis. Renal function gradually improving. Creatinine 2.2 today. 2. Rhabdomyolysis secondary to fall and crush injury. CK levels improved. 3. Right forearm compartment syndrome status post fasciotomy and wound VAC placement. Underwent irrigation 04/02/21. 4. Hypokalemia from poor intake. Replaced. 5. Metabolic acidosis secondary to acute kidney injury and IV fluids. On oral bicarbonate. Improved. 6. Diabetes mellitus. 7. COVID-19 infection. 8. Hypernatremia from the oral water intake. Better. Plan: Maintain D5W at 60 mL an hour. Encouraged oral intake. Avoid nephrotoxins. Continue to monitor renal function and urine output.
--- NOTE | 2021-04-04 20:35 | P.PN ---
Subjective Progress Note Date: 04/04/21 Principal diagnosis: Right forearm compartment syndrome , covid 19 infection Patient is a 70-year-old male who was brought into the hospital after the patient was started between bed and nightstand for 2 days noticed to have compartment syndrome right forearm status post fasciotomy 3, patient was transferred to the ICU last night because of worsening hypotension. Patient was taken back to the OR 03/23/2021 and is status post debridement of devitalized tissue and reapplication of the wound VAC, and did have a washout and change of the wound VAC on 03/27/2021, 03/28/2021 and 04/02/2021 On today's evaluation, and that is 04/04/2021 the patient remains to be afeb rile, the patient is breathing comfortably and is currently on 2 L nasal cannula, the patient denies chest pain shortness of breath or cough , the patient denies nausea no vomiting or abdominal pain and no diarrhea, the patient pain to the right forearm is currently controlled Objective - Vital Signs Vital signs: Vital Signs Temp 97.8 F 04/04/21 10:00 Pulse 61 04/04/21 10:00 Resp 17 04/04/21 10:00 BP 132/76 04/04/21 10:00 Pulse Ox 96 04/04/21 10:00 Intake & Output 04/03/21 04/04/21 04/04/21 18:59 06:59 18:59 Output Total 400 1000 700 Balance -400 -1000 -700 Output: Urine 400 1000 700 Uretheral (Gerardo) 400 700 Other: Voiding Method Indwelling Catheter Indwelling Catheter ABP, PAP, CO, CI - Last Documented Arterial Blood Pressure 114/75 - Exam GENERAL DESCRIPTION:[ Patient is awake and alert in no distress] HEENT: [Oral mucosa is dry and no pharyngeal erythema] EYES : [No pallor or scleral icterus] RESPIRATORY SYSTEM: [Unlabored breathing decreased breath sounds at the base] CARDIA VASCULAR SYSTEM: [S1-S2 regular rate and rhythm no murmur] GI: [Abdominal soft there's no tenderness no organomegaly] EXTREMITIES: [Right forearm currently covered with a wound VAC there's no significant swelling no redness] - Labs CBC & Chem 7: 03/31/21 06:27 04/04/21 05:50 Labs: Abnormal Lab Results - Last 24 Hours (Table) 04/03/21 04/03/21 04/04/21 Range/Units 17:28 20:38 05:50 Chloride 110 H (96-109) mmol/L BUN 75.1 H (9.0-27.0) mg/dL Creatinine 2.2 H (0.6-1.5) mg/dL Est GFR (CKD-EPI)AfAm 34.2 L (60.0-200.0) Est GFR (CKD-EPI)NonAf 29.5 L (60.0-200.0) BUN/Creatinine Ratio 34.14 H (12.00-20.00) Ratio Glucose 169 H (70-110) mg/dL POC Glucose (mg/dL) 194 H 158 H (75-99) mg/dL Calcium 8.3 L (8.7-10.3) mg/dL 04/04/21 04/04/21 Range/Units 07:04 11:44 Chloride (96-109) mmol/L BUN (9.0-27.0) mg/dL Creatinine (0.6-1.5) mg/dL Est GFR (CKD-EPI)AfAm (60.0-200.0) Est GFR (CKD-EPI)NonAf (60.0-200.0) BUN/Creatinine Ratio (12.00-20.00) Ratio Glucose (70-110) mg/dL POC Glucose (mg/dL) 214 H 249 H (75-99) mg/dL Calcium (8.7-10.3) mg/dL Assessment and Plan (1) Compartment syndrome of forearm Status: Acute Priority: High Onset Date: ~03/21/21 Code(s): T79.A19A - TRAUMATIC COMPARTMENT SYNDROME OF UNSP UPPER EXTREMITY, INIT SNOMED Code(s): 328400464 (2) COVID-19 Status: Acute Code(s): U07.1 - COVID-19 SNOMED Code(s): 875902138 Plan: Patient with right forearm compartment syndrome traumatic in this patient with status post fasciotomy and wound VAC application , patient is afebrile and his white count is normal, blood culture has been negative, no local cultures , patient is currently covered with cefazolin the patient will finish therapy with oral Keflex 7 days on discharge and close outpatient follow-up 2-patient did have a positive covid test, no significant respiratory symptoms and the patient patient's symptom has been going on for almost 2 weeks now as the patient was not symptomatic from his covid , 10 days of isolation should be more than enough, and will not require any isolation no discharge Time with Patient: Less than 30
== END 2021-04-04 15:25 | DRG 907 ==
LOC: EC 12:31 → 2SICU 14:50 → 3SCARD 15:41 → 2SICU 03-22 18:41 → 4SSUR 03-27 15:20
PROVIDERS: ADMIT Internal Medicine Geriatric Medicine; ATTEND Internal Medicine Geriatric Medicine
PROC: 8E0ZXY6 Isolation (ICD-10-PCS; 2021-03-21)
PROC: 0KB90ZZ Excision of Right Lower Arm and Wrist Muscle, Open Approach (ICD-10-PCS; 2021-03-21)
PROC: 0KN90ZZ Release Right Lower Arm and Wrist Muscle, Open Approach (ICD-10-PCS; principal; 2021-03-21 15:15)
PROC: 03HY32Z Insertion of Monitoring Device into Upper Artery, Percutaneous Approach (ICD-10-PCS; 2021-03-22)
PROC: 4A133B1 Monitoring of Arterial Pressure, Peripheral, Percutaneous Approach (ICD-10-PCS; 2021-03-22)
PROC: 4A133J1 Monitoring of Arterial Pulse, Peripheral, Percutaneous Approach (ICD-10-PCS; 2021-03-22)
PROC: 06HM33Z Insertion of Infusion Device into Right Femoral Vein, Percutaneous Approach (ICD-10-PCS; 2021-03-22)
PROC: 05HF33Z Insertion of Infusion Device into Left Cephalic Vein, Percutaneous Approach (ICD-10-PCS; 2021-03-27)
DX: T79.A11A Traumatic compartment syndrome of right upper extremity, initial encounter (principal); A41.9 Sepsis, unspecified organism; G92.8 Other toxic encephalopathy; N17.0 Acute kidney failure with tubular necrosis; U07.1 COVID-19; E87.0 Hyperosmolality and hypernatremia; E87.2 Acidosis; G61.0 Guillain-Barre syndrome; G91.2 (Idiopathic) normal pressure hydrocephalus; J98.11 Atelectasis; S42.001A Fracture of unspecified part of right clavicle, initial encounter for closed fracture; E03.9 Hypothyroidism, unspecified; E11.65 Type 2 diabetes mellitus with hyperglycemia; E11.42 Type 2 diabetes mellitus with diabetic polyneuropathy; E55.9 Vitamin D deficiency, unspecified; E66.9 Obesity, unspecified; E83.39 Other disorders of phosphorus metabolism; E83.51 Hypocalcemia; E86.1 Hypovolemia; E87.5 Hyperkalemia; E87.70 Fluid overload, unspecified; G20 Parkinson's disease; G47.30 Sleep apnea, unspecified; G83.21 Monoplegia of upper limb affecting right dominant side; G54.0 Brachial plexus disorders; L98.492 Non-pressure chronic ulcer of skin of other sites with fat layer exposed; M48.02 Spinal stenosis, cervical region; M50.30 Other cervical disc degeneration, unspecified cervical region; Z87.440 Personal history of urinary (tract) infections; R29.6 Repeated falls; W06.XXXA Fall from bed, initial encounter; W23.0XXA Caught, crushed, jammed, or pinched between moving objects, initial encounter; N40.0 Benign prostatic hyperplasia without lower urinary tract symptoms; S30.1XXA Contusion of abdominal wall, initial encounter; T79.6XXA Traumatic ischemia of muscle, initial encounter; Z78.9 Other specified health status; Z79.4 Long term (current) use of insulin; Z79.82 Long term (current) use of aspirin; Z79.84 Long term (current) use of oral hypoglycemic drugs; Z79.890 Hormone replacement therapy; Z79.899 Other long term (current) drug therapy; I10 Essential (primary) hypertension; Z88.2 Allergy status to sulfonamides; I95.9 Hypotension, unspecified
CPT/HCPCS: 36410; 36415; 70450; 70496; 70498; 71045; 71046; 71550; 72125; 72141; 76770; 76937; 80048; 80053; 80061; 81001; 82140; 82306; 82330; 82550; 82805; 83036; 83605; 83615; 83735; 84100; 84132; 84145; 84484; 85025; 85027; 85379; 85610; 85730; 86140; 86704; 86706; 86850; 86900; 86901; 87040; 87077; 87086; 87186; 87340; 87635; 93005; 94760; 96360; 99285

== ENCOUNTER → 2021-09-25 | Outpatient (CLI) | payer MEDICARE, OTHER ==
[2021-09-25 14:36] LABS: African American GFR (CKD) >90 (>60 ml/min/1.73 sqM); Blood Urea Nitrogen 23 mg/dL (9-20); Non-African American GFR(CKD) 79 (>60 ml/min/1.73 sqM)
--- NOTE | 2021-09-25 16:49 | CT ---
EXAMINATION TYPE: CT urogram wo/w con CT DLP: 4894.70 mGycm, Automated exposure control for dose reduction was used. DATE OF EXAM: 09/25/2021 4:03 PM COMPARISON: None. CLINICAL INDICATION:Male, 71 years old with history of N39.9 UTI; PHH, UTI x 1year TECHNIQUE: Urogram with unenhanced, nephrographic and excretory phase imaging of the abdomen and pelvis using 10 0 cc of IV contrast Isovue 300 contrast. Coronal and sagittal reformats were performed. One or more C T dose reduction strategies were utilized during this examination. 2D and 3D reconstructions are perf ormed to assist visualization of the urinary tract on a separate workstation. FINDINGS: GENITOURINARY: RIGHT KIDNEY AND URETER: No calculi. No hydronephrosis or hydroureter. No renal mass or other lesions . The distal ureter is poorly visualized. No urothelial lesions: no filling defect, dilation, strictu re or wall thickening. LEFT KIDNEY AND URETER: 3 mm nonobstructive left renal calculus. No hydronephrosis or hydroureter. No renal mass or other lesions. The distal ureter is poorly visualized. No urothelial lesions: no filli ng defect, dilation, stricture or wall thickening. URINARY BLADDER: Normal, no calculi, mass or other lesions. REPRODUCTIVE: Prostate calcifications noted. Mildly prominent prostate measuring 4.3 cm in transverse dimension. This indents upon the urinary bladder base. Seminal vesicles are symmetric. ABDOMEN LIVER: Unremarkable. GALLBLADDER AND BILE DUCTS: Unremarkable PANCREAS: Unremarkable. SPLEEN: Unremarkable. ADRENAL GLANDS: Unremarkable. STOMACH AND BOWEL: No focal wall thickening or surrounding inflammatory changes. Colonic diverticulos is without evidence for acute diverticulitis. Postsurgical changes from appendectomy. No evidence of bowel obstruction. PERITONEUM: No evidence of pneumoperitoneum, free fluid, or adenopathy. VASCULATURE: Mild atherosclerotic calcification of the aorta and its branches. No abdominal aortic an eurysm. MUSCULOSKELETAL: Multilevel degenerative changes are present throughout the thoracolumbar spine. No s pondylolisthesis. Straightening of the lumbar spine. Right L5 pars defect. No concerning osseous lesi on. SOFT TISSUE/ABDOMINAL WALL: Unremarkable. LOWER CHEST: Mild cardiomegaly. Coronary artery calcifications. Small hiatal hernia. IMPRESSION: 1. No evidence of urolithiasis or renal/urothelial neoplasm. 2. Nonobstructive 3 mm left renal calculus. 3. Colonic diverticulosis without evidence for acute diverticulitis.
== END | disposition home or self-care (01) ==
LOC: RADCTMAIN 13:41
PROVIDERS: ATTEND Urology
DX: N20.0 Calculus of kidney (principal); K57.30 Diverticulosis of large intestine without perforation or abscess without bleeding
CPT/HCPCS: 82565; 84520; 74178; 36415; 74400; Q9967

== ENCOUNTER → 2021-12-17 | Outpatient (CLI) | payer OTHER, MEDICARE ==
--- NOTE | 2021-12-17 13:49 | XR ---
EXAMINATION TYPE: XR chest 2V DATE OF EXAM: 12/17/2021 COMPARISON: Prior chest x-ray August 25, 2021 HISTORY: Presurgical study. TECHNIQUE: Frontal and lateral views of the chest are obtained. FINDINGS: There is no focal air space opacity, pleural effusion, or pneumothorax seen. The cardiac silhouette size is stable and mildly enlarged. The osseous structures are intact. IMPRESSION: Mild cardiomegaly without acute pulmonary process.
== END | disposition home or self-care (01) ==
LOC: RADXRMAIN 13:14
PROVIDERS: ATTEND Neurological Surgery
DX: S14.3XXD Injury of brachial plexus, subsequent encounter (principal); I51.7 Cardiomegaly
CPT/HCPCS: 71046

== ENCOUNTER 2022-07-23 13:18 | Inpatient (IN) | payer MEDICARE, OTHER ==
[2022-07-23] MEDS ORDERED: ACETAMINOPHEN IV (For NPO) 1,000 MG in EMPTY BAG 1 BAG IVPB STA (13:27)
--- NOTE | 2022-07-23 13:32 | ED ---
General Adult HPI - General Chief complaint: Neuro Symptoms/Deficit Stated complaint: CVA Time Seen by Provider: 07/23/22 13:19 Source: patient, EMS, RN notes reviewed Mode of arrival: EMS Limitations: altered mental status, physical limitation - History of Present Illness Initial comments: Patient is a pleasant 72-year-old male presenting to the emergency department by EMS for altered mental status. Last known well was approximately 9 AM. Patient is a poor historian and does not provide any history. EMS did notice fever. They also noticed right sided weakness. 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 Prior chart review reveals previous right upper extremity compartment syndrome. Patient provides no additional history other than his name. - Related Data Home Medications Medication Instructions Recorded Confirmed Aspirin EC [Ecotrin Low Dose] 81 mg PO DAILY 10/01/20 07/23/22 Carbidopa-Levodopa 25-100 mg 2 tab PO TID 10/01/20 07/23/22 [Sinemet 25-100 mg] Levothyroxine Sodium [Synthroid] 150 mcg PO DAILY 10/01/20 07/23/22 Tamsulosin HCl [Flomax] 0.4 mg PO DAILY 10/01/20 07/23/22 Albuterol Inhaler [Ventolin Hfa 2 puff INHALATION RT-Q6H PRN 07/23/22 07/23/22 Inhaler] Cephalexin [Keflex] 250 mg PO DAILY 07/23/22 07/23/22 Cholecalciferol [Vitamin D3 (25 50 mcg PO DAILY 07/23/22 07/23/22 Mcg = 1000 Iu)] Cranberry 450mg 450 mg PO DAILY 07/23/22 07/23/22 Cyanocobalamin [Vitamin B-12] 500 mcg PO DAILY 07/23/22 07/23/22 Elderberry Fruit [Elderberry] 350 mg PO DAILY 07/23/22 07/23/22 Empagliflozin [Jardiance] 10 mg PO DAILY 07/23/22 07/23/22 Fish Oil/Dha/Epa [Fish Oil 1,200 1 cap PO BID 07/23/22 07/23/22 mg Fish Oil] Glucosam/Jamar-Msm1/C/Yonas/Bosw 1 tab PO BID 07/23/22 07/23/22 [Ouxanzrchfq-Cxrcekwwjpp-WWW Tb] Magnesium Citrate and Oxide 250 mg PO DAILY 07/23/22 07/23/22 [Magnesium] Melatonin 10 mg PO HS 07/23/22 07/23/22 Nystatin 100,000 Unit/gm Powd 1 applic TOPICAL BID PRN 07/23/22 07/23/22 [Mycostatin Powder] Omeprazole 40 mg PO DAILY 07/23/22 07/23/22 Previous Rx's Medication Instructions Recorded Ascorbic Acid [Vitamin C] 1,000 mg PO DAILY tab 04/03/21 Pregabalin [Lyrica] 150 mg PO TID #9 cap 04/03/21 Allergies Allergy/AdvReac Type Severity Reaction Status Date / Time Sulfa (Sulfonamide Allergy Unknown Verified 03/21/21 15:47 Antibiotics) Review of Systems ROS Statement: Those systems with pertinent positive or pertinent negative responses have been documented in the HPI. ROS Other: All systems not noted in ROS Statement are negative. Limitations: ROS unobtainable due to patients medical condition Constitutional: Reports: as per HPI, fever Past Medical History Past Medical History: Diabetes Mellitus Additional Past Medical History / Comment(s): guillian-barre syndrome, parkinsons, rt. shoulder rotator cuff repair, lasic eye surgery, L4-L5 laporoscopy History of Any Multi-Drug Resistant Organisms: ESBL Date of last positivie culture/infection: 10/02/21 MDRO Source:: URINE ESBL Past Surgical History: Back Surgery Past Psychological History: No Psychological Hx Reported Smoking Status: Never smoker Past Alcohol Use History: None Reported Past Drug Use History: None Reported General Exam Limitations: altered mental status General appearance: lethargic Head exam: Present: atraumatic Eye exam: Present: normal appearance, PERRL, EOMI ENT exam: Present: mucous membranes dry Neck exam: Present: normal inspection. Absent: tenderness, meningismus Respiratory exam: Present: normal lung sounds bilaterally Cardiovascular Exam: Present: tachycardia GI/Abdominal exam: Present: soft. Absent: tenderness Extremities exam: Present: normal inspection. Absent: tenderness Neurological exam: Present: altered Expanded Neurological exam: Present: protecting the airway Patient oriented to: Present: person. Absent: place, time Cranial nerves: EOM's Intact: Normal Motor strength exam: RUE: 2/1, LUE: 5, RLE: 0, LLE: 0 Eye Response: (3) open to voice Motor Response: (6) obeys commands Verbal Response: (3) inappropriate words Psychiatric exam: Present: other (Limited communication) Skin exam: Present: normal color Course Vital Signs 07/23/22 07/23/22 07/23/22 13:20 13:58 14:15 Temperature 101.3 F H Pulse Rate 115 H 112 H 109 H Respiratory 22 18 18 Rate Blood Pressure 103/67 82/57 80/53 Blood Pressure [Right Arm] O2 Sat by Pulse 99 98 97 Oximetry 07/23/22 07/23/22 07/23/22 14:30 14:45 15:00 Temperature 101.8 F H Pulse Rate 113 H 117 H 121 H Respiratory 19 19 16 Rate Blood Pressure 76/53 76/53 77/52 Blood Pressure [Right Arm] O2 Sat by Pulse 97 96 95 Oximetry 07/23/22 07/23/22 15:15 17:09 Temperature Pulse Rate 123 H Respiratory 21 Rate Blood Pressure 101/68 Blood Pressure 67/50 [Right Arm] O2 Sat by Pulse 95 Oximetry - Reevaluation(s) Reevaluation #1: 07/23/22 13:28 Last known well is 9 AM. Closed stroke is not called secondary to last known well is 4 and half hours ago and patient is not a candidate for TPA secondary to risks outweighing the benefits. In addition patient does have fever and can't breathe history which could account for weakness. Patient also has history of previous compartment syndrome on the right which could also contribute to weakness 07/23/22 17:42 Concern for septic shock at 1445. Blood culture and lactic acid and IV fluid bolus have all been ordered. Patient remains hypotensive. Place. Levothroid ordered. Patient reevaluated. EKG Findings - EKG Results: EKG: interpreted by ERMD (Inferior Q waves.), sinus rhythm, normal axis, normal ST/T EKG shows: tachycardia Procedures - Central Line Placement Right Femoral Consent Obtained: verbal consent, emergent situation Patient Placed on Monitor/Pulse Ox: Yes Prep: mask, gown, gloves Central Line Prep: Chlorhexidine scrub Local Anesthesia Used: Lidocaine 1% Ultrasound Used for Placement: No Central Line Lumen Inserted: triple Central Line Position: good blood return, all ports aspirated, flushed, capped, sutured in place with 3-0 nylon Dressing Applied: Tegaderm Patient Tolerated Procedure: well Complications: none - Sepsis Sepsis Focused Exam #1 Time Sepsis Criteria Met: 14:45 Sepsis Focused Exam Date: 07/23/22 Sepsis Focused Exam Time: 17:43 Sepsis Focused Exam Complete: Yes Vital Signs & RN Notes Reviewed: Yes Capillary Refill: < 2 Seconds: Fingers, Toes Peripheral Pulses: Normal: Radial (R), Radial (L) Skin Color: Normal for Patient Respiratory Exam: normal lung sounds Cardiovascular Exam: tachycardia Medical Decision Making - Medical Decision Making Was pt. sent in by a medical professional or institution (, PA, CASTING TESTER, urgent care, hospital, or assisted...) When possible be specific @ -No Did you speak to anyone other than the patient for history (EMS, parent, family, police, friend...)? What history was obtained from this source @ -Lunchroom Mother and son-in-law present and helps provide history as patient is a poor historian Did you review nursing and triage notes (agree or disagree)? Why? @ -I reviewed and agree with nursing and triage notes Were old charts reviewed (outside hosp., previous admission, EMS record, old EKG, old radiological studies, urgent care reports/EKG's, assisted records)? Report findings @ -No old charts were reviewed Differential Diagnosis (chest pain, altered mental status, abdominal pain women, abdominal pain men, vaginal bleeding, weakness, fever, dyspnea, syncope, headache, dizziness, GI bleed, back pain, seizure, CVA, palpatations, mental health)? @ -Differential Altered Mental Status: Hypoglycemia, DKA, hypercapnia, ETOH, overdose, CO poisoning, trauma, myxedema coma, HTN encephalopathy, infection, encephalitis, psychosis, intercranial hemorrhage, hepatic encephalopathy, meningitis, CVA, this is not meant to be an all-inclusive list EKG interpreted by me (3pts min.). @ -As above X-rays interpreted by me (1pt min.). @ -Chest x-ray shows right lower lobe infiltrate CT interpreted by me (1pt min.). @ -None done U/S interpreted by me (1pt. min.). @ -None done What testing was considered but not performed or refused? (CT, X-rays, U/S, labs)? Why? @ -None What meds were considered but not given or refused? Why? @ -None Did you discuss the management of the patient with other professionals (professionals i.e. DrZhao, PA, CASTING TESTER, lab, RT, psych nurse, social science analyst, edge blacker, teacher, plant protection officer, egg caser)? Give summary @ -Case discussed with Dr. Pavon, who will admit covering for Dr. Pennington. Case also discussed with Dr. Alcantar, who will consult for critical care and agrees with ICU admission Was smoking cessation discussed for >3mins.? @ -No Was critical care preformed (if so, how long)? @ -35 minutes crit care time Were there social determinants of health that impacted care today? How? (Homelessness, low income, unemployed, alcoholism, drug addiction, transportation, low edu. Level, literacy, decrease access to med. care, fci, rehab)? @ -No Was there de-escalation of care discussed even if they declined (Discuss DNR or withdrawal of care, Hospice)? DNR status @ -No What co-morbidities impacted this encounter? (DM, HTN, Smoking, COPD, CAD, Cancer, CVA, ARF, Chemo, Hep., AIDS, mental health diagnosis, sleep apnea, morbid obesity)? @ -None Was patient admitted / discharged? Hospital course, mention meds given and route, prescriptions, significant lab abnormalities, going to OR and other pertinent info. @ -Patient meets criteria for septic shock. Pneumonia and UTI. IV and back started. Patient will be admitted to ICU Undiagnosed new problem with uncertain prognosis? @ -No Drug Therapy requiring intensive monitoring for toxicity (Heparin, Nitro, Insulin, Cardizem)? @ -Patient started on Levaquin drip that will need monitoring Were any procedures done? @ -Sepsis reevaluation. Central line placement Diagnosis/symptom? @ -Septic shock, pneumonia, UTI Acute, or Chronic, or Acute on Chronic? @ -Acute, acute, acute Uncomplicated (without systemic symptoms) or Complicated (systemic symptoms)? @ -default Side effects of treatment? @ -No Exacerbation, Progression, or Severe Exacerbation? @ -No Poses a threat to life or bodily function? How? (Chest pain, [place], [place], pneumonia, PE, COPD, DKA, ARF, appy, cholecystitis, CVA, Diverticulitis, Homicidal, Suicidal, threat to staff... and all critical care pts) @ -No - Lab Data Result diagrams: 07/23/22 13:30 07/23/22 13:30 Lab Results 07/23/22 07/23/22 07/23/22 Range/Units 13:24 13:30 13:30 WBC 6.8 (3.8-10.6) k/uL RBC 5.06 (4.30-5.90) m/uL Hgb 14.3 (13.0-17.5) gm/dL Hct 44.4 (39.0-53.0) % MCV 87.6 (80.0-100.0) fL MCH 28.2 (25.0-35.0) pg MCHC 32.2 (31.0-37.0) g/dL RDW 14.8 (11.5-15.5) % Plt Count 151 (150-450) k/uL MPV 8.9 Neutrophils % (Manual) 86 % Band Neuts % (Manual) 12 % Lymphocytes % (Manual) 2 % Basophils % (Manual) 1 % Metamyelocytes % 1 % Neutrophils # (Manual) 6.60 (1.3-7.7) k/uL Lymphocytes # (Manual) 0.14 L (1.0-4.8) k/uL Basophils # (Manual) 0.07 (0-0.2) k/uL Metamyelocytes # (Man) 0.07 H (0) k/uL Nucleated RBCs 0 (0-0) /100 WBC Manual Slide Review Performed PT 11.6 (9.0-12.0) sec INR 1.1 (<1.2) APTT 22.7 (22.0-30.0) sec Sodium (137-145) mmol/L Potassium (3.5-5.1) mmol/L Chloride (98-107) mmol/L Carbon Dioxide (22-30) mmol/L Anion Gap mmol/L BUN (9-20) mg/dL Creatinine (0.66-1.25) mg/dL Est GFR (CKD-EPI)AfAm (>60 ml/min/1.73 sqM) Est GFR (CKD-EPI)NonAf (>60 ml/min/1.73 sqM) Glucose (74-99) mg/dL Lactic Ac Sepsis Rflx Plasma Lactic Acid Be (0.7-2.0) mmol/L Calcium (8.4-10.2) mg/dL Total Bilirubin (0.2-1.3) mg/dL AST (17-59) U/L ALT (4-49) U/L Alkaline Phosphatase (38-126) U/L Total Protein (6.3-8.2) g/dL Albumin (3.5-5.0) g/dL Urine Color Urine Appearance (Clear) Urine pH (5.0-8.0) Ur Specific [place] (1.001-1.035) Urine Protein (Negative) Urine Glucose (UA) (Negative) Urine Ketones (Negative) Urine Blood (Negative) Urine Nitrite (Negative) Urine Bilirubin (Negative) Urine Urobilinogen (<2.0) mg/dL Ur Leukocyte Esterase (Negative) Urine RBC (0-5) /hpf Urine WBC (0-5) /hpf Urine WBC Clumps (None) /hpf Urine Bacteria (None) /hpf Hyaline Casts (0-2) /lpf Urine Mucus (None) /hpf Influenza Type A (PCR) Not Detected (Not Detectd) Influenza Type B (PCR) Not Detected (Not Detectd) RSV (PCR) Not Detected (Not Detectd) SARS-CoV-2 (PCR) Not Detected (Not Detectd) 07/23/22 07/23/22 07/23/22 Range/Units 13:30 13:30 13:30 WBC (3.8-10.6) k/uL RBC (4.30-5.90) m/uL Hgb (13.0-17.5) gm/dL Hct (39.0-53.0) % MCV (80.0-100.0) fL MCH (25.0-35.0) pg MCHC (31.0-37.0) g/dL RDW (11.5-15.5) % Plt Count (150-450) k/uL MPV Neutrophils % (Manual) % Band Neuts % (Manual) % Lymphocytes % (Manual) % Basophils % (Manual) % Metamyelocytes % % Neutrophils # (Manual) (1.3-7.7) k/uL Lymphocytes # (Manual) (1.0-4.8) k/uL Basophils # (Manual) (0-0.2) k/uL Metamyelocytes # (Man) (0) k/uL Nucleated RBCs (0-0) /100 WBC Manual Slide Review PT (9.0-12.0) sec INR (<1.2) APTT (22.0-30.0) sec Sodium 139 (137-145) mmol/L Potassium 3.8 (3.5-5.1) mmol/L Chloride 107 (98-107) mmol/L Carbon Dioxide 22 (22-30) mmol/L Anion Gap 10 mmol/L BUN 25 H (9-20) mg/dL Creatinine 1.21 (0.66-1.25) mg/dL Est GFR (CKD-EPI)AfAm 69 (>60 ml/min/1.73 sqM) Est GFR (CKD-EPI)NonAf 60 (>60 ml/min/1.73 sqM) Glucose 158 H (74-99) mg/dL Lactic Ac Sepsis Rflx Plasma Lactic Acid Be 4.6 H* (0.7-2.0) mmol/L Calcium 9.6 (8.4-10.2) mg/dL Total Bilirubin 0.8 (0.2-1.3) mg/dL AST 25 (17-59) U/L ALT 19 (4-49) U/L Alkaline Phosphatase 123 (38-126) U/L Total Protein 6.0 L (6.3-8.2) g/dL Albumin 3.3 L (3.5-5.0) g/dL Urine Color Yellow Urine Appearance Cloudy (Clear) Urine pH 5.5 (5.0-8.0) Ur Specific [place] 1.019 (1.001-1.035) Urine Protein 1+ H (Negative) Urine Glucose (UA) 4+ H (Negative) Urine Ketones Trace H (Negative) Urine Blood Large H (Negative) Urine Nitrite Negative (Negative) Urine Bilirubin Negative (Negative) Urine Urobilinogen <2.0 (<2.0) mg/dL Ur Leukocyte Esterase Large H (Negative) Urine RBC 37 H (0-5) /hpf Urine WBC 167 H (0-5) /hpf Urine WBC Clumps Occasional H (None) /hpf Urine Bacteria Many H (None) /hpf Hyaline Casts 1 (0-2) /lpf Urine Mucus Occasional H (None) /hpf Influenza Type A (PCR) (Not Detectd) Influenza Type B (PCR) (Not Detectd) RSV (PCR) (Not Detectd) SARS-CoV-2 (PCR) (Not Detectd) 07/23/22 Range/Units 14:09 WBC (3.8-10.6) k/uL RBC (4.30-5.90) m/uL Hgb (13.0-17.5) gm/dL Hct (39.0-53.0) % MCV (80.0-100.0) fL MCH (25.0-35.0) pg MCHC (31.0-37.0) g/dL RDW (11.5-15.5) % Plt Count (150-450) k/uL MPV Neutrophils % (Manual) % Band Neuts % (Manual) % Lymphocytes % (Manual) % Basophils % (Manual) % Metamyelocytes % % Neutrophils # (Manual) (1.3-7.7) k/uL Lymphocytes # (Manual) (1.0-4.8) k/uL Basophils # (Manual) (0-0.2) k/uL Metamyelocytes # (Man) (0) k/uL Nucleated RBCs (0-0) /100 WBC Manual Slide Review PT (9.0-12.0) sec INR (<1.2) APTT (22.0-30.0) sec Sodium (137-145) mmol/L Potassium (3.5-5.1) mmol/L Chloride (98-107) mmol/L Carbon Dioxide (22-30) mmol/L Anion Gap mmol/L BUN (9-20) mg/dL Creatinine (0.66-1.25) mg/dL Est GFR (CKD-EPI)AfAm (>60 ml/min/1.73 sqM) Est GFR (CKD-EPI)NonAf (>60 ml/min/1.73 sqM) Glucose (74-99) mg/dL Lactic Ac Sepsis Rflx Y Plasma Lactic Acid Be (0.7-2.0) mmol/L Calcium (8.4-10.2) mg/dL Total Bilirubin (0.2-1.3) mg/dL AST (17-59) U/L ALT (4-49) U/L Alkaline Phosphatase (38-126) U/L Total Protein (6.3-8.2) g/dL Albumin (3.5-5.0) g/dL Urine Color Urine Appearance (Clear) Urine pH (5.0-8.0) Ur Specific [place] (1.001-1.035) Urine Protein (Negative) Urine Glucose (UA) (Negative) Urine Ketones (Negative) Urine Blood (Negative) Urine Nitrite (Negative) Urine Bilirubin (Negative) Urine Urobilinogen (<2.0) mg/dL Ur Leukocyte Esterase (Negative) Urine RBC (0-5) /hpf Urine WBC (0-5) /hpf Urine WBC Clumps (None) /hpf Urine Bacteria (None) /hpf Hyaline Casts (0-2) /lpf Urine Mucus (None) /hpf Influenza Type A (PCR) (Not Detectd) Influenza Type B (PCR) (Not Detectd) RSV (PCR) (Not Detectd) SARS-CoV-2 (PCR) (Not Detectd) Critical Care Time Critical Care Time: Yes Total Critical Care Time: 35 Disposition Clinical Impression: Septic shock, Pneumonia, UTI (urinary tract infection) Disposition: ADMITTED IP TO THIS [facility] Condition: Serious Is patient prescribed a controlled substance at d/c from ED?: No Referrals: Guru Pennington MD [Primary Care Provider] - 1-2 days Time of Disposition: 17:44
[2022-07-23] MEDS: SODIUM CHLORIDE 0.9% 1,000 ML IV SCH ×2 (13:34→21:50)
[2022-07-23 13:42] LABS: HCT 44.4 % (39.0-53.0); HGB 14.3 gm/dL (13.0-17.5); MCH 28.2 pg (25.0-35.0); MCHC 32.2 g/dL (31.0-37.0); MCV 87.6 fL (80.0-100.0); Mean Platelet Volume 8.9; Platelet Count 151 k/uL (150-450); RBC 5.06 m/uL (4.30-5.90); RDW 14.8 % (11.5-15.5); WBC 6.8 k/uL (3.8-10.6)
[2022-07-23 13:51] LABS: Albumin 3.3 g/dL (3.5-5.0); Calcium 9.6 mg/dL (8.4-10.2); Potassium 3.8 mmol/L (3.5-5.1); Total Bilirubin 0.8 mg/dL (0.2-1.3)
[2022-07-23 14:07] LABS: INR 1.1 (<1.2); Partial Thromboplastin Time 22.7 sec (22.0-30.0); Prothrombin Time 11.6 sec (9.0-12.0)
--- NOTE | 2022-07-23 14:08 | CT ---
EXAMINATION TYPE: CT brain wo con CT DLP: 1158.4 mGycm, Automated exposure control for dose reduction was used. DATE OF EXAM: 07/23/2022 1:51 PM COMPARISON: CT 03/21/2021. CLINICAL INDICATION:Male, 72 years old with history of ams, TECHNIQUE: Brain: Axial CT images of the brain were obtained with coronal and sagittal reformats created and rev iewed. Contrast used: None. Oral contrast used: None. FINDINGS: Brain: Extra-axial spaces: No abnormal extra-axial fluid collections. Ventricular system: Dilatation in proportion to cerebral atrophy. Cerebral parenchyma: Cerebral atrophy. No acute intraparenchymal hemorrhage or mass effect. The harmon -white junction is well differentiated. Scattered hypoattenuating areas are seen within the white mat ter. Cerebellum: Unremarkable. Mass effect: No evidence of midline shift. Intracranial vasculature: unremarkable Soft tissues: Normal. Calvarium/osseous structures: No depressed skull fracture. Paranasal sinuses and mastoid air cells: Mild scattered paranasal sinus disease. Visualized orbits: Orbital contents are intact. IMPRESSION: 1. No acute intracranial process. 2. Nonspecific white matter changes, likely secondary to chronic small vessel ischemic disease.
--- NOTE | 2022-07-23 14:41 | XR ---
EXAMINATION TYPE: XR chest 1V portable DATE OF EXAM: 07/23/2022 2:24 PM COMPARISON: Chest radiographs from 12/17/2021 TECHNIQUE: XR chest 1V portable Frontal view of the chest. CLINICAL INDICATION:Male, 72 years old with history of Fever; FINDINGS: Lungs/Pleura: Low lung volumes are present. Right lower lobe airspace opacities which could represent vasculature versus airspace disease. There is no evidence of pleural effusion, focal consolidation, or pneumothorax. Pulmonary vascularity: Unremarkable. Heart/mediastinum: Cardiomediastinal silhouette is unremarkable. Musculoskeletal: No acute osseous pathology. IMPRESSION: Right lower lobe airspace opacities which could represent summation of vasculature correlate for pneu monia. Consider follow-up.
[2022-07-23 14:43] LABS: Band Neutrophils % 12 %; Basophils # (M) 0.07 k/uL (0-0.2); Lymphocytes # (M) 0.14 k/uL (1.0-4.8); Metamyelocytes # (M) 0.07 k/uL (0); Metamyelocytes % 1 %; Neutrophils % (M) 86 %; Nucleated Red Blood Cells 0 /100 WBC (0-0); Total Cells Counted 200
[2022-07-23 14:46] LABS: Appearance,Urine Cloudy (Clear); Bacteria,Urine Many /hpf; Bilirubin,Urine Negative (Negative); Blood,Urine Large (Negative); Color,Urine Yellow; Glucose,Urine (UA) 4+ (Negative); Hyaline Casts,Urine 1 /lpf (0-2); Ketones,Urine Trace (Negative); Leukocyte Esterase,Urine Large (Negative); Mucus,Urine Occasional /hpf; Nitrite,Urine Negative (Negative); PH, Urine 5.5 (5.0-8.0); Protein,Urine 1+ (Negative); RBC,Urine 37 /hpf (0-5); Specific Gravity,Urine 1.019 (1.001-1.035); Urobilinogen,Urine <2.0 mg/dL (<2.0); WBC,Urine 167 /hpf (0-5)
[2022-07-23] MEDS ORDERED: SODIUM CHLORIDE 0.9% 2,000 ML IV STA (14:46)
[2022-07-23] MEDS ORDERED: SODIUM CHLORIDE 0.9% 1,000 ML IV STA (14:46)
[2022-07-23] MEDS ORDERED: NOREPINEPHRINE 32 MG in SODIUM CHLORIDE 0.9% 218 ML IV ONE (17:35)
[2022-07-23] MEDS ORDERED: IPRATROPIUM-ALBUTEROL 3 ML NEB INHALATION PRN (17:48)
[2022-07-23] MEDS ORDERED: PNEUMONIA PROTOCOL UTILIZED 1 EACH MISC PO PRN (17:48)
[2022-07-23] MEDS ORDERED: AZITHROMYCIN 500 MG in SODIUM CHLORIDE 0.9% 250 ML IVPB STA (17:48)
[2022-07-23] MEDS ORDERED: ACETAMINOPHEN IV (For NPO) 1,000 MG in EMPTY BAG 1 BAG IVPB ONE (19:19)
[2022-07-23] MEDS ORDERED: SODIUM CHLORIDE 0.9% 1,000 ML IV ONE (22:52)
[2022-07-23] MEDS: VASOPRESSIN 60 UNIT in SODIUM CHLORIDE 0.9% 150 ML IV SCH (23:25)
[2022-07-24 00:15] LABS: Glucose,Whole Blood 115 mg/dL (70-110)
[2022-07-24] MEDS ORDERED: DEXTROSE 50% SYRINGE 50 ML IVP PRN ×2 (01:07)
[2022-07-24] MEDS ORDERED: ACETAMINOPHEN TAB 325 MG TAB PO PRN (01:07)
[2022-07-24] MEDS ORDERED: NALOXONE 0.4 MG/ML 1 ML VIAL IV PRN (01:52)
--- NOTE | 2022-07-24 02:09 | P.CNPUL ---
History of Present Illness Consult date: 07/24/22 Requesting physician: Evangelist Myles Reason for consult: other (ICU management) Chief complaint: Altered mental status History of present illness: I'm seeing this patient in consultation today 07/24/2022 in the emergency room for suspected abscess and septic shock. Patient is a 72-year-old white male who suffers from frequent UTIs with previous ESBL producing organisms. Patient does reportedly follow-up with urologist, and is on chronic Keflex. He also has a history of BPH, Parkinson's, diabetes mellitus type 2, and gullian-barre syndrome. Patient apparently presented to the emergency room yesterday afternoon via EMS for altered mental status. The patient himself is a poor historian. He is confused and falls back asleep without verbal stimulation. Apparently, the patient's last known well time was 9 AM yesterday morning. A noncontrast brain CT ruled out any acute intracranial process. Chest x-ray showed right lower lobe airspace opacities which could represent summation of vasculature versus pneumonia. Urinalysis shows evidence of UTI. Lactic acid level 5.2 and is down to 4 after fluid resuscitation with a total of 3 L normal saline. Patient was still hypotensive after fluid resuscitation, and was started on norepinephrine which is currently infusing at 0.2 mcg/kg/m through a right IJ triple-lumen central line catheter. Patient's blood pressure is currently 73/48 mmhg. He is currently lying in bed, on 3L nasal cannula, oxygenating at 94%. CBC on arrival shows a WBC count of 6.8, hemoglobin 14.3, hematocrit 44.4, platelets 151,000. BMP shows a sodium 139, potassium 3.8, chloride 107, serum CO2 22, BUN 25, creatinine 1.1, glucose 158. Normal saline is infusing at 130 ml/hr. Appears to be making good urine output. Blood and urine cultures are pending. Currently empirically covered on azithromycin and Rocephin. Negative for influenza, RSV, COVID-19. He is febrile with a T-max of 101.8F. Patient will be transferred to the intensive care unit once bed [facility]. Review of Systems ROS unobtainable: due to mental status Past Medical History Past Medical History: Diabetes Mellitus Additional Past Medical History / Comment(s): Frequent UTIs, guillian-barre syndrome, parkinsons, rt. shoulder rotator cuff repair, lasic eye surgery, L4-L5 laporoscopy History of Any Multi-Drug Resistant Organisms: ESBL Date of last positivie culture/infection: 10/02/21 MDRO Source:: URINE ESBL Past Surgical History: Back Surgery Past Psychological History: No Psychological Hx Reported Smoking Status: Never smoker Past Alcohol Use History: None Reported Past Drug Use History: None Reported Medications and Allergies Home Medications Medication Instructions Recorded Confirmed Type Aspirin EC [Ecotrin Low Dose] 81 mg PO DAILY 10/01/20 07/23/22 History Carbidopa-Levodopa 25-100 mg 2 tab PO TID 10/01/20 07/23/22 History [Sinemet 25-100 mg] Levothyroxine Sodium [Synthroid] 150 mcg PO DAILY 10/01/20 07/23/22 History Tamsulosin HCl [Flomax] 0.4 mg PO DAILY 10/01/20 07/23/22 History Ascorbic Acid [Vitamin C] 1,000 mg PO DAILY tab 04/03/21 07/23/22 Rx Pregabalin [Lyrica] 150 mg PO TID #9 cap 04/03/21 07/23/22 Rx Albuterol Inhaler [Ventolin Hfa 2 puff INHALATION RT-Q6H PRN 07/23/22 07/23/22 History Inhaler] Cephalexin [Keflex] 250 mg PO DAILY 07/23/22 07/23/22 History Cholecalciferol [Vitamin D3 (25 50 mcg PO DAILY 07/23/22 07/23/22 History Mcg = 1000 Iu)] Cranberry 450mg 450 mg PO DAILY 07/23/22 07/23/22 History Cyanocobalamin [Vitamin B-12] 500 mcg PO DAILY 07/23/22 07/23/22 History Elderberry Fruit [Elderberry] 350 mg PO DAILY 07/23/22 07/23/22 History Empagliflozin [Jardiance] 10 mg PO DAILY 07/23/22 07/23/22 History Fish Oil/Dha/Epa [Fish Oil 1,200 1 cap PO BID 07/23/22 07/23/22 History mg Fish Oil] Glucosam/Jamar-Msm1/C/Yonas/Bosw 1 tab PO BID 07/23/22 07/23/22 History [Ttocsjhywtf-Rwaifjcxhkk-PQX Tb] Magnesium Citrate and Oxide 250 mg PO DAILY 07/23/22 07/23/22 History [Magnesium] Melatonin 10 mg PO HS 07/23/22 07/23/22 History Nystatin 100,000 Unit/gm Powd 1 applic TOPICAL BID PRN 07/23/22 07/23/22 History [Mycostatin Powder] Omeprazole 40 mg PO DAILY 07/23/22 07/23/22 History Allergies Allergy/AdvReac Type Severity Reaction Status Date / Time Sulfa (Sulfonamide Allergy Unknown Verified 03/21/21 15:47 Antibiotics) Physical Exam Vitals: Vital Signs Temp Pulse Resp BP BP Pulse Ox 07/24/22 01:00 80 8 L 102/65 96 07/24/22 00:55 80 2 L 105/66 96 07/24/22 00:50 80 7 L 104/66 96 07/24/22 00:45 79 6 L 106/70 96 07/24/22 00:40 79 13 114/73 96 07/24/22 00:35 69 0 L 114/73 94 L 07/24/22 00:30 100.8 F H 85 0 L 106/65 96 07/24/22 00:25 86 5 L 106/65 96 07/24/22 00:20 93 8 L 106/65 91 L 07/24/22 00:15 30 H 07/24/22 00:05 97/48 07/24/22 00:00 86 17 78/50 94 L 07/23/22 23:55 92 16 87/50 95 07/23/22 23:50 90 15 88/49 95 07/23/22 23:45 95 16 89/53 94 L 07/23/22 23:40 98 18 86/49 95 07/23/22 23:35 98 19 79/54 95 07/23/22 23:30 95 17 84/49 95 07/23/22 23:25 96 17 78/48 95 07/23/22 23:20 95 18 91/47 96 07/23/22 23:15 93 18 84/46 96 07/23/22 23:10 96 16 80/44 95 07/23/22 23:05 93 16 90/45 95 07/23/22 23:00 87 13 76/46 96 07/23/22 22:45 97 19 83/45 94 L 07/23/22 22:30 93 17 84/44 96 05// 22:15 92 16 67/49 96 05// 22:00 98 15 77/48 94 L 05 21:45 96 16 76/47 95 05 21:30 97 16 75/46 95 05 21:15 98 17 76/47 95 05 21:00 99 17 86/47 05 20:45 101 H 16 84/53 98 05 20:30 101 H 17 90/56 98 05 20:26 99 16 86/54 97 05 20:15 97 16 90/54 98 05 20:00 98 16 81/52 98 05 19:45 101 H 15 84/55 98 05 19:30 99 15 82/50 98 07/23/22 19:15 98 15 91/50 98 07/23/22 19:00 100.9 F H 103 H 19 86/58 98 07/23/22 18:45 102 H 16 76/57 98 07/23/22 18:30 100.4 F H 100 15 77/53 98 05 18:15 96 14 83/51 98 07/23/22 18:00 101 H 16 70/51 99 07/23/22 17:45 93 15 79/58 98 07/23/22 17:30 100.0 F H 98 17 81/54 98 07/23/22 17:15 98 15 67/50 99 07/23/22 17:09 67/50 05 17:00 93 15 85/53 97 07/23/22 16:45 96 16 94/53 97 07/23/22 16:30 99.9 F H 95 14 79/58 97 05 16:15 97 15 76/50 95 05 16:00 98 16 84/48 97 07/23/22 15:30 121 H 16 114/69 95 07/23/22 15:15 123 H 21 101/68 95 07/23/22 15:00 101.8 F H 121 H 16 77/52 95 05 14:45 117 H 19 76/53 96 05 14:30 113 H 19 76/53 97 07/23/22 14:15 109 H 18 80/53 97 07/23/22 13:58 112 H 18 82/57 98 07/23/22 13:20 101.3 F H 115 H 22 103/67 99 Intake and Output 07/23/22 07/23/22 07/24/22 14:59 22:59 06:59 Intake Total 17.817 Balance 17.817 Intake: Intake, IV Titration 17.817 Amount Norepinephrine 32 mg In 17.817 Sodium Chloride 0.9% 218 ml @ 0.03 MCG/KG/MIN 1.32 mls/hr IV .Q24H ONE Rx#: [id number] Other: Weight 93.894 kg 93.894 kg GENERAL EXAM: Drowsy, answer simple questions, but falls back asleep without verbal stimulation. HEAD: Normocephalic and atraumatic EYES: Normal reaction of pupils, equal size. NOSE: Clear with pink turbinates. THROAT: No erythema or exudates. NECK: No masses, no JVD. Right IJ triple-lumen central line catheter sutured in place CHEST: No chest wall deformity. LUNGS: Equal air entry with scattered crackles. No wheeze, rhonchi or focal dullness. On room air. No conversational dyspnea or accessory muscle use.. CVS: S1 and S2 normal with no audible murmur, regular rhythm. No extra heart sounds ABDOMEN: No hepatosplenomegaly, active bowel sounds, no guarding or rigidity. SPINE: No scoliosis or deformity SKIN: No rashes CENTRAL NERVOUS SYSTEM: Drowsy, without focal deficits, tone is normal in all 4 extremities. EXTREMITIES: There is no peripheral edema, clubbing, or cyanosis. Peripheral pulses are intact. Results - Laboratory Findings CBC and BMP: 07/23/22 13:30 07/23/22 13:30 PT/INR, D-dimer PT 11.6 sec (9.0-12.0) 07/23/22 13:30 INR 1.1 (<1.2) 07/23/22 13:30 Abnormal lab findings: Abnormal Labs 07/23/22 07/23/22 07/23/22 13:30 13:30 13:30 Lymphocytes # (Manual) 0.14 L Metamyelocytes # (Man) 0.07 H BUN 25 H Glucose 158 H POC Glucose (mg/dL) Plasma Lactic Acid Be Total Protein 6.0 L Albumin 3.3 L Urine Protein 1+ H Urine Glucose (UA) 4+ H Urine Ketones Trace H Urine Blood Large H Ur Leukocyte Esterase Large H Urine RBC 37 H Urine WBC 167 H Urine WBC Clumps Occasional H Urine Bacteria Many H Urine Mucus Occasional H 07/23/22 07/23/22 07/23/22 13:30 19:07 22:42 Lymphocytes # (Manual) Metamyelocytes # (Man) BUN Glucose POC Glucose (mg/dL) Plasma Lactic Acid Be 4.6 H* 5.2 H* 4.0 H* Total Protein Albumin Urine Protein Urine Glucose (UA) Urine Ketones Urine Blood Ur Leukocyte Esterase Urine RBC Urine WBC Urine WBC Clumps Urine Bacteria Urine Mucus 07/24/22 00:13 Lymphocytes # (Manual) Metamyelocytes # (Man) BUN Glucose POC Glucose (mg/dL) 115 H Plasma Lactic Acid Be Total Protein Albumin Urine Protein Urine Glucose (UA) Urine Ketones Urine Blood Ur Leukocyte Esterase Urine RBC Urine WBC Urine WBC Clumps Urine Bacteria Urine Mucus - Diagnostic Findings Chest x-ray: image reviewed Assessment and Plan Assessment: Sepsis and septic shock possibly secondary UTI. Suffers from frequent UTIs with previous ESBL producing organisms. Urinalysis shows evidence of UTI. Patient does reportedly follow-up with urologist, and is on chronic Keflex. Acute hypoxemic respiratory failure, currently on 3 L nasal cannula. Chest x-ray showed right lower lobe airspace opacities which could represent summation of vasculature versus pneumonia. Negative for influenza, RSV, COVID-19. Lactic acidemia, improving BPH Diabetes mellitus type 2, non-insulin dependent Hypothyroidism Parkinson's disease Diabetic neuropathy History of Gullian Red Jacket syndrome Obesity with a BMI of 31 Plan: Patient's medications, labs, chest x-ray reviewed Continue supplemental oxygen to maintain oxygen saturation 92% or greater Repeat chest x-ray in the morning Give an additional 1 L normal saline bolus Continue norepinephrine infusion and start vasopressin if needed for refractory hypotension trend lactic acid levels Continue empiric antibiotics Blood and urine cultures are pending Consult infectious disease Protonix for GI prophylaxis Heparin for DVT prophylaxis NovoLog insulin ACHS to scale Restart home medications Patient will be transferred to the intensive care unit once bed available We will continue to follow I have personally seen and examined the patient, performed the documentation and the assessment and plan as written. Number of minutes spent on the visit:20 Time with Patient: Greater than 30
[2022-07-24] MEDS: MEROPENEM 1 GM in SODIUM CHLORIDE 0.9% 100 ML IVPB SCH ×3 (03:17→18:25)
[2022-07-24 04:54] LABS: African American GFR (CKD) 75 (>60 ml/min/1.73 sqM); Anion Gap 10 mmol/L; Blood Urea Nitrogen 25 mg/dL (9-20); Calcium 8.9 mg/dL (8.4-10.2); Carbon Dioxide 19 mmol/L (22-30); Chloride 112 mmol/L (98-107); Glucose 145 mg/dL (74-99); Magnesium 1.8 mg/dL (1.6-2.3); Non-African American GFR(CKD) 65 (>60 ml/min/1.73 sqM); Potassium 4.2 mmol/L (3.5-5.1); Sodium 141 mmol/L (137-145)
[2022-07-24 05:05] LABS: Basophils % (A) 0 %; Eosinophils % (A) 0 %; HCT 40.5 % (39.0-53.0); HGB 12.8 gm/dL (13.0-17.5); Lymphocytes # (A) 0.4 k/uL (1.0-4.8); Lymphocytes % (A) 2 %; MCH 27.9 pg (25.0-35.0); MCHC 31.5 g/dL (31.0-37.0); MCV 88.4 fL (80.0-100.0); Mean Platelet Volume 9.4; Monocytes # (A) 0.8 k/uL (0-1.0); Monocytes % (A) 4 %; Neutrophils % (A) 93 %; Platelet Count 161 k/uL (150-450); RBC 4.58 m/uL (4.30-5.90); RDW 15.2 % (11.5-15.5); WBC 19.4 k/uL (3.8-10.6)
[2022-07-24] MEDS ORDERED: Magnesium Replacement Protocol 1 EACH MISC MISCELLANE PRN (05:29)
[2022-07-24] MEDS ORDERED: MAGNESIUM SULFATE-D5W PMX 1 GM in DEXTROSE/WATER 1 100ML.BAG IVPB ONE (05:29)
--- NOTE | 2022-07-24 06:26 | XR ---
EXAMINATION TYPE: XR chest 1V portable DATE OF EXAM: 07/24/2022 CLINICAL HISTORY: Difficulty breathing and possible pneumonia progress study. TECHNIQUE: Single AP portable semiupright view of the chest is obtained. COMPARISON: Chest x-ray from one day earlier and older studies. FINDINGS: Persistent left basilar and medial right basilar opacities. Upper lungs remain clear. Card iac silhouette size is stable and upper limits of normal. Degenerative change bilateral shoulders red emonstrated IMPRESSION: Persistent left greater than right bilateral lower lung acute infiltrates and/or atelecta sis. No significant change from one day earlier.
[2022-07-24] MEDS: LEVOTHYROXINE 75 MCG TAB PO SCH (06:47)
[2022-07-24 06:48] LABS: Glucose,Whole Blood 152 mg/dL (70-110)
[2022-07-24] MEDS: INSULIN ASPART (NovoLOG) 100 UNIT/ML VIAL SQ SCH ×4 (06:48→21:02)
[2022-07-24 07:03] LABS: T4, Free (Free Thyroxine) 1.65 ng/dL (0.78-2.19)
[2022-07-24] MEDS ORDERED: HYDROCORTISONE SUCCINATE 100 MG/2 ML VIAL IV SCH ×2 (08:45→15:00)
[2022-07-24] MEDS: TAMSULOSIN 0.4 MG CAP.ER.24H PO SCH (10:16)
[2022-07-24] MEDS: CARBIDOPA-LEVODOPA 25-100 MG 1 EACH TAB PO SCH ×3 (10:16→21:02)
[2022-07-24] MEDS: HEPARIN SODIUM,PORCINE/PF 5,000 UNIT/0.5 ML SYRINGE SQ SCH ×2 (10:16→21:02)
[2022-07-24] MEDS: PANTOPRAZOLE 40 MG/10 ML VIAL IV SCH (10:17)
[2022-07-24] MEDS: SODIUM CHLORIDE 0.9% 1,000 ML IV SCH ×3 (10:35→20:42)
[2022-07-24 11:36] LABS: Glucose,Whole Blood 191 mg/dL (70-110)
[2022-07-24] MEDS: AZITHROMYCIN 500 MG TAB PO SCH (12:22)
--- NOTE | 2022-07-24 12:46 | P.GSCN ---
History of Present Illness Consult date: 07/24/22 Reason for Consult: Right lower limb dusky, pain with palpation Requesting physician: Scott Wade History of present illness: This pleasant 72-year-old male who presented to the emergency department yesterday by EMS for altered mental status changes with increased weakness and fatigue. He has a past medical history including Dendron Hoffman syndrome, diabetes mellitus with peripheral neuropathy, Parkinson's, hypothyroidism, frequent urinary tract infections, BPH, and Raynaud disease. Patient was admitted to the ICU with septic shock, possible right lower lobe pneumonia, urinary tract infection, acute hypoxic respiratory failure started on fluids and norepinephrine and vasopressin. Patient with a max temp of 101.8. He was started on azithromycin and Rocephin. Patient normally ambulates with assistance with walker. Currently sitting up in bed eating lunch. Family is at the bedside. He is without any acute complaints at this time. Vascular surgery was consulted for dusky right lower extremity with pain. Patient is known previously to vascular surgery for history of fall with compartment syndrome status post fasciotomy. Patient currently denies any pain in the right lower extremity. Family who is at the bedside state that he has were not and often will have discoloration and coolness at times. Today's labs WBC 19.4 hemoglobin 12.8 platelet count 161,000 sodium 141 potassium 4.2 BUN 25 creatinine 1.1 plasma lactic acid 4.0 Review of Systems A 14 point review systems was completed all pertinent positives and negatives as stated in the HPI. Past Medical History Past Medical History: Diabetes Mellitus Additional Past Medical History / Comment(s): Frequent UTIs, guillian-barre syndrome, parkinsons, rt. shoulder rotator cuff repair, lasic eye surgery, L4-L5 laporoscopy History of Any Multi-Drug Resistant Organisms: ESBL Year Discovered:: 10/02/21 MDRO Source:: URINE ESBL Past Surgical History: Back Surgery Past Psychological History: No Psychological Hx Reported Smoking Status: Never smoker Past Alcohol Use History: None Reported Past Drug Use History: None Reported Medications and Allergies Home Medications Medication Instructions Recorded Confirmed Type Aspirin EC [Ecotrin Low Dose] 81 mg PO DAILY 10/01/20 07/23/22 History Carbidopa-Levodopa 25-100 mg 2 tab PO TID 10/01/20 07/23/22 History [Sinemet 25-100 mg] Levothyroxine Sodium [Synthroid] 150 mcg PO DAILY 10/01/20 07/23/22 History Tamsulosin HCl [Flomax] 0.4 mg PO DAILY 10/01/20 07/23/22 History Ascorbic Acid [Vitamin C] 1,000 mg PO DAILY tab 04/03/21 07/23/22 Rx Pregabalin [Lyrica] 150 mg PO TID #9 cap 04/03/21 07/23/22 Rx Albuterol Inhaler [Ventolin Hfa 2 puff INHALATION RT-Q6H PRN 07/23/22 07/23/22 History Inhaler] Cephalexin [Keflex] 250 mg PO DAILY 07/23/22 07/23/22 History Cholecalciferol [Vitamin D3 (25 50 mcg PO DAILY 07/23/22 07/23/22 History Mcg = 1000 Iu)] Cranberry 450mg 450 mg PO DAILY 07/23/22 07/23/22 History Cyanocobalamin [Vitamin B-12] 500 mcg PO DAILY 07/23/22 07/23/22 History Elderberry Fruit [Elderberry] 350 mg PO DAILY 07/23/22 07/23/22 History Empagliflozin [Jardiance] 10 mg PO DAILY 07/23/22 07/23/22 History Fish Oil/Dha/Epa [Fish Oil 1,200 1 cap PO BID 07/23/22 07/23/22 History mg Fish Oil] Glucosam/Jamar-Msm1/C/Yonas/Bosw 1 tab PO BID 07/23/22 07/23/22 History [Vaneakfwhwh-Dhydqyyjtuk-CGC Tb] Magnesium Citrate and Oxide 250 mg PO DAILY 07/23/22 07/23/22 History [Magnesium] Melatonin 10 mg PO HS 07/23/22 07/23/22 History Nystatin 100,000 Unit/gm Powd 1 applic TOPICAL BID PRN 07/23/22 07/23/22 History [Mycostatin Powder] Omeprazole 40 mg PO DAILY 07/23/22 07/23/22 History Allergies Allergy/AdvReac Type Severity Reaction Status Date / Time Sulfa (Sulfonamide Allergy Unknown Verified 03/21/21 15:47 Antibiotics) Surgical - Exam Vital Signs Temp Pulse Resp BP Pulse Ox 101.3 F H 115 H 22 103/67 99 07/23/22 13:20 07/23/22 13:20 07/23/22 13:20 07/23/22 13:20 07/23/22 13:20 General appearance: The patient is alert, oriented, appears in no acute distress. HET: Head is normocephalic and atraumatic. Pupils are equal and reactive. Neck: Supple. Heart: Regular. Lungs: Equal expansion, normal respiratory effort. Abdomen: Soft, nontender, nondistended. Extremities: Right lower extremity cool to touch, right thigh and knee with purple discoloration, good capillary refill, tender to palpation on the lateral aspect of the thigh and knee. Right toes dusky. Non-painful to palpation. Palpable bilateral DP and PT pulses. Neurological: alert and oriented to self. Somewhat confused. Sensorimotor intact. Results - Labs 07/24/22 04:19 07/24/22 04:19 Abnormal Lab Results - Last 24 Hours (Table) 07/23/22 07/23/22 07/23/22 Range/Units 13:30 13:30 13:30 WBC (3.8-10.6) k/uL Hgb (13.0-17.5) gm/dL Neutrophils # (1.3-7.7) k/uL Lymphocytes # (1.0-4.8) k/uL Lymphocytes # (Manual) 0.14 L (1.0-4.8) k/uL Metamyelocytes # (Man) 0.07 H (0) k/uL Chloride (98-107) mmol/L Carbon Dioxide (22-30) mmol/L BUN 25 H (9-20) mg/dL Glucose 158 H (74-99) mg/dL POC Glucose (mg/dL) (70-110) mg/dL Plasma Lactic Acid Be (0.7-2.0) mmol/L Total Protein 6.0 L (6.3-8.2) g/dL Albumin 3.3 L (3.5-5.0) g/dL TSH (0.465-4.680) mIU/L Urine Protein 1+ H (Negative) Urine Glucose (UA) 4+ H (Negative) Urine Ketones Trace H (Negative) Urine Blood Large H (Negative) Ur Leukocyte Esterase Large H (Negative) Urine RBC 37 H (0-5) /hpf Urine WBC 167 H (0-5) /hpf Urine WBC Clumps Occasional H (None) /hpf Urine Bacteria Many H (None) /hpf Urine Mucus Occasional H (None) /hpf 07/23/22 07/23/22 07/23/22 Range/Units 13:30 19:07 22:42 WBC (3.8-10.6) k/uL Hgb (13.0-17.5) gm/dL Neutrophils # (1.3-7.7) k/uL Lymphocytes # (1.0-4.8) k/uL Lymphocytes # (Manual) (1.0-4.8) k/uL Metamyelocytes # (Man) (0) k/uL Chloride (98-107) mmol/L Carbon Dioxide (22-30) mmol/L BUN (9-20) mg/dL Glucose (74-99) mg/dL POC Glucose (mg/dL) (70-110) mg/dL Plasma Lactic Acid Be 4.6 H* 5.2 H* 4.0 H* (0.7-2.0) mmol/L Total Protein (6.3-8.2) g/dL Albumin (3.5-5.0) g/dL TSH (0.465-4.680) mIU/L Urine Protein (Negative) Urine Glucose (UA) (Negative) Urine Ketones (Negative) Urine Blood (Negative) Ur Leukocyte Esterase (Negative) Urine RBC (0-5) /hpf Urine WBC (0-5) /hpf Urine WBC Clumps (None) /hpf Urine Bacteria (None) /hpf Urine Mucus (None) /hpf 07/24/22 07/24/22 07/24/22 Range/Units 00:13 01:22 04:19 WBC 19.4 H (3.8-10.6) k/uL Hgb 12.8 L (13.0-17.5) gm/dL Neutrophils # 18.0 H (1.3-7.7) k/uL Lymphocytes # 0.4 L (1.0-4.8) k/uL Lymphocytes # (Manual) (1.0-4.8) k/uL Metamyelocytes # (Man) (0) k/uL Chloride (98-107) mmol/L Carbon Dioxide (22-30) mmol/L BUN (9-20) mg/dL Glucose (74-99) mg/dL POC Glucose (mg/dL) 115 H (70-110) mg/dL Plasma Lactic Acid Be 3.8 H* (0.7-2.0) mmol/L Total Protein (6.3-8.2) g/dL Albumin (3.5-5.0) g/dL TSH (0.465-4.680) mIU/L Urine Protein (Negative) Urine Glucose (UA) (Negative) Urine Ketones (Negative) Urine Blood (Negative) Ur Leukocyte Esterase (Negative) Urine RBC (0-5) /hpf Urine WBC (0-5) /hpf Urine WBC Clumps (None) /hpf Urine Bacteria (None) /hpf Urine Mucus (None) /hpf 07/24/22 07/24/22 07/24/22 Range/Units 04:19 04:19 06:47 WBC (3.8-10.6) k/uL Hgb (13.0-17.5) gm/dL Neutrophils # (1.3-7.7) k/uL Lymphocytes # (1.0-4.8) k/uL Lymphocytes # (Manual) (1.0-4.8) k/uL Metamyelocytes # (Man) (0) k/uL Chloride 112 H (98-107) mmol/L Carbon Dioxide 19 L (22-30) mmol/L BUN 25 H (9-20) mg/dL Glucose 145 H (74-99) mg/dL POC Glucose (mg/dL) 152 H (70-110) mg/dL Plasma Lactic Acid Be 3.4 H* (0.7-2.0) mmol/L Total Protein (6.3-8.2) g/dL Albumin (3.5-5.0) g/dL TSH 0.149 L (0.465-4.680) mIU/L Urine Protein (Negative) Urine Glucose (UA) (Negative) Urine Ketones (Negative) Urine Blood (Negative) Ur Leukocyte Esterase (Negative) Urine RBC (0-5) /hpf Urine WBC (0-5) /hpf Urine WBC Clumps (None) /hpf Urine Bacteria (None) /hpf Urine Mucus (None) /hpf 07/24/22 07/24/22 07/24/22 Range/Units 07:32 10:27 11:33 WBC (3.8-10.6) k/uL Hgb (13.0-17.5) gm/dL Neutrophils # (1.3-7.7) k/uL Lymphocytes # (1.0-4.8) k/uL Lymphocytes # (Manual) (1.0-4.8) k/uL Metamyelocytes # (Man) (0) k/uL Chloride (98-107) mmol/L Carbon Dioxide (22-30) mmol/L BUN (9-20) mg/dL Glucose (74-99) mg/dL POC Glucose (mg/dL) 191 H (70-110) mg/dL Plasma Lactic Acid Be 3.5 H* 4.0 H* (0.7-2.0) mmol/L Total Protein (6.3-8.2) g/dL Albumin (3.5-5.0) g/dL TSH (0.465-4.680) mIU/L Urine Protein (Negative) Urine Glucose (UA) (Negative) Urine Ketones (Negative) Urine Blood (Negative) Ur Leukocyte Esterase (Negative) Urine RBC (0-5) /hpf Urine WBC (0-5) /hpf Urine WBC Clumps (None) /hpf Urine Bacteria (None) /hpf Urine Mucus (None) /hpf Microbiology - Last 24 Hours (Table) 07/23/22 13:30 Urine Culture - Preliminary Urine,Catheterized Diabetes panel 07/23/22 07/24/22 Range/Units 13:30 04:19 Sodium 139 141 (137-145) mmol/L Potassium 3.8 4.2 (3.5-5.1) mmol/L Chloride 107 112 H (98-107) mmol/L Carbon Dioxide 22 19 L (22-30) mmol/L BUN 25 H 25 H (9-20) mg/dL Creatinine 1.21 1.14 (0.66-1.25) mg/dL Glucose 158 H 145 H (74-99) mg/dL Calcium 9.6 8.9 (8.4-10.2) mg/dL AST 25 (17-59) U/L ALT 19 (4-49) U/L Alkaline Phosphatase 123 (38-126) U/L Total Protein 6.0 L (6.3-8.2) g/dL Albumin 3.3 L (3.5-5.0) g/dL Thyroid panel 07/24/22 Range/Units 04:19 TSH 0.149 L (0.465-4.680) mIU/L Calcium panel 07/23/22 07/24/22 Range/Units 13:30 04:19 Calcium 9.6 8.9 (8.4-10.2) mg/dL Albumin 3.3 L (3.5-5.0) g/dL Pituitary panel 07/23/22 07/24/22 Range/Units 13:30 04:19 Sodium 139 141 (137-145) mmol/L Potassium 3.8 4.2 (3.5-5.1) mmol/L Chloride 107 112 H (98-107) mmol/L Carbon Dioxide 22 19 L (22-30) mmol/L BUN 25 H 25 H (9-20) mg/dL Creatinine 1.21 1.14 (0.66-1.25) mg/dL Glucose 158 H 145 H (74-99) mg/dL Calcium 9.6 8.9 (8.4-10.2) mg/dL TSH 0.149 L (0.465-4.680) mIU/L Adrenal panel 07/23/22 07/24/22 Range/Units 13:30 04:19 Sodium 139 141 (137-145) mmol/L Potassium 3.8 4.2 (3.5-5.1) mmol/L Chloride 107 112 H (98-107) mmol/L Carbon Dioxide 22 19 L (22-30) mmol/L BUN 25 H 25 H (9-20) mg/dL Creatinine 1.21 1.14 (0.66-1.25) mg/dL Glucose 158 H 145 H (74-99) mg/dL Calcium 9.6 8.9 (8.4-10.2) mg/dL Total Bilirubin 0.8 (0.2-1.3) mg/dL AST 25 (17-59) U/L ALT 19 (4-49) U/L Alkaline Phosphatase 123 (38-126) U/L Total Protein 6.0 L (6.3-8.2) g/dL Albumin 3.3 L (3.5-5.0) g/dL Assessment and Plan Assessment: 1. Cool right lower extremity with discoloration 2. Raynaud disease 3. Sepsis with Septic shock 4. Possible right lower lobe pneumonia 5. Acute hypoxemic respiratory failure secondary to above 6. Diabetes mellitus with peripheral neuropathy 7. Parkinson's disease 8. BPH 9. History of Guillain Hoffman syndrome Plan: Patient with good palpable bilateral DP pulses. Patient does have a history of Raynauds and Parkinson's disease. Likely microvascular related to Raynauds/Parkinson's disease. He has also been on pressors for sepsis and hypotension. Right thigh and knee is tender to palpation however from the knee down patient denies any discomfort with palpation. Venous duplex negative for DVT. Apply warm blanket to right lower extremity, no indication for any vascular surgical intervention. We'll continue to follow. The impression and plan of care has been dictated as directed. Dr. Gerardo I performed a history and examination of this patient, discussed the same with the dictator. I agree with the dictator's note ,documented as a scribe. Any additional findings or plans will be noted. Patient seen and examined by myself. Palpable DP and PT pulses. No pain to the lower extremity, some discomfort to the level of the knee, the mottling itself appears to be only at the level of the knee. Keep extremity warm. Could be microvascular related to her knowledge along with pressor support and hypotension. If continuing with knee pain, may consider further imaging to rule out any sort of knee infection versus orthopedic consultation. Dr. Zuri Gerardo.
--- NOTE | 2022-07-24 13:15 | US ---
EXAMINATION TYPE: US venous doppler duplex LE RT DATE OF EXAM: 07/24/2022 1:07 PM Exam done portable in ICU COMPARISON: NONE CLINICAL INDICATION: Male, 72 years old with history of right lower extremity pain, discoloration; SIDE PERFORMED: Right TECHNIQUE: The lower extremity deep venous system is examined utilizing real time linear array sonog marcial with graded compression, doppler sonography and color-flow sonography. VESSELS IMAGED: Femoral Vein Popliteal Vein Small Saphenous Vein * Proximal Calf Veins (* superficial vessels) Right EIV, GSV, CFV and deep femoral vein not imaged due to bandage in groin area Right Leg: visualized portions appear negative for DVT Grayscale, color doppler, spectral doppler imaging performed of the deep veins of the right lower ext remity. There is normal flow, compressibility, vascular waveforms. IMPRESSION: Suboptimal study. Visualized portion of right lower extremity show no evidence for acute DVT.
[2022-07-24 17:04] LABS: Glucose,Whole Blood 194 mg/dL (70-110)
[2022-07-24] MEDS ORDERED: HYDROcodone/APAP 5-325MG 1 EACH TAB PO PRN (17:46)
[2022-07-24 20:16] LABS: Glucose,Whole Blood 161 mg/dL (70-110)
[2022-07-24] MEDS: PREGABALIN 75 MG CAP PO SCH (21:03)
--- NOTE | 2022-07-24 21:53 | P.CONS ---
History of Present Illness - Reason for Consult Consult date: 07/24/22 sepsis Requesting physician: Ken Houston - Chief Complaint Mental status changes x one day - History of Present Illness Patient is a 72-year-old male with a past medical history significant for diabetes mellitus history of frequent UTI Guillain-Hoffman syndrome type 2 diabetes mellitus BPH patient was brought into the ER for evaluation of mental status changes apparently patient was seen to be doing well around 9 AM the day of presentation to the hospital subsequently noticed to be getting weaker and not responding appropriately for the patient was brought into the ER by the EMS on arrival to the ER patient did have a fever of 101.3 degrees for right patient was tachycardic and hypotensive requiring pressor support patient did have elevated lactic acid initially what was normal repeat but was up to 19.4 today with a left shift BUN is mildly elevated liver labs are normal did have a positive UA influenza RSV and COVID testing was negative patient did have a chest x-ray right lower lobe airspace opacity could represent vasculature versus pneumonia patient was started on meropenem because of his history of ESBL infection infectious was consulted for further management of antibiotic therapy most information has been obtained from review the chart has been him some elevated good historian patient is currently more awake and alert however he did not recall what brought him to the hospital patient she denies having any headache or URI symptoms no chest pain or shortness of breath very minimal cough no nausea vomiting no abdominal pain or diarrhea Review of Systems Positive point and negatives has been mentioned in the HPI, complete review of systems was performed and all other systems are negative Past Medical History Past Medical History: Diabetes Mellitus Additional Past Medical History / Comment(s): Frequent UTIs, guillian-barre syndrome, parkinsons, rt. shoulder rotator cuff repair, lasic eye surgery, L4-L5 laporoscopy History of Any Multi-Drug Resistant Organisms: ESBL Year Discovered:: 10/02/21 MDRO Source:: URINE ESBL Past Surgical History: Back Surgery Past Psychological History: No Psychological Hx Reported Smoking Status: Never smoker Past Alcohol Use History: None Reported Past Drug Use History: None Reported Medications and Allergies Home Medications Medication Instructions Recorded Confirmed Type Aspirin EC [Ecotrin Low Dose] 81 mg PO DAILY 10/01/20 07/23/22 History Carbidopa-Levodopa 25-100 mg 2 tab PO TID 10/01/20 07/23/22 History [Sinemet 25-100 mg] Levothyroxine Sodium [Synthroid] 150 mcg PO DAILY 10/01/20 07/23/22 History Tamsulosin HCl [Flomax] 0.4 mg PO DAILY 10/01/20 07/23/22 History Ascorbic Acid [Vitamin C] 1,000 mg PO DAILY tab 04/03/21 07/23/22 Rx Pregabalin [Lyrica] 150 mg PO TID #9 cap 04/03/21 07/23/22 Rx Albuterol Inhaler [Ventolin Hfa 2 puff INHALATION RT-Q6H PRN 07/23/22 07/23/22 History Inhaler] Cholecalciferol [Vitamin D3 (25 50 mcg PO DAILY 07/23/22 07/23/22 History Mcg = 1000 Iu)] Cranberry 450mg 450 mg PO DAILY 07/23/22 07/23/22 History Cyanocobalamin [Vitamin B-12] 500 mcg PO DAILY 07/23/22 07/23/22 History Elderberry Fruit [Elderberry] 350 mg PO DAILY 07/23/22 07/23/22 History Empagliflozin [Jardiance] 10 mg PO DAILY 07/23/22 07/23/22 History Fish Oil/Dha/Epa [Fish Oil 1,200 1 cap PO BID 07/23/22 07/23/22 History mg Fish Oil] Glucosam/Jamar-Msm1/C/Yonas/Bosw 1 tab PO BID 07/23/22 07/23/22 History [Ttneycitlul-Swfttsifpct-XYS Tb] Melatonin 10 mg PO HS 07/23/22 07/23/22 History Omeprazole 40 mg PO DAILY 07/23/22 07/23/22 History Ertapenem [INVanz] 1 gm IVPB Q24H #7 each 07/30/22 Rx Allergies Allergy/AdvReac Type Severity Reaction Status Date / Time Sulfa (Sulfonamide Allergy Unknown Verified 03/21/21 15:47 Antibiotics) Physical Exam Vitals: Vital Signs Temp Pulse Pulse Resp BP BP Pulse Ox 07/24/22 11:00 74 18 112/68 96 07/24/22 10:45 75 7 L 119/75 96 07/24/22 10:30 68 15 120/72 96 07/24/22 10:15 74 10 L 113/85 96 07/24/22 10:00 75 9 L 114/86 96 07/24/22 09:45 67 16 126/81 96 07/24/22 09:30 73 0 L 120/70 96 07/24/22 09:15 73 2 L 116/81 96 07/24/22 09:14 96 07/24/22 09:00 64 9 L 115/67 95 07/24/22 08:45 71 0 L 104/69 96 07/24/22 08:30 72 0 L 123/70 96 07/24/22 08:15 70 3 L 128/71 96 07/24/22 08:00 98.8 F 69 7 L 109/73 97 07/24/22 07:45 73 0 L 109/72 97 07/24/22 07:30 71 12 115/66 97 07/24/22 07:15 73 12 111/70 97 07/24/22 07:00 77 10 L 106/72 97 07/24/22 06:45 72 11 L 104/87 97 07/24/22 06:30 69 10 L 94/46 97 07/24/22 06:24 97 07/24/22 06:15 78 13 100/69 97 07/24/22 06:00 74 10 L 111/76 96 07/24/22 05:45 74 12 100/62 96 07/24/22 05:30 74 10 L 103/62 97 07/24/22 05:15 73 12 105/65 97 07/24/22 05:00 66 15 107/65 97 07/24/22 04:45 72 13 107/72 96 07/24/22 04:30 71 10 L 104/65 97 07/24/22 04:15 70 12 101/63 96 07/24/22 04:00 99.8 F H 77 9 L 102/66 97 07/24/22 03:45 74 14 106/64 97 07/24/22 03:30 73 12 110/67 97 07/24/22 03:15 77 11 L 106/65 96 07/24/22 03:00 79 14 105/64 97 07/24/22 02:45 76 17 109/65 96 07/24/22 02:30 79 15 108/69 96 07/24/22 02:15 79 8 L 108/66 96 07/24/22 02:00 80 15 114/64 96 07/24/22 01:45 82 17 106/68 96 07/24/22 01:30 82 17 101/65 96 07/24/22 01:15 83 12 105/65 96 07/24/22 01:00 80 8 L 102/65 96 07/24/22 00:55 80 12 105/66 96 07/24/22 00:50 80 7 L 104/66 96 07/24/22 00:45 79 6 L 106/70 96 07/24/22 00:40 79 13 114/73 96 07/24/22 00:35 69 10 L 114/73 94 L 07/24/22 00:30 100.8 F H 85 10 L 106/65 96 07/24/22 00:25 86 5 L 106/65 96 07/24/22 00:20 93 8 L 106/65 91 L 07/24/22 00:15 30 H 07/24/22 00:05 97/48 07/24/22 00:00 86 80 17 78/50 94 L 07/23/22 23:55 92 16 87/50 95 07/23/22 23:50 90 15 88/49 95 07/23/22 23:45 95 16 89/53 94 L 07/23/22 23:40 98 18 86/49 95 07/23/22 23:35 98 19 79/54 95 07/23/22 23:30 95 17 84/49 95 07/23/22 23:25 96 17 78/48 95 07/23/22 23:20 95 18 91/47 96 07/23/22 23:15 93 18 84/46 96 07/23/22 23:10 96 16 80/44 95 07/23/22 23:05 93 16 90/45 95 07/23/22 23:00 87 13 76/46 96 07/23/22 22:45 97 19 83/45 94 L 07/23/22 22:30 93 17 84/44 96 07/23/22 22:15 92 16 67/49 96 07/23/22 22:00 98 15 77/48 94 L 07/23/22 21:45 96 16 76/47 95 07/23/22 21:30 97 16 75/46 95 07/23/22 21:15 98 17 76/47 95 07/23/22 21:00 99 17 86/47 07/23/22 20:45 101 H 16 84/53 98 07/23/22 20:30 101 H 17 90/56 98 07/23/22 20:26 99 16 86/54 97 07/23/22 20:15 97 16 90/54 98 07/23/22 20:00 98 16 81/52 98 07/23/22 19:45 101 H 15 84/55 98 07/23/22 19:30 99 15 82/50 98 07/23/22 19:15 98 15 91/50 98 07/23/22 19:00 100.9 F H 103 H 19 86/58 98 07/23/22 18:45 102 H 16 76/57 98 07/23/22 18:30 100.4 F H 100 15 77/53 98 07/23/22 18:15 96 14 83/51 98 07/23/22 18:00 101 H 16 70/51 99 07/23/22 17:45 93 15 79/58 98 07/23/22 17:30 100.0 F H 98 17 81/54 98 07/23/22 17:15 98 15 67/50 99 07/23/22 17:09 67/50 07/23/22 17:00 93 15 85/53 97 07/23/22 16:45 96 16 94/53 97 07/23/22 16:30 99.9 F H 95 14 79/58 97 07/23/22 16:15 97 15 76/50 95 07/23/22 16:00 98 16 84/48 97 07/23/22 15:30 121 H 16 114/69 95 07/23/22 15:15 123 H 21 101/68 95 07/23/22 15:00 101.8 F H 121 H 16 77/52 95 07/23/22 14:45 117 H 19 76/53 96 07/23/22 14:30 113 H 19 76/53 97 07/23/22 14:15 109 H 18 80/53 97 07/23/22 13:58 112 H 18 82/57 98 07/23/22 13:20 101.3 F H 115 H 22 103/67 99 Intake and Output 05/ 05/24/23 05 22:59 06:59 14:59 Intake Total 17.817 2192.008 1085.649 Output Total 955 725 Balance 17.817 1237.008 360.649 Intake: Intake, IV Titration 17.817 1952.008 885.649 Amount Magnesium Sulfate-D5w Pmx 100 1 gm In Dextrose/Water 1 100ml.bag @ 100 mls/hr IVPB ONCE ONE Rx#: [id number] Meropenem 1 gm In Sodium 100 100 Chloride 0.9% 100 ml @ 33 .3 mls/hr IVPB Q8H [facility] Rx #:[id number] Norepinephrine 32 mg In 17.817 72.008 35.649 Sodium Chloride 0.9% 218 ml @ 0.03 MCG/KG/MIN 1.32 mls/hr IV .Q24H ONE Rx#: [id number] Sodium Chloride 0.9% 1, 780 650 000 ml @ 130 mls/hr IV . Q7H42M [facility] Rx#:[id number] Sodium Chloride 0.9% 1, 1000 000 ml @ 999 mls/hr IV . Q1H1M ONE Rx#:[id number] Oral 240 200 Output: Urine 955 725 Other: Voiding Method Indwelling Catheter Indwelling Catheter Weight 93.894 kg 98.9 kg GENERAL DESCRIPTION: An elderly male lying in bed, no distress. No tachypnea or accessory muscle of respiration use. HEENT: Shows Pallor , no scleral icterus. Oral mucous membrane is dry. No pharyngeal erythema or thrush NECK: Trachea central, no thyromegaly. LUNGS: Unlabored breathing. Decreased breath sounds at the base HEART: S1, S2, regular rate and rhythm. No loud murmur ABDOMEN: Soft, no tenderness , guarding or rigidity, no organomegaly EXTREMITIES: No edema of feet. SKIN: No rash, no masses palpable. NEUROLOGICAL: The patient is lethargic but arousable no obvious focal weakness Results CBC & Chem 7: 07/29/22 05:28 07/29/22 05:28 Labs: Abnormal Lab Results - Last 24 Hours (Table) 07/23/22 07/23/22 07/23/22 Range/Units 13:30 13:30 13:30 WBC (3.8-10.6) k/uL Hgb (13.0-17.5) gm/dL Neutrophils # (1.3-7.7) k/uL Lymphocytes # (1.0-4.8) k/uL Lymphocytes # (Manual) 0.14 L (1.0-4.8) k/uL Metamyelocytes # (Man) 0.07 H (0) k/uL Chloride (98-107) mmol/L Carbon Dioxide (22-30) mmol/L BUN 25 H (9-20) mg/dL Glucose 158 H (74-99) mg/dL POC Glucose (mg/dL) (70-110) mg/dL Plasma Lactic Acid Be (0.7-2.0) mmol/L Total Protein 6.0 L (6.3-8.2) g/dL Albumin 3.3 L (3.5-5.0) g/dL TSH (0.465-4.680) mIU/L Urine Protein 1+ H (Negative) Urine Glucose (UA) 4+ H (Negative) Urine Ketones Trace H (Negative) Urine Blood Large H (Negative) Ur Leukocyte Esterase Large H (Negative) Urine RBC 37 H (0-5) /hpf Urine WBC 167 H (0-5) /hpf Urine WBC Clumps Occasional H (None) /hpf Urine Bacteria Many H (None) /hpf Urine Mucus Occasional H (None) /hpf 07/23/22 07/23/22 07/23/22 Range/Units 13:30 19:07 22:42 WBC (3.8-10.6) k/uL Hgb (13.0-17.5) gm/dL Neutrophils # (1.3-7.7) k/uL Lymphocytes # (1.0-4.8) k/uL Lymphocytes # (Manual) (1.0-4.8) k/uL Metamyelocytes # (Man) (0) k/uL Chloride (98-107) mmol/L Carbon Dioxide (22-30) mmol/L BUN (9-20) mg/dL Glucose (74-99) mg/dL POC Glucose (mg/dL) (70-110) mg/dL Plasma Lactic Acid Be 4.6 H* 5.2 H* 4.0 H* (0.7-2.0) mmol/L Total Protein (6.3-8.2) g/dL Albumin (3.5-5.0) g/dL TSH (0.465-4.680) mIU/L Urine Protein (Negative) Urine Glucose (UA) (Negative) Urine Ketones (Negative) Urine Blood (Negative) Ur Leukocyte Esterase (Negative) Urine RBC (0-5) /hpf Urine WBC (0-5) /hpf Urine WBC Clumps (None) /hpf Urine Bacteria (None) /hpf Urine Mucus (None) /hpf 07/24/22 07/24/22 07/24/22 Range/Units 00:13 01:22 04:19 WBC 19.4 H (3.8-10.6) k/uL Hgb 12.8 L (13.0-17.5) gm/dL Neutrophils # 18.0 H (1.3-7.7) k/uL Lymphocytes # 0.4 L (1.0-4.8) k/uL Lymphocytes # (Manual) (1.0-4.8) k/uL Metamyelocytes # (Man) (0) k/uL Chloride (98-107) mmol/L Carbon Dioxide (22-30) mmol/L BUN (9-20) mg/dL Glucose (74-99) mg/dL POC Glucose (mg/dL) 115 H (70-110) mg/dL Plasma Lactic Acid Be 3.8 H* (0.7-2.0) mmol/L Total Protein (6.3-8.2) g/dL Albumin (3.5-5.0) g/dL TSH (0.465-4.680) mIU/L Urine Protein (Negative) Urine Glucose (UA) (Negative) Urine Ketones (Negative) Urine Blood (Negative) Ur Leukocyte Esterase (Negative) Urine RBC (0-5) /hpf Urine WBC (0-5) /hpf Urine WBC Clumps (None) /hpf Urine Bacteria (None) /hpf Urine Mucus (None) /hpf 07/24/22 07/24/22 07/24/22 Range/Units 04:19 04:19 06:47 WBC (3.8-10.6) k/uL Hgb (13.0-17.5) gm/dL Neutrophils # (1.3-7.7) k/uL Lymphocytes # (1.0-4.8) k/uL Lymphocytes # (Manual) (1.0-4.8) k/uL Metamyelocytes # (Man) (0) k/uL Chloride 112 H (98-107) mmol/L Carbon Dioxide 19 L (22-30) mmol/L BUN 25 H (9-20) mg/dL Glucose 145 H (74-99) mg/dL POC Glucose (mg/dL) 152 H (70-110) mg/dL Plasma Lactic Acid Be 3.4 H* (0.7-2.0) mmol/L Total Protein (6.3-8.2) g/dL Albumin (3.5-5.0) g/dL TSH 0.149 L (0.465-4.680) mIU/L Urine Protein (Negative) Urine Glucose (UA) (Negative) Urine Ketones (Negative) Urine Blood (Negative) Ur Leukocyte Esterase (Negative) Urine RBC (0-5) /hpf Urine WBC (0-5) /hpf Urine WBC Clumps (None) /hpf Urine Bacteria (None) /hpf Urine Mucus (None) /hpf 07/24/22 07/24/22 07/24/22 Range/Units 07:32 10:27 11:33 WBC (3.8-10.6) k/uL Hgb (13.0-17.5) gm/dL Neutrophils # (1.3-7.7) k/uL Lymphocytes # (1.0-4.8) k/uL Lymphocytes # (Manual) (1.0-4.8) k/uL Metamyelocytes # (Man) (0) k/uL Chloride (98-107) mmol/L Carbon Dioxide (22-30) mmol/L BUN (9-20) mg/dL Glucose (74-99) mg/dL POC Glucose (mg/dL) 191 H (70-110) mg/dL Plasma Lactic Acid Be 3.5 H* 4.0 H* (0.7-2.0) mmol/L Total Protein (6.3-8.2) g/dL Albumin (3.5-5.0) g/dL TSH (0.465-4.680) mIU/L Urine Protein (Negative) Urine Glucose (UA) (Negative) Urine Ketones (Negative) Urine Blood (Negative) Ur Leukocyte Esterase (Negative) Urine RBC (0-5) /hpf Urine WBC (0-5) /hpf Urine WBC Clumps (None) /hpf Urine Bacteria (None) /hpf Urine Mucus (None) /hpf Microbiology - Last 24 Hours (Table) 07/23/22 13:30 Urine Culture - Preliminary Urine,Catheterized Assessment and Plan (1) Sepsis Status: Acute Code(s): A41.9 - SEPSIS, UNSPECIFIED ORGANISM SNOMED Code(s): 28344936 (2) UTI (urinary tract infection) Status: Acute Code(s): N39.0 - URINARY TRACT INFECTION, SITE NOT SPECIFIED SNOMED Code(s): 32883932 Plan: 1patient presented to hospital with sepsis in this patient with a fever tachycardia hypotension elevated lactic acid requiring fluid and pressor support significantly positive UA likely source is urinary tract infection underlying pneumonia less likely but not entirely excluded, patient did have a history of ESBL pathogen infection and will need to cover for it while waiting for the culture to finalize 2-patient to continue meropenem 1 g every 8 hours 3-ultrasound of the kidney and bladder area to make sure evidence of any struct ural abnormality 4-obtain sputum for Gram stain culture if patient is able to bring up any sputum We will follow on clinical condition and cultures to further adjust medication if needed Thank you for this consultation we will follow the patient along with you Time with Patient: Greater than 30
--- NOTE | 2022-07-24 23:19 | P.HPIM ---
History of Present Illness H&P Date: 07/24/22 Chief Complaint: Altered mentation Patient is a 72-year-old male with a known history of diabetes type 2 [id number], hypothyroidism, Parkinson's disease, history of Guillain- Hoffman syndrome, history of right lower extremity venous disease and prior history of multiple UTIs including ESBL UTI was brought to the hospital by EMS due to altered mental status and lethargy. Patient is a poor historian. According to his daughter patient was found to be lethargic and felt very weak when she noticed him around 9 AM yesterday morning. Patient was talking to her before she went to making breakfast. When she came back she was found to be pale and lips turned blue and also his extremities became cool and clammy. EMS was called and patient was brought to the hospital. He was noted to be febrile by EMS. On admission Tmax was 101.3. Chest x-ray showed right lower lobe airspace opacities which could represent summation of vasculature versus pneumonia.. Patient was tachycardic and hypotensive and received fluid boluses. Patient was started norepinephrine drip and was transferred to MICU. Patient is currently on 2 pressors. Laboratory data on admission showed WBC 6.8 hemoglobin 14.3 and platelets 151 Sodium 139 potassium 3.8 chloride 107 bicarb is 22 BUN 25 and creatinine 1.21 and lactic acid 4.6. Urinalysis showed 4+ glucose 1+ protein nitrite negative large leukocyte esterase with elevated RBCs and WBCs. Influenza, RSV and COVID-19 PCR not detected. Review of Systems Complete review of systems could not be obtained from the patient except as per HPI. ROS unobtainable: due to mental status Past Medical History Past Medical History: Diabetes Mellitus Additional Past Medical History / Comment(s): Frequent UTIs, guillian-barre syndrome, parkinsons, rt. shoulder rotator cuff repair, lasic eye surgery, L4-L5 laporoscopy History of Any Multi-Drug Resistant Organisms: ESBL Date of last positivie culture/infection: 10/02/21 MDRO Source:: URINE ESBL Past Surgical History: Back Surgery Past Psychological History: No Psychological Hx Reported Smoking Status: Never smoker Past Alcohol Use History: None Reported Past Drug Use History: None Reported Medications and Allergies Home Medications Medication Instructions Recorded Confirmed Type Aspirin EC [Ecotrin Low Dose] 81 mg PO DAILY 10/01/20 07/23/22 History Carbidopa-Levodopa 25-100 mg 2 tab PO TID 10/01/20 07/23/22 History [Sinemet 25-100 mg] Levothyroxine Sodium [Synthroid] 150 mcg PO DAILY 10/01/20 07/23/22 History Tamsulosin HCl [Flomax] 0.4 mg PO DAILY 10/01/20 07/23/22 History Ascorbic Acid [Vitamin C] 1,000 mg PO DAILY tab 04/03/21 07/23/22 Rx Pregabalin [Lyrica] 150 mg PO TID #9 cap 04/03/21 07/23/22 Rx Albuterol Inhaler [Ventolin Hfa 2 puff INHALATION RT-Q6H PRN 07/23/22 07/23/22 History Inhaler] Cephalexin [Keflex] 250 mg PO DAILY 07/23/22 07/23/22 History Cholecalciferol [Vitamin D3 (25 50 mcg PO DAILY 07/23/22 07/23/22 History Mcg = 1000 Iu)] Cranberry 450mg 450 mg PO DAILY 07/23/22 07/23/22 History Cyanocobalamin [Vitamin B-12] 500 mcg PO DAILY 07/23/22 07/23/22 History Elderberry Fruit [Elderberry] 350 mg PO DAILY 07/23/22 07/23/22 History Empagliflozin [Jardiance] 10 mg PO DAILY 07/23/22 07/23/22 History Fish Oil/Dha/Epa [Fish Oil 1,200 1 cap PO BID 07/23/22 07/23/22 History mg Fish Oil] Glucosam/Jamar-Msm1/C/Yonas/Bosw 1 tab PO BID 07/23/22 07/23/22 History [Rqwyyavefgf-Jugdkruarjn-KDN Tb] Magnesium Citrate and Oxide 250 mg PO DAILY 07/23/22 07/23/22 History [Magnesium] Melatonin 10 mg PO HS 07/23/22 07/23/22 History Nystatin 100,000 Unit/gm Powd 1 applic TOPICAL BID PRN 07/23/22 07/23/22 History [Mycostatin Powder] Omeprazole 40 mg PO DAILY 07/23/22 07/23/22 History Allergies Allergy/AdvReac Type Severity Reaction Status Date / Time Sulfa (Sulfonamide Allergy Unknown Verified 03/21/21 15:47 Antibiotics) Physical Exam Vitals: Vital Signs Temp Pulse Pulse Resp BP BP Pulse Ox 07/24/22 09:14 96 07/24/22 07:30 71 12 115/66 97 07/24/22 07:15 73 12 111/70 97 07/24/22 07:00 77 10 L 106/72 97 07/24/22 06:45 72 11 L 104/87 97 07/24/22 06:30 69 10 L 94/46 97 07/24/22 06:24 97 07/24/22 06:15 78 13 100/69 97 07/24/22 06:00 74 10 L 111/76 96 07/24/22 05:45 74 12 100/62 96 07/24/22 05:30 74 10 L 103/62 97 07/24/22 05:15 73 12 105/65 97 07/24/22 05:00 66 15 107/65 97 07/24/22 04:45 72 13 107/72 96 07/24/22 04:30 71 10 L 104/65 97 07/24/22 04:15 70 12 101/63 96 07/24/22 04:00 99.8 F H 77 9 L 102/66 97 07/24/22 03:45 74 14 106/64 97 07/24/22 03:30 73 12 110/67 97 07/24/22 03:15 77 11 L 106/65 96 07/24/22 03:00 79 14 105/64 97 07/24/22 02:45 76 17 109/65 96 07/24/22 02:30 79 15 108/69 96 07/24/22 02:15 79 8 L 108/66 96 07/24/22 02:00 80 15 114/64 96 07/24/22 01:45 82 17 106/68 96 07/24/22 01:30 82 17 101/65 96 07/24/22 01:15 83 12 105/65 96 07/24/22 01:00 80 8 L 102/65 96 07/24/22 00:55 80 12 105/66 96 07/24/22 00:50 80 7 L 104/66 96 07/24/22 00:45 79 6 L 106/70 96 07/24/22 00:40 79 13 114/73 96 07/24/22 00:35 69 10 L 114/73 94 L 07/24/22 00:30 100.8 F H 85 10 L 106/65 96 07/24/22 00:25 86 5 L 106/65 96 07/24/22 00:20 93 8 L 106/65 91 L 07/24/22 00:15 30 H 07/24/22 00:05 97/48 07/24/22 00:00 86 80 17 78/50 94 L 07/23/22 23:55 92 16 87/50 95 07/23/22 23:50 90 15 88/49 95 07/23/22 23:45 95 16 89/53 94 L 07/23/22 23:40 98 18 86/49 95 07/23/22 23:35 98 19 79/54 95 07/23/22 23:30 95 17 84/49 95 07/23/22 23:25 96 17 78/48 95 07/23/22 23:20 95 18 91/47 96 07/23/22 23:15 93 18 84/46 96 07/23/22 23:10 96 16 80/44 95 07/23/22 23:05 93 16 90/45 95 07/23/22 23:00 87 13 76/46 96 07/23/22 22:45 97 19 83/45 94 L 07/23/22 22:30 93 17 84/44 96 07/23/22 22:15 92 16 67/49 96 07/23/22 22:00 98 15 77/48 94 L 07/23/22 21:45 96 16 76/47 95 07/23/22 21:30 97 16 75/46 95 07/23/22 21:15 98 17 76/47 95 07/23/22 21:00 99 17 86/47 05 20:45 101 H 16 84/53 98 05 20:30 101 H 17 90/56 98 05 20:26 99 16 86/54 97 05 20:15 97 16 90/54 98 05 20:00 98 16 81/52 98 05 19:45 101 H 15 84/55 98 05 19:30 99 15 82/50 98 07/23/22 19:15 98 15 91/50 98 05 19:00 100.9 F H 103 H 19 86/58 98 05//23 18:45 102 H 16 76/57 98 07/23/22 18:30 100.4 F H 100 15 77/53 98 07/23/22 18:15 96 14 83/51 98 07/23/22 18:00 101 H 16 70/51 99 07/23/22 17:45 93 15 79/58 98 07/23/22 17:30 100.0 F H 98 17 81/54 98 07/23/22 17:15 98 15 67/50 99 07/23/22 17:09 67/50 07/23/22 17:00 93 15 85/53 97 07/23/22 16:45 96 16 94/53 97 07/23/22 16:30 99.9 F H 95 14 79/58 97 07/23/22 16:15 97 15 76/50 95 07/23/22 16:00 98 16 84/48 97 07/23/22 15:30 121 H 16 114/69 95 07/23/22 15:15 123 H 21 101/68 95 07/23/22 15:00 101.8 F H 121 H 16 77/52 95 07/23/22 14:45 117 H 19 76/53 96 07/23/22 14:30 113 H 19 76/53 97 07/23/22 14:15 109 H 18 80/53 97 07/23/22 13:58 112 H 18 82/57 98 07/23/22 13:20 101.3 F H 115 H 22 103/67 99 Intake and Output 07/23/22 07/24/22 07/24/22 22:59 06:59 14:59 Intake Total 17.817 2192.008 130 Output Total 955 75 Balance 17.817 1237.008 55 Intake: Intake, IV Titration 17.817 1952.008 130 Amount Meropenem 1 gm In Sodium 100 Chloride 0.9% 100 ml @ 33 .3 mls/hr IVPB Q8H [facility] Rx #:[id number] Norepinephrine 32 mg In 17.817 72.008 Sodium Chloride 0.9% 218 ml @ 0.03 MCG/KG/MIN 1.32 mls/hr IV .Q24H [facility] Rx#: [id number] Sodium Chloride 0.9% 1, 780 130 000 ml @ 130 mls/hr IV . Q7H42M [facility] Rx#:[id number] Sodium Chloride 0.9% 1, 1000 000 ml @ 999 mls/hr IV . Q1H1M [facility] Rx#:[id number] Oral 240 Output: Urine 955 75 Other: Voiding Method Indwelling Catheter Weight 93.894 kg 98.9 kg PHYSICAL EXAMINATION: Patient is lying in the. No acute distress, awake alert and oriented x1-2.. HEENT: Normocephalic. Neck is supple. Pupils reactive. Nostrils clear. Oral cavity is moist. Neck reveals no JVD, carotid bruits, or thyromegaly. CHEST EXAMINATION: Trachea is central. Symmetrical expansion. Bibasilar diminished sounds.. CARDIAC: Normal S1, S2 with no gallops. No murmurs ABDOMEN: Soft. Bowel sounds present. Nontender. No organomegaly. No abdominal bruits. Extremities: Right lower extremity minimal swelling below the knee and mottling of the skin. Cold and clammy skin.. No clubbing or cyanosis Neurologically awake, alert, oriented x 1-2. Patient is able to move extremities while in bed. No gross focal deficits noted Skin: No rash or skin lesions. Psychiatric: Coperative. Could not be assessed completely. Musculoskeletal: No joint swelling or deformity. Results CBC & Chem 7: 07/24/22 04:19 07/24/22 04:19 Labs: Abnormal Lab Results - Last 24 Hours (Table) 07/23/22 07/23/22 07/23/22 Range/Units 13:30 13:30 13:30 WBC (3.8-10.6) k/uL Hgb (13.0-17.5) gm/dL Neutrophils # (1.3-7.7) k/uL Lymphocytes # (1.0-4.8) k/uL Lymphocytes # (Manual) 0.14 L (1.0-4.8) k/uL Metamyelocytes # (Man) 0.07 H (0) k/uL Chloride (98-107) mmol/L Carbon Dioxide (22-30) mmol/L BUN 25 H (9-20) mg/dL Glucose 158 H (74-99) mg/dL POC Glucose (mg/dL) (70-110) mg/dL Plasma Lactic Acid Be (0.7-2.0) mmol/L Total Protein 6.0 L (6.3-8.2) g/dL Albumin 3.3 L (3.5-5.0) g/dL TSH (0.465-4.680) mIU/L Urine Protein 1+ H (Negative) Urine Glucose (UA) 4+ H (Negative) Urine Ketones Trace H (Negative) Urine Blood Large H (Negative) Ur Leukocyte Esterase Large H (Negative) Urine RBC 37 H (0-5) /hpf Urine WBC 167 H (0-5) /hpf Urine WBC Clumps Occasional H (None) /hpf Urine Bacteria Many H (None) /hpf Urine Mucus Occasional H (None) /hpf 07/23/22 07/23/22 07/23/22 Range/Units 13:30 19:07 22:42 WBC (3.8-10.6) k/uL Hgb (13.0-17.5) gm/dL Neutrophils # (1.3-7.7) k/uL Lymphocytes # (1.0-4.8) k/uL Lymphocytes # (Manual) (1.0-4.8) k/uL Metamyelocytes # (Man) (0) k/uL Chloride (98-107) mmol/L Carbon Dioxide (22-30) mmol/L BUN (9-20) mg/dL Glucose (74-99) mg/dL POC Glucose (mg/dL) (70-110) mg/dL Plasma Lactic Acid Be 4.6 H* 5.2 H* 4.0 H* (0.7-2.0) mmol/L Total Protein (6.3-8.2) g/dL Albumin (3.5-5.0) g/dL TSH (0.465-4.680) mIU/L Urine Protein (Negative) Urine Glucose (UA) (Negative) Urine Ketones (Negative) Urine Blood (Negative) Ur Leukocyte Esterase (Negative) Urine RBC (0-5) /hpf Urine WBC (0-5) /hpf Urine WBC Clumps (None) /hpf Urine Bacteria (None) /hpf Urine Mucus (None) /hpf 07/24/22 07/24/22 07/24/22 Range/Units 00:13 01:22 04:19 WBC 19.4 H (3.8-10.6) k/uL Hgb 12.8 L (13.0-17.5) gm/dL Neutrophils # 18.0 H (1.3-7.7) k/uL Lymphocytes # 0.4 L (1.0-4.8) k/uL Lymphocytes # (Manual) (1.0-4.8) k/uL Metamyelocytes # (Man) (0) k/uL Chloride (98-107) mmol/L Carbon Dioxide (22-30) mmol/L BUN (9-20) mg/dL Glucose (74-99) mg/dL POC Glucose (mg/dL) 115 H (70-110) mg/dL Plasma Lactic Acid Be 3.8 H* (0.7-2.0) mmol/L Total Protein (6.3-8.2) g/dL Albumin (3.5-5.0) g/dL TSH (0.465-4.680) mIU/L Urine Protein (Negative) Urine Glucose (UA) (Negative) Urine Ketones (Negative) Urine Blood (Negative) Ur Leukocyte Esterase (Negative) Urine RBC (0-5) /hpf Urine WBC (0-5) /hpf Urine WBC Clumps (None) /hpf Urine Bacteria (None) /hpf Urine Mucus (None) /hpf 07/24/22 07/24/22 07/24/22 Range/Units 04:19 04:19 06:47 WBC (3.8-10.6) k/uL Hgb (13.0-17.5) gm/dL Neutrophils # (1.3-7.7) k/uL Lymphocytes # (1.0-4.8) k/uL Lymphocytes # (Manual) (1.0-4.8) k/uL Metamyelocytes # (Man) (0) k/uL Chloride 112 H (98-107) mmol/L Carbon Dioxide 19 L (22-30) mmol/L BUN 25 H (9-20) mg/dL Glucose 145 H (74-99) mg/dL POC Glucose (mg/dL) 152 H (70-110) mg/dL Plasma Lactic Acid Be 3.4 H* (0.7-2.0) mmol/L Total Protein (6.3-8.2) g/dL Albumin (3.5-5.0) g/dL TSH 0.149 L (0.465-4.680) mIU/L Urine Protein (Negative) Urine Glucose (UA) (Negative) Urine Ketones (Negative) Urine Blood (Negative) Ur Leukocyte Esterase (Negative) Urine RBC (0-5) /hpf Urine WBC (0-5) /hpf Urine WBC Clumps (None) /hpf Urine Bacteria (None) /hpf Urine Mucus (None) /hpf 07/24/22 Range/Units 07:32 WBC (3.8-10.6) k/uL Hgb (13.0-17.5) gm/dL Neutrophils # (1.3-7.7) k/uL Lymphocytes # (1.0-4.8) k/uL Lymphocytes # (Manual) (1.0-4.8) k/uL Metamyelocytes # (Man) (0) k/uL Chloride (98-107) mmol/L Carbon Dioxide (22-30) mmol/L BUN (9-20) mg/dL Glucose (74-99) mg/dL POC Glucose (mg/dL) (70-110) mg/dL Plasma Lactic Acid Be 3.5 H* (0.7-2.0) mmol/L Total Protein (6.3-8.2) g/dL Albumin (3.5-5.0) g/dL TSH (0.465-4.680) mIU/L Urine Protein (Negative) Urine Glucose (UA) (Negative) Urine Ketones (Negative) Urine Blood (Negative) Ur Leukocyte Esterase (Negative) Urine RBC (0-5) /hpf Urine WBC (0-5) /hpf Urine WBC Clumps (None) /hpf Urine Bacteria (None) /hpf Urine Mucus (None) /hpf Microbiology - Last 24 Hours (Table) 07/23/22 13:30 Urine Culture - Preliminary Urine,Catheterized Thrombosis Risk Factor Assmnt - DVT/VTE Prophylaxis DVT/VTE Prophylaxis: Pharmacologic Prophylaxis ordered Assessment and Plan Assessment: Septic shock secondary to urinary tract infection. Patient does have history of multiple UTIs including ESBL and is on chronic antibiotic therapy with Keflex. Patient is currently requiring pressor support. Acute hypoxemic respiratory failure requiring 3 L oxygen via nasal cannula. Possible right lower lobe pneumonia Lactic acidosis 4.6 on admission Diabetes type 2 [id number]-rimwugfpt Hypothyroidism Parkinson's disease History of Raynaud's disease and chronic discoloration of the right lower extremity below the knee. Parkinson's disease History of Guillain-Hoffman syndrome Hypothyroidism Obesity with BMI 32.2 DVT prophylaxis with heparin subcu every 8 hourly Plan: Patient is being continued on IV hydration with normal saline. Currently requiring pressor support Levophed and vasopressin. Continue to taper down slowly. Patient will be continued on antibiotics meropenem and also on azithromycin. Follow-up blood cultures and urine culture report. Continue with home medications. Patient is currently in the MICU. Critical care team is on board. Vascular surgery was consulted due to right lower extremity cold clammy and mottled skin. Discussed with the family at bedside in detail. Prognosis is guarded. Time with Patient: Greater than 30
[2022-07-25] MEDS: VASOPRESSIN 60 UNIT in SODIUM CHLORIDE 0.9% 150 ML IV SCH (01:48)
[2022-07-25] MEDS: MEROPENEM 1 GM in SODIUM CHLORIDE 0.9% 100 ML IVPB SCH ×3 (02:55→16:48)
[2022-07-25] MEDS: SODIUM CHLORIDE 0.9% 1,000 ML IV SCH ×3 (05:10→19:58)
[2022-07-25 05:20] LABS: Basophils # (A) 0.1 k/uL (0-0.2); Basophils % (A) 0 %; Eosinophils # (A) 0.3 k/uL (0-0.7); Eosinophils % (A) 2 %; HCT 35.6 % (39.0-53.0); HGB 11.4 gm/dL (13.0-17.5); Hypochromasia Slight; Lymphocytes # (A) 1.1 k/uL (1.0-4.8); Lymphocytes % (A) 8 %; MCH 28.3 pg (25.0-35.0); MCV 88.4 fL (80.0-100.0); Monocytes # (A) 0.6 k/uL (0-1.0); Monocytes % (A) 5 %; Neutrophils # (A) 10.3 k/uL (1.3-7.7); Neutrophils % (A) 82 %; Platelet Count 113 k/uL (150-450); RBC 4.03 m/uL (4.30-5.90); RDW 15.4 % (11.5-15.5); WBC 12.6 k/uL (3.8-10.6)
[2022-07-25 05:39] LABS: African American GFR (CKD) >90 (>60 ml/min/1.73 sqM); Anion Gap 6 mmol/L; Blood Urea Nitrogen 17 mg/dL (9-20); Calcium 9.3 mg/dL (8.4-10.2); Carbon Dioxide 23 mmol/L (22-30); Chloride 110 mmol/L (98-107); Glucose 80 mg/dL (74-99); Non-African American GFR(CKD) 89 (>60 ml/min/1.73 sqM); Potassium 3.3 mmol/L (3.5-5.1); Sodium 139 mmol/L (137-145)
[2022-07-25 06:44] LABS: Glucose,Whole Blood 80 mg/dL (70-110)
[2022-07-25] MEDS: INSULIN ASPART (NovoLOG) 100 UNIT/ML VIAL SQ SCH ×4 (06:46→19:59)
[2022-07-25] MEDS: LEVOTHYROXINE 75 MCG TAB PO SCH (06:51)
[2022-07-25] MEDS ORDERED: Potassium Replacement Protocol 1 EACH MISC MISCELLANE PRN (07:50)
[2022-07-25] MEDS: CARBIDOPA-LEVODOPA 25-100 MG 1 EACH TAB PO SCH ×3 (08:01→20:35)
[2022-07-25] MEDS: HEPARIN SODIUM,PORCINE/PF 5,000 UNIT/0.5 ML SYRINGE SQ SCH ×2 (08:01→20:35)
[2022-07-25] MEDS: TAMSULOSIN 0.4 MG CAP.ER.24H PO SCH (08:01)
[2022-07-25] MEDS: PREGABALIN 75 MG CAP PO SCH ×2 (08:01→20:35)
[2022-07-25] MEDS: POTASSIUM CHLORIDE ER 20 MEQ TAB.ER PO SCH ×4 (08:02→13:49)
[2022-07-25] MEDS: PANTOPRAZOLE 40 MG/10 ML VIAL IV SCH (08:02)
[2022-07-25] MEDS: AZITHROMYCIN 500 MG TAB PO SCH (08:02)
--- NOTE | 2022-07-25 09:05 | P.PN ---
Subjective Progress Note Date: 07/25/22 Patient was seen and examined today as a follow-up. Yesterday vascular surgery was consulted for concerns for right lower extremity coolness with purple mottling. Patient remains in the ICU for sepsis. He denies any pain in the right or left lower extremity. I no acute changes through the night. Objective - Vital Signs Vital signs: Vital Signs Temp 98.9 F 07/25/22 04:00 Pulse 66 07/25/22 07:00 Resp 12 07/25/22 07:00 BP 102/60 07/25/22 07:00 Pulse Ox 94 L 07/25/22 07:00 FiO2 Intake & Output 07/24/22 07/25/22 07/25/22 18:59 06:59 18:59 Intake Total 3510.577 1878.039 130 Output Total 1680 815 60 Balance 1452.129 0210.039 70 Weight 99.6 kg Intake: IV 1430 130 Sodium Chloride 0.9% 1, 1430 130 000 ml @ 130 mls/hr IV . Q7H42M [facility] Rx#:[id number] Intake, IV Titration 1810.577 448.039 Amount Magnesium Sulfate-D5w Pmx 100 1 gm In Dextrose/Water 1 100ml.bag @ 100 mls/hr IVPB ONCE [facility] Rx#: [id number] Meropenem 1 gm In Sodium 100 200 Chloride 0.9% 100 ml @ 33 .3 mls/hr IVPB Q8H [facility] Rx #:[id number] Norepinephrine 32 mg In 50.577 Sodium Chloride 0.9% 218 ml @ 0.03 MCG/KG/MIN 1.32 mls/hr IV .Q24H [facility] Rx#: [id number] Sodium Chloride 0.9% 1, 1560 130 000 ml @ 130 mls/hr IV . Q7H42M [facility] Rx#:[id number] Vasopressin 60 unit In 118.039 Sodium Chloride 0.9% 150 ml @ 0.03 UNITS/MIN 4.59 mls/hr IV .Q24H [facility] Rx#: [id number] Oral 1700 0 Output: Urine 1680 815 60 Other: Voiding Method Indwelling Catheter Indwelling Catheter # Bowel Movements 1 - Exam General appearance: The patient is alert, oriented, appears in no acute distress. HET: Head is normocephalic and atraumatic. Neck: Supple. Extremities: Normal skin color and turgor. Bilateral lower extremities are pink and warm to the touch, with palpable PT and DP pulses. Good capillary refill. Nontender to palpation. Neurological: Alert and oriented. - Labs CBC & Chem 7: 07/25/22 04:41 07/25/22 04:41 Labs: Abnormal Lab Results - Last 24 Hours (Table) 07/24/22 07/24/22 07/24/22 Range/Units 08:57 10:27 11:33 WBC (3.8-10.6) k/uL RBC (4.30-5.90) m/uL Hgb (13.0-17.5) gm/dL Hct (39.0-53.0) % Plt Count (150-450) k/uL Neutrophils # (1.3-7.7) k/uL Potassium (3.5-5.1) mmol/L Chloride (98-107) mmol/L POC Glucose (mg/dL) 191 H (70-110) mg/dL Hemoglobin A1c (0.0-6.0) % Plasma Lactic Acid Be 4.0 H* (0.7-2.0) mmol/L Procalcitonin 84.80 H (0.02-0.09) ng/mL 07/24/22 07/24/22 07/25/22 Range/Units 17:03 20:15 04:41 WBC (3.8-10.6) k/uL RBC (4.30-5.90) m/uL Hgb (13.0-17.5) gm/dL Hct (39.0-53.0) % Plt Count (150-450) k/uL Neutrophils # (1.3-7.7) k/uL Potassium (3.5-5.1) mmol/L Chloride (98-107) mmol/L POC Glucose (mg/dL) 194 H 161 H (70-110) mg/dL Hemoglobin A1c 7.2 H (0.0-6.0) % Plasma Lactic Acid Be (0.7-2.0) mmol/L Procalcitonin (0.02-0.09) ng/mL 07/25/22 07/25/22 Range/Units 04:41 04:41 WBC 12.6 H (3.8-10.6) k/uL RBC 4.03 L (4.30-5.90) m/uL Hgb 11.4 L (13.0-17.5) gm/dL Hct 35.6 L (39.0-53.0) % Plt Count 113 L (150-450) k/uL Neutrophils # 10.3 H (1.3-7.7) k/uL Potassium 3.3 L (3.5-5.1) mmol/L Chloride 110 H (98-107) mmol/L POC Glucose (mg/dL) (70-110) mg/dL Hemoglobin A1c (0.0-6.0) % Plasma Lactic Acid Be (0.7-2.0) mmol/L Procalcitonin (0.02-0.09) ng/mL Microbiology - Last 24 Hours (Table) 07/23/22 13:20 Blood Culture - Preliminary Blood 07/23/22 13:35 Blood Culture - Preliminary Blood 07/23/22 13:30 Urine Culture - Preliminary Urine,Catheterized Gram Neg Bacilli Assessment and Plan Assessment: 1. Cool right lower extremity with discoloration, resolved 2. Raynaud disease 3. Sepsis with Septic shock 4. Possible right lower lobe pneumonia 5. Acute hypoxemic respiratory failure secondary to above 6. Diabetes mellitus with peripheral neuropathy 7. Parkinson's disease 8. BPH 9. History of Guillain Hoffman syndrome Plan: Patient with good palpable bilateral DP pulses. Patient does have a history of Raynauds and Parkinson's disease. Likely microvascular related to Raynaud s/Parkinson's disease. Symptoms have resolved completely today. Venous duplex negative for DVT. Apply warm blanket to right lower extremity as needed, no indication for any vascular surgical intervention. Thank you for this consultation we will sign off at this time. The impression and plan of care has been dictated as directed. Dr. Gerardo I performed a history and examination of this patient, discussed the same with the dictator. I agree with the dictator's note ,documented as a scribe. Any additional findings or plans will be noted.
--- NOTE | 2022-07-25 10:00 | XR ---
EXAMINATION TYPE: XR chest 1V portable DATE OF EXAM: 07/25/2022 5:42 AM COMPARISON: Chest radiograph from one day prior. TECHNIQUE: XR chest 1V portable Frontal view of the chest. CLINICAL INDICATION:Male, 72 years old with history of pneumonia; FINDINGS: Lungs/Pleura: Bibasilar atelectasis. No evidence for pneumothorax, pleural effusion or focal consolid ation. Pulmonary vascularity: Pulmonary vascular congestion. Heart/mediastinum: Cardiomediastinal silhouette is enlarged and stable. Musculoskeletal: No acute osseous pathology. IMPRESSION: Stable bibasilar atelectasis and/or infiltrate.
--- NOTE | 2022-07-25 10:47 | P.PN ---
Subjective Progress Note Date: 07/25/22 I'm seeing this patient in consultation today 07/24/2022 in the emergency room for suspected abscess and septic shock. Patient is a 72-year-old white male who suffers from frequent UTIs with previous ESBL producing organisms. Patient does reportedly follow-up with urologist, and is on chronic Keflex. He also has a history of BPH, Parkinson's, diabetes mellitus type 2, and gullian-barre syndrome. Patient apparently presented to the emergency room yesterday afternoon via EMS for altered mental status. The patient himself is a poor historian. He is confused and falls back asleep without verbal stimulation. Apparently, the patient's last known well time was 9 AM yesterday morning. A noncontrast brain CT ruled out any acute intracranial process. Chest x-ray showed right lower lobe airspace opacities which could represent summation of vasculature versus pneumonia. Urinalysis shows evidence of UTI. Lactic acid level 5.2 and is down to 4 after fluid resuscitation with a total of 3 L normal saline. Patient was still hypotensive after fluid resuscitation, and was started on norepinephrine which is currently infusing at 0.2 mcg/kg/m through a right IJ triple-lumen central line catheter. Patient's blood pressure is currently 73/48 mmhg. He is currently lying in bed, on 3L nasal cannula, o xygenating at 94%. CBC on arrival shows a WBC count of 6.8, hemoglobin 14.3, hematocrit 44.4, platelets 151,000. BMP shows a sodium 139, potassium 3.8, chloride 107, serum CO2 22, BUN 25, creatinine 1.1, glucose 158. Normal saline is infusing at 130 ml/hr. Appears to be making good urine output. Blood and urine cultures are pending. Currently empirically covered on azithromycin and Rocephin. Negative for influenza, RSV, COVID-19. He is febrile with a T-max of 101.8F. Patient will be transferred to the intensive care unit once bed available. The patient is seen today 07/25/2022 in follow-up in the intensive care unit. He is currently resting comfortably in bed. Awake and alert in no acute distress. His pressors have been options approximately 1 AM. He is currently maintaining O2 saturations in the 90s on room air. He has normal saline at 130 MLS per hour. He is continued on meropenem. Urine culture revealing gram- negative bacilli. Blood culture revealing no growth. White count 12.6. Hemoglobin 11.4. Platelets 113. Sodium 139. Potassium 3.3. Bicarb 23. BUN 17. Creatinine 0.83. Blood sugar 159. Hemoglobin A1c 7.2. Heparin for DVT prophylaxis. Objective - Vital Signs Vital signs: Vital Signs Temp 98.2 F 07/25/22 08:00 Pulse 74 07/25/22 10:00 Resp 4 L 07/25/22 10:00 BP 92/57 07/25/22 10:00 Pulse Ox 95 07/25/22 10:07 FiO2 Intake & Output 07/24/22 07/25/22 07/25/22 18:59 06:59 18:59 Intake Total 3510.577 1878.039 620 Output Total 1680 815 255 Balance 1638.771 1811.039 365 Weight 99.6 kg Intake: IV 1430 520 Sodium Chloride 0.9% 1, 1430 520 000 ml @ 130 mls/hr IV . Q7H42M [facility] Rx#:[id number] Intake, IV Titration 1810.577 448.039 100 Amount Magnesium Sulfate-D5w Pmx 100 1 gm In Dextrose/Water 1 100ml.bag @ 100 mls/hr IVPB ONCE ONE Rx#: [id number] Meropenem 1 gm In Sodium 100 200 100 Chloride 0.9% 100 ml @ 33 .3 mls/hr IVPB Q8H [facility] Rx #:[id number] Norepinephrine 32 mg In 50.577 Sodium Chloride 0.9% 218 ml @ 0.03 MCG/KG/MIN 1.32 mls/hr IV .Q24H [facility] Rx#: [id number] Sodium Chloride 0.9% 1, 1560 130 000 ml @ 130 mls/hr IV . Q7H42M [facility] Rx#:[id number] Vasopressin 60 unit In 118.039 Sodium Chloride 0.9% 150 ml @ 0.03 UNITS/MIN 4.59 mls/hr IV .Q24H [facility] Rx#: [id number] Oral 1700 0 Output: Urine 1680 815 255 Other: Voiding Method Indwelling Catheter Indwelling Catheter Indwelling Catheter # Bowel Movements 1 - Exam GENERAL EXAM: Arousable, 72-year-old male, on room air, answer simple questions. HEAD: Normocephalic and atraumatic EYES: Normal reaction of pupils, equal size. NOSE: Clear with pink turbinates. THROAT: No erythema or exudates. NECK: No masses, no JVD. Right IJ triple-lumen central line catheter sutured in place CHEST: No chest wall deformity. LUNGS: Equal air entry with scattered crackles. No wheeze, rhonchi or focal dullness. CVS: S1 and S2 normal with no audible murmur, regular rhythm. No extra heart sounds ABDOMEN: No hepatosplenomegaly, active bowel sounds, no guarding or rigidity. SPINE: No scoliosis or deformity SKIN: No rashes CENTRAL NERVOUS SYSTEM: Drowsy, without focal deficits, tone is normal in all 4 extremities. EXTREMITIES: There is no peripheral edema, clubbing, or cyanosis. Peripheral pulses are intact. - Labs CBC & Chem 7: 07/25/22 04:41 07/25/22 04:41 Labs: Abnormal Lab Results - Last 24 Hours (Table) 07/24/22 07/24/22 07/24/22 Range/Units 08:57 10:27 11:33 WBC (3.8-10.6) k/uL RBC (4.30-5.90) m/uL Hgb (13.0-17.5) gm/dL Hct (39.0-53.0) % Plt Count (150-450) k/uL Neutrophils # (1.3-7.7) k/uL Potassium (3.5-5.1) mmol/L Chloride (98-107) mmol/L POC Glucose (mg/dL) 191 H (70-110) mg/dL Hemoglobin A1c (0.0-6.0) % Plasma Lactic Acid Be 4.0 H* (0.7-2.0) mmol/L Procalcitonin 84.80 H (0.02-0.09) ng/mL 07/24/22 07/24/22 07/25/22 Range/Units 17:03 20:15 04:41 WBC (3.8-10.6) k/uL RBC (4.30-5.90) m/uL Hgb (13.0-17.5) gm/dL Hct (39.0-53.0) % Plt Count (150-450) k/uL Neutrophils # (1.3-7.7) k/uL Potassium (3.5-5.1) mmol/L Chloride (98-107) mmol/L POC Glucose (mg/dL) 194 H 161 H (70-110) mg/dL Hemoglobin A1c 7.2 H (0.0-6.0) % Plasma Lactic Acid Be (0.7-2.0) mmol/L Procalcitonin (0.02-0.09) ng/mL 07/25/22 07/25/22 Range/Units 04:41 04:41 WBC 12.6 H (3.8-10.6) k/uL RBC 4.03 L (4.30-5.90) m/uL Hgb 11.4 L (13.0-17.5) gm/dL Hct 35.6 L (39.0-53.0) % Plt Count 113 L (150-450) k/uL Neutrophils # 10.3 H (1.3-7.7) k/uL Potassium 3.3 L (3.5-5.1) mmol/L Chloride 110 H (98-107) mmol/L POC Glucose (mg/dL) (70-110) mg/dL Hemoglobin A1c (0.0-6.0) % Plasma Lactic Acid Be (0.7-2.0) mmol/L Procalcitonin (0.02-0.09) ng/mL Microbiology - Last 24 Hours (Table) 07/23/22 13:20 Blood Culture - Preliminary Blood 07/23/22 13:35 Blood Culture - Preliminary Blood 07/23/22 13:30 Urine Culture - Preliminary Urine,Catheterized Gram Neg Bacilli Assessment and Plan Assessment: Sepsis and septic shock possibly secondary UTI. Suffers from frequent UTIs with previous ESBL producing organisms. Current urine culture positive for gram- negative bacilli. Patient does reportedly follow-up with urologist, and is on chronic Keflex Acute hypoxemic respiratory failure, recovered and on room air Lactic acidemia, improving BPH Diabetes mellitus type 2, non-insulin dependent Hypothyroidism Parkinson's disease Diabetic neuropathy History of Gullian Rosepine syndrome Obesity with a BMI of 31 Plan: The patient was seen and evaluated Medications and labs reviewed Off pressors since 1 AM Stable and on room air Continued on meropenem for UTI Transfer to the regular medical floor We'll continue to follow I have personally seen and examined the patient, performed the documentation and the assessment and plan as written. Number of minutes spent on the visit: 10.
[2022-07-25 11:11] LABS: Glucose,Whole Blood 99 mg/dL (70-110)
--- NOTE | 2022-07-25 14:28 | P.PN ---
Subjective Progress Note Date: 07/25/22 Principal diagnosis: Sepsis/UTI Patient is a 72-year-old male with a past medical history significant for diabetes mellitus history of frequent UTI Guillain-Hoffman syndrome type 2 diabetes mellitus BPH patient was brought into the ER for evaluation of mental status changes , patient diagnosed with sepsis admitted to ICU concerning for UTI On today's evaluation that is 07/25/2022, the patient is afebrile patient is breathing comfortably on a 2 L nasal cannula oxygen, the patient is hemodynamically stable off the pressor support to the nursing staff patient denies having any chest pain or shortness of cough no abdominal pain and no diarrhea reported Objective - Vital Signs Vital signs: Vital Signs Temp 98.2 F 07/25/22 08:00 Pulse 74 07/25/22 10:00 Resp 4 L 07/25/22 10:00 BP 92/57 07/25/22 10:00 Pulse Ox 95 07/25/22 10:07 FiO2 Intake & Output 07/24/22 07/25/22 07/25/22 18:59 06:59 18:59 Intake Total 3510.577 1878.039 620 Output Total 1680 815 255 Balance 1051.970 2359.039 365 Weight 99.6 kg Intake: IV 1430 520 Sodium Chloride 0.9% 1, 1430 520 000 ml @ 130 mls/hr IV . Q7H42M [facility] Rx#:[id number] Intake, IV Titration 1810.577 448.039 100 Amount Magnesium Sulfate-D5w Pmx 100 1 gm In Dextrose/Water 1 100ml.bag @ 100 mls/hr IVPB ONCE ONE Rx#: [id number] Meropenem 1 gm In Sodium 100 200 100 Chloride 0.9% 100 ml @ 33 .3 mls/hr IVPB Q8H [facility] Rx #:[id number] Norepinephrine 32 mg In 50.577 Sodium Chloride 0.9% 218 ml @ 0.03 MCG/KG/MIN 1.32 mls/hr IV .Q24H [facility] Rx#: [id number] Sodium Chloride 0.9% 1, 1560 130 000 ml @ 130 mls/hr IV . Q7H42M [facility] Rx#:[id number] Vasopressin 60 unit In 118.039 Sodium Chloride 0.9% 150 ml @ 0.03 UNITS/MIN 4.59 mls/hr IV .Q24H [facility] Rx#: [id number] Oral 1700 0 Output: Urine 1680 815 255 Other: Voiding Method Indwelling Catheter Indwelling Catheter Indwelling Catheter # Bowel Movements 1 - Exam GENERAL DESCRIPTION: An elderly male lying in bed in no distress RESPIRATORY SYSTEM: Unlabored breathing , decreased breath sounds at bases HEART: S1 S2 regular rate and rhythm , ABDOMEN: Soft , no tenderness EXTREMITIES: No edema feet - Labs CBC & Chem 7: 07/25/22 04:41 07/25/22 11:34 Labs: Abnormal Lab Results - Last 24 Hours (Table) 07/24/22 07/24/22 07/24/22 Range/Units 08:57 17:03 20:15 WBC (3.8-10.6) k/uL RBC (4.30-5.90) m/uL Hgb (13.0-17.5) gm/dL Hct (39.0-53.0) % Plt Count (150-450) k/uL Neutrophils # (1.3-7.7) k/uL Potassium (3.5-5.1) mmol/L Chloride (98-107) mmol/L POC Glucose (mg/dL) 194 H 161 H (70-110) mg/dL Hemoglobin A1c (0.0-6.0) % Procalcitonin 84.80 H (0.02-0.09) ng/mL 07/25/22 07/25/22 07/25/22 Range/Units 04:41 04:41 04:41 WBC 12.6 H (3.8-10.6) k/uL RBC 4.03 L (4.30-5.90) m/uL Hgb 11.4 L (13.0-17.5) gm/dL Hct 35.6 L (39.0-53.0) % Plt Count 113 L (150-450) k/uL Neutrophils # 10.3 H (1.3-7.7) k/uL Potassium 3.3 L (3.5-5.1) mmol/L Chloride 110 H (98-107) mmol/L POC Glucose (mg/dL) (70-110) mg/dL Hemoglobin A1c 7.2 H (0.0-6.0) % Procalcitonin (0.02-0.09) ng/mL Microbiology - Last 24 Hours (Table) 07/23/22 13:20 Blood Culture - Preliminary Blood 07/23/22 13:35 Blood Culture - Preliminary Blood 07/23/22 13:30 Urine Culture - Preliminary Urine,Catheterized Gram Neg Bacilli Assessment and Plan (1) UTI (urinary tract infection) Current Visit: Yes Status: Acute Code(s): N39.0 - URINARY TRACT INFECTION, SITE NOT SPECIFIED SNOMED Code(s): 90639632 (2) Sepsis Current Visit: No Status: Acute Code(s): A41.9 - SEPSIS, UNSPECIFIED ORGANISM SNOMED Code(s): 22427858 Plan: 1patient presented to hospital with sepsis in this patient with a fever tachycardia hypotension elevated lactic acid requiring fluid and pressor support significantly positive UA likely source is urinary tract infection underlying pneumonia less likely but not entirely excluded, patient did have a history of ESBL pathogen infection 2-patient seemed to have some clinical improvement urine cultures currently growing gram-negative with an status pending, patient to continue meropenem 1 g every 8 hours, while waiting for the cultures to finalize Time with Patient: Less than 30
[2022-07-25 16:37] LABS: Glucose,Whole Blood 127 mg/dL (70-110)
--- NOTE | 2022-07-25 19:41 | P.PN ---
Subjective Progress Note Date: 07/25/22 Patient is a 72-year-old male with a known history of diabetes type 2 [id number], hypothyroidism, Parkinson's disease, history of Guillain- Hoffman syndrome, history of right lower extremity venous disease and prior history of multiple UTIs including ESBL UTI was brought to the hospital by EMS due to altered mental status and lethargy. Patient is a poor historian. According to his daughter patient was found to be lethargic and felt very weak when she noticed him around 9 AM yesterday morning. Patient was talking to her before she went to making breakfast. When she came back she was found to be pale and lips turned blue and also his extremities became cool and clammy. EMS was called and patient was brought to the hospital. He was noted to be febrile by EMS. On admission Tmax was 101.3. Chest x-ray showed right lower lobe airspace opacities which could represent summation of vasculature versus pneumonia.. Patient was tachycardic and hypotensive and received fluid boluses. Patient was started norepinephrine drip and was transferred to MICU. Patient is currently on 2 pressors. Laboratory data on admission showed WBC 6.8 hemoglobin 14.3 and platelets 151 Sodium 139 potassium 3.8 chloride 107 bicarb is 22 BUN 25 and creatinine 1.21 and lactic acid 4.6. Urinalysis showed 4+ glucose 1+ protein nitrite negative large leukocyte esterase with elevated RBCs and WBCs. Influenza, RSV and COVID-19 PCR not detected. 07/25/2022 Patient is currently in the MICU. Resting in the bed comfortably. Awake alert and oriented x3. Mentation is much improved today. Currently on room air. No complaints of chest pain or worsening shortness of breath. No nausea vomiting abdominal pain or diarrhea. No cough or sputum production. Patient is off pressor support. Currently on normal saline at 130 cc/h. Systolic blood pressure is improving to upper 90s. Urine culture showed gram-negative bacilli. Patient remains on antibiotics meropenem. Today's chest x-ray showed stable bibasilar atelectasis and/or infiltrate. Laboratory data showed WBC trending down to 12.6 hemoglobin 11.4 and platelets 113 sodium 139 potassium 3.3 chloride 110 bicarb is 23 BUN 17 and creatinine 0.83 and blood sugar is 80 and A1c of 7.2. Current medications reviewed. Objective - Vital Signs Vital signs: Vital Signs Temp 98.2 F 07/25/22 08:00 Pulse 74 07/25/22 10:00 Resp 4 L 07/25/22 10:00 BP 92/57 07/25/22 10:00 Pulse Ox 95 07/25/22 10:07 FiO2 Intake & Output 07/24/22 07/25/22 07/25/22 18:59 06:59 18:59 Intake Total 3510.577 1878.039 620 Output Total 1680 815 255 Balance 5903.592 8044.039 365 Weight 99.6 kg Intake: IV 1430 520 Sodium Chloride 0.9% 1, 1430 520 000 ml @ 130 mls/hr IV . Q7H42M [facility] Rx#:[id number] Intake, IV Titration 1810.577 448.039 100 Amount Magnesium Sulfate-D5w Pmx 100 1 gm In Dextrose/Water 1 100ml.bag @ 100 mls/hr IVPB ONCE ONE Rx#: [id number] Meropenem 1 gm In Sodium 100 200 100 Chloride 0.9% 100 ml @ 33 .3 mls/hr IVPB Q8H [facility] Rx #:[id number] Norepinephrine 32 mg In 50.577 Sodium Chloride 0.9% 218 ml @ 0.03 MCG/KG/MIN 1.32 mls/hr IV .Q24H [facility] Rx#: [id number] Sodium Chloride 0.9% 1, 1560 130 000 ml @ 130 mls/hr IV . Q7H42M [facility] Rx#:[id number] Vasopressin 60 unit In 118.039 Sodium Chloride 0.9% 150 ml @ 0.03 UNITS/MIN 4.59 mls/hr IV .Q24H [facility] Rx#: [id number] Oral 1700 0 Output: Urine 1680 815 255 Other: Voiding Method Indwelling Catheter Indwelling Catheter Indwelling Catheter # Bowel Movements 1 - Exam PHYSICAL EXAMINATION: Patient is lying in the. No acute distress, awake alert and oriented x 2- 3 HEENT: Normocephalic. Neck is supple. Pupils reactive. Nostrils clear. Oral cavity is moist. Neck reveals no JVD, carotid bruits, or thyromegaly. CHEST EXAMINATION: Trachea is central. Symmetrical expansion. Bibasilar diminished sounds.. No wheezing or rhonchi. CARDIAC: Normal S1, S2 with no gallops. No murmurs ABDOMEN: Soft. Bowel sounds present. Nontender. No organomegaly. No abdominal bruits. Extremities: Right lower extremity minimal swelling below the knee and mottling of the skin. Cold and clammy skin.. No clubbing or cyanosis Neurologically awake, alert, oriented x 2-3. Patient is able to move extremities while in bed. No gross focal deficits noted Skin: No rash or skin lesions. Psychiatric: Coperative. . Musculoskeletal: No joint swelling or deformity. - Labs CBC & Chem 7: 07/25/22 04:41 07/25/22 11:34 Labs: Abnormal Lab Results - Last 24 Hours (Table) 07/24/22 07/24/22 07/24/22 Range/Units 08:57 17:03 20:15 WBC (3.8-10.6) k/uL RBC (4.30-5.90) m/uL Hgb (13.0-17.5) gm/dL Hct (39.0-53.0) % Plt Count (150-450) k/uL Neutrophils # (1.3-7.7) k/uL Potassium (3.5-5.1) mmol/L Chloride (98-107) mmol/L POC Glucose (mg/dL) 194 H 161 H (70-110) mg/dL Hemoglobin A1c (0.0-6.0) % Procalcitonin 84.80 H (0.02-0.09) ng/mL 07/25/22 07/25/22 07/25/22 Range/Units 04:41 04:41 04:41 WBC 12.6 H (3.8-10.6) k/uL RBC 4.03 L (4.30-5.90) m/uL Hgb 11.4 L (13.0-17.5) gm/dL Hct 35.6 L (39.0-53.0) % Plt Count 113 L (150-450) k/uL Neutrophils # 10.3 H (1.3-7.7) k/uL Potassium 3.3 L (3.5-5.1) mmol/L Chloride 110 H (98-107) mmol/L POC Glucose (mg/dL) (70-110) mg/dL Hemoglobin A1c 7.2 H (0.0-6.0) % Procalcitonin (0.02-0.09) ng/mL Microbiology - Last 24 Hours (Table) 07/23/22 13:20 Blood Culture - Preliminary Blood 07/23/22 13:35 Blood Culture - Preliminary Blood 07/23/22 13:30 Urine Culture - Preliminary Urine,Catheterized Gram Neg Bacilli Assessment and Plan Assessment: Septic shock secondary to urinary tract infection. Patient does have history of multiple UTIs including ESBL and is on chronic antibiotic therapy with Keflex. Patient is off pressor support since 07/25 AM. Acute hypoxemic respiratory failure requiring 3 L oxygen via nasal cannula.--titrtaed down to RA Acute urinary tract infection with gram-negative bacilli Possible right lower lobe pneumonia Lactic acidosis 4.6 on admission Diabetes type 2 [id number] Hypothyroidism Parkinson's disease History of Raynaud's disease and chronic discoloration of the right lower extremity below the knee. Parkinson's disease History of Guillain-Hoffman syndrome Hypothyroidism Obesity with BMI 32.2 DVT prophylaxis with heparin subcu every 8 hourly Plan: Patient is being continued on IV hydration with normal saline. Currently off pressor support Levophed and vasopressin. Patient will be continued on antibiotics meropenem. Follow-up blood cultures and urine culture report showed gram-negative bacilli.. ID is on board. Continue with home medications. Patient is currently in the MICU. Critical care team is on board. Vascular surgery was consulted due to right lower extremity cold clammy and mottled skin. No surgical intervention recommended at this time. Prognosis is guarded. Time with Patient: Greater than 30
[2022-07-25 19:57] LABS: Glucose,Whole Blood 119 mg/dL (70-110)
[2022-07-26] MEDS: MEROPENEM 1 GM in SODIUM CHLORIDE 0.9% 100 ML IVPB SCH ×3 (01:52→17:43)
[2022-07-26] MEDS: SODIUM CHLORIDE 0.9% 1,000 ML IV SCH ×2 (04:18→11:38)
[2022-07-26 04:55] LABS: Basophils % (A) 0 %; Eosinophils # (A) 0.4 k/uL (0-0.7); Eosinophils % (A) 5 %; HCT 29.7 % (39.0-53.0); Lymphocytes # (A) 0.9 k/uL (1.0-4.8); Lymphocytes % (A) 11 %; MCH 27.3 pg (25.0-35.0); MCHC 31.5 g/dL (31.0-37.0); MCV 86.4 fL (80.0-100.0); Mean Platelet Volume 9.8; Monocytes # (A) 0.3 k/uL (0-1.0); Monocytes % (A) 4 %; Neutrophils # (A) 6.4 k/uL (1.3-7.7); Neutrophils % (A) 77 %; Platelet Count 101 k/uL (150-450); RBC 3.44 m/uL (4.30-5.90); RDW 15.3 % (11.5-15.5); WBC 8.3 k/uL (3.8-10.6)
[2022-07-26 04:58] LABS: HGB 9.4 gm/dL (13.0-17.5)
[2022-07-26 05:09] LABS: African American GFR (CKD) >90 (>60 ml/min/1.73 sqM); Anion Gap 3 mmol/L; Blood Urea Nitrogen 9 mg/dL (9-20); Calcium 7.5 mg/dL (8.4-10.2); Carbon Dioxide 21 mmol/L (22-30); Chloride 116 mmol/L (98-107); Glucose 85 mg/dL (74-99); Non-African American GFR(CKD) >90 (>60 ml/min/1.73 sqM); Potassium 3.2 mmol/L (3.5-5.1); Sodium 140 mmol/L (137-145)
[2022-07-26] MEDS: INSULIN ASPART (NovoLOG) 100 UNIT/ML VIAL SQ SCH ×4 (06:44→22:33)
[2022-07-26 06:45] LABS: Glucose,Whole Blood 104 mg/dL (70-110)
[2022-07-26] MEDS: LEVOTHYROXINE 75 MCG TAB PO SCH (06:45)
[2022-07-26] MEDS: PANTOPRAZOLE 40 MG TABLET PO SCH (06:45)
--- NOTE | 2022-07-26 08:04 | US ---
EXAMINATION TYPE: US kidneys/renal and bladder DATE OF EXAM: 07/26/2022 COMPARISON: CT urogram September 25, 2021 CLINICAL INDICATION: Male, 72 years old with history of uti and bacteremia; ICU patient with UTI EXAM MEASUREMENTS: Right Kidney: 11.5 x 5.3 x 6.2 cm Left Kidney: 11.7 x 5.2 x 6.5 cm Right Kidney: No hydronephrosis or masses seen Left Kidney: No hydronephrosis or masses seen Bladder: not distended There is no evidence for hydronephrosis at this point in time. No nephrolithiasis is seen. No rylie s are identified. The urinary bladder is nondistended. IMPRESSION: No hydronephrosis is seen bilaterally.
[2022-07-26] MEDS: CARBIDOPA-LEVODOPA 25-100 MG 1 EACH TAB PO SCH ×3 (09:09→22:39)
[2022-07-26] MEDS: HEPARIN SODIUM,PORCINE/PF 5,000 UNIT/0.5 ML SYRINGE SQ SCH ×2 (09:09→22:39)
[2022-07-26] MEDS: PREGABALIN 75 MG CAP PO SCH ×2 (09:09→22:39)
[2022-07-26] MEDS: TAMSULOSIN 0.4 MG CAP.ER.24H PO SCH (09:10)
[2022-07-26] MEDS: POTASSIUM CHLORIDE ER 20 MEQ TAB.ER PO SCH ×2 (09:10→11:35)
--- NOTE | 2022-07-26 10:39 | P.PN ---
Subjective Progress Note Date: 07/26/22 I'm seeing this patient in consultation today 07/24/2022 in the emergency room for suspected abscess and septic shock. Patient is a 72-year-old white male who suffers from frequent UTIs with previous ESBL producing organisms. Patient does reportedly follow-up with urologist, and is on chronic Keflex. He also has a history of BPH, Parkinson's, diabetes mellitus type 2, and gullian-barre syndrome. Patient apparently presented to the emergency room yesterday afternoon via EMS for altered mental status. The patient himself is a poor historian. He is confused and falls back asleep without verbal stimulation. Apparently, the patient's last known well time was 9 AM yesterday morning. A noncontrast brain CT ruled out any acute intracranial process. Chest x-ray showed right lower lobe airspace opacities which could represent summation of vasculature versus pneumonia. Urinalysis shows evidence of UTI. Lactic acid level 5.2 and is down to 4 after fluid resuscitation with a total of 3 L normal saline. Patient was still hypotensive after fluid resuscitation, and was started on norepinephrine which is currently infusing at 0.2 mcg/kg/m through a right IJ triple-lumen central line catheter. Patient's blood pressure is currently 73/48 mmhg. He is currently lying in bed, on 3L nasal cannula, o xygenating at 94%. CBC on arrival shows a WBC count of 6.8, hemoglobin 14.3, hematocrit 44.4, platelets 151,000. BMP shows a sodium 139, potassium 3.8, chloride 107, serum CO2 22, BUN 25, creatinine 1.1, glucose 158. Normal saline is infusing at 130 ml/hr. Appears to be making good urine output. Blood and urine cultures are pending. Currently empirically covered on azithromycin and Rocephin. Negative for influenza, RSV, COVID-19. He is febrile with a T-max of 101.8F. Patient will be transferred to the intensive care unit once bed available. The patient is seen today 07/25/2022 in follow-up in the intensive care unit. He is currently resting comfortably in bed. Awake and alert in no acute distress. His pressors have been options approximately 1 AM. He is currently maintaining O2 saturations in the 90s on room air. He has normal saline at 130 MLS per hour. He is continued on meropenem. Urine culture revealing gram- negative bacilli. Blood culture revealing no growth. White count 12.6. Hemoglobin 11.4. Platelets 113. Sodium 139. Potassium 3.3. Bicarb 23. BUN 17. Creatinine 0.83. Blood sugar 159. Hemoglobin A1c 7.2. Heparin for DVT prophylaxis. The patient is seen today 07/26/2022 in follow-up in the intensive care unit. He is awake and alert in no acute distress. Maintaining O2 saturations in the 90s on room air. He has normal saline at 130 ML's per hour. Ultrasound of the kidneys revealed no evidence of hydronephrosis. Urine culture positive for E. coli. Blood culture pending. White count 8.3. Hemoglobin 9.4. Platelets 101. Sodium 140. Potassium 3.2. Bicarb 21. BUN 9. Creatinine 0.64. Glucose 85. He is continued on anti-medics in the form of meropenem. Heparin for DVT prophylaxis. Objective - Vital Signs Vital signs: Vital Signs Temp 98.6 F 07/26/22 10:30 Pulse 72 07/26/22 10:30 Resp 16 07/26/22 10:30 BP 122/71 07/26/22 10:30 Pulse Ox 96 07/26/22 10:30 FiO2 Intake & Output 07/25/22 07/26/22 07/26/22 18:59 06:59 18:59 Intake Total 1630 1660 Output Total 1255 950 Balance 375 710 Intake: IV 1430 1560 Sodium Chloride 0.9% 1, 1430 1560 000 ml @ 130 mls/hr IV . Q7H42M [facility] Rx#:[id number] Intake, IV Titration 200 100 Amount Meropenem 1 gm In Sodium 200 100 Chloride 0.9% 100 ml @ 33 .3 mls/hr IVPB Q8H [facility] Rx #:[id number] Output: Urine 1255 950 Other: Voiding Method Indwelling Catheter Indwelling Catheter Indwelling Catheter - Exam GENERAL EXAM: Awake, alert, 72-year-old male, on room air, answer simple questions. HEAD: Normocephalic and atraumatic EYES: Normal reaction of pupils, equal size. NOSE: Clear with pink turbinates. THROAT: No erythema or exudates. NECK: No masses, no JVD. CHEST: No chest wall deformity. LUNGS: Equal air entry with scattered crackles. No wheeze, rhonchi or focal dullness. CVS: S1 and S2 normal with no audible murmur, regular rhythm. No extra heart sounds ABDOMEN: No hepatosplenomegaly, active bowel sounds, no guarding or rigidity. SPINE: No scoliosis or deformity SKIN: No rashes CENTRAL NERVOUS SYSTEM: Drowsy, without focal deficits, tone is normal in all 4 extremities. EXTREMITIES: There is no peripheral edema, clubbing, or cyanosis. Peripheral pulses are intact. - Labs CBC & Chem 7: 07/26/22 04:32 07/26/22 04:32 Labs: Abnormal Lab Results - Last 24 Hours (Table) 07/25/22 07/25/22 07/26/22 Range/Units 16:35 19:55 04:32 RBC 3.44 L (4.30-5.90) m/uL Hgb 9.4 L D (13.0-17.5) gm/dL Hct 29.7 L (39.0-53.0) % Plt Count 101 L (150-450) k/uL Lymphocytes # 0.9 L (1.0-4.8) k/uL Potassium (3.5-5.1) mmol/L Chloride (98-107) mmol/L Carbon Dioxide (22-30) mmol/L Creatinine (0.66-1.25) mg/dL POC Glucose (mg/dL) 127 H 119 H (70-110) mg/dL Calcium (8.4-10.2) mg/dL 07/26/22 Range/Units 04:32 RBC (4.30-5.90) m/uL Hgb (13.0-17.5) gm/dL Hct (39.0-53.0) % Plt Count (150-450) k/uL Lymphocytes # (1.0-4.8) k/uL Potassium 3.2 L (3.5-5.1) mmol/L Chloride 116 H (98-107) mmol/L Carbon Dioxide 21 L (22-30) mmol/L Creatinine 0.64 L (0.66-1.25) mg/dL POC Glucose (mg/dL) (70-110) mg/dL Calcium 7.5 L (8.4-10.2) mg/dL Microbiology - Last 24 Hours (Table) 07/23/22 13:35 Blood Culture - Preliminary Blood 07/23/22 13:20 Blood Culture - Preliminary Blood 07/23/22 13:30 Urine Culture - Final Urine,Catheterized Escherichia coli Assessment and Plan Assessment: Sepsis and septic shock secondary to urinary tract infection with E. coli. Suffers from frequent UTIs with previous ESBL producing organisms. Ultrasound of the kidneys revealed no evidence of hydronephrosis. Patient does reportedly follow-up with urologist, and is on chronic Keflex Acute hypoxemic respiratory failure, recovered and on room air BPH Diabetes mellitus type 2, non-insulin dependent Hypothyroidism Parkinson's disease Diabetic neuropathy History of Gullian Rosemont syndrome Obesity with a BMI of 31 Plan: The patient was seen and evaluated Medications and labs reviewed Stable and on room air Continued on meropenem Transfer to the regular medical floor We'll continue to follow I have personally seen and examined the patient, performed the documentation and the assessment and plan as written. Number of minutes spent on the visit: 10.
[2022-07-26 11:05] LABS: Glucose,Whole Blood 126 mg/dL (70-110)
--- NOTE | 2022-07-26 12:36 | P.PN ---
Subjective Progress Note Date: 07/26/22 Principal diagnosis: Sepsis/UTI Patient is a 72-year-old male with a past medical history significant for diabetes mellitus history of frequent UTI Guillain-Hoffman syndrome type 2 diabetes mellitus BPH patient was brought into the ER for evaluation of mental status changes , patient diagnosed with sepsis admitted to ICU concerning for UTI On today's evaluation that is 07/26/2022, the patient remains to be afebrile patient is breathing comfortably on room air, the patient is hemodynamically stable off the pressor support and has been moved out of the ICU, patient denies having any chest pain or shortness of cough no abdominal pain and no diarrhea reported Objective - Vital Signs Vital signs: Vital Signs Temp 98.6 F 07/26/22 10:30 Pulse 72 07/26/22 10:30 Resp 16 07/26/22 10:30 BP 122/71 07/26/22 10:30 Pulse Ox 96 07/26/22 10:30 FiO2 Intake & Output 07/25/22 07/26/22 07/26/22 18:59 06:59 18:59 Intake Total 1630 1660 Output Total 1255 950 Balance 375 710 Intake: IV 1430 1560 Sodium Chloride 0.9% 1, 1430 1560 000 ml @ 130 mls/hr IV . Q7H42M [facility] Rx#:[id number] Intake, IV Titration 200 100 Amount Meropenem 1 gm In Sodium 200 100 Chloride 0.9% 100 ml @ 33 .3 mls/hr IVPB Q8H [facility] Rx #:[id number] Output: Urine 1255 950 Other: Voiding Method Indwelling Catheter Indwelling Catheter Indwelling Catheter - Exam GENERAL DESCRIPTION: An elderly male lying in bed in no distress RESPIRATORY SYSTEM: Unlabored breathing , decreased breath sounds at bases HEART: S1 S2 regular rate and rhythm , ABDOMEN: Soft , no tenderness EXTREMITIES: No edema feet - Labs CBC & Chem 7: 07/26/22 04:32 07/26/22 04:32 Labs: Abnormal Lab Results - Last 24 Hours (Table) 07/25/22 07/25/22 07/26/22 Range/Units 16:35 19:55 04:32 RBC 3.44 L (4.30-5.90) m/uL Hgb 9.4 L D (13.0-17.5) gm/dL Hct 29.7 L (39.0-53.0) % Plt Count 101 L (150-450) k/uL Lymphocytes # 0.9 L (1.0-4.8) k/uL Potassium (3.5-5.1) mmol/L Chloride (98-107) mmol/L Carbon Dioxide (22-30) mmol/L Creatinine (0.66-1.25) mg/dL POC Glucose (mg/dL) 127 H 119 H (70-110) mg/dL Calcium (8.4-10.2) mg/dL 07/26/22 07/26/22 Range/Units 04:32 11:03 RBC (4.30-5.90) m/uL Hgb (13.0-17.5) gm/dL Hct (39.0-53.0) % Plt Count (150-450) k/uL Lymphocytes # (1.0-4.8) k/uL Potassium 3.2 L (3.5-5.1) mmol/L Chloride 116 H (98-107) mmol/L Carbon Dioxide 21 L (22-30) mmol/L Creatinine 0.64 L (0.66-1.25) mg/dL POC Glucose (mg/dL) 126 H (70-110) mg/dL Calcium 7.5 L (8.4-10.2) mg/dL Microbiology - Last 24 Hours (Table) 07/23/22 13:35 Blood Culture - Preliminary Blood 07/23/22 13:20 Blood Culture - Preliminary Blood 07/23/22 13:30 Urine Culture - Final Urine,Catheterized Escherichia coli Assessment and Plan (1) UTI (urinary tract infection) Current Visit: Yes Status: Acute Code(s): N39.0 - URINARY TRACT INFECTION, SITE NOT SPECIFIED SNOMED Code(s): 70263393 (2) Sepsis Current Visit: No Status: Acute Code(s): A41.9 - SEPSIS, UNSPECIFIED ORGANISM SNOMED Code(s): 45595384 Plan: 1patient presented to hospital with sepsis in this patient with a fever tachycardia hypotension elevated lactic acid requiring fluid and pressor support significantly positive UA likely source is urinary tract infection underlying pneumonia less likely but not entirely excluded, patient did have a history of ESBL pathogen infection 2-patient seemed to have some clinical improvement urine cultures grew ESBL E. coli blood culture had been negative patient is covered with the meropenem he will need midline on discharge and finishing therapy with Invanz
[2022-07-26 16:52] LABS: Glucose,Whole Blood 102 mg/dL (70-110)
[2022-07-26 19:04] LABS: Glucose,Whole Blood 104 mg/dL (70-110)
[2022-07-26] MEDS: CIPROFLOXACIN 0.3% OPHTH SOLN 5 ML BTL BOTH EYES SCH (22:39)
[2022-07-27] MEDS: MEROPENEM 1 GM in SODIUM CHLORIDE 0.9% 100 ML IVPB SCH ×3 (01:41→17:13)
[2022-07-27] MEDS: LEVOTHYROXINE 75 MCG TAB PO SCH (06:11)
[2022-07-27] MEDS: PANTOPRAZOLE 40 MG TABLET PO SCH (06:11)
[2022-07-27] MEDS: SODIUM CHLORIDE 0.9% 1,000 ML IV SCH ×2 (06:11→13:59)
[2022-07-27 06:20] LABS: Glucose,Whole Blood 101 mg/dL (70-110)
[2022-07-27] MEDS: INSULIN ASPART (NovoLOG) 100 UNIT/ML VIAL SQ SCH ×4 (06:44→21:00)
[2022-07-27] MEDS: PREGABALIN 75 MG CAP PO SCH ×2 (08:44→20:59)
[2022-07-27] MEDS: CARBIDOPA-LEVODOPA 25-100 MG 1 EACH TAB PO SCH ×3 (08:45→21:00)
[2022-07-27] MEDS: HEPARIN SODIUM,PORCINE/PF 5,000 UNIT/0.5 ML SYRINGE SQ SCH ×2 (08:45→20:59)
[2022-07-27] MEDS: TAMSULOSIN 0.4 MG CAP.ER.24H PO SCH (08:45)
[2022-07-27] MEDS: CIPROFLOXACIN 0.3% OPHTH SOLN 5 ML BTL BOTH EYES SCH ×2 (08:49→20:59)
[2022-07-27 10:11] LABS: African American GFR (CKD) 104.2 (60.0-200.0); Anion Gap 6.1 mmol/L (10.00-18.00); BUN/Creat Ratio 11.13 Ratio (12.00-20.00); Blood Urea Nitrogen 8.9 mg/dL (9.0-27.0); Calcium 10.2 mg/dL (8.7-10.3); Carbon Dioxide 23.9 mmol/L (20.0-27.5); Non-African American GFR(CKD) 89.9 (60.0-200.0); Potassium 3.8 mmol/L (3.5-5.5)
[2022-07-27 10:16] LABS: Basophils # (A) 0.03 X 10*3/uL (0.00-0.10); Basophils % (A) 0.6 %; Eosinophils # (A) 0.33 X 10*3/uL (0.04-0.35); Eosinophils % (A) 6.1 %; HCT 36.3 % (39.6-50.0); HGB 11.8 g/dL (13.0-17.0); Immature Grans, Automated 1.1 %; Lymphocytes # (A) 1.46 X 10*3/uL (0.90-5.00); Lymphocytes % (A) 27.1 %; MCHC 32.5 g/dL (32.0-37.0); MCV 86.2 fL (80.0-97.0); Mean Platelet Volume 11.2 fL (9.5-12.2); Monocytes % (A) 11.1 %; NRBC Per 100 WBC 0 /100 WBCS (0.0-0.0); Neutrophils # (A) 2.91 X 10*3/uL (1.80-7.70); Platelet Count 132 X 10*3/uL (140-440); RBC 4.21 X 10*6/uL (4.40-5.60); RDW 14.6 % (11.5-14.5); WBC 5.39 X 10*3/uL (4.50-10.00)
[2022-07-27 11:22] LABS: Glucose,Whole Blood 98 mg/dL (70-110)
[2022-07-27 16:51] LABS: Glucose,Whole Blood 107 mg/dL (70-110)
[2022-07-27 20:41] LABS: Glucose,Whole Blood 98 mg/dL (70-110)
[2022-07-28] MEDS: MEROPENEM 1 GM in SODIUM CHLORIDE 0.9% 100 ML IVPB SCH ×3 (01:40→17:46)
[2022-07-28 05:57] LABS: Glucose,Whole Blood 94 mg/dL (70-110)
[2022-07-28] MEDS: INSULIN ASPART (NovoLOG) 100 UNIT/ML VIAL SQ SCH ×4 (06:09→20:55)
[2022-07-28] MEDS: PANTOPRAZOLE 40 MG TABLET PO SCH (06:14)
[2022-07-28] MEDS: LEVOTHYROXINE 75 MCG TAB PO SCH (06:14)
[2022-07-28] MEDS: SODIUM CHLORIDE 0.9% 1,000 ML IV SCH ×2 (06:15→16:18)
[2022-07-28] MEDS: PREGABALIN 75 MG CAP PO SCH ×2 (08:50→20:57)
[2022-07-28] MEDS: CARBIDOPA-LEVODOPA 25-100 MG 1 EACH TAB PO SCH ×3 (08:50→20:57)
[2022-07-28] MEDS: HEPARIN SODIUM,PORCINE/PF 5,000 UNIT/0.5 ML SYRINGE SQ SCH ×2 (08:50→20:57)
[2022-07-28] MEDS: TAMSULOSIN 0.4 MG CAP.ER.24H PO SCH (08:50)
[2022-07-28] MEDS: CIPROFLOXACIN 0.3% OPHTH SOLN 5 ML BTL BOTH EYES SCH ×2 (08:51→20:57)
[2022-07-28 11:07] LABS: Glucose,Whole Blood 108 mg/dL (70-110)
[2022-07-28 16:11] LABS: Glucose,Whole Blood 121 mg/dL (70-110)
[2022-07-28 20:38] LABS: Glucose,Whole Blood 135 mg/dL (70-110)
[2022-07-29] MEDS: MEROPENEM 1 GM in SODIUM CHLORIDE 0.9% 100 ML IVPB SCH ×3 (01:10→17:01)
--- NOTE | 2022-07-29 02:55 | P.PN ---
Subjective Progress Note Date: 07/26/22 Patient is a 72-year-old male with a known history of diabetes type 2 [id number], hypothyroidism, Parkinson's disease, history of Guillain- Hoffman syndrome, history of right lower extremity venous disease and prior history of multiple UTIs including ESBL UTI was brought to the hospital by EMS due to altered mental status and lethargy. Patient is a poor historian. According to his daughter patient was found to be lethargic and felt very weak when she noticed him around 9 AM yesterday morning. Patient was talking to her before she went to making breakfast. When she came back she was found to be pale and lips turned blue and also his extremities became cool and clammy. EMS was called and patient was brought to the hospital. He was noted to be febrile by EMS. On admission Tmax was 101.3. Chest x-ray showed right lower lobe airspace opacities which could represent summation of vasculature versus pneumonia.. Patient was tachycardic and hypotensive and received fluid boluses. Patient was started norepinephrine drip and was transferred to MICU. Patient is currently on 2 pressors. Laboratory data on admission showed WBC 6.8 hemoglobin 14.3 and platelets 151 Sodium 139 potassium 3.8 chloride 107 bicarb is 22 BUN 25 and creatinine 1.21 and lactic acid 4.6. Urinalysis showed 4+ glucose 1+ protein nitrite negative large leukocyte esterase with elevated RBCs and WBCs. Influenza, RSV and COVID-19 PCR not detected. 07/25/2022 Patient is currently in the MICU. Resting in the bed comfortably. Awake alert and oriented x3. Mentation is much improved today. Currently on room air. No complaints of chest pain or worsening shortness of breath. No nausea vomiting abdominal pain or diarrhea. No cough or sputum production. Patient is off pressor support. Currently on normal saline at 130 cc/h. Systolic blood pressure is improving to upper 90s. Urine culture showed gram-negative bacilli. Patient remains on antibiotics meropenem. Today's chest x-ray showed stable bibasilar atelectasis and/or infiltrate. Laboratory data showed WBC trending down to 12.6 hemoglobin 11.4 and platelets 113 sodium 139 potassium 3.3 chloride 110 bicarb is 23 BUN 17 and creatinine 0.83 and blood sugar is 80 and A1c of 7.2. 07/26/2022 Patient is currently in the ICU. Awake alert and oriented. Currently on room air. No complaints of chest pain or shortness of breath. Urine culture showed E. coli. Ultrasound renal showed no evidence of hydronephrosis. Blood cultures negative so far. Laboratory data showed WBC 8.3 hemoglobin 9.4 and platelets 101 sodium 140 potassium 3.2 which is being replaced chloride 116 bicarb is 21 and creatinine 0.64 and calcium 7.5. Patient is being transferred to medical floor. Continued on antibiotics, meropenem. ID is on board. Current medications reviewed. Objective - Vital Signs Vital signs: Vital Signs Temp 99.6 F 07/26/22 20:00 Pulse 68 07/26/22 20:00 Resp 17 07/26/22 20:00 BP 138/81 07/26/22 20:00 Pulse Ox 97 07/26/22 20:00 FiO2 Intake & Output 07/26/22 07/26/22 07/27/22 06:59 18:59 06:59 Intake Total 1660 Output Total 950 2300 Balance 710 -2300 Intake: IV 1560 Sodium Chloride 0.9% 1, 1560 000 ml @ 75 mls/hr IV . [id number] [facility] Rx#:[id number] Intake, IV Titration 100 Amount Meropenem 1 gm In Sodium 100 Chloride 0.9% 100 ml @ 33 .3 mls/hr IVPB Q8H [facility] Rx #:[id number] Output: Urine 950 2300 Other: Voiding Method Indwelling Catheter Indwelling Catheter Indwelling Catheter - Exam PHYSICAL EXAMINATION: Patient is lying in the. No acute distress, awake alert and oriented x 2- 3 HEENT: Normocephalic. Neck is supple. Pupils reactive. Nostrils clear. Oral cavity is moist. Neck reveals no JVD, carotid bruits, or thyromegaly. CHEST EXAMINATION: Trachea is central. Symmetrical expansion. Bibasilar diminished sounds.. No wheezing or rhonchi. CARDIAC: Normal S1, S2 with no gallops. No murmurs ABDOMEN: Soft. Bowel sounds present. Nontender. No organomegaly. No abdominal bruits. Extremities: Right lower extremity minimal swelling below the knee and mottling of the skin. Cold and clammy skin.. No clubbing or cyanosis Neurologically awake, alert, oriented x 2-3. Patient is able to move extremities while in bed. No gross focal deficits noted Skin: No rash or skin lesions. Psychiatric: Coperative. . Musculoskeletal: No joint swelling or deformity. - Labs CBC & Chem 7: 07/27/22 05:47 07/27/22 05:47 Labs: Abnormal Lab Results - Last 24 Hours (Table) 07/26/22 07/26/22 07/26/22 Range/Units 04:32 04:32 11:03 RBC 3.44 L (4.30-5.90) m/uL Hgb 9.4 L D (13.0-17.5) gm/dL Hct 29.7 L (39.0-53.0) % Plt Count 101 L (150-450) k/uL Lymphocytes # 0.9 L (1.0-4.8) k/uL Potassium 3.2 L (3.5-5.1) mmol/L Chloride 116 H (98-107) mmol/L Carbon Dioxide 21 L (22-30) mmol/L Creatinine 0.64 L (0.66-1.25) mg/dL POC Glucose (mg/dL) 126 H (70-110) mg/dL Calcium 7.5 L (8.4-10.2) mg/dL Microbiology - Last 24 Hours (Table) 07/23/22 13:35 Blood Culture - Preliminary Blood 07/23/22 13:20 Blood Culture - Preliminary Blood 07/23/22 13:30 Urine Culture - Final Urine,Catheterized Escherichia coli Assessment and Plan Assessment: Septic shock secondary to urinary tract infection. Patient does have history of multiple UTIs including ESBL and is on chronic antibiotic therapy with Keflex. Patient is off pressor support since 07/25 AM. Acute hypoxemic respiratory failure requiring 3 L oxygen via nasal cannula.--titrtaed down to RA Acute urinary tract infection with gram-negative bacilli/ E coli Possible right lower lobe pneumonia Lactic acidosis 4.6 on admission Diabetes type 2 [id number]-[id number] Hypothyroidism Parkinson's disease History of Raynaud's disease and chronic discoloration of the right lower extremity below the knee. Parkinson's disease History of Guillain-Hoffman syndrome Hypothyroidism Obesity with BMI 32.2 DVT prophylaxis with heparin subcu every 8 hourly Plan: Patient is being continued on IV hydration with normal saline. Currently off pressor support Levophed and vasopressin. Patient will be continued on antibiotics meropenem. Follow-up blood cultures and urine culture report showed gram-negative bacilli.. ID is on board. Continue with home medications. Vascular surgery was consulted due to right lower extremity cold clammy and mottled skin. No surgical intervention recommended at this time. Prognosis is guarded. Time with Patient: Greater than 30
--- NOTE | 2022-07-29 03:00 | P.PN ---
Subjective Progress Note Date: 07/27/22 Patient is a 72-year-old male with a known history of diabetes type 2 [id number], hypothyroidism, Parkinson's disease, history of Guillain- Hoffman syndrome, history of right lower extremity venous disease and prior history of multiple UTIs including ESBL UTI was brought to the hospital by EMS due to altered mental status and lethargy. Patient is a poor historian. According to his daughter patient was found to be lethargic and felt very weak when she noticed him around 9 AM yesterday morning. Patient was talking to her before she went to making breakfast. When she came back she was found to be pale and lips turned blue and also his extremities became cool and clammy. EMS was called and patient was brought to the hospital. He was noted to be febrile by EMS. On admission Tmax was 101.3. Chest x-ray showed right lower lobe airspace opacities which could represent summation of vasculature versus pneumonia.. Patient was tachycardic and hypotensive and received fluid boluses. Patient was started norepinephrine drip and was transferred to MICU. Patient is currently on 2 pressors. Laboratory data on admission showed WBC 6.8 hemoglobin 14.3 and platelets 151 Sodium 139 potassium 3.8 chloride 107 bicarb is 22 BUN 25 and creatinine 1.21 and lactic acid 4.6. Urinalysis showed 4+ glucose 1+ protein nitrite negative large leukocyte esterase with elevated RBCs and WBCs. Influenza, RSV and COVID-19 PCR not detected. 07/25/2022 Patient is currently in the MICU. Resting in the bed comfortably. Awake alert and oriented x3. Mentation is much improved today. Currently on room air. No complaints of chest pain or worsening shortness of breath. No nausea vomiting abdominal pain or diarrhea. No cough or sputum production. Patient is off pressor support. Currently on normal saline at 130 cc/h. Systolic blood pressure is improving to upper 90s. Urine culture showed gram-negative bacilli. Patient remains on antibiotics meropenem. Today's chest x-ray showed stable bibasilar atelectasis and/or infiltrate. Laboratory data showed WBC trending down to 12.6 hemoglobin 11.4 and platelets 113 sodium 139 potassium 3.3 chloride 110 bicarb is 23 BUN 17 and creatinine 0.83 and blood sugar is 80 and A1c of 7.2. 07/26/2022 Patient is currently in the ICU. Awake alert and oriented. Currently on room air. No complaints of chest pain or shortness of breath. Urine culture showed E. coli. Ultrasound renal showed no evidence of hydronephrosis. Blood cultures negative so far. Laboratory data showed WBC 8.3 hemoglobin 9.4 and platelets 101 sodium 140 potassium 3.2 which is being replaced chloride 116 bicarb is 21 and creatinine 0.64 and calcium 7.5. Patient is being transferred to medical floor. Continued on antibiotics, meropenem. ID is on board. 07/27/2022 Medical floor. Awake And oriented. No complaints of chest pain or shortness of breath. Afebrile. No nausea vomiting abdominal pain or diarrhea. Patient is tolerating oral diet. No other acute overnight issues. Patient is on IV antibiotics, meropenem. ID is on board. Patient may require IV antibiotics at discharge. Laboratory data showed WBC 5.3 hemoglobin 11.8 and platelets 132, sodium 137 potassium 3.8 chloride 107 bicarb is 23.9 BUN 8.9 and creatinine 0.8 and calcium 10.2. Current medications reviewed. Objective - Vital Signs Vital signs: Vital Signs Temp 98.6 F 07/27/22 19:16 Pulse 65 07/27/22 19:16 Resp 17 07/27/22 19:16 BP 117/75 07/27/22 19:16 Pulse Ox 97 07/27/22 19:16 FiO2 Intake & Output 07/27/22 07/27/22 07/28/22 06:59 18:59 06:59 Intake Total 1000 Output Total 4200 Balance -3200 Intake: IV 900 Sodium Chloride 0.9% 1, 900 000 ml @ 75 mls/hr IV . [id number] [facility] Rx#:[id number] Intake, IV Titration 100 Amount Meropenem 1 gm In Sodium 100 Chloride 0.9% 100 ml @ 33 .3 mls/hr IVPB Q8H [facility] Rx #:[id number] Output: Urine 4200 Other: Voiding Method Indwelling Catheter Indwelling Catheter - Exam PHYSICAL EXAMINATION: Patient is lying in the. No acute distress, awake alert and oriented x 2- 3 HEENT: Normocephalic. Neck is supple. Pupils reactive. Nostrils clear. Oral cavity is moist. Neck reveals no JVD, carotid bruits, or thyromegaly. CHEST EXAMINATION: Trachea is central. Symmetrical expansion. Bibasilar diminished sounds.. No wheezing or rhonchi. CARDIAC: Normal S1, S2 with no gallops. No murmurs ABDOMEN: Soft. Bowel sounds present. Nontender. No organomegaly. No abdominal bruits. Extremities: Right lower extremity minimal swelling below the knee and mottling of the skin. Cold and clammy skin.. No clubbing or cyanosis Neurologically awake, alert, oriented x 2-3. Patient is able to move extremities while in bed. No gross focal deficits noted Skin: No rash or skin lesions. Psychiatric: Coperative. . Musculoskeletal: No joint swelling or deformity. - Labs CBC & Chem 7: 07/27/22 05:47 07/27/22 05:47 Labs: Abnormal Lab Results - Last 24 Hours (Table) 07/27/22 07/27/22 Range/Units 05:47 05:47 RBC 4.21 L (4.40-5.60) X 10*6/uL Hgb 11.8 L (13.0-17.0) g/dL Hct 36.3 L (39.6-50.0) % RDW 14.6 H (11.5-14.5) % Plt Count 132 L (140-440) X 10*3/uL Immature Gran # 0.06 H (0.00-0.04) X 10*3/uL Anion Gap 6.10 L (10.00-18.00) mmol/L BUN 8.9 L (9.0-27.0) mg/dL BUN/Creatinine Ratio 11.13 L (12.00-20.00) Ratio Microbiology - Last 24 Hours (Table) 07/23/22 13:35 Blood Culture Gram Stain - Preliminary Blood Blood Culture - Preliminary Escherichia coli 07/23/22 13:20 Blood Culture - Preliminary Blood Assessment and Plan Assessment: Septic shock secondary to urinary tract infection. Patient does have history of multiple UTIs including ESBL and is on chronic antibiotic therapy with Keflex. Patient is off pressor support since 07/25 AM. Acute hypoxemic respiratory failure requiring 3 L oxygen via nasal cannula.--titrtaed down to RA Acute urinary tract infection with gram-negative bacilli/ E coli Possible right lower lobe pneumonia Lactic acidosis 4.6 on admission Diabetes type 2 [id number] Hypothyroidism Parkinson's disease History of Raynaud's disease and chronic discoloration of the right lower extremity below the knee. Parkinson's disease History of Guillain-Hoffman syndrome Hypothyroidism Obesity with BMI 32.2 DVT prophylaxis with heparin subcu every 8 hourly Plan: Patient is being continued on IV hydration with normal saline. Currently off pressor support Levophed and vasopressin. Patient will be continued on antibiotics meropenem. Follow-up blood cultures and urine culture report showed gram-negative bacilli.. ID is on board. Continue with home medications. Vascular surgery was consulted due to right lower extremity cold clammy and mottled skin. No surgical intervention recommended at this time. Prognosis is guarded.
--- NOTE | 2022-07-29 03:01 | P.PN ---
Subjective Progress Note Date: 07/28/22 Patient is a 72-year-old male with a known history of diabetes type 2 [id number], hypothyroidism, Parkinson's disease, history of Guillain- Hoffman syndrome, history of right lower extremity venous disease and prior history of multiple UTIs including ESBL UTI was brought to the hospital by EMS due to altered mental status and lethargy. Patient is a poor historian. According to his daughter patient was found to be lethargic and felt very weak when she noticed him around 9 AM yesterday morning. Patient was talking to her before she went to making breakfast. When she came back she was found to be pale and lips turned blue and also his extremities became cool and clammy. EMS was called and patient was brought to the hospital. He was noted to be febrile by EMS. On admission Tmax was 101.3. Chest x-ray showed right lower lobe airspace opacities which could represent summation of vasculature versus pneumonia.. Patient was tachycardic and hypotensive and received fluid boluses. Patient was started norepinephrine drip and was transferred to MICU. Patient is currently on 2 pressors. Laboratory data on admission showed WBC 6.8 hemoglobin 14.3 and platelets 151 Sodium 139 potassium 3.8 chloride 107 bicarb is 22 BUN 25 and creatinine 1.21 and lactic acid 4.6. Urinalysis showed 4+ glucose 1+ protein nitrite negative large leukocyte esterase with elevated RBCs and WBCs. Influenza, RSV and COVID-19 PCR not detected. 07/25/2022 Patient is currently in the MICU. Resting in the bed comfortably. Awake alert and oriented x3. Mentation is much improved today. Currently on room air. No complaints of chest pain or worsening shortness of breath. No nausea vomiting abdominal pain or diarrhea. No cough or sputum production. Patient is off pressor support. Currently on normal saline at 130 cc/h. Systolic blood pressure is improving to upper 90s. Urine culture showed gram-negative bacilli. Patient remains on antibiotics meropenem. Today's chest x-ray showed stable bibasilar atelectasis and/or infiltrate. Laboratory data showed WBC trending down to 12.6 hemoglobin 11.4 and platelets 113 sodium 139 potassium 3.3 chloride 110 bicarb is 23 BUN 17 and creatinine 0.83 and blood sugar is 80 and A1c of 7.2. 07/26/2022 Patient is currently in the ICU. Awake alert and oriented. Currently on room air. No complaints of chest pain or shortness of breath. Urine culture showed E. coli. Ultrasound renal showed no evidence of hydronephrosis. Blood cultures negative so far. Laboratory data showed WBC 8.3 hemoglobin 9.4 and platelets 101 sodium 140 potassium 3.2 which is being replaced chloride 116 bicarb is 21 and creatinine 0.64 and calcium 7.5. Patient is being transferred to medical floor. Continued on antibiotics, meropenem. ID is on board. 07/27/2022 Medical floor. Awake And oriented. No complaints of chest pain or shortness of breath. Afebrile. No nausea vomiting abdominal pain or diarrhea. Patient is tolerating oral diet. No other acute overnight issues. Patient is on IV antibiotics, meropenem. ID is on board. Patient may require IV antibiotics at discharge. Laboratory data showed WBC 5.3 hemoglobin 11.8 and platelets 132, sodium 137 potassium 3.8 chloride 107 bicarb is 23.9 BUN 8.9 and creatinine 0.8 and calcium 10.2. 07/28/2022 Patient is resting in the bed. Awake alert and oriented. No complaints of chest pain or shortness of breath. No fever no chills. Denies any abdominal pain. Tolerating oral diet. Patient may need IV antibiotics for E. coli urinary tract infection and follow- up final culture report. ID is on board. PT OT will be consulted. Anticipate discharge in the next 48 hours. Current medications reviewed. Objective - Vital Signs Vital signs: Vital Signs Temp 98.3 F 07/28/22 19:42 Pulse 64 07/28/22 19:42 Resp 17 07/28/22 19:42 BP 114/68 07/28/22 19:42 Pulse Ox 94 L 07/28/22 19:42 FiO2 Intake & Output 07/28/22 07/28/22 07/29/22 06:59 18:59 06:59 Intake Total 100 Output Total 1000 1300 Balance -1000 -1200 Intake: Intake, IV Titration 100 Amount Meropenem 1 gm In Sodium 100 Chloride 0.9% 100 ml @ 33 .3 mls/hr IVPB Q8H [facility] Rx #:[id number] Output: Urine 1000 1300 Other: Voiding Method Indwelling Catheter Indwelling Catheter - Exam PHYSICAL EXAMINATION: Patient is lying in the. No acute distress, awake alert and oriented x 2- 3 HEENT: Normocephalic. Neck is supple. Pupils reactive. Nostrils clear. Oral cavity is moist. Neck reveals no JVD, carotid bruits, or thyromegaly. CHEST EXAMINATION: Trachea is central. Symmetrical expansion. Bibasilar diminished sounds.. No wheezing or rhonchi. CARDIAC: Normal S1, S2 with no gallops. No murmurs ABDOMEN: Soft. Bowel sounds present. Nontender. No organomegaly. No abdominal bruits. Extremities: Right lower extremity minimal swelling below the knee and mottling of the skin. Cold and clammy skin.. No clubbing or cyanosis Neurologically awake, alert, oriented x 2-3. Patient is able to move extremities while in bed. No gross focal deficits noted Skin: No rash or skin lesions. Psychiatric: Coperative. . Musculoskeletal: No joint swelling or deformity. - Labs CBC & Chem 7: 07/27/22 05:47 07/27/22 05:47 Labs: Abnormal Lab Results - Last 24 Hours (Table) 07/28/22 07/28/22 Range/Units 16:10 20:36 POC Glucose (mg/dL) 121 H 135 H (70-110) mg/dL Microbiology - Last 24 Hours (Table) 07/23/22 13:35 Blood Culture Gram Stain - Preliminary Blood Blood Culture - Preliminary Escherichia coli 07/23/22 13:20 Blood Culture - Preliminary Blood Assessment and Plan Assessment: Septic shock secondary to urinary tract infection. Patient does have history of multiple UTIs including ESBL and is on chronic antibiotic therapy with Keflex. Patient is off pressor support since 07/25 AM. Acute hypoxemic respiratory failure requiring 3 L oxygen via nasal mindy mauro.--titrtaed down to RA Acute urinary tract infection with gram-negative bacilli/ E coli Possible right lower lobe pneumonia Lactic acidosis 4.6 on admission Diabetes type 2 [id number] Hypothyroidism Parkinson's disease History of Raynaud's disease and chronic discoloration of the right lower extremity below the knee. Parkinson's disease History of Guillain-Hoffman syndrome Hypothyroidism Obesity with BMI 32.2 DVT prophylaxis with heparin subcu every 8 hourly Plan: Patient is being continued on IV hydration with normal saline. Currently off pressor support Levophed and vasopressin. Patient will be continued on antibiotics meropenem. Follow-up blood cultures and urine culture report showed gram-negative bacilli.. ID is on board. Continue with home medications. Vascular surgery was consulted due to right lower extremity cold clammy and mottled skin. No surgical intervention recommended at this time. Prognosis is guarded.
[2022-07-29 06:18] LABS: Glucose,Whole Blood 104 mg/dL (70-110)
[2022-07-29] MEDS: INSULIN ASPART (NovoLOG) 100 UNIT/ML VIAL SQ SCH ×4 (06:42→20:54)
[2022-07-29] MEDS: PANTOPRAZOLE 40 MG TABLET PO SCH (06:42)
[2022-07-29] MEDS: LEVOTHYROXINE 75 MCG TAB PO SCH (06:42)
[2022-07-29] MEDS: SODIUM CHLORIDE 0.9% 1,000 ML IV SCH ×2 (07:55→20:48)
[2022-07-29] MEDS: TAMSULOSIN 0.4 MG CAP.ER.24H PO SCH (07:56)
[2022-07-29] MEDS: PREGABALIN 75 MG CAP PO SCH ×2 (07:56→20:47)
[2022-07-29] MEDS: HEPARIN SODIUM,PORCINE/PF 5,000 UNIT/0.5 ML SYRINGE SQ SCH ×2 (07:56→20:47)
[2022-07-29] MEDS: CARBIDOPA-LEVODOPA 25-100 MG 1 EACH TAB PO SCH ×3 (07:56→20:51)
[2022-07-29] MEDS: CIPROFLOXACIN 0.3% OPHTH SOLN 5 ML BTL BOTH EYES SCH ×2 (07:57→20:48)
[2022-07-29 09:47] LABS: Basophils # (A) 0.05 X 10*3/uL (0.00-0.10); Basophils % (A) 0.8 %; Eosinophils # (A) 0.47 X 10*3/uL (0.04-0.35); Eosinophils % (A) 7.5 %; HCT 40.2 % (39.6-50.0); Immature Grans, Automated 4.6 %; Lymphocytes # (A) 1.36 X 10*3/uL (0.90-5.00); Lymphocytes % (A) 21.6 %; MCH 27.7 pg (27.0-32.0); MCHC 32.3 g/dL (32.0-37.0); MCV 85.7 fL (80.0-97.0); Mean Platelet Volume 11.1 fL (9.5-12.2); Monocytes # (A) 0.67 X 10*3/uL (0.20-1.00); Monocytes % (A) 10.7 %; NRBC Per 100 WBC 0 /100 WBCS (0.0-0.0); Neutrophils # (A) 3.45 X 10*3/uL (1.80-7.70); Neutrophils % (A) 54.8 %; Platelet Count 174 X 10*3/uL (140-440); RBC 4.69 X 10*6/uL (4.40-5.60); RDW 14.7 % (11.5-14.5); WBC 6.29 X 10*3/uL (4.50-10.00)
[2022-07-29 11:19] LABS: Glucose,Whole Blood 178 mg/dL (70-110)
--- NOTE | 2022-07-29 13:35 | P.PN ---
Subjective Progress Note Date: 07/27/22 Principal diagnosis: Sepsis/UTI Patient is a 72-year-old male with a past medical history significant for diabetes mellitus history of frequent UTI Guillain-Hoffman syndrome type 2 diabetes mellitus BPH patient was brought into the ER for evaluation of mental status changes , patient diagnosed with sepsis admitted to ICU concerning for UTI On today's evaluation that is 07/27/2022, the patient continues to be afebrile patient is breathing comfortably on room air, the patient denies having any chest pain or shortness of cough no abdominal pain and no diarrhea reported Objective - Vital Signs Vital signs: Vital Signs Temp 98.0 F 07/27/22 07:08 Pulse 54 L 07/27/22 07:08 Resp 18 07/27/22 07:08 BP 120/74 07/27/22 07:08 Pulse Ox 93 L 07/27/22 08:50 FiO2 Intake & Output 07/26/22 07/27/22 07/27/22 18:59 06:59 18:59 Intake Total 1000 Output Total 2300 2500 Balance -2300 -1500 Intake: IV 900 Sodium Chloride 0.9% 1, 900 000 ml @ 75 mls/hr IV . [id number] [facility] Rx#:[id number] Intake, IV Titration 100 Amount Meropenem 1 gm In Sodium 100 Chloride 0.9% 100 ml @ 33 .3 mls/hr IVPB Q8H [facility] Rx #:[id number] Output: Urine 2300 2500 Other: Voiding Method Indwelling Catheter Indwelling Catheter - Exam Elderly male lying in bed in no distress Lungs clear to auscultation Abdomen soft Exam completed with the help of [employer] PLUMBER HELPER - Labs CBC & Chem 7: 07/29/22 05:28 07/27/22 05:47 Labs: Abnormal Lab Results - Last 24 Hours (Table) 07/26/22 Range/Units 11:03 POC Glucose (mg/dL) 126 H (70-110) mg/dL Microbiology - Last 24 Hours (Table) 07/23/22 13:35 Blood Culture - Preliminary Blood 07/23/22 13:20 Blood Culture - Preliminary Blood Assessment and Plan (1) UTI (urinary tract infection) Current Visit: Yes Status: Acute Code(s): N39.0 - URINARY TRACT INFECTION, SITE NOT SPECIFIED SNOMED Code(s): 73437460 (2) Sepsis Current Visit: No Status: Acute Code(s): A41.9 - SEPSIS, UNSPECIFIED ORGANISM SNOMED Code(s): 69727509 Plan: This was on telehealth visit 1patient presented to hospital with sepsis in this patient with a fever tachycardia hypotension elevated lactic acid requiring fluid and pressor support significantly positive UA likely source is urinary tract infection underlying pneumonia less likely but not entirely excluded, patient did have a history of ESBL pathogen infection 2-patient has shown clinical improvement urine cultures grew ESBL E. coli blood culture had been negative patient to continue with the meropenem and monitor clinical course closely Time with Patient: Less than 30
--- NOTE | 2022-07-29 13:36 | P.PN ---
Subjective Progress Note Date: 07/28/22 Principal diagnosis: Sepsis/UTI Patient is a 72-year-old male with a past medical history significant for diabetes mellitus history of frequent UTI Guillain-Hoffman syndrome type 2 diabetes mellitus BPH patient was brought into the ER for evaluation of mental status changes , patient diagnosed with sepsis admitted to ICU concerning for UTI On today's evaluation that is 07/28/2022, the patient remains to be afebrile patient is breathing comfortably on room air, the patient chest pain or shortness of breath and no significant cough no abdominal pain and no diarrhea r eported Objective - Vital Signs Vital signs: Vital Signs Temp 97.6 F 07/28/22 07:06 Pulse 65 07/28/22 07:06 Resp 16 07/28/22 07:06 BP 115/60 07/28/22 07:06 Pulse Ox 94 L 07/28/22 07:06 FiO2 Intake & Output 07/27/22 07/28/22 07/28/22 18:59 06:59 18:59 Output Total 1000 Balance -1000 Output: Urine 1000 Other: Voiding Method Indwelling Catheter Indwelling Catheter Indwelling Catheter - Exam Elderly male lying in bed in no distress Lungs clear to auscultation Abdomen soft Exam completed with the help of HEAD BUCKER - Labs CBC & Chem 7: 07/29/22 05:28 07/27/22 05:47 Labs: Microbiology - Last 24 Hours (Table) 07/23/22 13:35 Blood Culture Gram Stain - Preliminary Blood Blood Culture - Preliminary Escherichia coli 07/23/22 13:20 Blood Culture - Preliminary Blood Assessment and Plan (1) UTI (urinary tract infection) Current Visit: Yes Status: Acute Code(s): N39.0 - URINARY TRACT INFECTION, SITE NOT SPECIFIED SNOMED Code(s): 14780145 (2) Sepsis Current Visit: No Status: Acute Code(s): A41.9 - SEPSIS, UNSPECIFIED O RGANISM SNOMED Code(s): 48945371 Plan: This was on telehealth visit 1patient presented to hospital with sepsis in this patient with a fever ta chycardia hypotension elevated lactic acid requiring fluid and pressor support significantly positive UA likely source is urinary tract infection underlying pneumonia less likely but not entirely excluded, patient did have a history of ESBL pathogen infection 2-patient urine cultures grew ESBL E. coli blood culture had been negative 3-patient to continue with the meropenem and monitor clinical course closely Time with Patient: Less than 30
--- NOTE | 2022-07-29 13:37 | P.PN ---
Subjective Progress Note Date: 07/29/22 Principal diagnosis: Sepsis/UTI Patient is a 72-year-old male with a past medical history significant for diabetes mellitus history of frequent UTI Guillain-Hoffman syndrome type 2 diabetes mellitus BPH patient was brought into the ER for evaluation of mental status changes , patient diagnosed with sepsis admitted to ICU concerning for UTI On today's evaluation that is 07/29/2022, the patient denies any fever or any chills, patient is breathing comfortably on room air, the patient chest pain or shortness of breath and no significant cough, the patient denies having any nausea no vomiting, no abdominal pain and no diarrhea reported Objective - Vital Signs Vital signs: Vital Signs Temp 98.2 F 07/29/22 06:55 Pulse 70 07/29/22 06:55 Resp 16 07/29/22 06:55 BP 106/58 07/29/22 06:55 Pulse Ox 95 07/29/22 06:55 FiO2 Intake & Output 07/28/22 07/29/22 07/29/22 18:59 06:59 18:59 Intake Total 100 Output Total 1300 510 Balance -1200 -510 Intake: Intake, IV Titration 100 Amount Meropenem 1 gm In Sodium 100 Chloride 0.9% 100 ml @ 33 .3 mls/hr IVPB Q8H [facility] Rx #:[id number] Output: Urine 1300 510 Other: Voiding Method Indwelling Catheter Indwelling Catheter Indwelling Catheter - Exam GENERAL DESCRIPTION: An elderly male lying in bed in no distress RESPIRATORY SYSTEM: Unlabored breathing , decreased breath sounds at bases HEART: S1 S2 regular rate and rhythm , ABDOMEN: Soft , no tenderness EXTREMITIES: No edema feet - Labs CBC & Chem 7: 07/29/22 05:28 07/27/22 05:47 Labs: Abnormal Lab Results - Last 24 Hours (Table) 07/28/22 07/28/22 07/29/22 Range/Units 16:10 20:36 05: RDW 14.7 H (11.5-14.5) % Immature Gran # 0.29 H (0.00-0.04) X 10*3/uL Eosinophils # 0.47 H (0.04-0.35) X 10*3/uL POC Glucose (mg/dL) 121 H 135 H (70-110) mg/dL 07/29/22 Range/Units 11:17 RDW (11.5-14.5) % Immature Gran # (0.00-0.04) X 10*3/uL Eosinophils # (0.04-0.35) X 10*3/uL POC Glucose (mg/dL) 178 H (70-110) mg/dL Microbiology - Last 24 Hours (Table) 07/23/22 13:20 Blood Culture - Final Blood Assessment and Plan (1) UTI (urinary tract infection) Current Visit: Yes Status: Acute Code(s): N39.0 - URINARY TRACT INFECTION, SITE NOT SPECIFIED SNOMED Code(s): 35405962 (2) Sepsis Current Visit: No Status: Acute Code(s): A41.9 - SEPSIS, UNSPECIFIED ORGANISM SNOMED Code(s): 50644359 Plan: 1patient presented to hospital with sepsis in this patient with a fever tachycardia hypotension elevated lactic acid requiring fluid and pressor support significantly positive UA likely source is urinary tract infection underlying pneumonia less likely but not entirely excluded, patient did have a history of E SBL pathogen infection 2-patient urine cultures grew ESBL E. coli blood culture had been negative 3-patient to continue with the meropenem , patient did get a midline in the a.m. antibiotic will be switched to Invanz 1 g daily for 7 days on discharge Time with Patient: Less than 30
[2022-07-29 13:38] LABS: Anion Gap 11.8 mmol/L (10.00-18.00); BUN/Creat Ratio 19.19 Ratio (12.00-20.00); Blood Urea Nitrogen 17.6 mg/dL (9.0-27.0); Calcium 10.9 mg/dL (8.7-10.3); Carbon Dioxide 20.4 mmol/L (20.0-27.5); Non-African American GFR(CKD) 83.7 (60.0-200.0); Potassium 4.1 mmol/L (3.5-5.5)
[2022-07-29 16:34] LABS: Glucose,Whole Blood 133 mg/dL (70-110)
[2022-07-29] MEDS ORDERED: SODIUM CHLORIDE 0.9% 500 ML 500 ML IV ONE (20:02)
--- NOTE | 2022-07-29 20:02 | P.PN ---
Subjective From my card Patient is a 72-year-old male with a known history of diabetes type 2 wtm-alyjyeo-ucjyyxntq, hypothyroidism, Parkinson's disease, history of Guillain- Hoffman syndrome, history of right lower extremity venous disease and prior history of multiple UTIs including ESBL UTI was brought to the hospital by EMS due to altered mental status and lethargy. Patient is a poor historian. According to his daughter patient was found to be lethargic and felt very weak when she noticed him around 9 AM yesterday morning. Patient was talking to her before she went to making breakfast. When she came back she was found to be pale and lips turned blue and also his extremities became cool and clammy. EMS was called and patient was brought to the hospital. He was noted to be febrile by EMS. On admission Tmax was 101.3. Chest x-ray showed right lower lobe airspace opacities which could represent summation of vasculature versus pneumonia.. Patient was tachycardic and hypotensive and received fluid boluses. Patient was started norepinephrine drip and was transferred to MICU. Patient is currently on 2 pressors. Laboratory data on admission showed WBC 6.8 hemoglobin 14.3 and platelets 151 Sodium 139 potassium 3.8 chloride 107 bicarb is 22 BUN 25 and creatinine 1.21 and lactic acid 4.6. Urinalysis showed 4+ glucose 1+ protein nitrite negative large leukocyte esterase with elevated RBCs and WBCs. Influenza, RSV and COVID-19 PCR not detected. 07/25/2022 Patient is currently in the MICU. Resting in the bed comfortably. Awake alert and oriented x3. Mentation is much improved today. Currently on room air. No complaints of chest pain or worsening shortness of breath. No nausea vomiting abdominal pain or diarrhea. No cough or sputum production. Patient is off pressor support. Currently on normal saline at 130 cc/h. Systolic blood pressure is improving to upper 90s. Urine culture showed gram-negative bacilli. Patient remains on antibiotics meropenem. Today's chest x-ray showed stable bibasilar atelectasis and/or infiltrate. Laboratory data showed WBC trending down to 12.6 hemoglobin 11.4 and platelets 113 sodium 139 potassium 3.3 chloride 110 bicarb is 23 BUN 17 and creatinine 0.83 and blood sugar is 80 and A1c of 7.2. 07/26/2022 Patient is currently in the ICU. Awake alert and oriented. Currently on room air. No complaints of chest pain or shortness of breath. Urine culture showed E. coli. Ultrasound renal showed no evidence of hydronephrosis. Blood cultures negative so far. Laboratory data showed WBC 8.3 hemoglobin 9.4 and platelets 101 sodium 140 potassium 3.2 which is being replaced chloride 116 bicarb is 21 and creatinine 0.64 and calcium 7.5. Patient is being transferred to medical floor. Continued on antibiotics, meropenem. ID is on board. 07/27/2022 Medical floor. Awake And oriented. No complaints of chest pain or shortness of breath. Afebrile. No nausea vomiting abdominal pain or diarrhea. Patient is tolerating oral diet. No other acute overnight issues. Patient is on IV antibi otics, meropenem. ID is on board. Patient may require IV antibiotics at discharge. Laboratory data showed WBC 5.3 hemoglobin 11.8 and platelets 132, sodium 137 potassium 3.8 chloride 107 bicarb is 23.9 BUN 8.9 and creatinine 0.8 and calcium 10.2. 07/28/2022 Patient is resting in the bed. Awake alert and oriented. No complaints of chest pain or shortness of breath. No fever no chills. Denies any abdominal pain. Tolerating oral diet. Patient may need IV antibiotics for E. coli urinary tract infection and follow- up final culture report. ID is on board. PT OT will be consulted. Anticipate discharge in the next 48 hours. I am resuming the care of the patient today 07/29/2022 This is a pleasant 89 MALE with multiple problems admitted with sepsis and septic shock secondary to ESBL E. coli bacteremia His improving slowly and gradually, today awake and alert but generally lethargic and weak. Distal blood pressure on the low side with systolic 90-115. Baseline systolic blood pressure 120- 150 He remains on meropenem Objective - Vital Signs Vital signs: Vital Signs Temp 98.2 F 07/29/22 06:55 Pulse 70 07/29/22 06:55 Resp 16 07/29/22 06:55 BP 106/58 07/29/22 06:55 Pulse Ox 95 07/29/22 06:55 FiO2 Intake & Output 07/28/22 07/29/22 07/29/22 18:59 06:59 18:59 Intake Total 100 Output Total 1300 510 Balance -1200 -510 Intake: Intake, IV Titration 100 Amount Meropenem 1 gm In Sodium 100 Chloride 0.9% 100 ml @ 33 .3 mls/hr IVPB Q8H [facility] Rx #:[id number] Output: Urine 1300 510 Other: Voiding Method Indwelling Catheter Indwelling Catheter - Exam -GENERAL: The patient is alert and oriented x3, not in any acute distress. Well developed, well nourished. Generally weak HEENT: Pupils are round and equally reacting to light. EOMI. No scleral icterus. No conjunctival pallor. Normocephalic, atraumatic. No pharyngeal erythema. No thyromegaly. CARDIOVASCULAR: S1 and S2 present. No murmurs, rubs, or gallops. PULMONARY: Chest is clear to auscultation, no wheezing . no crackles. ABDOMEN: Soft, nontender, nondistended, normoactive bowel sounds. No palpable organomegaly. MUSCULOSKELETAL: No joint swelling or deformity. EXTREMITIES: No cyanosis, clubbing, or pedal edema. NEUROLOGICAL: Gross neurological examination did not reveal any focal deficits. SKIN: No rashes. no petechiae. - Labs CBC & Chem 7: 07/29/22 05:28 07/29/22 05:28 Labs: Abnormal Lab Results - Last 24 Hours (Table) 07/28/22 07/28/22 Range/Units 16:10 20:36 POC Glucose (mg/dL) 121 H 135 H (70-110) mg/dL Microbiology - Last 24 Hours (Table) 07/23/22 13:35 Blood Culture Gram Stain - Preliminary Blood Blood Culture - Preliminary Escherichia coli 07/23/22 13:20 Blood Culture - Preliminary Blood Assessment and Plan Assessment: Septic shock secondary to urinary tract infection. Patient does have history of multiple UTIs including ESBL and is on chronic antibiotic therapy with Keflex. Patient is off pressor support since 07/25 AM. Acute hypoxemic respiratory failure requiring 3 L oxygen via nasal cannula.--titrtaed down to RA Acute urinary tract infection with gram-negative bacilli/ E coli Possible right lower lobe pneumonia Lactic acidosis 4.6 on admission Diabetes type 2 [id number]-cntcrhsjl Hypothyroidism Parkinson's disease History of Raynaud's disease and chronic discoloration of the right lower extremity below the knee. Parkinson's disease History of Guillain-Hoffman syndrome Hypothyroidism Obesity with BMI 32.2 Plan: Continue with meropenem Continue with normal sinus 75 mL/h Labs and medication were reviewed.. Continue same treatment. Continue with symptomatic treatment. Resume home medication. Monitor labs and vitals. DVT and GI prophylaxis. Further recommendations as per clinical course of the patient DVT prophylaxis: Subcutaneous heparin GI Prophylaxis: ppi PT/OT: [id number] Prognosis is guarded
[2022-07-29 20:28] LABS: Glucose,Whole Blood 122 mg/dL (70-110)
[2022-07-30] MEDS: MEROPENEM 1 GM in SODIUM CHLORIDE 0.9% 100 ML IVPB SCH ×2 (01:22→09:13)
[2022-07-30 05:59] LABS: Glucose,Whole Blood 103 mg/dL (70-110)
[2022-07-30] MEDS: LEVOTHYROXINE 75 MCG TAB PO SCH (06:50)
[2022-07-30] MEDS: PANTOPRAZOLE 40 MG TABLET PO SCH (06:50)
[2022-07-30] MEDS: INSULIN ASPART (NovoLOG) 100 UNIT/ML VIAL SQ SCH ×3 (06:51→16:54)
[2022-07-30 07:34] VITALS: RESP 16
[2022-07-30] MEDS: CARBIDOPA-LEVODOPA 25-100 MG 1 EACH TAB PO SCH ×2 (09:13→15:47)
[2022-07-30] MEDS: HEPARIN SODIUM,PORCINE/PF 5,000 UNIT/0.5 ML SYRINGE SQ SCH (09:13)
[2022-07-30] MEDS: TAMSULOSIN 0.4 MG CAP.ER.24H PO SCH (09:13)
[2022-07-30] MEDS: CIPROFLOXACIN 0.3% OPHTH SOLN 5 ML BTL BOTH EYES SCH (09:16)
[2022-07-30] MEDS: PREGABALIN 75 MG CAP PO SCH (10:21)
[2022-07-30 11:21] LABS: Glucose,Whole Blood 93 mg/dL (70-110)
[2022-07-30] MEDS: SODIUM CHLORIDE 0.9% 1,000 ML IV SCH (11:45)
[2022-07-30 12:44] VITALS: BMI 32.4
--- NOTE | 2022-07-30 12:57 | P.PN ---
Subjective Progress Note Date: 07/30/22 Principal diagnosis: Sepsis/UTI Patient is a 72-year-old male with a past medical history significant for diabetes mellitus history of frequent UTI Guillain-Hoffman syndrome type 2 diabetes mellitus BPH patient was brought into the ER for evaluation of mental status changes , patient diagnosed with sepsis admitted to ICU concerning for UTI On today's evaluation that is 07/30/2022, the patient remains to be afebrile, patient is breathing comfortably on room air, the patient denies chest pain or shortness of breath and no cough, the patient denies having any nausea no vomiting, no abdominal pain and no diarrhea reported, patient did got midline for outpatient IV antibiotics Objective - Vital Signs Vital signs: Vital Signs Temp 97.6 F 07/30/22 06:40 Pulse 51 L 07/30/22 06:40 Resp 16 07/30/22 06:40 BP 113/71 07/30/22 06:40 Pulse Ox 97 07/30/22 06:40 FiO2 Intake & Output 07/29/22 07/30/22 07/30/22 18:59 06:59 18:59 Output Total 650 Balance -650 Weight 99.6 kg Output: Urine 650 Other: Voiding Method Indwelling Catheter Indwelling Catheter Indwelling Catheter - Exam GENERAL DESCRIPTION: An elderly male lying in bed in no distress RESPIRATORY SYSTEM: Unlabored breathing , decreased breath sounds at bases HEART: S1 S2 regular rate and rhythm , ABDOMEN: Soft , no tenderness EXTREMITIES: No edema feet - Labs CBC & Chem 7: 07/29/22 05:28 07/29/22 05:28 Labs: Abnormal Lab Results - Last 24 Hours (Table) 07/29/22 07/29/22 07/29/22 Range/Units 05:28 16:33 20:24 POC Glucose (mg/dL) 133 H 122 H (70-110) mg/dL Calcium 10.9 H (8.7-10.3) mg/dL Microbiology - Last 24 Hours (Table) 07/23/22 13:35 Blood Culture Gram Stain - Final Blood Blood Culture - Final Escherichia coli 07/23/22 13:20 Blood Culture - Final Blood Assessment and Plan (1) UTI (urinary tract infection) Current Visit: Yes Status: Acute Code(s): N39.0 - URINARY TRACT INFECTION, SITE NOT SPECIFIED SNOMED Code(s): 29656836 (2) Sepsis Current Visit: No Status: Acute Code(s): A41.9 - SEPSIS, UNSPECIFIED ORGANISM SNOMED Code(s): 25136320 Plan: 1patient presented to hospital with sepsis in this patient with a fever tachycardia hypotension elevated lactic acid requiring fluid and pressor support significantly positive UA likely source is urinary tract infection underlying pneumonia less likely but not entirely excluded, patient did have a history of ESBL pathogen infection 2-patient urine cultures grew ESBL E. coli blood culture had been negative 3-patient did got a midline, antibiotic will be switched to Invanz 1 g daily for 7 days on discharge Time with Patient: Less than 30
[2022-07-30] MEDS: ERTAPENEM 1 GM in SODIUM CHLORIDE 0.9% 50 ML IVPB SCH ×2 (13:29→13:42)
[2022-07-30 13:39] VITALS: BP 100/65; PULSE 63; TEMP 98.1
[2022-07-30 16:40] LABS: Glucose,Whole Blood 143 mg/dL (70-110)
--- NOTE | 2022-07-31 00:44 | P.DS ---
Providers Date of admission: 07/23/22 17:48 Attending physician: Hina Pavon Consults: 07/23/22 17:48 Consult Physician Stat Consulting Provider: Scott Wade Consult Reason/Comments: critical care Do you want consulting provider notified?: Already Contacted 07/24/22 01:56 Consult Physician Urgent Consulting Provider: French Muro Consult Reason/Comments: sepsis Do you want consulting provider notified?: Yes Primary care physician: [facility] Hospital Course: Diagnoses: Septic shock secondary to urinary tract infection. Patient does have history of multiple UTIs including ESBL and is on chronic antibiotic therapy with Keflex. Patient is off pressor support since 07/25 AM. 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 Parkinson's disease History of Guillain-Hoffman syndrome Hypothyroidism Obesity with BMI 32.2 Hospital course: Patient is a 72-year-old male with a known history of diabetes type 2 ald-ssgbefu-wxsnamwbg, hypothyroidism, Parkinson's disease, history of Guillain- Hoffman syndrome, history of right lower extremity venous disease and prior history of multiple UTIs including ESBL UTI was brought to the hospital by EMS due to altered mental status and lethargy. Patient presents because of acute urinary tract infection with ESBL E. coli and same bacteria with ESBL E. coli bacteremia and septic shock and he was treated in the ICU with supportive care and pressors with improvement he is now admitted to the general medical floor Infectious and pulmonary team were followed closely Patient was treated with meropenem and IV fluids with improvement in his discharge antibiotics were switched to Invanz 7 days per ID recommendation, PICC line is in place in the left arm. Patient and end touching machine operator at bedside were instructed to discontinue the PICC line after finish antibiotic course and they are agreeable Also patient has some urinary retention and Christensen catheter placed and the recommendation to follow-up with you neurologist as an outpatient Patient today he is back to baseline, he is generally weak, physical therapist recommended subacute rehab, patient declined and he was adamant to go home despite explaining the risks and benefits for him, he says that he has daughter and caregiver nurse will help him at home. He denies any new symptoms, no chest pain dyspnea or new GI or urinary symptoms Patient was cleared for discharge by infectious disease team Problems and management plan were discussed with the patient and he verbalized understanding and acceptance Patient was found stable and can be discharged home in guarded prognosis however he needs follow-up as an outpatient. Patient was instructed to follow up with PCP Dr. Delgadillo within one week and patient agrees Patient was instructed to follow up with urologist Dr. Landon in 1-2 weeks for his Christensen catheter management and because of his recurrent UTI and he is agreeable Patient was instructed to follow up with infectious disease doctor sided one week after discharge Physical exam Gen: patient is a AAOx3, no distress CVS: S1-S2, RRR, no murmur Lungs: B/L CTA, no wheezing -Abdomen: soft, no distention, no tenderness, positive bowel sounds. Christensen catheter in place -Extremity: no leg edema or induration. Chronic right approximately weakness Time spent more than 35 minutes Patient Condition at Discharge: Serious Plan - Discharge Summary New Discharge Prescriptions: New Ertapenem [INVanz] 1 gm IVPB Q24H #7 each Continue Tamsulosin HCl [Flomax] 0.4 mg PO DAILY Ascorbic Acid [Vitamin C] 1,000 mg PO DAILY tab Albuterol Inhaler [Ventolin Hfa Inhaler] 2 puff INHALATION RT-Q6H PRN PRN Reason: Shortness Of Breath Fish Oil/Dha/Epa [Fish Oil 1,200 mg Fish Oil] 1 cap PO BID Aspirin EC [Ecotrin Low Dose] 81 mg PO DAILY Levothyroxine Sodium [Synthroid] 150 mcg PO DAILY Carbidopa-Levodopa 25-100 mg [Sinemet 25-100 mg] 2 tab PO TID Pregabalin [Lyrica] 150 mg PO TID #9 cap Empagliflozin [Jardiance] 10 mg PO DAILY Cyanocobalamin [Vitamin B-12] 500 mcg PO DAILY Cholecalciferol [Vitamin D3 (25 Mcg = 1000 Iu)] 50 mcg PO DAILY Omeprazole 40 mg PO DAILY Discontinued Cephalexin [Keflex] 250 mg PO DAILY Nystatin 100,000 Unit/gm Powd [Mycostatin Powder] 1 applic TOPICAL BID PRN PRN Reason: Rash Magnesium Citrate and Oxide [Magnesium] 250 mg PO DAILY No Action Cranberry 450mg 450 mg PO DAILY Glucosam/Jamar-Msm1/C/Yonas/Bosw [Khzsdxhiunk-Rcqlcxruwmv-IFW Tb] 1 tab PO BID Melatonin 10 mg PO HS Elderberry Fruit [Elderberry] 350 mg PO DAILY Discharge Medication List Aspirin EC [Ecotrin Low Dose] 81 mg PO DAILY 10/01/20 [History] Carbidopa-Levodopa 25-100 mg [Sinemet 25-100 mg] 2 tab PO TID 10/01/20 [History] Levothyroxine Sodium [Synthroid] 150 mcg PO DAILY 10/01/20 [History] Tamsulosin HCl [Flomax] 0.4 mg PO DAILY 10/01/20 [History] Ascorbic Acid [Vitamin C] 1,000 mg PO DAILY tab 04/03/21 [Rx] Pregabalin [Lyrica] 150 mg PO TID #9 cap 04/03/21 [Rx] Albuterol Inhaler [Ventolin Hfa Inhaler] 2 puff INHALATION RT-Q6H PRN 07/23/22 [History] Cholecalciferol [Vitamin D3 (25 Mcg = 1000 Iu)] 50 mcg PO DAILY 07/23/22 [History] Cranberry 450mg 450 mg PO DAILY 07/23/22 [History] Cyanocobalamin [Vitamin B-12] 500 mcg PO DAILY 07/23/22 [History] Elderberry Fruit [Elderberry] 350 mg PO DAILY 07/23/22 [History] Empagliflozin [Jardiance] 10 mg PO DAILY 07/23/22 [History] Fish Oil/Dha/Epa [Fish Oil 1,200 mg Fish Oil] 1 cap PO BID 07/23/22 [History] Glucosam/Jamar-Msm1/C/Yonas/Bosw [Tgbhzvqeqhk-Mibacqrseup-NPB Tb] 1 tab PO BID 07/23/22 [History] Melatonin 10 mg PO HS 07/23/22 [History] Omeprazole 40 mg PO DAILY 07/23/22 [History] Ertapenem [INVanz] 1 gm IVPB Q24H #7 each 07/30/22 [Rx] Follow up Appointment(s)/Referral(s): Guru Pennington MD [Primary Care Provider] - 1-2 days [facility], [NON-STAFF] - 1 Week French Muro MD [STAFF PHYSICIAN] - 1 Week Kerwin Madden MD [STAFF PHYSICIAN] - 1 Week (urologist for your urinary christensen catheter) Patient Instructions/Handouts: Christensen Catheter Placement and Care (DC), Extended Spectrum Beta Lactamase (GEN), Pneumonia (DC) Activity/Diet/Wound Care/Special Instructions: Heart healthy diet, low carbohydrate 1800 kcal per day Activity as tolerated We recommend to check his sugar, glucose 4 times a day, before each meal and at bedtime. If his glucose less than 70 or more than 400 then called 911 on come to emergency room please discontinue your intravenous line (midline/PICC line) once you finish your intravenous antibiotic course in 7 days Discharge Disposition: HOME WITH HOME HEALTH SERVICES
--- NOTE | 2022-08-01 13:35 | CDI ---
Documentation Clarification Form Date: 08/01/22 From: Germaine Jimenez Admit Date: 07/23/2022 05:48:00 PM Patient Name: Nilay Busby Visit Number: [id number] Discharge Date: 07/30/2022 05:28:00 PM ATTENTION: The Clinical Documentation Specialists (CDI) and [facility] Coding Staff appreciate your assistance in clarifying documentation. Please respond to the clarification below the line at the bottom and electronically sign. The CDI & [facility] Coding staff will review the response and follow-up if needed. Please note: Queries are made part of the Legal Health Record. If you have any questions, please contact the author of this message via ITS. Dr. Bonner E Jd, UTI is documented in the H&P, PNs, consults and DS and patient has presented to ED with a Gearrdo in place per the ED Summary page 21. Additional clarification regarding the etiology of the UTI is requested. History/Risk Factors: Parkinsons, T2dm with neuropathy, Raynauds, hx of UTIs, BPH w retention Clinical Indicators: Septic shocksecondary tourinary tract infection. Patient does have history of multiple UTIsincluding ESBL and iesha chronic antibiotictherapywith Keflex. Urinalysis: Blood large, Leukocyte Esterase large, WBC 167, WBC Clumps occasional, Bacteria Many Urine culture: Escherichia coli >100,000 CFU/ML, ESBL Lab results: WBC 19.4, Neutrophils 18.0, Lactic Acid 4.6, Procalcitonin 84.80 Treatment: IV Azithromycin, IV Ceftraxone, IV Ertapenem, IV Meropenem, Please clarify the etiology of the UTI, if known: [ ] Gerardo catheter [ ] UTI not related to catheter/urostomy [ ] Other condition, please specify [ ] Unable to determine Unable to determine, i did not see the pt on admission MTDD
--- NOTE | 2022-08-05 11:28 | CDI ---
Documentation Clarification Form Date: 08/01/22 From: Germaine Jimenez Admit Date: 07/23/2022 05:48:00 PM Patient Name: Nilay Busby Visit Number: [id number] Discharge Date: 07/30/2022 05:28:00 PM ATTENTION: The Clinical Documentation Specialists (CDI) and [facility] Coding Staff appreciate your assistance in clarifying documentation. Please respond to the clarification below the line at the bottom and electronically sign. The CDI & [facility] Coding staff will review the response and follow-up if needed. Please note: Queries are made part of the Legal Health Record. If you have any questions, please contact the author of this message via ITS. Dr. Hina Pavon, UTI is documented in the H&P, PNs, consults and DS and patient has presented to ED with a Gerardo in place per the ED Summary page 21. Additional clarification regarding the etiology of the UTI is requested. History/Risk Factors: Parkinsons, T2dm with neuropathy, Raynauds, hx of UTIs, BPH w retention Clinical Indicators: Septic shocksecondary tourinary tract infection. Patient does have history of multiple UTIsincluding ESBL and iesha chronic antibiotictherapywith Keflex. Urinalysis: Blood large, Leukocyte Esterase large, WBC 167, WBC Clumps occasional, Bacteria Many Urine culture: Escherichia coli >100,000 CFU/ML, ESBL Lab results: WBC 19.4, Neutrophils 18.0, Lactic Acid 4.6, Procalcitonin 84.80 Treatment: IV Azithromycin, IV Ceftraxone, IV Ertapenem, IV Meropenem, Please clarify the etiology of the UTI, if known: [ x ] Gerardo catheter [ ] UTI not related to catheter/urostomy [ ] Other condition, please specify [ ] Unable to determine MTDD
== END 2022-07-30 17:28 | disposition home health service (06) | DRG 698 ==
LOC: EC 13:18 → 2SICU 17:48 → 4SSUR 07-26 10:10
PROVIDERS: ADMIT Internal Medicine; ATTEND Internal Medicine
PROC: 3E043XZ Introduction of Vasopressor into Central Vein, Percutaneous Approach (ICD-10-PCS; principal; 2022-07-23)
PROC: 06HY33Z Insertion of Infusion Device into Lower Vein, Percutaneous Approach (ICD-10-PCS; principal; 2022-07-23)
PROC: 05HC33Z Insertion of Infusion Device into Left Basilic Vein, Percutaneous Approach (ICD-10-PCS; 2022-07-30 09:50)
DX: T83.511A Infection and inflammatory reaction due to indwelling urethral catheter, initial encounter (principal); A41.51 Sepsis due to Escherichia coli [E. coli]; J96.01 Acute respiratory failure with hypoxia; R65.21 Severe sepsis with septic shock; J18.9 Pneumonia, unspecified organism; Z16.12 Extended spectrum beta lactamase (ESBL) resistance; N39.0 Urinary tract infection, site not specified; G20 Parkinson's disease; E11.42 Type 2 diabetes mellitus with diabetic polyneuropathy; Z20.822 Contact with and (suspected) exposure to COVID-19; Z28.310 Unvaccinated for COVID-19; N40.1 Benign prostatic hyperplasia with lower urinary tract symptoms; R33.8 Other retention of urine; I73.00 Raynaud's syndrome without gangrene; E03.9 Hypothyroidism, unspecified; E66.9 Obesity, unspecified; Z68.32 Body mass index [BMI] 32.0-32.9, adult; Z79.82 Long term (current) use of aspirin; Z79.84 Long term (current) use of oral hypoglycemic drugs; Z79.890 Hormone replacement therapy; Z79.2 Long term (current) use of antibiotics; Z79.899 Other long term (current) drug therapy; Z87.440 Personal history of urinary (tract) infections; Z86.19 Personal history of other infectious and parasitic diseases; Z71.3 Dietary counseling and surveillance; Y84.6 Urinary catheterization as the cause of abnormal reaction of the patient, or of later complication, without mention of misadventure at the time of the procedure; Z88.2 Allergy status to sulfonamides
CPT/HCPCS: 36410; 36415; 36556; 70450; 71045; 76770; 76937; 80048; 80053; 81001; 82533; 83036; 83605; 83735; 84132; 84145; 84439; 84443; 85025; 85610; 85730; 87040; 87077; 87086; 87186; 87449; 87636; 93005; 94760; 96361; 96365; 96366; 96367; 96368; 96376; 99291

== ENCOUNTER 2022-12-11 18:43 | Inpatient (IN) | payer MEDICARE, OTHER ==
[2022-12-11] MEDS ORDERED: SODIUM CHLORIDE 0.9% 1,000 ML IV ONE ×2 (19:12→21:12)
[2022-12-11] MEDS ORDERED: SODIUM CHLORIDE 0.9% 1,000 ML IV SCH (19:15)
[2022-12-11] MEDS ORDERED: ACETAMINOPHEN IV (For NPO) 1,000 MG in EMPTY BAG 1 BAG IVPB ONE (19:30)
[2022-12-11] MEDS ORDERED: ERTAPENEM 1 GM in SODIUM CHLORIDE 0.9% 50 ML IVPB ONE (19:30)
--- NOTE | 2022-12-11 19:37 | ED ---
General Adult HPI - General Source: family, EMS, RN notes reviewed, old records reviewed Mode of arrival: EMS Limitations: altered mental status, physical limitation <Scott Holloway - Last Filed: 12/11/22 22:45> <Dustin Quiroz - Last Filed: 12/12/22 08:35> - General Chief complaint: Altered Mental Status Stated complaint: sepsis Time Seen by Provider: 12/11/22 18:55 - History of Present Illness Initial comments: 72-year-old male presenting with high fever, altered mental status. Patient's daughters indicate that the patient has had similar episodes to this in the past multiple occasions which were related to UTI and sepsis. He has a history of ESBL E. coli infection. He was in his usual state of health earlier today and then developed high fever and confusion. He is altered upon arrival tach ycardic, hypotensive and febrile. (Scott Holloway) - Related Data Home Medications Medication Instructions Recorded Confirmed Aspirin EC [Ecotrin Low Dose] 81 mg PO DAILY 10/01/20 12/11/22 Carbidopa-Levodopa 25-100 mg 2 tab PO TID 10/01/20 12/11/22 [Sinemet 25-100 mg] Levothyroxine Sodium [Synthroid] 150 mcg PO DAILY 10/01/20 12/11/22 Tamsulosin HCl [Flomax] 0.4 mg PO DAILY 10/01/20 12/11/22 Cholecalciferol [Vitamin D3 (25 50 mcg PO DAILY 07/23/22 12/11/22 Mcg = 1000 Iu)] Cranberry 450mg 450 mg PO DAILY 07/23/22 12/11/22 Cyanocobalamin [Vitamin B-12] 500 mcg PO DAILY 07/23/22 12/11/22 Elderberry Fruit [Elderberry] 350 mg PO DAILY 07/23/22 12/11/22 Empagliflozin [Jardiance] 10 mg PO DAILY 07/23/22 12/11/22 Fish Oil/Dha/Epa [Fish Oil 1,200 1 cap PO BID 07/23/22 12/11/22 mg Fish Oil] Glucosam/Jamar-Msm1/C/Yonas/Bosw 1 tab PO BID 07/23/22 12/11/22 [Fspfnnhnxga-Fepqabpntld-QGQ Tb] Melatonin 10 mg PO HS 07/23/22 12/11/22 Omeprazole 40 mg PO HS 07/23/22 12/11/22 Loratadine [Claritin] 20 mg PO DAILY PRN 12/11/22 12/11/22 Magnesium 250 mg PO DAILY 12/11/22 12/11/22 Previous Rx's Medication Instructions Recorded Ascorbic Acid [Vitamin C] 1,000 mg PO DAILY tab 04/03/21 Pregabalin [Lyrica] 150 mg PO TID #9 cap 04/03/21 Allergies Allergy/AdvReac Type Severity Reaction Status Date / Time Sulfa (Sulfonamide Allergy Unknown Verified 12/11/22 21:07 Antibiotics) Review of Systems ROS Other: All systems not noted in ROS Statement are negative. <Scott Holloway - Last Filed: 12/11/22 22:45> ROS Other: All systems not noted in ROS Statement are negative. <Dustin Quiroz - Last Filed: 12/12/22 08:35> ROS Statement: Those systems with pertinent positive or pertinent negative responses have been documented in the HPI. Past Medical History Past Medical History: Diabetes Mellitus Additional Past Medical History / Comment(s): Frequent UTIs, guillian-barre syndrome, parkinsons, rt. shoulder rotator cuff repair, lasic eye surgery, L4-L5 laporoscopy History of Any Multi-Drug Resistant Organisms: ESBL Date of last positivie culture/infection: 08/16/22 MDRO Source:: URINE Past Surgical History: Back Surgery Past Psychological History: No Psychological Hx Reported Smoking Status: Never smoker Past Alcohol Use History: None Reported Past Drug Use History: None Reported <Scott Holloway - Last Filed: 12/11/22 22:45> General Exam Limitations: altered mental status, physical limitation General appearance: lethargic, obtunded Head exam: Present: atraumatic, normocephalic Eye exam: Present: PERRL ENT exam: Present: mucous membranes dry Respiratory exam: Present: normal lung sounds bilaterally. Absent: respiratory distress, wheezes Cardiovascular Exam: Present: normal rhythm, tachycardia GI/Abdominal exam: Present: soft. Absent: distended, tenderness, guarding Extremities exam: Present: normal inspection. Absent: normal capillary refill (Delayed cap refill) Neurological exam: Present: other (Patient minimally responsive) Skin exam: Present: warm, dry <Scott Holloway - Last Filed: 12/11/22 22:45> Course Vital Signs 12/11/22 12/11/22 12/11/22 18:50 19:15 19:46 Temperature 99.8 F H Pulse Rate 13 L 126 H 132 H Respiratory 16 18 18 Rate Blood Pressure 88/53 89/51 123/77 O2 Sat by Pulse 94 L 95 99 Oximetry 12/11/22 12/11/22 12/11/22 20:00 20:09 21:00 Temperature 98.9 F Pulse Rate 137 H 120 H 116 H Respiratory 16 18 21 Rate Blood Pressure 123/77 126/86 98/63 O2 Sat by Pulse 98 99 96 Oximetry 12/11/22 12/11/22 12/11/22 21:10 21:30 21:33 Temperature Pulse Rate 115 H 111 H 111 H Respiratory 22 18 Rate Blood Pressure 81/49 76/52 83/57 O2 Sat by Pulse 96 98 Oximetry 12/11/22 12/11/22 12/11/22 21:35 21:42 21:53 Temperature 98.9 F Pulse Rate 112 H 109 H 106 H Respiratory 18 Rate Blood Pressure 83/57 79/61 95/53 O2 Sat by Pulse 97 Oximetry 12/11/22 12/11/22 12/11/22 22:10 22:20 22:50 Temperature Pulse Rate 99 105 H 98 Respiratory 16 19 Rate Blood Pressure 75/51 78/46 86/55 O2 Sat by Pulse 98 99 Oximetry 12/11/22 12/12/22 12/12/22 23:12 00:00 00:45 Temperature 98.9 F Pulse Rate 98 90 Respiratory 18 18 Rate Blood Pressure 76/46 73/54 84/54 O2 Sat by Pulse 99 99 Oximetry Procedures - Central Line Placement Left Femoral Consent Obtained: emergent situation Patient Placed on Monitor/Pulse Ox: Yes MD Prep: mask, gown, gloves Central Line Prep: Chlorhexidine scrub Local Anesthesia Used: Lidocaine 2% Amount of Anesthesia Used (mls): 4 Ultrasound Used for Placement: Yes Central Line Lumen Inserted: triple Bloods Obtained for Lab: No Central Line Position: good blood return, all ports aspirated, flushed, capped, sutured in place with nylon Dressing Applied: Tegaderm Patient Tolerated Procedure: well Complications: none - Sepsis Sepsis Focused Exam #1 Time Sepsis Criteria Met: 19:10 Sepsis Focused Exam Date: 12/11/22 Sepsis Focused Exam Time: 23:45 Sepsis Focused Exam Complete: Yes Vital Signs & RN Notes Reviewed: Yes Capillary Refill: < 2 Seconds: Fingers, Toes Peripheral Pulses: Weak: Radial (R), Radial (L) Skin Color: Normal for Patient Respiratory Exam: normal lung sounds Cardiovascular Exam: regular rate, normal rhythm <Dustin Quiroz - Last Filed: 12/12/22 08:35> Medical Decision Making - Lab Data Result diagrams: 12/11/22 19:56 12/11/22 21:17 <Scott Holloway Jose - Last Filed: 12/11/22 22:45> - Lab Data Result diagrams: 12/11/22 19:56 12/12/22 02:23 <Dustin Quiroz - Last Filed: 12/12/22 08:35> - Medical Decision Making Was pt. sent in by a medical professional or institution (, PA, PHOTO STUDIO ASSISTANT, urgent care, hospital, or senior living...) When possible be specific @ -No Did you speak to anyone other than the patient for history (EMS, parent, family, police, friend...)? What history was obtained from this source @ -[Patient's daughters were at bedside Did you review nursing and triage notes (agree or disagree)? Why? @ -I reviewed and agree with nursing and triage notes Were old charts reviewed (outside hosp., previous admission, EMS record, old EKG, old radiological studies, urgent care reports/EKG's, senior living records)? Report findings @ -No old charts were reviewed Differential Diagnosis (chest pain, altered mental status, abdominal pain women, abdominal pain men, vaginal bleeding, weakness, fever, dyspnea, syncope, hea dache, dizziness, GI bleed, back pain, seizure, CVA, palpatations, mental health, musculoskeletal)? @ Differential Fever: Pneumonia, viral URI, endocarditis, myocarditis, pericarditis, otitis, sinusitis, peritonsillar Abscess, retropharyngeal Abscess, epiglottitis, peritonitis, appendicitis, Madeleine cystitis, diverticulitis, hepatitis, colitis, UTI, PID, TOA, pyelonephritis, prostatitis, epididymitis, meningitis, encephalitis, pulmonary embolism, CVA, thyroid storm, pancreatitis, adrenal crisis, cavernous sinus thrombosis, this is not meant to be an all-inclusive list. EKG interpreted by me (3pts min.). @ -Sinus tachycardia, right axis rate of 124, MD interval 150, QRS duration 105, QTC [address] segment changes. X-rays interpreted by me (1pt min.). @ -Negative for focal pneumonia on chest x-ray CT interpreted by me (1pt min.). @ -None done U/S interpreted by me (1pt. min.). @ -None done What testing was considered but not performed or refused? (CT, X-rays, U/S, labs)? Why? @ -None What meds were considered but not given or refused? Why? @ -None Did you discuss the management of the patient with other professionals (professionals i.e. , PA, PHOTO STUDIO ASSISTANT, lab, RT, psych nurse, social media director, monogram machine operator, teacher, custody officer, telephonic nurse case manager)? Give summary @ -No Was smoking cessation discussed for >3mins.? @ -No Was critical care preformed (if so, how long)? @ yes 35 min Were there social determinants of health that impacted care today? How? (Homelessness, low income, unemployed, alcoholism, drug addiction, transportation, low edu. Level, literacy, decrease access to med. care, care home, rehab)? @ -No Was there de-escalation of care discussed even if they declined (Discuss DNR or withdrawal of care, Hospice)? DNR status @ -No What co-morbidities impacted this encounter? (DM, HTN, Smoking, COPD, CAD, Cancer, CVA, ARF, Chemo, Hep., AIDS, mental health diagnosis, sleep apnea, morbid obesity)? @ -[History of recurrent UTI and sepsis Was patient admitted / discharged? Hospital course, mention meds given and route, prescriptions, significant lab abnormalities, going to OR and other pertinent info. @ -[72-year-old male with history of UTI, sepsis. Review of the previous urine cultures does reveal that he had a ESBL E. coli. He started on Invanz as well as a dose of ceftriaxone in the emergency department. He is given a 3 L bolus for sepsis on presentation. Initial lactic of 5.3. Patient is leukopenic. He has initial CMP which is concerning although this was taken off of a previous IV and was repeated in the emergency department and the redraw likely represents the correct values. Initial sodium of 118 was likely diluted. Patient's lactic will be repeated. Urinalysis is consistent with UTI and cultures of both blood and urine are pending. He'll be admitted to internal medicine with infectious disease on consult. Undiagnosed new problem with uncertain prognosis? @ -No Drug Therapy requiring intensive monitoring for toxicity (Heparin, Nitro, Insulin, Cardizem)? @ -No Were any procedures done? @ -No Diagnosis/symptom? @ -[Sepsis, UTI Acute, or Chronic, or Acute on Chronic? @ -Acute Uncomplicated (without systemic symptoms) or Complicated (systemic symptoms)? @ -Complicated Side effects of treatment? @ -No Exacerbation, Progression, or Severe Exacerbation? @ -No Poses a threat to life or bodily function? How? (Chest pain, [place], [place], pneumonia, PE, COPD, DKA, ARF, appy, cholecystitis, CVA, Diverticulitis, Homicidal, Suicidal, threat to staff... and all critical care pts) @ -[Yes, sepsis (Scott Holloway) Patient was already admitted. Seen by prior physician for urosepsis. Patient began experiencing hypotension and septic shock despite adequate fluid res uscitation with 30 mL per KG and maintenance fluids. Patient is already on IV antibiotics broad-spectrum meropenem. At this time, patient's maps of between 50 and 55 and therefore we will start the patient on peripheral norepinephrine. I consulted ICU, Dr. Lora. The [facility] was working, and accepted the patient to the ICU. Repeat lactic acid is still elevated at 5.2. He was in agreement with the plan. Patient accepted to the ICU. Patient started on low-dose peripheral norepinephrine and seem to be responding to it. I did present to the ICU after patient was admitted as patient did decompensate no one was in house to place a central line. Left femoral central venous catheter was placed by myself. Patient tolerated the procedure well. Diagnosis/symptom? @ -Septic shock Acute, or Chronic, or Acute on Chronic? @ -Acute Uncomplicated (without systemic symptoms) or Complicated (systemic symptoms)? @ -Complicated Side effects of treatment? @ -none Exacerbation, Progression, or Severe Exacerbation] @ -no Poses a threat to life or bodily function? @ -Yes (Dustin Quiroz) - Lab Data Lab Results 12/11/22 12/11/2212/11/23 Range/Units 19:05 19:20 19:20 WBC (3.8-10.6) k/uL RBC (4.30-5.90) m/uL Hgb (13.0-17.5) gm/dL Hct (39.0-53.0) % MCV (80.0-100.0) fL MCH (25.0-35.0) pg MCHC (31.0-37.0) g/dL RDW (11.5-15.5) % Plt Count (150-450) k/uL MPV Neutrophils % % Lymphocytes % % Monocytes % % Eosinophils % % Basophils % % Neutrophils # (1.3-7.7) k/uL Lymphocytes # (1.0-4.8) k/uL Monocytes # (0-1.0) k/uL Eosinophils # (0-0.7) k/uL Basophils # (0-0.2) k/uL Manual Slide Review PT (9.0-12.0) sec INR (<1.2) APTT (22.0-30.0) sec Sodium (137-145) mmol/L Potassium (3.5-5.1) mmol/L Chloride (98-107) mmol/L Carbon Dioxide (22-30) mmol/L Anion Gap mmol/L BUN (9-20) mg/dL Creatinine (0.66-1.25) mg/dL Est GFR (CKD-EPI)AfAm (>60 ml/min/1.73 sqM) Est GFR (CKD-EPI)NonAf (>60 ml/min/1.73 sqM) Glucose (74-99) mg/dL Lactic Ac Sepsis Rflx Plasma Lactic Acid Be 5.3 H* (0.7-2.0) mmol/L Calcium (8.4-10.2) mg/dL Total Bilirubin (0.2-1.3) mg/dL AST (17-59) U/L ALT (4-49) U/L Alkaline Phosphatase (38-126) U/L Total Protein (6.3-8.2) g/dL Albumin (3.5-5.0) g/dL Urine Color Light Yellow Urine Appearance Cloudy (Clear) Urine pH 5.5 (5.0-8.0) Ur Specific [place] 1.019 (1.001-1.035) Urine Protein Trace H (Negative) Urine Glucose (UA) 4+ H (Negative) Urine Ketones Negative (Negative) Urine Blood Large H (Negative) Urine Nitrite Negative (Negative) Urine Bilirubin Negative (Negative) Urine Urobilinogen <2.0 (<2.0) mg/dL Ur Leukocyte Esterase Large H (Negative) Urine RBC 145 H (0-5) /hpf Urine WBC 90 H (0-5) /hpf Urine Bacteria Moderate H (None) /hpf Urine Mucus Few H (None) /hpf Influenza Type A (PCR) Not Detected (Not Detectd) Influenza Type B (PCR) Not Detected (Not Detectd) RSV (PCR) Not Detected (Not Detectd) SARS-CoV-2 (PCR) Not Detected (Not Detectd) 12/11/22 12/11/22 12/11/22 Range/Units 19:45 19:56 19:56 WBC 3.7 L (3.8-10.6) k/uL RBC 4.56 (4.30-5.90) m/uL Hgb 13.4 (13.0-17.5) gm/dL Hct 39.9 (39.0-53.0) % MCV 87.5 (80.0-100.0) fL MCH 29.3 (25.0-35.0) pg MCHC 33.5 (31.0-37.0) g/dL RDW 15.2 (11.5-15.5) % Plt Count 103 L (150-450) k/uL MPV 9.3 Neutrophils % 93 % Lymphocytes % 4 % Monocytes % 2 % Eosinophils % 1 % Basophils % 0 % Neutrophils # 3.4 (1.3-7.7) k/uL Lymphocytes # 0.2 L (1.0-4.8) k/uL Monocytes # 0.1 (0-1.0) k/uL Eosinophils # 0.0 (0-0.7) k/uL Basophils # 0.0 (0-0.2) k/uL Manual Slide Review Performed PT 12.5 H (9.0-12.0) sec INR 1.2 H (<1.2) APTT 25.5 (22.0-30.0) sec Sodium (137-145) mmol/L Potassium (3.5-5.1) mmol/L Chloride (98-107) mmol/L Carbon Dioxide (22-30) mmol/L Anion Gap mmol/L BUN (9-20) mg/dL Creatinine (0.66-1.25) mg/dL Est GFR (CKD-EPI)AfAm (>60 ml/min/1.73 sqM) Est GFR (CKD-EPI)NonAf (>60 ml/min/1.73 sqM) Glucose (74-99) mg/dL Lactic Ac Sepsis Rflx Y Plasma Lactic Acid Be (0.7-2.0) mmol/L Calcium (8.4-10.2) mg/dL Total Bilirubin (0.2-1.3) mg/dL AST (17-59) U/L ALT (4-49) U/L Alkaline Phosphatase (38-126) U/L Total Protein (6.3-8.2) g/dL Albumin (3.5-5.0) g/dL Urine Color Urine Appearance (Clear) Urine pH (5.0-8.0) Ur Specific [place] (1.001-1.035) Urine Protein (Negative) Urine Glucose (UA) (Negative) Urine Ketones (Negative) Urine Blood (Negative) Urine Nitrite (Negative) Urine Bilirubin (Negative) Urine Urobilinogen (<2.0) mg/dL Ur Leukocyte Esterase (Negative) Urine RBC (0-5) /hpf Urine WBC (0-5) /hpf Urine Bacteria (None) /hpf Urine Mucus (None) /hpf Influenza Type A (PCR) (Not Detectd) Influenza Type B (PCR) (Not Detectd) RSV (PCR) (Not Detectd) SARS-CoV-2 (PCR) (Not Detectd) 12/11/22 12/11/22 12/11/22 Range/Units 19:56 21:17 22:09 WBC (3.8-10.6) k/uL RBC (4.30-5.90) m/uL Hgb (13.0-17.5) gm/dL Hct (39.0-53.0) % MCV (80.0-100.0) fL MCH (25.0-35.0) pg MCHC (31.0-37.0) g/dL RDW (11.5-15.5) % Plt Count (150-450) k/uL MPV Neutrophils % % Lymphocytes % % Monocytes % % Eosinophils % % Basophils % % Neutrophils # (1.3-7.7) k/uL Lymphocytes # (1.0-4.8) k/uL Monocytes # (0-1.0) k/uL Eosinophils # (0-0.7) k/uL Basophils # (0-0.2) k/uL Manual Slide Review PT (9.0-12.0) sec INR (<1.2) APTT (22.0-30.0) sec Sodium 118 L* 140 (137-145) mmol/L Potassium 3.0 L 3.2 L (3.5-5.1) mmol/L Chloride 92 L 114 H (98-107) mmol/L Carbon Dioxide 14 L 17 L (22-30) mmol/L Anion Gap 12 9 mmol/L BUN 17 18 (9-20) mg/dL Creatinine 0.66 0.78 (0.66-1.25) mg/dL Est GFR (CKD-EPI)AfAm >90 >90 (>60 ml/min/1.73 sqM) Est GFR (CKD-EPI)NonAf >90 >90 (>60 ml/min/1.73 sqM) Glucose 102 H 115 H (74-99) mg/dL Lactic Ac Sepsis Rflx Plasma Lactic Acid Be 5.2 H* (0.7-2.0) mmol/L Calcium 7.4 L 8.0 L (8.4-10.2) mg/dL Total Bilirubin 0.6 (0.2-1.3) mg/dL AST 18 (17-59) U/L ALT 11 (4-49) U/L Alkaline Phosphatase 89 (38-126) U/L Total Protein 4.6 L (6.3-8.2) g/dL Albumin 2.3 L (3.5-5.0) g/dL Urine Color Urine Appearance (Clear) Urine pH (5.0-8.0) Ur Specific [place] (1.001-1.035) Urine Protein (Negative) Urine Glucose (UA) (Negative) Urine Ketones (Negative) Urine Blood (Negative) Urine Nitrite (Negative) Urine Bilirubin (Negative) Urine Urobilinogen (<2.0) mg/dL Ur Leukocyte Esterase (Negative) Urine RBC (0-5) /hpf Urine WBC (0-5) /hpf Urine Bacteria (None) /hpf Urine Mucus (None) /hpf Influenza Type A (PCR) (Not Detectd) Influenza Type B (PCR) (Not Detectd) RSV (PCR) (Not Detectd) SARS-CoV-2 (PCR) (Not Detectd) Critical Care Time Critical Care Time: Yes Total Critical Care Time: 35 <Scott Holloway - Last Filed: 12/11/22 22:45> Disposition Is patient prescribed a controlled substance at d/c from ED?: No Time of Disposition: 22:56 <Scott Holloway - Last Filed: 12/11/22 22:45> <Dustin Quiroz - Last Filed: 12/12/22 08:35> Clinical Impression: Sepsis, Lactic acidosis, Urinary tract infection, Septic shock Disposition: ADMITTED IP TO THIS HOSP Condition: Serious
[2022-12-11 19:47] LABS: Appearance,Urine Cloudy (Clear); Bacteria,Urine Moderate /hpf; Bilirubin,Urine Negative (Negative); Blood,Urine Large (Negative); Color,Urine Light Yellow; Glucose,Urine (UA) 4+ (Negative); Ketones,Urine Negative (Negative); Leukocyte Esterase,Urine Large (Negative); Mucus,Urine Few /hpf; Nitrite,Urine Negative (Negative); PH, Urine 5.5 (5.0-8.0); Protein,Urine Trace (Negative); RBC,Urine 145 /hpf (0-5); Specific Gravity,Urine 1.019 (1.001-1.035); Urobilinogen,Urine <2.0 mg/dL (<2.0); WBC,Urine 90 /hpf (0-5)
[2022-12-11 20:09] LABS: Basophils % (A) 0 %; Eosinophils % (A) 1 %; HCT 39.9 % (39.0-53.0); HGB 13.4 gm/dL (13.0-17.5); Lymphocytes # (A) 0.2 k/uL (1.0-4.8); Lymphocytes % (A) 4 %; MCH 29.3 pg (25.0-35.0); MCHC 33.5 g/dL (31.0-37.0); MCV 87.5 fL (80.0-100.0); Mean Platelet Volume 9.3; Monocytes # (A) 0.1 k/uL (0-1.0); Monocytes % (A) 2 %; Neutrophils # (A) 3.4 k/uL (1.3-7.7); Neutrophils % (A) 93 %; Platelet Count 103 k/uL (150-450); RBC 4.56 m/uL (4.30-5.90); RDW 15.2 % (11.5-15.5); WBC 3.7 k/uL (3.8-10.6)
[2022-12-11 20:20] LABS: INR 1.2 (<1.2); Partial Thromboplastin Time 25.5 sec (22.0-30.0); Prothrombin Time 12.5 sec (9.0-12.0)
--- NOTE | 2022-12-11 20:33 | XR ---
EXAMINATION TYPE: XR chest 1V portable DATE OF EXAM: 12/11/2022 8:15 PM CLINICAL INDICATION:Male, 72 years old with history of Fever; [facility] COMPARISON: Chest radiographs from TECHNIQUE: XR chest 1V portable Frontal view of the chest. FINDINGS: Lungs/Pleura: There is no evidence of pleural effusion, focal consolidation, or pneumothorax. Pulmonary vascularity: Unremarkable. Heart/mediastinum: Cardiomediastinal silhouette is enlarged and stable. Musculoskeletal: No acute osseous pathology. IMPRESSION: No acute cardiopulmonary disease/process.
[2022-12-11 20:48] LABS: ALT 11 U/L (4-49); AST 18 U/L (17-59); African American GFR (CKD) >90 (>60 ml/min/1.73 sqM); Albumin 2.3 g/dL (3.5-5.0); Alkaline Phosphatase 89 U/L (38-126); Anion Gap 12 mmol/L; Blood Urea Nitrogen 17 mg/dL (9-20); Calcium 7.4 mg/dL (8.4-10.2); Carbon Dioxide 14 mmol/L (22-30); Chloride 92 mmol/L (98-107); Glucose 102 mg/dL (74-99); Non-African American GFR(CKD) >90 (>60 ml/min/1.73 sqM); Total Bilirubin 0.6 mg/dL (0.2-1.3); Total Protein 4.6 g/dL (6.3-8.2)
[2022-12-11 21:08] LABS: Sodium 118 mmol/L (137-145)
[2022-12-11] MEDS ORDERED: SODIUM CHLORIDE 0.9% 500 ML 500 ML IV ONE ×2 (21:26→22:26)
[2022-12-11 22:34] LABS: African American GFR (CKD) >90 (>60 ml/min/1.73 sqM); Anion Gap 9 mmol/L; Blood Urea Nitrogen 18 mg/dL (9-20); Carbon Dioxide 17 mmol/L (22-30); Chloride 114 mmol/L (98-107); Glucose 115 mg/dL (74-99); Non-African American GFR(CKD) >90 (>60 ml/min/1.73 sqM); Potassium 3.2 mmol/L (3.5-5.1); Sodium 140 mmol/L (137-145)
[2022-12-11] MEDS ORDERED: NALOXONE 0.4 MG/ML 1 ML VIAL IV PRN (22:40)
[2022-12-11] MEDS: POTASSIUM CHLORIDE 10 MEQ in WATER FOR INJECTION 1 100ML.BAG IVPB SCH (23:12)
[2022-12-12] MEDS ORDERED: NOREPINEPHRINE 4 MG in SODIUM CHLORIDE 0.9% 250 ML IV ONE ×2
[2022-12-12] MEDS: POTASSIUM CHLORIDE 10 MEQ in WATER FOR INJECTION 1 100ML.BAG IVPB SCH ×3 (00:08→02:04)
[2022-12-12] MEDS ORDERED: SODIUM CHLORIDE 0.9% 1,000 ML IV ONE (00:27)
[2022-12-12 00:50] LABS: Glucose,Whole Blood 135 mg/dL (70-110)
[2022-12-12] MEDS ORDERED: SODIUM BICARB 8.4% 50 ML SYR (1 MEQ/ML) IV STA ×2 (01:34→03:48)
[2022-12-12] MEDS: DEXTROSE 5% IN WATER 1,000 ML with SODIUM BICARB (1 MEQ/ML) 150 ML IV SCH ×3 (01:54→19:58)
[2022-12-12] MEDS ORDERED: DEXTROSE 50% SYRINGE 50 ML IVP PRN ×2 (02:54)
--- NOTE | 2022-12-12 03:00 | P.CNPUL ---
History of Present Illness Consult date: 12/12/22 Requesting physician: Dustin Quiroz Reason for consult: other (ICU management) Chief complaint: Altered mental status and fever History of present illness: I am seeing this patient in new consultation today 12/12/2022 in the emergency room for urosepsis and septic shock requiring vasopressors and admission to the intensive care unit. Patient is a 72-year-old white male with past medical h istory significant for frequent urinary tract infections and previous ESBL producing organisms, diabetes mellitus, hypothyroidism, Gullian Tucker syndrome, and Parkinson's disease. Patient is currently confused and a poor historian. He has had multiple previous hospital admissions for UTIs and urosepsis. Patient came into the hospital late last night with the chief complaints of confusion and fevers. Urinalysis was consistent with urinary tract infection. CBC on arrival showed a WBC count of 3.7, hemoglobin 318.4, hematocrit 39.9, platelets 103. Initial CMP done in the emergency room showed a sodium 118, potassium 3, chloride 92, serum bicarb 14, BUN 17, creatinine 0.66, glucose 102. Patient's sodium was felt to be dilutional per emergency room physician. Repeat sodium 1 hour later was 140. normal saline is currently infusing at 130 ml/hr. Patient is currently lying in bed, on 2 L per nasal cannula, in no acute distress. Chest x-ray on arrival showed no acute cardiopulmonary process. T- max was 99.8F. Patient has been started empirically on ertapenem due to previous ESBL producing E. coli, and an infectious disease consult has been placed. Patient's blood pressure is hypotensive despite several normal saline boluses. Patient ultimately required vasopressor support in the form of norepinephrine which is currently infusing at 0.17 mcg/kg/m. Lactic acid level on arrival was 5.3 and is down to 5.2. Blood and urine cultures are pending. Patient will be admitted to the intensive care unit once bed available. Review of Systems ROS unobtainable: due to mental status Past Medical History Past Medical History: Diabetes Mellitus Additional Past Medical History / Comment(s): Frequent UTIs, guillian-barre syndrome, parkinsons, rt. shoulder rotator cuff repair, lasic eye surgery, L4-L5 laporoscopy History of Any Multi-Drug Resistant Organisms: ESBL Date of last positivie culture/infection: 08/16/22 MDRO Source:: URINE Past Surgical History: Back Surgery Past Psychological History: No Psychological Hx Reported Smoking Status: Never smoker Past Alcohol Use History: None Reported Past Drug Use History: None Reported Medications and Allergies Home Medications Medication Instructions Recorded Confirmed Type Aspirin EC [Ecotrin Low Dose] 81 mg PO DAILY 10/01/20 12/11/22 History Carbidopa-Levodopa 25-100 mg 2 tab PO TID 10/01/20 12/11/22 History [Sinemet 25-100 mg] Levothyroxine Sodium [Synthroid] 150 mcg PO DAILY 10/01/20 12/11/22 History Tamsulosin HCl [Flomax] 0.4 mg PO DAILY 10/01/20 12/11/22 History Ascorbic Acid [Vitamin C] 1,000 mg PO DAILY tab 04/03/21 12/11/22 Rx Pregabalin [Lyrica] 150 mg PO TID #9 cap 04/03/21 12/11/22 Rx Cholecalciferol [Vitamin D3 (25 50 mcg PO DAILY 07/23/22 12/11/22 History Mcg = 1000 Iu)] Cranberry 450mg 450 mg PO DAILY 07/23/22 12/11/22 History Cyanocobalamin [Vitamin B-12] 500 mcg PO DAILY 07/23/22 12/11/22 History Elderberry Fruit [Elderberry] 350 mg PO DAILY 07/23/22 12/11/22 History Empagliflozin [Jardiance] 10 mg PO DAILY 07/23/22 12/11/22 History Fish Oil/Dha/Epa [Fish Oil 1,200 1 cap PO BID 07/23/22 12/11/22 History mg Fish Oil] Glucosam/Jamar-Msm1/C/Yonas/Bosw 1 tab PO BID 07/23/22 12/11/22 History [Nkokebofzli-Xkimxsbidtx-EFW Tb] Melatonin 10 mg PO HS 07/23/22 12/11/22 History Omeprazole 40 mg PO HS 07/23/22 12/11/22 History Loratadine [Claritin] 20 mg PO DAILY PRN 12/11/22 12/11/22 History Magnesium 250 mg PO DAILY 12/11/22 12/11/22 History Allergies Allergy/AdvReac Type Severity Reaction Status Date / Time Sulfa (Sulfonamide Allergy Unknown Verified 12/11/22 21:07 Antibiotics) Physical Exam Vitals: Vital Signs Temp Pulse Resp BP Pulse Ox 12/12/22 01:00 99.2 F 89 12 67/46 97 12/12/22 00:45 84/54 12/12/22 00:00 98.9 F 90 18 73/54 99 12/11/22 23:12 98 18 76/46 99 12/11/22 22:50 98 86/55 12/11/22 22:20 105 H 19 78/46 99 12/11/22 22:10 99 16 75/51 98 12/11/22 21:53 106 H 95/53 12/11/22 21:42 109 H 79/61 12/11/22 21:35 98.9 F 112 H 18 83/57 97 12/11/22 21:33 111 H 83/57 12/11/22 21:30 111 H 18 76/52 98 12/11/22 21:10 115 H 22 81/49 96 12/11/22 21:00 116 H 21 98/63 96 12/11/22 20:09 98.9 F 120 H 18 126/86 99 12/11/22 20:00 137 H 16 123/77 98 12/11/22 19:46 99.8 F H 132 H 18 123/77 99 12/11/22 19:15 126 H 18 89/51 95 12/11/22 18:50 13 L 16 88/53 94 L Intake and Output 12/11/22 12/11/22 12/12/22 14:59 22:59 06:59 Intake Total 188.893 Output Total 575 Balance -386.107 Intake: IV 130 Sodium Chloride 0.9% 1, 130 000 ml @ 130 mls/hr IV . Q7H42M [facility] Rx#:[id number] Intake, IV Titration 58.893 Amount Norepinephrine 4 mg In 58.893 Sodium Chloride 0.9% 250 ml @ 0.03 MCG/KG/MIN 11. 924 mls/hr IV .[id number] ONE Rx#:[id number] Output: Urine 575 Other: Voiding Method Indwelling Catheter Weight 104.326 kg 104.326 kg GENERAL EXAM: Alert but disoriented, 72-year-old white male, comfortable in no apparent distress. HEAD: Normocephalic and atraumatic EYES: Normal reaction of pupils, equal size. NOSE: Clear with pink turbinates. THROAT: No erythema or exudates. NECK: No masses, no JVD. CHEST: No chest wall deformity. LUNGS: Equal air entry with no crackles, wheeze, rhonchi or dullness. On 2 L/m nasal cannula. No conversational dyspnea or accessory muscle use.. CVS: S1 and S2 normal with no audible murmur, regular rhythm. No extra heart sounds ABDOMEN: No hepatosplenomegaly, active bowel sounds, no guarding or rigidity. No suprapubic tenderness. SPINE: No scoliosis or deformity. No CVA tenderness. SKIN: No rashes CENTRAL NERVOUS SYSTEM: No focal deficits, tone is normal in all 4 extremities. EXTREMITIES: There is no peripheral edema, clubbing, or cyanosis. Peripheral pulses are intact. Results - Laboratory Findings CBC and BMP: 12/11/22 19:56 12/12/22 02:23 PT/INR, D-dimer PT 12.5 sec (9.0-12.0) H 12/11/22 19:56 INR 1.2 (<1.2) H 12/11/22 19:56 Abnormal lab findings: Abnormal Labs 12/11/22 12/11/22 12/11/22 19:05 19:20 19:56 WBC 3.7 L Plt Count 103 L Lymphocytes # 0.2 L PT INR Sodium Potassium Chloride Carbon Dioxide Glucose POC Glucose (mg/dL) Plasma Lactic Acid Be 5.3 H* Calcium Total Protein Albumin Urine Protein Trace H Urine Glucose (UA) 4+ H Urine Blood Large H Ur Leukocyte Esterase Large H Urine RBC 145 H Urine WBC 90 H Urine Bacteria Moderate H Urine Mucus Few H 12/11/22 12/11/22 12/11/22 19:56 19:56 21:17 WBC Plt Count Lymphocytes # PT 12.5 H INR 1.2 H Sodium 118 L* Potassium 3.0 L 3.2 L Chloride 92 L 114 H Carbon Dioxide 14 L 17 L Glucose 102 H 115 H POC Glucose (mg/dL) Plasma Lactic Acid Be Calcium 7.4 L 8.0 L Total Protein 4.6 L Albumin 2.3 L Urine Protein Urine Glucose (UA) Urine Blood Ur Leukocyte Esterase Urine RBC Urine WBC Urine Bacteria Urine Mucus 12/11/22 12/12/22 22:09 00:48 WBC Plt Count Lymphocytes # PT INR Sodium Potassium Chloride Carbon Dioxide Glucose POC Glucose (mg/dL) 135 H Plasma Lactic Acid Be 5.2 H* Calcium Total Protein Albumin Urine Protein Urine Glucose (UA) Urine Blood Ur Leukocyte Esterase Urine RBC Urine WBC Urine Bacteria Urine Mucus - Diagnostic Findings Chest x-ray: image reviewed Assessment and Plan Assessment: Urosepsis and septic shock, currently requiring vasopressors in the form of norepinephrine. Patient has frequent UTIs, and recently had positive urine culture for ESBL producing E. coli. Altered mental status, likely due to metabolic encephalopathy and sepsis Lactic acidosis Metabolic acidosis, non-anion gap Hyponatremia, felt to be dilutional by ER physician. Repeat sodium 1 hr later was 140. Hypokalemia, being replaced Thrombocytopenia, probably related to sepsis. Diabetes mellitus type 2, [id number] Hypothyroidism BPH Parkinson disease Diabetic neuropathy History of Gullian Tucker syndrome Obesity with a BMI of 33 kg/m Plan: Patient's medications, labs, chest x-ray reviewed Patient was admitted to the intensive care unit, he is currently requiring high- dose norepinephrine. Patient is being covered with ertapenem for previous ESBL producing E. coli, and an infectious disease consult was placed Patient's hyponatremia was felt to be dilutional by ER physician. I did discuss this with Dr. Lora, who felt there was no clinical benefit to reversal at this point. Patient was started on sodium bicarb infusion with 3 A of sodium bicarb in D5W 130 ML's per hour. normal saline infusion discontinued. Urine and blood cultures are pending Heparin for DVT prophylaxis and Protonix for GI prophylaxis Patient's overall prognosis is guarded and his condition is critical at this time. Patient will be monitored in the intensive care unit. I have personally seen and examined the patient, performed the documentation and the assessment and plan as written. Number of minutes spent on the visit:20 Time with Patient: Greater than 30
[2022-12-12] MEDS ORDERED: LIDOCAINE 1% INJ 10MG/ML (20 ML MDV) ONE (03:02)
[2022-12-12] MEDS: VASOPRESSIN 60 UNIT in SODIUM CHLORIDE 0.9% 150 ML IV SCH ×2 (03:28→23:50)
--- NOTE | 2022-12-12 03:31 | P.PCN ---
Date of Procedure: 12/12/22 Preoperative Diagnosis: Sepsis and septic shock Postoperative Diagnosis: Sepsis and septic shock Procedure(s) Performed: Insertion of a left wrist radial arterial line Indications for Procedure: Continuous blood pressure monitoring and frequent blood draws Description of Procedure: Informed consent was obtained, and a procedural timeout was performed . The patient was placed in supine position. Mathew test was performed demonstrating adequate contralateral circulation The left radial region was prepared in a sterile fashion, and a sterile drape was applied. The left radial artery was palpated, easily cannulated, and a guidewire was placed. A Cook catheter was inserted over the guidewire, and the guidewire was removed. There was good arterial blood flow, good arterial waveform, and no complications. The line was secured with using a 3-0 silk suture.
[2022-12-12 03:45] LABS: ALT 18 U/L (4-49); AST 37 U/L (17-59); African American GFR (CKD) 87 (>60 ml/min/1.73 sqM); Alkaline Phosphatase 93 U/L (38-126); Anion Gap 13 mmol/L; Blood Urea Nitrogen 19 mg/dL (9-20); Calcium 9.2 mg/dL (8.4-10.2); Carbon Dioxide 14 mmol/L (22-30); Chloride 114 mmol/L (98-107); Glucose 101 mg/dL (74-99); Non-African American GFR(CKD) 75 (>60 ml/min/1.73 sqM); Sodium 141 mmol/L (137-145); Total Bilirubin 0.7 mg/dL (0.2-1.3); Total Protein 5.8 g/dL (6.3-8.2)
[2022-12-12 03:49] LABS: ABG Base Excess -5.3 mmol/L; ABG HCO3 20 mmol/L (21-25); ABG Oxygen Saturation 97.9 % (94-97); ABG PCO2 34 mmHg (35-45); ABG PH 7.37 (7.35-7.45); ABG PO2 101 mmHg (83-108); ABG TCO2 21 mmol/L (19-24); Allen Test Performed? Yes
[2022-12-12] MEDS: NOREPINEPHRINE 32 MG in SODIUM CHLORIDE 0.9% 218 ML IV SCH ×3 (04:54→16:50)
[2022-12-12 05:27] LABS: Glucose,Whole Blood 156 mg/dL (70-110)
[2022-12-12] MEDS: INSULIN ASPART (NovoLOG) 100 UNIT/ML VIAL SQ SCH ×4 (05:38→23:45)
[2022-12-12] MEDS ORDERED: INSULIN ASPART (NovoLOG) 100 UNIT/ML VIAL SQ SCH (07:30)
[2022-12-12] MEDS ORDERED: PANTOPRAZOLE 40 MG/10 ML VIAL IV SCH (09:00)
[2022-12-12] MEDS: HEPARIN SODIUM,PORCINE 5,000 UNIT/ML 1 ML VIAL SQ SCH ×3 (09:34→23:52)
[2022-12-12 11:46] LABS: Glucose,Whole Blood 160 mg/dL (70-110)
--- NOTE | 2022-12-12 12:29 | P.HPIM ---
History of Present Illness Patient is a 72-year-old male came in with meant complains of altered mental status patient does have history of Parkinson's but as per the nursing staff patient doesn't have any history of dementia. Patient had a low-grade temperat ure along mild neutropenia and significant abnormal urine, normal chest x-ray did patient denied any complaints of cough dysuria increased urinary frequency or urgency. Patient is alert and oriented 1-2 had history of ESBL E. coli and patient is admitted for septic shock secondary to urinary tract infection and patient is an not a problem at this time. Patient had lactic acidosis with highly elevated lactate and patient is presently on pressor support. REVIEW OF SYSTEMS: Unable to obtain and rest of the review of systems as mentioned in HPI PHYSICAL EXAMINATION: GENERAL: The patient is alert and oriented x1, not in any acute distress. Obese HEENT: Pupils are round and equally reacting to light. EOMI. No scleral icterus. No conjunctival pallor. Normocephalic, atraumatic. No pharyngeal erythema. No thyromegaly. CARDIOVASCULAR: S1 and S2 present. No murmurs, rubs, or gallops. PULMONARY: Chest is clear to auscultation, no wheezing or crackles. ABDOMEN: Soft, nontender, nondistended, normoactive bowel sounds. No palpable organomegaly. MUSCULOSKELETAL: No joint swelling or deformity. EXTREMITIES: No cyanosis, clubbing, or pedal edema. NEUROLOGICAL: Limited exam SKIN: No rashes. Assessment and plan -Septic shock secondary to urinary tract infection patient is on ertapenem because of his history of ESBL E. coli. Continue pressor support and wean off as tolerated, continue with IV fluids -Type 2 diabetes mellitus patient's home regimen was held and patient is sliding scale which is appropriate -History of Parkinson's for which patient is on carbidopa-levodopa which will be resumed -Anion gap metabolic acidosis secondary to lactic acidosis expected to improve i ts treatment of sepsis and IV fluids. Patient is presently on sodium bicarbonate drip with potassium supplementation -Non-anion gap metabolic acidosis secondary to hyperchloremia -Chronic hypomagnesemia and hypokalemia potassium. Which are being replaced -Diabetic peripheral neuropathy -based DVT prophylaxis: Subcutaneous heparin Past Medical History Past Medical History: Diabetes Mellitus Additional Past Medical History / Comment(s): Frequent UTIs, guillian-barre syndrome, parkinsons, rt. shoulder rotator cuff repair, lasic eye surgery, L4-L5 laporoscopy History of Any Multi-Drug Resistant Organisms: ESBL Date of last positivie culture/infection: 08/16/22 MDRO Source:: URINE Past Surgical History: Back Surgery Past Psychological History: No Psychological Hx Reported Smoking Status: Never smoker Past Alcohol Use History: None Reported Past Drug Use History: None Reported Medications and Allergies Home Medications Medication Instructions Recorded Confirmed Type Aspirin EC [Ecotrin Low Dose] 81 mg PO DAILY 10/01/20 12/11/22 History Carbidopa-Levodopa 25-100 mg 2 tab PO TID 10/01/20 12/11/22 History [Sinemet 25-100 mg] Levothyroxine Sodium [Synthroid] 150 mcg PO DAILY 10/01/20 12/11/22 History Tamsulosin HCl [Flomax] 0.4 mg PO DAILY 10/01/20 12/11/22 History Ascorbic Acid [Vitamin C] 1,000 mg PO DAILY tab 04/03/21 12/11/22 Rx Pregabalin [Lyrica] 150 mg PO TID #9 cap 04/03/21 12/11/22 Rx Cholecalciferol [Vitamin D3 (25 50 mcg PO DAILY 07/23/22 12/11/22 History Mcg = 1000 Iu)] Cranberry 450mg 450 mg PO DAILY 07/23/22 12/11/22 History Cyanocobalamin [Vitamin B-12] 500 mcg PO DAILY 07/23/22 12/11/22 History Elderberry Fruit [Elderberry] 350 mg PO DAILY 07/23/22 12/11/22 History Empagliflozin [Jardiance] 10 mg PO DAILY 07/23/22 12/11/22 History Fish Oil/Dha/Epa [Fish Oil 1,200 1 cap PO BID 07/23/22 12/11/22 History mg Fish Oil] Glucosam/Jamar-Msm1/C/Yonas/Bosw 1 tab PO BID 07/23/22 12/11/22 History [Zulebobodlp-Rtbukaiopat-MMH Tb] Melatonin 10 mg PO HS 07/23/22 12/11/22 History Omeprazole 40 mg PO HS 07/23/22 12/11/22 History Loratadine [Claritin] 20 mg PO DAILY PRN 12/11/22 12/11/22 History Magnesium 250 mg PO DAILY 12/11/22 12/11/22 History Allergies Allergy/AdvReac Type Severity Reaction Status Date / Time Sulfa (Sulfonamide Allergy Unknown Verified 12/11/22 21:07 Antibiotics) Physical Exam Vitals: Vital Signs Temp Pulse Resp BP Pulse Ox FiO2 12/12/22 09:45 68 16 142/77 97 12/12/22 09:30 65 15 142/77 97 12/12/22 09:15 66 16 142/77 97 12/12/22 09:00 70 16 139/78 97 12/12/22 08:45 67 13 139/78 97 12/12/22 08:30 66 16 139/78 97 12/12/22 08:15 65 15 139/78 96 12/12/22 08:12 96 12/12/22 08:00 71 16 135/80 96 12/12/22 07:45 69 16 135/80 96 12/12/22 07:30 71 16 135/80 96 12/12/22 07:15 73 16 96 12/12/22 07:00 63 14 126/75 96 12/12/22 06:45 70 14 96 12/12/22 06:30 68 14 96 12/12/22 06:15 78 16 96 12/12/22 06:00 70 13 111/71 96 12/12/22 05:45 71 13 96 12/12/22 05:30 77 14 96 12/12/22 05:15 79 14 96 12/12/22 05:00 76 13 105/68 97 12/12/22 04:45 79 13 97 12/12/22 04:30 83 13 97 12/12/22 04:15 85 13 98 12/12/22 04:00 86 12 83/61 97 12/12/22 03:45 84 12 97 12/12/22 03:30 93 13 77/51 97 12/12/22 03:15 100 13 97 12/12/22 03:00 98 14 88/50 97 12/12/22 02:45 98 14 92/68 97 12/12/22 02:30 102 H 15 81/54 98 12/12/22 02:20 96 14 74/57 98 12/12/22 02:10 92 13 71/56 98 12/12/22 02:00 93 13 90/64 98 12/12/22 01:50 99 13 99 12/12/22 01:40 93 12 73/62 98 12/12/22 01:30 89 12 97 12/12/22 01:20 88 12 73/51 98 12/12/22 01:10 88 13 70/53 98 12/12/22 01:00 99.2 F 89 12 67/46 97 12/12/22 00:45 84/54 12/12/22 00:00 98.9 F 90 18 73/54 99 12/11/22 23:12 98 18 76/46 99 12/11/22 22:50 98 86/55 12/11/22 22:20 105 H 19 78/46 99 12/11/22 22:10 99 16 75/51 98 12/11/22 21:53 106 H 95/53 12/11/22 21:42 109 H 79/61 12/11/22 21:35 98.9 F 112 H 18 83/57 97 12/11/22 21:33 111 H 83/57 12/11/22 21:30 111 H 18 76/52 98 12/11/22 21:10 115 H 22 81/49 96 12/11/22 21:00 116 H 21 98/63 96 12/11/22 20:09 98.9 F 120 H 18 126/86 99 12/11/22 20:00 137 H 16 123/77 98 12/11/22 19:46 99.8 F H 132 H 18 123/77 99 12/11/22 19:15 126 H 18 89/51 95 12/11/22 18:50 13 L 16 88/53 94 L Intake and Output 12/11/22 12/12/22 12/12/22 22:59 06:59 14:59 Intake Total 1044.090 411.131 Output Total 824 110 Balance 220.090 301.131 Intake: IV 780 365 Dextrose 5% in Water 1, 650 365 000 ml @ 130 mls/hr IV . Q8H51M [facility] with Sodium Bicarb (1 Meq/ml) 150 ml Rx#:[id number] Norepinephrine 4 mg In 0 Sodium Chloride 0.9% 250 ml @ 0.03 MCG/KG/MIN 11. 924 mls/hr IV .[id number] [facility] Rx#:[id number] Sodium Chloride 0.9% 1, 130 000 ml @ 130 mls/hr IV . Q7H42M [facility] Rx#:[id number] Intake, IV Titration 264.090 46.131 Amount Norepinephrine 32 mg In 10.090 46.131 Sodium Chloride 0.9% 218 ml @ 0.03 MCG/KG/MIN 1. 467 mls/hr IV .Q24H [facility] Rx#:[id number] Norepinephrine 4 mg In 254.000 Sodium Chloride 0.9% 250 ml @ 0.03 MCG/KG/MIN 11. 924 mls/hr IV .[id number] [facility] Rx#:[id number] Output: Urine 824 110 Other: Voiding Method Indwelling Catheter Weight 104.326 kg 104.326 kg 104.326 kg ABP, PAP, CO, CI - Last 8 Hours Arterial Blood Pressure 129/61 Arterial Blood Pressure 128/58 Arterial Blood Pressure 116/57 Arterial Blood Pressure 120/56 Arterial Blood Pressure 126/58 Arterial Blood Pressure 124/58 Arterial Blood Pressure 118/56 Arterial Blood Pressure 121/57 Arterial Blood Pressure 124/58 Arterial Blood Pressure 115/55 Arterial Blood Pressure 113/54 Arterial Blood Pressure 122/60 Arterial Blood Pressure 120/58 Arterial Blood Pressure 128/61 Arterial Blood Pressure 108/55 Arterial Blood Pressure 113/57 Arterial Blood Pressure 79/44 Arterial Blood Pressure 94/51 Arterial Blood Pressure 97/50 Arterial Blood Pressure 90/56 Arterial Blood Pressure 101/58 Results CBC & Chem 7: 12/11/22 19:56 12/12/22 02:23 Labs: Abnormal Lab Results - Last 24 Hours (Table) 12/11/22 12/11/22 12/11/22 Range/Units 19:05 19:20 19:56 WBC 3.7 L (3.8-10.6) k/uL Plt Count 103 L (150-450) k/uL Lymphocytes # 0.2 L (1.0-4.8) k/uL PT (9.0-12.0) sec INR (<1.2) ABG pCO2 (35-45) mmHg ABG HCO3 (21-25) mmol/L ABG O2 Saturation (94-97) % Sodium (137-145) mmol/L Potassium (3.5-5.1) mmol/L Chloride (98-107) mmol/L Carbon Dioxide (22-30) mmol/L Glucose (74-99) mg/dL POC Glucose (mg/dL) (70-110) mg/dL Plasma Lactic Acid Be 5.3 H* (0.7-2.0) mmol/L Calcium (8.4-10.2) mg/dL Total Protein (6.3-8.2) g/dL Albumin (3.5-5.0) g/dL Urine Protein Trace H (Negative) Urine Glucose (UA) 4+ H (Negative) Urine Blood Large H (Negative) Ur Leukocyte Esterase Large H (Negative) Urine RBC 145 H (0-5) /hpf Urine WBC 90 H (0-5) /hpf Urine Bacteria Moderate H (None) /hpf Urine Mucus Few H (None) /hpf 12/11/22 12/11/22 12/11/22 Range/Units 19:56 19:56 21:17 WBC (3.8-10.6) k/uL Plt Count (150-450) k/uL Lymphocytes # (1.0-4.8) k/uL PT 12.5 H (9.0-12.0) sec INR 1.2 H (<1.2) ABG pCO2 (35-45) mmHg ABG HCO3 (21-25) mmol/L ABG O2 Saturation (94-97) % Sodium 118 L* (137-145) mmol/L Potassium 3.0 L 3.2 L (3.5-5.1) mmol/L Chloride 92 L 114 H (98-107) mmol/L Carbon Dioxide 14 L 17 L (22-30) mmol/L Glucose 102 H 115 H (74-99) mg/dL POC Glucose (mg/dL) (70-110) mg/dL Plasma Lactic Acid Be (0.7-2.0) mmol/L Calcium 7.4 L 8.0 L (8.4-10.2) mg/dL Total Protein 4.6 L (6.3-8.2) g/dL Albumin 2.3 L (3.5-5.0) g/dL Urine Protein (Negative) Urine Glucose (UA) (Negative) Urine Blood (Negative) Ur Leukocyte Esterase (Negative) Urine RBC (0-5) /hpf Urine WBC (0-5) /hpf Urine Bacteria (None) /hpf Urine Mucus (None) /hpf 12/11/22 12/12/22 12/12/22 Range/Units 22:09 00:48 02:23 WBC (3.8-10.6) k/uL Plt Count (150-450) k/uL Lymphocytes # (1.0-4.8) k/uL PT (9.0-12.0) sec INR (<1.2) ABG pCO2 (35-45) mmHg ABG HCO3 (21-25) mmol/L ABG O2 Saturation (94-97) % Sodium (137-145) mmol/L Potassium (3.5-5.1) mmol/L Chloride (98-107) mmol/L Carbon Dioxide (22-30) mmol/L Glucose (74-99) mg/dL POC Glucose (mg/dL) 135 H (70-110) mg/dL Plasma Lactic Acid Be 5.2 H* 6.8 H* (0.7-2.0) mmol/L Calcium (8.4-10.2) mg/dL Total Protein (6.3-8.2) g/dL Albumin (3.5-5.0) g/dL Urine Protein (Negative) Urine Glucose (UA) (Negative) Urine Blood (Negative) Ur Leukocyte Esterase (Negative) Urine RBC (0-5) /hpf Urine WBC (0-5) /hpf Urine Bacteria (None) /hpf Urine Mucus (None) /hpf 12/12/22 12/12/22 12/12/22 Range/Units 02:23 03:45 05:25 WBC (3.8-10.6) k/uL Plt Count (150-450) k/uL Lymphocytes # (1.0-4.8) k/uL PT (9.0-12.0) sec INR (<1.2) ABG pCO2 34 L (35-45) mmHg ABG HCO3 20 L (21-25) mmol/L ABG O2 Saturation 97.9 H (94-97) % Sodium (137-145) mmol/L Potassium (3.5-5.1) mmol/L Chloride 114 H (98-107) mmol/L Carbon Dioxide 14 L (22-30) mmol/L Glucose 101 H (74-99) mg/dL POC Glucose (mg/dL) 156 H (70-110) mg/dL Plasma Lactic Acid Be (0.7-2.0) mmol/L Calcium (8.4-10.2) mg/dL Total Protein 5.8 L (6.3-8.2) g/dL Albumin 3.0 L (3.5-5.0) g/dL Urine Protein (Negative) Urine Glucose (UA) (Negative) Urine Blood (Negative) Ur Leukocyte Esterase (Negative) Urine RBC (0-5) /hpf Urine WBC (0-5) /hpf Urine Bacteria (None) /hpf Urine Mucus (None) /hpf 12/12/22 12/12/22 Range/Units 05:50 11:45 WBC (3.8-10.6) k/uL Plt Count (150-450) k/uL Lymphocytes # (1.0-4.8) k/uL PT (9.0-12.0) sec INR (<1.2) ABG pCO2 (35-45) mmHg ABG HCO3 (21-25) mmol/L ABG O2 Saturation (94-97) % Sodium (137-145) mmol/L Potassium (3.5-5.1) mmol/L Chloride (98-107) mmol/L Carbon Dioxide (22-30) mmol/L Glucose (74-99) mg/dL POC Glucose (mg/dL) 160 H (70-110) mg/dL Plasma Lactic Acid Be 5.2 H* (0.7-2.0) mmol/L Calcium (8.4-10.2) mg/dL Total Protein (6.3-8.2) g/dL Albumin (3.5-5.0) g/dL Urine Protein (Negative) Urine Glucose (UA) (Negative) Urine Blood (Negative) Ur Leukocyte Esterase (Negative) Urine RBC (0-5) /hpf Urine WBC (0-5) /hpf Urine Bacteria (None) /hpf Urine Mucus (None) /hpf
[2022-12-12] MEDS ORDERED: MAGNESIUM SULFATE-D5W PMX 1 GM in DEXTROSE/WATER 1 100ML.BAG IVPB ONE (13:00)
[2022-12-12 13:08] LABS: Glucose,Whole Blood 174 mg/dL (70-110)
[2022-12-12] MEDS: CARBIDOPA-LEVODOPA 25-100 MG 1 EACH TAB PO SCH ×2 (17:06→20:56)
[2022-12-12 17:52] LABS: Glucose,Whole Blood 166 mg/dL (70-110)
[2022-12-12 18:12] LABS: HCT 41.8 % (39.0-53.0); HGB 14.1 gm/dL (13.0-17.5); MCH 29.1 pg (25.0-35.0); MCHC 33.7 g/dL (31.0-37.0); MCV 86.6 fL (80.0-100.0); Mean Platelet Volume 10.2; Platelet Count 112 k/uL (150-450); RBC 4.83 m/uL (4.30-5.90); RDW 15.3 % (11.5-15.5)
[2022-12-12 18:40] LABS: Band Neutrophils % 14 %; Lymphocytes # (M) 1.12 k/uL (1.0-4.8); Metamyelocytes # (M) 0.56 k/uL (0); Metamyelocytes % 2 %; Monocytes # (M) 0.84 k/uL (0-1.0); Myelocytes # (M) 0.28 k/uL (0); Myelocytes % 1 %; Neutrophils % (M) 76 %; Nucleated Red Blood Cells 0 /100 WBC (0-0); Total Cells Counted 200
[2022-12-12 18:43] LABS: RBC Morphology Normal
[2022-12-12] MEDS: ERTAPENEM 1 GM in SODIUM CHLORIDE 0.9% 50 ML IVPB SCH (19:58)
[2022-12-12] MEDS: PANTOPRAZOLE 40 MG TABLET PO SCH (20:55)
[2022-12-12 23:46] LABS: Glucose,Whole Blood 136 mg/dL (70-110)
--- NOTE | 2022-12-12 23:47 | P.CONS ---
History of Present Illness - Reason for Consult Consult date: 12/12/22 - History of Present Illness Patient is a 72-year-old male with a past medical history significant for diabetes mellitus, Guillain-Hoffman syndrome Parkinson disease frequent fall and history of recurrent UTI, patient was brought into the ER last evening for evaluation of high fever and mental status changes, symptoms has been going on for the day the patient was brought into the hospital patient on arrival to the ER was tachycardic hypotensive and did have a fever of 99.8 F patient did have a white count of 3.7 with repeat this morning is 28,000 creatinine was normal at 1.0 lactic acid was elevated no enzymes are normal urine was positive patient has been admitted to the ICU because of hypotension requiring pressor support chest x-ray was negative for acute cardiopulmonary disease infectious disease was consulted for further management of antibiotic therapy, the patient is slightly lethargic not a very good historian however has been complaining of feeling weak denies any headache or URI symptoms no chest pain or shortness with occasional cough some mild vomiting no abdominal pain and no diarrhea Past Medical History Past Medical History: Diabetes Mellitus Additional Past Medical History / Comment(s): Frequent UTIs, guillian-barre syndrome, parkinsons, rt. shoulder rotator cuff repair, lasic eye surgery, L4-L5 laporoscopy History of Any Multi-Drug Resistant Organisms: ESBL Year Discovered:: 08/16/22 MDRO Source:: URINE Past Surgical History: Back Surgery Past Psychological History: No Psychological Hx Reported Smoking Status: Never smoker Past Alcohol Use History: None Reported Past Drug Use History: None Reported Medications and Allergies Home Medications Medication Instructions Recorded Confirmed Type Aspirin EC [Ecotrin Low Dose] 81 mg PO DAILY 10/01/20 12/11/22 History Carbidopa-Levodopa 25-100 mg 2 tab PO TID 10/01/20 12/11/22 History [Sinemet 25-100 mg] Levothyroxine Sodium [Synthroid] 150 mcg PO DAILY 10/01/20 12/11/22 History Tamsulosin HCl [Flomax] 0.4 mg PO DAILY 10/01/20 12/11/22 History Ascorbic Acid [Vitamin C] 1,000 mg PO DAILY tab 04/03/21 12/11/22 Rx Pregabalin [Lyrica] 150 mg PO TID #9 cap 04/03/21 12/11/22 Rx Cholecalciferol [Vitamin D3 (25 50 mcg PO DAILY 07/23/22 12/11/22 History Mcg = 1000 Iu)] Cranberry 450mg 450 mg PO DAILY 07/23/22 12/11/22 History Cyanocobalamin [Vitamin B-12] 500 mcg PO DAILY 07/23/22 12/11/22 History Elderberry Fruit [Elderberry] 350 mg PO DAILY 07/23/22 12/11/22 History Empagliflozin [Jardiance] 10 mg PO DAILY 07/23/22 12/11/22 History Fish Oil/Dha/Epa [Fish Oil 1,200 1 cap PO BID 07/23/22 12/11/22 History mg Fish Oil] Glucosam/Jamar-Msm1/C/Yonas/Bosw 1 tab PO BID 07/23/22 12/11/22 History [Jqobmerdxlf-Iyzhcadclzu-JPP Tb] Melatonin 10 mg PO HS 07/23/22 12/11/22 History Omeprazole 40 mg PO HS 07/23/22 12/11/22 History Loratadine [Claritin] 20 mg PO DAILY PRN 12/11/22 12/11/22 History Magnesium 250 mg PO DAILY 12/11/22 12/11/22 History Allergies Allergy/AdvReac Type Severity Reaction Status Date / Time Sulfa (Sulfonamide Allergy Unknown Verified 12/11/22 21:07 Antibiotics) Physical Exam Vitals: Vital Signs Temp Pulse Resp BP Pulse Ox FiO2 12/12/22 09:45 68 16 142/77 97 12/12/22 09:30 65 15 142/77 97 12/12/22 09:15 66 16 142/77 97 12/12/22 09:00 70 16 139/78 97 12/12/22 08:45 67 13 139/78 97 12/12/22 08:30 66 16 139/78 97 12/12/22 08:15 65 15 139/78 96 12/12/22 08:12 96 12/12/22 08:00 71 16 135/80 96 12/12/22 07:45 69 16 135/80 96 12/12/22 07:30 71 16 135/80 96 12/12/22 07:15 73 16 96 12/12/22 07:00 63 14 126/75 96 12/12/22 06:45 70 14 96 12/12/22 06:30 68 14 96 12/12/22 06:15 78 16 96 12/12/22 06:00 70 13 111/71 96 12/12/22 05:45 71 13 96 12/12/22 05:30 77 14 96 12/12/22 05:15 79 14 96 12/12/22 05:00 76 13 105/68 97 12/12/22 04:45 79 13 97 12/12/22 04:30 83 13 97 12/12/22 04:15 85 13 98 12/12/22 04:00 86 12 83/61 97 12/12/22 03:45 84 12 97 12/12/22 03:30 93 13 77/51 97 12/12/22 03:15 100 13 97 12/12/22 03:00 98 14 88/50 97 12/12/22 02:45 98 14 92/68 97 12/12/22 02:30 102 H 15 81/54 98 12/12/22 02:20 96 14 74/57 98 12/12/22 02:10 92 13 71/56 98 12/12/22 02:00 93 13 90/64 98 12/12/22 01:50 99 13 99 12/12/22 01:40 93 12 73/62 98 12/12/22 01:30 89 12 97 12/12/22 01:20 88 12 73/51 98 12/12/22 01:10 88 13 70/53 98 12/12/22 01:00 99.2 F 89 12 67/46 97 12/12/22 00:45 84/54 12/12/22 00:00 98.9 F 90 18 73/54 99 12/11/22 23:12 98 18 76/46 99 12/11/22 22:50 98 86/55 12/11/22 22:20 105 H 19 78/46 99 12/11/22 22:10 99 16 75/51 98 12/11/22 21:53 106 H 95/53 12/11/22 21:42 109 H 79/61 12/11/22 21:35 98.9 F 112 H 18 83/57 97 12/11/22 21:33 111 H 83/57 12/11/22 21:30 111 H 18 76/52 98 12/11/22 21:10 115 H 22 81/49 96 12/11/22 21:00 116 H 21 98/63 96 12/11/22 20:09 98.9 F 120 H 18 126/86 99 12/11/22 20:00 137 H 16 123/77 98 12/11/22 19:46 99.8 F H 132 H 18 123/77 99 12/11/22 19:15 126 H 18 89/51 95 12/11/22 18:50 13 L 16 88/53 94 L Intake and Output 12/11/22 12/12/22 12/12/22 22:59 06:59 14:59 Intake Total 1044.090 411.131 Output Total 824 110 Balance 220.090 301.131 Intake: IV 780 365 Dextrose 5% in Water 1, 650 365 000 ml @ 130 mls/hr IV . Q8H51M [facility] with Sodium Bicarb (1 Meq/ml) 150 ml Rx#:[id number] Norepinephrine 4 mg In 0 Sodium Chloride 0.9% 250 ml @ 0.03 MCG/KG/MIN 11. 924 mls/hr IV .[id number] [facility] Rx#:[id number] Sodium Chloride 0.9% 1, 130 000 ml @ 130 mls/hr IV . Q7H42M [facility] Rx#:[id number] Intake, IV Titration 264.090 46.131 Amount Norepinephrine 32 mg In 10.090 46.131 Sodium Chloride 0.9% 218 ml @ 0.03 MCG/KG/MIN 1. 467 mls/hr IV .Q24H [facility] Rx#:[id number] Norepinephrine 4 mg In 254.000 Sodium Chloride 0.9% 250 ml @ 0.03 MCG/KG/MIN 11. 924 mls/hr IV .[id number] [facility] Rx#:[id number] Output: Urine 824 110 Other: Voiding Method Indwelling Catheter Weight 104.326 kg 104.326 kg ABP, PAP, CO, CI - Last 8 Hours Arterial Blood Pressure 129/61 Arterial Blood Pressure 128/58 Arterial Blood Pressure 116/57 Arterial Blood Pressure 120/56 Arterial Blood Pressure 126/58 Arterial Blood Pressure 124/58 Arterial Blood Pressure 118/56 Arterial Blood Pressure 121/57 Arterial Blood Pressure 124/58 Arterial Blood Pressure 115/55 Arterial Blood Pressure 113/54 Arterial Blood Pressure 122/60 Arterial Blood Pressure 120/58 Arterial Blood Pressure 128/61 Arterial Blood Pressure 108/55 Arterial Blood Pressure 113/57 Arterial Blood Pressure 79/44 Arterial Blood Pressure 94/51 Arterial Blood Pressure 97/50 Arterial Blood Pressure 90/56 Arterial Blood Pressure 101/58 Arterial Blood Pressure 106/59 Arterial Blood Pressure 114/57 Arterial Blood Pressure 90/50 Results CBC & Chem 7: 12/13/22 04:10 12/13/22 04:10 Labs: Abnormal Lab Results - Last 24 Hours (Table) 12/11/22 12/11/22 12/11/22 Range/Units 19:05 19:20 19:56 WBC 3.7 L (3.8-10.6) k/uL Plt Count 103 L (150-450) k/uL Lymphocytes # 0.2 L (1.0-4.8) k/uL PT (9.0-12.0) sec INR (<1.2) ABG pCO2 (35-45) mmHg ABG HCO3 (21-25) mmol/L ABG O2 Saturation (94-97) % Sodium (137-145) mmol/L Potassium (3.5-5.1) mmol/L Chloride (98-107) mmol/L Carbon Dioxide (22-30) mmol/L Glucose (74-99) mg/dL POC Glucose (mg/dL) (70-110) mg/dL Plasma Lactic Acid Be 5.3 H* (0.7-2.0) mmol/L Calcium (8.4-10.2) mg/dL Total Protein (6.3-8.2) g/dL Albumin (3.5-5.0) g/dL Urine Protein Trace H (Negative) Urine Glucose (UA) 4+ H (Negative) Urine Blood Large H (Negative) Ur Leukocyte Esterase Large H (Negative) Urine RBC 145 H (0-5) /hpf Urine WBC 90 H (0-5) /hpf Urine Bacteria Moderate H (None) /hpf Urine Mucus Few H (None) /hpf 12/11/22 12/11/22 12/11/22 Range/Units 19:56 19:56 21:17 WBC (3.8-10.6) k/uL Plt Count (150-450) k/uL Lymphocytes # (1.0-4.8) k/uL PT 12.5 H (9.0-12.0) sec INR 1.2 H (<1.2) ABG pCO2 (35-45) mmHg ABG HCO3 (21-25) mmol/L ABG O2 Saturation (94-97) % Sodium 118 L* (137-145) mmol/L Potassium 3.0 L 3.2 L (3.5-5.1) mmol/L Chloride 92 L 114 H (98-107) mmol/L Carbon Dioxide 14 L 17 L (22-30) mmol/L Glucose 102 H 115 H (74-99) mg/dL POC Glucose (mg/dL) (70-110) mg/dL Plasma Lactic Acid Be (0.7-2.0) mmol/L Calcium 7.4 L 8.0 L (8.4-10.2) mg/dL Total Protein 4.6 L (6.3-8.2) g/dL Albumin 2.3 L (3.5-5.0) g/dL Urine Protein (Negative) Urine Glucose (UA) (Negative) Urine Blood (Negative) Ur Leukocyte Esterase (Negative) Urine RBC (0-5) /hpf Urine WBC (0-5) /hpf Urine Bacteria (None) /hpf Urine Mucus (None) /hpf 12/11/22 12/12/22 12/12/22 Range/Units 22:09 00:48 02:23 WBC (3.8-10.6) k/uL Plt Count (150-450) k/uL Lymphocytes # (1.0-4.8) k/uL PT (9.0-12.0) sec INR (<1.2) ABG pCO2 (35-45) mmHg ABG HCO3 (21-25) mmol/L ABG O2 Saturation (94-97) % Sodium (137-145) mmol/L Potassium (3.5-5.1) mmol/L Chloride (98-107) mmol/L Carbon Dioxide (22-30) mmol/L Glucose (74-99) mg/dL POC Glucose (mg/dL) 135 H (70-110) mg/dL Plasma Lactic Acid Be 5.2 H* 6.8 H* (0.7-2.0) mmol/L Calcium (8.4-10.2) mg/dL Total Protein (6.3-8.2) g/dL Albumin (3.5-5.0) g/dL Urine Protein (Negative) Urine Glucose (UA) (Negative) Urine Blood (Negative) Ur Leukocyte Esterase (Negative) Urine RBC (0-5) /hpf Urine WBC (0-5) /hpf Urine Bacteria (None) /hpf Urine Mucus (None) /hpf 12/12/22 12/12/22 12/12/22 Range/Units 02:23 03:45 05:25 WBC (3.8-10.6) k/uL Plt Count (150-450) k/uL Lymphocytes # (1.0-4.8) k/uL PT (9.0-12.0) sec INR (<1.2) ABG pCO2 34 L (35-45) mmHg ABG HCO3 20 L (21-25) mmol/L ABG O2 Saturation 97.9 H (94-97) % Sodium (137-145) mmol/L Potassium (3.5-5.1) mmol/L Chloride 114 H (98-107) mmol/L Carbon Dioxide 14 L (22-30) mmol/L Glucose 101 H (74-99) mg/dL POC Glucose (mg/dL) 156 H (70-110) mg/dL Plasma Lactic Acid Be (0.7-2.0) mmol/L Calcium (8.4-10.2) mg/dL Total Protein 5.8 L (6.3-8.2) g/dL Albumin 3.0 L (3.5-5.0) g/dL Urine Protein (Negative) Urine Glucose (UA) (Negative) Urine Blood (Negative) Ur Leukocyte Esterase (Negative) Urine RBC (0-5) /hpf Urine WBC (0-5) /hpf Urine Bacteria (None) /hpf Urine Mucus (None) /hpf 12/12/22 Range/Units 05:50 WBC (3.8-10.6) k/uL Plt Count (150-450) k/uL Lymphocytes # (1.0-4.8) k/uL PT (9.0-12.0) sec INR (<1.2) ABG pCO2 (35-45) mmHg ABG HCO3 (21-25) mmol/L ABG O2 Saturation (94-97) % Sodium (137-145) mmol/L Potassium (3.5-5.1) mmol/L Chloride (98-107) mmol/L Carbon Dioxide (22-30) mmol/L Glucose (74-99) mg/dL POC Glucose (mg/dL) (70-110) mg/dL Plasma Lactic Acid Be 5.2 H* (0.7-2.0) mmol/L Calcium (8.4-10.2) mg/dL Total Protein (6.3-8.2) g/dL Albumin (3.5-5.0) g/dL Urine Protein (Negative) Urine Glucose (UA) (Negative) Urine Blood (Negative) Ur Leukocyte Esterase (Negative) Urine RBC (0-5) /hpf Urine WBC (0-5) /hpf Urine Bacteria (None) /hpf Urine Mucus (None) /hpf Assessment and Plan Plan: 1patient presented to hospital with sepsis in this patient with a fever tachycardia elevated white count source is likely urinary in this patient who do have a history of recurrent UTI with a positive UA and history of ESBL E. coli we will need to cover for resistant gram-negative while waiting for the culture to finalize 2-we will check ultrasound of the kidney bladder to make sure no evidence of any structural abnormality or obstructive uropathy 3-we will keep the patient on Invanz 1 g daily while waiting for the culture to finalize We will follow on clinical condition and cultures to further adjust medication if needed Thank you for this consultation we will follow the patient along with you Dictation was produced using [employer] dictation software. please excuse any grammatical, word or spelling errors. Time with Patient: Greater than 30
[2022-12-13 04:40] LABS: Basophils % (A) 0 %; Eosinophils % (A) 0 %; HCT 39.9 % (39.0-53.0); HGB 13.2 gm/dL (13.0-17.5); Lymphocytes # (A) 1.1 k/uL (1.0-4.8); Lymphocytes % (A) 5 %; MCH 28.5 pg (25.0-35.0); MCV 86.3 fL (80.0-100.0); Mean Platelet Volume 10.1; Monocytes # (A) 1.4 k/uL (0-1.0); Monocytes % (A) 6 %; Neutrophils # (A) 22.6 k/uL (1.3-7.7); Neutrophils % (A) 89 %; RBC 4.63 m/uL (4.30-5.90); RDW 15.4 % (11.5-15.5); WBC 25.4 k/uL (3.8-10.6)
[2022-12-13 04:47] LABS: African American GFR (CKD) >90 (>60 ml/min/1.73 sqM); Anion Gap 7 mmol/L; Blood Urea Nitrogen 20 mg/dL (9-20); Carbon Dioxide 28 mmol/L (22-30); Chloride 104 mmol/L (98-107); Glucose 154 mg/dL (74-99); Magnesium 1.8 mg/dL (1.6-2.3); Non-African American GFR(CKD) 83 (>60 ml/min/1.73 sqM); Potassium 3.6 mmol/L (3.5-5.1); Sodium 139 mmol/L (137-145)
[2022-12-13] MEDS ORDERED: MAGNESIUM SULFATE-D5W PMX 1 GM in DEXTROSE/WATER 1 100ML.BAG IVPB ONE (05:09)
[2022-12-13] MEDS ORDERED: Magnesium Replacement Protocol 1 EACH MISC MISCELLANE PRN (05:09)
[2022-12-13] MEDS: DEXTROSE 5% IN WATER 1,000 ML with SODIUM BICARB (1 MEQ/ML) 150 ML IV SCH (05:43)
[2022-12-13 06:25] LABS: Platelet Count 87 k/uL (150-450)
[2022-12-13] MEDS: POTASSIUM CHLORIDE 10 MEQ in WATER FOR INJECTION 1 100ML.BAG IVPB SCH ×2 (06:38→11:23)
[2022-12-13 07:04] LABS: Glucose,Whole Blood 170 mg/dL (70-110)
[2022-12-13] MEDS: INSULIN ASPART (NovoLOG) 100 UNIT/ML VIAL SQ SCH ×4 (07:06→23:41)
--- NOTE | 2022-12-13 08:40 | US ---
EXAMINATION TYPE: US kidneys/renal and bladder DATE OF EXAM: 12/13/2022 COMPARISON: NONE CLINICAL INDICATION: Male, 72 years old with history of uti and bacteremia; ICU patient with UTI EXAM MEASUREMENTS: Right Kidney: 10.9 x 3.6 x 5.3 cm Left Kidney: 5.7 x 3.8 x 5.7 cm Right Kidney: No hydronephrosis or masses seen Left Kidney: No hydronephrosis or masses seen Bladder: Suboptimal assessment due to Gerardo IMPRESSION: No hydronephrosis on either side.
[2022-12-13] MEDS ORDERED: SODIUM CHLORIDE 0.9% 1,000 ML IV ONE (09:17)
[2022-12-13] MEDS: SODIUM CHLORIDE 0.9% 1,000 ML IV SCH ×2 (10:05→20:26)
[2022-12-13] MEDS: CARBIDOPA-LEVODOPA 25-100 MG 1 EACH TAB PO SCH ×3 (11:23→21:28)
[2022-12-13] MEDS: HEPARIN SODIUM,PORCINE 5,000 UNIT/ML 1 ML VIAL SQ SCH ×3 (11:23→23:57)
[2022-12-13] MEDS: LEVOTHYROXINE 75 MCG TAB PO SCH (11:24)
[2022-12-13] MEDS: MAGNESIUM OXIDE 400 MG TAB PO SCH (11:25)
[2022-12-13] MEDS: TAMSULOSIN 0.4 MG CAP.ER.24H PO SCH (11:25)
[2022-12-13] MEDS: NOREPINEPHRINE 32 MG in SODIUM CHLORIDE 0.9% 218 ML IV SCH (11:42)
[2022-12-13 11:48] LABS: Glucose,Whole Blood 109 mg/dL (70-110)
--- NOTE | 2022-12-13 12:21 | P.PN ---
Subjective Progress Note Date: 12/13/22 Principal diagnosis: Septic shock and urosepsis I am seeing this patient in new consultation today 12/12/2022 in the emergency room for urosepsis and septic shock requiring vasopressors and admission to the intensive care unit. Patient is a 72-year-old white male with past medical history significant for frequent urinary tract infections and previous ESBL producing organisms, diabetes mellitus, hypothyroidism, Gullian Boyle syndrome, and Parkinson's disease. Patient is currently confused and a poor historian. He has had multiple previous hospital admissions for UTIs and urosepsis. Patient came into the hospital late last night with the chief complaints of confusion and fevers. Urinalysis was consistent with urinary tract infection. CBC on arrival showed a WBC count of 3.7, hemoglobin 318.4, hematocrit 39.9, platelets 103. Initial CMP done in the emergency room showed a sodium 118, potassium 3, chloride 92, serum bicarb 14, BUN 17, creatinine 0.66, glucose 102. Patient's sodium was felt to be dilutional per emergency room physician. Repeat sodium 1 hour later was 140. normal saline is currently infusing at 130 ml/hr. Patient is currently lying in bed, on 2 L per nasal cannula, in no acute distress. Chest x-ray on arrival showed no acute cardiopulmonary process. T- max was 99.8F. Patient has been started empirically on ertapenem due to previous ESBL producing E. coli, and an infectious disease consult has been placed. Patient's blood pressure is hypotensive despite several normal saline boluses. Patient ultimately required vasopressor support in the form of norepinephrine which is currently infusing at 0.17 mcg/kg/m. Lactic acid level on arrival was 5.3 and is down to 5.2. Blood and urine cultures are pending. Patient will be admitted to the intensive care unit once bed available. Patient was reevaluated today on , remains in the ICU, still requiring vasopressin and norepinephrine his blood cultures and urine cultures a re positive for gram-negative bacilli, strongly suspect ESBL/E. coli. Patient remains on Invanz clinically feeling better mentation is improving his vasopressin was at 0.04 and I have discontinued vasopressin To him on norepinephrine at 0.26 plan to taper that down further and possibly discontinue in the meantime remains on IV fluid at 1 50 mL per hour and I have discontinued his bicarb drip as his acidosis has corrected nicely. Patient is still on 2 L nasal cannula not in distress. WBC count is improving down to 25.4 hemoglobin is 13.2, basic metabolic profile and renal profile are normal Objective - Vital Signs Vital signs: Vital Signs Temp 98.1 F 12/13/22 08:00 Pulse 87 12/13/22 11:00 Resp 18 12/13/22 11:00 BP 112/63 12/13/22 11:00 Pulse Ox 96 12/13/22 11:00 FiO2 96 12/12/22 08:12 Intake & Output 12/12/22 12/13/22 12/13/22 18:59 06:59 18:59 Intake Total 3611.236 6805.764 1833.300 Output Total 605 1430 878 Balance 1223.357 260.764 955.300 Weight 104.326 kg 100.4 kg Intake: IV 1577.32 1566.12 520 Dextrose 5% in Water 1, 1510 1560 520 000 ml @ 130 mls/hr IV . Q8H51M [facility] with Sodium Bicarb (1 Meq/ml) 150 ml Rx#:[id number] Vasopressin 60 unit In 67.32 6.12 Sodium Chloride 0.9% 150 ml @ 0.03 UNITS/MIN 4.59 mls/hr IV .Q24H [facility] Rx#: [id number] Intake, IV Titration 251.037 304.912 1529.300 Amount Magnesium Sulfate-D5w Pmx 100 1 gm In Dextrose/Water 1 100ml.bag @ 100 mls/hr IVPB ONCE ONE Rx#: [id number] Norepinephrine 32 mg In 151.037 254.752 Sodium Chloride 0.9% 218 ml @ 0.03 MCG/KG/MIN 1. 467 mls/hr IV .Q24H [facility] Rx#:[id number] Sodium Chloride 0.9% 1, 1000 000 ml @ 130 mls/hr IV . Q7H42M [facility] Rx#:[id number] Vasopressin 60 unit In 124.644 58.548 Sodium Chloride 0.9% 150 ml @ 0.03 UNITS/MIN 4.59 mls/hr IV .Q24H [facility] Rx#: [id number] Output: Urine 605 1430 878 Other: Voiding Method Indwelling Catheter Indwelling Catheter Indwelling Catheter ABP, PAP, CO, CI - Last Documented Arterial Blood Pressure 110/58 - Exam Physical Exam: Revealed 72-year-old white male on nasal cannula not in distress Head: Atraumatic, normocephalic. HEENT:[Neck is supple.] [No neck masses.] [No thyromegaly.] [No JVD.] Chest: [Clear throughout, no crackles, no rhonchi, no wheezes.] Cardiac Exam: [Normal S1 and S2, no S3 gallop, no murmur.] Abdomen: [Soft, nontender, no megaly, no rebound, no guarding, normal bowel sounds.] Extremities: [No clubbing, no edema, no cyanosis.] Neurological Exam: [No focal neurologic deficit.] Alert and oriented 3 Psychiatric: Normal mood affect and normal mental status examination. Skin: No rashes - Labs CBC & Chem 7: 12/13/22 04:10 12/13/22 04:10 Labs: Abnormal Lab Results - Last 24 Hours (Table) 12/12/22 12/12/22 12/12/22 Range/Units 13:05 17:51 18:08 WBC 28.0 H (3.8-10.6) k/uL Plt Count 112 L (150-450) k/uL Neutrophils # (1.3-7.7) k/uL Neutrophils # (Manual) 25.20 H (1.3-7.7) k/uL Monocytes # (0-1.0) k/uL Metamyelocytes # (Man) 0.56 H (0) k/uL Myelocytes # (Manual) 0.28 H (0) k/uL Glucose (74-99) mg/dL POC Glucose (mg/dL) 174 H 166 H (70-110) mg/dL 12/12/22 12/13/22 12/13/22 Range/Units 23:43 04:10 04:10 WBC 25.4 H (3.8-10.6) k/uL Plt Count 87 L (150-450) k/uL Neutrophils # 22.6 H (1.3-7.7) k/uL Neutrophils # (Manual) (1.3-7.7) k/uL Monocytes # 1.4 H (0-1.0) k/uL Metamyelocytes # (Man) (0) k/uL Myelocytes # (Manual) (0) k/uL Glucose 154 H (74-99) mg/dL POC Glucose (mg/dL) 136 H (70-110) mg/dL 12/13/22 Range/Units 07:03 WBC (3.8-10.6) k/uL Plt Count (150-450) k/uL Neutrophils # (1.3-7.7) k/uL Neutrophils # (Manual) (1.3-7.7) k/uL Monocytes # (0-1.0) k/uL Metamyelocytes # (Man) (0) k/uL Myelocytes # (Manual) (0) k/uL Glucose (74-99) mg/dL POC Glucose (mg/dL) 170 H (70-110) mg/dL Microbiology - Last 24 Hours (Table) 12/11/22 19:45 Blood Culture Gram Stain - Preliminary Blood Blood Culture - Preliminary Gram Neg Bacilli 12/11/22 19:30 Blood Culture Gram Stain - Preliminary Blood Blood Culture - Preliminary Gram Neg Bacilli 12/11/22 19:20 Urine Culture - Preliminary Urine,Voided Gram Neg Bacilli Assessment and Plan Assessment: Urosepsis and septic shock, currently requiring vasopressors in the form of norepinephrine. Patient has frequent UTIs, and recently had positive urine culture for ESBL producing E. coli. Impression: Septic shock secondary to urosepsis Acute urosepsis Acute non-anion gap metabolic acidosis Acute lactic acidosis Thrombocytopenia secondary to sepsis Hypothyroidism Parkinson disease Diabetic neuropathy History of Guillain-Hoffman syndrome Acute metabolic encephalopathy improved Plan: Continue to monitor in the ICU as long as the patient is requiring pressors Discontinue vasopressin and continue norepinephrine Discontinue sodium bicarb drip Continue GI and DVT prophylaxis Monitor electrolytes and adjust accordingly Continue 0.9 normal saline Continue Invanz Awaiting for the final blood culture urine culture We will continue to follow. Prognosis remains relatively guarded Time with Patient: Less than 30
[2022-12-13] MEDS: ASPIRIN 81 MG PO SCH (13:02)
--- NOTE | 2022-12-13 16:41 | P.PN ---
Subjective Progress Note Date: 12/13/22 Principal diagnosis: Sepsis, UTI and bacteremia Patient is a 72-year-old male with a past medical history significant for diabetes mellitus, Guillain-Hoffman syndrome Parkinson disease frequent fall and history of recurrent UTI has been brought to the hospital for evaluation of fever and mental status changes, initially admitted to ICU because of hypertension. On today's evaluation that is 12/13/2022, the patient continues to be afebrile the patient is breathing comfortably on room air, the patient denies chest pain or cough, patient denies abdominal pain and no nausea/vomiting and no diarrhea has been reported Patient did have white endocrine 5.4, creatinine 0.93, blood in urine with gram- negative bacilli, ID sensitivities pending Objective - Vital Signs Vital signs: Vital Signs Temp 98.1 F 12/13/22 08:00 Pulse 95 12/13/22 13:15 Resp 24 12/13/22 13:15 BP 96/59 12/13/22 13:15 Pulse Ox 96 12/13/22 13:15 FiO2 96 12/12/22 08:12 Intake & Output 12/12/22 12/13/22 12/13/22 18:59 06:59 18:59 Intake Total 2407.527 8160.764 2626.569 Output Total 605 1430 1303 Balance 1223.357 254.842 4065.569 Weight 104.326 kg 100.4 kg Intake: IV 1577.32 1566.12 780 Dextrose 5% in Water 1, 1510 1560 390 000 ml @ 130 mls/hr IV . Q8H51M [facility] with Sodium Bicarb (1 Meq/ml) 150 ml Rx#:[id number] Sodium Chloride 0.9% 1, 390 000 ml @ 130 mls/hr IV . Q7H42M [facility] Rx#:[id number] Vasopressin 60 unit In 67.32 6.12 Sodium Chloride 0.9% 150 ml @ 0.03 UNITS/MIN 4.59 mls/hr IV .Q24H [facility] Rx#: [id number] Intake, IV Titration 251.037 213.270 2422.569 Amount Magnesium Sulfate-D5w Pmx 100 1 gm In Dextrose/Water 1 100ml.bag @ 100 mls/hr IVPB ONCE ONE Rx#: [id number] Norepinephrine 32 mg In 151.037 268.021 Sodium Chloride 0.9% 218 ml @ 0.03 MCG/KG/MIN 1. 467 mls/hr IV .Q24H [facility] Rx#:[id number] Sodium Chloride 0.9% 1, 1520 000 ml @ 130 mls/hr IV . Q7H42M [facility] Rx#:[id number] Vasopressin 60 unit In 124.644 58.548 Sodium Chloride 0.9% 150 ml @ 0.03 UNITS/MIN 4.59 mls/hr IV .Q24H [facility] Rx#: [id number] Output: Urine 605 1430 1303 Other: Voiding Method Indwelling Catheter Indwelling Catheter Indwelling Catheter ABP, PAP, CO, CI - Last Documented Arterial Blood Pressure 105/56 - Exam GENERAL DESCRIPTION: An elderly male lying in bed in no distress RESPIRATORY SYSTEM: Unlabored breathing , decreased breath sounds at bases HEART: S1 S2 regular rate and rhythm , ABDOMEN: Soft , no tenderness EXTREMITIES: No edema feet - Labs CBC & Chem 7: 12/13/22 04:10 12/13/22 04:10 Labs: Abnormal Lab Results - Last 24 Hours (Table) 12/12/22 12/12/22 12/12/22 Range/Units 17:51 18:08 23:43 WBC 28.0 H (3.8-10.6) k/uL Plt Count 112 L (150-450) k/uL Neutrophils # (1.3-7.7) k/uL Neutrophils # (Manual) 25.20 H (1.3-7.7) k/uL Monocytes # (0-1.0) k/uL Metamyelocytes # (Man) 0.56 H (0) k/uL Myelocytes # (Manual) 0.28 H (0) k/uL Glucose (74-99) mg/dL POC Glucose (mg/dL) 166 H 136 H (70-110) mg/dL 12/13/22 12/13/22 12/13/22 Range/Units 04:10 04:10 07:03 WBC 25.4 H (3.8-10.6) k/uL Plt Count 87 L (150-450) k/uL Neutrophils # 22.6 H (1.3-7.7) k/uL Neutrophils # (Manual) (1.3-7.7) k/uL Monocytes # 1.4 H (0-1.0) k/uL Metamyelocytes # (Man) (0) k/uL Myelocytes # (Manual) (0) k/uL Glucose 154 H (74-99) mg/dL POC Glucose (mg/dL) 170 H (70-110) mg/dL Microbiology - Last 24 Hours (Table) 12/11/22 19:45 Blood Culture Gram Stain - Preliminary Blood Blood Culture - Preliminary Gram Neg Bacilli 12/11/22 19:30 Blood Culture Gram Stain - Preliminary Blood Blood Culture - Preliminary Gram Neg Bacilli 12/11/22 19:20 Urine Culture - Preliminary Urine,Voided Gram Neg Bacilli Assessment and Plan (1) Gram-negative bacteremia Current Visit: Yes Status: Acute Code(s): R78.81 - BACTEREMIA SNOMED Code(s): 370553126809 (2) Sepsis Current Visit: Yes Status: Acute Code(s): A41.9 - SEPSIS, UNSPECIFIED ORGAN ISM SNOMED Code(s): 82511820 (3) UTI (urinary tract infection) Current Visit: Yes Status: Acute Code(s): N39.0 - URINARY TRACT INFECTION, SITE NOT SPECIFIED SNOMED Code(s): 12980670 Plan: 1patient presented to hospital with sepsis in this patient with a fever tachycardia elevated white count source is likely urinary in this patient who do have a history of recurrent UTI with a positive UA and history of ESBL E. coli we will need to cover for resistant gram-negative while waiting for the culture to finalize 2- ultrasound of the kidney bladder with no evidence of any structural abnormality or obstructive uropathy 3-patient continue with Invanz 1 g daily while waiting for the culture to finalize Dictation was produced using [employer] dictation software. please excuse any grammatical, word or spelling errors. Time with Patient: Less than 30
[2022-12-13 17:34] LABS: Glucose,Whole Blood 119 mg/dL (70-110)
[2022-12-13] MEDS: PANTOPRAZOLE 40 MG TABLET PO SCH (20:36)
[2022-12-13] MEDS: ERTAPENEM 1 GM in SODIUM CHLORIDE 0.9% 50 ML IVPB SCH (20:36)
[2022-12-13 20:46] LABS: Glucose,Whole Blood 114 mg/dL (70-110)
--- NOTE | 2022-12-13 22:23 | P.PN ---
Subjective Progress Note Date: 12/13/22 Patient is a 72-year-old male came in with meant complains of altered mental status patient does have history of Parkinson's but as per the nursing staff patient doesn't have any history of dementia. Patient had a low-grade temperature along mild neutropenia and significant abnormal urine, normal chest x-ray did patient denied any complaints of cough dysuria increased urinary frequency or urgency. Patient is alert and oriented 1-2 had history of ESBL E. coli and patient is admitted for septic shock secondary to urinary tract infection and patient is an not a problem at this time. Patient had lactic acidosis with highly elevated lactate and patient is presently on pressor support. 12/13/2022 Patient is seen and evaluated in follow-up in the ICU with infectious disease in pulmonary neuropsychiatric aide following closely. Patient continues on pressor support of Levophed and vasopressin has been discontinued. Patient continues on IV antibiotics and preliminary cultures along with blood culture showing gram- negative bacilli. Sodium bicarb is being discontinued and patient is continued on IV hydration. Patient's mentation is improving although patient continues to feel extremely lethargic and fatigues easily. Patient is able to answer questions appropriately. Review of systems: Constitutional: reports of fatigue, fever, or chills Cardiovascular: No reports of chest pain or palpitations Respiratory: No reports of shortness of breath or cough GI: No reports of nausea, vomiting, or diarrhea : No reports of dysuria or retention Neurovascular: reports of extreme weakness PHYSICAL EXAMINATION: GENERAL: The patient is alert and oriented x2, lethargic although arousable and answering questions more appropriately today fatigues easily. Obese HEENT: Pupils are round and equally reacting to light. EOMI. No scleral icterus. No conjunctival pallor. Normocephalic, atraumatic. No pharyngeal erythema. No thyromegaly. CARDIOVASCULAR: S1 and S2 muffled PULMONARY: Diminished breath sounds bilaterally with some scattered faint crackles noted. Weak inspiration ABDOMEN: Soft, nontender, nondistended, normoactive bowel sounds. No palpable organomegaly. MUSCULOSKELETAL: No joint swelling or deformity. EXTREMITIES: No cyanosis, clubbing, or pedal edema. Generalized edema noted of upper and lower extremities as well as face NEUROLOGICAL: Limited exam SKIN: No rashes. Assessment: -Septic shock secondary to urinary tract infection patient is on ertapenem because of his history of ESBL E. coli. -Type 2 diabetes mellitus -History of Parkinson's disease -Anion gap metabolic acidosis secondary to lactic acidosis -Non-anion gap metabolic acidosis secondary to hyperchloremia -Chronic hypomagnesemia and hypokalemia potassium. Which are being replaced -Diabetic peripheral neuropathy -GI prophylaxis -DVT prophylaxis: Subcutaneous heparin -Obesity with BMI of 31.8 -Full code Plan: Patient continues in the ICU on Levophed and vasopressin has been discontinued. Weaning as tolerated Pulmonary neuropsychiatric aide along with infectious disease following closely and patient is maintained on Invanz with preliminary culture showing gram-negative bacilli including blood cultures and repeat cultures ordered and pending. Patient has significant history of ESBL E. coli in the past Continue to monitor Accu-Cheks before meals and at bedtime and treat with sliding scale Sodium bicarb being discontinued and patient is maintained on gentle hydration Overall prognosis remains guarded and patient is critically ill The impression and plan of care has been dictated by Gregoria Caro, Nurse Practitioner as directed. Dr. Librado MD I have performed a history and examination and MDM of this patient, discussed the same with the dictator, and agree with the dictator's assessment and plan as written ,documented as a scribe. Based on total visit time, I have performed more than 50% of the visit. Objective - Vital Signs Vital signs: Vital Signs Temp 97.5 F L 12/13/22 04:00 Pulse 65 12/13/22 09:00 Resp 6 L 12/13/22 09:00 BP 134/68 12/13/22 09:00 Pulse Ox 96 12/13/22 09:00 FiO2 96 12/12/22 08:12 Intake & Output 12/12/22 12/13/22 12/13/22 18:59 06:59 18:59 Intake Total 2849.765 6414.764 543.956 Output Total 605 1430 475 Balance 1223.357 260.764 68.956 Weight 104.326 kg 100.4 kg Intake: IV 1577.32 1566.12 260 Dextrose 5% in Water 1, 1510 1560 260 000 ml @ 130 mls/hr IV . Q8H51M [facility] with Sodium Bicarb (1 Meq/ml) 150 ml Rx#:[id number] Vasopressin 60 unit In 67.32 6.12 Sodium Chloride 0.9% 150 ml @ 0.03 UNITS/MIN 4.59 mls/hr IV .Q24H [facility] Rx#: [id number] Intake, IV Titration 251.037 124.644 283.956 Amount Magnesium Sulfate-D5w Pmx 100 1 gm In Dextrose/Water 1 100ml.bag @ 100 mls/hr IVPB ONCE ONE Rx#: [id number] Norepinephrine 32 mg In 151.037 225.408 Sodium Chloride 0.9% 218 ml @ 0.03 MCG/KG/MIN 1. 467 mls/hr IV .Q24H [facility] Rx#:[id number] Vasopressin 60 unit In 124.644 58.548 Sodium Chloride 0.9% 150 ml @ 0.03 UNITS/MIN 4.59 mls/hr IV .Q24H [facility] Rx#: [id number] Output: Urine 605 1430 475 Other: Voiding Method Indwelling Catheter Indwelling Catheter Indwelling Catheter ABP, PAP, CO, CI - Last Documented Arterial Blood Pressure 126/58 - Labs CBC & Chem 7: 12/13/22 04:10 12/13/22 04:10 Labs: Abnormal Lab Results - Last 24 Hours (Table) 12/12/22 12/12/22 12/12/22 Range/Units 11:45 13:05 17:51 WBC (3.8-10.6) k/uL Plt Count (150-450) k/uL Neutrophils # (1.3-7.7) k/uL Neutrophils # (Manual) (1.3-7.7) k/uL Monocytes # (0-1.0) k/uL Metamyelocytes # (Man) (0) k/uL Myelocytes # (Manual) (0) k/uL Glucose (74-99) mg/dL POC Glucose (mg/dL) 160 H 174 H 166 H (70-110) mg/dL 12/12/22 12/12/22 12/13/22 Range/Units 18:08 23:43 04:10 WBC 28.0 H 25.4 H (3.8-10.6) k/uL Plt Count 112 L 87 L (150-450) k/uL Neutrophils # 22.6 H (1.3-7.7) k/uL Neutrophils # (Manual) 25.20 H (1.3-7.7) k/uL Monocytes # 1.4 H (0-1.0) k/uL Metamyelocytes # (Man) 0.56 H (0) k/uL Myelocytes # (Manual) 0.28 H (0) k/uL Glucose (74-99) mg/dL POC Glucose (mg/dL) 136 H (70-110) mg/dL 12/13/22 12/13/22 Range/Units 04:10 07:03 WBC (3.8-10.6) k/uL Plt Count (150-450) k/uL Neutrophils # (1.3-7.7) k/uL Neutrophils # (Manual) (1.3-7.7) k/uL Monocytes # (0-1.0) k/uL Metamyelocytes # (Man) (0) k/uL Myelocytes # (Manual) (0) k/uL Glucose 154 H (74-99) mg/dL POC Glucose (mg/dL) 170 H (70-110) mg/dL Microbiology - Last 24 Hours (Table) 12/11/22 19:45 Blood Culture Gram Stain - Preliminary Blood Blood Culture - Preliminary Gram Neg Bacilli 12/11/22 19:30 Blood Culture Gram Stain - Preliminary Blood Blood Culture - Preliminary Gram Neg Bacilli 12/11/22 19:20 Urine Culture - Preliminary Urine,Voided Gram Neg Bacilli
[2022-12-13 23:39] LABS: Glucose,Whole Blood 119 mg/dL (70-110)
[2022-12-13 23:56] LABS: Glucose,Whole Blood 119 mg/dL (70-110)
[2022-12-14] MEDS: SODIUM CHLORIDE 0.9% 1,000 ML IV SCH ×3 (00:24→23:15)
[2022-12-14] MEDS: VASOPRESSIN 60 UNIT in SODIUM CHLORIDE 0.9% 150 ML IV SCH (02:22)
[2022-12-14 04:53] LABS: Basophils % (A) 0 %; Eosinophils # (A) 0.1 k/uL (0-0.7); Eosinophils % (A) 0 %; HCT 37.8 % (39.0-53.0); HGB 12.4 gm/dL (13.0-17.5); Lymphocytes # (A) 1.1 k/uL (1.0-4.8); Lymphocytes % (A) 6 %; MCH 28.7 pg (25.0-35.0); MCHC 32.8 g/dL (31.0-37.0); MCV 87.5 fL (80.0-100.0); Mean Platelet Volume 10.8; Monocytes # (A) 0.7 k/uL (0-1.0); Monocytes % (A) 4 %; Neutrophils % (A) 88 %; RBC 4.32 m/uL (4.30-5.90); RDW 15.3 % (11.5-15.5); WBC 17.1 k/uL (3.8-10.6)
[2022-12-14 04:55] LABS: Platelet Count 75 k/uL (150-450)
[2022-12-14 05:06] LABS: African American GFR (CKD) >90 (>60 ml/min/1.73 sqM); Anion Gap 5 mmol/L; Blood Urea Nitrogen 16 mg/dL (9-20); Carbon Dioxide 25 mmol/L (22-30); Chloride 109 mmol/L (98-107); Glucose 111 mg/dL (74-99); Non-African American GFR(CKD) >90 (>60 ml/min/1.73 sqM); Potassium 3.4 mmol/L (3.5-5.1); Sodium 139 mmol/L (137-145)
[2022-12-14] MEDS ORDERED: Potassium Replacement Protocol 1 EACH MISC MISCELLANE PRN (05:14)
[2022-12-14] MEDS: POTASSIUM CHLORIDE 20 MEQ in WATER FOR INJECTION 1 100ML.BAG IVPB SCH ×2 (05:20→10:28)
[2022-12-14 06:03] LABS: Glucose,Whole Blood 113 mg/dL (70-110)
[2022-12-14] MEDS: INSULIN ASPART (NovoLOG) 100 UNIT/ML VIAL SQ SCH ×4 (06:09→21:11)
[2022-12-14] MEDS: LEVOTHYROXINE 75 MCG TAB PO SCH (06:43)
[2022-12-14] MEDS: ASPIRIN 81 MG PO SCH (10:27)
[2022-12-14] MEDS: HEPARIN SODIUM,PORCINE 5,000 UNIT/ML 1 ML VIAL SQ SCH ×3 (10:27→23:47)
[2022-12-14] MEDS: MAGNESIUM OXIDE 400 MG TAB PO SCH (10:27)
[2022-12-14] MEDS: CARBIDOPA-LEVODOPA 25-100 MG 1 EACH TAB PO SCH ×3 (10:28→20:59)
[2022-12-14] MEDS: TAMSULOSIN 0.4 MG CAP.ER.24H PO SCH (10:28)
--- NOTE | 2022-12-14 11:53 | P.PN ---
Subjective Progress Note Date: 12/14/22 Principal diagnosis: Septic shock and urosepsis I am seeing this patient in new consultation today 12/12/2022 in the emergency room for urosepsis and septic shock requiring vasopressors and admission to the intensive care unit. Patient is a 72-year-old white male with past medical history significant for frequent urinary tract infections and previous ESBL producing organisms, diabetes mellitus, hypothyroidism, Gullian Simms syndrome, and Parkinson's disease. Patient is currently confused and a poor historian. He has had multiple previous hospital admissions for UTIs and urosepsis. Patient came into the hospital late last night with the chief complaints of confusion and fevers. Urinalysis was consistent with urinary tract infection. CBC on arrival showed a WBC count of 3.7, hemoglobin 318.4, hematocrit 39.9, platelets 103. Initial CMP done in the emergency room showed a sodium 118, potassium 3, chloride 92, serum bicarb 14, BUN 17, creatinine 0.66, glucose 102. Patient's sodium was felt to be dilutional per emergency room physician. Repeat sodium 1 hour later was 140. normal saline is currently infusing at 130 ml/hr. Patient is currently lying in bed, on 2 L per nasal cannula, in no acute distress. Chest x-ray on arrival showed no acute cardiopulmonary process. T- max was 99.8F. Patient has been started empirically on ertapenem due to previous ESBL producing E. coli, and an infectious disease consult has been placed. Patient's blood pressure is hypotensive despite several normal saline boluses. Patient ultimately required vasopressor support in the form of norepinephrine which is currently infusing at 0.17 mcg/kg/m. Lactic acid level on arrival was 5.3 and is down to 5.2. Blood and urine cultures are pending. Patient will be admitted to the intensive care unit once bed available. Patient was reevaluated today on , remains in the ICU, still requiring vasopressin and norepinephrine his blood cultures and urine cultures a re positive for gram-negative bacilli, strongly suspect ESBL/E. coli. Patient remains on Invanz clinically feeling better mentation is improving his vasopressin was at 0.04 and I have discontinued vasopressin To him on norepinephrine at 0.26 plan to taper that down further and possibly discontinue in the meantime remains on IV fluid at 1 50 mL per hour and I have discontinued his bicarb drip as his acidosis has corrected nicely. Patient is still on 2 L nasal cannula not in distress. WBC count is improving down to 25.4 hemoglobin is 13.2, basic metabolic profile and renal profile are normal Patient was reevaluated today on 12/14/2022, remains you, on 2 L nasal cannula. Patient is being treated for urosepsis and ESBL producing E. coli noted in the urine and in the blood. Patient is still requiring norepinephrine at 0.07 mcg/kg/m his IV fluid is at 1 50 mL per hour patient is generally weak otherwise he is asymptomatic. Remains on 2 L nasal cannula. And not in distress. Remains on Invanz for ESBL/E. coli. WBC count today is 17.1, significantly improved compared to the last 2 days. Electrolytes are normal renal profile is normal Objective - Vital Signs Vital signs: Vital Signs Temp 98.1 F 12/14/22 09:00 Pulse 76 12/14/22 11:00 Resp 17 12/14/22 11:00 BP 110/68 12/14/22 10:45 Pulse Ox 93 L 12/14/22 10:45 FiO2 96 12/12/22 08:12 Intake & Output 12/13/22 12/14/22 12/14/22 18:59 06:59 18:59 Intake Total 3342.014 2254.131 544.023 Output Total 2453 1935 350 Balance 889.014 319.131 194.023 Weight 95 kg Intake: IV 780 1480 410 Dextrose 5% in Water 1, 390 000 ml @ 130 mls/hr IV . Q8H51M [facility] with Sodium Bicarb (1 Meq/ml) 150 ml Rx#:[id number] Ertapenem 1 gm In Sodium 50 Chloride 0.9% 50 ml @ 100 mls/hr IVPB Q24H [facility] Rx# :[id number] Sodium Chloride 0.9% 1, 390 000 ml @ 130 mls/hr IV . Q7H42M [facility] Rx#:[id number] Sodium Chloride 0.9% 1, 1430 410 000 ml @ 75 mls/hr IV . [id number] [facility] Rx#:[id number] Intake, IV Titration 2562.014 234.131 16.023 Amount Norepinephrine 32 mg In 333.466 104.131 16.023 Sodium Chloride 0.9% 218 ml @ 0.03 MCG/KG/MIN 1. 467 mls/hr IV .Q24H [facility] Rx#:[id number] Sodium Chloride 0.9% 1, 2170 130 000 ml @ 75 mls/hr IV . [id number] [facility] Rx#:[id number] Vasopressin 60 unit In 58.548 Sodium Chloride 0.9% 150 ml @ 0.03 UNITS/MIN 4.59 mls/hr IV .Q24H [facility] Rx#: [id number] Oral 540 118 Output: Urine 2453 1935 350 Other: Voiding Method Indwelling Catheter Indwelling Catheter ABP, PAP, CO, CI - Last Documented Arterial Blood Pressure 104/49 - Exam Physical Exam: Revealed 72-year-old white male on 2 L nasal cannula looks comfortable Head: Atraumatic, normocephalic. HEENT:[Neck is supple.] [No neck masses.] [No thyromegaly.] [No JVD.] Chest: [Clear throughout, no crackles, no rhonchi, no wheezes.] Cardiac Exam: [Normal S1 and S2, no S3 gallop, no murmur.] Abdomen: [Soft, nontender, no megaly, no rebound, no guarding, normal bowel sounds.] Extremities: [No clubbing, no edema, no cyanosis.] Neurological Exam: [No focal neurologic deficit.] Alert and oriented 3 Psychiatric: Normal mood affect and normal mental status examination. Skin: No rashes - Labs CBC & Chem 7: 12/14/22 04:42 12/14/22 04:42 Labs: Abnormal Lab Results - Last 24 Hours (Table) 12/13/22 12/13/22 12/13/22 Range/Units 17:33 20:44 23:38 WBC (3.8-10.6) k/uL Hgb (13.0-17.5) gm/dL Hct (39.0-53.0) % Plt Count (150-450) k/uL Neutrophils # (1.3-7.7) k/uL Potassium (3.5-5.1) mmol/L Chloride (98-107) mmol/L Glucose (74-99) mg/dL POC Glucose (mg/dL) 119 H 114 H 119 H (70-110) mg/dL 12/13/22 12/14/22 12/14/22 Range/Units 23:54 04:42 04:42 WBC 17.1 H (3.8-10.6) k/uL Hgb 12.4 L (13.0-17.5) gm/dL Hct 37.8 L (39.0-53.0) % Plt Count 75 L (150-450) k/uL Neutrophils # 15.0 H (1.3-7.7) k/uL Potassium 3.4 L (3.5-5.1) mmol/L Chloride 109 H (98-107) mmol/L Glucose 111 H (74-99) mg/dL POC Glucose (mg/dL) 119 H (70-110) mg/dL 12/14/22 Range/Units 06:02 WBC (3.8-10.6) k/uL Hgb (13.0-17.5) gm/dL Hct (39.0-53.0) % Plt Count (150-450) k/uL Neutrophils # (1.3-7.7) k/uL Potassium (3.5-5.1) mmol/L Chloride (98-107) mmol/L Glucose (74-99) mg/dL POC Glucose (mg/dL) 113 H (70-110) mg/dL Microbiology - Last 24 Hours (Table) 12/11/22 19:20 Urine Culture - Final Urine,Voided Escherichia coli 12/11/22 19:45 Blood Culture Gram Stain - Preliminary Blood Blood Culture - Preliminary Gram Neg Bacilli 12/11/22 19:30 Blood Culture Gram Stain - Preliminary Blood Blood Culture - Preliminary Gram Neg Bacilli Assessment and Plan Assessment: Impression: Septic shock secondary to urosepsis, remains on low dose of norepinephrine today. Being titrated down is on 0.07 mcg/kg/m Acute urosepsis secondary to ESBL/ECOLI Acute non-anion gap metabolic acidosis Acute lactic acidosis Thrombocytopenia secondary to sepsis Hypothyroidism Parkinson disease Diabetic neuropathy History of Guillain-Hoffman syndrome Acute metabolic encephalopathy improved Plan: Continue to monitor in the ICU as long as the patient is requiring pressors Continue GI and DVT prophylaxis Monitor electrolytes and adjust accordingly Continue 0.9 normal saline Continue Invanz We will continue to follow. Prognosis remains relatively guarded Time with Patient: Less than 30
[2022-12-14 12:08] LABS: Glucose,Whole Blood 188 mg/dL (70-110)
--- NOTE | 2022-12-14 12:49 | P.PN ---
Subjective Progress Note Date: 12/14/22 Principal diagnosis: Sepsis, UTI and bacteremia Patient is a 72-year-old male with a past medical history significant for diabetes mellitus, Guillain-Hoffman syndrome Parkinson disease frequent fall and history of recurrent UTI has been brought to the hospital for evaluation of fever and mental status changes, initially admitted to ICU because of hypertension. On today's evaluation that is 12/14/2022, the patient remains to be afebrile the patient is breathing comfortably on room air and not requiring supplemental oxygen, the patient denies chest pain and no significant cough, patient denies abdominal pain and no nausea/vomiting or diarrhea Patient did have white count down to 17.6, creatinine 0.76, blood culture gram negative , urine with ESBL e.coli Objective - Vital Signs Vital signs: Vital Signs Temp 98.1 F 12/14/22 09:00 Pulse 78 12/14/22 10:15 Resp 12 12/14/22 10:15 BP 104/62 12/14/22 10:15 Pulse Ox 93 L 12/14/22 09:30 FiO2 96 12/12/22 08:12 Intake & Output 12/13/22 12/14/22 12/14/22 18:59 06:59 18:59 Intake Total 3342.014 2254.131 544.023 Output Total 2453 1935 350 Balance 889.014 319.131 194.023 Weight 95 kg Intake: IV 780 1480 410 Dextrose 5% in Water 1, 390 000 ml @ 130 mls/hr IV . Q8H51M [facility] with Sodium Bicarb (1 Meq/ml) 150 ml Rx#:[id number] Ertapenem 1 gm In Sodium 50 Chloride 0.9% 50 ml @ 100 mls/hr IVPB Q24H [facility] Rx# :[id number] Sodium Chloride 0.9% 1, 390 000 ml @ 130 mls/hr IV . Q7H42M [facility] Rx#:[id number] Sodium Chloride 0.9% 1, 1430 410 000 ml @ 75 mls/hr IV . [id number] [facility] Rx#:[id number] Intake, IV Titration 2562.014 234.131 16.023 Amount Norepinephrine 32 mg In 333.466 104.131 16.023 Sodium Chloride 0.9% 218 ml @ 0.03 MCG/KG/MIN 1. 467 mls/hr IV .Q24H [facility] Rx#:[id number] Sodium Chloride 0.9% 1, 2170 130 000 ml @ 75 mls/hr IV . [id number] [facility] Rx#:[id number] Vasopressin 60 unit In 58.548 Sodium Chloride 0.9% 150 ml @ 0.03 UNITS/MIN 4.59 mls/hr IV .Q24H [facility] Rx#: [id number] Oral 540 118 Output: Urine 2453 1935 350 Other: Voiding Method Indwelling Catheter Indwelling Catheter ABP, PAP, CO, CI - Last Documented Arterial Blood Pressure 115/54 - Exam GENERAL DESCRIPTION: An elderly male lying in bed in no distress RESPIRATORY SYSTEM: Unlabored breathing , decreased breath sounds at bases HEART: S1 S2 regular rate and rhythm , ABDOMEN: Soft , no tenderness EXTREMITIES: No edema feet - Labs CBC & Chem 7: 12/14/22 04:42 12/14/22 04:42 Labs: Abnormal Lab Results - Last 24 Hours (Table) 12/13/22 12/13/22 12/13/22 Range/Units 17:33 20:44 23:38 WBC (3.8-10.6) k/uL Hgb (13.0-17.5) gm/dL Hct (39.0-53.0) % Plt Count (150-450) k/uL Neutrophils # (1.3-7.7) k/uL Potassium (3.5-5.1) mmol/L Chloride (98-107) mmol/L Glucose (74-99) mg/dL POC Glucose (mg/dL) 119 H 114 H 119 H (70-110) mg/dL 12/13/22 12/14/22 12/14/22 Range/Units 23:54 04:42 04:42 WBC 17.1 H (3.8-10.6) k/uL Hgb 12.4 L (13.0-17.5) gm/dL Hct 37.8 L (39.0-53.0) % Plt Count 75 L (150-450) k/uL Neutrophils # 15.0 H (1.3-7.7) k/uL Potassium 3.4 L (3.5-5.1) mmol/L Chloride 109 H (98-107) mmol/L Glucose 111 H (74-99) mg/dL POC Glucose (mg/dL) 119 H (70-110) mg/dL 12/14/22 Range/Units 06:02 WBC (3.8-10.6) k/uL Hgb (13.0-17.5) gm/dL Hct (39.0-53.0) % Plt Count (150-450) k/uL Neutrophils # (1.3-7.7) k/uL Potassium (3.5-5.1) mmol/L Chloride (98-107) mmol/L Glucose (74-99) mg/dL POC Glucose (mg/dL) 113 H (70-110) mg/dL Microbiology - Last 24 Hours (Table) 12/11/22 19:20 Urine Culture - Final Urine,Voided Escherichia coli 12/11/22 19:45 Blood Culture Gram Stain - Preliminary Blood Blood Culture - Preliminary Gram Neg Bacilli 12/11/22 19:30 Blood Culture Gram Stain - Preliminary Blood Blood Culture - Preliminary Gram Neg Bacilli Assessment and Plan (1) Gram-negative bacteremia Current Visit: Yes Status: Acute Code(s): R78.81 - BACTEREMIA SNOMED Code(s): 349669898296 (2) Sepsis Current Visit: Yes Status: Acute Code(s): A41.9 - SEPSIS, UNSPECIFIED ORGANISM SNOMED Code(s): 37009694 (3) UTI (urinary tract infection) Current Visit: Yes Status: Acute Code(s): N39.0 - URINARY TRACT INFECTION, SITE NOT SPECIFIED SNOMED Code(s): 70733478 Plan: 1patient presented to hospital with sepsis in this patient with a fever tachycardia elevated white count source is likely urinary in this patient who do have a history of recurrent UTI with a positive UA and history of ESBL E. coli we will need to cover for resistant gram-negative while waiting for the culture to finalize 2- ultrasound of the kidney bladder with no evidence of any structural abnormality or obstructive uropathy 3-patient afebrile and WBC is trending down , will continue with Invanz 1 g daily and monitor clinical course closely Dictation was produced using [employer] software. please excuse any grammatical, word or spelling errors. Time with Patient: Less than 30
[2022-12-14] MEDS: PREGABALIN 75 MG CAP PO SCH ×2 (15:30→20:59)
[2022-12-14 16:34] LABS: Glucose,Whole Blood 107 mg/dL (70-110)
[2022-12-14 19:54] LABS: Glucose,Whole Blood 95 mg/dL (70-110)
[2022-12-14] MEDS: ERTAPENEM 1 GM in SODIUM CHLORIDE 0.9% 50 ML IVPB SCH (20:58)
[2022-12-14] MEDS: PANTOPRAZOLE 40 MG TABLET PO SCH (20:59)
[2022-12-15 05:26] LABS: Basophils % (A) 0 %; Eosinophils # (A) 0.5 k/uL (0-0.7); Eosinophils % (A) 4 %; HCT 38.4 % (39.0-53.0); HGB 12.6 gm/dL (13.0-17.5); Lymphocytes # (A) 1.3 k/uL (1.0-4.8); Lymphocytes % (A) 11 %; MCHC 32.7 g/dL (31.0-37.0); MCV 88.6 fL (80.0-100.0); Mean Platelet Volume 10.1; Monocytes # (A) 0.4 k/uL (0-1.0); Monocytes % (A) 4 %; Neutrophils # (A) 9.3 k/uL (1.3-7.7); Neutrophils % (A) 78 %; RBC 4.33 m/uL (4.30-5.90); RDW 15.4 % (11.5-15.5); WBC 11.9 k/uL (3.8-10.6)
[2022-12-15 05:38] LABS: African American GFR (CKD) >90 (>60 ml/min/1.73 sqM); Anion Gap 7 mmol/L; Blood Urea Nitrogen 16 mg/dL (9-20); Calcium 9.2 mg/dL (8.4-10.2); Carbon Dioxide 20 mmol/L (22-30); Chloride 111 mmol/L (98-107); Glucose 97 mg/dL (74-99); Non-African American GFR(CKD) >90 (>60 ml/min/1.73 sqM); Phosphorus 2.4 mg/dL (2.5-4.5); Sodium 138 mmol/L (137-145)
[2022-12-15 05:39] LABS: Platelet Count 75 k/uL (150-450)
[2022-12-15 05:43] LABS: Potassium 3.9 mmol/L (3.5-5.1)
[2022-12-15] MEDS ORDERED: POTASSIUM CHLORIDE ER 20 MEQ TAB.ER PO SCH (06:00)
[2022-12-15] MEDS: LEVOTHYROXINE 75 MCG TAB PO SCH (06:18)
[2022-12-15] MEDS: NOREPINEPHRINE 32 MG in SODIUM CHLORIDE 0.9% 218 ML IV SCH (06:19)
[2022-12-15 06:45] LABS: Glucose,Whole Blood 106 mg/dL (70-110)
[2022-12-15] MEDS: INSULIN ASPART (NovoLOG) 100 UNIT/ML VIAL SQ SCH ×4 (06:48→20:22)
[2022-12-15] MEDS: CARBIDOPA-LEVODOPA 25-100 MG 1 EACH TAB PO SCH ×3 (08:20→22:06)
[2022-12-15] MEDS: ASPIRIN 81 MG PO SCH (08:20)
[2022-12-15] MEDS: PREGABALIN 75 MG CAP PO SCH ×3 (08:20→20:00)
[2022-12-15] MEDS: MAGNESIUM OXIDE 400 MG TAB PO SCH (08:20)
[2022-12-15] MEDS: HEPARIN SODIUM,PORCINE 5,000 UNIT/ML 1 ML VIAL SQ SCH ×3 (08:20→23:26)
[2022-12-15] MEDS: TAMSULOSIN 0.4 MG CAP.ER.24H PO SCH (08:20)
[2022-12-15] MEDS ORDERED: SODIUM CHLORIDE 0.9% 1,000 ML IV ONE (09:33)
[2022-12-15] MEDS: SODIUM CHLORIDE 0.9% 1,000 ML IV SCH ×2 (10:45→19:59)
[2022-12-15 11:56] LABS: Glucose,Whole Blood 123 mg/dL (70-110)
--- NOTE | 2022-12-15 12:21 | P.PN ---
Subjective Progress Note Date: 12/15/22 Principal diagnosis: Septic shock and urosepsis I am seeing this patient in new consultation today 12/12/2022 in the emergency room for urosepsis and septic shock requiring vasopressors and admission to the intensive care unit. Patient is a 72-year-old white male with past medical history significant for frequent urinary tract infections and previous ESBL producing organisms, diabetes mellitus, hypothyroidism, Gullian Lawai syndrome, and Parkinson's disease. Patient is currently confused and a poor historian. He has had multiple previous hospital admissions for UTIs and urosepsis. Patient came into the hospital late last night with the chief complaints of confusion and fevers. Urinalysis was consistent with urinary tract infection. CBC on arrival showed a WBC count of 3.7, hemoglobin 318.4, hematocrit 39.9, platelets 103. Initial CMP done in the emergency room showed a sodium 118, potassium 3, chloride 92, serum bicarb 14, BUN 17, creatinine 0.66, glucose 102. Patient's sodium was felt to be dilutional per emergency room physician. Repeat sodium 1 hour later was 140. normal saline is currently infusing at 130 ml/hr. Patient is currently lying in bed, on 2 L per nasal cannula, in no acute distress. Chest x-ray on arrival showed no acute cardiopulmonary process. T- max was 99.8F. Patient has been started empirically on ertapenem due to previous ESBL producing E. coli, and an infectious disease consult has been placed. Patient's blood pressure is hypotensive despite several normal saline boluses. Patient ultimately required vasopressor support in the form of norepinephrine which is currently infusing at 0.17 mcg/kg/m. Lactic acid level on arrival was 5.3 and is down to 5.2. Blood and urine cultures are pending. Patient will be admitted to the intensive care unit once bed available. Patient was reevaluated today on , remains in the ICU, still requiring vasopressin and norepinephrine his blood cultures and urine cultures a re positive for gram-negative bacilli, strongly suspect ESBL/E. coli. Patient remains on Invanz clinically feeling better mentation is improving his vasopressin was at 0.04 and I have discontinued vasopressin To him on norepinephrine at 0.26 plan to taper that down further and possibly discontinue in the meantime remains on IV fluid at 1 50 mL per hour and I have discontinued his bicarb drip as his acidosis has corrected nicely. Patient is still on 2 L nasal cannula not in distress. WBC count is improving down to 25.4 hemoglobin is 13.2, basic metabolic profile and renal profile are normal Patient was reevaluated today on 12/14/2022, remains you, on 2 L nasal cannula. Patient is being treated for urosepsis and ESBL producing E. coli noted in the urine and in the blood. Patient is still requiring norepinephrine at 0.07 mcg/kg/m his IV fluid is at 1 50 mL per hour patient is generally weak otherwise he is asymptomatic. Remains on 2 L nasal cannula. And not in distress. Remains on Invanz for ESBL/E. coli. WBC count today is 17.1, significantly improved compared to the last 2 days. Electrolytes are normal renal profile is normal Reevaluated today on 12/15/2022 patient remains in the ICU still requiring pressors/norepinephrine at 0.07 mcg/kg/m. Clinically the patient is feeling better, nonetheless he has extensive urosepsis and septic shock. Today I'm recommending more fluids to be given and hopefully we could taper down and discontinued his norepinephrine. Patient is treating for ESBL producing E. coli and he is on Invanz. Pulmonary-tony the patient is on room air previous x-ray on admission showed mostly atelectasis at the bases. WBC count today is 11.9 hemoglobin is 12.6 basic metabolic profile is normal and renal profile is normal Objective - Vital Signs Vital signs: Vital Signs Temp 97.8 F 12/15/22 12:00 Pulse 48 L 12/15/22 12:00 Resp 10 L 12/15/22 12:00 BP 102/67 12/15/22 12:00 Pulse Ox 95 12/15/22 12:00 FiO2 96 12/12/22 08:12 Intake & Output 12/14/22 12/15/22 12/15/22 18:59 06:59 18:59 Intake Total 4008.829 7965.258 1968.383 Output Total 1025 390 505 Balance 740.145 145.383 9636.383 Weight 96 kg Intake: IV 1010 1075 1350 Ertapenem 1 gm In Sodium 100 Chloride 0.9% 50 ml @ 100 mls/hr IVPB Q24H [facility] Rx# :[id number] Sodium Chloride 0.9% 1, 1010 975 350 000 ml @ 100 mls/hr IV . Q10H [facility] Rx#:[id number] Sodium Chloride 0.9% 1, 1000 000 ml @ 999 mls/hr IV . Q1H1M [facility] Rx#:[id number] Intake, IV Titration 29.145 33.258 10.383 Amount Norepinephrine 32 mg In 29.145 33.258 10.383 Sodium Chloride 0.9% 218 ml @ 0.03 MCG/KG/MIN 1. 467 mls/hr IV .Q24H [facility] Rx#:[id number] Oral 726 608 Output: Urine 1025 390 505 Other: Voiding Method Indwelling Catheter Indwelling Catheter ABP, PAP, CO, CI - Last Documented Arterial Blood Pressure 92/74 - Exam Physical Exam: Revealed 72-year-old white male on room air Head: Atraumatic, normocephalic. HEENT:[Neck is supple.] [No neck masses.] [No thyromegaly.] [No JVD.] Chest: [Diminished breath sounds at the bases no crackles or rhonchi or wheezes Cardiac Exam: [Normal S1 and S2, no S3 gallop, no murmur.] Abdomen: [Soft, nontender, no megaly, no rebound, no guarding, normal bowel sounds.] Extremities: [No clubbing, no edema, no cyanosis.] Neurological Exam: [No focal neurologic deficit.] Alert and oriented 3 Psychiatric: Normal mood affect and normal mental status examination. Skin: No rashes - Labs CBC & Chem 7: 12/15/22 05:10 12/15/22 05:10 Labs: Abnormal Lab Results - Last 24 Hours (Table) 12/15/22 12/15/22 12/15/22 Range/Units 05:10 05:10 11:55 WBC 11.9 H (3.8-10.6) k/uL Hgb 12.6 L (13.0-17.5) gm/dL Hct 38.4 L (39.0-53.0) % Plt Count 75 L (150-450) k/uL Neutrophils # 9.3 H (1.3-7.7) k/uL Chloride 111 H (98-107) mmol/L Carbon Dioxide 20 L (22-30) mmol/L POC Glucose (mg/dL) 123 H (70-110) mg/dL Phosphorus 2.4 L (2.5-4.5) mg/dL Microbiology - Last 24 Hours (Table) 12/11/22 19:30 Blood Culture Gram Stain - Final Blood Blood Culture - Final Escherichia coli 12/11/22 19:45 Blood Culture Gram Stain - Final Blood Blood Culture - Final Escherichia coli Assessment and Plan Assessment: Impression: Septic shock secondary to urosepsis, remains on low dose of norepinephrine today. Acute urosepsis secondary to ESBL/ECOLI Acute non-anion gap metabolic acidosis Acute lactic acidosis Thrombocytopenia secondary to sepsis Hypothyroidism Parkinson disease Diabetic neuropathy History of Guillain-Hoffman syndrome Acute metabolic encephalopathy improved Plan: Continue norepinephrine and titrate accordingly Increase IV fluids and he'll be given a fluid bolus of 0.9 normal saline Continue GI and DVT prophylaxis Monitor electrolytes and adjust accordingly Continue 0.9 normal saline Continue Invanz We will continue to follow. Prognosis remains relatively guarded continue to monitor in the ICU while he is on pressors Time with Patient: Less than 30
[2022-12-15 16:18] LABS: Glucose,Whole Blood 125 mg/dL (70-110)
--- NOTE | 2022-12-15 18:13 | P.PN ---
Subjective Progress Note Date: 12/15/22 Principal diagnosis: Sepsis, UTI and bacteremia Patient is a 72-year-old male with a past medical history significant for diabetes mellitus, Guillain-Hoffman syndrome Parkinson disease frequent fall and history of recurrent UTI has been brought to the hospital for evaluation of fever and mental status changes, initially admitted to ICU because of hypertension. On today's evaluation that is 12/15/2022, the patient denies any fever or chills , the patient is breathing comfortably without need for supplemental oxygen, the patient denies chest pain or cough, patient denies nausea/vomiting , abdominal pain and no diarrhea reported Patient did have white count down to 11.9, creatinine 0.67, blood culture E.coli , urine with ESBL e.coli Objective - Vital Signs Vital signs: Vital Signs Temp 98.0 F 12/15/22 16:00 Pulse 66 12/15/22 17:30 Resp 12 12/15/22 17:30 BP 116/65 12/15/22 17:30 Pulse Ox 93 L 12/15/22 17:30 FiO2 96 12/12/22 08:12 Intake & Output 12/14/22 12/15/22 12/15/22 18:59 06:59 18:59 Intake Total 9008.833 5317.258 2593.082 Output Total 1025 390 840 Balance 740.145 305.422 3702.082 Weight 96 kg Intake: IV 1010 1075 1850 Ertapenem 1 gm In Sodium 100 Chloride 0.9% 50 ml @ 100 mls/hr IVPB Q24H [facility] Rx# :[id number] Sodium Chloride 0.9% 1, 1010 975 850 000 ml @ 100 mls/hr IV . Q10H [facility] Rx#:[id number] Sodium Chloride 0.9% 1, 1000 000 ml @ 999 mls/hr IV . Q1H1M [facility] Rx#:[id number] Intake, IV Titration 29.145 33.258 17.082 Amount Norepinephrine 32 mg In 29.145 33.258 17.082 Sodium Chloride 0.9% 218 ml @ 0.03 MCG/KG/MIN 1. 467 mls/hr IV .Q24H [facility] Rx#:[id number] Oral 726 726 Output: Urine 1025 390 840 Other: Voiding Method Indwelling Catheter Indwelling Catheter ABP, PAP, CO, CI - Last Documented Arterial Blood Pressure 92/74 - Exam GENERAL DESCRIPTION: An elderly male lying in bed in no distress RESPIRATORY SYSTEM: Unlabored breathing , decreased breath sounds at bases HEART: S1 S2 regular rate and rhythm , ABDOMEN: Soft , no tenderness EXTREMITIES: No edema feet - Labs CBC & Chem 7: 12/15/22 05:10 12/15/22 05:10 Labs: Abnormal Lab Results - Last 24 Hours (Table) 12/15/22 12/15/22 12/15/22 Range/Units 05:10 05:10 11:55 WBC 11.9 H (3.8-10.6) k/uL Hgb 12.6 L (13.0-17.5) gm/dL Hct 38.4 L (39.0-53.0) % Plt Count 75 L (150-450) k/uL Neutrophils # 9.3 H (1.3-7.7) k/uL Chloride 111 H (98-107) mmol/L Carbon Dioxide 20 L (22-30) mmol/L POC Glucose (mg/dL) 123 H (70-110) mg/dL Phosphorus 2.4 L (2.5-4.5) mg/dL 12/15/22 Range/Units 16:17 WBC (3.8-10.6) k/uL Hgb (13.0-17.5) gm/dL Hct (39.0-53.0) % Plt Count (150-450) k/uL Neutrophils # (1.3-7.7) k/uL Chloride (98-107) mmol/L Carbon Dioxide (22-30) mmol/L POC Glucose (mg/dL) 125 H (70-110) mg/dL Phosphorus (2.5-4.5) mg/dL Microbiology - Last 24 Hours (Table) 12/11/22 19:30 Blood Culture Gram Stain - Final Blood Blood Culture - Final Escherichia coli 12/11/22 19:45 Blood Culture Gram Stain - Final Blood Blood Culture - Final Escherichia coli Assessment and Plan (1) Gram-negative bacteremia Current Visit: Yes Status: Acute Code(s): R78.81 - BACTEREMIA SNOMED Code(s): 308607506016 (2) Sepsis Current Visit: Yes Status: Acute Code(s): A41.9 - SEPSIS, UNSPECIFIED ORGANISM SNOMED Code(s): 93044851 (3) UTI (urinary tract infection) Current Visit: Yes Status: Acute Code(s): N39.0 - URINARY TRACT INFECTION, SITE NOT SPECIFIED SNOMED Code(s): 80724177 Plan: 1patient presented to hospital with sepsis in this patient with a fever tachycardia elevated white count source is likely urinary in this patient who do have a history of recurrent UTI with a positive UA and history of ESBL E. coli we will need to cover for resistant gram-negative while waiting for the culture to finalize 2- ultrasound of the kidney bladder with no evidence of any structural abnormality or obstructive uropathy 3-patient afebrile and WBC is trending down , will continue with Invanz 1 g daily , will need midline for outpatient IV invanz Dictation was produced using [employer] dictation software. please excuse any grammatical, word or spelling errors. Time with Patient: Less than 30
[2022-12-15] MEDS: PANTOPRAZOLE 40 MG TABLET PO SCH (20:00)
[2022-12-15] MEDS: ERTAPENEM 1 GM in SODIUM CHLORIDE 0.9% 50 ML IVPB SCH (20:00)
[2022-12-15 20:15] LABS: Glucose,Whole Blood 82 mg/dL (70-110)
--- NOTE | 2022-12-15 22:39 | P.PN ---
Subjective Progress Note Date: 12/14/22 Patient is a 72-year-old male came in with meant complains of altered mental status patient does have history of Parkinson's but as per the nursing staff patient doesn't have any history of dementia. Patient had a low-grade temperature along mild neutropenia and significant abnormal urine, normal chest x-ray did patient denied any complaints of cough dysuria increased urinary frequency or urgency. Patient is alert and oriented 1-2 had history of ESBL E. coli and patient is admitted for septic shock secondary to urinary tract infection and patient is an not a problem at this time. Patient had lactic acidosis with highly elevated lactate and patient is presently on pressor support. 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 Patient continues on pressor support of Levophed and vasopressin has been discontinued. Patient continues on IV antibiotics and preliminary cultures along with blood culture showing gram- negative bacilli. Sodium bicarb is being discontinued and patient is continued on IV hydration. Patient's mentation is improving although patient continues to feel extremely lethargic and fatigues easily. Patient is able to answer questions appropriately. 12/14/2022 Patient is in the MICU. Currently laying in the bed. Awake alert and oriented x3. Seems to be weak and lethargic. On oxygen at 2 L via nasal cannula. Patient is requiring pressor support with Levophed. Continued on Invanz for ESBL urinary tract infection. Patient has been afebrile. Denies any nausea or vomiting. No cough or sputum production. Laboratory data showed WBC 17.1 hemoglobin 12.4 and platelets 75 Sodium 139 potassium 3.4 chloride 109 bicarb is 25 BUN 16 and creatinine 0.76 and blood sugar is 111 and magnesium 2.0 Current medications reviewed. Review of systems: Constitutional: reports of fatigue, fever, or chills Cardiovascular: No reports of chest pain or palpitations Respiratory: No reports of shortness of breath or cough GI: No reports of nausea, vomiting, or diarrhea : No reports of dysuria or retention Neurovascular: reports of extreme weakness PHYSICAL EXAMINATION: GENERAL: The patient is alert and oriented x2, lethargic although arousable and answering questions more appropriately today fatigues easily. Obese HEENT: Pupils are round and equally reacting to light. EOMI. No scleral icterus. No conjunctival pallor. Normocephalic, atraumatic. No pharyngeal erythema. No thyromegaly. CARDIOVASCULAR: S1 and S2 muffled PULMONARY: Diminished breath sounds bilaterally with some scattered faint crackles noted. Weak inspiration ABDOMEN: Soft, nontender, nondistended, normoactive bowel sounds. No palpable organomegaly. MUSCULOSKELETAL: No joint swelling or deformity. EXTREMITIES: No cyanosis, clubbing, or pedal edema. Generalized edema noted of upper and lower extremities as well as face NEUROLOGICAL: Limited exam SKIN: No rashes. Assessment: -Septic shock secondary to urinary tract infection patient is on ertapenem because of his history of ESBL E. coli. -Type 2 diabetes mellitus -History of Parkinson's disease -Anion gap metabolic acidosis secondary to lactic acidosis -Non-anion gap metabolic acidosis secondary to hyperchloremia -Chronic hypomagnesemia and hypokalemia potassium. Which are being replaced -Diabetic peripheral neuropathy -GI prophylaxis -DVT prophylaxis: Subcutaneous heparin -Obesity with BMI of 31.8 -Full code Plan: Patient continues in the ICU on Levophed and vasopressin has been discontinued. 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 Patient has significant history of ESBL E. coli in the past Continue to monitor Accu-Cheks before meals and at bedtime and treat with sliding scale Sodium bicarb being discontinued and patient is maintained on IV hydration Overall prognosis remains guarded and patient is critically ill Objective - Vital Signs Vital signs: Vital Signs Temp 98.1 F 12/14/22 09:00 Pulse 76 12/14/22 11:00 Resp 17 12/14/22 11:00 BP 110/68 12/14/22 10:45 Pulse Ox 93 L 12/14/22 10:45 FiO2 96 12/12/22 08:12 Intake & Output 12/13/22 12/14/22 12/14/22 18:59 06:59 18:59 Intake Total 3342.014 2254.131 544.023 Output Total 2453 1935 350 Balance 889.014 319.131 194.023 Weight 95 kg Intake: IV 780 1480 410 Dextrose 5% in Water 1, 390 000 ml @ 130 mls/hr IV . Q8H51M [facility] with Sodium Bicarb (1 Meq/ml) 150 ml Rx#:[id number] Ertapenem 1 gm In Sodium 50 Chloride 0.9% 50 ml @ 100 mls/hr IVPB Q24H [facility]S AT [facility] Rx# :[id number] Sodium Chloride 0.9% 1, 390 000 ml @ 130 mls/hr IV . Q7H42M [facility] 234 BEDS AT [facility] Rx#:[id number] Sodium Chloride 0.9% 1, 1430 410 000 ml @ 75 mls/hr IV . [id number] [facility]S [facility] 234 BEDS AT [facility] Rx#:[id number] Intake, IV Titration 2562.014 234.131 16.023 Amount Norepinephrine 32 mg In 333.466 104.131 16.023 Sodium Chloride 0.9% 218 ml @ 0.03 MCG/KG/MIN 1. 467 mls/hr IV .Q24H [facility] Rx#:[id number] Sodium Chloride 0.9% 1, 2170 130 000 ml @ 75 mls/hr IV . [id number] [facility] 234 [facility]S AT [facility] Rx#:[id number] Vasopressin 60 unit In 58.548 Sodium Chloride 0.9% 150 ml @ 0.03 UNITS/MIN 4.59 mls/hr IV .Q24H [facility]S [facility] Rx#: [id number] Oral 540 118 Output: Urine 2453 1935 350 Other: Voiding Method Indwelling Catheter Indwelling Catheter ABP, PAP, CO, CI - Last Documented Arterial Blood Pressure 104/49 - Labs CBC & Chem 7: 12/15/22 05:10 12/15/22 05:10 Labs: Abnormal Lab Results - Last 24 Hours (Table) 12/13/22 12/13/22 12/13/22 Range/Units 17:33 20:44 23:38 WBC (3.8-10.6) k/uL Hgb (13.0-17.5) gm/dL Hct (39.0-53.0) % Plt Count (150-450) k/uL Neutrophils # (1.3-7.7) k/uL Potassium (3.5-5.1) mmol/L Chloride (98-107) mmol/L Glucose (74-99) mg/dL POC Glucose (mg/dL) 119 H 114 H 119 H (70-110) mg/dL 12/13/22 12/14/22 12/14/22 Range/Units 23:54 04:42 04:42 WBC 17.1 H (3.8-10.6) k/uL Hgb 12.4 L (13.0-17.5) gm/dL Hct 37.8 L (39.0-53.0) % Plt Count 75 L (150-450) k/uL Neutrophils # 15.0 H (1.3-7.7) k/uL Potassium 3.4 L (3.5-5.1) mmol/L Chloride 109 H (98-107) mmol/L Glucose 111 H (74-99) mg/dL POC Glucose (mg/dL) 119 H (70-110) mg/dL 12/14/22 12/14/22 Range/Units 06:02 12:06 WBC (3.8-10.6) k/uL Hgb (13.0-17.5) gm/dL Hct (39.0-53.0) % Plt Count (150-450) k/uL Neutrophils # (1.3-7.7) k/uL Potassium (3.5-5.1) mmol/L Chloride (98-107) mmol/L Glucose (74-99) mg/dL POC Glucose (mg/dL) 113 H 188 H (70-110) mg/dL Microbiology - Last 24 Hours (Table) 12/11/22 19:20 Urine Culture - Final Urine,Voided Escherichia coli Assessment and Plan Time with Patient: Greater than 30
--- NOTE | 2022-12-15 22:44 | P.PN ---
Subjective Progress Note Date: 12/15/22 Patient is a 72-year-old male came in with meant complains of altered mental status patient does have history of Parkinson's but as per the nursing staff patient doesn't have any history of dementia. Patient had a low-grade temperature along mild neutropenia and significant abnormal urine, normal chest x-ray did patient denied any complaints of cough dysuria increased urinary frequency or urgency. Patient is alert and oriented 1-2 had history of ESBL E. coli and patient is admitted for septic shock secondary to urinary tract infection and patient is an not a problem at this time. Patient had lactic acidosis with highly elevated lactate and patient is presently on pressor support. 12/13/2022 Patient is seen and evaluated in follow-up in the ICU with infectious disease in pulmonary industrial retrofit designer following closely. Patient continues on pressor support of Levophed and vasopressin has been discontinued. Patient continues on IV antibiotics and preliminary cultures along with blood culture showing gram- negative bacilli. Sodium bicarb is being discontinued and patient is continued on IV hydration. Patient's mentation is improving although patient continues to feel extremely lethargic and fatigues easily. Patient is able to answer questions appropriately. 12/14/2022 Patient is in the MICU. Currently laying in the bed. Awake alert and oriented x3. Seems to be weak and lethargic. On oxygen at 2 L via nasal cannula. Patient is requiring pressor support with Levophed. Continued on Invanz for ESBL urinary tract infection. Patient has been afebrile. Denies any nausea or vomiting. No cough or sputum production. Laboratory data showed WBC 17.1 hemoglobin 12.4 and platelets 75 Sodium 139 potassium 3.4 chloride 109 bicarb is 25 BUN 16 and creatinine 0.76 and blood sugar is 111 and magnesium 2.0 12/15/2022 Patient is in the MICU. Able to sit in the chair at bedside. Awake alert and oriented x3. No complaints of chest pain or shortness of breath. Remains on Le vophed which is being tapered off slowly. Patient is being continued on Invanz for ESBL urinary tract infection/septic shock. Laboratory data showed WBC improved to 11.9 hemoglobin 12.6 and platelets 75, sodium 138 potassium 3.9 chloride 101 bicarb is 20 BUN 16 and creatinine 0.67 and phosphorus 2.4 today. Current medications reviewed. Review of systems: Constitutional: reports of fatigue, fever, or chills Cardiovascular: No reports of chest pain or palpitations Respiratory: No reports of shortness of breath or cough GI: No reports of nausea, vomiting, or diarrhea : No reports of dysuria or retention Neurovascular: reports of extreme weakness PHYSICAL EXAMINATION: GENERAL: The patient is alert and oriented x2, lethargic although arousable and answering questions more appropriately today fatigues easily. Obese HEENT: Pupils are round and equally reacting to light. EOMI. No scleral icterus. No conjunctival pallor. Normocephalic, atraumatic. No pharyngeal erythema. No thyromegaly. CARDIOVASCULAR: S1 and S2 muffled PULMONARY: Diminished breath sounds bilaterally with some scattered faint crackles noted. Weak inspiration ABDOMEN: Soft, nontender, nondistended, normoactive bowel sounds. No palpable organomegaly. MUSCULOSKELETAL: No joint swelling or deformity. EXTREMITIES: No cyanosis, clubbing, or pedal edema. Generalized edema noted of upper and lower extremities as well as face NEUROLOGICAL: Limited exam SKIN: No rashes. Assessment: -Septic shock secondary to urinary tract infection patient is on ertapenem because of his history of ESBL E. coli. Urine culture showed E. coli. -E. coli bacteremia -Type 2 diabetes mellitus -History of Parkinson's disease -Anion gap metabolic acidosis secondary to lactic acidosis -Non-anion gap metabolic acidosis secondary to hyperchloremia -Chronic hypomagnesemia and hypokalemia potassium. Which are being replaced -Diabetic peripheral neuropathy -GI prophylaxis -DVT prophylaxis: Subcutaneous heparin -Obesity with BMI of 31.8 -Full code Plan: Patient continues in the ICU on Levophed and vasopressin has been discontinued. Weaning as tolerated Pulmonary industrial retrofit designer along with infectious disease following closely and patient is maintained on Invanz. Blood culture sent urine cultures drawn on 12/11/2022 showing E. coli. Repeat blood cultures were ordered. Patient has significant history of ESBL E. coli in the past Continue to monitor Accu-Cheks before meals and at bedtime and treat with sliding scale Sodium bicarb being discontinued and patient is maintained on IV hydration Overall prognosis remains guarded and patient is critically ill Objective - Vital Signs Vital signs: Vital Signs Temp 97.8 F 12/15/22 12:00 Pulse 55 L 12/15/22 13:15 Resp 12 12/15/22 13:15 BP 108/71 12/15/22 13:15 Pulse Ox 96 12/15/22 13:15 FiO2 96 12/12/22 08:12 Intake & Output 12/14/22 12/15/22 12/15/22 18:59 06:59 18:59 Intake Total 8464.338 3622.258 2075.082 Output Total 1025 390 540 Balance 740.145 270.440 2104.082 Weight 96 kg Intake: IV 1010 1075 1450 Ertapenem 1 gm In Sodium 100 Chloride 0.9% 50 ml @ 100 mls/hr IVPB Q24H [facility] Rx# :[id number] Sodium Chloride 0.9% 1, 1010 975 450 000 ml @ 100 mls/hr IV . Q10H [facility] Rx#:[id number] Sodium Chloride 0.9% 1, 1000 000 ml @ 999 mls/hr IV . Q1H1M [facility] Rx#:[id number] Intake, IV Titration 29.145 33.258 17.082 Amount Norepinephrine 32 mg In 29.145 33.258 17.082 Sodium Chloride 0.9% 218 ml @ 0.03 MCG/KG/MIN 1. 467 mls/hr IV .Q24H [facility] Rx#:[id number] Oral 726 608 Output: Urine 1025 390 540 Other: Voiding Method Indwelling Catheter Indwelling Catheter ABP, PAP, CO, CI - Last Documented Arterial Blood Pressure 92/74 - Labs CBC & Chem 7: 12/15/22 05:10 12/15/22 05:10 Labs: Abnormal Lab Results - Last 24 Hours (Table) 12/15/22 12/15/22 12/15/22 Range/Units 05:10 05:10 11:55 WBC 11.9 H (3.8-10.6) k/uL Hgb 12.6 L (13.0-17.5) gm/dL Hct 38.4 L (39.0-53.0) % Plt Count 75 L (150-450) k/uL Neutrophils # 9.3 H (1.3-7.7) k/uL Chloride 111 H (98-107) mmol/L Carbon Dioxide 20 L (22-30) mmol/L POC Glucose (mg/dL) 123 H (70-110) mg/dL Phosphorus 2.4 L (2.5-4.5) mg/dL Microbiology - Last 24 Hours (Table) 12/11/22 19:30 Blood Culture Gram Stain - Final Blood Blood Culture - Final Escherichia coli 12/11/22 19:45 Blood Culture Gram Stain - Final Blood Blood Culture - Final Escherichia coli
[2022-12-16 05:06] LABS: Basophils % (A) 0 %; Eosinophils # (A) 0.4 k/uL (0-0.7); Eosinophils % (A) 5 %; HCT 37.9 % (39.0-53.0); HGB 12.2 gm/dL (13.0-17.5); Lymphocytes # (A) 1.1 k/uL (1.0-4.8); Lymphocytes % (A) 16 %; MCH 28.2 pg (25.0-35.0); MCV 88.1 fL (80.0-100.0); Mean Platelet Volume 10.7; Monocytes # (A) 0.5 k/uL (0-1.0); Monocytes % (A) 7 %; Neutrophils # (A) 4.7 k/uL (1.3-7.7); Neutrophils % (A) 68 %; RBC 4.31 m/uL (4.30-5.90); RDW 15.6 % (11.5-15.5)
[2022-12-16 05:07] LABS: Platelet Count 79 k/uL (150-450)
[2022-12-16 05:21] LABS: African American GFR (CKD) >90 (>60 ml/min/1.73 sqM); Anion Gap 5 mmol/L; Blood Urea Nitrogen 13 mg/dL (9-20); Calcium 9.2 mg/dL (8.4-10.2); Carbon Dioxide 20 mmol/L (22-30); Chloride 111 mmol/L (98-107); Glucose 99 mg/dL (74-99); Non-African American GFR(CKD) >90 (>60 ml/min/1.73 sqM); Potassium 3.6 mmol/L (3.5-5.1); Sodium 136 mmol/L (137-145)
[2022-12-16] MEDS: LEVOTHYROXINE 75 MCG TAB PO SCH (05:46)
[2022-12-16] MEDS ORDERED: POTASSIUM CHLORIDE ER 20 MEQ TAB.ER PO SCH (06:00)
[2022-12-16] MEDS: SODIUM CHLORIDE 0.9% 1,000 ML IV SCH ×2 (06:18→16:47)
[2022-12-16] MEDS: INSULIN ASPART (NovoLOG) 100 UNIT/ML VIAL SQ SCH ×4 (06:44→20:39)
[2022-12-16 06:46] LABS: Glucose,Whole Blood 97 mg/dL (70-110)
[2022-12-16] MEDS: HEPARIN SODIUM,PORCINE 5,000 UNIT/ML 1 ML VIAL SQ SCH ×3 (08:58→23:56)
[2022-12-16] MEDS: TAMSULOSIN 0.4 MG CAP.ER.24H PO SCH (08:58)
[2022-12-16] MEDS: ASPIRIN 81 MG PO SCH (08:58)
[2022-12-16] MEDS: CARBIDOPA-LEVODOPA 25-100 MG 1 EACH TAB PO SCH ×3 (08:58→23:56)
[2022-12-16] MEDS: PREGABALIN 75 MG CAP PO SCH ×3 (08:58→20:38)
[2022-12-16] MEDS: MAGNESIUM OXIDE 400 MG TAB PO SCH (08:58)
--- NOTE | 2022-12-16 10:19 | US ---
EXAMINATION TYPE: US venous doppler duplex UE RT DATE OF EXAM: 12/16/2022 COMPARISON: NONE CLINICAL INDICATION: Male, 72 years old with history of Edema RUE; Pain and edema right arm SIDE PERFORMED: right Right Arm: *technical limitations due to edema, IV's, bandages, and patient has limited mobility with right arm. No evidence of DVT as visualized. Superficial thrombus right cephalic extending into lowe r arm IMPRESSION: Limited examination. 1. No visualized deep venous thrombosis of the right upper extremity. 2. Superficial venous thrombosis of the right cephalic vein extending into the lower arm.
[2022-12-16 11:55] LABS: Glucose,Whole Blood 117 mg/dL (70-110)
--- NOTE | 2022-12-16 12:49 | P.PN ---
Subjective Progress Note Date: 12/16/22 Principal diagnosis: Sepsis, urinary tract infection. I am seeing this patient in new consultation today 12/12/2022 in the emergency room for urosepsis and septic shock requiring vasopressors and admission to the intensive care unit. Patient is a 72-year-old white male with past medical history significant for frequent urinary tract infections and previous ESBL producing organisms, diabetes mellitus, hypothyroidism, Gullian Arcade syndrome, and Parkinson's disease. Patient is currently confused and a poor historian. He has had multiple previous hospital admissions for UTIs and urosepsis. Patient came into the hospital late last night with the chief complaints of confusion and fevers. Urinalysis was consistent with urinary tract infection. CBC on arrival showed a WBC count of 3.7, hemoglobin 318.4, hematocrit 39.9, platelets 103. Initial CMP done in the emergency room showed a sodium 118, potassium 3, chloride 92, serum bicarb 14, BUN 17, creatinine 0.66, glucose 102. Patient's sodium was felt to be dilutional per emergency room physician. Repeat sodium 1 hour later was 140. normal saline is currently infusing at 130 ml/hr. Patient is currently lying in bed, on 2 L per nasal cannula, in no acute distress. Chest x-ray on arrival showed no acute cardiopulmonary process. T- max was 99.8F. Patient has been started empirically on ertapenem due to previo us ESBL producing E. coli, and an infectious disease consult has been placed. Patient's blood pressure is hypotensive despite several normal saline boluses. Patient ultimately required vasopressor support in the form of norepinephrine which is currently infusing at 0.17 mcg/kg/m. Lactic acid level on arrival was 5.3 and is down to 5.2. Blood and urine cultures are pending. Patient will be admitted to the intensive care unit once bed available. Patient was reevaluated today on , remains in the ICU, still requiring vasopressin and norepinephrine his blood cultures and urine cultures are positive for gram-negative bacilli, strongly suspect ESBL/E. coli. Patient remains on Invanz clinically feeling better mentation is improving his vasopressin was at 0.04 and I have discontinued vasopressin To him on norepinephrine at 0.26 plan to taper that down further and possibly discontinue in the meantime remains on IV fluid at 1 50 mL per hour and I have discontinued his bicarb drip as his acidosis has corrected nicely. Patient is still on 2 L nasal cannula not in distress. WBC count is improving down to 25.4 hemoglobin is 13.2, basic metabolic profile and renal profile are normal Patient was reevaluated today on 12/14/2022, remains you, on 2 L nasal cannula. Patient is being treated for urosepsis and ESBL producing E. coli noted in the urine and in the blood. Patient is still requiring norepinephrine at 0.07 mcg/kg/m his IV fluid is at 1 50 mL per hour patient is generally weak otherwise he is asymptomatic. Remains on 2 L nasal cannula. And not in distress. Amy ins on Invanz for ESBL/E. coli. WBC count today is 17.1, significantly improved compared to the last 2 days. Electrolytes are normal renal profile is normal Reevaluated today on 12/15/2022 patient remains in the ICU still requiring pressors/norepinephrine at 0.07 mcg/kg/m. Clinically the patient is feeling better, nonetheless he has extensive urosepsis and septic shock. Today I'm recommending more fluids to be given and hopefully we could taper down and discontinued his norepinephrine. Patient is treating for ESBL producing E. coli and he is on Invanz. Pulmonary-tony the patient is on room air previous x-ray on admission showed mostly atelectasis at the bases. WBC count today is 11.9 hemoglobin is 12.6 basic metabolic profile is normal and renal profile is normal Progress note dated 12/16/2022. The patient was admitted to the hospital on December 11, with a diagnosis of mental status changes, and sepsis. He came to the intensive care unit on December 11. The patient's resting comfortably, on room air. The patient's getting saline at 100 mL an hour. Urinalysis revealed evidence of extended spectrum beta-lactamase producing Escherichia coli. For that reason, the patient is on ertapenem. In addition, because of concerns of ongoing hypotension, and the need for norepinephrine, we'll check a cortisol level, TSH. In addition I've asked the nurse to discontinue the Flomax which may contribute to the patient's hypotension. In addition, we'll place a midline, as per the recommendations of infectious diseases. Finally, because of right upper extremity swelling, the patient will have a Doppler. White count is 7, hemoglobin 12.2, hematocrit 37.9, with a platelet count of 79,000. Sodium 136, potassium 3.6, chlorides 111, CO2 20, BUN 13, creatinine 0.72. Cortisol level was a bit low at 11. TSH is normal at 2.980. No evidence of DVT of the right upper extremity. There is superficial venous thrombosis of the right cephalic vein, extending into the lower arm. Objective - Vital Signs Vital signs: Vital Signs Temp 97.4 F L 12/16/22 08:30 Pulse 58 L 12/16/22 11:00 Resp 12 12/16/22 11:00 BP 93/64 12/16/22 11:00 Pulse Ox 99 12/16/22 11:00 FiO2 96 12/12/22 08:12 Intake & Output 12/15/22 12/16/22 12/16/22 18:59 06:59 18:59 Intake Total 2693.082 4380.518 9177.954 Output Total 1100 1170 420 Balance 1593.082 191.639 588.954 Weight 101.4 kg 101.4 kg Intake: IV 1950 1350 400 Ertapenem 1 gm In Sodium 50 Chloride 0.9% 50 ml @ 100 mls/hr IVPB Q24H [facility] Rx# :[id number] Sodium Chloride 0.9% 1, 950 1300 400 000 ml @ 100 mls/hr IV . Q10H [facility] Rx#:[id number] Sodium Chloride 0.9% 1, 1000 000 ml @ 999 mls/hr IV . Q1H1M [facility] Rx#:[id number] Intake, IV Titration 17.082 11.639 0.954 Amount Norepinephrine 32 mg In 17.082 11.639 0.954 Sodium Chloride 0.9% 218 ml @ 0.03 MCG/KG/MIN 1. 467 mls/hr IV .Q24H [facility] Rx#:[id number] Oral 726 608 Output: Urine 1100 1170 420 Other: Voiding Method Indwelling Catheter Indwelling Catheter Indwelling Catheter ABP, PAP, CO, CI - Last Documented Arterial Blood Pressure 92/74 - Exam No acute distress, oriented 3. Currently on room air. No conversational dyspnea or use of accessory muscles. HEENT examination is grossly unremarkable. Neck supple. Full range of motion. No adenopathy thyromegaly or neck vein distention. Cardiovascular examination reveals regular rhythm rate. S1-S2 normal. No S3 or S4. No discernible murmur noted. Heart rate 60 bpm. Heart sounds are distant. Lungs reveal clear breath sounds. Breath sounds are equal bilaterally. No adventitious lung sounds including wheezes rhonchi or crackles. Room air saturation is 99%. Abdomen soft bowel sounds are heard. No masses or tenderness. Extremities are intact. No cyanosis clubbing or edema. Skin is without rash or lesion. Neurologic examination is brief but nonfocal. - Labs CBC & Chem 7: 12/16/22 04:41 12/16/22 04:27 Labs: Abnormal Lab Results - Last 24 Hours (Table) 12/15/22 12/16/22 12/16/22 Range/Units 16:17 04:27 04:41 Hgb 12.2 L (13.0-17.5) gm/dL Hct 37.9 L (39.0-53.0) % RDW 15.6 H (11.5-15.5) % Plt Count 79 L (150-450) k/uL Sodium 136 L (137-145) mmol/L Chloride 111 H (98-107) mmol/L Carbon Dioxide 20 L (22-30) mmol/L POC Glucose (mg/dL) 125 H (70-110) mg/dL 12/16/22 Range/Units 11:54 Hgb (13.0-17.5) gm/dL Hct (39.0-53.0) % RDW (11.5-15.5) % Plt Count (150-450) k/uL Sodium (137-145) mmol/L Chloride (98-107) mmol/L Carbon Dioxide (22-30) mmol/L POC Glucose (mg/dL) 117 H (70-110) mg/dL Assessment and Plan Assessment: Septic shock secondary to urosepsis, secondary to ESBL Escherichia coli. Acute non-anion gap metabolic acidosis. Acute lactic acidosis. Sepsis induced thrombocytopenia. Hypothyroidism. History of Parkinson's disease. History of diabetic neuropathy. History of Guillain-Arcade syndrome. Acute metabolic encephalopathy. Plan: Plan dated 12/16/2022. We will check a cortisol level, and TSH. The patient has been intermittently hypotensive. In addition, we'll discontinue the Flomax. The patient will have a right upper extremity Doppler, to rule out DVT. In addition, underlying catheter will be placed for IV antibiotics. Patient is currently getting no supplemental oxygen. The patient is getting saline at 100 mL an hour. A dditional recommendations. We will continue to follow the patient make recommendations along the way. The patient's overall prognosis is very guarded. Time with Patient: Greater than 30
[2022-12-16 16:31] LABS: Glucose,Whole Blood 85 mg/dL (70-110)
--- NOTE | 2022-12-16 19:11 | P.PN ---
Subjective Progress Note Date: 12/16/22 Patient is a 72-year-old male came in with meant complains of altered mental status patient does have history of Parkinson's but as per the nursing staff patient doesn't have any history of dementia. Patient had a low-grade temperature along mild neutropenia and significant abnormal urine, normal chest x-ray did patient denied any complaints of cough dysuria increased urinary frequency or urgency. Patient is alert and oriented 1-2 had history of ESBL E. coli and patient is admitted for septic shock secondary to urinary tract infection and patient is an not a problem at this time. Patient had lactic acidosis with highly elevated lactate and patient is presently on pressor support. 12/13/2022 Patient is seen and evaluated in follow-up in the ICU with infectious disease in pulmonary asphalt paving machine operator following closely. Patient continues on pressor support of Levophed and vasopressin has been discontinued. Patient continues on IV antibiotics and preliminary cultures along with blood culture showing gram- negative bacilli. Sodium bicarb is being discontinued and patient is continued on IV hydration. Patient's mentation is improving although patient continues to feel extremely lethargic and fatigues easily. Patient is able to answer questions appropriately. 12/14/2022 Patient is in the MICU. Currently laying in the bed. Awake alert and oriented x3. Seems to be weak and lethargic. On oxygen at 2 L via nasal cannula. Patient is requiring pressor support with Levophed. Continued on Invanz for ESBL urinary tract infection. Patient has been afebrile. Denies any nausea or vomiting. No cough or sputum production. Laboratory data showed WBC 17.1 hemoglobin 12.4 and platelets 75 Sodium 139 potassium 3.4 chloride 109 bicarb is 25 BUN 16 and creatinine 0.76 and blood sugar is 111 and magnesium 2.0 12/15/2022 Patient is in the MICU. Able to sit in the chair at bedside. Awake alert and oriented x3. No complaints of chest pain or shortness of breath. Remains on Levophed which is being tapered off slowly. Patient is being continued on Invanz for ESBL urinary tract infection/septic shock. Laboratory data showed WBC improved to 11.9 hemoglobin 12.6 and platelets 75, sodium 138 potassium 3.9 chloride 101 bicarb is 20 BUN 16 and creatinine 0.67 and phosphorus 2.4 today. 12/16/2022 Patient is seen in follow-up continues to be in the ICU with intermittent low blood pressures currently off pressor support. Patient is maintained on IV Invanz with infectious disease following along with pulmonary asphalt paving machine operator. Patient having some right upper extremity pain and swelling and Doppler is ordered and pending at this time. Patient will also require IV antibiotics outpatient and is scheduled to receive a midline. Patient is currently afebrile with no reports of chest pain or shortness of breath. Patient is extremely lethargic although arousable and fatigues easily. Patient will need extensive PT/OT therapy and rehab on discharge awaiting PT/OT therapy evaluation and will discuss further with case management/social work on discharge planning. Review of systems: Constitutional: reports of fatigue, no fever, or chills Cardiovascular: No reports of chest pain or palpitations Respiratory: No reports of shortness of breath or cough GI: No reports of nausea, vomiting, or diarrhea, reports not much of an appetite : No reports of dysuria or retention Neurovascular: reports of extreme weakness, right upper extremity pain PHYSICAL EXAMINATION: GENERAL: The patient is alert and oriented x2, lethargic although arousable and answering questions more appropriately today fatigues easily. Obese HEENT: Pupils are round and equally reacting to light. EOMI. No scleral icterus. No conjunctival pallor. Normocephalic, atraumatic. No pharyngeal erythema. No thyromegaly. CARDIOVASCULAR: S1 and S2 muffled PULMONARY: Diminished breath sounds bilaterally with some scattered faint crackles noted. Weak inspiration ABDOMEN: Soft, nontender, nondistended, normoactive bowel sounds. No palpable organomegaly. MUSCULOSKELETAL: No joint swelling or deformity. EXTREMITIES: No cyanosis, clubbing, or pedal edema. Generalized edema noted of upper and lower extremities as well as face, right upper extremity worse NEUROLOGICAL: Limited exam SKIN: No rashes. Assessment: -Septic shock secondary to urinary tract infection patient is on ertapenem because of his history of ESBL E. coli. -Type 2 diabetes mellitus -History of Parkinson's disease -Anion gap metabolic acidosis secondary to lactic acidosis -Non-anion gap metabolic acidosis secondary to hyperchloremia -Chronic hypomagnesemia and hypokalemia, placing -Diabetic peripheral neuropathy -GI prophylaxis -Generalized weakness -DVT prophylaxis: Subcutaneous heparin -Obesity with BMI of 32.1 -Full code Plan: PPatient continues in the ICU and pressor support weaned off. Patient intermittently hypotensive and being monitored closely Pulmonary asphalt paving machine operator along with infectious disease following closely and patient is maintained on Invanz. Blood culture sent urine cultures drawn on 12/11/2022 showing E. coli. Repeat blood cultures were ordered and pending and other previous blood cultures showing E. coli. Patient has significant history of ESBL E. coli in the past Continue to monitor Accu-Cheks before meals and at bedtime and treat with sliding scale Patient continued on IV hydration. Encouraged oral intake Awaiting PT/OT therapy evaluation and patient will likely need ECF for signif icant weakness Per infectious disease patient will require midline for outpatient IV antibiotics. Patient is a possible downgrade out of the ICU if blood pressure is controlled and off pressor support Overall prognosis remains guarded and patient is critically ill The impression and plan of care has been dictated by Gregoria Caro, Nurse Practitioner as directed. Dr. Librado MD I have performed a history and examination and MDM of this patient, discussed the same with the dictator, and agree with the dictator's assessment and plan as written ,documented as a scribe. Based on total visit time, I have performed more than 50% of the visit. Objective - Vital Signs Vital signs: Vital Signs Temp 97.4 F L 12/16/22 08:30 Pulse 58 L 12/16/22 09:00 Resp 14 12/16/22 09:00 BP 101/66 12/16/22 09:00 Pulse Ox 95 12/16/22 09:00 FiO2 96 12/12/22 08:12 Intake & Output 12/15/22 12/16/22 12/16/22 18:59 06:59 18:59 Intake Total 2693.082 1361.639 318.954 Output Total 1100 1170 200 Balance 1593.082 191.639 118.954 Weight 101.4 kg Intake: IV 1950 1350 200 Ertapenem 1 gm In Sodium 50 Chloride 0.9% 50 ml @ 100 mls/hr IVPB Q24H [facility] Rx# :[id number] Sodium Chloride 0.9% 1, 950 1300 200 000 ml @ 100 mls/hr IV . Q10H [facility] Rx#:[id number] Sodium Chloride 0.9% 1, 1000 000 ml @ 999 mls/hr IV . Q1H1M [facility] Rx#:[id number] Intake, IV Titration 17.082 11.639 0.954 Amount Norepinephrine 32 mg In 17.082 11.639 0.954 Sodium Chloride 0.9% 218 ml @ 0.03 MCG/KG/MIN 1. 467 mls/hr IV .Q24H [facility] Rx#:[id number] Oral 726 118 Output: Urine 1100 1170 200 Other: Voiding Method Indwelling Catheter Indwelling Catheter ABP, PAP, CO, CI - Last Documented Arterial Blood Pressure 92/74 - Labs CBC & Chem 7: 12/16/22 04:41 12/16/22 04:27 Labs: Abnormal Lab Results - Last 24 Hours (Table) 12/15/22 12/15/22 12/16/22 Range/Units 11:55 16:17 04:27 Hgb (13.0-17.5) gm/dL Hct (39.0-53.0) % RDW (11.5-15.5) % Plt Count (150-450) k/uL Sodium 136 L (137-145) mmol/L Chloride 111 H (98-107) mmol/L Carbon Dioxide 20 L (22-30) mmol/L POC Glucose (mg/dL) 123 H 125 H (70-110) mg/dL 12/16/22 Range/Units 04:41 Hgb 12.2 L (13.0-17.5) gm/dL Hct 37.9 L (39.0-53.0) % RDW 15.6 H (11.5-15.5) % Plt Count 79 L (150-450) k/uL Sodium (137-145) mmol/L Chloride (98-107) mmol/L Carbon Dioxide (22-30) mmol/L POC Glucose (mg/dL) (70-110) mg/dL
[2022-12-16 20:36] LABS: Glucose,Whole Blood 86 mg/dL (70-110)
[2022-12-16] MEDS: ERTAPENEM 1 GM in SODIUM CHLORIDE 0.9% 50 ML IVPB SCH (20:38)
[2022-12-16] MEDS: PANTOPRAZOLE 40 MG TABLET PO SCH (20:38)
[2022-12-17] MEDS: SODIUM CHLORIDE 0.9% 1,000 ML IV SCH ×2 (02:05→19:37)
[2022-12-17] MEDS: NOREPINEPHRINE 32 MG in SODIUM CHLORIDE 0.9% 218 ML IV SCH (02:06)
[2022-12-17 04:40] LABS: HCT 36.2 % (39.0-53.0); HGB 12.4 gm/dL (13.0-17.5); MCH 29.9 pg (25.0-35.0); MCHC 34.4 g/dL (31.0-37.0); Mean Platelet Volume 9.8; RBC 4.16 m/uL (4.30-5.90); RDW 15.3 % (11.5-15.5); WBC 4.7 k/uL (3.8-10.6)
[2022-12-17 04:54] LABS: ALT <6 U/L (4-49); AST 18 U/L (17-59); African American GFR (CKD) >90 (>60 ml/min/1.73 sqM); Albumin 2.2 g/dL (3.5-5.0); Alkaline Phosphatase 84 U/L (38-126); Anion Gap 5 mmol/L; Blood Urea Nitrogen 11 mg/dL (9-20); Calcium 9.1 mg/dL (8.4-10.2); Carbon Dioxide 22 mmol/L (22-30); Chloride 109 mmol/L (98-107); Glucose 69 mg/dL (74-99); Non-African American GFR(CKD) >90 (>60 ml/min/1.73 sqM); Potassium 3.6 mmol/L (3.5-5.1); Sodium 136 mmol/L (137-145); Total Bilirubin 0.4 mg/dL (0.2-1.3); Total Protein 4.7 g/dL (6.3-8.2)
[2022-12-17 05:33] LABS: Platelet Count 93 k/uL (150-450)
[2022-12-17] MEDS: LEVOTHYROXINE 75 MCG TAB PO SCH (06:06)
[2022-12-17 06:13] LABS: Glucose,Whole Blood 66 mg/dL (70-110)
[2022-12-17 06:34] LABS: Glucose,Whole Blood 84 mg/dL (70-110)
[2022-12-17] MEDS: INSULIN ASPART (NovoLOG) 100 UNIT/ML VIAL SQ SCH ×4 (06:37→20:37)
[2022-12-17 07:04] LABS: Eosinophils # (M) 0.19 k/uL (0-0.7); Lymphocytes # (M) 1.18 k/uL (1.0-4.8); Metamyelocytes # (M) 0.05 k/uL (0); Metamyelocytes % 1 %; Monocytes # (M) 0.47 k/uL (0-1.0); Neutrophils # (M) 2.82 k/uL (1.3-7.7); Neutrophils % (M) 60 %; Nucleated Red Blood Cells 0 /100 WBC (0-0); Total Cells Counted 100
[2022-12-17] MEDS ORDERED: POTASSIUM CHLORIDE ER 20 MEQ TAB.ER PO SCH (08:00)
[2022-12-17] MEDS: HEPARIN SODIUM,PORCINE 5,000 UNIT/ML 1 ML VIAL SQ SCH ×3 (08:12→23:29)
[2022-12-17] MEDS: ASPIRIN 81 MG PO SCH (08:12)
[2022-12-17] MEDS: CARBIDOPA-LEVODOPA 25-100 MG 1 EACH TAB PO SCH ×3 (08:12→23:29)
[2022-12-17] MEDS: PREGABALIN 75 MG CAP PO SCH ×3 (08:12→20:17)
[2022-12-17] MEDS: MAGNESIUM OXIDE 400 MG TAB PO SCH (08:12)
--- NOTE | 2022-12-17 11:09 | P.PN ---
Subjective Progress Note Date: 12/17/22 Principal diagnosis: Sepsis, urinary tract infection. I am seeing this patient in new consultation today 12/12/2022 in the emergency room for urosepsis and septic shock requiring vasopressors and admission to the intensive care unit. Patient is a 72-year-old white male with past medical history significant for frequent urinary tract infections and previous ESBL producing organisms, diabetes mellitus, hypothyroidism, Gullian Ledger syndrome, and Parkinson's disease. Patient is currently confused and a poor historian. He has had multiple previous hospital admissions for UTIs and urosepsis. Patient came into the hospital late last night with the chief complaints of confusion and fevers. Urinalysis was consistent with urinary tract infection. CBC on arrival showed a WBC count of 3.7, hemoglobin 318.4, hematocrit 39.9, platelets 103. Initial CMP done in the emergency room showed a sodium 118, potassium 3, chloride 92, serum bicarb 14, BUN 17, creatinine 0.66, glucose 102. Patient's sodium was felt to be dilutional per emergency room physician. Repeat sodium 1 hour later was 140. normal saline is currently infusing at 130 ml/hr. Patient is currently lying in bed, on 2 L per nasal cannula, in no acute distress. Chest x-ray on arrival showed no acute cardiopulmonary process. T- max was 99.8F. Patient has been started empirically on ertapenem due to previo us ESBL producing E. coli, and an infectious disease consult has been placed. Patient's blood pressure is hypotensive despite several normal saline boluses. Patient ultimately required vasopressor support in the form of norepinephrine which is currently infusing at 0.17 mcg/kg/m. Lactic acid level on arrival was 5.3 and is down to 5.2. Blood and urine cultures are pending. Patient will be admitted to the intensive care unit once bed available. Patient was reevaluated today on , remains in the ICU, still requiring vasopressin and norepinephrine his blood cultures and urine cultures are positive for gram-negative bacilli, strongly suspect ESBL/E. coli. Patient remains on Invanz clinically feeling better mentation is improving his vasopressin was at 0.04 and I have discontinued vasopressin To him on norepinephrine at 0.26 plan to taper that down further and possibly discontinue in the meantime remains on IV fluid at 1 50 mL per hour and I have discontinued his bicarb drip as his acidosis has corrected nicely. Patient is still on 2 L nasal cannula not in distress. WBC count is improving down to 25.4 hemoglobin is 13.2, basic metabolic profile and renal profile are normal Patient was reevaluated today on 12/14/2022, remains you, on 2 L nasal cannula. Patient is being treated for urosepsis and ESBL producing E. coli noted in the urine and in the blood. Patient is still requiring norepinephrine at 0.07 mcg/kg/m his IV fluid is at 1 50 mL per hour patient is generally weak otherwise he is asymptomatic. Remains on 2 L nasal cannula. And not in distress. Amy ins on Invanz for ESBL/E. coli. WBC count today is 17.1, significantly improved compared to the last 2 days. Electrolytes are normal renal profile is normal Reevaluated today on 12/15/2022 patient remains in the ICU still requiring pressors/norepinephrine at 0.07 mcg/kg/m. Clinically the patient is feeling better, nonetheless he has extensive urosepsis and septic shock. Today I'm recommending more fluids to be given and hopefully we could taper down and discontinued his norepinephrine. Patient is treating for ESBL producing E. coli and he is on Invanz. Pulmonary-tony the patient is on room air previous x-ray on admission showed mostly atelectasis at the bases. WBC count today is 11.9 hemoglobin is 12.6 basic metabolic profile is normal and renal profile is normal Progress note dated 12/16/2022. The patient was admitted on December 11, and came to the intensive care unit, on the same day. He is seen in room 254. The patient's resting comfortably, on room air. The patient's getting saline at 100 mL an hour. Urinalysis revealed evidence of extended spectrum beta-lactamase producing Escherichia coli. For that reason, the patient is on ertapenem. In addition, because of concerns of ongoing hypotension, and the need for norepinephrine, we'll check a cortisol level, TSH. In addition I've asked the nurse to discontinue the Flomax which may contribute to the patient's hypotension. In addition, we'll place a midline, as per the recommendations of infectious diseases. Finally, because of right upper extremity swelling, the patient will have a Doppler. White count is 7, hemoglobin 12.2, hematocrit 37.9, with a platelet count of 79,000. Sodium 136, potassium 3.6, chlorides 111, CO2 20, BUN 13, creatinine 0.72. Cortisol level was a bit low at 11. TSH is normal at 2.980. No evidence of DVT of the right upper extremity. There is superficial venous thrombosis of the right cephalic vein, extending into the lower arm. Progress note dated 12/17/2022. 72-year-old male seen today in room 254. Currently, he's on room air. He's getting saline at 100 mL an hour. He's been treated with ertapenem, her extended spectrum beta lactamase producing E. coli, both in the blood and urine. Clinically, the patient appears to be doing reasonably well. Today's white c ount is 4.7, hemoglobin 12.4, hematocrit 36.2, with a platelet count of 93,000. Sodium 136, potassium 3.6, chlorides 109, CO2 22, E1 11, creatinine 0.73. Albumin is 2.2. Objective - Vital Signs Vital signs: Vital Signs Temp 97.4 F L 12/17/22 08:00 Pulse 54 L 12/17/22 09:00 Resp 10 L 12/17/22 09:00 BP 98/66 12/17/22 09:00 Pulse Ox 94 L 12/17/22 09:00 FiO2 96 12/12/22 08:12 Intake & Output 12/16/22 12/17/22 12/17/22 18:59 06:59 18:59 Intake Total 9233.947 0225 300 Output Total 1330 1215 425 Balance 378.954 85 -125 Weight 101.4 kg 99.2 kg Intake: IV 1100 1300 200 Sodium Chloride 0.9% 1, 1100 1300 200 000 ml @ 100 mls/hr IV . Q10H [facility] Rx#:[id number] Intake, IV Titration 0.954 Amount Norepinephrine 32 mg In 0.954 Sodium Chloride 0.9% 218 ml @ 0.03 MCG/KG/MIN 1. 467 mls/hr IV .Q24H [facility] Rx#:[id number] Oral 608 100 Output: Urine 1330 1215 425 Other: Voiding Method Indwelling Catheter Indwelling Catheter Indwelling Catheter ABP, PAP, CO, CI - Last Documented Arterial Blood Pressure 92/74 - Exam No acute distress, oriented 3. Currently on room air. No conversational dyspnea or use of accessory muscles. HEENT examination is grossly unremarkable. Neck supple. Full range of motion. No adenopathy thyromegaly or neck vein distention. Cardiovascular examination reveals regular rhythm rate. S1-S2 normal. No S3 or S4. No discernible murmur noted. Heart rate 54 bpm. Heart sounds are distant. Lungs reveal clear breath sounds. Breath sounds are equal bilaterally. No adventitious lung sounds including wheezes rhonchi or crackles. Room air saturation is 94 %. Abdomen soft bowel sounds are heard. No masses or tenderness. Extremities are intact. No cyanosis clubbing or edema. Swelling is noted to the right upper extremity. Skin is without rash or lesion. Neurologic examination is brief but nonfocal. - Labs CBC & Chem 7: 12/17/22 03:58 12/17/22 03:58 Labs: Abnormal Lab Results - Last 24 Hours (Table) 12/16/22 12/17/22 12/17/22 Range/Units 11:54 03:58 03:58 RBC 4.16 L (4.30-5.90) m/uL Hgb 12.4 L (13.0-17.5) gm/dL Hct 36.2 L (39.0-53.0) % Plt Count 93 L (150-450) k/uL Metamyelocytes # (Man) 0.05 H (0) k/uL Sodium 136 L (137-145) mmol/L Chloride 109 H (98-107) mmol/L Glucose 69 L (74-99) mg/dL POC Glucose (mg/dL) 117 H (70-110) mg/dL Total Protein 4.7 L (6.3-8.2) g/dL Albumin 2.2 L (3.5-5.0) g/dL 12/17/22 Range/Units 06:12 RBC (4.30-5.90) m/uL Hgb (13.0-17.5) gm/dL Hct (39.0-53.0) % Plt Count (150-450) k/uL Metamyelocytes # (Man) (0) k/uL Sodium (137-145) mmol/L Chloride (98-107) mmol/L Glucose (74-99) mg/dL POC Glucose (mg/dL) 66 L (70-110) mg/dL Total Protein (6.3-8.2) g/dL Albumin (3.5-5.0) g/dL Assessment and Plan Assessment: Septic shock secondary to urosepsis, secondary to ESBL Escherichia coli. Acute non-anion gap metabolic acidosis. Acute lactic acidosis. Sepsis induced thrombocytopenia. Hypothyroidism. History of Parkinson's disease. History of diabetic neuropathy. History of Guillain-Ledger syndrome. Acute metabolic encephalopathy. Plan: Plan dated 12/16/2022. We will check a cortisol level, and TSH. The patient has been intermittently hypotensive. In addition, we'll discontinue the Flomax. The patient will have a right upper extremity Doppler, to rule out DVT. In addition, underlying catheter will be placed for IV antibiotics. Patient is currently getting no sup plemental oxygen. The patient is getting saline at 100 mL an hour. Additional recommendations. We will continue to follow the patient make recommendations along the way. The patient's overall prognosis is very guarded. Plan dated 12/17/2022. The patient's right upper extremity Doppler, was negative for deep vein thrombosis. The patient continues on antibiotics in the form of ertapenem, for the ESBL Escherichia coli. We will continue to follow the patient, and make recommendations along the way. Labs, x-rays, medications are reviewed. Currently, the patient's on room air. The patient's IV of saline at 100 mL an hour, can be discontinued. Patient's eating well. No additional recom mendations are made. Prognosis is guarded. Time with Patient: Less than 30
[2022-12-17 11:53] LABS: Glucose,Whole Blood 79 mg/dL (70-110)
--- NOTE | 2022-12-17 14:14 | P.PN ---
Subjective Progress Note Date: 12/16/22 Principal diagnosis: Sepsis, UTI and bacteremia Patient is a 72-year-old male with a past medical history significant for diabetes mellitus, Guillain-Hoffman syndrome Parkinson disease frequent fall and history of recurrent UTI has been brought to the hospital for evaluation of fever and mental status changes, initially admitted to ICU because of hypertension. On today's evaluation that is 12/16/2022, the patient remains to be afebrile, the patient is breathing comfortably on room air without the need for supplemental oxygen and no shortness of breath, the patient denies having any chest pain or cough, patient denies nausea/vomiting /diarrhea and no abdominal pain, Patient did have white count has normalized to 7.0, creatinine 0.72, blood culture E.coli , urine with ESBL e.coli Objective - Vital Signs Vital signs: Vital Signs Temp 98.3 F 12/16/22 16:00 Pulse 75 12/16/22 19:00 Resp 14 12/16/22 19:00 BP 97/59 12/16/22 19:00 Pulse Ox 92 L 12/16/22 19:00 FiO2 96 12/12/22 08:12 Intake & Output 12/16/22 12/16/22 12/17/22 06:59 18:59 06:59 Intake Total 7505.017 3532.954 100 Output Total 1170 1330 125 Balance 191.639 378.954 -25 Weight 101.4 kg 101.4 kg Intake: IV 1350 1100 100 Ertapenem 1 gm In Sodium 50 Chloride 0.9% 50 ml @ 100 mls/hr IVPB Q24H [facility] Rx# :[id number] Sodium Chloride 0.9% 1, 1300 1100 100 000 ml @ 100 mls/hr IV . Q10H [facility] Rx#:[id number] Intake, IV Titration 11.639 0.954 Amount Norepinephrine 32 mg In 11.639 0.954 Sodium Chloride 0.9% 218 ml @ 0.03 MCG/KG/MIN 1. 467 mls/hr IV .Q24H [facility] Rx#:[id number] Oral 608 Output: Urine 1170 1330 125 Other: Voiding Method Indwelling Catheter Indwelling Catheter ABP, PAP, CO, CI - Last Documented Arterial Blood Pressure 92/74 - Exam GENERAL DESCRIPTION: An elderly male lying in bed in no distress RESPIRATORY SYSTEM: Unlabored breathing , decreased breath sounds at bases HEART: S1 S2 regular rate and rhythm , ABDOMEN: Soft , no tenderness EXTREMITIES: No edema feet - Labs CBC & Chem 7: 12/17/22 03:58 12/17/22 03:58 Labs: Abnormal Lab Results - Last 24 Hours (Table) 12/16/22 12/16/22 12/16/22 Range/Units 04:27 04:41 11:54 Hgb 12.2 L (13.0-17.5) gm/dL Hct 37.9 L (39.0-53.0) % RDW 15.6 H (11.5-15.5) % Plt Count 79 L (150-450) k/uL Sodium 136 L (137-145) mmol/L Chloride 111 H (98-107) mmol/L Carbon Dioxide 20 L (22-30) mmol/L POC Glucose (mg/dL) 117 H (70-110) mg/dL Assessment and Plan (1) Gram-negative bacteremia Current Visit: Yes Status: Acute Code(s): R78.81 - BACTEREMIA SNOMED Code(s): 377620539016 (2) Sepsis Current Visit: Yes Status: Acute Code(s): A41.9 - SEPSIS, UNSPECIFIED ORGANISM SNOMED Code(s): 61810401 (3) UTI (urinary tract infection) Current Visit: Yes Status: Acute Code(s): N39.0 - URINARY TRACT INFECTION, SITE NOT SPECIFIED SNOMED Code(s): 47619905 Plan: 1patient presented to hospital with sepsis in this patient with a fever tachycardia elevated white count source is likely urinary in this patient who do have a history of recurrent UTI with a positive UA and history of ESBL E. coli we will need to cover for resistant gram-negative while waiting for the culture to finalize 2- ultrasound of the kidney bladder with no evidence of any structural abnormality or obstructive uropathy 3-patient afebrile and white count has normalized, patient will continue with Invanz 1 g daily and monitor clinical course closely Dictation was produced using [employer] software. please excuse any grammatical, word or spelling errors. Time with Patient: Less than 30
--- NOTE | 2022-12-17 14:15 | P.PN ---
Subjective Progress Note Date: 12/17/22 Principal diagnosis: Sepsis, UTI and bacteremia Patient is a 72-year-old male with a past medical history significant for diabetes mellitus, Guillain-Hoffman syndrome Parkinson disease frequent fall and history of recurrent UTI has been brought to the hospital for evaluation of fever and mental status changes, initially admitted to ICU because of hypertension. On today's evaluation that is 12/17/2022, the patient continues to be afebrile the patient is breathing comfortably on room air, the patient denies chest pain, shortness of breath or cough, patient denies abdominal pain, no nausea/vomiting and no diarrhea Patient did have white count of 4.7, creatinine 0.73, blood culture E.coli , urine with ESBL e.coli Objective - Vital Signs Vital signs: Vital Signs Temp 97.7 F 12/17/22 12:00 Pulse 58 L 12/17/22 12:00 Resp 11 L 12/17/22 12:00 BP 105/67 12/17/22 12:00 Pulse Ox 93 L 12/17/22 12:00 FiO2 96 12/12/22 08:12 Intake & Output 12/16/22 12/17/22 12/17/22 18:59 06:59 18:59 Intake Total 6348.020 6382 300 Output Total 1330 1215 775 Balance 378.954 85 -475 Weight 101.4 kg 99.2 kg Intake: IV 1100 1300 200 Sodium Chloride 0.9% 1, 1100 1300 200 000 ml @ 20 mls/hr IV . Q24H [facility] Rx#:[id number] Intake, IV Titration 0.954 Amount Norepinephrine 32 mg In 0.954 Sodium Chloride 0.9% 218 ml @ 0.03 MCG/KG/MIN 1. 467 mls/hr IV .Q24H [facility] Rx#:[id number] Oral 608 100 Output: Urine 1330 1215 775 Other: Voiding Method Indwelling Catheter Indwelling Catheter Indwelling Catheter ABP, PAP, CO, CI - Last Documented Arterial Blood Pressure 92/74 - Exam GENERAL DESCRIPTION: An elderly male lying in bed in no distress RESPIRATORY SYSTEM: Unlabored breathing , decreased breath sounds at bases HEART: S1 S2 regular rate and rhythm , ABDOMEN: Soft , no tenderness EXTREMITIES: No edema feet - Labs CBC & Chem 7: 12/17/22 03:58 12/17/22 03:58 Labs: Abnormal Lab Results - Last 24 Hours (Table) 12/17/22 12/17/22 12/17/22 Range/Units 03:58 03:58 06:12 RBC 4.16 L (4.30-5.90) m/uL Hgb 12.4 L (13.0-17.5) gm/dL Hct 36.2 L (39.0-53.0) % Plt Count 93 L (150-450) k/uL Metamyelocytes # (Man) 0.05 H (0) k/uL Sodium 136 L (137-145) mmol/L Chloride 109 H (98-107) mmol/L Glucose 69 L (74-99) mg/dL POC Glucose (mg/dL) 66 L (70-110) mg/dL Total Protein 4.7 L (6.3-8.2) g/dL Albumin 2.2 L (3.5-5.0) g/dL Assessment and Plan (1) Gram-negative bacteremia Current Visit: Yes Status: Acute Code(s): R78.81 - BACTEREMIA SNOMED Code(s): 249781407676 (2) Sepsis Current Visit: Yes Status: Acute Code(s): A41.9 - SEPSIS, UNSPECIFIED ORGANISM SNOMED Code(s): 45406337 (3) UTI (urinary tract infection) Current Visit: Yes Status: Acute Code(s): N39.0 - URINARY TRACT INFECTION, SITE NOT SPECIFIED SNOMED Code(s): 35141748 Plan: 1patient presented to hospital with sepsis in this patient with a fever tachycardia elevated white count source is likely urinary in this patient who do have a history of recurrent UTI with a positive UA and history of ESBL E. coli we will need to cover for resistant gram-negative while waiting for the culture to finalize 2- ultrasound of the kidney bladder with no evidence of any structural abnormality or obstructive uropathy 3-patient afebrile and white count has normalized, 4- patient to continue with Invanz 1 g daily to finish a two-week course of t herapy Dictation was produced using [employer] dictation software. please excuse any grammatical, word or spelling errors. Time with Patient: Less than 30
[2022-12-17] MEDS: ACETAMINOPHEN TAB 325 MG TAB PO PRN ×2 (15:14→20:18)
[2022-12-17 16:56] LABS: Glucose,Whole Blood 107 mg/dL (70-110)
[2022-12-17] MEDS: ERTAPENEM 1 GM in SODIUM CHLORIDE 0.9% 50 ML IVPB SCH (19:34)
[2022-12-17] MEDS: PANTOPRAZOLE 40 MG TABLET PO SCH (20:17)
[2022-12-17 20:36] LABS: Glucose,Whole Blood 138 mg/dL (70-110)
[2022-12-18] MEDS: NOREPINEPHRINE 32 MG in SODIUM CHLORIDE 0.9% 218 ML IV SCH (03:42)
[2022-12-18] MEDS: LEVOTHYROXINE 75 MCG TAB PO SCH (06:03)
[2022-12-18] MEDS: INSULIN ASPART (NovoLOG) 100 UNIT/ML VIAL SQ SCH ×4 (06:06→22:33)
[2022-12-18 06:07] LABS: Glucose,Whole Blood 100 mg/dL (70-110)
--- NOTE | 2022-12-18 06:12 | P.PN ---
Subjective Progress Note Date: 12/17/22 Patient is a 72-year-old male came in with meant complains of altered mental status patient does have history of Parkinson's but as per the nursing staff patient doesn't have any history of dementia. Patient had a low-grade temperature along mild neutropenia and significant abnormal urine, normal chest x-ray did patient denied any complaints of cough dysuria increased urinary frequency or urgency. Patient is alert and oriented 1-2 had history of ESBL E. coli and patient is admitted for septic shock secondary to urinary tract infection and patient is an not a problem at this time. Patient had lactic acidosis with highly elevated lactate and patient is presently on pressor support. 12/13/2022 Patient is seen and evaluated in follow-up in the ICU with infectious disease in pulmonary roof service technician following closely. Patient continues on pressor support of Levophed and vasopressin has been discontinued. Patient continues on IV antibiotics and preliminary cultures along with blood culture showing gram- negative bacilli. Sodium bicarb is being discontinued and patient is continued on IV hydration. Patient's mentation is improving although patient continues to feel extremely lethargic and fatigues easily. Patient is able to answer questions appropriately. 12/14/2022 Patient is in the MICU. Currently laying in the bed. Awake alert and oriented x3. Seems to be weak and lethargic. On oxygen at 2 L via nasal cannula. Patient is requiring pressor support with Levophed. Continued on Invanz for ESBL urinary tract infection. Patient has been afebrile. Denies any nausea or vomiting. No cough or sputum production. Laboratory data showed WBC 17.1 hemoglobin 12.4 and platelets 75 Sodium 139 potassium 3.4 chloride 109 bicarb is 25 BUN 16 and creatinine 0.76 and blood sugar is 111 and magnesium 2.0 12/15/2022 Patient is in the MICU. Able to sit in the chair at bedside. Awake alert and oriented x3. No complaints of chest pain or shortness of breath. Remains on Levophed which is being tapered off slowly. Patient is being continued on Invanz for ESBL urinary tract infection/septic shock. Laboratory data showed WBC improved to 11.9 hemoglobin 12.6 and platelets 75, sodium 138 potassium 3.9 chloride 101 bicarb is 20 BUN 16 and creatinine 0.67 and phosphorus 2.4 today. 12/16/2022 Patient is seen in follow-up continues to be in the ICU with intermittent low blood pressures currently off pressor support. Patient is maintained on IV Invanz with infectious disease following along with pulmonary roof service technician. Patient having some right upper extremity pain and swelling and Doppler is ordered and pending at this time. Patient will also require IV antibiotics outpatient and is scheduled to receive a midline. Patient is currently afebrile with no reports of chest pain or shortness of breath. Patient is extremely lethargic although arousable and fatigues easily. Patient will need extensive PT/OT therapy and rehab on discharge awaiting PT/OT therapy evaluation and will discuss further with case management/social work on discharge planning. 12/17/2022 Patient is seen and evaluated in follow-up today continues to be closely monitored in the ICU and has been downgraded although awaiting a bed on 3 S. Patient is maintained on antibiotics and most recent blood cultures have been negative for 24 hours. Infectious disease following and will plan for midline is patient will likely require IV antibiotics on discharge. Patient with significant weakness and social work following planning on ECF. Patient continues to report right upper extremity pain and Doppler showed an SVT and IV lines were removed from that site. Patient is extremely lethargic although arousable and able to stay awake longer during conversation. Patient is a poor historian and daughter helps. Patient is currently afebrile and white count within normal limits. Follow-up on repeat labs and replace electrolytes per protocol. Encouraged oral intake and recommended PT/OT therapy daily. Review of systems: Constitutional: reports of fatigue, no fever, or chills Cardiovascular: No reports of chest pain or palpitations Respiratory: No reports of shortness of breath or cough GI: No reports of nausea, vomiting, or diarrhea, reports not much of an appetite : No reports of dysuria or retention Neurovascular: reports of extreme weakness, right upper extremity pain PHYSICAL EXAMINATION: GENERAL: The patient is alert and oriented x2, lethargic although arousable and answering questions more appropriately today fatigues easily. Obese HEENT: Pupils are round and equally reacting to light. EOMI. No scleral icterus. No conjunctival pallor. Normocephalic, atraumatic. No pharyngeal erythema. No thyromegaly. CARDIOVASCULAR: S1 and S2 muffled PULMONARY: Diminished breath sounds bilaterally with some scattered faint crackles noted. Weak inspiration ABDOMEN: Soft, nontender, nondistended, normoactive bowel sounds. No palpable organomegaly. MUSCULOSKELETAL: No joint swelling or deformity. EXTREMITIES: No cyanosis, clubbing, or pedal edema. Generalized edema noted of upper and lower extremities as well as face, right upper extremity worse NEUROLOGICAL: Limited exam SKIN: No rashes. Assessment: -Septic shock secondary to urinary tract infection patient is on ertapenem because of his history of ESBL E. coli. -Type 2 diabetes mellitus -History of Parkinson's disease -Anion gap metabolic acidosis secondary to lactic acidosis -Non-anion gap metabolic acidosis secondary to hyperchloremia -Chronic hypomagnesemia and hypokalemia, improved. -Diabetic peripheral neuropathy -GI prophylaxis -Generalized weakness -DVT prophylaxis: Subcutaneous heparin -Obesity with BMI of 32.1 -Full code Plan: PPatient continues in the ICU and has been downgraded awaiting a 3 S. Pulmonary roof service technician along with infectious disease following closely and patient is maintained on Invanz. Blood culture sent urine cultures drawn on 12/11/2022 showing E. coli. Repeat blood cultures thus far are negative for 24 hours. previous blood cultures showing E. coli. Patient has significant history of ESBL E. coli in the past Continue to monitor Accu-Cheks before meals and at bedtime and treat with sliding scale Patient continued on IV hydration. Encouraged oral intake Recommend PT/OT therapy evaluation and patient will need ECF for significant weakness. Social work following Per infectious disease patient will require midline for outpatient IV antibiotics. Midline ordered Overall prognosis remains guarded at this time The impression and plan of care has been dictated by Gregoria Caro, Nurse Practitioner as directed. Dr. Librado MD I have performed a history and examination and MDM of this patient, discussed the same with the dictator, and agree with the dictator's assessment and plan as written ,documented as a scribe. Based on total visit time, I have performed more than 50% of the visit. Objective - Vital Signs Vital signs: Vital Signs Temp 97.4 F L 12/17/22 08:00 Pulse 54 L 12/17/22 09:00 Resp 10 L 12/17/22 09:00 BP 98/66 12/17/22 09:00 Pulse Ox 94 L 12/17/22 09:00 FiO2 96 12/12/22 08:12 Intake & Output 12/16/22 12/17/22 12/17/22 18:59 06:59 18:59 Intake Total 7425.530 5422 300 Output Total 1330 1215 425 Balance 378.954 85 -125 Weight 101.4 kg 99.2 kg Intake: IV 1100 1300 200 Sodium Chloride 0.9% 1, 1100 1300 200 000 ml @ 100 mls/hr IV . Q10H [facility] Rx#:[id number] Intake, IV Titration 0.954 Amount Norepinephrine 32 mg In 0.954 Sodium Chloride 0.9% 218 ml @ 0.03 MCG/KG/MIN 1. 467 mls/hr IV .Q24H [facility] Rx#:[id number] Oral 608 100 Output: Urine 1330 1215 425 Other: Voiding Method Indwelling Catheter Indwelling Catheter Indwelling Catheter ABP, PAP, CO, CI - Last Documented Arterial Blood Pressure 92/74 - Labs CBC & Chem 7: 12/17/22 03:58 12/17/22 03:58 Labs: Abnormal Lab Results - Last 24 Hours (Table) 12/16/22 12/17/22 12/17/22 Range/Units 11:54 03:58 03:58 RBC 4.16 L (4.30-5.90) m/uL Hgb 12.4 L (13.0-17.5) gm/dL Hct 36.2 L (39.0-53.0) % Plt Count 93 L (150-450) k/uL Metamyelocytes # (Man) 0.05 H (0) k/uL Sodium 136 L (137-145) mmol/L Chloride 109 H (98-107) mmol/L Glucose 69 L (74-99) mg/dL POC Glucose (mg/dL) 117 H (70-110) mg/dL Total Protein 4.7 L (6.3-8.2) g/dL Albumin 2.2 L (3.5-5.0) g/dL 12/17/22 Range/Units 06:12 RBC (4.30-5.90) m/uL Hgb (13.0-17.5) gm/dL Hct (39.0-53.0) % Plt Count (150-450) k/uL Metamyelocytes # (Man) (0) k/uL Sodium (137-145) mmol/L Chloride (98-107) mmol/L Glucose (74-99) mg/dL POC Glucose (mg/dL) 66 L (70-110) mg/dL Total Protein (6.3-8.2) g/dL Albumin (3.5-5.0) g/dL
[2022-12-18 08:02] LABS: Glucose,Whole Blood 85 mg/dL (70-110)
[2022-12-18] MEDS: CARBIDOPA-LEVODOPA 25-100 MG 1 EACH TAB PO SCH ×3 (08:03→22:34)
[2022-12-18] MEDS: HEPARIN SODIUM,PORCINE 5,000 UNIT/ML 1 ML VIAL SQ SCH ×2 (08:03→16:20)
[2022-12-18] MEDS: MAGNESIUM OXIDE 400 MG TAB PO SCH (08:04)
[2022-12-18] MEDS: PREGABALIN 75 MG CAP PO SCH ×3 (08:04→22:34)
[2022-12-18] MEDS: ASPIRIN 81 MG PO SCH (08:04)
[2022-12-18 11:05] VITALS: BMI 31.4
--- NOTE | 2022-12-18 12:06 | P.PN ---
Subjective Progress Note Date: 12/18/22 Principal diagnosis: Sepsis, urinary tract infection. I am seeing this patient in new consultation today 12/12/2022 in the emergency room for urosepsis and septic shock requiring vasopressors and admission to the intensive care unit. Patient is a 72-year-old white male with past medical history significant for frequent urinary tract infections and previous ESBL producing organisms, diabetes mellitus, hypothyroidism, Gullian Jefferson syndrome, and Parkinson's disease. Patient is currently confused and a poor historian. He has had multiple previous hospital admissions for UTIs and urosepsis. Patient came into the hospital late last night with the chief complaints of confusion and fevers. Urinalysis was consistent with urinary tract infection. CBC on arrival showed a WBC count of 3.7, hemoglobin 318.4, hematocrit 39.9, platelets 103. Initial CMP done in the emergency room showed a sodium 118, potassium 3, chloride 92, serum bicarb 14, BUN 17, creatinine 0.66, glucose 102. Patient's sodium was felt to be dilutional per emergency room physician. Repeat sodium 1 hour later was 140. normal saline is currently infusing at 130 ml/hr. Patient is currently lying in bed, on 2 L per nasal cannula, in no acute distress. Chest x-ray on arrival showed no acute cardiopulmonary process. T- max was 99.8F. Patient has been started empirically on ertapenem due to previo us ESBL producing E. coli, and an infectious disease consult has been placed. Patient's blood pressure is hypotensive despite several normal saline boluses. Patient ultimately required vasopressor support in the form of norepinephrine which is currently infusing at 0.17 mcg/kg/m. Lactic acid level on arrival was 5.3 and is down to 5.2. Blood and urine cultures are pending. Patient will be admitted to the intensive care unit once bed available. Patient was reevaluated today on , remains in the ICU, still requiring vasopressin and norepinephrine his blood cultures and urine cultures are positive for gram-negative bacilli, strongly suspect ESBL/E. coli. Patient remains on Invanz clinically feeling better mentation is improving his vasopressin was at 0.04 and I have discontinued vasopressin To him on norepinephrine at 0.26 plan to taper that down further and possibly discontinue in the meantime remains on IV fluid at 1 50 mL per hour and I have discontinued his bicarb drip as his acidosis has corrected nicely. Patient is still on 2 L nasal cannula not in distress. WBC count is improving down to 25.4 hemoglobin is 13.2, basic metabolic profile and renal profile are normal Patient was reevaluated today on 12/14/2022, remains you, on 2 L nasal cannula. Patient is being treated for urosepsis and ESBL producing E. coli noted in the urine and in the blood. Patient is still requiring norepinephrine at 0.07 mcg/kg/m his IV fluid is at 1 50 mL per hour patient is generally weak otherwise he is asymptomatic. Remains on 2 L nasal cannula. And not in distress. Amy ins on Invanz for ESBL/E. coli. WBC count today is 17.1, significantly improved compared to the last 2 days. Electrolytes are normal renal profile is normal Reevaluated today on 12/15/2022 patient remains in the ICU still requiring pressors/norepinephrine at 0.07 mcg/kg/m. Clinically the patient is feeling better, nonetheless he has extensive urosepsis and septic shock. Today I'm recommending more fluids to be given and hopefully we could taper down and discontinued his norepinephrine. Patient is treating for ESBL producing E. coli and he is on Invanz. Pulmonary-tony the patient is on room air previous x-ray on admission showed mostly atelectasis at the bases. WBC count today is 11.9 hemoglobin is 12.6 basic metabolic profile is normal and renal profile is normal Progress note dated 12/16/2022. The patient was admitted on December 11, and came to the intensive care unit, on the same day. He is seen in room 254. The patient's resting comfortably, on room air. The patient's getting saline at 100 mL an hour. Urinalysis revealed evidence of extended spectrum beta-lactamase producing Escherichia coli. For that reason, the patient is on ertapenem. In addition, because of concerns of ongoing hypotension, and the need for norepinephrine, we'll check a cortisol level, TSH. In addition I've asked the nurse to discontinue the Flomax which may contribute to the patient's hypotension. In addition, we'll place a midline, as per the recommendations of infectious diseases. Finally, because of right upper extremity swelling, the patient will have a Doppler. White count is 7, hemoglobin 12.2, hematocrit 37.9, with a platelet count of 79,000. Sodium 136, potassium 3.6, chlorides 111, CO2 20, BUN 13, creatinine 0.72. Cortisol level was a bit low at 11. TSH is normal at 2.980. No evidence of DVT of the right upper extremity. There is superficial venous thrombosis of the right cephalic vein, extending into the lower arm. Progress note dated 12/17/2022. 72-year-old male seen today in room 254. Currently, he's on room air. He's getting saline at 100 mL an hour. He's been treated with ertapenem, her extended spectrum beta lactamase producing E. coli, both in the blood and urine. Clinically, the patient appears to be doing reasonably well. Today's white c ount is 4.7, hemoglobin 12.4, hematocrit 36.2, with a platelet count of 93,000. Sodium 136, potassium 3.6, chlorides 109, CO2 22, E1 11, creatinine 0.73. Albumin is 2.2. Progress note dated 12/18/2022. 72-year-old male seen today in room 254, intensive care unit. He is currently on room air. Is getting saline at 20 mL an hour. An midline catheter will be placed today. Clinically, he stable, without any major complaints today. The only new laboratory data today on this patient is a glucose of 85. Previous blood cultures, have shown ESBL Escherichia coli. For that, he is on ertapenem. Objective - Vital Signs Vital signs: Vital Signs Temp 98 F 12/18/22 08:00 Pulse 55 L 12/18/22 08:00 Resp 10 L 12/18/22 08:00 BP 105/66 12/18/22 08:00 Pulse Ox 96 12/18/22 08:00 FiO2 94 12/18/22 07:34 Intake & Output 12/17/22 12/18/22 12/18/22 18:59 06:59 18:59 Intake Total 1050 220 Output Total 2125 1025 Balance -1075 -805 Weight 99.2 kg Intake: IV 200 220 Sodium Chloride 0.9% 1, 200 220 000 ml @ 20 mls/hr IV . Q24H [facility] Rx#:[id number] Oral 850 Output: Urine 2125 1025 Other: Voiding Method Indwelling Catheter Indwelling Catheter Indwelling Catheter ABP, PAP, CO, CI - Last Documented Arterial Blood Pressure 92/74 - Exam No acute distress, oriented 3. Currently on room air. No conversational dyspnea or use of accessory muscles. HEENT examination is grossly unremarkable. Neck supple. Full range of motion. No adenopathy thyromegaly or neck vein distention. Cardiovascular examination reveals regular rhythm rate. S1-S2 normal. No S3 or S4. No discernible murmur noted. Heart rate 55 bpm. Heart sounds are distant. Lungs reveal clear breath sounds. Breath sounds are equal bilaterally. No adventitious lung sounds including wheezes rhonchi or crackles. Room air sat uration is 96 %. Abdomen soft bowel sounds are heard. No masses or tenderness. Extremities are intact. No cyanosis clubbing or edema. Swelling is noted to the right upper extremity. Skin is without rash or lesion. Neurologic examination is brief but nonfocal. - Labs CBC & Chem 7: 12/17/22 03:58 12/17/22 03:58 Labs: Abnormal Lab Results - Last 24 Hours (Table) 12/17/22 Range/Units 20:35 POC Glucose (mg/dL) 138 H (70-110) mg/dL Microbiology - Last 24 Hours (Table) 12/16/22 04:27 Blood Culture - Preliminary Blood Assessment and Plan Assessment: Septic shock secondary to urosepsis, secondary to ESBL Escherichia coli. Acute non-anion gap metabolic acidosis. Acute lactic acidosis. Sepsis induced thrombocytopenia. Hypothyroidism. History of Parkinson's disease. History of diabetic neuropathy. History of Guillain-Jefferson syndrome. Acute metabolic encephalopathy. Plan: Plan dated 12/16/2022. We will check a cortisol level, and TSH. The patient has been intermittently hypotensive. In addition, we'll discontinue the Flomax. The patient will have a right upper extremity Doppler, to rule out DVT. In addition, underlying catheter will be placed for IV antibiotics. Patient is currently getting no supplemental oxygen. The patient is getting saline at 100 mL an hour. Addit ional recommendations. We will continue to follow the patient make recommendations along the way. The patient's overall prognosis is very guarded. Plan dated 12/17/2022. The patient's right upper extremity Doppler, was negative for deep vein thrombosis. The patient continues on antibiotics in the form of ertapenem, for the ESBL Escherichia coli. We will continue to follow the patient, and make recommendations along the way. Labs, x-rays, medications are reviewed. Currently, the patient's on room air. The patient's IV of saline at 100 mL an hour, can be discontinued. Patient's eating well. No additional recommendations are made. Prognosis is guarded. Plan dated 12/18/2022. The patient is seen today in room 254. He had stable overnight according to the nurse. Labs, x-rays, and medications are reviewed. The patient is currently on ertapenem. A midline catheter will be placed today. The patient is being treated for ESBL Escherichia coli. No additional recommendations are made. The patient's hemodynamic status is stable, as is his respiratory status. Time with Patient: Less than 30
[2022-12-18 12:13] LABS: Glucose,Whole Blood 156 mg/dL (70-110)
[2022-12-18 16:45] LABS: Glucose,Whole Blood 100 mg/dL (70-110)
[2022-12-18] MEDS: ERTAPENEM 1 GM in SODIUM CHLORIDE 0.9% 50 ML IVPB SCH (19:56)
[2022-12-18 20:04] LABS: Glucose,Whole Blood 147 mg/dL (70-110)
[2022-12-18] MEDS: PANTOPRAZOLE 40 MG TABLET PO SCH (21:34)
[2022-12-19 05:55] VITALS: RESP 14
--- NOTE | 2022-12-19 06:41 | P.PN ---
Subjective Progress Note Date: 12/18/22 Patient is a 72-year-old male came in with meant complains of altered mental status patient does have history of Parkinson's but as per the nursing staff patient doesn't have any history of dementia. Patient had a low-grade temperature along mild neutropenia and significant abnormal urine, normal chest x-ray did patient denied any complaints of cough dysuria increased urinary frequency or urgency. Patient is alert and oriented 1-2 had history of ESBL E. coli and patient is admitted for septic shock secondary to urinary tract infection and patient is an not a problem at this time. Patient had lactic acidosis with highly elevated lactate and patient is presently on pressor support. 12/13/2022 Patient is seen and evaluated in follow-up in the ICU with infectious disease in pulmonary creative services writer following closely. Patient continues on pressor support of Levophed and vasopressin has been discontinued. Patient continues on IV antibiotics and preliminary cultures along with blood culture showing gram- negative bacilli. Sodium bicarb is being discontinued and patient is continued on IV hydration. Patient's mentation is improving although patient continues to feel extremely lethargic and fatigues easily. Patient is able to answer questions appropriately. 12/14/2022 Patient is in the MICU. Currently laying in the bed. Awake alert and oriented x3. Seems to be weak and lethargic. On oxygen at 2 L via nasal cannula. Patient is requiring pressor support with Levophed. Continued on Invanz for ESBL urinary tract infection. Patient has been afebrile. Denies any nausea or vomiting. No cough or sputum production. Laboratory data showed WBC 17.1 hemoglobin 12.4 and platelets 75 Sodium 139 potassium 3.4 chloride 109 bicarb is 25 BUN 16 and creatinine 0.76 and blood sugar is 111 and magnesium 2.0 12/15/2022 Patient is in the MICU. Able to sit in the chair at bedside. Awake alert and oriented x3. No complaints of chest pain or shortness of breath. Remains on Levophed which is being tapered off slowly. Patient is being continued on Invanz for ESBL urinary tract infection/septic shock. Laboratory data showed WBC improved to 11.9 hemoglobin 12.6 and platelets 75, sodium 138 potassium 3.9 chloride 101 bicarb is 20 BUN 16 and creatinine 0.67 and phosphorus 2.4 today. 12/16/2022 Patient is seen in follow-up continues to be in the ICU with intermittent low blood pressures currently off pressor support. Patient is maintained on IV Invanz with infectious disease following along with pulmonary creative services writer. Patient having some right upper extremity pain and swelling and Doppler is ordered and pending at this time. Patient will also require IV antibiotics outpatient and is scheduled to receive a midline. Patient is currently afebrile with no reports of chest pain or shortness of breath. Patient is extremely lethargic although arousable and fatigues easily. Patient will need extensive PT/OT therapy and rehab on discharge awaiting PT/OT therapy evaluation and will discuss further with case management/social work on discharge planning. 12/17/2022 Patient is seen and evaluated in follow-up today continues to be closely monitored in the ICU and has been downgraded although awaiting a bed on 3 S. Patient is maintained on antibiotics and most recent blood cultures have been negative for 24 hours. Infectious disease following and will plan for midline is patient will likely require IV antibiotics on discharge. Patient with significant weakness and social work following planning on ECF. Patient continues to report right upper extremity pain and Doppler showed an SVT and IV lines were removed from that site. Patient is extremely lethargic although arousable and able to stay awake longer during conversation. Patient is a poor historian and daughter helps. Patient is currently afebrile and white count within normal limits. Follow-up on repeat labs and replace electrolytes per protocol. Encouraged oral intake and recommended PT/OT therapy daily. 12/18/2022 Patient is seen in follow-up this morning continued in the ICU being considered for downgrade with the lapatinib held at this time. Patient is afebrile and labs reviewed within normal limits. Most recent blood cultures are negative and patient is maintained on antibiotics with infectious disease following. Plan is for midline and continued antibiotics and will need ECF on discharge. Social work following and arranging for ECF on discharge. Patient is more awake today and responsive and reports eating a little better. Review of systems: Constitutional: reports of fatigue, no fever, or chills Cardiovascular: No reports of chest pain or palpitations Respiratory: No reports of shortness of breath or cough GI: No reports of nausea, vomiting, or diarrhea, reports eating a little better today : No reports of dysuria or retention Neurovascular: reports of extreme weakness, right upper extremity pain PHYSICAL EXAMINATION: GENERAL: The patient is alert and oriented x2, more awake today and answering questions more appropriately today Obese HEENT: Pupils are round and equally reacting to light. EOMI. No scleral icterus. No conjunctival pallor. Normocephalic, atraumatic. No pharyngeal erythema. No thyromegaly. CARDIOVASCULAR: S1 and S2 muffled PULMONARY: Diminished breath sounds bilaterally with some scattered faint crackles noted. Weak inspiration ABDOMEN: Soft, nontender, nondistended, normoactive bowel sounds. No palpable organomegaly. MUSCULOSKELETAL: No joint swelling or deformity. EXTREMITIES: No cyanosis, clubbing, or pedal edema. Generalized edema noted of upper and lower extremities as well as face, right upper extremity showing some slight improvement on swelling NEUROLOGICAL: Limited exam SKIN: No rashes. Assessment: -Septic shock secondary to urinary tract infection patient is on ertapenem because of his history of ESBL E. coli. -Type 2 diabetes mellitus -History of Parkinson's disease -Anion gap metabolic acidosis secondary to lactic acidosis -Non-anion gap metabolic acidosis secondary to hyperchloremia -Chronic hypomagnesemia and hypokalemia, improved. -Diabetic peripheral neuropathy -GI prophylaxis -Generalized weakness -DVT prophylaxis: Subcutaneous heparin -Obesity with BMI of 32.1 -Full code Plan: Patient continues in the ICU and has been downgraded awaiting a 3 S. awaiting a bed at this time Pulmonary creative services writer along with infectious disease following closely and patient is maintained on Invanz. Blood culture sent urine cultures drawn on 12/11/2022 showing E. coli. Repeat blood cultures thus far are negative. previous blood cultures showing E. coli. Patient has significant history of ESBL E. coli in the past Continue to monitor Accu-Cheks before meals and at bedtime and treat with slid ing scale Patient continued on IV hydration. Encouraged oral intake Patient is to receive a midline and arranging for outpatient antibiotics at [facility] Recommend PT/OT therapy daily Overall prognosis remains guarded at this time The impression and plan of care has been dictated by Gregoria Caro, Nurse Practitioner as directed. Dr. Librado MD I have performed a history and examination and MDM of this patient, discussed the same with the dictator, and agree with the dictator's assessment and plan as written ,documented as a scribe. Based on total visit time, I have performed more than 50% of the visit. Objective - Vital Signs Vital signs: Vital Signs Temp 98.2 F 12/19/22 02:00 Pulse 64 12/19/22 02:00 Resp 14 12/19/22 02:00 BP 113/71 12/19/22 02:00 Pulse Ox 93 L 12/19/22 02:00 FiO2 94 12/18/22 07:34 Intake & Output 12/18/22 12/18/22 12/19/22 06:59 18:59 06:59 Intake Total 220 1040 Output Total 1025 1500 Balance -805 -460 Weight 99.2 kg Intake: IV 220 240 Sodium Chloride 0.9% 1, 220 240 000 ml @ 20 mls/hr IV . Q24H [facility] Rx#:[id number] Tube Feeding 800 Output: Urine 1025 1500 Other: Voiding Method Indwelling Catheter Indwelling Catheter Indwelling Catheter ABP, PAP, CO, CI - Last Documented Arterial Blood Pressure 92/74 - Labs CBC & Chem 7: 12/17/22 03:58 12/17/22 03:58 Labs: Abnormal Lab Results - Last 24 Hours (Table) 12/18/22 12/18/22 Range/Units 12:12 20:03 POC Glucose (mg/dL) 156 H 147 H (70-110) mg/dL Microbiology - Last 24 Hours (Table) 12/16/22 04:27 Blood Culture - Preliminary Blood
[2022-12-19 06:49] LABS: Glucose,Whole Blood 99 mg/dL (70-110)
[2022-12-19] MEDS: INSULIN ASPART (NovoLOG) 100 UNIT/ML VIAL SQ SCH ×3 (06:52→17:56)
[2022-12-19] MEDS: LEVOTHYROXINE 75 MCG TAB PO SCH (06:53)
[2022-12-19] MEDS: HEPARIN SODIUM,PORCINE 5,000 UNIT/ML 1 ML VIAL SQ SCH ×3 (06:53→17:55)
[2022-12-19] MEDS: MAGNESIUM OXIDE 400 MG TAB PO SCH (08:07)
[2022-12-19] MEDS: PREGABALIN 75 MG CAP PO SCH ×2 (08:07→17:55)
[2022-12-19] MEDS: ASPIRIN 81 MG PO SCH (08:07)
[2022-12-19] MEDS: SODIUM CHLORIDE 0.9% 1,000 ML IV SCH (08:08)
[2022-12-19] MEDS: CARBIDOPA-LEVODOPA 25-100 MG 1 EACH TAB PO SCH ×2 (08:11→17:59)
[2022-12-19 11:33] LABS: Glucose,Whole Blood 99 mg/dL (70-110)
--- NOTE | 2022-12-19 11:40 | P.PN ---
Subjective Progress Note Date: 12/19/22 Principal diagnosis: Sepsis, urinary tract infection. I am seeing this patient in new consultation today 12/12/2022 in the emergency room for urosepsis and septic shock requiring vasopressors and admission to the intensive care unit. Patient is a 72-year-old white male with past medical history significant for frequent urinary tract infections and previous ESBL producing organisms, diabetes mellitus, hypothyroidism, Gullian Abb[place] syndrome, and Parkinson's disease. Patient is currently confused and a poor historian. He has had multiple previous hospital admissions for UTIs and urosepsis. Patient came into the hospital late last night with the chief complaints of confusion and fevers. Urinalysis was consistent with urinary tract infection. CBC on arrival showed a WBC count of 3.7, hemoglobin 318.4, hematocrit 39.9, platelets 103. Initial CMP done in the emergency room showed a sodium 118, potassium 3, chloride 92, serum bicarb 14, BUN 17, creatinine 0.66, glucose 102. Patient's sodium was felt to be dilutional per emergency room physician. Repeat sodium 1 hour later was 140. normal saline is currently infusing at 130 ml/hr. Patient is currently lying in bed, on 2 L per nasal cannula, in no acute distress. Chest x-ray on arrival showed no acute cardiopulmonary process. T- max was 99.8F. Patient has been started empirically on ertapenem due to previo us ESBL producing E. coli, and an infectious disease consult has been placed. Patient's blood pressure is hypotensive despite several normal saline boluses. Patient ultimately required vasopressor support in the form of norepinephrine which is currently infusing at 0.17 mcg/kg/m. Lactic acid level on arrival was 5.3 and is down to 5.2. Blood and urine cultures are pending. Patient will be admitted to the intensive care unit once bed available. Patient was reevaluated today on , remains in the ICU, still requiring vasopressin and norepinephrine his blood cultures and urine cultures are positive for gram-negative bacilli, strongly suspect ESBL/E. coli. Patient remains on Invanz clinically feeling better mentation is improving his vasopressin was at 0.04 and I have discontinued vasopressin To him on norepinephrine at 0.26 plan to taper that down further and possibly discontinue in the meantime remains on IV fluid at 1 50 mL per hour and I have discontinued his bicarb drip as his acidosis has corrected nicely. Patient is still on 2 L nasal cannula not in distress. WBC count is improving down to 25.4 hemoglobin is 13.2, basic metabolic profile and renal profile are normal Patient was reevaluated today on 12/14/2022, remains you, on 2 L nasal cannula. Patient is being treated for urosepsis and ESBL producing E. coli noted in the urine and in the blood. Patient is still requiring norepinephrine at 0.07 mcg/kg/m his IV fluid is at 1 50 mL per hour patient is generally weak otherwise he is asymptomatic. Remains on 2 L nasal cannula. And not in distress. Amy ins on Invanz for ESBL/E. coli. WBC count today is 17.1, significantly improved compared to the last 2 days. Electrolytes are normal renal profile is normal Reevaluated today on 12/15/2022 patient remains in the ICU still requiring pressors/norepinephrine at 0.07 mcg/kg/m. Clinically the patient is feeling better, nonetheless he has extensive urosepsis and septic shock. Today I'm recommending more fluids to be given and hopefully we could taper down and discontinued his norepinephrine. Patient is treating for ESBL producing E. coli and he is on Invanz. Pulmonary-tony the patient is on room air previous x-ray on admission showed mostly atelectasis at the bases. WBC count today is 11.9 hemoglobin is 12.6 basic metabolic profile is normal and renal profile is normal Progress note dated 12/16/2022. The patient was admitted on December 11, and came to the intensive care unit, on the same day. He is seen in room 254. The patient's resting comfortably, on room air. The patient's getting saline at 100 mL an hour. Urinalysis revealed evidence of extended spectrum beta-lactamase producing Escherichia coli. For that reason, the patient is on ertapenem. In addition, because of concerns of ongoing hypotension, and the need for norepinephrine, we'll check a cortisol level, TSH. In addition I've asked the nurse to discontinue the Flomax which may contribute to the patient's hypotension. In addition, we'll place a midline, as per the recommendations of infectious diseases. Finally, because of right upper extremity swelling, the patient will have a Doppler. White count is 7, hemoglobin 12.2, hematocrit 37.9, with a platelet count of 79,000. Sodium 136, potassium 3.6, chlorides 111, CO2 20, BUN 13, creatinine 0.72. Cortisol level was a bit low at 11. TSH is normal at 2.980. No evidence of DVT of the right upper extremity. There is superficial venous thrombosis of the right cephalic vein, extending into the lower arm. Progress note dated 12/17/2022. 72-year-old male seen today in room 254. Currently, he's on room air. He's getting saline at 100 mL an hour. He's been treated with ertapenem, her extended spectrum beta lactamase producing E. coli, both in the blood and urine. Clinically, the patient appears to be doing reasonably well. Today's white c ount is 4.7, hemoglobin 12.4, hematocrit 36.2, with a platelet count of 93,000. Sodium 136, potassium 3.6, chlorides 109, CO2 22, E1 11, creatinine 0.73. Albumin is 2.2. Progress note dated 12/18/2022. 72-year-old male seen today in room 254, intensive care unit. He is currently on room air. Is getting saline at 20 mL an hour. An midline catheter will be placed today. Clinically, he stable, without any major complaints today. Progress note dated 12/19/2022. The patient is seen again today in room 254. The patient is currently on room air. The patient is getting saline at KVO. The patient continues on ertapenem, for his ESBL E. coli infection. The patient appears to be stable from the hemodynamic standpoint, and respiratory standpoint. In our opinion, the patient could be considered for transfer or discharge. Glucose today is 99. Objective - Vital Signs Vital signs: Vital Signs Temp 98.2 F 12/19/22 02:00 Pulse 64 12/19/22 02:00 Resp 14 12/19/22 02:00 BP 113/71 12/19/22 02:00 Pulse Ox 93 L 12/19/22 02:00 FiO2 94 12/18/22 07:34 Intake & Output 12/18/22 12/19/22 12/19/22 18:59 06:59 18:59 Intake Total 1040 240 Output Total 1500 650 Balance -460 -410 Weight 99.2 kg Intake: IV 240 240 Sodium Chloride 0.9% 1, 240 240 000 ml @ 20 mls/hr IV . Q24H [facility] Rx#:[id number] Tube Feeding 800 Output: Urine 1500 650 Other: Voiding Method Indwelling Catheter Indwelling Catheter ABP, PAP, CO, CI - Last Documented Arterial Blood Pressure 92/74 - Exam No acute distress, oriented 3. Currently on room air. No conversational dyspnea or use of accessory muscles. HEENT examination is grossly unremarkable. Neck supple. Full range of motion. No adenopathy thyromegaly or neck vein distention. Cardiovascular examination reveals regular rhythm rate. S1-S2 normal. No S3 or S4. No discernible murmur noted. Heart rate 64 bpm. Heart sounds are distant. Lungs reveal clear breath sounds. Breath sounds are equal bilaterally. No adventitious lung sounds including wheezes rhonchi or crackles. Room air saturation is 93 %. Abdomen soft bowel sounds are heard. No masses or tenderness. Extremities are intact. No cyanosis clubbing or edema. Swelling is noted to the right upper extremity. Skin is without rash or lesion. Neurologic examination is brief but nonfocal. - Labs CBC & Chem 7: 12/17/22 03:58 12/17/22 03:58 Labs: Abnormal Lab Results - Last 24 Hours (Table) 12/18/22 12/18/22 Range/Units 12:12 20:03 POC Glucose (mg/dL) 156 H 147 H (70-110) mg/dL Microbiology - Last 24 Hours (Table) 12/16/22 04:27 Blood Culture - Preliminary Blood Assessment and Plan Assessment: Septic shock secondary to urosepsis, secondary to ESBL Escherichia coli. Acute non-anion gap metabolic acidosis. Acute lactic acidosis. Sepsis induced thrombocytopenia. Hypothyroidism. History of Parkinson's disease. History of diabetic neuropathy. History of Guillain-Abbeville syndrome. Acute metabolic encephalopathy. Plan: Plan dated 12/16/2022. We will check a cortisol level, and TSH. The patient has been intermittently hypotensive. In addition, we'll discontinue the Flomax. The patient will have a right upper extremity Doppler, to rule out DVT. In addition, underlying catheter will be placed for IV antibiotics. Patient is currently getting no supplemental oxygen. The patient is getting saline at 100 mL an hour. Additional recommendations. We will continue to follow the patient make recommendations along the way. The patient's overall prognosis is very guarded. Plan dated 12/17/2022. The patient's right upper extremity Doppler, was negative for deep vein thrombosis. The patient continues on antibiotics in the form of ertapenem, for the ESBL Escherichia coli. We will continue to follow the patient, and make recommendations along the way. Labs, x-rays, medications are reviewed. Currently, the patient's on room air. The patient's IV of saline at 100 mL an hour, can be discontinued. Patient's eating well. No additional recommendati ons are made. Prognosis is guarded. Plan dated 12/18/2022. The patient is seen today in room 254. He had stable overnight according to the nurse. Labs, x-rays, and medications are reviewed. The patient is currently on ertapenem. A midline catheter will be placed today. The patient is being t reated for ESBL Escherichia coli. No additional recommendations are made. The patient's hemodynamic status is stable, as is his respiratory status. Plan dated 12/19/2022. The patient is again seen today in room 254. He is currently on room air. He is on saline at keep vein open. He continues on her ertapenem for his ESBL Escherichia coli infection. He denies any respiratory difficulty including shortness of breath, cough, wheezing, chest tightness, or phlegm production. He also denies any chest pain or chest discomfort. Labs, x-rays, and medications are reviewed. We will continue to follow the patient and make recommendations along the way. Prognosis is guarded. Time with Patient: Less than 30
[2022-12-19 15:32] VITALS: BP 96/58; PULSE 58; TEMP 98
--- NOTE | 2022-12-19 15:32 | P.DS ---
Providers Date of admission: 12/11/22 22:43 Expected date of discharge: 12/19/22 Attending physician: Tonya Ramirez Consults: 12/11/22 22:40 Consult Physician Routine Consulting Provider: French Muro Consult Reason/Comments: UTI sepsis Do you want consulting provider notified?: Yes 12/12/22 00:37 Consult Physician Urgent Consulting Provider: Chalino Lora Consult Reason/Comments: septic shock, urosepsis Do you want consulting provider notified?: Yes Primary care physician: [facility] Course: Final diagnosis -Septic shock secondary to urinary tract infection, present on admission ESBL E. coli. -Type 2 diabetes mellitus -History of Parkinson's disease -Anion gap metabolic acidosis secondary to lactic acidosis -Non-anion gap metabolic acidosis secondary to hyperchloremia -Chronic hypomagnesemia and hypokalemia, improved. -Diabetic peripheral neuropathy -GI prophylaxis -Generalized weakness -DVT prophylaxis: Subcutaneous heparin -Obesity with BMI of 32.1 -Full code Discharge disposition Patient is being discharged in a stable condition with guarded prognosis to [facility]. Patient will follow-up with Dr. Pennington in the outpatient setting upon discharge. Patient is to continue with IV antibiotics in the form of Invanz daily for 2 weeks and close outpatient follow-up with infectious disease as scheduled. Total time taken is greater than 35 minutes. Hospital course This is a 72-year-old male who was recently admitted with urinary tract infection with positive blood cultures and cultures finalizing showing E. coli with ESBL. Most recent blood cultures have finalized and have been negative. Patient maintained on Invanz and per ID recommendations will continue with a midline and Invanz daily for the next 2 weeks. Close outpatient follow-up in the outpatient setting as well. Patient with significant weakness will need rehab and will be going to [facility]. Patient had been in the ICU for sepsis requiring pressor support. Patient has been maintained on pressor support and kidney functions have normalized. Patient is a diabetic and would recommend Accu-Cheks before meals and at bedtime and 2 AM as blood sugars have been on the lower side. Encouraged oral intake and continue with regular diet. Ensure supplements 3 times a day between meals as well. Please refer to other consultation notes for further HPI. Currently no reports of chest pain, shortness of breath, or palpitations. Patient is afebrile. No reports of nausea or vomiting and patient is tolerating diet. Patient will be going to [facility] once a midline has been obtained. Guarded prognosis and high risk for readmissions given patient's significant comorbidities and clinical decline. Physical exam: Gen: This is a 72-year-old male who is awake, alert and oriented 2-3, elderly- appearing, well-developed, obese HEENT: Head is atraumatic, normocephalic. Pupils equal, round. Sclerae is anicteric. NECK: Supple. No JVD. No lymphadenopathy. No thyromegaly. LUNGS: Diminished breath sounds bilaterally with no wheezes or rhonchi. No intercostal retractions. HEART: Regular rate and rhythm. No murmur. ABDOMEN: Soft. Obese. Bowel sounds are present. No masses. No tenderness. EXTREMITIES: No pedal edema. No calf tenderness. Right upper extremity swelling and tenderness on palpation NEUROLOGICAL: Patient is awake, alert and oriented x2-3. Cranial nerves 2 through 12 are grossly intact. Diffusely weak Please refer to medication reconciliation sheet for a list of medications. The impression and plan of care has been dictated by Gregoria Caro, Nurse Practitioner as directed. Dr. Luis MD I have performed a history and examination and MDM of this patient, discussed the same with the dictator, and agree with the dictator's assessment and plan as written ,documented as a scribe. Based on total visit time, I have performed more than 50% of the visit. Patient Condition at Discharge: Fair Plan - Discharge Summary New Discharge Prescriptions: New Heparin Sodium,Porcine (1 ml) [Heparin Sodium] 5,000 unit SQ Q8HR each Ertapenem [INVanz] 1 gm IVPB Q24H 14 Days #14 each Acetaminophen Tab [Tylenol] 650 mg PO Q6HR PRN tab PRN Reason: Mild Pain Or Fever > 100.5 Continue Tamsulosin HCl [Flomax] 0.4 mg PO DAILY Ascorbic Acid [Vitamin C] 1,000 mg PO DAILY tab Cranberry 450mg 450 mg PO DAILY Glucosam/Jamar-Msm1/C/Yonas/Bosw [Vasdegycvbj-Glbknbxowkw-MBG Tb] 1 tab PO BID Fish Oil/Dha/Epa [Fish Oil 1,200 mg Fish Oil] 1 cap PO BID Magnesium 250 mg PO DAILY Aspirin EC [Ecotrin Low Dose] 81 mg PO DAILY Levothyroxine Sodium [Synthroid] 150 mcg PO DAILY Carbidopa-Levodopa 25-100 mg [Sinemet 25-100 mg] 2 tab PO TID Empagliflozin [Jardiance] 10 mg PO DAILY Elderberry Fruit [Elderberry] 350 mg PO DAILY Cyanocobalamin [Vitamin B-12] 500 mcg PO DAILY Cholecalciferol [Vitamin D3 (25 Mcg = 1000 Iu)] 50 mcg PO DAILY Omeprazole 40 mg PO HS Loratadine [Claritin] 20 mg PO DAILY PRN PRN Reason: Allergy Symptoms Pregabalin [Lyrica] 150 mg PO TID #6 cap Discontinued Melatonin 10 mg PO HS Discharge Medication List Aspirin EC [Ecotrin Low Dose] 81 mg PO DAILY 10/01/20 [History] Carbidopa-Levodopa 25-100 mg [Sinemet 25-100 mg] 2 tab PO TID 10/01/20 [History] Levothyroxine Sodium [Synthroid] 150 mcg PO DAILY 10/01/20 [History] Tamsulosin HCl [Flomax] 0.4 mg PO DAILY 10/01/20 [History] Ascorbic Acid [Vitamin C] 1,000 mg PO DAILY tab 04/03/21 [Rx] Cholecalciferol [Vitamin D3 (25 Mcg = 1000 Iu)] 50 mcg PO DAILY 07/23/22 [History] Cranberry 450mg 450 mg PO DAILY 07/23/22 [History] Cyanocobalamin [Vitamin B-12] 500 mcg PO DAILY 07/23/22 [History] Elderberry Fruit [Elderberry] 350 mg PO DAILY 07/23/22 [History] Empagliflozin [Jardiance] 10 mg PO DAILY 07/23/22 [History] Fish Oil/Dha/Epa [Fish Oil 1,200 mg Fish Oil] 1 cap PO BID 07/23/22 [History] Glucosam/Jamar-Msm1/C/Yonas/Bosw [Upnvxwrqlce-Fjjzrjrjcze-AAP Tb] 1 tab PO BID 07/23/22 [History] Omeprazole 40 mg PO HS 07/23/22 [History] Loratadine [Claritin] 20 mg PO DAILY PRN 12/11/22 [History] Magnesium 250 mg PO DAILY 12/11/22 [History] Acetaminophen Tab [Tylenol] 650 mg PO Q6HR PRN tab 12/19/22 [Rx] Ertapenem [INVanz] 1 gm IVPB Q24H 14 Days #14 each 12/19/22 [Rx] Heparin Sodium,Porcine (1 ml) [Heparin Sodium] 5,000 unit SQ Q8HR each 12/19/22 [Rx] Pregabalin [Lyrica] 150 mg PO TID #6 cap 12/19/22 [Rx] Follow up Appointment(s)/Referral(s): Guru Pennington MD [Primary Care Provider] - 1-2 days Activity/Diet/Wound Care/Special Instructions: Patient is going to [facility] Activity as tolerated Patient receive a midline and continue with IV Invanz daily for the next 2 weeks Continue indwelling Gerardo catheter and Gerardo care Aspiration precautions with head of the bed elevated 30-45 at all times Continue regular diet Continue ensure supplements, patient likes strawberry 3 times a day with meals Patient to continue on subcu heparin Patient did have a superficial vein thrombosis of the right upper extremity with some swelling and recommend continue elevating right upper extremity on pillows Patient follow-up with primary care provider on discharge Discharge Disposition: TRANSFER TO SNF/ECF
--- NOTE | 2022-12-19 15:43 | P.PN ---
Subjective Progress Note Date: 12/18/22 Principal diagnosis: Sepsis, UTI and bacteremia Patient is a 72-year-old male with a past medical history significant for diabetes mellitus, Guillain-Hoffman syndrome Parkinson disease frequent fall and history of recurrent UTI has been brought to the hospital for evaluation of fever and mental status changes, initially admitted to ICU because of hypertension. On today's evaluation that is 12/18/2022, the patient remains to be afebrile the patient is breathing comfortably on room air, the patient denies chest pain, shortness of breath or cough, patient denies nausea/vomiting , no diarrhea and no abdominal pain Patient did have white count of 4.7, creatinine 0.73 as of yesterday no lab work today, blood culture E.coli , urine with ESBL e.coli Objective - Vital Signs Vital signs: Vital Signs Temp 98 F 12/18/22 08:00 Pulse 55 L 12/18/22 08:00 Resp 10 L 12/18/22 08:00 BP 105/66 12/18/22 08:00 Pulse Ox 96 12/18/22 08:00 FiO2 94 12/18/22 07:34 Intake & Output 12/17/22 12/18/22 12/18/22 18:59 06:59 18:59 Intake Total 1050 220 Output Total 2125 1025 Balance -1075 -805 Weight 99.2 kg Intake: IV 200 220 Sodium Chloride 0.9% 1, 200 220 000 ml @ 20 mls/hr IV . Q24H [facility] Rx#:[id number] Oral 850 Output: Urine 2125 1025 Other: Voiding Method Indwelling Catheter Indwelling Catheter Indwelling Catheter ABP, PAP, CO, CI - Last Documented Arterial Blood Pressure 92/74 - Exam GENERAL DESCRIPTION: An elderly male lying in bed in no distress RESPIRATORY SYSTEM: Unlabored breathing , decreased breath sounds at bases HEART: S1 S2 regular rate and rhythm , ABDOMEN: Soft , no tenderness EXTREMITIES: No edema feet - Labs CBC & Chem 7: 12/17/22 03:58 12/17/22 03:58 Labs: Abnormal Lab Results - Last 24 Hours (Table) 12/17/22 12/18/22 Range/Units 20:35 12:12 POC Glucose (mg/dL) 138 H 156 H (70-110) mg/dL Microbiology - Last 24 Hours (Table) 12/16/22 04:27 Blood Culture - Preliminary Blood Assessment and Plan (1) Gram-negative bacteremia Current Visit: Yes Status: Acute Code(s): R78.81 - BACTEREMIA SNOMED Code(s): 532842520706 (2) Sepsis Current Visit: Yes Status: Acute Code(s): A41.9 - SEPSIS, UNSPECIFIED ORGANISM SNOMED Code(s): 66891435 (3) UTI (urinary tract infection) Current Visit: Yes Status: Acute Code(s): N39.0 - URINARY TRACT INFECTION, SITE NOT SPECIFIED SNOMED Code(s): 29605169 Plan: 1patient presented to hospital with sepsis in this patient with a fever tachycardia elevated white count source is likely urinary in this patient who do have a history of recurrent UTI with a positive UA and history of ESBL E. coli we will need to cover for resistant gram-negative while waiting for the culture to finalize 2- ultrasound of the kidney bladder with no evidence of any structural abnormality or obstructive uropathy 3-patient afebrile and white count has normalized, 4- patient has shown clinical improvement and will continue with Invanz 1 g daily to finish a two-week course of therapy Dictation was produced using [employer] dictation software. please excuse any grammatical, word or spelling errors. Time with Patient: Less than 30
--- NOTE | 2022-12-19 15:44 | P.PN ---
Subjective Progress Note Date: 12/19/22 Principal diagnosis: Sepsis, UTI and bacteremia Patient is a 72-year-old male with a past medical history significant for diabetes mellitus, Guillain-Hoffman syndrome Parkinson disease frequent fall and history of recurrent UTI has been brought to the hospital for evaluation of fever and mental status changes, initially admitted to ICU because of hypertension. On today's evaluation that is 12/19/2022, the patient denies any fever or any chills, the patient is breathing comfortably on room air and no need for supplemental oxygen , the patient denies chest pain or cough, patient denies abdominal pain, no nausea/vomiting and no diarrhea has been reported Patient did have white count of 4.7, creatinine 0.73 as of 12/17/2022 no lab draw today, blood culture E.coli , urine with ESBL e.coli Objective - Vital Signs Vital signs: Vital Signs Temp 98.2 F 12/19/22 02:00 Pulse 64 12/19/22 02:00 Resp 14 12/19/22 02:00 BP 113/71 12/19/22 02:00 Pulse Ox 93 L 12/19/22 02:00 FiO2 94 12/18/22 07:34 Intake & Output 12/18/22 12/19/22 12/19/22 18:59 06:59 18:59 Intake Total 1040 240 Output Total 1500 650 Balance -460 -410 Weight 99.2 kg Intake: IV 240 240 Sodium Chloride 0.9% 1, 240 240 000 ml @ 20 mls/hr IV . Q24H [facility] Rx#:[id number] Tube Feeding 800 Output: Urine 1500 650 Other: Voiding Method Indwelling Catheter Indwelling Catheter ABP, PAP, CO, CI - Last Documented Arterial Blood Pressure 92/74 - Exam GENERAL DESCRIPTION: An elderly male lying in bed in no distress RESPIRATORY SYSTEM: Unlabored breathing , decreased breath sounds at bases HEART: S1 S2 regular rate and rhythm , ABDOMEN: Soft , no tenderness EXTREMITIES: No edema feet - Labs CBC & Chem 7: 12/17/22 03:58 12/17/22 03:58 Labs: Abnormal Lab Results - Last 24 Hours (Table) 12/18/22 Range/Units 20:03 POC Glucose (mg/dL) 147 H (70-110) mg/dL Microbiology - Last 24 Hours (Table) 12/16/22 04:27 Blood Culture - Preliminary Blood Assessment and Plan (1) Gram-negative bacteremia Current Visit: Yes Status: Acute Code(s): R78.81 - BACTEREMIA SNOMED Code(s): 159714647554 (2) Sepsis Current Visit: Yes Status: Acute Code(s): A41.9 - SEPSIS, UNSPECIFIED ORGANISM SNOMED Code(s): 33598676 (3) UTI (urinary tract infection) Current Visit: Yes Status: Acute Code(s): N39.0 - URINARY TRACT INFECTION, SITE NOT SPECIFIED SNOMED Code(s): 97481021 Plan: 1patient presented to hospital with sepsis in this patient with a fever tachycardia elevated white count source is likely urinary in this patient who do have a history of recurrent UTI with a positive UA and history of ESBL E. coli we will need to cover for resistant gram-negative while waiting for the culture to finalize 2- ultrasound of the kidney bladder with no evidence of any structural abnormality or obstructive uropathy 3-patient afebrile and white count has normalized, 4-plan is to continue with Invanz 1 g daily to finish a two-week course of therapy and close outpatient follow-up discuss with the [employer]TER for admitting team working on discharge Dictation was produced using [employer] dictation software. please excuse any grammatical, word or spelling errors. Time with Patient: Less than 30
[2022-12-19 17:12] LABS: Glucose,Whole Blood 215 mg/dL (70-110)
[2022-12-19] MEDS: ERTAPENEM 1 GM in SODIUM CHLORIDE 0.9% 50 ML IVPB SCH (18:00)
[2022-12-19 19:59] LABS: Glucose,Whole Blood 144 mg/dL (70-110)
== END 2022-12-19 21:00 | DRG 871 ==
LOC: EC 18:43 → 3SCARD 22:43 → 2SICU 12-12 00:07
PROVIDERS: ADMIT Hospitalist; ATTEND Hospitalist
PROC: 06HY33Z Insertion of Infusion Device into Lower Vein, Percutaneous Approach (ICD-10-PCS; principal; 2022-12-11)
PROC: 3E043XZ Introduction of Vasopressor into Central Vein, Percutaneous Approach (ICD-10-PCS; principal; 2022-12-11)
PROC: 4A133B1 Monitoring of Arterial Pressure, Peripheral, Percutaneous Approach (ICD-10-PCS; 2022-12-12)
PROC: 4A133J1 Monitoring of Arterial Pulse, Peripheral, Percutaneous Approach (ICD-10-PCS; 2022-12-12)
PROC: 03HY32Z Insertion of Monitoring Device into Upper Artery, Percutaneous Approach (ICD-10-PCS; 2022-12-12)
PROC: 05HC33Z Insertion of Infusion Device into Left Basilic Vein, Percutaneous Approach (ICD-10-PCS; 2022-12-19)
DX: A41.51 Sepsis due to Escherichia coli [E. coli] (principal); G93.41 Metabolic encephalopathy; R65.21 Severe sepsis with septic shock; N39.0 Urinary tract infection, site not specified; G61.0 Guillain-Barre syndrome; E87.1 Hypo-osmolality and hyponatremia; Z16.12 Extended spectrum beta lactamase (ESBL) resistance; I82.611 Acute embolism and thrombosis of superficial veins of right upper extremity; E87.21 Acute metabolic acidosis; G20.A1 Parkinson's disease without dyskinesia, without mention of fluctuations; Z68.33 Body mass index [BMI] 33.0-33.9, adult; E87.6 Hypokalemia; D69.59 Other secondary thrombocytopenia; N40.0 Benign prostatic hyperplasia without lower urinary tract symptoms; E03.9 Hypothyroidism, unspecified; E87.8 Other disorders of electrolyte and fluid balance, not elsewhere classified; E83.42 Hypomagnesemia; E66.9 Obesity, unspecified; E11.42 Type 2 diabetes mellitus with diabetic polyneuropathy; D70.9 Neutropenia, unspecified; Z20.822 Contact with and (suspected) exposure to COVID-19; Z28.310 Unvaccinated for COVID-19; Z88.2 Allergy status to sulfonamides; Z87.440 Personal history of urinary (tract) infections; Z86.19 Personal history of other infectious and parasitic diseases; Z79.899 Other long term (current) drug therapy; Z79.890 Hormone replacement therapy; Z79.84 Long term (current) use of oral hypoglycemic drugs; Z79.82 Long term (current) use of aspirin
CPT/HCPCS: 36410; 36415; 71045; 76770; 76937; 80048; 80053; 81001; 82533; 82805; 83605; 83735; 84100; 84443; 85025; 85610; 85730; 87040; 87077; 87086; 87186; 87636; 93005; 94760; 96361; 96365; 96367; 96368; 99291

== ENCOUNTER 2023-01-01 11:19 | Emergency (ER) | payer MEDICARE, OTHER ==
[2023-01-01] MEDS ORDERED: ROCURONIUM 10 MG/ML (5 ML VIAL) IV STA (11:40)
[2023-01-01] MEDS ORDERED: ETOMIDATE 2 MG/ML 10 ML VIAL IVP STA (11:40)
[2023-01-01 11:47] LABS: Basophils # (A) 0.1 k/uL (0-0.2); Basophils % (A) 1 %; Eosinophils # (A) 0.1 k/uL (0-0.7); Eosinophils % (A) 1 %; HCT 44.8 % (39.0-53.0); HGB 14.5 gm/dL (13.0-17.5); Lymphocytes # (A) 3.9 k/uL (1.0-4.8); Lymphocytes % (A) 30 %; MCH 28.8 pg (25.0-35.0); MCHC 32.3 g/dL (31.0-37.0); MCV 89.2 fL (80.0-100.0); Mean Platelet Volume 8.9; Monocytes # (A) 1.1 k/uL (0-1.0); Monocytes % (A) 8 %; Neutrophils # (A) 7.7 k/uL (1.3-7.7); Neutrophils % (A) 58 %; RBC 5.02 m/uL (4.30-5.90); RDW 15.2 % (11.5-15.5); WBC 13.2 k/uL (3.8-10.6)
[2023-01-01 11:52] LABS: Platelet Count 252 k/uL (150-450)
[2023-01-01] MEDS ORDERED: NOREPINEPHRINE 32 MG in SODIUM CHLORIDE 0.9% 218 ML IV ONE (11:52)
[2023-01-01 11:58] LABS: Glucose,Whole Blood 184 mg/dL (70-110)
[2023-01-01 12:00] LABS: ALT 13 U/L (4-49); AST 26 U/L (17-59); African American GFR (CKD) >90 (>60 ml/min/1.73 sqM); Albumin 3.4 g/dL (3.5-5.0); Alkaline Phosphatase 88 U/L (38-126); Anion Gap 15 mmol/L; Blood Urea Nitrogen 18 mg/dL (9-20); Calcium 9.6 mg/dL (8.4-10.2); Carbon Dioxide 17 mmol/L (22-30); Chloride 106 mmol/L (98-107); Glucose 182 mg/dL (74-99); Non-African American GFR(CKD) 84 (>60 ml/min/1.73 sqM); Potassium 3.9 mmol/L (3.5-5.1); Sodium 138 mmol/L (137-145); Total Bilirubin 0.8 mg/dL (0.2-1.3)
--- NOTE | 2023-01-01 12:00 | XR ---
EXAMINATION TYPE: XR chest 1V portable DATE OF EXAM: 01/01/2023 11:53 AM COMPARISON: Chest radiographs from 12/11/2022 TECHNIQUE: XR chest 1V portable Portable AP radiograph of the chest. CLINICAL INDICATION:Male, 72 years old with history of sob; FINDINGS: Lungs/Pleura: There is no evidence of pleural effusion, focal consolidation, or pneumothorax. Pulmonary vascularity: Unremarkable. Heart/mediastinum: Cardiomediastinal silhouette is enlarged. Musculoskeletal: No acute osseous pathology. Other findings: None Lines/Tubes: Endotracheal tube is demonstrated extending into the right main bronchus. IMPRESSION: Endotracheal tube demonstrated extending into the right mainstem bronchus. Recommend retraction of ap proximately 4 to 5 cm. Findings called to the ER at time of dictation.
[2023-01-01] MEDS ORDERED: ALTEPLASE 100 MG in EMPTY BAG 1 BAG IV ONE (12:01)
[2023-01-01 12:08] LABS: NT-Pro-B-Type Natriuretic Pept 5770 pg/mL
[2023-01-01] MEDS ORDERED: ALTEPLASE IV ONE ×2 (12:08→12:15)
[2023-01-01 12:14] LABS: INR 1.1 (<1.2); Partial Thromboplastin Time 23.4 sec (22.0-30.0); Prothrombin Time 11.8 sec (10.0-12.5)
--- NOTE | 2023-01-01 13:25 | P.CRDCN ---
History of Present Illness History of present illness: HISTORY OF PRESENT ILLNESS: This is a 72-year-old male with a past medical history significant for diabetes, Parkinson's disease, and recent hospitalization secondary to sepsis secondary to urinary tract infection. The patient was discharged to [facility] on 12/19/2022. The patient does not follow with a premises technician and does not have any previous history of coronary artery disease. We have been asked to see the patient in consultation for STEMI. The patient was apparently going to a doctors appointment with his family and became unresponsive at his facility. The patient was brought to the hospital for further evaluation. According to the ER physician, the patient was alert and oriented when he initially presented to the hospital. He had no complaints of chest pain or shortness of breath. The patient then went unresponsive. He became bradycardic and then went into asystole. CPR was started. Patient did achieve ROSC and then lost his pulse again and CPR was once again started. The patients initial EKG revealed sinus mechanism with a right bundle branch block and Q waves inferiorly. Repeat EKG performed revealed anterior septal ST elevation. Patient was noted to be cyanotic from the nipple line up at the time of examination. Bedside ultrasound was performed with minimal contractility of the left ventricle. CPR was ongoing when cardiology team left the bedside. Dr. Austin, ER physician, still present. REVIEW OF SYSTEMS: Unable to obtain thorough review of systems secondary to patient unresponsive on mechanical ventilation PHYSICAL EXAM: VITAL SIGNS: Reviewed. GENERAL: Well-developed in no acute distress. HEENT: Head is normocephalic. Pupils are equal, round. Sclerae anicteric. Mucous membranes of the mouth are moist. Neck supple. No JVD or thyromegaly LUNGS: Respirations even and unlabored. Lungs essentially clear to auscultation bilaterally. HEART: Regular rate and rhythm. S1 and S2 heard. ABDOMEN: Soft. Nondistended. Nontender. EXTREMITIES: Normal range of motion. No clubbing or cyanosis. Peripheral pulses intact. No lower extremity edema NEUROLOGIC: Awake and alert. Oriented x 3. ASSESSMENT: Syncope Cardiopulmonary arrest with ongoing CPR, suspect secondary to PE ST elevation in anterior septal leads; suspect secondary to significant hypoxia Recent hospitalization for urosepsis History of Parkinson's disease History of diabetes PLAN: Dr. Valencia at the bedside in the ER. Patient with cardiac arrest and ongoing CPR. Patient with almost 20 minutes of CPR when cardiology team left the bedside in the ER. Patient with suspected PE and is to receive Alteplase per ER physician. He is not a candidate for any invasive procedures at this time. Patients prognosis remains poor. Nurse practitioner note has been reviewed by physician. Signing provider agrees with the documented findings, assessment, and plan of care. Past Medical History Past Medical History: Diabetes Mellitus Additional Past Medical History / Comment(s): Frequent UTIs, guillian-barre syndrome, parkinsons, rt. shoulder rotator cuff repair, lasic eye surgery, L4-L5 laporoscopy History of Any Multi-Drug Resistant Organisms: ESBL Date of last positivie culture/infection: 08/16/22 MDRO Source:: URINE Past Surgical History: Back Surgery Past Psychological History: No Psychological Hx Reported Smoking Status: Never smoker Past Alcohol Use History: None Reported Past Drug Use History: None Reported Medications and Allergies Home Medications Medication Instructions Recorded Confirmed Type Aspirin EC [Ecotrin Low Dose] 81 mg PO DAILY 10/01/20 12/11/22 History Carbidopa-Levodopa 25-100 mg 2 tab PO TID 10/01/20 12/11/22 History [Sinemet 25-100 mg] Levothyroxine Sodium [Synthroid] 150 mcg PO DAILY 10/01/20 12/11/22 History Tamsulosin HCl [Flomax] 0.4 mg PO DAILY 10/01/20 12/11/22 History Ascorbic Acid [Vitamin C] 1,000 mg PO DAILY tab 04/03/21 12/11/22 Rx Cholecalciferol [Vitamin D3 (25 50 mcg PO DAILY 07/23/22 12/11/22 History Mcg = 1000 Iu)] Cranberry 450mg 450 mg PO DAILY 07/23/22 12/11/22 History Cyanocobalamin [Vitamin B-12] 500 mcg PO DAILY 07/23/22 12/11/22 History Elderberry Fruit [Elderberry] 350 mg PO DAILY 07/23/22 12/11/22 History Empagliflozin [Jardiance] 10 mg PO DAILY 07/23/22 12/11/22 History Fish Oil/Dha/Epa [Fish Oil 1,200 1 cap PO BID 07/23/22 12/11/22 History mg Fish Oil] Glucosam/Jamar-Msm1/C/Yonas/Bosw 1 tab PO BID 07/23/22 12/11/22 History [Phmztcnnonm-Xjukymbsqwl-OOS Tb] Omeprazole 40 mg PO HS 07/23/22 12/11/22 History Loratadine [Claritin] 20 mg PO DAILY PRN 12/11/22 12/11/22 History Magnesium 250 mg PO DAILY 12/11/22 12/11/22 History Acetaminophen Tab [Tylenol] 650 mg PO Q6HR PRN tab 12/19/22 Rx Ertapenem [INVanz] 1 gm IVPB Q24H 14 Days #14 each 12/19/22 Rx Heparin Sodium,Porcine (1 ml) 5,000 unit SQ Q8HR each 12/19/22 Rx [Heparin Sodium] Melatonin 10 mg PO HS #10 tab 12/19/22 Rx Pregabalin [Lyrica] 150 mg PO TID #6 cap 12/19/22 Rx Allergies Allergy/AdvReac Type Severity Reaction Status Date / Time Sulfa (Sulfonamide Allergy Unknown Verified 12/11/22 21:07 Antibiotics) Physical Exam Vitals: Vital Signs Pulse Resp BP Pulse Ox 01/01/23 11:21 104 H 12 90/60 96 Intake and Output 12/31/22 01/01/23 01/01/23 22:59 06:59 14:59 Other: Weight 97.522 kg Results 01/01/23 11:35 01/01/23 11:35 Cardiac Enzymes 01/01/23 01/01/23 Range/Units 11:35 11:35 AST 26 (17-59) U/L Troponin I 0.118 H* (0.000-0.034) ng/mL Coagulation 01/01/23 Range/Units 11:35 PT 11.8 (10.0-12.5) sec APTT 23.4 (22.0-30.0) sec CBC 01/01/23 Range/Units 11:35 WBC 13.2 H (3.8-10.6) k/uL RBC 5.02 (4.30-5.90) m/uL Hgb 14.5 (13.0-17.5) gm/dL Hct 44.8 (39.0-53.0) % Plt Count 252 D (150-450) k/uL Comprehensive Metabolic Panel 01/01/23 Range/Units 11:35 Sodium 138 (137-145) mmol/L Potassium 3.9 (3.5-5.1) mmol/L Chloride 106 (98-107) mmol/L Carbon Dioxide 17 L (22-30) mmol/L BUN 18 (9-20) mg/dL Creatinine 0.92 (0.66-1.25) mg/dL Glucose 182 H (74-99) mg/dL Calcium 9.6 (8.4-10.2) mg/dL AST 26 (17-59) U/L ALT 13 (4-49) U/L Alkaline Phosphatase 88 (38-126) U/L Total Protein 7.0 (6.3-8.2) g/dL Albumin 3.4 L (3.5-5.0) g/dL Current Medications Generic Name Dose Route Start Last Admin Trade Name Freq PRN Reason Stop Dose Admin Norepinephrine Bitartrate 32 250 mls @ 1.371 mls/hr 01/01/23 11:52 01/01/23 11:59 mg/ Sodium Chloride IV 01/02/23 11:51 0.03 mcg/kg/min .Q24H ONE 1.371 mls/hr Administration Protocol 0.03 MCG/KG/MIN Intake and Output 12/31/22 01/01/23 01/01/23 22:59 06:59 14:59 Other: Weight 97.522 kg Patient Weight 01/02/23 06:59 Weight 97.522 kg 01/01/23 11:35 01/01/23 11:35
--- NOTE | 2023-01-01 13:56 | ED ---
Altered Mental Status HPI - General Chief Complaint: Altered Mental Status Stated Complaint: Unresponsive Time Seen by Provider: 01/01/23 11:20 Source: EMS Mode of arrival: EMS Limitations: no limitations - History of Present Illness Initial Comments: 72-year-old male with past medical history of diabetes, Guillian-barre, recent urosepsis who presents to the emergency department from [facility]. Patient is currently [place]. Daughter picked the patient up today to take him on a day trip. The patient was in the car when he went unresponsive. EMS was called and transported the patient to the emergency department. For them they state that he was alert and oriented and able to answer questions appropriately. They denied any distress and the patient had no complaints. Patient does present for facility and has purple discoloration in the face and neck. He does have an episode where he goes unresponsive and therefore he is placed promptly in trauma 1. Patient has approximately 5 seconds of unresponsiveness with a worsening purple discoloration of his head and neck. He then is alert and able to answer questions appropriately. There was no seizure- like activity or post ictal phase. He denies having any pain or shortness of breath. He denies fevers. Daughter does come to bedside as patient is not a reliable historian at this moment in time due. She states the patient wasn't having any symptoms. He was discharged from the hospital for a urinary tract infection with sepsis. He has a PICC in the left upper extremity. Remainder of HPI is limited because of the patient's current status - Related Data Home Medications Medication Instructions Recorded Confirmed Aspirin EC [Ecotrin Low Dose] 81 mg PO DAILY 10/01/20 12/11/22 Carbidopa-Levodopa 25-100 mg 2 tab PO TID 10/01/20 12/11/22 [Sinemet 25-100 mg] Levothyroxine Sodium [Synthroid] 150 mcg PO DAILY 10/01/20 12/11/22 Tamsulosin HCl [Flomax] 0.4 mg PO DAILY 10/01/20 12/11/22 Cholecalciferol [Vitamin D3 (25 50 mcg PO DAILY 07/23/22 12/11/22 Mcg = 1000 Iu)] Cranberry 450mg 450 mg PO DAILY 07/23/22 12/11/22 Cyanocobalamin [Vitamin B-12] 500 mcg PO DAILY 07/23/22 12/11/22 Elderberry Fruit [Elderberry] 350 mg PO DAILY 07/23/22 12/11/22 Empagliflozin [Jardiance] 10 mg PO DAILY 07/23/22 12/11/22 Fish Oil/Dha/Epa [Fish Oil 1,200 1 cap PO BID 07/23/22 12/11/22 mg Fish Oil] Glucosam/Jamar-Msm1/C/Yonas/Bosw 1 tab PO BID 07/23/22 12/11/22 [Ixpixnvobpu-Gxtcfpfodqw-OYD Tb] Omeprazole 40 mg PO HS 07/23/22 12/11/22 Loratadine [Claritin] 20 mg PO DAILY PRN 12/11/22 12/11/22 Magnesium 250 mg PO DAILY 12/11/22 12/11/22 Previous Rx's Medication Instructions Recorded Ascorbic Acid [Vitamin C] 1,000 mg PO DAILY tab 04/03/21 Acetaminophen Tab [Tylenol] 650 mg PO Q6HR PRN tab 12/19/22 Ertapenem [INVanz] 1 gm IVPB Q24H 14 Days #14 each 12/19/22 Heparin Sodium,Porcine (1 ml) 5,000 unit SQ Q8HR each 12/19/22 [Heparin Sodium] Melatonin 10 mg PO HS #10 tab 12/19/22 Pregabalin [Lyrica] 150 mg PO TID #6 cap 12/19/22 Allergies Allergy/AdvReac Type Severity Reaction Status Date / Time Sulfa (Sulfonamide Allergy Unknown Verified 12/11/22 21:07 Antibiotics) Review of Systems ROS Statement: Those systems with pertinent positive or pertinent negative responses have been documented in the HPI. ROS Other: All systems not noted in ROS Statement are negative. Past Medical History Past Medical History: Diabetes Mellitus Additional Past Medical History / Comment(s): Frequent UTIs, guillian-barre syndrome, parkinsons, rt. shoulder rotator cuff repair, lasic eye surgery, L4-L5 laporoscopy History of Any Multi-Drug Resistant Organisms: ESBL Date of last positivie culture/infection: 08/16/22 MDRO Source:: URINE Past Surgical History: Back Surgery Past Psychological History: No Psychological Hx Reported Smoking Status: Never smoker Past Alcohol Use History: None Reported Past Drug Use History: None Reported General Exam Limitations: altered mental status General appearance: alert, lethargic, in distress Head exam: Present: atraumatic, other (Significant purple discoloration to the head and neck) Course Vital Signs 01/01/23 01/01/23 11:21 19:02 Pulse Rate 104 H 0 L Respiratory 12 0 L Rate Blood Pressure 90/60 0/0 O2 Sat by Pulse 96 0 L Oximetry Procedures - Intubation Sedative: Etomidate Mg Given: 20 Paralytic: Rocuronium Mg Given: 50 Laryngoscope: fiber optic video scope Size: 4 ET Tube Size: 7.5 ET Tube Uncuffed: No Tube Secured Depth (cm): 23 Tube Secured Location: teeth Tube Placement Confirmation: visualized tube passing through cords, equal breath sounds bilaterally, no breath sounds over epigastrium, confirmation by capnometry Patient Tolerated Procedure: well, no complications Medical Decision Making - Medical Decision Making Was pt. sent in by a medical professional or institution (, PA, EVENT SPECIALIST PRODUCT DEMONSTRATOR, urgent care, hospital, or half-way...) When possible be specific @ -No Did you speak to anyone other than the patient for history (EMS, parent, family, police, friend...)? What history was obtained from this source @ -EMS Did you review nursing and triage notes (agree or disagree)? Why? @ -I reviewed and agree with nursing and triage notes Were old charts reviewed (outside hosp., previous admission, EMS record, old EKG, old radiological studies, urgent care reports/EKG's, half-way records)? Report findings @ -I reviewed patients chart from his recent discharge Differential Diagnosis (chest pain, altered mental status, abdominal pain women, abdominal pain men, vaginal bleeding, weakness, fever, dyspnea, syncope, headache, dizziness, GI bleed, back pain, seizure, CVA, palpatations, mental health, musculoskeletal)? @ -pe, STEMI, SVT syndrome, dissection EKG interpreted by me (3pts min.). @ -Completed at 11:30 demonstrates sinus rhythm with a rate of 108. ND interval 122. QRS 168. QTC of 459. Right bundle branch block. Significant b aseline artifact. AVR elevation possible. Some ST depression in 1 and aVL Repeated done and 1145 demonstrates sinus rhythm rate of 99. QRS 182. QTC of 413. Diffuse ST elevation V1 through the 4 with reciprocal depression in 1 and aVL X-rays interpreted by me (1pt min.). @ -yes, deep tube - retracted CT interpreted by me (1pt min.). @ -None done U/S interpreted by me (1pt. min.). @ -None done What testing was considered but not performed or refused? (CT, X-rays, U/S, labs)? Why? @ -CT - patient not stable to leave trauma bay What meds were considered but not given or refused? Why? @ -None Did you discuss the management of the patient with other professionals (professionals i.e. DrZhao, PA, EVENT SPECIALIST PRODUCT DEMONSTRATOR, lab, RT, psych nurse, neonatal social worker, punching machine operator, teacher, patient transport officer, case folder)? Give summary @ -Dr. Wharton - he presents to ED based off of stemi ekg Was smoking cessation discussed for >3mins.? @ -No Was critical care preformed (if so, how long)? @ -yes, 50 minutes Were there social determinants of health that impacted care today? How? (Homelessness, low income, unemployed, alcoholism, drug addiction, transportation, low edu. Level, literacy, decrease access to med. care, correction, rehab)? @ -patient in rehab Was there de-escalation of care discussed even if they declined (Discuss DNR or withdrawal of care, Hospice)? DNR status @ -yes, daughter would like all measures pursued. Patient NOT a DNR as listed on half-way paperwork What co-morbidities impacted this encounter? (DM, HTN, Smoking, COPD, CAD, Cancer, CVA, ARF, Chemo, Hep., AIDS, mental health diagnosis, sleep apnea, morbid obesity)? @ -parkinsons Was patient admitted / discharged? Hospital course, mention meds given and route, prescriptions, significant lab abnormalities, going to OR and other pertinent info. @ -upon arrival, patient placed into trauma one. He is listed as DNR. EKG completed. Family brought back immediately and states patient is a full code. Patient has agonal respirations and is intubated. Shortly after intubation, patient bradys down and codes. CPR started. He does have return of pulses. EKG obtained and demonstrates stemi changes. stemi called. Dr. wharton presents to ED. Chest and pelvis xray performed. Patient does code again. Please see code log. I discussed tpa with the daughter as I am concerned for pe. Daughter agreeable to trying the medication. CPR continued for 20 minutes without ROCS. Time of called. questioned documents examiner notified. Patient released to home. Undiagnosed new problem with uncertain prognosis? @ -yes Drug Therapy requiring intensive monitoring for toxicity (Heparin, Nitro, Insulin, Cardizem)? @ -TPA Were any procedures done? @ -intubation Diagnosis/symptom? @ -acute cpa, elevated d-dimer Acute, or Chronic, or Acute on Chronic? @ -acute Uncomplicated (without systemic symptoms) or Complicated (systemic symptoms)? @ -complicated Side effects of treatment? @ -bleeding Exacerbation, Progression, or Severe Exacerbation? @ -No Poses a threat to life or bodily function? How? (Chest pain, USA, AL, pneumonia, PE, COPD, DKA, ARF, appy, cholecystitis, CVA, Diverticulitis, Homicidal, Suicidal, threat to staff... and all critical care pts) @ -yes, patient - Lab Data Result diagrams: 01/01/23 11:35 01/01/23 11:35 Lab Results 01/01/23 01/01/23 01/01/23 Range/Units 11:35 11:35 11:35 WBC 13.2 H (3.8-10.6) k/uL RBC 5.02 (4.30-5.90) m/uL Hgb 14.5 (13.0-17.5) gm/dL Hct 44.8 (39.0-53.0) % MCV 89.2 (80.0-100.0) fL MCH 28.8 (25.0-35.0) pg MCHC 32.3 (31.0-37.0) g/dL RDW 15.2 (11.5-15.5) % Plt Count 252 D (150-450) k/uL MPV 8.9 Neutrophils % 58 % Lymphocytes % 30 % Monocytes % 8 % Eosinophils % 1 % Basophils % 1 % Neutrophils # 7.7 (1.3-7.7) k/uL Lymphocytes # 3.9 (1.0-4.8) k/uL Monocytes # 1.1 H (0-1.0) k/uL Eosinophils # 0.1 (0-0.7) k/uL Basophils # 0.1 (0-0.2) k/uL PT 11.8 (10.0-12.5) sec INR 1.1 (<1.2) APTT 23.4 (22.0-30.0) sec D-Dimer 28.94 H (<0.60) mg/L FEU Sodium 138 (137-145) mmol/L Potassium 3.9 (3.5-5.1) mmol/L Chloride 106 (98-107) mmol/L Carbon Dioxide 17 L (22-30) mmol/L Anion Gap 15 mmol/L BUN 18 (9-20) mg/dL Creatinine 0.92 (0.66-1.25) mg/dL Est GFR (CKD-EPI)AfAm >90 (>60 ml/min/1.73 sqM) Est GFR (CKD-EPI)NonAf 84 (>60 ml/min/1.73 sqM) Glucose 182 H (74-99) mg/dL POC Glucose (mg/dL) (70-110) mg/dL POC Glu Magnetic Healer ID Lactic Ac Sepsis Rflx Plasma Lactic Acid Be (0.7-2.0) mmol/L Calcium 9.6 (8.4-10.2) mg/dL Total Bilirubin 0.8 (0.2-1.3) mg/dL AST 26 (17-59) U/L ALT 13 (4-49) U/L Alkaline Phosphatase 88 (38-126) U/L Troponin I (0.000-0.034) ng/mL NT-Pro-B Natriuret Pep 5770 pg/mL Total Protein 7.0 (6.3-8.2) g/dL Albumin 3.4 L (3.5-5.0) g/dL 01/01/23 01/01/23 01/01/23 Range/Units 11:35 11:35 11:46 WBC (3.8-10.6) k/uL RBC (4.30-5.90) m/uL Hgb (13.0-17.5) gm/dL Hct (39.0-53.0) % MCV (80.0-100.0) fL MCH (25.0-35.0) pg MCHC (31.0-37.0) g/dL RDW (11.5-15.5) % Plt Count (150-450) k/uL MPV Neutrophils % % Lymphocytes % % Monocytes % % Eosinophils % % Basophils % % Neutrophils # (1.3-7.7) k/uL Lymphocytes # (1.0-4.8) k/uL Monocytes # (0-1.0) k/uL Eosinophils # (0-0.7) k/uL Basophils # (0-0.2) k/uL PT (10.0-12.5) sec INR (<1.2) APTT (22.0-30.0) sec D-Dimer (<0.60) mg/L FEU Sodium (137-145) mmol/L Potassium (3.5-5.1) mmol/L Chloride (98-107) mmol/L Carbon Dioxide (22-30) mmol/L Anion Gap mmol/L BUN (9-20) mg/dL Creatinine (0.66-1.25) mg/dL Est GFR (CKD-EPI)AfAm (>60 ml/min/1.73 sqM) Est GFR (CKD-EPI)NonAf (>60 ml/min/1.73 sqM) Glucose (74-99) mg/dL POC Glucose (mg/dL) 184 H (70-110) mg/dL POC Glu Magnetic Healer ID Fetterly, Raquel Lactic Ac Sepsis Rflx Plasma Lactic Acid Be 6.0 H* (0.7-2.0) mmol/L Calcium (8.4-10.2) mg/dL Total Bilirubin (0.2-1.3) mg/dL AST (17-59) U/L ALT (4-49) U/L Alkaline Phosphatase (38-126) U/L Troponin I 0.118 H* (0.000-0.034) ng/mL NT-Pro-B Natriuret Pep pg/mL Total Protein (6.3-8.2) g/dL Albumin (3.5-5.0) g/dL 01/01/23 Range/Units 12:17 WBC (3.8-10.6) k/uL RBC (4.30-5.90) m/uL Hgb (13.0-17.5) gm/dL Hct (39.0-53.0) % MCV (80.0-100.0) fL MCH (25.0-35.0) pg MCHC (31.0-37.0) g/dL RDW (11.5-15.5) % Plt Count (150-450) k/uL MPV Neutrophils % % Lymphocytes % % Monocytes % % Eosinophils % % Basophils % % Neutrophils # (1.3-7.7) k/uL Lymphocytes # (1.0-4.8) k/uL Monocytes # (0-1.0) k/uL Eosinophils # (0-0.7) k/uL Basophils # (0-0.2) k/uL PT (10.0-12.5) sec INR (<1.2) APTT (22.0-30.0) sec D-Dimer (<0.60) mg/L FEU Sodium (137-145) mmol/L Potassium (3.5-5.1) mmol/L Chloride (98-107) mmol/L Carbon Dioxide (22-30) mmol/L Anion Gap mmol/L BUN (9-20) mg/dL Creatinine (0.66-1.25) mg/dL Est GFR (CKD-EPI)AfAm (>60 ml/min/1.73 sqM) Est GFR (CKD-EPI)NonAf (>60 ml/min/1.73 sqM) Glucose (74-99) mg/dL POC Glucose (mg/dL) (70-110) mg/dL POC Glu Magnetic Healer ID Lactic Ac Sepsis Rflx Y Plasma Lactic Acid Be (0.7-2.0) mmol/L Calcium (8.4-10.2) mg/dL Total Bilirubin (0.2-1.3) mg/dL AST (17-59) U/L ALT (4-49) U/L Alkaline Phosphatase (38-126) U/L Troponin I (0.000-0.034) ng/mL NT-Pro-B Natriuret Pep pg/mL Total Protein (6.3-8.2) g/dL Albumin (3.5-5.0) g/dL Disposition Clinical Impression: Cardiac arrest Disposition: Referrals: Guru Pennington MD [Primary Care Provider] - 1-2 days Preliminary Cause of : cardiac arrest
[2023-01-01 19:04] VITALS: BP 0/0; PULSE 0; RESP 0
== END 2023-01-01 14:00 | disposition expired ==
LOC: EC 11:19
DX: I46.9 Cardiac arrest, cause unspecified (principal); I45.10 Unspecified right bundle-branch block; E11.9 Type 2 diabetes mellitus without complications; Z88.2 Allergy status to sulfonamides; Z79.84 Long term (current) use of oral hypoglycemic drugs
CPT/HCPCS: 36415; 93005; 85379; 83880; 80053; 83605; 84484; 85025; 85610; 85730; 71045; 99291; 37195; 96374; 31500; J2997